=== PATIENT | female | born 1950 | race Caucasian/White ===

== ENCOUNTER 2017-11-24 17:52 | Inpatient (IN) | payer BC, SELFPAY ==
[2017-11-24] VITALS (16 sets, daily range): BP systolic 122–136; BP diastolic 67–91; PULSE 101–117; RESP 8–41; TEMP 36.4–37.2; O2SAT 75–90
--- NOTE | 2017-11-24 18:27 | DI.RAD_ITS ---
SYMPTOMS/DIAGNOSIS: COUGH, SPUTUM, HYPOXIA FRONTAL AND LATERAL CHEST: Comparison examination is 10/12/16. The heart size and pulmonary vasculature are within normal limits and stable. The lungs are free of infiltrates. No pneumothorax is identified. There is blunting of the costophrenic angles seen posteriorly which appear stable and likely reflect scarring. No definite effusions are seen. The bones are intact. Mild degenerative changes are seen in the spine. IMPRESSION: No significant change in appearance of the chest x-ray since . No acute pulmonary process.
--- NOTE | 2017-11-24 18:29 | W.ED.GENAD ---
Discharge Plan Discharge Details Chief Complaint: SOB Clinical Impression: COPD exacerbation Primary Care Provider: Joyce Reeves ED Provider: Jose Antonio Virgen Disposition Patient Disposition: [facility] INPATIENT Condition: Improving Medical Decision Making [facility] Narrative Medical decision making narrative: 67-year-old female smoker presents with cough, congestion, abduction of colored sputum over days time. She arrives to triage pulse of 114 and room air oxygenation of 75%. Patient placed on oxygen and triaged to room. On exam she has diminished breath sounds throughout. Differential diagnosis includes pneumonia, COPD exacerbation, CHF. Patient had IV access established, given DuoNeb inhaled updraft, parenteral steroids, referred for x-ray and laboratory test. Laboratories are notable for hyponatremia of 131. Patient is a white blood cell count of 16, hematocrit 45, platelets 326. Troponin is negative but BNP elevated at 1023. Patient improved with treatment for COPD. Her chest x-ray does not show focal infiltrate. She does not have evidence of pulmonary edema. She has persistent oxygen dependence and mild increased respiratory rate. She will require admission to the hospital for COPD exacerbation. Case was discussed with . ECG Data Attestation: I personally reviewed and interpreted this ECG (s) as follows: Interpretation: Sinus tachycardia, rate is 105, the QRS shows intraventricular conduction delay. There is repolarization abnormality with T-wave inversions in the precordium and inferiorly. Do not have comparisons available. HPI - General Adult General Date/Time Provider Initiated Documentation: 11/24/17 18:10. Limitations to Documentation: no limitations. Information obtained by: patient. History of Present Illness 67 year old F presents to the emergency department with the chief complaint of Shortness of, described as moderate, and is localized to the chest. Patient reports no radiation. Patient started experiencing this day(s) and it has been constant. Rest improves symptom(s), Movement worsens symptoms . Patient notes denies chest pain. HPI Narrative: 67-year-old female smoker presents with 4 days of cough, congestion, production of saez colored sputum. It is worse with ambulation, moderate, improved with rest and with oxygen applied after triage. No fever or known sick contacts Patient denies chest pain. She has no new lower extremity swelling. She has chronic lower extremity swelling which takes diuretic and this has caused her suffer some leg cramps. Related Data Allergies Allergy/AdvReac Type Severity Reaction Status Date / Time No Known Allergies Allergy Unverified 11/24/17 18:18 General Stated Complaint: SOB VIRY: 2 Review of Systems Review of Systems 8 systems reviewed, otherwise - PFSH Social History Smoking/Tobacco Use Status: Current every day Exam Const General: cooperative Orientation: alert and awake HENMT Head: normal to inspection and normocephalic Ears: external ears normal Eyes General: appearance normal, both eyes and all related structures Pupils: PERRL EOM: EOM intact bilaterally Neck Neck: normal visual inspection and full ROM Chest Chest: normal inspection of the chest and normal palpation of entire chest wall Resp Effort & Inspection: audible wheezes, cough and other (Diminished. Questions fine rales at the base) Cardio Rate: regular rate Rhythm: regular rhythm GI Palpation: soft and no hepatosplenomegaly Skin General skin exam: no rashes or lesions noted Neuro General: alert, awake and oriented x3 Extrem General: full ROM and normal capillary refill Psych Mental Status: mental status grossly normal Speech and Movement: speech and movement normal Mood: congruent mood Affect: normal affect Attitude: cooperative Course Vital Signs Temperature 37.2 C 11/24/17 18:11 Pulse 114 H 11/24/17 18:11 Blood Pressure 122/67 11/24/17 18:11 Pulse Oximetry 75 L 11/24/17 18:11 Temperature 37.2 C 11/24/17 18:11 Pulse 114 H 11/24/17 18:11 Blood Pressure 122/67 11/24/17 18:11 Pulse Oximetry 75 L 11/24/17 18:11
--- NOTE | 2017-11-24 18:33 | ED.GENADUL_ITS ---
Discharge Plan Discharge Details Chief Complaint: SOB Clinical Impression: COPD exacerbation Primary Care Provider: Joyce Reeves ED Provider: Jose Antonio Virgen Disposition Patient Disposition: [facility] INPATIENT Condition: Improving Medical Decision Making [facility] Narrative Medical decision making narrative: 67-year-old female smoker presents with cough , congestion, abduction of colored sputum over days time. She arrives to triage pulse of 114 and room air oxygenation of 75%. Patient placed on oxygen and triaged to room. On exam she has diminished breath sounds throughout. Differential diagnosis includes pneumonia, COPD exacerbation, CHF. Patient had IV access established, given DuoNeb inhaled updraft, parenteral steroids, referred for x-ray and laboratory test. Laboratories are notable for hyponatremia of 131. Patient is a white blood cell count of 16, hematocrit 45, platelets 326. Troponin is negative but BNP elevated at 1023. Patient improved with treatment for COPD. Her chest x-ray does not show focal infiltrate. She does not have evidence of pulmonary edema. She has persistent oxygen dependence and mild increased respiratory rate. She will require admission to the hospital for COPD exacerbation. Case was discussed with . ECG Data Attestation: I personally reviewed and interpreted this ECG (s) as follows: Interpretation: Sinus tachycardia, rate is 105, the QRS shows intraventricular conduction delay. There is repolarization abnormality with T-wave inversions in the precordium and inferiorly. Do not have comparisons available. HPI - General Adult General Date/Time Provider Initiated Documentation: 11/24/17 18:10 . Limitations to Documentation: no limitations . Information obtained by: patient . History of Present Illness 67 year old F presents to the emergency department with the chief complaint of Shortness of, described as moderate, and is localized to the chest. Patient reports no radiation. Patient started experiencing this day(s) and it has been constant. Rest improves symptom(s), Movement worsens symptoms . Patient notes denies chest pain. HPI Narrative: 67-year-old female smoker presents with 4 days of cough, congestion, production of saez colored sputum. It is worse with ambulation, moderate, improved with rest and with oxygen applied after triage. No fever or known sick contacts Patient denies chest pain. She has no new lower extremity swelling. She has chronic lower extremity swelling which takes diuretic and this has caused her suffer some leg cramps. Related Data Allergies Allergy/AdvReac Type Severity Reaction Status Date / Time No Known Allergies Allergy Unverified 11/24/17 18:18 General Stated Complaint: SOB VIRY: 2 Review of Systems Review of Systems 8 systems reviewed, otherwise - PFSH Social History Smoking/Tobacco Use Status: Current every day Exam Const General: cooperative Orientation: alert and awake HENMT Head: normal to inspection and normocephalic Ears: external ears normal Eyes General: appearance normal, both eyes and all related structures Pupils: PERRL EOM: EOM intact bilaterally Neck Neck: normal visual inspection and full ROM Chest Chest: normal inspection of the chest and normal palpation of entire chest wall Resp Effort & Inspection: audible wheezes, cough and other (Diminished. Questions fine rales at the base) Cardio Rate: regular rate Rhythm: regular rhythm GI Palpation: soft and no hepatosplenomegaly Skin General skin exam: no rashes or lesions noted Neuro General: alert, awake and oriented x3 Extrem General: full ROM and normal capillary refill Psych Mental Status: mental status grossly normal Speech and Movement: speech and movement normal Mood: congruent mood Affect: normal affect Attitude: cooperative Course Vital Signs Temperature 37.2 C 11/24/17 18:11 Pulse 114 H 11/24/17 18:11 Blood Pressure 122/67 11/24/17 18:11 Pulse Oximetry 75 L 11/24/17 18:11 Temperature 37.2 C 11/24/17 18:11 Pulse 114 H 11/24/17 18:11 Blood Pressure 122/67 11/24/17 18:11 Pulse Oximetry 75 L 11/24/17 18:11
[2017-11-24 18:40] LABS: Abs Immature Grans 0.03 k/cumm (0.0-0.09); Absolute Basophil Count 0.03 k/cumm (0.0-0.2); Absolute Eosinophil Count 0.03 k/cumm (0.0-0.7); Absolute Lymphocyte Count 1.33 k/cumm (1.2-3.4); Basophils % 0.2; Eosinophils % 0.2; HCT 45.6 % (36.0-46.0); HGB 15.2 g/dL (12.0-15.5); Immature Grans % 0.2; Lymphocytes % 7.9; Mean Corp. HGB Concentration 33.3 g/dL (32.0-36.0); Mean Corpuscular Hemoglobin 33.5 pg (27.0-33.0); Mean Corpuscular Volume 100.4 fL (80-95); Mean Platelet Volume 8.3 fL (8.0-11.0); Monocytes % 7.1; Neutrophils % 84.4; Platelet Count 326 x1000/uL (130-400); RBC 4.54 m/cumm (4.00-5.20); White Blood Cell Count 16.86 k/cumm (4.4-10.8)
[2017-11-24] MEDS: methylPREDNISolone SUCC 125 MG VIAL IVP (18:40)
[2017-11-24] MEDS: Albuterol/Ipratropium 3 ML UPD VIAL UPD ×2 (18:51→23:44)
[2017-11-24 18:52] LABS: Absolute Neutrophil Count 14.23 k/cumm (1.2-6.7)
[2017-11-24 19:00] LABS: ALT 16 U/L (12-78); AST 15 U/L (15-37); Albumin 2.9 g/dL (3.4-5.0); Alkaline Phosphatase 105 U/L (46-116); Anion Gap 2.7 mmol/L (3-11); BUN 29 mg/dL (7-18); Bilirubin, Total 0.5 mg/dL (0.2-1.0); CO2 34.3 mmol/L (21.0-32.0); CREATININE 1.13 mg/dL (0.55-1.02); Calcium 9.4 mg/dL (8.5-10.1); Chloride 94 mmol/L (98-107); Estimated GFR 48.33 (mL/min/1.73m2); Glucose 239 mg/dL (70-100); Magnesium 1.6 mg/dL (1.8-2.4); NT-proBNP 1023 pg/mL; Potassium 4.1 mmol/L (3.5-5.1); Sodium 131 mmol/L (136-145); Troponin I < 0.02 ng/mL (0.00-0.06)
--- NOTE | 2017-11-24 19:49 | DI.VRAD_ITS ---
EXAM: XR Chest, 2 Views CLINICAL HISTORY: 67 years old, female; Pain; Chest pain; Additional info: Cough, sputum hypoxia TECHNIQUE: Frontal and lateral views of the chest. COMPARISON: No relevant prior studies available. FINDINGS: Lungs: Blunting of the posterior costophrenic angles, small effusions cannot be excluded. The remainder of the lungs clear. Pleural space: Unremarkable. No pneumothorax. Heart: Borderline cardiomegaly. Mediastinum: Unremarkable. Bones/joints: Unremarkable. IMPRESSION: Blunting of the posterior costophrenic angles, small effusions and/or infiltrates cannot be excluded. The remainder of the lungs clear. Dictated and Authenticated by: Maynor James MD. Ordering:SAHIL JAMES MD
--- NOTE | 2017-11-24 20:03 | W.PM.HP.N ---
CC: SOB HPI: 67 F smoker with h/o COPD, in with 4 days of productive cough and SOB. In ER sat of 75% noted. Given updraft, solumedrol; continued O2 requirmnet, admitted for further treatment. PMH COPD, depression, DM All: Sulfa Med: unknown (family will bring in bottles) PE: 129/79, p 109, rr 17-27, O2 sat 85 % 2l HEENT unremarkable; neck supple; lungs decreased BS, diffues wheeze; heart: distant, RRR; abd: soft, NT; extremities: stasis changes Lab WBC 16K, Na 131, CXR: small effusions, formal reading is otherwise clear, but to my eye possibly mild vascular congestion; BNP 1023, Troponion negative A/P: COPD exacerbation, perhaps with element of (new onset) CHF. Will treat with oral antibiotics, steroids and updrafts. Also trial diuretic and consider ECHO. Family will bring in meds in AM. PFSH Medical History Depression (Chronic) Tobacco abuse (Acute) COPD with acute exacerbation (Acute) Social History Smoking/Tobacco Use Status: Current every day Meds Home Medications Medication Instructions Recorded Confirmed Type albuterol sulfate [ProAir HFA] 2 puff INHALATION Q6H PRN PRN 11/25/17 11/25/17 History aspirin 81 mg PO DAILY 11/25/17 11/25/17 History aspirin [Aspir-81] 1 PO DAILY 11/25/17 History cholecalciferol (vitamin D3) 2 PO DAILY 11/25/17 History cholecalciferol (vitamin D3) 2,000 unit PO DAILY 11/25/17 11/25/17 History [Vitamin D3] cinnamon bark [Cinnamon] 2 PO DAILY 11/25/17 History cyclobenzaprine 1 PO TID PRN PRN 11/25/17 History cyclobenzaprine 1 tab PO TID PRN PRN 11/25/17 11/25/17 History escitalopram oxalate [Lexapro] 1 PO DAILY 11/25/17 History escitalopram oxalate [Lexapro] 20 mg PO DAILY 11/25/17 11/25/17 History glipizide 5 mg PO BID 11/25/17 11/25/17 History glipizide [Glucotrol XL] 1 PO BID 11/25/17 History hydrochlorothiazide 1 PO DAILY 11/25/17 History hydrochlorothiazide 50 mg PO DAILY 11/25/17 11/25/17 History lisinopril 1 PO DAILY 11/25/17 History metformin 1,000 mg PO BID 11/25/17 11/25/17 History metformin 2 BID 11/25/17 History naproxen 1 PO BID PRN PRN 11/25/17 History naproxen 500 mg PO BID PRN 11/25/17 11/25/17 History omega [id number]-fish oil [Fish Oil] 1 PO DAILY 11/25/17 History omega-3 fatty acids 1,000 mg PO DAILY 11/25/17 11/25/17 History rosuvastatin [Crestor] 1 PO DAILY 11/25/17 History rosuvastatin [Crestor] 10 mg PO DAILY 11/25/17 11/25/17 History Allergies Allergy/AdvReac Type Severity Reaction Status Date / Time No Known Allergies Allergy Unverified 11/24/17 18:18 Results Labs : 11/28/17 06:35 11/28/17 06:35 Abnormal lab results 11/24/17 11/24/17 Range/Units 18:35 18:35 WBC 16.86 H (4.4-10.8) k/cumm MCV 100.4 H (80-95) fL MCH 33.5 H (27.0-33.0) pg Absolute Neutrophils 14.23 H (1.2-6.7) k/cumm Absolute Monocytes 1.20 H (0.11-0.7) k/cumm Sodium 131 L (136-145) mmol/L Chloride 94 L (98-107) mmol/L Carbon Dioxide 34.3 H (21.0-32.0) mmol/L Anion Gap 2.7 L (3-11) mmol/L BUN 29 H (7-18) mg/dL Creatinine 1.13 H (0.55-1.02) mg/dL Glucose 239 H (70-100) mg/dL Magnesium 1.6 L (1.8-2.4) mg/dL NT-Pro-B Natriuret Pep 1023 H ( - 299) pg/mL Albumin 2.9 L (3.4-5.0) g/dL Diabetes panel 11/24/17 Range/Units 18:35 Sodium 131 L (136-145) mmol/L Potassium 4.1 (3.5-5.1) mmol/L Chloride 94 L (98-107) mmol/L Carbon Dioxide 34.3 H (21.0-32.0) mmol/L BUN 29 H (7-18) mg/dL Creatinine 1.13 H (0.55-1.02) mg/dL Glucose 239 H (70-100) mg/dL Calcium 9.4 (8.5-10.1) mg/dL AST 15 (15-37) U/L ALT 16 (12-78) U/L Alkaline Phosphatase 105 (46-116) U/L Total Protein 8.0 (6.4-8.2) g/dL Albumin 2.9 L (3.4-5.0) g/dL Calcium panel 11/24/17 Range/Units 18:35 Calcium 9.4 (8.5-10.1) mg/dL Albumin 2.9 L (3.4-5.0) g/dL Pituitary panel 11/24/17 Range/Units 18:35 Sodium 131 L (136-145) mmol/L Potassium 4.1 (3.5-5.1) mmol/L Chloride 94 L (98-107) mmol/L Carbon Dioxide 34.3 H (21.0-32.0) mmol/L BUN 29 H (7-18) mg/dL Creatinine 1.13 H (0.55-1.02) mg/dL Glucose 239 H (70-100) mg/dL Calcium 9.4 (8.5-10.1) mg/dL Adrenal panel 11/24/17 Range/Units 18:35 Sodium 131 L (136-145) mmol/L Potassium 4.1 (3.5-5.1) mmol/L Chloride 94 L (98-107) mmol/L Carbon Dioxide 34.3 H (21.0-32.0) mmol/L BUN 29 H (7-18) mg/dL Creatinine 1.13 H (0.55-1.02) mg/dL Glucose 239 H (70-100) mg/dL Calcium 9.4 (8.5-10.1) mg/dL Total Bilirubin 0.5 (0.2-1.0) mg/dL AST 15 (15-37) U/L ALT 16 (12-78) U/L Alkaline Phosphatase 105 (46-116) U/L Total Protein 8.0 (6.4-8.2) g/dL Albumin 2.9 L (3.4-5.0) g/dL Laboratory Tests 11/24/17 11/24/17 18:35 18:35 WBC 16.86 H RBC 4.54 Hgb 15.2 Hct 45.6 MCV 100.4 H MCH 33.5 H MCHC 33.3 RDW 14.0 Plt Count 326 MPV 8.3 Immature Gran % 0.2 Neutrophils % 84.4 Lymphocytes % 7.9 Monocytes % 7.1 Eosinophils % 0.2 Basophils % 0.2 Absolute Neutrophils 14.23 H Absolute Lymphocytes 1.33 Absolute Monocytes 1.20 H Absolute Eosinophils 0.03 Absolute Basophils 0.03 Sodium 131 L Potassium 4.1 Chloride 94 L Carbon Dioxide 34.3 H Anion Gap 2.7 L BUN 29 H Creatinine 1.13 H Estimated GFR/1.73 m2 48.33 Glucose 239 H Calcium 9.4 Magnesium 1.6 L Total Bilirubin 0.5 AST 15 ALT 16 Alkaline Phosphatase 105 Troponin I < 0.02 NT-Pro-B Natriuret Pep 1023 H Total Protein 8.0 Albumin 2.9 L
[2017-11-24] MEDS: Furosemide 20 MG/2 ML VIAL IVP (22:57)
[2017-11-25] VITALS (12 sets, daily range): BP systolic 112–130; BP diastolic 58–78; PULSE 101–115; RESP 4–28; TEMP 36.4–37.1; O2SAT 87–96
[2017-11-25] MEDS: Normal Saline Flush 10 ML SYR IVP ×3 (02:50→17:47)
[2017-11-25] MEDS: methylPREDNISolone SUCC 40 MG VIAL IVP ×3 (02:51→17:45)
[2017-11-25] MEDS: Albuterol/Ipratropium 3 ML UPD VIAL UPD ×4 (05:50→23:48)
--- NOTE | 2017-11-25 08:26 | PDOC.CMIN ---
- If Service Date Differs Date of service: 11/25/17 Care Management Initial Assess REASON FOR HOSPITALIZATION:: COPD exacerbation, perhaps with element of (new onset) CHF. Will treat with oral antibiotics, steroids and updrafts. Also trial diuretic and consider ECHO. PAST MEDICAL HISTORY/PAST SURGICAL HISTORY:: COPD, depression, DM, current everyday smoker: 3/4 ppd PREVIOUS FUNCTIONAL STATUS/SOCIAL/FAMILY SUPPORTS:: Shira resides alone in [place], [place] with her two dogs; a boxer and a chihuahua. She has a daughter, Effie who resides in [place] and a Grandson, Camilo who resides in [place] as well as a healthy support network of friends per her report. 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 Shira is independent with all ADLs in the community. CURRENT FUNCTIONAL STATUS:: Shira is sitting up on the side of the bed, her daughter at her bedside. She reports feeling exhausted and not sleeping well. She is pleasant and appropriate in interaction. She reports a good stay at [facility] thus far and reports staff has been supportive and responsive. CM provides assessment of current needs; Shira signs up for portal, accepts AD document for review and requests nicotrol inhaler when replacement need is reviewed. CM notified provider; Blanche ROBERTO of nicotene replacement request. ADVANCE DIRECTIVES:: Document provided to patient for review. Has patient been provided with information about the portal?: Yes Did the patient sign up for the portal?: Yes ([email or web address]) CODE STATUS:: Full Code INSURANCE COVERAGE / FINANCIAL ISSUES:: BC/BS CURRENT HOME/COMMUNITY SERVICES/EQUIPMENT:: No current services or equipment. PRIMARY CARE PHYSICIAN:: Joyce Reeves POTENTIAL DISCHARGE NEEDS:: ECHO, Possible coordination of home oxygen; coordinated by RT. Follow up appointment with PCP. PATIENT/FAMILY EDUCATION NEEDS:: Review of discharge instructions, discuss Ask Me Three, provide education materials regarding COPD and CHF; coordinated with RN. ANTICIPATED BARRIERS TO DISCHARGE:: None identified. TRANSPORTATION:: Via private vehicle with family. PLAN:: Shira will be treated with oral antibiotics, steroids and updrafts, possible trial of diuretic and possible ECHO per MD. CM will continue to follow and support discharge planning considerations. Shira, once medically stable will return home. RT and MD will determine need for additional services including possible home O2. Shira will continue to be treated and evaluated for further needs, she will transport via private vehicle with family. Readmission - Within the Past 30 Days Yes or No: N
--- NOTE | 2017-11-25 08:51 | INITIAL_ITS ---
- If Service Date Differs Date of service: 11/25/17 Care Management Initial Assess REASON FOR HOSPITALIZATION:: COPD exacerbation, perhaps with element of (new onset) CHF. Will treat with oral antibiotics, steroids and updrafts. Also trial diuretic and consider ECHO. PAST MEDICAL HISTORY/PAST SURGICAL HISTORY:: COPD, depression, DM, current everyday smoker: 3/4 ppd PREVIOUS FUNCTIONAL STATUS/SOCIAL/FAMILY SUPPORTS:: Shira resides alone in [place], [place] with her two dogs; a boxer and a chihuahua. She has a daughter, Effie who resides in [place] and a Grandson, Camilo who resides in [place] as well as a healthy support network of friends per her report. 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 Shira is independent with all ADLs in the community. CURRENT FUNCTIONAL STATUS:: Shira is sitting up on the side of the bed, her daughter at her bedside. She reports feeling exhausted and not sleeping well. She is pleasant and appropriate in interaction. She reports a good stay at [facility] thus far and reports staff has been supportive and responsive. CM provides assessment of current needs; Shira signs up for portal, accepts AD document for review and requests nicotrol inhaler when replacement need is reviewed. CM notified provider; Blanche ROBERTO of nicotene replacement request. ADVANCE DIRECTIVES:: Document provided to patient for review. Has patient been provided with information about the portal?: Yes Did the patient sign up for the portal?: Yes ([email or web address]) CODE STATUS:: Full Code INSURANCE COVERAGE / FINANCIAL ISSUES:: BC/BS CURRENT HOME/COMMUNITY SERVICES/EQUIPMENT:: No current services or equipment. PRIMARY CARE PHYSICIAN:: Joyce Reeves POTENTIAL DISCHARGE NEEDS:: ECHO, Possible coordination of home oxygen; coordinated by RT. Follow up appointment with PCP. PATIENT/FAMILY EDUCATION NEEDS:: Review of discharge instructions, discuss Ask Me Three, provide education materials regarding COPD and CHF; coordinated with RN. ANTICIPATED BARRIERS TO DISCHARGE:: None identified. TRANSPORTATION:: Via private vehicle with family. PLAN:: Shira will be treated with oral antibiotics, steroids and updrafts, possible trial of diuretic and possible ECHO per MD. CM will continue to follow and support discharge planning considerations. Shira, once medically stable will return home. RT and MD will determine need for additional services including possible home O2. Shira will continue to be treated and evaluated for further needs, she will transport via private vehicle with family. Readmission - Within the Past 30 Days Yes or No: N
[2017-11-25 09:13] LABS: Abs Immature Grans 0.06 k/cumm (0.0-0.09); Absolute Basophil Count 0.01 k/cumm (0.0-0.2); Absolute Lymphocyte Count 0.53 k/cumm (1.2-3.4); Absolute Monocyte Count 0.31 k/cumm (0.11-0.7); Basophils % 0.1; HCT 44.6 % (36.0-46.0); HGB 14.5 g/dL (12.0-15.5); Immature Grans % 0.5; Lymphocytes % 4.4; Mean Corp. HGB Concentration 32.5 g/dL (32.0-36.0); Mean Corpuscular Hemoglobin 33.3 pg (27.0-33.0); Mean Corpuscular Volume 102.5 fL (80-95); Mean Platelet Volume 8.2 fL (8.0-11.0); Monocytes % 2.6; Neutrophils % 92.4; Platelet Count 285 x1000/uL (130-400); RBC 4.35 m/cumm (4.00-5.20); RBC Distribution Width 13.9 % (11.7-14.6); White Blood Cell Count 12.11 k/cumm (4.4-10.8)
[2017-11-25 09:14] LABS: Absolute Neutrophil Count 11.19 k/cumm (1.2-6.7)
[2017-11-25 09:43] LABS: Anion Gap 2.5 mmol/L (3-11); BUN 31 mg/dL (7-18); CO2 36.5 mmol/L (21.0-32.0); CREATININE 1.19 mg/dL (0.55-1.02); Calcium 8.7 mg/dL (8.5-10.1); Chloride 93 mmol/L (98-107); Estimated GFR 45.52 (mL/min/1.73m2); Glucose 300 mg/dL (70-100); Magnesium 1.7 mg/dL (1.8-2.4); Potassium 4.5 mmol/L (3.5-5.1); Sodium 132 mmol/L (136-145)
--- NOTE | 2017-11-25 11:24 | CHAPLAIN ---
Shira was in bed, visiting with family members and friends, when I stopped in. I introduced myself and offered support. Shira wasn't interested further conversation at this point.
[2017-11-25] MEDS: Magnesium Oxide 400 MG TAB PO ×2 (11:29→20:52)
[2017-11-25] MEDS: Insulin Aspart 300 UNITS/3 ML PEN SC ×2 (12:22→18:23)
--- NOTE | 2017-11-25 12:29 | MERGE_ITS ---
*[facility]* * Cardiology* [address] [place] [address] Date of study: 11/25/2017 Transthoracic Echocardiography M-mode, complete 2D, complete spectral Doppler, and color Doppler *STUDY CONCLUSIONS* Summary: 1. Left ventricle: The cavity size was normal. Wall thickness was increased in a pattern of mild LVH. Systolic function was normal. The estimated ejection fraction was 60-65%. Wall motion was normal; there were no regional wall motion abnormalities. 2. Ventricular septum: The contour showed diastolic flattening and systolic flattening. These changes are consistent with RV volume and RV pressure overload. 3. Aortic valve: Moderate focal calcification involving the noncoronary cusp. 4. Left atrium: The atrium was moderately to severely dilated. 5. Right ventricle: The cavity size was mildly dilated. Wall thickness was mildly increased. Systolic function was mildly reduced. 6. Atrial septum: There was increased thickness of the septum, consistent with lipomatous hypertrophy. 7. Pulmonary arteries: Pulmonary systolic pressure was moderately increased. PA peak pressure: 53mm Hg (S). *PATIENT PRESENTATION* Height: 162.6cm ((64in) ) S/D Pressure: 112 / 58 Weight: 136.1kg ((299.4lb) ) BSA: 2.56m^2 Test start time: 12:40 PM. Test stop time: 01:30 PM. PERFORMING Unknown PERFORMING [facility] ASH P[employer] WORKER RT Vanesa AdamsR)(CT), [facility] ORDERING Noni Badillo REFERRING Noni Badillo *PROCEDURE DATA* Procedure information: The patient was identified by two identifiers. This study was interpreted by [facility]. Pertinent images and digital data are archived for permanent storage and are available for subsequent review. No prior study was available for comparison. Study status: Routine. Transthoracic echocardiography. M-mode, complete 2D, complete spectral Doppler, and color Doppler. A Transthoracic Echocardiogram was performed. Scanning was performed from the parasternal, apical, subcostal, and suprasternal notch acoustic windows. Images were obtained using an [id number] cardiac ultrasound machine. Image quality was fair. The study was technically limited due to body habitus. Study completion: The patient tolerated the procedure well. History: PMH: CHF. *CARDIAC ANATOMY* Left ventricle: The cavity size was normal. Wall thickness was increased in a pattern of mild LVH. Systolic function was normal. The estimated ejection fraction was 60-65%. Wall motion was normal; there were no regional wall motion abnormalities. Aortic valve: Trileaflet; mildly thickened, mildly calcified leaflets. Moderate focal calcification involving the noncoronary cusp. Mobility was not restricted. Doppler: Transvalvular velocity was within the normal range. There was no stenosis. There was no significant regurgitation. VTI ratio of LVOT to aortic valve: 0.64. Valve area (VTI): 2.2cm^2. Indexed valve area (VTI): 0.9cm^2/m^2. Peak velocity ratio of LVOT to aortic valve: 0.6. Valve area (Vmax): 2.1cm^2. Indexed valve area (Vmax): 0.8cm^2/m^2. Mean velocity ratio of LVOT to aortic valve: 0.66. Valve area (Vmean): 2.3cm^2. Indexed valve area (Vmean): 0.9cm^2/m^2. Mean gradient (S): 12.1mm Hg. Peak gradient (S): 22.8mm Hg. Aorta: Aortic root: The aortic root was normal in size. Ascending aorta: The ascending aorta was normal in size. Mitral valve: Structurally normal valve. Mobility was not restricted. Doppler: Transvalvular velocity was within the normal range. There was no evidence for stenosis. There was no significant regurgitation. Valve area by pressure half-time: 7.4cm^2. Indexed valve area by pressure half-time: 2.9cm^2/m^2. Peak gradient (D): 4.3mm Hg. Left atrium: The atrium was moderately to severely dilated. Atrial septum: There was increased thickness of the septum, consistent with lipomatous hypertrophy. Right ventricle: The cavity size was mildly dilated. Wall thickness was mildly increased. Systolic function was mildly reduced. Ventricular septum: The contour showed diastolic flattening and systolic flattening. These changes are consistent with RV volume and RV pressure overload. Pulmonic valve: Poorly visualized. Doppler: Transvalvular velocity was within the normal range. There was no evidence for stenosis. There was no significant regurgitation. Tricuspid valve: Structurally normal valve. Doppler: Transvalvular velocity was within the normal range. There was no evidence for stenosis. There was mild regurgitation. Pulmonary artery: Poorly visualized. Pulmonary systolic pressure was moderately increased. Right atrium: The atrium was normal in size. Pericardium: A prominent pericardial fat pad was present. There was no pericardial effusion. Systemic veins: Inferior vena cava: Well visualized. The vessel was patent and normal in size. The respirophasic diameter changes were in the normal range (greater than or equal to 50%), consistent with normal central venous pressure. Baseline ECG: Tachycardia with wide QRS Measurements Left ventricle Value Reference LV ID, ED, PLAX 4.7 cm 3.5 - 6.0 LV ID, ES, PLAX 3.2 cm 2.1 - 4.0 LV PW thickness, ED, PLAX 1.2 cm LV end-diastolic volume, 1-p A2C 64 ml LV end-diastolic volume, 1-p A4C 79 ml LV ejection fraction, 1-p A4C 64 % LV e', lateral 0.075 m/sec LV E/e', lateral 14 LV e', medial 0.079 m/sec LV E/e', medial 13 LV e', average 0.077 m/sec LV E/e', average 13 Ventricular septum Value Reference IVS thickness, ED, PLAX 1.3 cm LVOT Value Reference LVOT ID, A-P 2.1 cm LVOT area 3.4 cm^2 LVOT peak velocity, S 1.44 m/sec LVOT mean velocity, S 1.1 m/sec LVOT VTI, S 25.2 cm LVOT peak gradient, S 8.3 mm Hg LVOT mean gradient, S 5.3 mm Hg Stroke volume (SV), LVOT DP 86 ml Stroke index (SV/bsa), LVOT DP 34 ml/m^2 Aortic valve Value Reference Aortic valve peak velocity, S 2.4 m/sec Aortic valve mean velocity, S 1.66 m/sec Aortic valve VTI, S 39.4 cm Aortic mean gradient, S 12.1 mm Hg Aortic peak gradient, S 22.8 mm Hg VTI ratio, LVOT/AV 0.64 Aortic valve area, VTI 2.2 cm^2 Velocity ratio, peak, LVOT/AV 0.6 Aortic valve area, peak velocity 2.1 cm^2 Velocity ratio, mean, LVOT/AV 0.66 Aortic valve area, mean velocity 2.3 cm^2 Aortic valve area/bsa, mean velocity 0.9 cm^2/m^2 Aorta Value Reference Aortic root ID, ED 2.9 cm Ascending aorta ID, A-P, S 2.6 cm Left atrium Value Reference LA ID, A-P, ES 3.5 cm LA ID/bsa, A-P 1.4 cm/m^2 <=2.2 LA area, ES, A4C (H) 27.9 cm^2 8.8 - 23.4 LA area, ES, A2C 14 cm^2 LA volume/bsa, ES, 1-p A4C 43 ml/m^2 LA volume, ES, 2-p 66 ml LA volume/bsa, ES, 2-p 26 ml/m^2 LA/aortic root ratio 1.22 Mitral valve Value Reference Mitral E-wave peak velocity 1.03 m/sec Mitral A-wave peak velocity 1.28 m/sec Mitral deceleration time (L) 103 ms 150 - 230 Mitral pressure half-time 30 ms Mitral peak gradient, D 4.3 mm Hg Mitral E/A ratio, peak 0.81 Mitral valve area, PHT, DP 7.4 cm^2 Pulmonary arteries Value Reference PA pressure, S, DP (H) 53 mm Hg <=30 Tricuspid valve Value Reference Tricuspid regurg peak velocity 3.3 m/sec Tricuspid peak RV-RA gradient 42.9 mm Hg Right atrium Value Reference RA area, ES, A4C 15.1 cm^2 8.3 - 19.5 Systemic veins Value Reference Estimated CVP 10 mm Hg Right ventricle Value Reference RV pressure, S, DP (H) 53 mm Hg <=30 Legend: (L) and (H) rommel values outside specified reference range. I have personally reviewed the images and have reviewed and edited the reported findings. Electronically signed by Erin Lewis 11/25/2017 16:04
--- NOTE | 2017-11-25 12:30 | PHARADMIT ---
Addendum entered by Petey Bonilla III 11/29/17 12:54: Pharmacy Note Subjective Objective Assessment Plan Plan for discharge tomorrow. Original Note: Addendum entered by Petey Bonilla III 11/28/17 11:26: Pharmacy Note Subjective Still has productive cough, Afebrile requires O2 Objective VS-OK, pain: 0 Lytes,SCrH&H,Plts-OK WBC-13.66, Assessment MD to start Pednisone taper, Levaquin PO on day 5. Plan Plan is for discharge in AM if CM can arrange O2 Original Note: Addendum entered by Petey Bonilla III 11/27/17 13:05: Pharmacy Note Subjective Has clear sputum when coughing (CHF vs Pneumonia on Chest X-ray) get SOB with ambulation. Objective VS-OK Pain:0 Na-135 K+4.4 SCr-1.10 WBC-15.81 H&H,Plts-OK FSBS-294 BG-250 Small BM today Assessment Steroid to Oral Prednisone and taper started, Levaquin PO continues, Lexapro remains o hld (QTc) On Lovenox. Lisinopril & Lasix started. On Glipizide and Aspart SS for diabetes. Patient is a smoker and has been using the Nicotrol inhaler with success. Plan Breathing has improved and may be back to baseline soon. Original Note: Addendum entered by Petey Bonilla III 11/26/17 14:51: Pharmacy Note Subjective ECHO Cardiogram show EF of 60-65%. Breathing has improved, this may be a little CHF( New onset) Objective VS-OK Na-133 K+4.3 Mag-2.1 SCr- 0.99 WBC- 16.76 H&H-OK Assessment Lexapro held while on Levaquin (which is now PO), On Steroids (wbc-up) Plan Discharge when MD thinks she is ready. Original Note: Admission Pharmacy Clinical Review COPD Code Status Full Code Current Weight 136.078 kg Renally Cleared and Narrow Therapeutic Index Meds CRCL ~41ML/MIN QTc Value / Action Taken YESTERDAY VALUE 576, WILL LET MD KNOW LEVOFLOXACIN/ESCITALOPRAM BP Control, Fever 112/58 AFEBRILE Electrolytes reviewed Na 132, mag 1.7 DVT Prophylaxis No , will ask provider Opiate Usage / Scheduled Bowel Regimen Ordered NO/NO Plt/SCr for Heparin / Enoxaparin 285/1.19 INR for Warfarin NA H/H stable, WBC/Bands 14.5/44.6 WBC 12.11 Antibiotic appropriateness LEVOFLOXACIN Cultures and Sensitivities NONE Surgical ABX d/c within 24 hr NA DM control / Insulin Dosing FS 328, INSULIN ASPART, GLIPIZIDE Heart Failure (Check EF%) (DARCI's, B-Block, Diuretics) IV to PO Switch Home Meds Reviewed Home Meds Not Ordered cholecalciferol (vitamin D3) [Vitamin D3] 2,000 unit PO DAILY 11/25/17 cinnamon bark [Cinnamon] 2 PO DAILY 11/25/17 [History] cyclobenzaprine 1 PO TID PRN PRN 11/25/17 [History] lisinopril 1 PO DAILY 11/25/17 [History] metformin 1,000 mg PO BID 11/25/17 [History Confirmed 11/25/17] naproxen 500 mg PO BID PRN 11/25/17 [History Confirmed 11/25/17] omega-3 fatty acids 1,000 mg PO DAILY 11/25/17 Comments
[2017-11-25] MEDS: glipiZIDE C.R. 5 MG TABCR PO ×2 (13:55→20:52)
[2017-11-25] MEDS: Albuterol 2.5 MG/3 ML INH SOLN VIAL UPD (14:22)
--- NOTE | 2017-11-25 14:47 | DM INPTCON_ITS ---
DESCRIPTION/ASSESSMENT: Appreciate diabetes consult for Shira Kelly who is hospitalized with COPD. She is medically managed for diabetes at home with Glipizide and Metformin. No current A1c. BMI 51. During this hospitalization blood sugars are in the 2-400s. Nursing reports she is eating candy between meals. She is receiving prednisolone 40mg. She has just started insulin correction at the moderate level up from sensitive level. She is receiving her usual Glipizide dose. Attempted to visit twice today but she was not available. It is unclear what her diabetes self management is at home and since there is no A1c do not know her blood sugar control. INTERVENTION: Ms Kelly may need insulin for carbohydrate, a higher insulin correction dose, or a dose to cover her Prednisone induced hyperglycemia. NPH at .4x 136 (weight in KG) = 54 units, however suggest initiating at time of steroid administration at 1/2 that and consider increasing based on results: 27 units NPH. or Consider adding mealtime insulin at 1 unit [id number] carbohydrate and increase insulin correction to resistant level PLAN: As above Will f/u with her regarding her self management at home Will follow blood sugars Suggest current A1c
--- NOTE | 2017-11-25 15:41 | W.PM.PROGNOT ---
Date of service: 11/25/17 Time of Service: 15:42 Assessment and Plan (1) COPD with acute exacerbation: Current visit: Yes Status: Acute Symptoms improved. WBC improving. Continue antibiotics, IV steroids, updrafts and supplemental oxygen. Reassess labs in the morning. Continue current treatment. Will likely need ambulatory pulse oximetry and possible home oxygen upon discharge. (2) Tobacco abuse: Current visit: Yes Status: Acute Smoking cessation discussed. Plan to provide nicotine replacement and continue to discuss quitting smoking. Subjective Interval history since last seen: Shira is a 67 year old female, current smoker, who is being treated for COPD exacerbation. She was also noted to have CHF versus PNA on chest x-ray. She underwent an echocardiogram today, the results are currently pending. She is being treated with Levaquin, IV steroids, updrafts and supplemental oxygen. Her white blood cell count has improved. Her oxygen saturation has been in the high 80s with oxygen at 3l, she does not have home oxygen. She reports feeling significantly better today. She does not feel that it is difficult to breathe, no shortness of breath, she denies wheezing. She reports that her cough is improving, she continues to cough up saez, blood streaked sputum. She denies chest pain/pressure, palpitations, no nausea, vomiting, diarrhea or abdominal discomfort. She denies edema. She is experiencing nicotine cravings and asking for replacement. She did have high blood sugars, however, she was eating candy that her family was providing, they have removed the candy at this point. Exam Const General: cooperative, comfortable (sitting at edge of bed, eating lunch, conversing with family.) and no acute distress [facility] Head: normocephalic and atraumatic Mouth: moist mucous membranes Neck Neck: supple Resp Effort & Inspection: normal respiratory effort (respirations even and unlabored, O2 via nasal cannula.) Auscultation: diminished lung sounds (Lung sounds diminished bilaterally. Wheezes noted bilateral upper bell anteriorly. ) Cardio Rate: regular rate and tachycardic Heart Sounds: S1 normal, S2 normal and no murmurs GI Palpation: soft (obese.) and nontender Auscultation: normal bowel sounds Neuro General: alert, awake, oriented x3 and moves all extremities Speech: speech normal Extrem General: no clubbing, cyanosis or edema (Stasis changes to bilateral lower extremities, no significant edema.) and no calf tenderness bilaterally Objective Objective Clinical Data: Abnormal lab results 11/24/17 11/24/17 11/25/17 Range/Units 18:35 18:35 08:45 WBC 16.86 H (4.4-10.8) k/cumm MCV 100.4 H (80-95) fL MCH 33.5 H (27.0-33.0) pg Absolute Neutrophils 14.23 H (1.2-6.7) k/cumm Absolute Lymphocytes (1.2-3.4) k/cumm Absolute Monocytes 1.20 H (0.11-0.7) k/cumm Sodium 131 L 132 L (136-145) mmol/L Chloride 94 L 93 L (98-107) mmol/L Carbon Dioxide 34.3 H 36.5 H (21.0-32.0) mmol/L Anion Gap 2.7 L 2.5 L (3-11) mmol/L BUN 29 H 31 H (7-18) mg/dL Creatinine 1.13 H 1.19 H (0.55-1.02) mg/dL Glucose 239 H 300 H (70-100) mg/dL Magnesium 1.6 L 1.7 L (1.8-2.4) mg/dL NT-Pro-B Natriuret Pep 1023 H ( - 299) pg/mL Albumin 2.9 L (3.4-5.0) g/dL 11/25/17 Range/Units 08:45 WBC 12.11 H (4.4-10.8) k/cumm MCV 102.5 H (80-95) fL MCH 33.3 H (27.0-33.0) pg Absolute Neutrophils 11.19 H (1.2-6.7) k/cumm Absolute Lymphocytes 0.53 L (1.2-3.4) k/cumm Absolute Monocytes (0.11-0.7) k/cumm Sodium (136-145) mmol/L Chloride (98-107) mmol/L Carbon Dioxide (21.0-32.0) mmol/L Anion Gap (3-11) mmol/L BUN (7-18) mg/dL Creatinine (0.55-1.02) mg/dL Glucose (70-100) mg/dL Magnesium (1.8-2.4) mg/dL NT-Pro-B Natriuret Pep ( - 299) pg/mL Albumin (3.4-5.0) g/dL Vital Signs Temp 37.1 C 11/25/17 14:13 Pulse 104 H 11/25/17 14:13 Resp 22 11/25/17 08:00 BP 123/74 11/25/17 14:13 Pulse Ox 87 L 11/25/17 14:13 Intake & Output 11/24/17 11/25/17 11/25/17 23:59 11:59 23:59 Intake Total Output Total 500 / 500 600 / 600 Balance -500 / -500 -590 / -590 Weight 136.078 kg Intake: IV Output: Urine 500 / 500 600 / 600 Other: Urine Color Yellow Yellow Urine Appearance Cloudy Clear Urine Odor Normal Normal Comment 100 IN HAT AND ABOUT SAME AMT ON FLOOR. PT MORTIFIED. PROVIDED BSC. Voiding Methods Toilet Bedside Commode Laboratory Results WBC 12.11 k/cumm (4.4-10.8) H 11/25/17 08:45 RBC 4.35 m/cumm (4.00-5.20) 11/25/17 08:45 Hgb 14.5 g/dL (12.0-15.5) 11/25/17 08:45 Hct 44.6 % (36.0-46.0) 11/25/17 08:45 MCV 102.5 fL (80-95) H 11/25/17 08:45 MCH 33.3 pg (27.0-33.0) H 11/25/17 08:45 MCHC 32.5 g/dL (32.0-36.0) 11/25/17 08:45 RDW 13.9 % (11.7-14.6) 11/25/17 08:45 Plt Count 285 x1000/uL (130-400) 11/25/17 08:45 MPV 8.2 fL (8.0-11.0) 11/25/17 08:45 Immature Gran % 0.5 11/25/17 08:45 Neutrophils % 92.4 11/25/17 08:45 Lymphocytes % 4.4 11/25/17 08:45 Monocytes % 2.6 11/25/17 08:45 Eosinophils % 0.0 11/25/17 08:45 Basophils % 0.1 11/25/17 08:45 Absolute Neutrophils 11.19 k/cumm (1.2-6.7) H 11/25/17 08:45 Absolute Lymphocytes 0.53 k/cumm (1.2-3.4) L 11/25/17 08:45 Absolute Monocytes 0.31 k/cumm (0.11-0.7) 11/25/17 08:45 Absolute Eosinophils 0.00 k/cumm (0.0-0.7) 11/25/17 08:45 Absolute Basophils 0.01 k/cumm (0.0-0.2) 11/25/17 08:45 Sodium 132 mmol/L (136-145) L 11/25/17 08:45 Potassium 4.5 mmol/L (3.5-5.1) 11/25/17 08:45 Chloride 93 mmol/L (98-107) L 11/25/17 08:45 Carbon Dioxide 36.5 mmol/L (21.0-32.0) H 11/25/17 08:45 Anion Gap 2.5 mmol/L (3-11) L 11/25/17 08:45 BUN 31 mg/dL (7-18) H 11/25/17 08:45 Creatinine 1.19 mg/dL (0.55-1.02) H 11/25/17 08:45 Estimated GFR/1.73 m2 45.52 (mL/min/1.73m2) 11/25/17 08:45 Glucose 300 mg/dL (70-100) H 11/25/17 08:45 Calcium 8.7 mg/dL (8.5-10.1) 11/25/17 08:45 Magnesium 1.7 mg/dL (1.8-2.4) L 11/25/17 08:45 Total Bilirubin 0.5 mg/dL (0.2-1.0) 11/24/17 18:35 AST 15 U/L (15-37) 11/24/17 18:35 ALT 16 U/L (12-78) 11/24/17 18:35 Alkaline Phosphatase 105 U/L (46-116) 11/24/17 18:35 Troponin I < 0.02 ng/mL (0.00-0.06) 11/24/17 18:35 NT-Pro-B Natriuret Pep 1023 pg/mL (-299) H 11/24/17 18:35 Total Protein 8.0 g/dL (6.4-8.2) 11/24/17 18:35 Albumin 2.9 g/dL (3.4-5.0) L 11/24/17 18:35
[2017-11-25] MEDS: Enoxaparin 40 MG/0.4 ML SYR SC (17:47)
[2017-11-25] MEDS: Escitalopram 20 MG TAB PO (22:08)
[2017-11-26] VITALS (12 sets, daily range): BP systolic 122–154; BP diastolic 72–89; PULSE 61–114; RESP 4–28; TEMP 36.3–36.8; O2SAT 86–96
[2017-11-26] MEDS: methylPREDNISolone SUCC 40 MG VIAL IVP (01:40)
[2017-11-26] MEDS: Albuterol/Ipratropium 3 ML UPD VIAL UPD ×3 (06:01→18:03)
[2017-11-26 07:25] LABS: HCT 46.7 % (36.0-46.0); Mean Corp. HGB Concentration 32.1 g/dL (32.0-36.0); Mean Corpuscular Hemoglobin 32.9 pg (27.0-33.0); Mean Corpuscular Volume 102.4 fL (80-95); Mean Platelet Volume 8.3 fL (8.0-11.0); Platelet Count 311 x1000/uL (130-400); RBC 4.56 m/cumm (4.00-5.20); RBC Distribution Width 13.8 % (11.7-14.6); White Blood Cell Count 16.76 k/cumm (4.4-10.8)
[2017-11-26 07:32] LABS: Anion Gap 0.8 mmol/L (3-11); BUN 39 mg/dL (7-18); CO2 37.2 mmol/L (21.0-32.0); CREATININE 0.99 mg/dL (0.55-1.02); Calcium 9.6 mg/dL (8.5-10.1); Chloride 95 mmol/L (98-107); Estimated GFR 56.29 (mL/min/1.73m2); Glucose 267 mg/dL (70-100); Magnesium 2.1 mg/dL (1.8-2.4); Potassium 4.3 mmol/L (3.5-5.1); Sodium 133 mmol/L (136-145)
[2017-11-26] MEDS: Normal Saline Flush 10 ML SYR IVP (08:09)
[2017-11-26] MEDS: Aspirin 81 MG CHEW PO (08:09)
[2017-11-26] MEDS: Magnesium Oxide 400 MG TAB PO ×2 (08:09→19:42)
[2017-11-26] MEDS: Insulin Aspart 300 UNITS/3 ML PEN SC ×3 (08:10→17:29)
[2017-11-26] MEDS: Rosuvastatin 10 MG TAB PO (08:10)
[2017-11-26] MEDS: glipiZIDE C.R. 5 MG TABCR PO ×2 (08:10→19:42)
[2017-11-26] MEDS: Hydrochlorothiazide 25 MG TAB 50 MG PO (08:10)
--- NOTE | 2017-11-26 11:51 | DM INPTCON_ITS ---
DESCRIPTION/ASSESSMENT: Visited with Shira and her family present in the room to assess self management interest and need. Shira states she does not monitor her blood sugars at home and she sees her provider every 6 months. She assumes she is doing fine because they don't change her medications. INTERVENTION: She declined the offer for self management support for home. Continue to support increased insulin dosing as outlined in previous note. PLAN: Will follow blood sugars and remain available for self management support as desired.
--- NOTE | 2017-11-26 12:17 | PDOC.CMDIS ---
LACE Index Scoring Tool - Questions: Length of Stay (in days): 3 Acuity (Admit via E.D.?): Yes Comorbidities: Chronic Pulmonary Disease E.D. Visits: 1 - Answers: Total Score: 9 Risk of Readmission: Low Risk Care Management Discharge Reason for Hospitalization: COPD exacerbation, perhaps with element of (new onset) CHF. Will treat with oral antibiotics, steroids and updrafts. Also trial diuretic and consider ECHO. Discharge Plan: Shira has shown improvement and discharge to home when ready per MD. RT and MD will determine need for and coordination of home O2. Shira will follow up with her PCP and plan of care and transport via private vehicle with family. Patient/Family Education Needs: Review discharge instructions, discuss Ask Me Three. Services Needed at Discharge: Oxygen Therapy
--- NOTE | 2017-11-26 13:12 | W.PM.PROGNOT ---
Date of service: 11/26/17 Time of Service: 13:12 Assessment and Plan (1) COPD with acute exacerbation: Current visit: Yes Status: Acute Symptoms improved. White blood cell count is elevated today, likely related to steroids. Continue antibiotics, updrafts and supplemental oxygen. Transition to oral prednisone. Respiratory Therapy will preform ambulatory pulse oximetry. Will likely need home oxygen upon discharge. Reassess labs in the morning. (2) Tobacco abuse: Current visit: Yes Status: Acute Smoking cessation discussed. She is using a nicotrol inhaler which is helping her cravings. Continue nicotine replacement. (3) Depression: Current visit: Yes Status: Chronic She normally takes lexapro for depression, however, due to concerns of potential QTc prolongation with Lexapro combined with Levaquin, her lexapro has been held. Plan to reinitiate Lexapro after 2 more days of antibiotic therapy. Subjective Interval history since last seen: Shira is a 67 year old female, current smoker, who is being treated for COPD exacerbation. She was also noted to have CHF versus PNA on chest x-ray. She underwent an echocardiogram yesterday, which revealed an LVEF of 60-65%, LV Wall thickness was increased in a pattern of mild LVH. Systolic function was normal, there were no regional wall motion abnormalities. Ventricular septum showed diastolic and systolic flattening, consistent with RV volume and RV pressure overload. Aortic valve had moderate focal calcification involving the noncoronary cusp. Left atrium was moderately to severely dilated. Right ventricle cavity size was mildly dilated, wall thickness was mildly increased, systolic function was mildly reduced. Atrial septum had increased thickness, consistent with lipomatous hypertrophy. Pulmonary systolic pressure was moderately increased at 53 mmHg. We discussed the possibility of her having sleep apnea. Her daughter believes that she does have sleep apnea, she has been referred for a sleep study but she has been unable to follow through with the test. She is advised to have the sleep study done to avoid possible complications related to sleep apnea. She is being treated with Levaquin, updrafts and supplemental oxygen. She was previously on IV steroids and is transitioning to oral prednisone today. Her white blood cell count is elevated today, likely related to steroids. Her oxygen saturation has improved. She reports feeling significantly better today. She does not feel that it is difficult to breathe, no shortness of breath, she denies wheezing. She reports that her cough is improving, she continues to produce sputum, however it is clear today. She denies chest pain/pressure, palpitations, no nausea, vomiting, diarrhea or abdominal discomfort. She is tolerating her diet. She denies edema. Levy nicotine cravings have improved with nicotrol inhaler. Her blood sugars have improved since yesterday, however, she continues to have elevated fingersticks, possibly due to steroids. Exam Const General: cooperative, comfortable (sitting at edge of bed, eating lunch, conversing with family.) and no acute distress Orientation: alert and oriented x3 [facility] Head: normocephalic and atraumatic Mouth: moist mucous membranes Neck Neck: full ROM and supple Resp Effort & Inspection: normal respiratory effort (respirations even and unlabored, O2 via nasal cannula.) and cough Auscultation: diminished lung sounds (Lung sounds diminished bilaterally. Wheezes noted bilateral upper bell anteriorly. ) and wheezes (expiratory wheezes noted throughout.) Cardio Rate: regular rate and not tachycardic Heart Sounds: S1 normal, S2 normal and no murmurs GI Palpation: soft (obese.) and nontender Auscultation: normal bowel sounds Skin General skin exam: no rashes or lesions noted Neuro General: alert, awake, oriented x3 and moves all extremities Speech: speech normal Extrem General: full ROM, normal capillary refill, no clubbing, cyanosis or edema (Stasis changes to bilateral lower extremities, no significant edema.) and no calf tenderness bilaterally Psych Affect: normal affect Attitude: cooperative Objective Objective Clinical Data: Abnormal lab results 11/26/17 11/26/17 Range/Units 06:20 06:20 WBC 16.76 H D (4.4-10.8) k/cumm Hct 46.7 H (36.0-46.0) % MCV 102.4 H (80-95) fL Sodium 133 L (136-145) mmol/L Chloride 95 L (98-107) mmol/L Carbon Dioxide 37.2 H (21.0-32.0) mmol/L Anion Gap 0.8 L (3-11) mmol/L BUN 39 H (7-18) mg/dL Glucose 267 H (70-100) mg/dL Vital Signs Temp 36.5 C 11/26/17 07:35 Pulse 91 H 11/26/17 07:53 Resp 19 11/26/17 07:35 BP 129/89 11/26/17 07:35 Pulse Ox 90 L 11/26/17 08:00 Intake & Output 11/25/17 11/26/17 11/26/17 23:59 11:59 23:59 Intake Total 480 / 480 210 / 210 480 / 480 Output Total 500 / 500 Balance 480 / 480 -290 / -290 480 / 480 Intake: IV 10 Oral 480 / 480 200 / 200 480 / 480 Output: Urine 500 / 500 Other: Urine Color Pale Urine Appearance Clear Clear Voiding Methods Toilet Laboratory Results WBC 16.76 k/cumm (4.4-10.8) H D 11/26/17 06:20 RBC 4.56 m/cumm (4.00-5.20) 11/26/17 06:20 Hgb 15.0 g/dL (12.0-15.5) 11/26/17 06:20 Hct 46.7 % (36.0-46.0) H 11/26/17 06:20 MCV 102.4 fL (80-95) H 11/26/17 06:20 MCH 32.9 pg (27.0-33.0) 11/26/17 06:20 MCHC 32.1 g/dL (32.0-36.0) 11/26/17 06:20 RDW 13.8 % (11.7-14.6) 11/26/17 06:20 Plt Count 311 x1000/uL (130-400) 11/26/17 06:20 MPV 8.3 fL (8.0-11.0) 11/26/17 06:20 Immature Gran % 0.5 11/25/17 08:45 Neutrophils % 92.4 11/25/17 08:45 Lymphocytes % 4.4 11/25/17 08:45 Monocytes % 2.6 11/25/17 08:45 Eosinophils % 0.0 11/25/17 08:45 Basophils % 0.1 11/25/17 08:45 Absolute Neutrophils 11.19 k/cumm (1.2-6.7) H 11/25/17 08:45 Absolute Lymphocytes 0.53 k/cumm (1.2-3.4) L 11/25/17 08:45 Absolute Monocytes 0.31 k/cumm (0.11-0.7) 11/25/17 08:45 Absolute Eosinophils 0.00 k/cumm (0.0-0.7) 11/25/17 08:45 Absolute Basophils 0.01 k/cumm (0.0-0.2) 11/25/17 08:45 Sodium 133 mmol/L (136-145) L 11/26/17 06:20 Potassium 4.3 mmol/L (3.5-5.1) 11/26/17 06:20 Chloride 95 mmol/L (98-107) L 11/26/17 06:20 Carbon Dioxide 37.2 mmol/L (21.0-32.0) H 11/26/17 06:20 Anion Gap 0.8 mmol/L (3-11) L 11/26/17 06:20 BUN 39 mg/dL (7-18) H 11/26/17 06:20 Creatinine 0.99 mg/dL (0.55-1.02) 11/26/17 06:20 Estimated GFR/1.73 m2 56.29 (mL/min/1.73m2) 11/26/17 06:20 Glucose 267 mg/dL (70-100) H 11/26/17 06:20 Calcium 9.6 mg/dL (8.5-10.1) 11/26/17 06:20 Magnesium 2.1 mg/dL (1.8-2.4) 11/26/17 06:20 Total Bilirubin 0.5 mg/dL (0.2-1.0) 11/24/17 18:35 AST 15 U/L (15-37) 11/24/17 18:35 ALT 16 U/L (12-78) 11/24/17 18:35 Alkaline Phosphatase 105 U/L (46-116) 11/24/17 18:35 Troponin I < 0.02 ng/mL (0.00-0.06) 11/24/17 18:35 NT-Pro-B Natriuret Pep 1023 pg/mL (-299) H 11/24/17 18:35 Total Protein 8.0 g/dL (6.4-8.2) 11/24/17 18:35 Albumin 2.9 g/dL (3.4-5.0) L 11/24/17 18:35
--- NOTE | 2017-11-26 16:32 | PDOC.CMPRO ---
Care Management Progress Note S/O: Shira was sitting up on the side of the bed when BROOKLYNN met with her. She has improved significantly but not yet ready for discharge per provider and RT. She will continue to be monitored as she progresses toward discharge. Rivera of RT reports Shira meets criteria and qualifies for home O2 which her insurance will cover and Rivera will coordinate. He reports feeling she will only require this service for a period of time. A: 67 year old female admitted to [facility] 11/24/17 for COPD Exacerbation P: Shira will return home when ready per MD. CM reviewed smoking cessation support and community resources. Shira will transport via private vehicle with her family.
--- NOTE | 2017-11-26 16:41 | CMPROGNOTE_ITS ---
Care Management Progress Note S/O: Shira was sitting up on the side of the bed when BROOKLYNN met with her. She has improved significantly but not yet ready for discharge per provider and RT. She will continue to be monitored as she progresses toward discharge. Rivera of RT reports Shira meets criteria and qualifies for home O2 which her insurance will cover and Rivera will coordinate. He reports feeling she will only require this service for a period of time. A: 67 year old female admitted to [facility] 11/24/17 for COPD Exacerbation P: Shira will return home when ready per MD. CM reviewed smoking cessation support and community resources. Shira will transport via private vehicle with her family.
[2017-11-26] MEDS: Enoxaparin 40 MG/0.4 ML SYR SC (16:48)
[2017-11-26] MEDS: predniSONE 20 MG TAB 40 MG PO (19:42)
[2017-11-27] VITALS (7 sets, daily range): BP systolic 109–119; BP diastolic 54–65; PULSE 86–96; RESP 8–20; TEMP 36.1–36.7; O2SAT 86–96
[2017-11-27] MEDS: Albuterol/Ipratropium 3 ML UPD VIAL UPD ×5 (00:22→23:30)
[2017-11-27 07:28] LABS: HCT 45.8 % (36.0-46.0); HGB 15.1 g/dL (12.0-15.5); Mean Corpuscular Hemoglobin 33.5 pg (27.0-33.0); Mean Corpuscular Volume 101.6 fL (80-95); Mean Platelet Volume 8.1 fL (8.0-11.0); Platelet Count 345 x1000/uL (130-400); RBC 4.51 m/cumm (4.00-5.20); RBC Distribution Width 13.8 % (11.7-14.6); White Blood Cell Count 15.81 k/cumm (4.4-10.8)
[2017-11-27] MEDS: Lisinopril 10 MG TAB PO (08:35)
[2017-11-27] MEDS: Normal Saline Flush 10 ML SYR IVP ×3 (08:35→10:33)
[2017-11-27] MEDS: predniSONE 20 MG TAB 40 MG PO ×2 (08:35→19:50)
[2017-11-27] MEDS: glipiZIDE C.R. 5 MG TABCR PO ×2 (08:35→19:49)
[2017-11-27] MEDS: Rosuvastatin 10 MG TAB PO (08:35)
[2017-11-27] MEDS: Hydrochlorothiazide 25 MG TAB 50 MG PO (08:36)
[2017-11-27] MEDS: Aspirin 81 MG CHEW PO (08:36)
[2017-11-27] MEDS: Magnesium Oxide 400 MG TAB PO ×2 (08:36→19:49)
[2017-11-27] MEDS: Insulin Aspart 300 UNITS/3 ML PEN SC ×3 (08:36→17:45)
--- NOTE | 2017-11-27 08:47 | PDOC.CMDIS ---
LACE Index Scoring Tool - Questions: Length of Stay (in days): 4 - 6 Acuity (Admit via E.D.?): Yes Comorbidities: Chronic Pulmonary Disease E.D. Visits: 1 - Answers: Total Score: 10 Risk of Readmission: High Risk Care Management Discharge Reason for Hospitalization: COPD Discharge Plan: Shira has shown improvement and discharge to home when ready per MD. RT and MD will determine need for and coordination of home O2. Shira will follow up with her PCP and plan of care and transport via private vehicle with family. Patient/Family Education Needs: Review discharge instructions, discuss Ask Me Three. Services Needed at Discharge: Oxygen Therapy
[2017-11-27 08:56] LABS: Anion Gap 0.2 mmol/L (3-11); BUN 36 mg/dL (7-18); CO2 39.8 mmol/L (21.0-32.0); Calcium 9.3 mg/dL (8.5-10.1); Chloride 95 mmol/L (98-107); Estimated GFR 49.85 (mL/min/1.73m2); Glucose 250 mg/dL (70-100); Potassium 4.4 mmol/L (3.5-5.1); Sodium 135 mmol/L (136-145)
[2017-11-27] MEDS: Furosemide 20 MG/2 ML VIAL IVP (10:33)
--- NOTE | 2017-11-27 11:58 | CMPROGNOTE_ITS ---
Care Management Progress Note S/O: Shira was sitting up on the side of the bed, O2 nasal cannula on when CM met with her. Shira's daughter and grand-daughter were also in the room. Shira reported the nicotrol inhaler provided needed relief and states she continues to feel improvement. She is wanting a shower this morning and feels she will have more information on how close to her baseline she is after she has exerted herself by showering and breathing in the hot steam. Shira shares no other concerns at this time. A: 67 year old female admitted to [facility] 11/24/17 for COPD Exacerbation P: Shira will return home when ready per MD. CM reviewed smoking cessation support and community resources. Shira will transport via private vehicle with her family.
--- NOTE | 2017-11-27 12:24 | PGE_ITS ---
Date of service: 11/27/17 Time of Service: 12:19 Assessment and Plan (1) COPD with acute exacerbation: Current visit: Yes Status: Acute Symptoms improving. White blood cell count has improved today. Continue antibiotics, updrafts and supplemental oxygen. She has transition to oral prednisone which she will need to taper off. Will likely need home oxygen upon discharge. She was noted to have some right ventricular dysfunction on echocardiogram, plan to give low dose IV lasix, reassess BNP in the morning. CBC and BMP in the am. (2) Tobacco abuse: Current visit: Yes Status: Acute Smoking cessation discussed. She is using a nicotrol inhaler which is helping her cravings. Continue nicotine replacement. (3) Depression: Current visit: Yes Status: Chronic She normally takes lexapro for depression, however, due to concerns of potential QTc prolongation with Lexapro combined with Levaquin, her lexapro has been held. Plan to reinitiate Lexapro after 2 more days of antibiotic therapy. Subjective Interval history since last seen: Shira is a 67 year old female, current smoker , who is being treated for COPD exacerbation. She was also noted to have CHF versus PNA on chest x-ray. She underwent an echocardiogram yesterday, which revealed an LVEF of 60-65%, LV Wall thickness was increased in a pattern of mild LVH. Systolic function was normal, there were no regional wall motion abnormalities. Ventricular septum showed diastolic and systolic flattening, consistent with RV volume and RV pressure overload. Aortic valve had moderate focal calcification involving the noncoronary cusp. Left atrium was moderately to severely dilated. Right ventricle cavity size was mildly dilated, wall thickness was mildly increased, systolic function was mildly reduced. Atrial septum had increased thickness, consistent with lipomatous hypertrophy. Pulmonary systolic pressure was moderately increased at 53 mmHg. She is being treated with Levaquin, updrafts and supplemental oxygen. She was previously on IV steroids and has transitioned to oral prednisone, which she will taper off. Her white blood cell count has improved today. Her oxygen remains in the low 90s on 3 liters via nasal cannula. She reports feeling better today. She does report mild shortness of breath especially on ambulation, she denies wheezing. She reports that she is coughing more today, she continues to produce clear sputum. She denies chest pain/ pressure, palpitations, no nausea, vomiting, diarrhea or abdominal discomfort. She is tolerating her diet. She denies edema. Her nicotine cravings have improved with nicotrol inhaler. Her blood sugars have improved. Exam Const General: cooperative, comfortable (sitting at edge of bed, eating lunch, conversing with family.) and no acute distress Orientation: alert and oriented x3 [facility] Head: normal to inspection, normocephalic and atraumatic Mouth: moist mucous membranes Neck Neck: normal visual inspection, full ROM and supple Resp Effort & Inspection: normal respiratory effort (respirations even and unlabored , O2 via nasal cannula.) and cough (producing clear sputum.) Auscultation: diminished lung sounds (Lung sounds diminished bilaterally. Wheezes noted bilateral upper bell anteriorly. ) and no wheezes Cardio Rate: regular rate and not tachycardic Heart Sounds: S1 normal, S2 normal and no murmurs GI Palpation: soft (obese.) and nontender Auscultation: normal bowel sounds Skin General skin exam: no rashes or lesions noted Neuro General: alert, awake, oriented x3 and moves all extremities Speech: speech normal Extrem General: full ROM, no clubbing, cyanosis or edema (venous statsis changes noted to bilateral lower extremities. Mild edmea to bilateral lower extremities.) and no calf tenderness bilaterally Psych Mental Status: mental status grossly normal Speech and Movement: speech and movement normal Mood: congruent mood Affect: normal affect Attitude: cooperative Objective Objective Clinical Data: Abnormal lab results 11/27/17 11/27/17 Range/Units 07:08 07:10 WBC 15.81 H (4.4-10.8) k/cumm MCV 101.6 H (80-95) fL MCH 33.5 H (27.0-33.0) pg Sodium 135 L (136-145) mmol/L Chloride 95 L (98-107) mmol/L Carbon Dioxide 39.8 H (21.0-32.0) mmol/L Anion Gap 0.2 L (3-11) mmol/L BUN 36 H (7-18) mg/dL Creatinine 1.10 H (0.55-1.02) mg/dL Glucose 250 H (70-100) mg/dL Vital Signs Temp 36.2 C L 11/27/17 07:40 Pulse 86 11/27/17 07:40 Resp 20 11/27/17 07:40 BP 119/65 11/27/17 07:40 Pulse Ox 86 L 11/27/17 07:40 Intake & Output 11/26/17 11/27/17 11/27/17 23:59 11:59 23:59 Intake Total 780 / 780 130 / 130 Balance 780 / 780 130 / 130 Intake: IV 10 Oral 780 / 780 120 / 120 Other: Urine Appearance Clear Comment mixed w stool and paper. can't get a volume Stool Size Small Stool Characteristics Formed Hard Brown Voiding Methods Toilet Toilet Laboratory Results WBC 15.81 k/cumm (4.4-10.8) H 11/27/17 07:08 RBC 4.51 m/cumm (4.00-5.20) 11/27/17 07:08 Hgb 15.1 g/dL (12.0-15.5) 11/27/17 07:08 Hct 45.8 % (36.0-46.0) 11/27/17 07:08 MCV 101.6 fL (80-95) H 11/27/17 07:08 MCH 33.5 pg (27.0-33.0) H 11/27/17 07:08 MCHC 33.0 g/dL (32.0-36.0) 11/27/17 07:08 RDW 13.8 % (11.7-14.6) 11/27/17 07:08 Plt Count 345 x1000/uL (130-400) 11/27/17 07:08 MPV 8.1 fL (8.0-11.0) 11/27/17 07:08 Immature Gran % 0.5 11/25/17 08:45 Neutrophils % 92.4 11/25/17 08:45 Lymphocytes % 4.4 11/25/17 08:45 Monocytes % 2.6 11/25/17 08:45 Eosinophils % 0.0 11/25/17 08:45 Basophils % 0.1 11/25/17 08:45 Absolute Neutrophils 11.19 k/cumm (1.2-6.7) H 11/25/17 08:45 Absolute Lymphocytes 0.53 k/cumm (1.2-3.4) L 11/25/17 08:45 Absolute Monocytes 0.31 k/cumm (0.11-0.7) 09/05/18 08:45 Absolute Eosinophils 0.00 k/cumm (0.0-0.7) 11/25/17 08:45 Absolute Basophils 0.01 k/cumm (0.0-0.2) 11/25/17 08:45 Sodium 135 mmol/L (136-145) L 11/27/17 07:10 Potassium 4.4 mmol/L (3.5-5.1) 11/27/17 07:10 Chloride 95 mmol/L (98-107) L 11/27/17 07:10 Carbon Dioxide 39.8 mmol/L (21.0-32.0) H 11/27/17 07:10 Anion Gap 0.2 mmol/L (3-11) L 11/27/17 07:10 BUN 36 mg/dL (7-18) H 11/27/17 07:10 Creatinine 1.10 mg/dL (0.55-1.02) H 11/27/17 07:10 Estimated GFR/1.73 m2 49.85 (mL/min/1.73m2) 11/27/17 07:10 Glucose 250 mg/dL (70-100) H 11/27/17 07:10 Calcium 9.3 mg/dL (8.5-10.1) 11/27/17 07:10 Magnesium 2.1 mg/dL (1.8-2.4) 11/26/17 06:20 Total Bilirubin 0.5 mg/dL (0.2-1.0) 11/24/17 18:35 AST 15 U/L (15-37) 11/24/17 18:35 ALT 16 U/L (12-78) 11/24/17 18:35 Alkaline Phosphatase 105 U/L (46-116) 11/24/17 18:35 Troponin I < 0.02 ng/mL (0.00-0.06) 11/24/17 18:35 NT-Pro-B Natriuret Pep 1023 pg/mL (-299) H 11/24/17 18:35 Total Protein 8.0 g/dL (6.4-8.2) 11/24/17 18:35 Albumin 2.9 g/dL (3.4-5.0) L 11/24/17 18:35
[2017-11-27] MEDS: Enoxaparin 40 MG/0.4 ML SYR SC (15:29)
[2017-11-28] VITALS (11 sets, daily range): BP systolic 95–121; BP diastolic 67–80; PULSE 81–98; RESP 4–20; TEMP 35.9–36.7; O2SAT 88–96
[2017-11-28] MEDS: Albuterol/Ipratropium 3 ML UPD VIAL UPD ×4 (05:22→23:41)
[2017-11-28 07:15] LABS: HGB 14.7 g/dL (12.0-15.5); Mean Corpuscular Hemoglobin 32.7 pg (27.0-33.0); Mean Corpuscular Volume 102.4 fL (80-95); Mean Platelet Volume 8.1 fL (8.0-11.0); Platelet Count 291 x1000/uL (130-400); RBC 4.49 m/cumm (4.00-5.20); RBC Distribution Width 13.6 % (11.7-14.6); White Blood Cell Count 13.66 k/cumm (4.4-10.8)
[2017-11-28 07:42] LABS: Anion Gap 1.9 mmol/L (3-11); BUN 31 mg/dL (7-18); CO2 40.1 mmol/L (21.0-32.0); CREATININE 0.96 mg/dL (0.55-1.02); Chloride 93 mmol/L (98-107); Estimated GFR 58.33 (mL/min/1.73m2); Glucose 220 mg/dL (70-100); NT-proBNP 176 pg/mL; Potassium 4.2 mmol/L (3.5-5.1); Sodium 135 mmol/L (136-145)
[2017-11-28] MEDS: Insulin Aspart 300 UNITS/3 ML PEN SC ×3 (08:48→17:01)
[2017-11-28] MEDS: Rosuvastatin 10 MG TAB PO (09:02)
[2017-11-28] MEDS: Lisinopril 10 MG TAB PO (09:02)
[2017-11-28] MEDS: Aspirin 81 MG CHEW PO (09:02)
[2017-11-28] MEDS: glipiZIDE C.R. 5 MG TABCR PO ×2 (09:02→20:06)
[2017-11-28] MEDS: Magnesium Oxide 400 MG TAB PO ×2 (09:02→20:06)
[2017-11-28] MEDS: Hydrochlorothiazide 25 MG TAB 50 MG PO (09:02)
[2017-11-28] MEDS: predniSONE 20 MG TAB 40 MG PO ×2 (09:02→20:06)
--- NOTE | 2017-11-28 09:43 | PDOC.CMPRO ---
- If Service Date Differs Date of service: 11/28/17 Time of Service: 09:43 Care Management Progress Note S/O: CM attempted to meet with patient at the bedside she is resting at this time. CM did speak with spouse and daughter at the bedside pt and family are aware of the discharge plan. Anticipate she will be discharged home on Thursday with home oxygen. RT will set up the home oxygen and pt will be discharged with a tank for transportation home. A: 67 year old female admitted to [facility] 11/24/17 for COPD Exacerbation P: Shira will return home when ready per MD. She will have new oxygen, CM reviewed with RT they will meet with Shira to identify DME and set up equipment. CM reviewed smoking cessation support and community resources. Shira will transport via private vehicle with her family.
--- NOTE | 2017-11-28 09:46 | CMPROGNOTE_ITS ---
- If Service Date Differs Date of service: 11/28/17 Time of Service: 09:43 Care Management Progress Note S/O: CM attempted to meet with patient at the bedside she is resting at this time. CM did speak with spouse and daughter at the bedside pt and family are aware of the discharge plan. Anticipate she will be discharged home on Thursday with home oxygen. RT will set up the home oxygen and pt will be discharged with a tank for transportation home. A: 67 year old female admitted to [facility] 11/24/17 for COPD Exacerbation P: Shira will return home when ready per MD. She will have new oxygen, CM reviewed with RT they will meet with Shira to identify DME and set up equipment. CM reviewed smoking cessation support and community resources. Shira will transport via private vehicle with her family.
--- NOTE | 2017-11-28 11:42 | W.PM.PROGNOT ---
Assessment and Plan (1) COPD with acute exacerbation: Current visit: Yes Status: Acute Symptoms improving. White blood cell count has improved again today. Continue antibiotics, updrafts and supplemental oxygen. She has transition to oral prednisone which she will need to taper off. Will likely need home oxygen upon discharge. She was noted to have some right ventricular dysfunction on echocardiogram, and has received 2 doses of low dose IV lasix, with subsequent normalization of BNP. Will increase Levaquin dosing today as renal function appears intact. (2) Tobacco abuse: Current visit: Yes Status: Acute Smoking cessation previously discussed. She is using a nicotrol inhaler which is helping her cravings. Continue nicotine replacement. (3) Depression: Current visit: Yes Status: Chronic SSRI on hold due to concerns for potential QTc prolongation with with Fluoroquinolone therapy. (4) Hypertension: Current visit: Yes Status: Chronic Currently on thiazide diuretic and DARCI-I. Continue to monitor bp and renal function - both currently stable and reasonable. (5) Diabetes mellitus: Current visit: Yes Status: Chronic Continue home regimen of Glipizide. Also on sliding scale coverage and ADA diet. (6) DVT prophylaxis: Current visit: Yes Status: Acute SC Lovenox. Subjective Interval history since last seen: 67 year old female, current smoker with a history of COPD, admitted from [facility] ED on 11/24 with an acute exacerbation of COPD. Patient was initially noted to have CHF versus PNA on chest x-ray. She underwent an ECHO which revealed an LVEF of 60-65%, but with evidence consistent with RV volume and RV pressure overload along with PHTN. She is currently on Levaquin, duonebs and supplemental oxygen - she is not O2 dependent at baseline. She was previously on IV steroids and has been transitioned to oral prednisone. Her white blood cell count is elevated but continues to improve. She reports feeling improved overall. No overnight events reported. She remains afebrile. Exam Const General: cooperative and no acute distress Orientation: alert, awake and oriented x3 Neck Neck: supple Resp Effort & Inspection: normal respiratory effort (respirations even and unlabored, O2 via nasal cannula.), cough (producing clear sputum.) and other (Diminished. Questions fine rales at the base) Auscultation: diminished lung sounds (Lung sounds diminished bilaterally. Wheezes noted bilateral upper bell anteriorly. ) Cardio Rate: regular rate and not tachycardic Heart Sounds: S1 normal, S2 normal and no murmurs GI Palpation: soft (obese.) and nontender Auscultation: normal bowel sounds Neuro General: alert, awake, oriented x3 and moves all extremities Speech: speech normal Extrem General: full ROM and no clubbing, cyanosis or edema (venous statsis changes noted to bilateral lower extremities. Mild edmea to bilateral lower extremities.) Psych Mental Status: mental status grossly normal Speech and Movement: speech and movement normal Affect: normal affect Attitude: cooperative Objective Objective Clinical Data: Abnormal lab results 11/28/17 11/28/17 Range/Units 06:35 06:35 WBC 13.66 H (4.4-10.8) k/cumm MCV 102.4 H (80-95) fL Sodium 135 L (136-145) mmol/L Chloride 93 L (98-107) mmol/L Carbon Dioxide 40.1 H (21.0-32.0) mmol/L Anion Gap 1.9 L (3-11) mmol/L BUN 31 H (7-18) mg/dL Glucose 220 H (70-100) mg/dL Vital Signs Temp 36.5 C 11/28/17 08:10 Pulse 81 11/28/17 08:10 Resp 20 11/28/17 08:10 BP 121/79 11/28/17 08:10 Pulse Ox 96 11/28/17 08:10 Intake & Output 11/27/17 11/27/17 11/28/17 11:59 23:59 11:59 Intake Total 130 / 130 490 / 490 370 / 370 Balance 130 / 130 490 / 490 370 / 370 Intake: IV Oral 120 / 120 490 / 490 370 / 370 Other: Urine Color Yellow Urine Appearance Clear Urine Odor Normal Comment Void x1 in the toilet. Stool Size Small Stool Characteristics Formed Hard Brown Voiding Methods Incontinent Laboratory Results WBC 13.66 k/cumm (4.4-10.8) H 11/28/17 06:35 RBC 4.49 m/cumm (4.00-5.20) 11/28/17 06:35 Hgb 14.7 g/dL (12.0-15.5) 11/28/17 06:35 Hct 46.0 % (36.0-46.0) 11/28/17 06:35 MCV 102.4 fL (80-95) H 11/28/17 06:35 MCH 32.7 pg (27.0-33.0) 11/28/17 06:35 MCHC 32.0 g/dL (32.0-36.0) 11/28/17 06:35 RDW 13.6 % (11.7-14.6) 11/28/17 06:35 Plt Count 291 x1000/uL (130-400) 11/28/17 06:35 MPV 8.1 fL (8.0-11.0) 11/28/17 06:35 Immature Gran % 0.5 11/25/17 08:45 Neutrophils % 92.4 11/25/17 08:45 Lymphocytes % 4.4 11/25/17 08:45 Monocytes % 2.6 11/25/17 08:45 Eosinophils % 0.0 11/25/17 08:45 Basophils % 0.1 11/25/17 08:45 Absolute Neutrophils 11.19 k/cumm (1.2-6.7) H 11/25/17 08:45 Absolute Lymphocytes 0.53 k/cumm (1.2-3.4) L 11/25/17 08:45 Absolute Monocytes 0.31 k/cumm (0.11-0.7) 11/25/17 08:45 Absolute Eosinophils 0.00 k/cumm (0.0-0.7) 11/25/17 08:45 Absolute Basophils 0.01 k/cumm (0.0-0.2) 11/25/17 08:45 Sodium 135 mmol/L (136-145) L 11/28/17 06:35 Potassium 4.2 mmol/L (3.5-5.1) 11/28/17 06:35 Chloride 93 mmol/L (98-107) L 11/28/17 06:35 Carbon Dioxide 40.1 mmol/L (21.0-32.0) H 11/28/17 06:35 Anion Gap 1.9 mmol/L (3-11) L 11/28/17 06:35 BUN 31 mg/dL (7-18) H 11/28/17 06:35 Creatinine 0.96 mg/dL (0.55-1.02) 11/28/17 06:35 Estimated GFR/1.73 m2 58.33 (mL/min/1.73m2) 11/28/17 06:35 Glucose 220 mg/dL (70-100) H 11/28/17 06:35 Calcium 9.0 mg/dL (8.5-10.1) 11/28/17 06:35 Magnesium 2.1 mg/dL (1.8-2.4) 11/26/17 06:20 Total Bilirubin 0.5 mg/dL (0.2-1.0) 11/24/17 18:35 AST 15 U/L (15-37) 11/24/17 18:35 ALT 16 U/L (12-78) 11/24/17 18:35 Alkaline Phosphatase 105 U/L (46-116) 11/24/17 18:35 Troponin I < 0.02 ng/mL (0.00-0.06) 11/24/17 18:35 NT-Pro-B Natriuret Pep 176 pg/mL (-299) 11/28/17 06:35 Total Protein 8.0 g/dL (6.4-8.2) 11/24/17 18:35 Albumin 2.9 g/dL (3.4-5.0) L 11/24/17 18:35
--- NOTE | 2017-11-28 11:47 | PGE_ITS ---
Assessment and Plan (1) COPD with acute exacerbation: Current visit: Yes Status: Acute Symptoms improving. White blood cell count has improved again today. Continue antibiotics, updrafts and supplemental oxygen. She has transition to oral prednisone which she will need to taper off. Will likely need home oxygen upon discharge. She was noted to have some right ventricular dysfunction on echocardiogram, and has received 2 doses of low dose IV lasix, with subsequent normalization of BNP. Will increase Levaquin dosing today as renal function appears intact. (2) Tobacco abuse: Current visit: Yes Status: Acute Smoking cessation previously discussed. She is using a nicotrol inhaler which is helping her cravings. Continue nicotine replacement. (3) Depression: Current visit: Yes Status: Chronic SSRI on hold due to concerns for potential QTc prolongation with with Fluoroquinolone therapy. (4) Hypertension: Current visit: Yes Status: Chronic Currently on thiazide diuretic and DARCI-I. Continue to monitor bp and renal function - both currently stable and reasonable. (5) Diabetes mellitus: Current visit: Yes Status: Chronic Continue home regimen of Glipizide. Also on sliding scale coverage and ADA diet. (6) DVT prophylaxis: Current visit: Yes Status: Acute SC Lovenox. Subjective Interval history since last seen: 67 year old female, current smoker with a history of COPD, admitted from [facility] ED on 11/24 with an acute exacerbation of COPD. Patient was initially noted to have CHF versus PNA on chest x-ray. She underwent an ECHO which revealed an LVEF of 60-65%, but with evidence consistent with RV volume and RV pressure overload along with PHTN. She is currently on Levaquin, duonebs and supplemental oxygen - she is not O2 dependent at baseline. She was previously on IV steroids and has been transitioned to oral prednisone. Her white blood cell count is elevated but continues to improve. She reports feeling improved overall. No overnight events reported. She remains afebrile. Exam Const General: cooperative and no acute distress Orientation: alert, awake and oriented x3 Neck Neck: supple Resp Effort & Inspection: normal respiratory effort (respirations even and unlabored , O2 via nasal cannula.), cough (producing clear sputum.) and other ( Diminished. Questions fine rales at the base) Auscultation: diminished lung sounds (Lung sounds diminished bilaterally. Wheezes noted bilateral upper bell anteriorly. ) Cardio Rate: regular rate and not tachycardic Heart Sounds: S1 normal, S2 normal and no murmurs GI Palpation: soft (obese.) and nontender Auscultation: normal bowel sounds Neuro General: alert, awake, oriented x3 and moves all extremities Speech: speech normal Extrem General: full ROM and no clubbing, cyanosis or edema (venous statsis changes noted to bilateral lower extremities. Mild edmea to bilateral lower extremities. ) Psych Mental Status: mental status grossly normal Speech and Movement: speech and movement normal Affect: normal affect Attitude: cooperative Objective Objective Clinical Data: Abnormal lab results 11/28/17 11/28/17 Range/Units 06:35 06:35 WBC 13.66 H (4.4-10.8) k/cumm MCV 102.4 H (80-95) fL Sodium 135 L (136-145) mmol/L Chloride 93 L (98-107) mmol/L Carbon Dioxide 40.1 H (21.0-32.0) mmol/L Anion Gap 1.9 L (3-11) mmol/L BUN 31 H (7-18) mg/dL Glucose 220 H (70-100) mg/dL Vital Signs Temp 36.5 C 11/28/17 08:10 Pulse 81 11/28/17 08:10 Resp 20 11/28/17 08:10 BP 121/79 11/28/17 08:10 Pulse Ox 96 11/28/17 08:10 Intake & Output 11/27/17 11/27/17 11/28/17 11:59 23:59 11:59 Intake Total 130 / 130 490 / 490 370 / 370 Balance 130 / 130 490 / 490 370 / 370 Intake: IV Oral 120 / 120 490 / 490 370 / 370 Other: Urine Color Yellow Urine Appearance Clear Urine Odor Normal Comment Void x1 in the toilet. Stool Size Small Stool Characteristics Formed Hard Brown Voiding Methods Incontinent Laboratory Results WBC 13.66 k/cumm (4.4-10.8) H 11/28/17 06:35 RBC 4.49 m/cumm (4.00-5.20) 11/28/17 06:35 Hgb 14.7 g/dL (12.0-15.5) 11/28/17 06:35 Hct 46.0 % (36.0-46.0) 11/28/17 06:35 MCV 102.4 fL (80-95) H 11/28/17 06:35 MCH 32.7 pg (27.0-33.0) 11/28/17 06:35 MCHC 32.0 g/dL (32.0-36.0) 11/28/17 06:35 RDW 13.6 % (11.7-14.6) 11/28/17 06:35 Plt Count 291 x1000/uL (130-400) 11/28/17 06:35 MPV 8.1 fL (8.0-11.0) 11/28/17 06:35 Immature Gran % 0.5 11/25/17 08:45 Neutrophils % 92.4 11/25/17 08:45 Lymphocytes % 4.4 11/25/17 08:45 Monocytes % 2.6 11/25/17 08:45 Eosinophils % 0.0 11/25/17 08:45 Basophils % 0.1 11/25/17 08:45 Absolute Neutrophils 11.19 k/cumm (1.2-6.7) H 11/25/17 08:45 Absolute Lymphocytes 0.53 k/cumm (1.2-3.4) L 11/25/17 08:45 Absolute Monocytes 0.31 k/cumm (0.11-0.7) 11/25/17 08:45 Absolute Eosinophils 0.00 k/cumm (0.0-0.7) 11/25/17 08:45 Absolute Basophils 0.01 k/cumm (0.0-0.2) 11/25/17 08:45 Sodium 135 mmol/L (136-145) L 11/28/17 06:35 Potassium 4.2 mmol/L (3.5-5.1) 11/28/17 06:35 Chloride 93 mmol/L (98-107) L 11/28/17 06:35 Carbon Dioxide 40.1 mmol/L (21.0-32.0) H 11/28/17 06:35 Anion Gap 1.9 mmol/L (3-11) L 11/28/17 06:35 BUN 31 mg/dL (7-18) H 11/28/17 06:35 Creatinine 0.96 mg/dL (0.55-1.02) 11/28/17 06:35 Estimated GFR/1.73 m2 58.33 (mL/min/1.73m2) 11/28/17 06:35 Glucose 220 mg/dL (70-100) H 11/28/17 06:35 Calcium 9.0 mg/dL (8.5-10.1) 11/28/17 06:35 Magnesium 2.1 mg/dL (1.8-2.4) 11/26/17 06:20 Total Bilirubin 0.5 mg/dL (0.2-1.0) 11/24/17 18:35 AST 15 U/L (15-37) 11/24/17 18:35 ALT 16 U/L (12-78) 11/24/17 18:35 Alkaline Phosphatase 105 U/L (46-116) 11/24/17 18:35 Troponin I < 0.02 ng/mL (0.00-0.06) 11/24/17 18:35 NT-Pro-B Natriuret Pep 176 pg/mL (-299) 11/28/17 06:35 Total Protein 8.0 g/dL (6.4-8.2) 11/24/17 18:35 Albumin 2.9 g/dL (3.4-5.0) L 11/24/17 18:35
[2017-11-28] MEDS: Enoxaparin 40 MG/0.4 ML SYR SC (16:32)
[2017-11-28 17:21] LABS: Glucose 392 mg/dL (70-100)
[2017-11-29] VITALS (7 sets, daily range): BP systolic 109–121; BP diastolic 59–75; PULSE 84–90; RESP 2–19; TEMP 35.4–36.9; O2SAT 85–97
[2017-11-29] MEDS: Albuterol/Ipratropium 3 ML UPD VIAL UPD ×2 (06:10→17:58)
[2017-11-29 07:05] LABS: HCT 43.2 % (36.0-46.0); HGB 14.7 g/dL (12.0-15.5); Mean Corpuscular Hemoglobin 33.9 pg (27.0-33.0); Mean Corpuscular Volume 99.5 fL (80-95); Mean Platelet Volume 7.9 fL (8.0-11.0); Platelet Count 309 x1000/uL (130-400); RBC 4.34 m/cumm (4.00-5.20); RBC Distribution Width 13.7 % (11.7-14.6); White Blood Cell Count 15.66 k/cumm (4.4-10.8)
[2017-11-29 07:21] LABS: Anion Gap 0.2 mmol/L (3-11); BUN 32 mg/dL (7-18); CO2 40.8 mmol/L (21.0-32.0); CREATININE 1.05 mg/dL (0.55-1.02); Calcium 8.9 mg/dL (8.5-10.1); Chloride 92 mmol/L (98-107); Glucose 256 mg/dL (70-100); Potassium 4.7 mmol/L (3.5-5.1); Sodium 133 mmol/L (136-145)
[2017-11-29] MEDS: Magnesium Oxide 400 MG TAB PO ×2 (08:27→20:06)
[2017-11-29] MEDS: Rosuvastatin 10 MG TAB PO (08:28)
[2017-11-29] MEDS: predniSONE 20 MG TAB 40 MG PO ×2 (08:28→20:05)
[2017-11-29] MEDS: Aspirin 81 MG CHEW PO (08:28)
[2017-11-29] MEDS: glipiZIDE C.R. 5 MG TABCR PO ×2 (08:28→20:05)
[2017-11-29] MEDS: Hydrochlorothiazide 25 MG TAB 50 MG PO (08:28)
[2017-11-29] MEDS: Lisinopril 10 MG TAB PO (08:28)
[2017-11-29] MEDS: Insulin Aspart 300 UNITS/3 ML PEN SC ×3 (08:28→17:29)
[2017-11-29 11:57] LABS: HCO3 43 mmol/L (22-28); pH 7.44 (7.35-7.45); pO2 64 mmHg (83-108); sO2 92 % (94-98); tCO2 38 mmol/L (22-29)
[2017-11-29 11:59] LABS: FIO2L 3 L; Site Right Radial; pCO2 63 mmHg (34-47)
--- NOTE | 2017-11-29 14:39 | PDOC.CMPRO ---
- If Service Date Differs Date of service: 11/29/17 Time of Service: 14:39 Care Management Progress Note S/O: Shira is sitting up in the room she is visiting with family. She did have an ABG, today related to her rising CO2, Shira's blood gas showed an elevated CO2. She will be discharged home on Thursday with home oxygen through [facility]. RT has set up the home oxygen and equipment. Shira will be discharged with a tank for transportation home. A: 67 year old female admitted to [facility] 11/24/17 for COPD Exacerbation P: Shira will return home when ready per MD. [facility] Pt [facility]. CM reviewed and confirmed with RT. CM reviewed smoking cessation support and community resources. Shira will transport via private vehicle with her family.
--- NOTE | 2017-11-29 14:43 | CMPROGNOTE_ITS ---
- If Service Date Differs Date of service: 11/29/17 Time of Service: 14:39 Care Management Progress Note S/O: Shira is sitting up in the room she is visiting with family. She did have an ABG, today related to her rising CO2, Shira's blood gas showed an elevated CO2. She will be discharged home on Thursday with home oxygen through [facility]. RT has set up the home oxygen and equipment. Shira will be discharged with a tank for transportation home. A: 67 year old female admitted to [facility] 11/24/17 for COPD Exacerbation P: Shira will return home when ready per MD. [facility]. CM reviewed and confirmed with RT. CM reviewed smoking cessation support and community resources. Shira will transport via private vehicle with her family.
--- NOTE | 2017-11-29 15:06 | PGE_ITS ---
Date of service: 11/29/17 Time of Service: 15:05 Assessment and Plan (1) COPD with acute exacerbation: Current visit: Yes Status: Acute Symptoms improving. White blood cell count remains elevated, however this is likely due to prednisone taper. Continue antibiotics, updrafts and supplemental oxygen. Will send home on long prednisone taper. Walk test performed today with respiratory therapy and she does qualify for home O2, currently requiring 4 L with ambulation. (2) Tobacco abuse: Current visit: Yes Status: Acute Currently receiving nicotine replacement, however admits that she has no intention of complete tobacco cessation and plans to smoke upon discharge. We had a violeta discussion regarding her lung disease, new oxygen requirement and tobacco abuse. Despite her understanding that her nicotine addiction will likely shorten her life she still has no plans on quitting. (3) Depression: Current visit: Yes Status: Chronic SSRI currently being held due to concerns regarding QT prolongation while on a fluoroquinolone. This should be resumed as soon as possible as she appeared quite anxious, depressed and was tearful throughout our meeting today. (4) Hypertension: Current visit: Yes Status: Chronic Currently on thiazide diuretic and DARCI-I. Continue to monitor bp and renal function - both currently stable and reasonable. (5) Diabetes mellitus: Current visit: Yes Status: Chronic Continue home regimen of Glipizide. Also on sliding scale coverage and ADA diet. (6) DVT prophylaxis: Current visit: Yes Status: Acute SC Lovenox. Subjective Patient reports: no new complaints Interval history since last seen: Shira is a 67-year-old woman who is currently being treated for acute exacerbation of COPD. On imaging was noted to have CHF versus possible pneumonia. Echocardiogram showed LVEF 60-65% with findings consistent with RV volume and pressure overload along with pulmonary hypertension. Continues on Levaquin, prednisone, duo nebs and supplemental oxygen which is new for her. Is requiring 2-4 L via nasal cannula depending on activity. Her blood sugars remain elevated likely secondary to prednisone use. White blood cell count is elevated but stable. She has remained afebrile. Does admit to increased hunger and wanting to snack frequently. Also reports anxiety associated with tobacco cessation. Exam Narrative Exam Narrative: General: 67yo female. Morbidly obese. Well developed and well nourished. No acute distress. A/Ox3. Pleasant and cooperative , anxious and tearful at times. HEENT: Normocephalic, Atraumatic. Conjunctiva clear, sclera non-icteric. PERRL. EOMI. Moist mucous membranes, oropharynx clear. Neck supple, no JVD, thyromegaly or lymphadenopathy. Cardiovascular: Regular rate and rhythm, S1S2, no S3 or S4. No murmur, rub, gallop. Respiratory: Chest expansion symmetrical, respirations unlabored. Lungs clear to auscultation with scattered expiratory wheezing and overall diminished breath sounds. GI: Abdomen round, soft, non-tender to palpation. Normoactive bowel sounds in all 4 quadrants. No hepatosplenomegaly or prominent masses, although difficult to assess given body habitus. : deferred Extremities: Lower extremities without deformity or edema Neurological: non-focal. CN 2-12 grossly intact. Psychiatric: pleasant and cooperative. Speech clear and articulate. Anxious and tearful Objective Objective Clinical Data: Abnormal lab results 11/28/17 11/29/17 11/29/17 Range/Units 16:47 06:35 06:35 WBC 15.66 H (4.4-10.8) k/cumm MCV 99.5 H (80-95) fL MCH 33.9 H (27.0-33.0) pg MPV 7.9 L (8.0-11.0) fL pCO2 (34-47) mmHg pO2 (83-108) mmHg O2 Saturation (94-98) % ABG HCO3 (22-28) mmol/L ABG Total CO2 (22-29) mmol/L Sodium 133 L (136-145) mmol/L Chloride 92 L (98-107) mmol/L Carbon Dioxide 40.8 H (21.0-32.0) mmol/L Anion Gap 0.2 L (3-11) mmol/L BUN 32 H (7-18) mg/dL Creatinine 1.05 H (0.55-1.02) mg/dL Glucose 392 H D 256 H D (70-100) mg/dL 11/29/17 Range/Units 11:45 WBC (4.4-10.8) k/cumm MCV (80-95) fL MCH (27.0-33.0) pg MPV (8.0-11.0) fL pCO2 63 H* (34-47) mmHg pO2 64 L (83-108) mmHg O2 Saturation 92 L (94-98) % ABG HCO3 43 H (22-28) mmol/L ABG Total CO2 38 H (22-29) mmol/L Sodium (136-145) mmol/L Chloride (98-107) mmol/L Carbon Dioxide (21.0-32.0) mmol/L Anion Gap (3-11) mmol/L BUN (7-18) mg/dL Creatinine (0.55-1.02) mg/dL Glucose (70-100) mg/dL Vital Signs Temp 36.2 C L 11/29/17 07:20 Pulse 86 11/29/17 07:20 Resp 19 11/29/17 07:20 BP 121/59 L 11/29/17 07:20 Pulse Ox 94 L 11/29/17 07:20 Intake & Output 11/28/17 11/29/17 11/29/17 23:59 11:59 23:59 Intake Total 1320 / 1320 640 / 640 480 / 480 Balance 1320 / 1320 640 / 640 480 / 480 Weight 120.3 kg Intake: Oral 1320 / 1320 640 / 640 480 / 480 Other: Comment voiding at toni indep void x 2 during noc Stool Size Large Stool Characteristics Soft Formed Brown Voiding Methods Toilet Toilet Toilet Incontinent Laboratory Results WBC 15.66 k/cumm (4.4-10.8) H 11/29/17 06:35 RBC 4.34 m/cumm (4.00-5.20) 11/29/17 06:35 Hgb 14.7 g/dL (12.0-15.5) 11/29/17 06:35 Hct 43.2 % (36.0-46.0) 11/29/17 06:35 MCV 99.5 fL (80-95) H 11/29/17 06:35 MCH 33.9 pg (27.0-33.0) H 11/29/17 06:35 MCHC 34.0 g/dL (32.0-36.0) 11/29/17 06:35 RDW 13.7 % (11.7-14.6) 11/29/17 06:35 Plt Count 309 x1000/uL (130-400) 11/29/17 06:35 MPV 7.9 fL (8.0-11.0) L 11/29/17 06:35 Immature Gran % 0.5 11/25/17 08:45 Neutrophils % 92.4 11/25/17 08:45 Lymphocytes % 4.4 11/25/17 08:45 Monocytes % 2.6 11/25/17 08:45 Eosinophils % 0.0 11/25/17 08:45 Basophils % 0.1 11/25/17 08:45 Absolute Neutrophils 11.19 k/cumm (1.2-6.7) H 11/25/17 08:45 Absolute Lymphocytes 0.53 k/cumm (1.2-3.4) L 11/25/17 08:45 Absolute Monocytes 0.31 k/cumm (0.11-0.7) 11/25/17 08:45 Absolute Eosinophils 0.00 k/cumm (0.0-0.7) 11/25/17 08:45 Absolute Basophils 0.01 k/cumm (0.0-0.2) 11/25/17 08:45 Sample Site Right radial 11/29/17 11:45 pCO2 63 mmHg (34-47) H* 11/29/17 11:45 pO2 64 mmHg (83-108) L 11/29/17 11:45 O2 Saturation 92 % (94-98) L 11/29/17 11:45 ABG pH 7.44 (7.35-7.45) 11/29/17 11:45 ABG HCO3 43 mmol/L (22-28) H 11/29/17 11:45 ABG Total CO2 38 mmol/L (22-29) H 11/29/17 11:45 ABG Base Excess mmol/L (-3-3) 11/29/17 11:45 Oxygen Liter Flow 3 L 11/29/17 11:45 Sodium 133 mmol/L (136-145) L 11/29/17 06:35 Potassium 4.7 mmol/L (3.5-5.1) 11/29/17 06:35 Chloride 92 mmol/L (98-107) L 11/29/17 06:35 Carbon Dioxide 40.8 mmol/L (21.0-32.0) H 11/29/17 06:35 Anion Gap 0.2 mmol/L (3-11) L 11/29/17 06:35 BUN 32 mg/dL (7-18) H 11/29/17 06:35 Creatinine 1.05 mg/dL (0.55-1.02) H 11/29/17 06:35 Estimated GFR/1.73 m2 52.60 (mL/min/1.73m2) 11/29/17 06:35 Glucose 256 mg/dL (70-100) H D 11/29/17 06:35 Calcium 8.9 mg/dL (8.5-10.1) 11/29/17 06:35 Magnesium 2.1 mg/dL (1.8-2.4) 11/26/17 06:20 Total Bilirubin 0.5 mg/dL (0.2-1.0) 11/24/17 18:35 AST 15 U/L (15-37) 11/24/17 18:35 ALT 16 U/L (12-78) 11/24/17 18:35 Alkaline Phosphatase 105 U/L (46-116) 11/24/17 18:35 Troponin I < 0.02 ng/mL (0.00-0.06) 11/24/17 18:35 NT-Pro-B Natriuret Pep 176 pg/mL (-299) 11/28/17 06:35 Total Protein 8.0 g/dL (6.4-8.2) 11/24/17 18:35 Albumin 2.9 g/dL (3.4-5.0) L 11/24/17 18:35
[2017-11-29] MEDS: Enoxaparin 40 MG/0.4 ML SYR SC (17:30)
[2017-11-30 00:36] VITALS: PULSE 83; RESP 16; RESP 8; O2SAT 90
[2017-11-30] MEDS: Albuterol/Ipratropium 3 ML UPD VIAL UPD ×3 (00:36→11:34)
[2017-11-30 00:51] VITALS: PULSE 84; RESP 20; RESP 8; O2SAT 92
[2017-11-30 06:22] VITALS: PULSE 86; RESP 20; RESP 8; O2SAT 89
[2017-11-30 06:52] VITALS: PULSE 81; RESP 20; RESP 8; O2SAT 89
[2017-11-30 07:33] LABS: Anion Gap 1.4 mmol/L (3-11); BUN 35 mg/dL (7-18); CO2 38.6 mmol/L (21.0-32.0); CREATININE 1.14 mg/dL (0.55-1.02); Calcium 8.8 mg/dL (8.5-10.1); Chloride 94 mmol/L (98-107); Estimated GFR 47.84 (mL/min/1.73m2); Glucose 309 mg/dL (70-100); Potassium 4.7 mmol/L (3.5-5.1); Sodium 134 mmol/L (136-145)
[2017-11-30 07:35] LABS: HCT 46.1 % (36.0-46.0); Mean Corp. HGB Concentration 32.5 g/dL (32.0-36.0); Mean Corpuscular Volume 101.5 fL (80-95); Mean Platelet Volume 8.1 fL (8.0-11.0); Platelet Count 258 x1000/uL (130-400); RBC 4.54 m/cumm (4.00-5.20); RBC Distribution Width 13.4 % (11.7-14.6); White Blood Cell Count 14.38 k/cumm (4.4-10.8)
[2017-11-30 08:20] VITALS: BP 131/78; PULSE 89; RESP 18; TEMP 35.9; O2SAT 89
[2017-11-30] MEDS: Insulin Aspart 300 UNITS/3 ML PEN SC (08:20)
[2017-11-30] MEDS: Magnesium Oxide 400 MG TAB PO (08:26)
[2017-11-30] MEDS: Rosuvastatin 10 MG TAB PO (08:27)
[2017-11-30] MEDS: Lisinopril 10 MG TAB PO (08:27)
[2017-11-30] MEDS: Hydrochlorothiazide 25 MG TAB 50 MG PO (08:27)
[2017-11-30] MEDS: predniSONE 20 MG TAB PO (08:27)
[2017-11-30] MEDS: Aspirin 81 MG CHEW PO (08:27)
[2017-11-30] MEDS: glipiZIDE C.R. 5 MG TABCR PO (08:27)
[2017-11-30 09:10] VITALS: O2SAT 86
--- NOTE | 2017-11-30 10:07 | W.PM.DS.N ---
DS: Diagnosis Discharge Diagnosis (1) COPD with acute exacerbation: Status: Acute (2) Tobacco abuse: Status: Acute (3) Depression: Status: Chronic (4) Hypertension: Status: Chronic (5) Diabetes mellitus: Status: Chronic (6) DVT prophylaxis: Status: Acute Discharge Plan Disposition Patient Disposition: HOME Condition: Improving Discharge Details Reason For Visit: COPD Admit Date/Time: 11/24/17 20:16 Admit Provider: Guy Harmon Attending Provider: Guy Harmon Primary Care Provider: Joyce Reeves [facility] Course Hospital Course: Shira is a 67-year-old woman with past medical history significant for depression/anxiety, tobacco abuse, COPD who presented to the emergency department at on 11/25/2017 with complaints of increasing shortness of breath and a productive cough that has been ongoing for 4 days prior to admission. In the emergency department she was found to be hypoxemic with an SPO2 of 75%. She was given an updraft as well as Solu-Medrol, however continued to have an O2 requirement therefore was admitted to the hospitalist service for further management. Chest x-ray on admission was suggestive of CHF versus possible community-acquired pneumonia. She underwent an echocardiogram during her hospitalization which showed an LVEF of 60-65% with mild LVH but normal systolic function. There were no regional wall motion abnormalities. There was evidence of RV volume and RV pressure overload with findings suggestive of pulmonary hypertension. Left atrium was moderately to severely dilated. The right ventricle was mildly dilated and wall thickness was mildly increased. She was started on Levaquin and prednisone to treat her COPD exacerbation, however continued to require 2 L of oxygen via nasal cannula at rest and upwards of 6 L via nasal cannula cannula with ambulation. Despite this she began to show steady improvement from a respiratory standpoint. Yesterday she walked with respiratory therapy and only required 4 L via nasal cannula therefore qualifying for home O2. While she was on Levaquin her Lexapro was held to prevent QT prolongation. White blood cell count remains slightly elevated thought to be secondary to corticosteroid administration. Has good family support at home and does not wish to have home health Home Meds and New Rx's Prescriptions: New ipratropium-albuterol 0.5 mg-3 mg(2.5 mg base)/3 mL Solution For Nebulization 3 ml UPD Q6H PRN7 Days Qty: 0 RF: 0 prednisone 20 mg Tablet 20 mg PO BID 10 Days Qty: 0 RF: 0 nebulizers misc .ROUTE .MEDSUPPLY Qty: 1 RF: 0 Continue aspirin 81 mg Tablet,Chewable 81 mg PO DAILY RF: 0 naproxen 500 mg Tablet 500 mg PO BID PRNRF: 0 metformin 500 mg Tablet Extended Release 24 Hr 2 BID RF: 0 hydrochlorothiazide 50 mg Tablet 1 PO DAILY RF: 0 cyclobenzaprine 10 mg Tablet 1 tab PO TID PRN PRNRF: 0 omega-3 fatty acids 1,000 mg Capsule 1,000 mg PO DAILY RF: 0 hydrochlorothiazide 50 mg Tablet 50 mg PO DAILY RF: 0 glipizide 5 mg Tablet Extended Release 24hr 5 mg PO BID RF: 0 metformin 500 mg Tablet Extended Release 24 Hr 1,000 mg PO BID RF: 0 escitalopram oxalate [Lexapro] 20 mg Tablet 20 mg PO DAILY RF: 0 rosuvastatin [Crestor] 10 mg Tablet 10 mg PO DAILY RF: 0 cholecalciferol (vitamin D3) [Vitamin D3] 2,000 unit Capsule 2,000 unit PO DAILY RF: 0 cholecalciferol (vitamin D3) 1,000 unit Tablet 2 PO DAILY RF: 0 omega 8-uny-ohw-fish oil [Fish Oil] 1,000 mg (120 mg-180 mg) Capsule 1 PO DAILY RF: 0 lisinopril 10 mg Tablet 1 PO DAILY RF: 0 rosuvastatin [Crestor] 10 mg Tablet 1 PO DAILY RF: 0 cinnamon bark [Cinnamon] 500 mg Capsule 2 PO DAILY RF: 0 albuterol sulfate [ProAir HFA] 90 mcg/actuation Hfa Aerosol Inhaler 2 puff Inhalation Q6H PRN PRNRF: 0 glipizide [Glucotrol XL] 5 mg Tablet Extended Release 24hr 1 PO BID RF: 0 escitalopram oxalate [Lexapro] 20 mg Tablet 1 PO DAILY RF: 0 cyclobenzaprine 10 mg Tablet 1 PO TID PRN PRNRF: 0 naproxen 500 mg Tablet 1 PO BID PRN PRNRF: 0 aspirin [Aspir-81] 81 mg Tablet,Delayed Release (Dr/Ec) 1 PO DAILY RF: 0 Discharge Instructions Instructions: COPD (Chronic Obstructive Pulmonary Disease) (DC) Additional Instructions: Follow up with your PCP in 5-7 days Stand Alone Forms: Nursing Discharge Form Referrals: Joyce Reeves PA [Primary Care Provider] - 12/14/17 1:45 pm Activity:: Activity as Tolerated Equipment/Supplies:: at rest and 4L with ambulation Diet:: Diabetic diet Discharge Orders Discharge Orders: Discharge Order (Routine); Ordered 11/30/17 Ordered By: Sobia Farah Discharge Data Discharge Date/Time-TO BE ENTERED AT DEPARTURE: 11/30/17 12:05 Exam Narrative Exam Narrative: General: 67yo female. Well developed and well nourished. No acute distress. A/Ox3. Pleasant and cooperative. HEENT: Normocephalic, Atraumatic. Conjunctiva clear, sclera non-icteric. PERRL. EOMI. Moist mucous membranes, oropharynx clear. Neck supple, no JVD, thyromegaly or lymphadenopathy. Cardiovascular: Regular rate and rhythm, S1S2, no S3 or S4. No murmur, rub, gallop. Respiratory: Chest expansion symmetrical, respirations unlabored. Lungs with scattered expiratory wheezes. GI: Abdomen round, soft, non-tender to palpation. Normoactive bowel sounds in all 4 quadrants. No hepatosplenomegaly or prominent masses although difficult to assess given body habitus. : deferred Extremities: Lower extremities without deformity or edema Neurological: non-focal. CN 2-12 grossly intact. Psychiatric: pleasant and cooperative. Speech clear and articulate. Mood and affect normal although somewhat depressed/anxious. DS: Data Vitals/I&O Vitals and I&O: Vital Signs Temp 35.9 C L 11/30/17 08:20 Pulse 89 11/30/17 08:20 Resp 18 11/30/17 08:20 BP 131/78 11/30/17 08:20 Pulse Ox 86 L 11/30/17 09:10 Intake & Output 11/29/17 11/29/17 11/30/17 11:59 23:59 11:59 Intake Total 640 / 640 1210 / 1210 200 / 200 Balance 640 / 640 1210 / 1210 200 / 200 Weight 120.3 kg 119.8 kg Intake: Oral 640 / 640 1210 / 1210 200 / 200 Other: Comment void x 2 during noc Patient is OOB to toilet independently and denies any issues with this. She is removing hat from toilet - urine is not visualized at this time. void x 2 during noc Stool Size Small Stool Characteristics Soft Voiding Methods Toilet Toilet Toilet Labs on day of discharge: Labs from last 24 hours 11/30/17 11/30/17 11/29/17 07:10 07:10 11:45 WBC 14.38 H RBC 4.54 Hgb 15.0 Hct 46.1 H MCV 101.5 H MCH 33.0 MCHC 32.5 RDW 13.4 Plt Count 258 MPV 8.1 Sample Site Right radial pCO2 63 H* pO2 64 L O2 Saturation 92 L ABG pH 7.44 ABG HCO3 43 H ABG Total CO2 38 H ABG Base Excess Oxygen Liter Flow 3 Sodium 134 L Potassium 4.7 Chloride 94 L Carbon Dioxide 38.6 H Anion Gap 1.4 L BUN 35 H Creatinine 1.14 H Estimated GFR/1.73 m2 47.84 Glucose 309 H Calcium 8.8 Date of service: 11/30/17 Time of Service: 10:12
--- NOTE | 2017-11-30 10:14 | PDOC.CMDIS ---
LACE Index Scoring Tool - Questions: Length of Stay (in days): 4 - 6 Acuity (Admit via E.D.?): Yes Comorbidities: Chronic Pulmonary Disease E.D. Visits: 1 - Answers: Total Score: 10 Risk of Readmission: High Risk Care Management Discharge Reason for Hospitalization: COPD Discharge Plan: Shira will discharge to home when ready per MD. RT and MD will determine need for and coordination of home O2, and nebulizer machine. Shira will follow up with her PCP and plan of care and transport via private vehicle with family. Patient/Family Education Needs: Review discharge instructions, discuss Ask Me Three. Shira reports she does not feel she needs VNA services at this time and is confident in managing her own needs at home. She reports she will follow up with her community providers regarding questions with new O2. Services Needed at Discharge: Oxygen Therapy (O2 and Nebulizer)
== END 2017-11-30 12:05 | disposition home or self-care (01) | DRG 190 ==
LOC: ER 20:49 → MS 11-25 11:14
PROVIDERS: Nurse Practitioner; Admitting Provider General Practice; Emergency Provider Emergency Medicine; PCP Physician Assistant Medical; Visit Provider Internal Medicine
DX: J44.1 Chronic obstructive pulmonary disease with (acute) exacerbation (principal); F17.210 Nicotine dependence, cigarettes, uncomplicated; F32.9 Major depressive disorder, single episode, unspecified; I10 Essential (primary) hypertension; E11.9 Type 2 diabetes mellitus without complications; J18.9 Pneumonia, unspecified organism; I51.7 Cardiomegaly; Z79.84 Long term (current) use of oral hypoglycemic drugs; R09.02 Hypoxemia; J44.0 Chronic obstructive pulmonary disease with (acute) lower respiratory infection; I50.9 Heart failure, unspecified
CPT/HCPCS: 36415; 80048; 80053; 82805; 82947; 85027; 93005; 94618; 94640; 96374; 99222; 99232; 99233; 99239; 99285; J1650; 36600; 71046; 83735; 83880; 84484; 85025; 93010; 93306; J1941; J2930; J7512; J7613; J7620

== ENCOUNTER 2018-10-22 11:35 | Outpatient (CLI) | payer BC, SELFPAY ==
--- NOTE | 2018-10-22 13:40 | MERGE_ITS ---
*[facility]* *[facility]* [address] [place] [address] Date of study: 10/22/2018 Transthoracic Echocardiography M-mode, complete 2D, complete spectral Doppler, and color Doppler *STUDY CONCLUSIONS* Summary: 1. Left ventricle: The cavity size was normal. Wall thickness was increased increased in a pattern of mild to moderate LVH. Systolic function was normal. The estimated ejection fraction was 60-65%. Wall motion was normal; there were no regional wall motion abnormalities. Findings consistent with diastolic dysfunction. Doppler parameters are consistent with high ventricular filling pressure. 2. Aortic valve: Valve mobility was restricted. There was moderate stenosis. Peak velocity (S): 3m/sec. Mean gradient (S): 20.4mm Hg. Valve area (VTI): 1.2cm^2. 3. Left atrium: The atrium was mildly dilated. 4. Right ventricle: The cavity size was dilated. Wall thickness was normal. Systolic function was normal. *PATIENT PRESENTATION* Height: 162.6cm (64in ) S/D Pressure: 100 / 58 Weight: 136.1kg (299.4lb ) BSA: 2.56m^2 Test start time: 01:55 PM. Test stop time: 01:50 PM. PERFORMING Unknown PERFORMING [facility] CONSULTING Ayaz Burris ORDERING Ayaz Burris REFERRING Ayaz Burris [facility] TECH Bethanie Cid, (R)(CT), [facility] *PROCEDURE DATA* Procedure information: This study was interpreted by [facility]. Pertinent images and digital data are archived for permanent storage and are available for subsequent review. Comparison was made to the study of 11/25/2017. Study status: Routine. Transthoracic echocardiography. M-mode, complete 2D, complete spectral Doppler, and color Doppler. A Transthoracic Echocardiogram was performed. Scanning was performed from the parasternal, apical, subcostal, and suprasternal notch acoustic windows. Images were obtained using an [id number] cardiac ultrasound machine. Image quality was fair. Study completion: The patient tolerated the procedure well. There were no complications. History: PMH: Cardiac murmur r01.1. Hc of COPD. B/L edema. Murmur, obesity. *CARDIAC ANATOMY* Left ventricle: The cavity size was normal. Wall thickness was increased increased in a pattern of mild to moderate LVH. Systolic function was normal. The estimated ejection fraction was 60-65%. Wall motion was normal; there were no regional wall motion abnormalities. Findings consistent with diastolic dysfunction. Doppler parameters are consistent with high ventricular filling pressure. Aortic valve: Trileaflet; normal thickness, mildly calcified leaflets. Valve mobility was restricted. Doppler: There was moderate stenosis. There was no significant regurgitation. VTI ratio of LVOT to aortic valve: 0.38. Valve area (VTI): 1.2cm^2. Indexed valve area (VTI): 0.5cm^2/m^2. Peak velocity ratio of LVOT to aortic valve: 0.39. Valve area (Vmax): 1.3cm^2. Indexed valve area (Vmax): 0.5cm^2/m^2. Mean velocity ratio of LVOT to aortic valve: 0.39. Valve area (Vmean): 1.3cm^2. Indexed valve area (Vmean): 0.5cm^2/m^2. Mean gradient (S): 20.4mm Hg. Peak gradient (S): 35.8mm Hg. Aorta: Aortic root: The aortic root was normal in size. Ascending aorta: The ascending aorta was normal in size. Mitral valve: Structurally normal valve. Mobility was not restricted. Doppler: Transvalvular velocity was within the normal range. There was no evidence for stenosis. There was no significant regurgitation. Valve area by pressure half-time: 4.8cm^2. Indexed valve area by pressure half-time: 1.9cm^2/m^2. Peak gradient (D): 3.7mm Hg. Left atrium: The atrium was mildly dilated. Right ventricle: The cavity size was dilated. Wall thickness was normal. Systolic function was normal. Pulmonic valve: Doppler: Transvalvular velocity was within the normal range. There was no evidence for stenosis. There was no significant regurgitation. Tricuspid valve: Structurally normal valve. Doppler: Transvalvular velocity was within the normal range. There was no evidence for stenosis. There was trivial regurgitation. Pulmonary artery: Pulmonary systolic pressure was within the normal range. Right atrium: The atrium was normal in size. Pericardium: There was no pericardial effusion. Systemic veins: Inferior vena cava: Well visualized. The vessel was patent and normal in size. The respirophasic diameter changes were in the normal range (greater than or equal to 50%). Baseline ECG: Normal sinus rhythm. Measurements Left ventricle Value 11/25/2017 Reference LV ID, ED, PLAX 5.2 cm 4.7 3.5 - 6.0 LV ID, ES, PLAX 2.5 cm 3.2 2.1 - 4.0 LV PW thickness, ED, PLAX 1.1 cm 1.2 LV end-diastolic volume, 55 ml 64 1-p A2C LV ejection fraction, 1-p 76 % A2C LV end-diastolic volume, 59 ml 79 1-p A4C LV ejection fraction, 1-p 71 % 64 A4C LV e', lateral 0.065 m/sec 0.075 LV E/e', lateral 15 14 LV e', medial 0.067 m/sec 0.079 LV E/e', medial 15 13 LV e', average 0.066 m/sec 0.077 LV E/e', average 15 13 Ventricular septum Value 11/25/2017 Reference IVS thickness, ED, PLAX 1.5 cm 1.3 LVOT Value 11/25/2017 Reference LVOT ID, A-P 2.0 cm 2.1 LVOT area 3.3 cm^2 3.4 LVOT peak velocity, S 1.16 m/sec 1.44 LVOT mean velocity, S 0.83 m/sec 1.1 LVOT VTI, S 21.4 cm 25.2 LVOT peak gradient, S 5.4 mm Hg 8.3 LVOT mean gradient, S 3.1 mm Hg 5.3 Stroke volume (SV), LVOT 70 ml 86 DP Stroke index (SV/bsa), 27 ml/m^2 34 LVOT DP Aortic valve Value 11/25/2017 Reference Aortic valve peak 3 m/sec 2.4 velocity, S Aortic valve mean 2.1 m/sec 1.7 velocity, S Aortic valve VTI, S 57.0 cm 39.4 Aortic mean gradient, S 20.4 mm Hg 12.1 Aortic peak gradient, S 35.8 mm Hg 22.8 VTI ratio, LVOT/AV 0.38 0.64 Aortic valve area, VTI 1.2 cm^2 2.2 Velocity ratio, peak, 0.39 0.6 LVOT/AV Aortic valve area, peak 1.3 cm^2 2.1 velocity Velocity ratio, mean, 0.39 0.66 LVOT/AV Aortic valve area, mean 1.3 cm^2 2.3 velocity Aortic valve area/bsa, 0.5 cm^2/m^2 0.9 mean velocity Aorta Value 11/25/2017 Reference Aortic root ID, ED 2.7 cm 2.9 Ascending aorta ID, A-P, S 3.0 cm 2.6 Left atrium Value 11/25/2017 Reference LA ID, A-P, ES 4.1 cm 3.5 LA ID/bsa, A-P 1.6 cm/m^2 1.4 <=2.2 LA volume/bsa, ES, 1-p A4C 37 ml/m^2 43 LA/aortic root ratio 1.5 1.22 Mitral valve Value 11/25/2017 Reference Mitral E-wave peak 0.97 m/sec 1.03 velocity Mitral A-wave peak 0.96 m/sec 1.28 velocity Mitral deceleration time 160 ms 103 150 - 230 Mitral pressure half-time 46 ms 30 Mitral peak gradient, D 3.7 mm Hg 4.3 Mitral E/A ratio, peak 1.01 0.81 Mitral valve area, PHT, DP 4.8 cm^2 7.4 Tricuspid valve Value 11/25/2017 Reference Tricuspid regurg peak 3.2 m/sec 3.3 velocity Tricuspid peak RV-RA 40.8 mm Hg 42.9 gradient Right atrium Value 11/25/2017 Reference RA area, ES, A4C 15 cm^2 15.1 8.3 - 19.5 Legend: (L) and (H) rommel values outside specified reference range. I have personally reviewed the images and have reviewed and edited the reported findings. Electronically signed by Aaron Tucker 10/22/2018 16:48
== END 2018-10-22 11:55 ==
PROVIDERS: PCP Physician Assistant Medical; Visit Provider Specialist/Technologist Athletic Trainer
DX: R01.1 Cardiac murmur, unspecified (principal); R60.0 Localized edema; I50.1 Left ventricular failure, unspecified; I35.0 Nonrheumatic aortic (valve) stenosis; I51.7 Cardiomegaly; J44.9 Chronic obstructive pulmonary disease, unspecified
CPT/HCPCS: 93306

== ENCOUNTER 2019-07-25 11:49 | Outpatient (REF) | payer MEDICARE, SELFPAY ==
[2019-07-25 19:42] LABS: Iron 84 ug/dL (50-170)
[2019-07-25 20:05] LABS: Vitamin D 25 Total 46.9 ng/ml (30-100)
[2019-07-25 20:06] LABS: ALT 29 U/L (14-59); AST 18 U/L (15-37); Albumin 3.5 g/dL (3.4-5.0); Alkaline Phosphatase 84 U/L (46-116); Anion Gap 9.6 mmol/L (3-11); BUN 25 mg/dL (7-18); Bilirubin, Total 0.5 mg/dL (0.2-1.0); CO2 31.4 mmol/L (21.0-32.0); CREATININE 1.57 mg/dL (0.55-1.02); Calcium 8.8 mg/dL (8.5-10.1); Calculated LDL 84 mg/dL (<100); Chloride 97 mmol/L (98-107); Cholesterol 157 mg/dL (<200); Estimated GFR 32.86 (mL/min/1.73m2); Ferritin 147 ng/mL (8-252); Glucose 216 mg/dL (74-106); HDL Cholesterol 53 mg/dL (40-60); Potassium 3.9 mmol/L (3.5-5.1); Sodium 138 mmol/L (136-145); TSH (W/Ref FT4) 2.06 uIU/mL (0.36-3.74); Total Protein 6.7 g/dL (6.4-8.2); Triglyceride 104 mg/dL (<150)
[2019-07-25 22:28] LABS: Creatine Kinase 63 U/L (26-192)
== END 2019-07-25 12:09 ==
LOC: NCHCN 11:49
PROVIDERS: PCP Physician Assistant Medical; Visit Provider Nurse Practitioner Family
DX: I10 Essential (primary) hypertension (principal); E11.9 Type 2 diabetes mellitus without complications; E66.01 Morbid (severe) obesity due to excess calories; J44.9 Chronic obstructive pulmonary disease, unspecified; G47.33 Obstructive sleep apnea (adult) (pediatric)
CPT/HCPCS: 80053; 80061; 82306; 82550; 82728; 83540; 84443

== ENCOUNTER 2019-08-03 02:00 | Outpatient (CLI) | payer MEDICARE, SELFPAY ==
--- NOTE | 2019-08-03 | DI.MAMMO_ITS ---
EXAM: MAMMO SCREENING CLINICAL HISTORY: SCREENING, Z12.39 TECHNIQUE: Mammograms were interpreted according to the usual protocol including computer analysis w [employer] CAD system, tomosynthesis and C-view imaging. COMPARISON: FINDINGS: The breasts are of moderate density with fairly symmetrical distribution of fibroglandular tissue. N o dominant mass or clumped microcalcification is identified either breast. Current examination is co mpared with previous examinations including June 2017 and there has been no gross interval change in appearance comparison with previous studies. IMPRESSION: No specific evidence of malignancy at this time. Routine screening examinations are suggested at yea rly intervals in this age group according to the ACS ACR guidelines. BI-RADS Cat 1 - Negative: Breast Density - Category B - Scattered areas of fibroglandular density:
== END 2019-08-03 02:20 ==
PROVIDERS: PCP Nurse Practitioner Family; Visit Provider Nurse Practitioner Family
DX: Z12.31 Encounter for screening mammogram for malignant neoplasm of breast (principal)
CPT/HCPCS: 77063; 77067

== ENCOUNTER 2019-09-26 14:12 | Outpatient (REF) | payer MEDICARE, SELFPAY ==
[2019-09-26 20:16] LABS: Anion Gap 13.3 mmol/L (3-11); BUN 34 mg/dL (7-18); CO2 24.7 mmol/L (21.0-32.0); CREATININE 1.71 mg/dL (0.55-1.02); Calcium 9.3 mg/dL (8.5-10.1); Chloride 101 mmol/L (98-107); Estimated GFR 29.78 (mL/min/1.73m2); Glucose 115 mg/dL (74-106); Magnesium 1.5 mg/dL (1.8-2.4); Potassium 4.8 mmol/L (3.5-5.1); Sodium 139 mmol/L (136-145)
== END 2019-09-26 14:32 ==
LOC: NCHCN 14:12
PROVIDERS: PCP Nurse Practitioner Family; Visit Provider Nurse Practitioner Family
DX: I10 Essential (primary) hypertension (principal); E11.9 Type 2 diabetes mellitus without complications; R25.2 Cramp and spasm; J44.9 Chronic obstructive pulmonary disease, unspecified
CPT/HCPCS: 80048; 83735

== ENCOUNTER 2019-10-03 13:55 | Outpatient (REF) | payer MEDICARE, SELFPAY ==
[2019-10-03 23:49] LABS: Anion Gap 7.7 mmol/L (3-11); BUN 26 mg/dL (7-18); CO2 31.3 mmol/L (21.0-32.0); CREATININE 1.54 mg/dL (0.55-1.02); Calcium 8.9 mg/dL (8.5-10.1); Chloride 102 mmol/L (98-107); Glucose 169 mg/dL (74-106); Potassium 4.2 mmol/L (3.5-5.1); Sodium 141 mmol/L (136-145)
== END 2019-10-03 14:15 ==
LOC: NCHCN 13:55
PROVIDERS: PCP Nurse Practitioner Family; Visit Provider Nurse Practitioner Family
DX: N28.9 Disorder of kidney and ureter, unspecified (principal)
CPT/HCPCS: 80048

== ENCOUNTER 2019-11-04 10:13 | Outpatient (REF) | payer MEDICARE, SELFPAY ==
[2019-11-04 19:16] LABS: Anion Gap 7.2 mmol/L (3-11); BUN 20 mg/dL (7-18); CO2 30.8 mmol/L (21.0-32.0); CREATININE 1.32 mg/dL (0.55-1.02); Chloride 101 mmol/L (98-107); Estimated GFR 40.14 (mL/min/1.73m2); Glucose 216 mg/dL (74-106); Potassium 4.5 mmol/L (3.5-5.1); Sodium 139 mmol/L (136-145)
== END 2019-11-04 10:33 ==
LOC: NCHCN 10:13
PROVIDERS: PCP Nurse Practitioner Family; Visit Provider Nurse Practitioner Family
DX: N28.9 Disorder of kidney and ureter, unspecified (principal)
CPT/HCPCS: 80048

== ENCOUNTER 2020-02-13 18:30 | Outpatient (REF) | payer MEDICARE, SELFPAY ==
[2020-02-13 19:42] LABS: Anion Gap 3.8 mmol/L (3-11); BUN 21 mg/dL (7-18); CO2 33.2 mmol/L (21.0-32.0); CREATININE 1.54 mg/dL (0.55-1.02); Calcium 8.8 mg/dL (8.5-10.1); Chloride 102 mmol/L (98-107); Glucose 156 mg/dL (74-106); Potassium 4.9 mmol/L (3.5-5.1); Sodium 139 mmol/L (136-145)
== END 2020-02-13 18:50 ==
LOC: NCHCN 18:30
PROVIDERS: PCP Nurse Practitioner Family; Visit Provider Nurse Practitioner Family
DX: I10 Essential (primary) hypertension (principal)
CPT/HCPCS: 80048

== ENCOUNTER 2020-02-28 01:38 | Outpatient (CLI) | payer MEDICARE, SELFPAY ==
--- NOTE | 2020-02-28 14:30 | DI.CTLCSR_ITS ---
EXAM: CT CHEST LUNG CANCER SCREEN CLINICAL HISTORY: SCREENING FOR LUNG CA, FORMER SMOKER, Z87.891 TECHNIQUE: CT examination of the chest was performed utilizing low-dose lung cancer screening protoc ol. COMPARISON: No exams were available for comparison FINDINGS: Images obtained through the upper abdomen show unremarkable appearance of visualized portions of the liver and spleen. There is no mediastinal or hilar adenopathy. Mediastinal vascular structures appear intact by noncon trast criteria. Note is made of coronary artery calcification. Tracheobronchial tree appears intact. No pleural effusion or pleural-based mass. The lungs are predominantly clear with mild changes of scarring with no significant intrapulmonary no dule identified. IMPRESSION: Negative LD CT of the chest. Lung RADS Cat 1 - Negative: No nodules and definitely benign nodules Continue annual screening with LD CT in 12 months. RADIATION DOSE DELIVERED: LINK-TO-SR Total DLP Total DLP
== END 2020-02-28 01:58 ==
PROVIDERS: PCP Nurse Practitioner Family; Visit Provider Nurse Practitioner Family
DX: Z87.891 Personal history of nicotine dependence (principal)
CPT/HCPCS: G0297

== ENCOUNTER 2020-05-14 15:37 | Outpatient (REF) | payer OTHER, SELFPAY ==
[2020-05-14 15:32] LABS: Anion Gap 7.9 mmol/L (3-11); BUN 26 mg/dL (7-18); CO2 31.1 mmol/L (21.0-32.0); CREATININE 1.6 mg/dL (0.55-1.02); Calcium 8.7 mg/dL (8.5-10.1); Chloride 103 mmol/L (98-107); Estimated GFR 32.05 (mL/min/1.73m2); Glucose 155 mg/dL (74-106); Potassium 4.8 mmol/L (3.5-5.1); Sodium 142 mmol/L (136-145)
[2020-05-14 16:05] LABS: Hemoglobin A1C 7.2 % (<5.7)
== END 2020-05-14 15:38 | disposition home or self-care (01) ==
LOC: NCHCN 15:37
PROVIDERS: PCP Nurse Practitioner Family; Visit Provider Nurse Practitioner Family
DX: E11.9 Type 2 diabetes mellitus without complications (principal); I10 Essential (primary) hypertension; N18.9 Chronic kidney disease, unspecified
CPT/HCPCS: 80048; 83036

== ENCOUNTER 2020-06-18 15:20 | Outpatient (REF) | payer OTHER, SELFPAY ==
[2020-06-18 13:48] LABS: ALT 19 U/L (14-59); AST 17 U/L (15-37); HDL Cholesterol 65 mg/dL (40-60); LDL CHOLESTEROL 114 mg/dL (<100)
[2020-06-18 14:00] LABS: Creatine Kinase 92 U/L (26-192)
== END 2020-06-18 15:21 | disposition home or self-care (01) ==
LOC: NCHCN 15:20
PROVIDERS: PCP Nurse Practitioner Family; Visit Provider Nurse Practitioner Family
DX: E78.5 Hyperlipidemia, unspecified (principal)
CPT/HCPCS: 82550; 83721; 83718; 84450; 84460

== ENCOUNTER 2020-07-17 01:24 | Outpatient (CLI) | payer OTHER, SELFPAY ==
--- NOTE | 2020-07-17 10:22 | DI.US_ITS ---
APPROVED REPORT EXAM: Comprehensive 2D, Doppler, and color-flow Echocardiogram Patient Location: Out-Patient Loin Puller: Elvira Perez RDCS (AE) Indications: Aortic Stenosis, Exertional SOB Other Information Study Quality: Technically Difficult. Technically limited study due to body habitus, inability to pos ition patient. Conclusion Left Ventricle : The left ventricle is normal size. Left ventricular systolic function is borderline. l. Mild concentric left ventricular hypertrophy. There is normal LV segmental wall motion. LVEF is 55 %. Right Ventricle : Right ventricle is grossly normal in size. Right ventricular systolic function is g rossly normal. Atria : The left atrium size is normal. The right atrium size is normal. Aortic Valve : Aortic valve is calcified. Number of aortic valve leaflets could not be assessed. No a ortic regurgitation is present. No hemodynamically significant valvular aortic stenosis though interr ogation of valve is in complete due to technical limitations.. Great Vessels : The aortic root is normal in size. The ascending aorta is mildly dilated. Aortic arch is not well visualized. IVC is normal in size and collapses >50% with inspiration. Compared to study from 10/22/2018, there did not appear to be any significant changes. The aortic valv e mean gradient was previously measured at 20 mmHg though on today's technically limited study, the h ighest measured is is 10 mmHg. Wall motion Left Ventricle The left ventricle is normal size. Left ventricular systolic function is borderline.l. Mild concentri c left ventricular hypertrophy. There is normal LV segmental wall motion. There is no ventricular sep pepe defect visualized. LVEF is 55%. Right Ventricle Right ventricle is grossly normal in size. Right ventricular systolic function is grossly normal. Atria The left atrium size is normal. The right atrium size is normal. The interatrial septum is intact wit h no evidence for an atrial septal defect. Aortic Valve Aortic valve is calcified. Number of aortic valve leaflets could not be assessed. No hemodynamically significant valvular aortic stenosis though interrogation of valve is in complete due to technical li mitations.. No aortic regurgitation is present. Mitral Valve Mild mitral annular calcification. No evidence of mitral valve stenosis. Trace to mild mitral regurgi tation. Tricuspid Valve The tricuspid valve is normal in structure. There is no tricuspid valve stenosis. Trace tricuspid reg urgitation. Unable to assess PA pressure. Pulmonic Valve Pulmonic valve is not well visualized. There is no pulmonic valvular stenosis. There is no pulmonic v alvular regurgitation. Great Vessels The aortic root is normal in size. The ascending aorta is mildly dilated. Aortic arch is not well vis ualized. IVC is normal in size and collapses >50% with inspiration. Pericardium There is no pericardial effusion. 2D Dimensions IVSD d PLAX 1.06 cm F: 0.6-1.0 LV Vol A2C d MOD 157.6 mL LVPW d PLAX 1.06 cm F: 0.6 - 1.0 LV Vol A4C d MOD 140.9 mL LVID d PLAX 4.93 cm F: 3.8 - 5.2 LA vol/ BSA A4C s A-L 11.4 mL/m2 LVDs 3.50 cm F: 2.2 - 3.5 LA Area A4C s MOD 12.61 cm2 Ao Root d 2.78 cm F: 2.7 - 3.3 LV EF A4C MOD 56.5 % RA Area A4C 15.60 cm2 LV EF A2C MOD 54.6 % RA Vol/ BSA A4C s A-L 15.4 mL/m2 LV EF Biplane MOD 54.2 % Ao Asc Diam d 3.31 cm F: 2.3 - 3.1 SV 80.60 mL LV EF Teichholz 53.9 % SV Index 34.69 mL/m2 LVEF (Christiansen's) 54.23 % F: 54 - 74 LV Volume 106.30 mL F: 46 - 106 LV Volume Index 45.81 mL/m2 F: 29 - 61 LV Vol Biplane MOD 148.6 mL FS 27.95 % LV Diastology E/A Ratio 1.1 MV E Vmax 1.04 (0.4-1.3 m/s) MV A Vmax 0.95 (0.4-1.3 m/s) MV E/A Ratio 1.04 Aortic Valve LVOT Area 2.96 cm2 AoV Area Vmax 1.77 cm2 LVOT Vmax 1.11 m/s AoV Area/ BSA (Vmax) 0.76 cm2/m2 LVOT Mean Beka. 0.65 m/s STEVIE Mean Beka. 1.24 cm2 LVOT Peak Grad 5.0 mmHg STEVIE Mean Beka. Index 0.53 cm2/m2 LVOT Mean Grad 2.1 mmHg LVOT VTI 0.160 m LVOT Diam s 1.90 cm AoV Vmax 1.86 m/s Velocity Ratio 0.59 AoV Mean Beka. 1.56 m/s AoV Peak Grad 13.8 mmHg LVOT SV 47.30 mL AoV Mean Grad 9.9 mmHg AoV VTI 0.419 m AoV Area VTI 1.13 cm2 AoV Area/ BSA (VTI) 0.49 cm/m2 Mitral Valve MV DT 222 (160-240 msec) MV PHT 64 msec MV Area PHT 3.42 cm2 MV VTI 0.349 m MV Area VTI 1.36 (4.0-6.0 cm2) Pulmonary Valve PV Vmax 1.27 (0.5-1.5 m/s) RVOT Peak Gr. 2.41 mmHg PV Peak Grad 6.5 mmHg RVOT Mean Gr. 1.50 mmHg PV Mean Grad 3.3 mmHg RVOT VTI 0.169 m PV VTI 0.265 m RVOT Vmax 0.78 m/s
== END 2020-07-17 01:44 ==
PROVIDERS: PCP Nurse Practitioner Family; Visit Provider Nurse Practitioner Family
DX: I35.8 Other nonrheumatic aortic valve disorders (principal); I77.810 Thoracic aortic ectasia; R06.09 Other forms of dyspnea; R93.9 Diagnostic imaging inconclusive due to excess body fat of patient; J44.9 Chronic obstructive pulmonary disease, unspecified
CPT/HCPCS: 93306

== ENCOUNTER 2020-07-30 15:28 | Outpatient (REF) | payer OTHER, SELFPAY ==
[2020-07-30 16:15] LABS: HCT 35.5 % (36.0-46.0); HGB 11.6 g/dL (11.2-15.7); MCHC 32.7 % (32.0-36.0); MCV 107.3 fL (80-95); MPV 8.9 fL (8.0-11.0); Platelet Count 243 10^3/uL (130-400); RBC 3.31 10^6/uL (3.93-5.22); RDW 13.2 % (11.7-14.6); RDW-SD 52.4 fL; WBC 9.74 10^3/uL (4.4-10.8)
[2020-07-30 16:41] LABS: Anion Gap 6.6 mmol/L (3-11); BUN 22 mg/dL (7-18); CO2 32.4 mmol/L (21.0-32.0); CREATININE 1.4 mg/dL (0.55-1.02); Chloride 102 mmol/L (98-107); Estimated GFR 37.39 (mL/min/1.73m2); Glucose 210 mg/dL (74-106); NT-proBNP 392 pg/mL (<300); Potassium 5.1 mmol/L (3.5-5.1); Sodium 141 mmol/L (136-145)
[2020-07-30 16:59] LABS: Hemoglobin A1C 6.8 % (<5.7)
[2020-08-01 12:21] LABS: Alpha 1 Antitrypsin,Serum 133 mg/dL (90-200)
== END 2020-07-30 15:29 | disposition home or self-care (01) ==
LOC: NCHCN 15:28
PROVIDERS: PCP Nurse Practitioner Family; Visit Provider Nurse Practitioner Family
DX: R06.09 Other forms of dyspnea (principal); J44.9 Chronic obstructive pulmonary disease, unspecified; E11.9 Type 2 diabetes mellitus without complications; N28.9 Disorder of kidney and ureter, unspecified
CPT/HCPCS: 80048; 85027; 82103; 83036; 83880; 84443

== ENCOUNTER → 2020-08-09 01:30 | Outpatient (CLI) | payer OTHER, SELFPAY ==
--- NOTE | 2020-08-09 11:00 | DI.NM_ITS ---
APPROVED REPORT Ordering Provider:CLAUDE AGUIRRE, Contact Number: [phone] BMI: 51.48 Baseline Rhythm: Sinus Rhythm Comment: short MD, BBB, PVCs Indications: HYPERLIPIDEMIA, DIABETES, SOB Medical History Medical History: HTN, COPD, Depression, Anxiety, Former smoker, DM, Sleep apnea Cardiac Medications: Aspirin, Rosuvastatin, Jenuvia, Lisinopril, Glipizide, Albuterol sulfate inhaler , Trilogy inhaler, Flovent inhaler, 2L O2 at night. Allergies: No known drug allergies Cardiac Risk Factors: HTN, Hyperlipidemia, Diabetes (non-insulin), Smoking (former), Asthma, COPD, Ob esity Previous Cardiac Procedures: None. Pretest Chest Pain Characteristics: None. Exercise History: Sedentary Physical Disabilities: None. Lung Sounds: Clear to auscultation (diminished) Heart Sounds: Regular Stress Test Details Test: Pharmacologic stress testing performed using 0.4 mg of regadenoson per 5 mL given IV over 10 s econds. Reason for pharmacologic stress test: physical limitation. Nuclear Acquisition: Rest Tc-99m/Stress Tc-99m 1 day Rest Isotope: Tc-99m Sestamibi. Dose: 15 Date: 08/09/2020 Injection Time: 1105 Stress Isotope: Tc-99m Sestamibi. Dose: 46 Date: 08/09/2020 Injection Time: 1320 HR Resting HR Supine: 79 bpm Max Heart Rate (APMHR): 152 bpm Target HR (85% APMHR): 129 bpm Max HR Achieved: 93 bpm % of APMHR: 61 Recovery HR: 82 bpm BP Resting BP Supine: 140/90 mmHg Max BP: 140/90 mmHg Recovery BP: 142/88 mmHg ECG Resting ECG: Sinus Rhythm, shortened MD, BBB Ectopy: PVCs Stress ECG: Sinus Rhythm, shortened MD, BBB ST Change: No significant ST segment changes noted Arrhythmia: PVCs, PACs Recovery ECG: Sinus Rhythm, shortened MD, BBB Recovery ST Change: No significant ST segment changes noted Recovery Arrhythmia: PVCs, PACs Clinical Stress Symptoms: Dyspnea, Headache Rate Pressure Product: [id number] Stress ECG Conclusion 1. This is a pharmacological stress test. 2. The patient had no symptoms suggestive of ischemia. 3. EKG portion of this exam is nondiagnostic. Stress Test Summary STAGE HR BP Symptoms NOTES Supine 79 140/90 1 min post Lexiscan injection 88 140/82 SOB, HENNING 3 min post Lexiscan injection 90 136/84 SOB resolved 6 min post Lexiscan injection 82 142/88 MPI Conclusion The ejection fraction was 58% with stress. There were no wall motion abnormalities. No evidence of ischemia on the imaging portion of the exam. This represents a normal SPECT stress test.
[2020-08-09] MEDS: Regadenoson 0.4 MG/5 ML SYR IVP (13:05)
== END ==
PROVIDERS: PCP Nurse Practitioner Family; Visit Provider Nurse Practitioner Family
DX: E78.5 Hyperlipidemia, unspecified (principal); E11.9 Type 2 diabetes mellitus without complications; R06.09 Other forms of dyspnea; I10 Essential (primary) hypertension; Z87.891 Personal history of nicotine dependence; J44.9 Chronic obstructive pulmonary disease, unspecified; E66.9 Obesity, unspecified; Z68.43 Body mass index [BMI] 50.0-59.9, adult; R94.31 Abnormal electrocardiogram [ECG] [EKG]
CPT/HCPCS: 78452; 93016; 93018; 93017; J2785

== ENCOUNTER 2020-08-28 13:41 | Outpatient (REF) | payer OTHER, SELFPAY ==
[2020-08-28 15:40] LABS: Anion Gap 8.3 mmol/L (3-11); BUN 28 mg/dL (7-18); CO2 31.7 mmol/L (21.0-32.0); CREATININE 1.6 mg/dL (0.55-1.02); Chloride 101 mmol/L (98-107); Estimated GFR 32.05 (mL/min/1.73m2); Glucose 212 mg/dL (74-106); Potassium 4.6 mmol/L (3.5-5.1); Sodium 141 mmol/L (136-145)
== END 2020-08-28 13:42 | disposition home or self-care (01) ==
LOC: LBN 13:41
PROVIDERS: PCP Nurse Practitioner Family; Visit Provider Nurse Practitioner Family
DX: I10 Essential (primary) hypertension (principal); E78.5 Hyperlipidemia, unspecified; E11.9 Type 2 diabetes mellitus without complications
CPT/HCPCS: 80048

== ENCOUNTER 2020-09-30 16:01 | Emergency (ER) | payer OTHER, SELFPAY ==
[2020-09-30 16:08] VITALS: BP 158/86; PULSE 96; RESP 16; TEMP 36.2; O2SAT 95
--- NOTE | 2020-09-30 16:46 | ED.GENADUL_ITS ---
Discharge Plan Disposition Patient Disposition: HOME Condition: Stable Discharge Details Clinical Impression: Dental abscess Primary Care Provider: Liliam Noble ED Provider: Etienne Turner Home Meds and New Rx's Prescriptions: New penicillin V potassium 500 mg tablet 500 mg PO QID Qty: 40 RF: 0 Continued aspirin 81 mg Tablet,Chewable 81 mg PO DAILY RF: 0 naproxen 500 mg Tablet 500 mg PO BID PRNRF: 0 omega-3 fatty acids 1,000 mg Capsule 1,000 mg PO DAILY RF: 0 hydrochlorothiazide 50 mg Tablet 12.5 mg PO DAILY RF: 0 metformin 500 mg Tablet Extended Release 24 Hr 1,000 mg PO BID RF: 0 escitalopram oxalate [Lexapro] 20 mg Tablet 20 mg PO DAILY RF: 0 cholecalciferol (vitamin D3) [Vitamin D3] 2,000 unit Capsule 2,000 unit PO DAILY RF: 0 lisinopril 10 mg Tablet 10 mg PO DAILY RF: 0 rosuvastatin [Crestor] 10 mg Tablet 10 mg PO DAILY RF: 0 cinnamon bark [Cinnamon] 500 mg Capsule 1,000 mg PO DAILY RF: 0 albuterol sulfate [ProAir HFA] 90 mcg/actuation Hfa Aerosol Inhaler 2 puff Inhalation Q6H PRN PRNRF: 0 glipizide [Glucotrol XL] 5 mg Tablet Extended Release 24hr 5 mg PO BID RF: 0 cyclobenzaprine 10 mg Tablet 10 mg PO TID PRN PRNRF: 0 naproxen 500 mg Tablet 500 mg PO BID PRN PRNRF: 0 aspirin [Aspir-81] 81 mg Tablet,Delayed Release (Dr/Ec) 81 mg PO DAILY RF: 0 (DME) nebulizers [facility] [place] Dose Instructions .ROUTE .MEDSUPPLY Qty: 1 RF: 0 Trelegy Ellipta 100-62.5-25 mcg blister with device INHALATION RF: 0 Discharge Instructions Instructions: Penicillin V (By mouth), Dental Abscess (ED) Additional Instructions: Please take full course of antibiotic as prescribed. You were provided a dose for tonight and another dose for early tomorrow morning. Please go to the pharmacy tomorrow to fill the rest of your prescription and continue as prescribed. Please follow-up with dentist. Call for an appointment. Please contact your primary care physician to arrange follow-up. Please discuss COVID-19 vaccination with your primary care physician. Return to the ER for any worsening or new concerning symptoms. Referrals: Liliam Noble [Primary Care Provider] - Discharge Data Discharge Date/Time-TO BE ENTERED AT DEPARTURE: 09/30/20 18:05 Medical Decision Making 70-year-old female here with dental abscess tooth #6. Area was anesthetized with topical bupivacaine and periapical dental block with lidocaine. Abscess was incised and drained. Patient started on penicillin. Patient will need follow-up and she needs help establishing dental care. Patient was encouraged to return for any worsening or new concerning symptoms. HPI General Date/Time Provider Initiated Documentation: 09/30/20 16:17 . Related Data Home Medications Medication Instructions Recorded Confirmed albuterol sulfate [ProAir HFA] 2 puff INHALATION Q6H PRN PRN 11/25/17 09/30/20 aspirin 81 mg PO DAILY 11/25/17 09/30/20 aspirin [Aspir-81] 81 mg PO DAILY 11/25/17 09/30/20 cholecalciferol (vitamin D3) 2,000 unit PO DAILY 11/25/17 09/30/20 [Vitamin D3] cinnamon bark [Cinnamon] 1,000 mg PO DAILY 11/25/17 09/30/20 cyclobenzaprine 10 mg PO TID PRN PRN 11/25/17 09/30/20 escitalopram oxalate [Lexapro] 20 mg PO DAILY 11/25/17 09/30/20 glipizide [Glucotrol XL] 5 mg PO BID 11/25/17 09/30/20 hydrochlorothiazide 12.5 mg PO DAILY 11/25/17 09/30/20 lisinopril 10 mg PO DAILY 11/25/17 09/30/20 metformin 1,000 mg PO BID 11/25/17 09/30/20 naproxen 500 mg PO BID PRN 11/25/17 09/30/20 naproxen 500 mg PO BID PRN PRN 11/25/17 09/30/20 omega-3 fatty acids 1,000 mg PO DAILY 11/25/17 09/30/20 rosuvastatin [Crestor] 10 mg PO DAILY 11/25/17 09/30/20 nebulizers #1 each NS 11/30/17 Trelegy Ellipta INHALATION 09/30/20 penicillin V potassium 500 mg PO QID #40 tab 09/30/20 Previous Rx's Medication Instructions Recorded nebulizers #1 each NS 11/30/17 penicillin V potassium 500 mg PO QID #40 tab 09/30/20 Allergies Allergy/AdvReac Type Severity Reaction Status Date / Time Sulfa (Sulfonamide Allergy Unverified 09/30/20 16:13 Antibiotics) General Stated Complaint: DentalOral VIRY: 4 [facility] Medical History (Updated 09/30/20 @ 16:48 by Etienne Turner MD) COPD with acute exacerbation Depression Tobacco abuse Social History Smoking/Tobacco Use Status: Former Tobacco Use Smoking risk assessment performed?: Yes Drug use: Never Do you feel safe in your relationship?: Yes Exam Const General: cooperative and no acute distress HENMT Head: normocephalic Face and sinus: face asymmetric, no crepitus, no erythema and other (Swelling right maxilla) Mouth: moist mucous membranes Teeth and gingiva: poor dentition and other (Fluctuant abscess adjacent to tooth #6) Throat: posterior oropharynx normal Eyes Conjunctivae: normal conjunctivae Sclera: normal sclerae EOM: EOM intact bilaterally Neck Neck: trachea midline and supple Resp Auscultation: clear to auscultation bilaterally, no rales, no rhonchi and no wheezes Cardio Jugular venous pressure: no JVD Rate: regular rate and not tachycardic Rhythm: regular rhythm Neuro General: patient alert, patient awake, patient oriented x3 and tone normal Course Vital Signs Vital signs: Vital Signs Temperature 36.2 C L 09/30/20 16:08 Pulse 96 H 09/30/20 16:08 Respiratory Rate 16 09/30/20 16:08 Blood Pressure 158/86 H 09/30/20 16:08 Pulse Oximetry 95 09/30/20 16:08 Temperature 36.2 C L 09/30/20 16:08 Temperature Source Skin 09/30/20 16:08 Pulse 96 H 09/30/20 16:08 Respiratory Rate 16 09/30/20 16:08 Respiratory Effort Non-Labored 09/30/20 16:08 Blood Pressure 158/86 H 09/30/20 16:08 Blood Pressure Position Sitting 09/30/20 16:08 Pulse Oximetry 95 09/30/20 16:08 Oxygen Delivery Method Room Air 09/30/20 16:08 Oxygen Flow Rate 0 09/30/20 16:08 Pain Level 9 09/30/20 16:08 Procedures Abscess I/D Site: Other (dental) Side (if applicable): Right Local Anesthetic: Lidocaine 1% Amount of anesthesia used (mL): 1 Technique: Incised with #11 Blade Amount of fluid expressed (mL): 3 Packing used?: None
--- NOTE | 2020-09-30 16:49 | NUR.NOTE ---
Nursing Note: Referral given to Care Management to obtain a dentist for follow up of dental abscess within 10days. Khadijah Cruz
[2020-09-30] MEDS: Penicillin V POTASSIUM 500 MG TAB PO (16:59)
[2020-09-30] MEDS: Penicillin V POTASSIUM 500 MG TAB 1000 MG PO (17:00)
[2020-09-30] MEDS: Lidocaine 1% Multi-Dose 50 ML VIAL IJ (17:15)
[2020-09-30] MEDS: Benzocaine 20% Gel 30 GM JAR MM (17:15)
[2020-09-30 17:42] VITALS: BP 158/86; PULSE 96; RESP 16; TEMP 36.2; O2SAT 95
== END 2020-09-30 18:05 | disposition home or self-care (01) ==
PROVIDERS: Emergency Provider Student in an Organized Health Care Education/Training Program; PCP Nurse Practitioner Family
DX: R22.0 Localized swelling, mass and lump, head (principal); K04.7 Periapical abscess without sinus
CPT/HCPCS: 36416; 41800; 82962

== ENCOUNTER 2020-12-27 11:29 | Outpatient (REF) | payer OTHER, MEDICAID, SELFPAY ==
[2020-12-27 15:03] LABS: ALT 20 U/L (14-59); AST 16 U/L (15-37); HDL Cholesterol 58 mg/dL (40-60); LDL CHOLESTEROL 93 mg/dL (<100)
[2020-12-27 15:14] LABS: Creatine Kinase 119 U/L (26-192)
== END 2020-12-27 11:30 | disposition home or self-care (01) ==
LOC: NCHCN 11:29
PROVIDERS: PCP Nurse Practitioner Family; Visit Provider Nurse Practitioner Family
DX: E78.5 Hyperlipidemia, unspecified (principal)
CPT/HCPCS: 82550; 83721; 83718; 84450; 84460

== ENCOUNTER 2020-12-27 19:18 | Inpatient (IN) | payer OTHER, SELFPAY ==
[2020-12-27] VITALS (17 sets, daily range): BP systolic 70–89; BP diastolic 33–54; PULSE 85–95; RESP 15–26; TEMP 36.4; O2SAT 91–98
--- NOTE | 2020-12-27 19:45 | DI.RAD_ITS ---
Exam(s) XR PELVIS AP XR FEMUR LT EXAM: XR PELVIS AP CLINICAL HISTORY: Fall TECHNIQUE: COMPARISON: CR LUMBAR SPINE COMPLETE from 01/23/[address] ABDOMEN PELVIS WO from 12/27/[address] ABDOMEN PELVIS WO from 12/27/2020 CR,XR XR FEMUR LT from 12/27/2020 CR,XR XR FEMUR LT from 12/27/2020 FINDINGS: Two views of the hips and three views of the left femur are interpreted in conjunction. There is no evidence of acute fracture or dislocation. IMPRESSION: RADIATION DOSE DELIVERED: Total DLP
--- NOTE | 2020-12-27 19:45 | DI.RAD_ITS ---
Exam(s) XR KNEE LT 3V AP,LAT,ARJUN EXAM: XR KNEE LT 3V AP,LAT,ARJUN CLINICAL HISTORY: Fall TECHNIQUE: COMPARISON: No exams were available for comparison FINDINGS: Three views were obtained. There is no evidence of fracture or dislocation. There are mild degenera tive changes involving the joints of the knee. IMPRESSION: RADIATION DOSE DELIVERED: Total DLP
--- NOTE | 2020-12-27 19:45 | RT.EKG_ITS ---
APPROVED REPORT Exam: Resting ECG Reason for Exam: Fall, Hypotension Patient Location: E HR:91 bpm ECG Measurements Heart Rate 91 AXIS NH 140 P 54 QRSd 150 QRS 80 QT 408 T 33 QTc 502 Conclusion Sinus rhythm...normal P axis, V-rate 60- 99 Probable left atrial enlargement...P >50mS, <-0.10mV V1 Right bundle branch block...QRSd>120, terminal axis(90,270) I have reviewed and interpreted ECG and agree with software generated interpretation. There are no significant changes compared to prior EKG performed on 11/24/2017 at 18:59.
--- NOTE | 2020-12-27 19:56 | ED.GENADUL_ITS ---
Discharge Plan Discharge Details Chief Complaint: Orthopedic Primary Care Provider: Liliam Nobel ED Provider: Anna Feliciano Home Meds and New Rx's Prescriptions: No Action ipratropium-albuterol 0.5 mg-3 mg(2.5 mg base)/3 mL solution for nebulization 3 ml inhalation Q6H PRNRF: 0 (DME) Oxygen Tank See Rx Instructions .ROUTE .MEDSUPPLY Qty: 1 RF: 0 omega-3 fatty acids 1,000 mg Capsule 1,000 mg PO DAILY RF: 0 hydrochlorothiazide 50 mg Tablet 12.5 mg PO DAILY RF: 0 escitalopram oxalate [Lexapro] 20 mg Tablet 20 mg PO DAILY RF: 0 cholecalciferol (vitamin D3) [Vitamin D3] 2,000 unit Capsule 2,000 unit PO DAILY RF: 0 lisinopril 10 mg Tablet 10 mg PO DAILY RF: 0 rosuvastatin [Crestor] 10 mg Tablet 10 mg PO DAILY RF: 0 cinnamon bark [Cinnamon] 500 mg Capsule 1,000 mg PO DAILY RF: 0 albuterol sulfate [ProAir HFA] 90 mcg/actuation Hfa Aerosol Inhaler 2 puff Inhalation Q6H PRN PRNRF: 0 glipizide [Glucotrol XL] 5 mg Tablet Extended Release 24hr 5 mg PO BID RF: 0 cyclobenzaprine 10 mg Tablet 10 mg PO TID PRN PRNRF: 0 aspirin [Aspir-81] 81 mg Tablet,Delayed Release (Dr/Ec) 81 mg PO DAILY RF: 0 (DME) nebulizers misc See Dose Instructions .ROUTE .MEDSUPPLY Qty: 1 RF: 0 Trelegy Ellipta 100-62.5-25 mcg blister with device INHALATION RF: 0 Medical Decision Making 60-year-old female presents to the ER via EMS status post fall through a wooden porch at 1600 today. She has been entrapped for approximately 3 hours. She was with some word entrapped within the porch her left leg and knee area pinched between the board. Her right leg was extended out. EMS had to cut the boards to extricate patient. She does have some swelling and ecchymosis noted to the left knee anterior bergeron and thigh area. Small contusion noted to the right knee. She does have a past medical history of COPD depression, diabetes, hypertension and tobacco abuse. She does normally wear 2 L of oxygen nasal cannula. She denies any chest pain or shortness of breath upon arrival. She is hypotensive upon arrival blood pressure 83/52 pulse ninety-five, respirate fifteen, O2 sat 92 to 95% on room air. She is complaining of nausea. Normal saline 1 L wide open ordered for a liter bolus, 50 mcg of fentanyl order, patient placed on 2 L nasal cannula which is her normal oxygen requirement at home. Critical lab results obtained blood cell count 31.37, CKs 370, sodium 134, potassium 5.1, chloride ninety-seven, anion gap 11.2 BUN 39 creatinine 2.9 GFR 16.14, glucose 436, initial troponin within normal limits, albumin 3.2. 2126: Patient returned from x-ray blood pressure is improved at 94/56 heart rate is 84, 98% on [address] abdomen pelvis with IV contrast ordered, 25 mcg fentanyl and urinalysis. 2133: Blood pressure is up to 110/45. IV is infusing without difficulty. CT Abd/Pelvis w/o: IMPRESSION: 1. Fatty liver change and benign hepatic calcifications likely representing old granulomatous type disease. 2. Features of chronic pancreatitis with atrophy and multiple pancreatic calcifications. No acute inflammation or mass. 3. Gallstones. No acute biliary tract findings. 4. Colonic diverticulosis. No acute diverticulitis. 5. Degenerative lumbar spine disease. 6. Benign left adrenal nodule consistent with a lipid rich adenoma. 7. 2 right renal lesions as described above likely representing cysts, but indeterminate by noncontrast CT. Recommend follow-up nonemergent ultrasound. Spoke with Triny Delaney NP who is on for hospitalist coverage regarding patient case and details. She agrees to accept patient for admission to [facility] for rhabdomyolysis crushing injury. She does recommend lactate which was added onto labs. Repeat CBC BMP and CK ordered at this time. White blood cell are improving from 31,000-26,000. At this time BMP is pending, and CK is pending. Informed patient and family on plan of care who verbalized understanding and are in agreement with plan. Patient having diarrhea. Remains awake and alert. HPI General Mode of arrival: EMS . Date/Time Provider Initiated Documentation: 12/27/20 19:34 . Limitations to Documentation: no limitations . Information obtained by: patient, EMS, RN notes reviewed and old records reviewed . HPI Narrative: 60-year-old female presents to the ER via EMS status post fall through a wooden porch at 1600 today. She has been entrapped for approximately 3 hours. She was with some word entrapped within the porch her left leg and knee area pinched between the board. Her right leg was extended out. EMS had to cut the boards to extricate patient. She does have some swelling and ecchymosis noted to the left knee anterior bergeron and thigh area. Small contusion noted to the right knee. She does have a past medical history of COPD depression, diabetes, hypertension and tobacco abuse. She does normally wear 2 L of oxygen nasal cannula. She denies any chest pain or shortness of breath upon arrival. She is hypotensive upon arrival blood pressure 83/52 pulse ninety-five, respirate fifteen, O2 sat 92 to 95% on room air. She is complaining of nausea. Related Data Home Medications Medication Instructions Recorded Confirmed albuterol sulfate [ProAir HFA] 2 puff INHALATION Q6H PRN PRN 11/25/17 11/14/20 aspirin [Aspir-81] 81 mg PO DAILY 11/25/17 12/27/20 cholecalciferol (vitamin D3) 2,000 unit PO DAILY 11/25/17 12/27/20 [Vitamin D3] cinnamon bark [Cinnamon] 1,000 mg PO DAILY 11/25/17 12/27/20 cyclobenzaprine 10 mg PO TID PRN PRN 11/25/17 12/27/20 escitalopram oxalate [Lexapro] 20 mg PO DAILY 11/25/17 12/27/20 glipizide [Glucotrol XL] 5 mg PO BID 11/25/17 12/27/20 hydrochlorothiazide 12.5 mg PO DAILY 11/25/17 12/27/20 lisinopril 10 mg PO DAILY 11/25/17 12/27/20 omega-3 fatty acids 1,000 mg PO DAILY 11/25/17 12/27/20 rosuvastatin [Crestor] 10 mg PO DAILY 11/25/17 12/27/20 nebulizers #1 each NS 11/30/17 11/14/20 Trelegy Ellipta INHALATION 09/30/20 11/14/20 Oxygen #1 ea 10/25/20 11/14/20 ipratropium 0.5 mg-albuterol 3 mg 3 ml INHALATION Q6H PRN 10/25/20 12/27/20 (2.5 mg base)/3 mL nebulization soln Previous Rx's Medication Instructions Recorded nebulizers #1 each NS 11/30/17 Allergies Allergy/AdvReac Type Severity Reaction Status Date / Time codeine Allergy Mild Verified 12/27/20 19:35 fluticasone Allergy Mild Verified 12/27/20 19:35 [From Advair Diskus] salmeterol Allergy Mild Verified 12/27/20 19:35 [From Advair Diskus] Sulfa (Sulfonamide Allergy Unverified 12/27/20 19:35 Antibiotics) General Stated Complaint: Orthopedic VIRY: 3 Review of Systems All systems reviewed & are unremarkable except as noted in HPI and below Musculoskeletal Musculoskeletal: Reports as per HPI and Reports radiating pain into limb (Left leg) [facility] Medical History COPD with acute exacerbation Depression Tobacco abuse Social History Smoking/Tobacco Use Status: Former Tobacco Use Smoking risk assessment performed?: Yes Alcohol Intake: current Alcohol Intake frequency: holidays/special occasions only Drug use: Never Do you feel safe at home: Yes (declines assistance) Do you feel safe in your relationship?: Yes Exam Narrative Exam Narrative: Constitutional: Alert and oriented x3. Appears stated age. Obese body habitus. Head: Normocephalic, no trauma. Eyes: Pupils PERRLA, Red reflex noted, EOM's intact. Eyelids symmetrical without lesions, discharge, or swelling. ENT: Bilateral TM's WNL, External ear normal to inspection, no mastoid TTP, swelling, or erythema, Nasal turbinates WNL, no nasal discharge. Normal dentition, Posterior pharynx WNL, no exudate. Chest: RRR, Normal S1, S2, distal pulses intact. Hypotensive upon arrival 83/52 heart rate ninety-five. Resp: Lungs diminished to auscultation bilaterally. Abdomen: Soft, tender to palpation suprapubically bilaterally. Musculoskeletal: Unable to assess gait. Able to bend right knee with some pain. Does have distal CMS intact feet bilaterally. Does have some ecchymosis, contusions and abrasions noted to the left knee and thigh. Dorsal pedal pulses intact bilaterally. Swelling noted to the left lower extremity. Skin: Capillary refill less than 2 sec. Neurologic: Cranial nerves II-XII intact. Alert and oriented x 3. DTR's intact. Hematologic/Lymphatic: No ecchymosis, no lymphadenopathy. Course Vital Signs Vital signs: Vital Signs Temperature 36.4 C L 12/27/20 19:19 Pulse 95 H 12/27/20 19:19 Respiratory Rate 15 12/27/20 19:19 Blood Pressure 83/52 L 12/27/20 19:19 Pulse Oximetry 95 12/27/20 19:19 Temperature 36.4 C L 12/27/20 19:19 Temperature Source Skin 12/27/20 19:19 Pulse 95 H 12/27/20 19:19 Respiratory Rate 15 12/27/20 19:19 Respiratory Effort 12/27/20 19:30 Blood Pressure 83/52 L 12/27/20 19:19 Blood Pressure Position Supine 12/27/20 19:19 Pulse Oximetry 95 12/27/20 19:19 Oxygen Delivery Method Room Air 12/27/20 19:19 Oxygen Flow Rate 0 12/27/20 19:19 Pain Level 10 12/27/20 19:19 PAWSS Have you Been Recently Intoxicated or Drunk Within the Last 30 days?: No Have you Ever Experienced Previous Episodes of Alcohol Withdrawal?: No Have you ever Experienced Withdrawal Seizures?: No Have you ever Experienced Delirium Tremens(DT)s?: No Have you ever undergone Alcohol Rehabilitation Treatment (i.e, inpt ot outpatient treatment programs)?: No Have you ever Experienced Blackouts?: No Have you ever Combined Alcohol with other Downers within the last 90 days?: No Have you ever Combined Alcohol with any other Substance of Abuse during the last 90 days?: No Positive Blood Alcohol level on Presentation? [PCS.BAL]: No Evidence of Increased Autonomic Activity (i.e. HR>120, tremor, sweating, agitation, nausea)?: No Result: 0
[2020-12-27] MEDS: Normal Saline 1,000 ML 1000 ML IV ×2 (20:19→23:30)
[2020-12-27] MEDS: fentaNYL 100 MCG/2 ML VIAL 50 MCG IVP (20:21)
[2020-12-27 20:28] LABS: Abs Immature Grans 0.34 10^3/uL (0.0-0.06); Absolute Lymphocyte Count 1.22 10^3/uL (1.2-3.4); Absolute Monocyte Count 1.41 10^3/uL (0.1-0.8); Basophils % 0.3; Eosinophils % 0.1; HCT 35.6 % (36.0-46.0); HGB 11.7 g/dL (11.2-15.7); Immature Grans % 1.1; Lymphocytes % 3.9; MCH 34.3 pg (27.0-33.0); MCHC 32.9 % (32.0-36.0); MCV 104.4 fL (80-95); MPV 8.8 fL (8.0-11.0); Monocytes % 4.5; Neutrophils % 90.1; Nucleated RBC 0 %; Platelet Count 389 10^3/uL (130-400); RBC 3.41 10^6/uL (3.93-5.22); RDW 12.7 % (11.7-14.6); RDW-SD 48.7 fL
[2020-12-27 20:29] LABS: Absolute Basophil Count 0.09 10^3/uL (0.0-0.2); Absolute Eosinophil Count 0.03 10^3/uL (0.0-0.7); Absolute Neutrophil Count 28.26 10^3/uL (1.2-6.7)
[2020-12-27 20:37] LABS: ALT 19 U/L (14-59); AST 24 U/L (15-37); Albumin 3.2 g/dL (3.4-5.0); Alkaline Phosphatase 104 U/L (46-116); Anion Gap 11.2 mmol/L (3-11); BUN 39 mg/dL (7-18); Bilirubin, Total 0.5 mg/dL (0.2-1.0); CO2 25.8 mmol/L (21.0-32.0); CREATININE 2.9 mg/dL (0.55-1.02); Calcium 9.4 mg/dL (8.5-10.1); Chloride 97 mmol/L (98-107); Creatine Kinase 370 U/L (26-192); Estimated GFR 16.14 (mL/min/1.73m2); Glucose 436 mg/dL (74-106); Magnesium 2.1 mg/dL (1.8-2.4); Potassium 5.1 mmol/L (3.5-5.1); Sodium 134 mmol/L (136-145); Total Protein 7.7 g/dL (6.4-8.2); Troponin I < 0.05 ng/mL (<0.06)
[2020-12-27 20:42] LABS: WBC 31.37 10^3/uL (4.4-10.8)
[2020-12-27 21:00] LABS: Diff Comment Diff Reviewed
--- NOTE | 2020-12-27 21:00 | DI.RAD_ITS ---
Exam(s) XR KNEE RT 3V AP,LAT,ARJUN EXAM: XR KNEE RT 3V AP,LAT,ARJUN CLINICAL HISTORY: Fall, Pain TECHNIQUE: COMPARISON: CR,XR XR KNEE LT 3V AP,LAT,ARJUN from 12/27/2020 FINDINGS: Three views were obtained. There is no evidence of acute fracture or dislocation. There are degener ative changes of all 3 joints of the knee, most marked involving the medial tibiofemoral joint. IMPRESSION: RADIATION DOSE DELIVERED: Total DLP
[2020-12-27 21:01] LABS: Macrocytosis 3+
--- NOTE | 2020-12-27 21:25 | DI.CT_ITS ---
Exam(s) CT ABDOMEN PELVIS WO EXAM: CT ABDOMEN PELVIS WO INDICATION: Trauma, Abd pain, Involve left thigh. COMPARISON: No exams were available for comparison TECHNIQUE: FINDINGS: CT examination of the abdomen and pelvis was performed without contrast administration. Images obtai janes through the lung bases are unremarkable. The liver is shows decreased attenuation consistent with hepatic steatosis. Presumed benign 5 hepati c calcifications noted. Note is made of cholelithiasis. No biliary dilatation.. Pancreas shows characteristic appearance suggesting atrophy with probable chronic pancreatitis sugges wanda by pancreatic calcifications period. Spleen is unremarkable in appearance. There is an apparent 13 millimeter low-attenuation nodule of left adrenal, presumed. No other signif icant findings. There is no evidence of hydronephrosis or nephrolithiasis. There are a couple fluid attenuation mass of right kidney consistent cysts. Urinary bladder unremarkable. Abdominal aorta is of normal diameter and no major vascular abnormality is seen. No abdominal wall hernia. No abdominal or pelvic adenopathy. [employer] structures appear intact. Appendix is normal. No evidence of diverticulitis or bowel obstruction. IMPRESSION: No evidence of acute intra-abdominal process. Cholelithiasis noted. Possible chronic pancreatitis. RADIATION DOSE DELIVERED: 1,634.54mGy.cm Total DLP 1,634.54mGy.cm Total DLP CTDIvol RADIATION OPTIMIZATION: All CT scans at this facility use at least one of these dose optimization te chniques: automated exposure control; mA and/or kV adjustment per patient size (includes targeted exa ms where dose is matched to clinical indication); or iterative reconstruction.
[2020-12-27] MEDS: fentaNYL 100 MCG/2 ML VIAL 25 MCG IVP (21:56)
--- NOTE | 2020-12-27 21:57 | DI.VRAD_ITS ---
PROCEDURE INFORMATION: Exam: XR Right Knee Exam date and time: 12/27/2020 9:02 PM Age: 70 years old Clinical indication: Injury or trauma; Fall; Blunt trauma; Knee; Right TECHNIQUE: Imaging protocol: XR Right knee. Views: 3 views. COMPARISON: No relevant prior studies available. FINDINGS: Bones/joints: Moderate to severe arthritic degeneration. No acute fracture. No dislocation. No joint effusion. Soft tissues: No soft tissue foreign body or soft tissue emphysema. IMPRESSION: 1. Arthritic degeneration. 2. No acute fracture or dislocation. 3. No soft tissue foreign body. Dictated and Authenticated by: Carlos Hoskins MD. Ordering:LISBETH Castillo MD
--- NOTE | 2020-12-27 22:04 | DI.VRAD_ITS ---
PROCEDURE INFORMATION: Exam: XR Left Knee Exam date and time: 12/27/2020 7:56 PM Age: 70 years old Clinical indication: Injury or trauma; Fall; Blunt trauma; Knee; Left TECHNIQUE: Imaging protocol: XR Left knee. Views: 3 views. COMPARISON: CR LEFT KNEE 3 VIEW COMPLETE 01/23/2016 9:12 AM FINDINGS: Bones/joints: Moderate medial joint and patellofemoral joint space degenerative disease. No fracture. No dislocation. Soft tissues: Nonspecific soft tissue swelling surrounding the knee. No foreign body. IMPRESSION: 1. Degenerative arthritis of the left knee. 2. No acute fracture or dislocation. 3. Nonspecific soft tissue swelling. Dictated and Authenticated by: Carlos Hoskins MD. Ordering:LISBETH Castillo MD
--- NOTE | 2020-12-27 22:05 | DI.VRAD_ITS ---
PROCEDURE INFORMATION: Exam: XR Left Femur Exam date and time: 12/27/2020 7:56 PM Age: 70 years old Clinical indication: Injury or trauma; Fall; Blunt trauma; Thigh or upper leg; Left TECHNIQUE: Imaging protocol: XR Left femur. Views: 2 views. COMPARISON: CR XR KNEE LT 3V AP,LAT,ARJUN 12/27/2020 8:59 PM FINDINGS: Bones/joints: Unremarkable. No acute fracture. Soft tissues: Unremarkable. IMPRESSION: 1. No acute findings. 2. No fracture. No dislocation. 3. No soft tissue foreign body. Dictated and Authenticated by: Carlos Hoskins MD. Ordering:LISBETH Castillo MD
--- NOTE | 2020-12-27 22:07 | DI.VRAD_ITS ---
PROCEDURE INFORMATION: Exam: XR Pelvis Exam date and time: 12/27/2020 7:56 PM Age: 70 years old Clinical indication: Injury or trauma; Fall; Blunt trauma (contusions or hematomas); Bilateral; Pelvic region TECHNIQUE: Imaging protocol: XR pelvis. Views: 1 or 2 view. COMPARISON: CR XR FEMUR LT 12/27/2020 9:02 PM FINDINGS: Bones/joints: Degenerative lumbosacral spine. No acute fracture. No pelvic diastasis Soft tissues: Unremarkable. IMPRESSION: 1. No acute findings. 2. No fracture or diastasis. 3. Degenerative lumbosacral spine disease. Dictated and Authenticated by: Carlos Hoskins MD. Ordering:LISBETH Castillo MD
--- NOTE | 2020-12-27 22:58 | DI.VRAD_ITS ---
PROCEDURE INFORMATION: Exam: CT Abdomen And Pelvis Without Contrast Exam date and time: 12/27/2020 10:16 PM Age: 70 years old Clinical indication: Abdominal pain TECHNIQUE: Imaging protocol: Computed tomography of the abdomen and pelvis without contrast. COMPARISON: CR XR PELVIS AP 12/27/2020 9:08 PM FINDINGS: Lungs: Lung bases are clear. Pleural spaces: No pleural effusion. Heart: Normal heart size. No pericardial effusion. Liver: Mild diffuse fatty liver change. No hepatic enlargement. Benign calcifications in the right hepatic lobe suggesting an old granulomatous type process. Gallbladder and bile ducts: Small gallstones. No biliary ductal dilatation. No gallbladder wall thickening. Pancreas: Severe pancreatic atrophy. Multiple punctate pancreatic calcifications suggesting chronic pancreatitis. No acute inflammation. Spleen: The spleen is normal in size, contour and attenuation. Adrenal glands: Benign-appearing left adrenal nodule measuring 2.0 x 1.2 cm. Series 2, image 28. There are some negative internal Hounsfield units consistent with a lipid rich adenoma. Kidneys and ureters: Right lower pole parenchymal lesion measuring 2.2 cm. See coronal series 3, image 67. This is indeterminate in appearance by noncontrast CT, but likely a cyst. A right upper pole partially exophytic renal focus measuring 12 mm is seen on coronal image 75. A follow-up nonemergent outpatient renal ultrasound is suggested. Stomach and bowel: Gastric morphology is unremarkable. No edema. No gastric outlet obstruction. Small hiatal hernia. No acute features.Small bowel loops are normal in course and caliber. There is no mucosal edema or bowel wall thickening. No obstructive features. Large bowel with scattered diverticulosis. No acute diverticulitis. No large bowel obstruction. No edema. No masslike features. Formed feces. Appendix: A non inflamed appendix is seen. Series 2, images 58 through 51 retrocecal in location. Intraperitoneal space: Unremarkable. No free air. No significant fluid collection. Vasculature: Atherosclerotic abdominal aorta. No aneurysm. Lymph nodes: Unremarkable. No enlarged lymph nodes. Urinary bladder: Unremarkable as visualized. Reproductive: The uterus and adnexa are unremarkable in appearance. There are no dominant adnexal cysts or masslike features. There are no inflammatory features. No uterine mass evident. Bones/joints: Degenerative lumbar spine disease. Multilevel severe disc degeneration and facet degeneration. Multilevel lumbar spinal stenosis. Soft tissues: Abdominal wall soft tissues are unremarkable. IMPRESSION: 1. Fatty liver change and benign hepatic calcifications likely representing old granulomatous type disease. 2. Features of chronic pancreatitis with atrophy and multiple pancreatic calcifications. No acute inflammation or mass. 3. Gallstones. No acute biliary tract findings. 4. Colonic diverticulosis. No acute diverticulitis. 5. Degenerative lumbar spine disease. 6. Benign left adrenal nodule consistent with a lipid rich adenoma. 7. 2 right renal lesions as described above likely representing cysts, but indeterminate by noncontrast CT. Recommend follow-up nonemergent ultrasound. Dictated and Authenticated by: Carlos Hoskins MD. Ordering:LISBETH Castillo MD
[2020-12-27 23:24] LABS: HCT 33.7 % (36.0-46.0); HGB 11.1 g/dL (11.2-15.7); MCHC 32.9 % (32.0-36.0); MCV 103.4 fL (80-95); MPV 8.8 fL (8.0-11.0); Platelet Count 302 10^3/uL (130-400); RBC 3.26 10^6/uL (3.93-5.22); RDW 12.9 % (11.7-14.6); RDW-SD 47.9 fL
[2020-12-27 23:28] LABS: WBC 26.03 10^3/uL (4.4-10.8)
[2020-12-27 23:41] LABS: Bilirubin Negative (Negative); Blood Moderate (Negative); Clarity Clear (Clear); Glucose 100 mg/dL (Negative); Ketones Negative (Negative); Leukocyte Esterase Negative (Negative); Nitrite Negative (Negative); Specific Gravity >= 1.030 (1.005-1.025); Urobilinogen 0.2 EU/dL (Up TO 0.2)
[2020-12-27 23:46] LABS: Troponin I 0.05 ng/mL (<0.06)
[2020-12-27 23:49] LABS: Bacteria Negative HPF (Negative); C & S Indicated? No; Crystals Moderate Amorphous HPF (Negative); Epithelial Cells Moderate HPF (Negative); Mucus Negative (Negative); Other Cells Mod Transitional (Negative); WBC 0-2 HPF (0-5)
[2020-12-27 23:50] LABS: Anion Gap 5.6 mmol/L (3-11); BUN 42 mg/dL (7-18); CO2 29.4 mmol/L (21.0-32.0); CREATININE 2.8 mg/dL (0.55-1.02); Chloride 100 mmol/L (98-107); Glucose 360 mg/dL (74-106); Potassium 4.5 mmol/L (3.5-5.1); Sodium 135 mmol/L (136-145)
--- NOTE | 2020-12-27 23:50 | HPE_ITS ---
Date of service: 12/28/20 Time of Service: 00:30 Assessment and Plan Assessment and plan (1) Traumatic injury of left lower extremity: Start date: 12/28/20 Start time: 01:00 Status: Acute Assessment and plan: Fell through porch and was stuck there for three hours calling until neighbor heard her. She was found to have elevated WBC in ED with slightly elevated lactate On arrival hypotensive required 2 L of IVF, bps were then soft (2) COPD (chronic obstructive pulmonary disease): Start date: 12/28/20 Start time: 01:00 Status: Chronic Assessment and plan: At baseline will continue home medication Qualifiers: COPD type: emphysema Emphysema type: centrilobular Qualified Code(s): J43.2 - Centrilobular emphysema (3) Hypertension: Start date: 12/28/20 Start time: 01:00 Status: Chronic Assessment and plan: meds with parameters (4) Tobacco abuse: Start date: 12/28/20 Start time: 01:00 Status: Chronic (5) Diabetes mellitus: Start date: 12/28/20 Start time: 01:00 Status: Chronic Assessment and plan: hold orals SSI as she insulin naive (6) DVT prophylaxis: Start date: 12/28/20 Start time: 01:00 Status: Acute Assessment and plan: Enoxaparin discussed with Dr. Montes History of Present Illness History of Present Illness Chief Complaint: Traumatic Fall, bruising Narra tive: 70 y.o female that presented to the ED after falling through her front porch and entrapped for apporx. 3 hours. She had to be cut out of her porch. She does have some swelling and ecchymosis noted to the left knee anterior bergeron and thigh area. Small contusion noted to the right knee. She has PMH of COPD with oxygen dependence, initially hypotensive in ED she received 2 L of IVF and this improved to 100/60, CK slightly elevated however WBC of 31 and again on repeat 26 in the ED. Bun and Creatinine elevated above baseline as well. Will repeat Ck in am, hold any statins or nephrotoxic medication, imaging was not revealing for fx or dislocations, however continue to monitor, lactate pending. Will admit to obs with IVF and monitoring. PT evaluation as well. Will consult ortho for am. Review of Systems All systems reviewed & are unremarkable except as noted in HPI and below PFSH Medical History COPD with acute exacerbation Depression Tobacco abuse Social History Smoking/Tobacco Use Status: Former Tobacco Use Smoking risk assessment performed?: Yes Alcohol Intake: current Alcohol Intake frequency: holidays/special occasions only Drug use: Never Do you feel safe at home: Yes (declines assistance) Do you feel safe in your relationship?: Yes Meds Allergies and Home Medications Allergies Allergy/AdvReac Type Severity Reaction Status Date / Time codeine Allergy Mild Verified 12/27/20 19:35 fluticasone Allergy Mild Verified 12/27/20 19:35 [From Advair Diskus] salmeterol Allergy Mild Verified 12/27/20 19:35 [From Advair Diskus] Sulfa (Sulfonamide Allergy Unverified 12/27/20 19:35 Antibiotics) Home Medications Medication Instructions Recorded Confirmed Type albuterol sulfate [ProAir HFA] 2 puff INHALATION Q6H PRN PRN 11/25/17 11/14/20 History aspirin [Aspir-81] 81 mg PO DAILY 11/25/17 12/27/20 History cholecalciferol (vitamin D3) 2,000 unit PO DAILY 11/25/17 12/27/20 History [Vitamin D3] cinnamon bark [Cinnamon] 1,000 mg PO DAILY 11/25/17 12/27/20 History cyclobenzaprine 10 mg PO TID PRN PRN 11/25/17 12/27/20 History escitalopram oxalate [Lexapro] 20 mg PO DAILY 11/25/17 12/27/20 History glipizide [Glucotrol XL] 5 mg PO BID 11/25/17 12/27/20 History hydrochlorothiazide 12.5 mg PO DAILY 11/25/17 12/27/20 History lisinopril 10 mg PO DAILY 11/25/17 12/27/20 History omega-3 fatty acids 1,000 mg PO DAILY 11/25/17 12/27/20 History rosuvastatin [Crestor] 10 mg PO DAILY 11/25/17 12/27/20 History nebulizers #1 each NS 11/30/17 11/14/20 Rx Trelegy Ellipta INHALATION 09/30/20 11/14/20 History Oxygen #1 ea 10/25/20 11/14/20 History ipratropium 0.5 mg-albuterol 3 mg 3 ml INHALATION Q6H PRN 10/25/20 12/27/20 History (2.5 mg base)/3 mL nebulization soln Exam Const Nutritional Appearance: obese Orientation: alert, awake and oriented x3 Neck Lymphatic: no lymphadenopathy noted Resp Effort & Inspection: able to speak in complete sentences Auscultation: diminished lung sounds Cardio Jugular venous pressure: no JVD Rate: regular rate Rhythm: regular rhythm Heart Sounds: S1 normal and S2 normal GI Inspection: obesity Palpation: soft and no hepatosplenomegaly Auscultation: normal bowel sounds Skin General skin exam: other Other: large amount bruising in multiple areas, erythema, edema Neuro General: patient alert, patient awake and patient oriented x3 Cognition: normal cognition Speech: speech normal Extrem General: clubbing, cyanosis or edema noted and edema Laterality: left Results Labs Result diagrams: 12/28/20 06:10 12/27/20 22:40 Labs: Laboratory Results - last 24 hr 12/27/20 12/27/20 12/27/20 19:55 19:55 22:40 WBC 31.37 H* 26.03 H* RBC 3.41 L 3.26 L Hgb 11.7 11.1 L Hct 35.6 L 33.7 L MCV 104.4 H 103.4 H MCH 34.3 H 34.0 H MCHC 32.9 32.9 RDW 12.7 12.9 Plt Count 389 302 MPV 8.8 8.8 Immature Gran % 1.1 Neutrophils % 90.1 Lymphocytes % 3.9 Monocytes % 4.5 Eosinophils % 0.1 Basophils % 0.3 Nucleated RBC % 0 Absolute Neutrophils 28.26 H Absolute Lymphocytes 1.22 Absolute Monocytes 1.41 H Absolute Eosinophils 0.03 Absolute Basophils 0.09 RBC Morphology See Below Macrocytosis 3+ Sodium 134 L Potassium 5.1 Chloride 97 L Carbon Dioxide 25.8 Anion Gap 11.2 H BUN 39 H Creatinine 2.9 H Estimated GFR/1.73 m2 16.14 Glucose 436 H Calcium 9.4 Magnesium 2.1 Total Bilirubin 0.5 AST 24 ALT 19 Alkaline Phosphatase 104 Creatine Kinase 370 H Troponin I < 0.05 Total Protein 7.7 Albumin 3.2 L Urine Color Urine Clarity Urine pH Ur Specific [place] Urine Protein Urine Ketones Urine Blood Urine Nitrite Urine Bilirubin Urine Urobilinogen Ur Leukocyte Esterase Urine RBC Urine WBC Ur Epithelial Cells Urine Crystals Urine Bacteria Urine Casts Urine Mucus Urine Other Ur Culture Indicated? Urine Glucose 12/27/20 23:25 WBC RBC Hgb Hct MCV MCH MCHC RDW Plt Count MPV Immature Gran % Neutrophils % Lymphocytes % Monocytes % Eosinophils % Basophils % Nucleated RBC % Absolute Neutrophils Absolute Lymphocytes Absolute Monocytes Absolute Eosinophils Absolute Basophils RBC Morphology Macrocytosis Sodium Potassium Chloride Carbon Dioxide Anion Gap BUN Creatinine Estimated GFR/1.73 m2 Glucose Calcium Magnesium Total Bilirubin AST ALT Alkaline Phosphatase Creatine Kinase Troponin I Total Protein Albumin Urine Color Yellow Urine Clarity Clear Urine pH 6.0 Ur Specific [place] >= 1.030 H Urine Protein 100 H Urine Ketones Negative Urine Blood Moderate H Urine Nitrite Negative Urine Bilirubin Negative Urine Urobilinogen 0.2 Ur Leukocyte Esterase Negative Urine RBC 5-10 H Urine WBC 0-2 Ur Epithelial Cells Moderate Urine Crystals Moderate Amorphous Urine Bacteria Negative Urine Casts 10-20 Fine Granular Urine Mucus Negative Urine Other Mod Transitional Ur Culture Indicated? No Urine Glucose 100 Last Vital Signs Temp 36.4 C L 12/27/20 19:19 Pulse 86 12/27/20 20:31 Resp 16 12/27/20 20:40 BP 82/54 L 12/27/20 20:31 Pulse Ox 98 12/27/20 20:40 PAWSS Have you Been Recently Intoxicated or Drunk Within the Last 30 days?: No Have you Ever Experienced Previous Episodes of Alcohol Withdrawal?: No Have you ever Experienced Withdrawal Seizures?: No Have you ever Experienced Delirium Tremens(DT)s?: No Have you ever undergone Alcohol Rehabilitation Treatment (i.e, inpt ot outpatient treatment programs)?: No Have you ever Experienced Blackouts?: No Have you ever Combined Alcohol with other Downers within the last 90 days?: No Have you ever Combined Alcohol with any other Substance of Abuse during the last 90 days?: No Positive Blood Alcohol level on Presentation? [PCS.BAL]: No Evidence of Increased Autonomic Activity (i.e. HR>120, tremor, sweating, agitation, nausea)?: No Result: 0
[2020-12-27 23:54] LABS: Creatine Kinase 1914 U/L (26-192)
[2020-12-28] VITALS (7 sets, daily range): BP systolic 100–146; BP diastolic 54–75; PULSE 84–92; RESP 19–24; TEMP 36.6–37.2; O2SAT 94–99
--- NOTE | 2020-12-28 | DI.RAD_ITS ---
Exam(s) XR ANKLE RT COMPLETE XR TIB/FIB RT EXAM: XR ANKLE RT COMPLETE CLINICAL HISTORY: right ankle pain after fall TECHNIQUE: COMPARISON: CR XR TIB/FIB RT from 12/28/2020 CR XR TIB/FIB RT from 12/28/2020 FINDINGS: Three views of the ankle and four views of the leg were obtained. There is no evidence of acute frac ture. There is slight varus tilt of the talus. There is apparent slight anterior subluxation of the talus with respect to the tibia noted on the lateral view. Mild subchondral sclerosis noted at the tibiota lar joint and at the subtalar joints. IMPRESSION: Degenerative changes, question instability at tibiotalar joint, no evidence of acute fracture. RADIATION DOSE DELIVERED: Total DLP
--- NOTE | 2020-12-28 | DI.US_ITS ---
Exam(s) US LOWER EXTREMITY VENOUS LT EXAM: US LOWER EXTREMITY VENOUS LT CLINICAL HISTORY: traumatic fall. TECHNIQUE: Ultrasound performed using standard protocol. COMPARISON: US US ECHOCARDIOGRAM from 07/17/2020 FINDINGS: Duplex venous ultrasound was performed according to the usual protocol. The deep veins are freely com pressible throughout and there is normal flow augmentation with manual calf compression. 2D and Doppl er evaluation are unremarkable. Note is made of a Lema's cyst measuring about 4 x 3.6 x 1.8 cm in diameter. IMPRESSION: No evidence of deep venous thrombosis of the left lower extremity. DATA REPOSITORY:
[2020-12-28 00:51] LABS: Lactate 2.7 mmol/L (0.6-1.4)
[2020-12-28 00:59] LABS: Source Nasal/Nares
[2020-12-28] MEDS: Acetaminophen 325 MG TAB PO ×3 (01:14→20:02)
[2020-12-28] MEDS: Cyclobenzaprine 10 MG TAB PO ×3 (01:14→14:49)
[2020-12-28 01:31] LABS: COVID-19 PCR Negative (Negative)
[2020-12-28] MEDS: Lactated Ringers 1,000 ML 125 ML IV ×2 (02:39→12:36)
[2020-12-28] MEDS: traMADol 50 MG TAB PO ×4 (04:05→20:01)
[2020-12-28 07:38] LABS: Abs Immature Grans 0.08 10^3/uL (0.0-0.06); Absolute Basophil Count 0.02 10^3/uL (0.0-0.2); Absolute Monocyte Count 1.34 10^3/uL (0.1-0.8); Basophils % 0.1; HCT 31.5 % (36.0-46.0); HGB 10.4 g/dL (11.2-15.7); Immature Grans % 0.5; MCH 33.8 pg (27.0-33.0); MCV 102.3 fL (80-95); Monocytes % 8.1; Neutrophils % 85.3; Nucleated RBC 0 %; Platelet Count 285 10^3/uL (130-400); RBC 3.08 10^6/uL (3.93-5.22); RDW 12.9 % (11.7-14.6); RDW-SD 48.3 fL
[2020-12-28 07:45] LABS: Absolute Neutrophil Count 14.16 10^3/uL (1.2-6.7)
[2020-12-28] MEDS: MORPHine 2 MG/ML SYR IVP ×2 (07:56→17:07)
[2020-12-28] MEDS: Aspirin E.C. 81 MG TABEC PO (07:57)
[2020-12-28] MEDS: Cholecalciferol (Vitamin D3) 1,000 UNIT TAB 2000 UNITS PO (07:57)
[2020-12-28] MEDS: Escitalopram 20 MG TAB PO (07:57)
[2020-12-28] MEDS: Insulin Aspart 300 UNITS/3 ML PEN SC ×4 (08:06→21:45)
[2020-12-28 08:18] LABS: Anion Gap 7.5 mmol/L (3-11); BUN 44 mg/dL (7-18); CO2 29.5 mmol/L (21.0-32.0); CREATININE 2.8 mg/dL (0.55-1.02); Calcium 8.5 mg/dL (8.5-10.1); Chloride 98 mmol/L (98-107); Glucose 298 mg/dL (74-106); Potassium 4.3 mmol/L (3.5-5.1); Sodium 135 mmol/L (136-145)
[2020-12-28 08:47] LABS: Creatine Kinase 9887 U/L (26-192)
--- NOTE | 2020-12-28 09:09 | PDOC.CMIN ---
- If Service Date Differs Date of service: 12/28/20 Time of Service: 09:09 Care Management Initial Assess REASON FOR HOSPITALIZATION:: Traumatic fall, Leukocytosis PAST MEDICAL HISTORY/PAST SURGICAL HISTORY:: COPD with acute exacerbation. Depression. Tobacco use disorder PREVIOUS FUNCTIONAL STATUS/SOCIAL/FAMILY SUPPORTS:: Shira resides alone in [place], [place] with her two dogs; a boxer and a chihuahua. She has a daughter, Effie who resides in [place] and a Grandson, Camilo who resides in [place] as well as a healthy support network of friends per her report. 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 Shira is independent with all ADLs in the community. CURRENT FUNCTIONAL STATUS:: Shira appeared uncomfortable, being adjusted and moaning-RNs present and active x2 when CM attempted to meet Shira in the morning. In the afternoon, Shira was downstairs when CM went to see her. Chaplain Stephanie stated the daughter was seeking lifeline resources, CM UA provided resources to Effie. ADVANCE DIRECTIVES:: None on file at [facility]. Has patient been provided with info about the portal/API?: No Did the patient sign up for the portal?: No CODE STATUS:: Full Code INSURANCE COVERAGE / FINANCIAL ISSUES:: [facility] CURRENT HOME/COMMUNITY SERVICES/EQUIPMENT:: None, currently. PRIMARY CARE PHYSICIAN:: Liliam Noble POTENTIAL DISCHARGE NEEDS:: Follow up appointments, evaluated for additional needs. PATIENT/FAMILY EDUCATION NEEDS:: Review discharge instructions, discuss Ask Me Three. ANTICIPATED BARRIERS TO DISCHARGE:: None identified. TRANSPORTATION:: Via private vehicle with family. PLAN:: Shira will return home when ready per MD. She will follow up with his PCP and plan of care as prescribed. She will transport via private vehicle with family. CM will continue to follow and support discharge planning considerations.
[2020-12-28] MEDS: Enoxaparin 30 MG/0.3 ML SYR SC (09:30)
[2020-12-28] MEDS: Lactated Ringers 1,000 ML 1000 ML IV (09:30)
--- NOTE | 2020-12-28 11:51 | PT.INIE ---
Date of service: 12/28/20 Time of Service: 11:51 PT Notes Visit Reasons: TRAUMATIC FALL, LEUKOCYTOSIS Physical Therapy Inpatient Initial Evaluation Date: 12/28/2020 Referring Doctor: Triny Mina NP PT Orders: PT CONSULT: Eval/Treat. Precautions: Fall. Standard. Activity as tolerated. Patient Profile/Admitting Diagnosis: Shira is a 70-year-old female who presented to the ED on 12/27/2020 due to a fall. Patient is diagnosed medical injury of left LE and is currentlyy placed on DVT prophylaxis PMHX: Medical History COPD with acute exacerbation Depression Tobacco abuse Social History/Home Situation: Lives alone. Did not use any assistive device for all mobility ADLs prior to this admission. Equipment Owned/DME: None Subjective: Complains of severe pain in B lower extremities with movement. Reports B leg muscles going into spasms with movement. Declines any out of bed activities stating that she will go into crazy spasms and pain if she does. Per Nurse Sandhya, patient has had all prescribed pain medications and may have anxiety driven pain at this time preventing her from attempting to move. Objective: General Observation: In mild distress. Highly anxious about moving B lower extremities. Mental Status: Alert and oriented as to person, place, time, and purpose. Able to pay attention, focus, and respond appropriately. Pain: 10/10 in B legs and feet ROM: Right Upper Extremity: Shoulder Flexion WFL. Shoulder abduction WFL. Elbow flexion WFL. Wrist flexion WFL. Functional opening and closing of hand WFL. Left Upper Extremity: Shoulder Flexion WFL. Shoulder abduction WFL. Elbow flexion WFL. Wrist flexion WFL. Functional opening and closing of hand WFL. Right Lower Extremity: Able to slide heel to about 30 degrees of hip and knee flexion bit hamstring goes into painful spasms. Unable to dorsiflex at the ankle and unable to extend toes due to pain. Left Lower Extremity: Hip flexion WFL. Hip abduction WFL. Knee flexion WFL. Ankle dorsiflexion WFL. Ankle plantarflexion WFL. Strength: Right Upper Extremity: Shoulder flexors 4-/5. Shoulder abductors 4-/5. Elbow flexors 4-/5. Elbow extensors 4-/5. Desulphurizer Operator strong. Left Upper Extremity: Shoulder flexors 4-/5. Shoulder abductors 4-/5. Elbow flexors 4-/5. Elbow extensors 4-/5. Desulphurizer Operator strong. Right Lower Extremity: Hip flexors grossly 3-/5. Hip abductors grossly 3-/5. Knee flexors grossly 3-/5. Knee extensors grossly 3-/5. Ankle dorsiflexors 1/5. Ankle plantarflexors 1/5. Left Lower Extremity: Hip flexors grossly 3-/5. Hip abductors grossly 3-/5. Knee flexors grossly 3-/5. Knee extensors grossly 3-/5. Ankle dorsiflexors grossly 3/5. Ankle plantarflexors grossly 3 /5. Bed Mobility/Transfers: Unable to assess bed mobility due to safety issues, high patient anxiety, and 10/10 pain level. Will reassess once pain level is very much controlled. Gait: Unable to assess bed mobility due to safety issues, high patient anxiety, and 10/10 pain level. Will reassess once pain level is very much controlled. Balance: Unable to assess bed mobility due to safety issues, high patient anxiety, and 10/10 pain level. Will reassess once pain level is very much controlled. Special Tests: Mobility Limitations Standardized Measure [facility] AM-PAC 6 clicks Basic Mobility Inpatient Short Form: Raw Score: 6 CMS Score: 100% deficit Informed Consent/Education: Patient was instructed in purpose of PT consult and plan of care. Agreeable to proceed with established PT POC to achieve personal goals. Assessment: High anxiety and severe pain accompanied by muscle guarding limited today's mobility assessment. Nurse Sandhya aware of pain complaint. Patient is unable to dorsiflex at the ankle and extend toes on the R side. Will reach out to hospitalist regarding possible need for x-ray and or orthopedic consult to R ankle/leg before attempting tranfer/gait retraining to rule out fracture/dislocation. May be able to stand pivot transfer using L LE with assist of 2 if pain level is controlled. 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 Patient presents with clinical signs and symptoms consistent with current/admitting diagnoses that have resulted to mobility limitations, gait instability, generalized weakness, and overall ADL decline as demonstrated by the following impairment level findings: 1. Decreased strength to B LE major muscle groups 2. High anxiety over moving B LE due to pain level 3. Pain in B LE at 10/10 Impairments are contributing to the following functional limitations: 1. Inability to participate in mobility assessment due to pain 2. Inability to get out of bed due to pain Patient is assessed as a 18527 high complexity based on the following: History: 70-year-old female with past medical history as indicated above Examination: Demonstrable impairment in strength, balance, and mobility level with underlying impairments and functional limitations as exhibited above as well as deficit score of 100% utilizing the [facility] Mobility Inpatient Short Form Presentation: Evolving Decision Makin high complexity Goals: Goals X1 week 1. Supine-Sit CGA 2. Sit-Supine CGA 3. Sit-Stand CGA 4. Stand-Sit CGA 5. Bed-Chair CGA 6. Chair-Bed CGA 7. Independent gait on level surface with use of FWW for at least 30 feet without report of pain nor dyspnea 8. Independent stair negotiation while holding onto B rails for at least 5 steps without report of pain nor dyspnea 9. Fair static and dynamic standing balance/tolerance Plan of Care/Treatment Plan: 1-2x/day, 7 days/week x 1 week. Plan of care has been reviewed with the RETORT FURNACE OPERATOR providing the service under Physical Therapy direction. Initiate Physical Therapy intervention for pain management as needed, strengthening, bed mobility, transfers, gait, stairs, balance training, and use of assistive device. DISCHARGE RECOMMENDATIONS: Patient will benefit from jail facility placement for continued skilled physical therapy services in order to progress mobility level, strength, and balance in preparation for a safe discharge to home. TREATMENT CODE/TIME: 59367 x 24 minutes beginning at 11:51 AM. Thank you for the opportunity to participate in the care of this patient. Neelam Gan PT, DPT, CLT [facility] [place], [place]
[2020-12-28] MEDS: Ondansetron 4 MG/2 ML VIAL IVP (12:30)
--- NOTE | 2020-12-28 12:33 | W.INDIABCONS ---
Date of service: 12/28/20 Time of Service: 12:33 Diabetes Inpatient Consult DESCRIPTION/ASSESSMENT: Visited Ms. Kelly to discuss how she manages her diabetes at home. She was weepy as she verbalized that she was very physically uncomfortable. She states she has no appetite right now and is just working on being able to eat. Her recent A1C is 6.8 c/w glycemic management at target. Her blood sugars here have been above target. She is on correction insulin only at this time. Ms. Kelly's BMI is 49.6 kg/m2 c/w class 3 severe obesity. INTERVENTION: Encouraged Ms. Kelly to let me or nursing staff know if and when she is ready to review her DSMES. I also encouraged her to come see the as an outpatient for DSMES and weight management. She verbalized that she is willing to let us know. Will provide Glucerna supplements with meals for now while she is having difficulty eating. As blood sugars are not at target, she may benefit from mealtime insulin as well as sliding scale. PLAN: Will monitor tolerance to Glucerna supplements. Will follow up with Ms. Kelly regarding her diabetes education needs. Time Spent in Nutritional Counseling and Treatment: 10 minutes
--- NOTE | 2020-12-28 14:51 | CHAPLAIN ---
Shira was out of the room when I stopped in, getting xrays, according to her daughter. Her daughter recounted Shira's accident, falling through a porch floor and being stuck there for a few hours until a neighbor heard her calling. EMS had to cut away some of the honorio to get Shira unstuck. Her daughter said Shira's biggest complaint now is muscle cramps in her legs. She has them at home, but not to this extend, her daughter said. She is thinking bringing her mom's OTC cream that Shira usually finds very helpful at night. Shira's daughter asked for information about [facility], so I left Care Management know about that request.
[2020-12-28 14:57] LABS: Lactate 1.2 mmol/L (0.6-1.4)
[2020-12-28] MEDS: Lactated Ringers 1,000 ML 2000 ML IV (15:14)
[2020-12-28 16:00] LABS: Creatine Kinase > 10000 U/L (26-192)
[2020-12-28] MEDS: Lactated Ringers 1,000 ML 200 ML IV (21:44)
[2020-12-28] MEDS: Insulin Glargine 300 UNITS/3 ML PEN SC (21:46)
--- NOTE | 2020-12-28 22:12 | W.ORTHOCONSU ---
Date of service: 12/28/20 Time of Service: 13:12 History of Present Illness History of Present Illness Chief Complaint: Bilateral Leg Pain Narrative: Shira is a 70-year-old who unfortunately fell through her porch yesterday. Her left leg fell to the porch landing on the ground some feet below it with the right leg extended behind her. She felt that her right ankle was maximally plantarflexed and the left leg was trapped around the level of the knee and thigh. She is unable to get out on her own and eventually was extricated by EMS. She is seen in the emergency department with notable leukocytosis, elevated creatinine kinase, acute kidney injury, and pain. She was admitted to the hospital service for management. She reports continued pain about the legs, worse around the left distal thigh and left knee and the right foot and ankle. She denies any significant preinjury issues with either. She denies any twisting or turning while her leg was planted in the porch. She denies any head trauma. She currently reports diffuse numbness about the left foot and leg and severe pain with any attempted motion of the right ankle. Consults Consult date: 12/28/20 Requesting physician: Triny Mina Consult Reason Bilateral Leg Pain Assessment and Plan Assessment and plan (1) Rhabdomyolysis: Status: Acute Assessment and plan: Shira is a 70-year-old who unfortunate was not trapped in her front porch for almost 3 hours. I think the largest issue here is rhabdomyolysis. She has an increasing creatinine kinase, areas of ecchymosis about the left leg with some swelling and a traumatic history which would predispose her to this injury. Especially involving the thigh, there is a significant amount of muscle which can be involved and thus cause quite high levels of creatinine kinase. While she has ecchymosis and swelling I do not see anything orthopedic of concern. She is able to straight leg raise which confirmed the extensor mechanism is intact without any significant muscle or tendon involvement which would need surgical intervention. Her compartments are soft and there is no sign of compartment syndrome although she can has significant pain from the reperfusion type event. However, I see no indication at this point for any other intervention from orthopedics. Qualifiers: Rhabdomyolysis type: traumatic Encounter type: initial encounter Qualified Code(s): T79.6XXA - Traumatic ischemia of muscle, initial encounter (2) Right ankle injury: Status: Acute Assessment and plan: Shira continues have significant right ankle pain. This ankle was held in a plantarflexed position against the porch for for some time. My suspicion is that she simply has a strain about the right ankle due to the positioning. The x-rays do not show fracture. Her exam is consistent with pain but once again no sign of true injury that I can detect. A fracture walker boot could be considered to assist with her ability to mobilize this also may throw off her balance not be worth that either. She should use a walker for any attempted ambulation at this point. Unfortunately, her habitus and deconditioned state is going to limit progression with weightbearing. Qualifiers: Encounter type: initial encounter Qualified Code(s): S99.911A - Unspecified injury of right ankle, initial encounter (3) Traumatic injury of left lower extremity: Status: Acute Assessment and plan: As for the left leg, she obviously was entrapped through the floor against her left thigh and knee. Given the exam and what I see with the labs, this likely cause some local muscle damage within the thigh itself. However, there is no notable tendon, ligament, or bony injury that I can detect. At this point conservative measures are still the best choice with the use of ice and medications to control pain obviously anti-inflammatories would be ideal but not well kidney function has acutely worsened. Unfortunately, at this point for both the left and the right leg a slow, cautious approach is the best. I do not think any knee immobilizer brace to be beneficial, especially with her habitus. And ambulation should be with the use of a walker. I see no reason not to attempt ambulation weightbearing although it may take some time for this to improve given the obvious rhabdomyolysis was happened which will cause muscle pain with use. Qualifiers: Encounter type: initial encounter Qualified Code(s): S89.92XA - Unspecified injury of left lower leg, initial encounter Review of Systems All systems reviewed & are unremarkable except as noted in HPI and below PFSH Medical History COPD with acute exacerbation Depression Tobacco abuse Social History Smoking/Tobacco Use Status: Former Tobacco Use Smoking risk assessment performed?: Yes Alcohol Intake: current Alcohol Intake frequency: holidays/special occasions only Drug use: Never Do you feel safe at home: Yes (declines assistance) Do you feel safe in your relationship?: Yes Exam Const General: cooperative and no acute distress Nutritional Appearance: obese morbidly obese Orientation: alert, awake and oriented x3 Extrem Other: Evaluation of the left leg shows areas of ecchymosis about the thigh, distal thigh, and knee. There is some generalized edema about the left leg but all compartments are quite compressible. The leg is soft. No clear effusion. Generalized discomfort with palpation about the left leg but no point discomfort at the joint line. The knee is stable to varus and valgus stress. Anterior posterior drawer is extremely challenging given the patient habitus and positioning within the bed. There is ecchymosis seen throughout the left leg but no area of fluctuance or ulceration. In general, all palpation and motions cause some local discomfort but without any one area more than others. No defect palpated down the thigh or the leg. She is able demonstrate active dorsiflexion plantarflexion of the left ankle as well as extension and flexion of the great toe. She endorses some somewhat decreased sensation throughout the leg but in no specific dermatomal pattern. Grossly intact to light touch over the deep and superficial peroneal nerve and tibial nerve. Palpable DP pulse. Evaluation of the right leg does not demonstrate significant ecchymosis. There is some excoriation and petechiae seen about the distal aspect of the right foot with some abrasions which appear more chronic in nature. Mild edema about the right leg. The right foot is held in a plantarflexed position. She does have pain with any attempts at active range of motion although she is able to demonstrate faint ankle dorsiflexion and great toe extension. Passively, she has pain with any passive motion of the right ankle. Palpation throughout the forefoot midfoot hindfoot is somewhat less painful but palpation around the ankle, especially anteriorly, causes pain. Mild pain along the right leg. No significant pain about the right knee. No knee effusion. No pain along the joint lines. The right knee is stable to varus and valgus stress. Once again, some somewhat decreased sensation globally about the right foot but no specific dermatomal pattern and gross intact sensation over the deep and superficial peroneal nerves and tibial nerve. Palpable DP pulse. Results Last Vital Signs Temp 36.6 C 12/28/20 15:34 Pulse 85 12/28/20 15:34 Resp 20 12/28/20 15:34 BP 105/71 12/28/20 15:34 Pulse Ox 96 12/28/20 15:34 Labs Result diagrams: 12/28/20 06:10 12/28/20 06:10 Labs: Laboratory Results - last 24 hr 12/27/20 12/27/20 12/27/20 00:30 22:40 22:40 WBC RBC Hgb Hct MCV MCH MCHC RDW Plt Count MPV Immature Gran % Neutrophils % Lymphocytes % Monocytes % Eosinophils % Basophils % Nucleated RBC % Absolute Neutrophils Absolute Lymphocytes Absolute Monocytes Absolute Eosinophils Absolute Basophils VBG Lactate Sodium 135 L Potassium 4.5 Chloride 100 Carbon Dioxide 29.4 Anion Gap 5.6 BUN 42 H Creatinine 2.8 H Estimated GFR/1.73 m2 16.80 Glucose 360 H Calcium 9.0 Creatine Kinase 1914 H Troponin I 0.05 Urine Color Urine Clarity Urine pH Ur Specific Stanley Urine Protein Urine Ketones Urine Blood Urine Nitrite Urine Bilirubin Urine Urobilinogen Ur Leukocyte Esterase Urine RBC Urine WBC Ur Epithelial Cells Urine Crystals Urine Bacteria Urine Casts Urine Mucus Urine Other Ur Culture Indicated? Urine Glucose COVID-19 Source Nasal/Nares SARS-CoV-2 (PCR) Negative 12/27/20 12/27/20 12/28/20 22:40 23:25 00:30 WBC 26.03 H* RBC 3.26 L Hgb 11.1 L Hct 33.7 L MCV 103.4 H MCH 34.0 H MCHC 32.9 RDW 12.9 Plt Count 302 MPV 8.8 Immature Gran % Neutrophils % Lymphocytes % Monocytes % Eosinophils % Basophils % Nucleated RBC % Absolute Neutrophils Absolute Lymphocytes Absolute Monocytes Absolute Eosinophils Absolute Basophils VBG Lactate 2.7 H* Sodium Potassium Chloride Carbon Dioxide Anion Gap BUN Creatinine Estimated GFR/1.73 m2 Glucose Calcium Creatine Kinase Troponin I Urine Color Yellow Urine Clarity Clear Urine pH 6.0 Ur Specific Stanley >= 1.030 H Urine Protein 100 H Urine Ketones Negative Urine Blood Moderate H Urine Nitrite Negative Urine Bilirubin Negative Urine Urobilinogen 0.2 Ur Leukocyte Esterase Negative Urine RBC 5-10 H Urine WBC 0-2 Ur Epithelial Cells Moderate Urine Crystals Moderate Amorphous Urine Bacteria Negative Urine Casts 10-20 Fine Granular Urine Mucus Negative Urine Other Mod Transitional Ur Culture Indicated? No Urine Glucose 100 COVID-19 Source SARS-CoV-2 (PCR) 12/28/20 12/28/20 12/28/20 06:10 06:10 14:46 WBC 16.60 H D RBC 3.08 L Hgb 10.4 L Hct 31.5 L MCV 102.3 H MCH 33.8 H MCHC 33.0 RDW 12.9 Plt Count 285 MPV 9.0 Immature Gran % 0.5 Neutrophils % 85.3 Lymphocytes % 6.0 Monocytes % 8.1 Eosinophils % 0.0 Basophils % 0.1 Nucleated RBC % 0 Absolute Neutrophils 14.16 H Absolute Lymphocytes 1.00 L Absolute Monocytes 1.34 H Absolute Eosinophils 0.00 Absolute Basophils 0.02 VBG Lactate Sodium 135 L Potassium 4.3 Chloride 98 Carbon Dioxide 29.5 Anion Gap 7.5 BUN 44 H Creatinine 2.8 H Estimated GFR/1.73 m2 16.80 Glucose 298 H Calcium 8.5 Creatine Kinase 9887 H > 95256 H Troponin I Urine Color Urine Clarity Urine pH Ur Specific Stanley Urine Protein Urine Ketones Urine Blood Urine Nitrite Urine Bilirubin Urine Urobilinogen Ur Leukocyte Esterase Urine RBC Urine WBC Ur Epithelial Cells Urine Crystals Urine Bacteria Urine Casts Urine Mucus Urine Other Ur Culture Indicated? Urine Glucose COVID-19 Source SARS-CoV-2 (PCR) 12/28/20 14:46 WBC RBC Hgb Hct MCV MCH MCHC RDW Plt Count MPV Immature Gran % Neutrophils % Lymphocytes % Monocytes % Eosinophils % Basophils % Nucleated RBC % Absolute Neutrophils Absolute Lymphocytes Absolute Monocytes Absolute Eosinophils Absolute Basophils VBG Lactate 1.2 Sodium Potassium Chloride Carbon Dioxide Anion Gap BUN Creatinine Estimated GFR/1.73 m2 Glucose Calcium Creatine Kinase Troponin I Urine Color Urine Clarity Urine pH Ur Specific Stanley Urine Protein Urine Ketones Urine Blood Urine Nitrite Urine Bilirubin Urine Urobilinogen Ur Leukocyte Esterase Urine RBC Urine WBC Ur Epithelial Cells Urine Crystals Urine Bacteria Urine Casts Urine Mucus Urine Other Ur Culture Indicated? Urine Glucose COVID-19 Source SARS-CoV-2 (PCR) Imaging Imaging Studies: X-ray of the left femur was reviewed. This shows no sign of fracture. No suspicious lesions. X-ray of the left knee was reviewed. This shows some mild degenerative changes but no fracture. No dislocation. X-ray of the right knee was reviewed. And once again this demonstrates degenerative changes most of the medial compartment but no suspicious lesion and no fracture. No dislocation. X-ray of the right tib-fib once again it shows no sign of fracture. No suspicious lesions. X-ray of the right ankle shows foot in a severely plantarflexed position. There is the appearance of some anterior subluxation of the talus but I think this is positional given the position of the foot and a slight skew with the x-ray and overlap of the talus. Talus is well centered on the AP view. No fracture. No suspicious lesions.
[2020-12-29] MEDS: MORPHine 2 MG/ML SYR IVP (00:42)
[2020-12-29] MEDS: traMADol 50 MG TAB PO ×2 (00:45→07:54)
[2020-12-29] MEDS: Normal Saline Flush 10 ML SYR IVP (00:45)
[2020-12-29 00:56] VITALS: O2SAT 87; O2SAT 89
[2020-12-29 01:06] VITALS: O2SAT 93
[2020-12-29] MEDS: Lactated Ringers 1,000 ML 200 ML IV ×3 (03:23→23:46)
[2020-12-29 07:37] LABS: Lactate 1.1 mmol/L (0.6-1.4)
[2020-12-29 07:41] LABS: Abs Immature Grans 0.05 10^3/uL (0.0-0.06); Absolute Basophil Count 0.03 10^3/uL (0.0-0.2); Absolute Monocyte Count 1.23 10^3/uL (0.1-0.8); Basophils % 0.2; Eosinophils % 1.2; HCT 26.8 % (36.0-46.0); HGB 9.1 g/dL (11.2-15.7); Immature Grans % 0.4; Lymphocytes % 11.6; MCH 33.8 pg (27.0-33.0); MCV 99.6 fL (80-95); MPV 8.9 fL (8.0-11.0); Monocytes % 8.9; Neutrophils % 77.7; Nucleated RBC 0 %; RBC 2.69 10^6/uL (3.93-5.22); RDW 13.1 % (11.7-14.6); RDW-SD 47.1 fL; WBC 13.81 10^3/uL (4.4-10.8)
[2020-12-29 07:44] LABS: Absolute Eosinophil Count 0.17 10^3/uL (0.0-0.7); Absolute Neutrophil Count 10.73 10^3/uL (1.2-6.7)
[2020-12-29 07:48] LABS: Anion Gap 7.8 mmol/L (3-11); BUN 49 mg/dL (7-18); CO2 27.2 mmol/L (21.0-32.0); CREATININE 2.8 mg/dL (0.55-1.02); Calcium 8.3 mg/dL (8.5-10.1); Chloride 101 mmol/L (98-107); Glucose 150 mg/dL (74-106); Potassium 4.8 mmol/L (3.5-5.1); Sodium 136 mmol/L (136-145)
[2020-12-29] MEDS: Cholecalciferol (Vitamin D3) 1,000 UNIT TAB 2000 UNITS PO (07:54)
[2020-12-29] MEDS: Aspirin E.C. 81 MG TABEC PO (07:54)
[2020-12-29] MEDS: Insulin Aspart 300 UNITS/3 ML PEN SC ×4 (07:55→21:32)
[2020-12-29] MEDS: Escitalopram 20 MG TAB PO (07:55)
[2020-12-29 07:59] VITALS: BP 91/68; PULSE 86; RESP 14; TEMP 36.8; O2SAT 98
[2020-12-29 07:59] LABS: Platelet Count 255 10^3/uL (130-400)
[2020-12-29] MEDS: Cyclobenzaprine 10 MG TAB PO ×3 (08:54→23:55)
--- NOTE | 2020-12-29 09:23 | PT.INTREAT ---
PT Notes Visit Reasons: TRAUMATIC FALL, LEUKOCYTOSIS 12/29/2020 SUBJECTIVE: Pt notes being nervous to move because she is afraid of increasing her pain. R ankle seems to be most aggravated at this point. L knee and thigh is uncomfortable as well. OBJECTIVE: TRANSFERS Supine to sit: Mod A x 1 Sit to supine: Mod A x 2 Sit to stand: Mod A x 2 stand to sit: Mod A x 2 Scooting up in bed: Max x 2 GAIT: unable- pt does stand for 30 seconds with majority of her weight on the L LE THEREX: AROM bilateral LE's as noted on flow sheet. ASSESSMENT: Pt very anxious to move although with encouragement she does so quite well considering her mechanism of injury. She will need to progress through weight bearing and gait slowly and to her tolerance. PLAN: Continue AROM/strengthening of the LE's, progress weight bearing R LE to tolerance and eventually functional gait with FWW Direct time: 45 minutes Total time: 45 minutes([id number]) Nalini Major PTA Clinic location: [facility] [place], [place]
[2020-12-29 09:38] LABS: Creatine Kinase 8510 U/L (26-192)
--- NOTE | 2020-12-29 10:20 | W.PM.PROGNOT ---
Date of Service Date of service: 12/29/20 Time of Service: 09:00 Assessment and Plan Assessment and plan (1) Rhabdomyolysis: Start date: 12/29/20 Start time: 09:00 Status: Acute Assessment and plan: Rhabdo with CPK greater than 10K, up from admission when it was 300's. Today trending down now in 8K renal function still elevated will give a dose of lasix and repeat lab work at 1300 to trend renal function with cpk. D/c IVF at cpk of under 1000 Qualifiers: Rhabdomyolysis type: traumatic Encounter type: initial encounter Qualified Code(s): T79.6XXA - Traumatic ischemia of muscle, initial encounter (2) Acute kidney injury: Start date: 12/29/20 Start time: 09:00 Status: Acute Assessment and plan: as above (3) Traumatic injury of left lower extremity: Start date: 12/29/20 Start time: 09:00 Status: Acute Assessment and plan: continues to have pain. Tramadol and morphine prn, for pain. will apply brace to Right ankle Qualifiers: Encounter type: initial encounter Qualified Code(s): S89.92XA - Unspecified injury of left lower leg, initial encounter (4) Right ankle injury: Start date: 12/29/20 Start time: 09:00 Status: Acute Assessment and plan: from traumatic fall, with instability of joint will apply brace and work with PT. Will likely need SNIF placement. Qualifiers: Encounter type: initial encounter Qualified Code(s): S99.911A - Unspecified injury of right ankle, initial encounter (5) COPD (chronic obstructive pulmonary disease): Start date: 12/29/20 Start time: 09:00 Status: Chronic Assessment and plan: At baseline will continue home medication Qualifiers: COPD type: emphysema Emphysema type: centrilobular Qualified Code(s): J43.2 - Centrilobular emphysema (6) Hypertension: Start date: 12/29/20 Start time: 09:00 Status: Chronic Assessment and plan: meds with parameters (7) Tobacco abuse: Start date: 12/29/20 Start time: 09:00 Status: Chronic Assessment and plan: nicotine replacement as needed (8) Diabetes mellitus: Start date: 12/29/20 Start time: 09:00 Status: Chronic Assessment and plan: hold orals SSI as she insulin naive (9) DVT prophylaxis: Start date: 12/29/20 Start time: 09:00 Status: Acute Assessment and plan: Enoxaparin discussed with Dr. Montes Subjective Subjective Patient reports: still having pain Interval history since last seen: Patient continues to have pain in her leg improving. CPK is improving, BUN and Creatinine are the same. Will give a dose of lasix to try to improve. Right of right tib/fib revealing instability of xray revealing instability at tibiotalar joint due to sublaxation. no evidence of fx. Will place in stabilizing ankle wrap. Continue IVF at this time. Repeat labs this afternoon will dc IV hydration when CPK under 1000. Exam Const Nutritional Appearance: obese Orientation: alert, awake and oriented x3 Eyes General: appearance normal, both eyes and all related structures Pupils: PERRL EOM: EOM intact bilaterally Neck Lymphatic: no lymphadenopathy noted Resp Effort & Inspection: able to speak in complete sentences Auscultation: diminished lung sounds Cardio Jugular venous pressure: no JVD Rate: regular rate Rhythm: regular rhythm Heart Sounds: S1 normal and S2 normal GI Inspection: obesity Palpation: soft and no hepatosplenomegaly Auscultation: normal bowel sounds Skin General skin exam: other Neuro General: patient alert, patient awake and patient oriented x3 Cognition: normal cognition Speech: speech normal Extrem General: clubbing, cyanosis or edema noted and edema Laterality: left Right lower extremity: ankle (pain with flexion) Details: edema and foot Left lower extremity: normal to inspection and edema Objective Last Vital Signs Temp 36.8 C 12/29/20 07:59 Pulse 86 12/29/20 07:59 Resp 14 12/29/20 07:59 BP 91/68 L 12/29/20 07:59 Pulse Ox 98 12/29/20 07:59 Laboratory Results - last 24 hr 12/28/20 12/28/20 12/29/20 14:46 14:46 07:28 WBC RBC Hgb Hct MCV MCH MCHC RDW Plt Count MPV Immature Gran % Neutrophils % Lymphocytes % Monocytes % Eosinophils % Basophils % Nucleated RBC % Absolute Neutrophils Absolute Lymphocytes Absolute Monocytes Absolute Eosinophils Absolute Basophils VBG Lactate 1.2 1.1 Sodium Potassium Chloride Carbon Dioxide Anion Gap BUN Creatinine Estimated GFR/1.73 m2 Glucose Calcium Magnesium Creatine Kinase > 58607 H 12/29/20 12/29/20 12/29/20 07:28 07:28 08:48 WBC 13.81 H RBC 2.69 L Hgb 9.1 L Hct 26.8 L MCV 99.6 H MCH 33.8 H MCHC 34.0 RDW 13.1 Plt Count 255 MPV 8.9 Immature Gran % 0.4 Neutrophils % 77.7 Lymphocytes % 11.6 Monocytes % 8.9 Eosinophils % 1.2 Basophils % 0.2 Nucleated RBC % 0 Absolute Neutrophils 10.73 H Absolute Lymphocytes 1.60 Absolute Monocytes 1.23 H Absolute Eosinophils 0.17 Absolute Basophils 0.03 VBG Lactate Sodium 136 Potassium 4.8 Chloride 101 Carbon Dioxide 27.2 Anion Gap 7.8 BUN 49 H Creatinine 2.8 H Estimated GFR/1.73 m2 16.80 Glucose 150 H D Calcium 8.3 L Magnesium 2.0 Creatine Kinase 8510 H PAWSS Have you Been Recently Intoxicated or Drunk Within the Last 30 days?: No Have you Ever Experienced Previous Episodes of Alcohol Withdrawal?: No Have you ever Experienced Withdrawal Seizures?: No Have you ever Experienced Delirium Tremens(DT)s?: No Have you ever undergone Alcohol Rehabilitation Treatment (i.e, inpt ot outpatient treatment programs)?: No Have you ever Experienced Blackouts?: No Have you ever Combined Alcohol with other Downers within the last 90 days?: No Have you ever Combined Alcohol with any other Substance of Abuse during the last 90 days?: No Positive Blood Alcohol level on Presentation? [PCS.BAL]: No Evidence of Increased Autonomic Activity (i.e. HR>120, tremor, sweating, agitation, nausea)?: No Result: 0
[2020-12-29] MEDS: Enoxaparin 30 MG/0.3 ML SYR SC (10:28)
[2020-12-29] MEDS: Furosemide 40 MG/4 ML VIAL IVP (10:29)
--- NOTE | 2020-12-29 11:06 | W.PM.PROGNOT ---
Date of Service Date of service: 12/28/20 Time of Service: 09:00 Assessment and Plan Assessment and plan (1) Rhabdomyolysis: Start date: 12/28/20 Start time: 09:00 Status: Acute Assessment and plan: Rhabdo with CPK climbing, up from admission was in 300's. Continue to trend Increase IVF to 200 and will give 2 L bolus hold statin Qualifiers: Rhabdomyolysis type: traumatic Encounter type: initial encounter Qualified Code(s): T79.6XXA - Traumatic ischemia of muscle, initial encounter (2) Acute kidney injury: Start date: 12/28/20 Start time: 09:00 Status: Acute Assessment and plan: avoid nephrotoxic medications and monitor labs (3) Traumatic injury of left lower extremity: Start date: 12/28/20 Start time: 09:00 Status: Acute Assessment and plan: continues to have pain. Tramadol and morphine prn, for pain. consult ortho PT consutl Qualifiers: Encounter type: initial encounter Qualified Code(s): S89.92XA - Unspecified injury of left lower leg, initial encounter (4) Right ankle injury: Start date: 12/28/20 Start time: 09:00 Status: Acute Assessment and plan: c/o pain, slight dorsiflexion will have ortho eval Qualifiers: Encounter type: initial encounter Qualified Code(s): S99.911A - Unspecified injury of right ankle, initial encounter (5) COPD (chronic obstructive pulmonary disease): Start date: 12/28/20 Start time: 09:00 Status: Chronic Assessment and plan: At baseline will continue home medication Qualifiers: COPD type: emphysema Emphysema type: centrilobular Qualified Code(s): J43.2 - Centrilobular emphysema (6) Hypertension: Start date: 12/28/20 Start time: 09:00 Status: Chronic Assessment and plan: meds with parameters (7) Tobacco abuse: Start date: 12/28/20 Start time: 09:00 Status: Chronic Assessment and plan: nicotine replacement as needed (8) Diabetes mellitus: Start date: 12/28/20 Start time: 09:00 Status: Chronic Assessment and plan: hold orals SSI as she insulin naive (9) DVT prophylaxis: Start date: 12/28/20 Start time: 09:00 Status: Acute Assessment and plan: Enoxaparin discussed with Dr. Brewer Subjective Subjective Patient reports: still having pain Interval history since last seen: Middle aged female lying in bed in severe pain, on her side. having problems with dorsi flexion, CPK is rising she is in rhabdo, up from admission will trend throughout the day. up to over 900 and climbing. increase IVF to 200 and will give 2 L bolus. Per uptodate Loop diuretics are not recommended unless patients are volume overloaded and she is not. Consult ortho for leg, PT consult and continue to monitor labs Exam Const Nutritional Appearance: obese Orientation: alert, awake and oriented x3 Eyes General: appearance normal, both eyes and all related structures Pupils: PERRL EOM: EOM intact bilaterally Neck Lymphatic: no lymphadenopathy noted Resp Effort & Inspection: able to speak in complete sentences Auscultation: diminished lung sounds Cardio Jugular venous pressure: no JVD Rate: regular rate Rhythm: regular rhythm Heart Sounds: S1 normal and S2 normal GI Inspection: obesity Palpation: soft and no hepatosplenomegaly Auscultation: normal bowel sounds Skin General skin exam: other Neuro General: patient alert, patient awake and patient oriented x3 Cognition: normal cognition Speech: speech normal Extrem General: clubbing, cyanosis or edema noted and edema Laterality: left Right lower extremity: ankle (pain with flexion) Details: edema and foot Left lower extremity: normal to inspection and edema Objective Last Vital Signs Temp 36.8 C 12/29/20 07:59 Pulse 86 12/29/20 07:59 Resp 14 12/29/20 07:59 BP 91/68 L 12/29/20 07:59 Pulse Ox 98 12/29/20 07:59 Laboratory Results - last 24 hr 12/28/20 12/28/20 12/29/20 14:46 14:46 07:28 WBC RBC Hgb Hct MCV MCH MCHC RDW Plt Count MPV Immature Gran % Neutrophils % Lymphocytes % Monocytes % Eosinophils % Basophils % Nucleated RBC % Absolute Neutrophils Absolute Lymphocytes Absolute Monocytes Absolute Eosinophils Absolute Basophils VBG Lactate 1.2 1.1 Sodium Potassium Chloride Carbon Dioxide Anion Gap BUN Creatinine Estimated GFR/1.73 m2 Glucose Calcium Magnesium Creatine Kinase > 69805 H 12/29/20 12/29/20 12/29/20 07:28 07:28 08:48 WBC 13.81 H RBC 2.69 L Hgb 9.1 L Hct 26.8 L MCV 99.6 H MCH 33.8 H MCHC 34.0 RDW 13.1 Plt Count 255 MPV 8.9 Immature Gran % 0.4 Neutrophils % 77.7 Lymphocytes % 11.6 Monocytes % 8.9 Eosinophils % 1.2 Basophils % 0.2 Nucleated RBC % 0 Absolute Neutrophils 10.73 H Absolute Lymphocytes 1.60 Absolute Monocytes 1.23 H Absolute Eosinophils 0.17 Absolute Basophils 0.03 VBG Lactate Sodium 136 Potassium 4.8 Chloride 101 Carbon Dioxide 27.2 Anion Gap 7.8 BUN 49 H Creatinine 2.8 H Estimated GFR/1.73 m2 16.80 Glucose 150 H D Calcium 8.3 L Magnesium 2.0 Creatine Kinase 8510 H PAWSS Have you Been Recently Intoxicated or Drunk Within the Last 30 days?: No Have you Ever Experienced Previous Episodes of Alcohol Withdrawal?: No Have you ever Experienced Withdrawal Seizures?: No Have you ever Experienced Delirium Tremens(DT)s?: No Have you ever undergone Alcohol Rehabilitation Treatment (i.e, inpt ot outpatient treatment programs)?: No Have you ever Experienced Blackouts?: No Have you ever Combined Alcohol with other Downers within the last 90 days?: No Have you ever Combined Alcohol with any other Substance of Abuse during the last 90 days?: No Positive Blood Alcohol level on Presentation? [PCS.BAL]: No Evidence of Increased Autonomic Activity (i.e. HR>120, tremor, sweating, agitation, nausea)?: No Result: 0
[2020-12-29 13:46] LABS: BUN 48 mg/dL (7-18); CREATININE 2.8 mg/dL (0.55-1.02); Creatine Kinase 6993 U/L (26-192)
[2020-12-29 15:30] VITALS: BP 94/58; PULSE 91; RESP 18; TEMP 36.6; O2SAT 96
[2020-12-29] MEDS: Acetaminophen 325 MG TAB PO ×2 (16:42→23:55)
[2020-12-29] MEDS: Insulin Glargine 300 UNITS/3 ML PEN SC (21:34)
[2020-12-29 21:48] VITALS: BP 118/74; PULSE 88; RESP 16; TEMP 37.5; O2SAT 96
--- NOTE | 2020-12-30 | DI.US_ITS ---
Exam(s) US SOFT TISSUE EXTREMITY EXAM: US SOFT TISSUE EXTREMITY CLINICAL HISTORY: r/o hematoma. TECHNIQUE: Ultrasound was performed using standard protocol. COMPARISON: US US SOFT TISSUE EXTREMITY from 12/30/2020 FINDINGS: Sonographic assessment utilizing grayscale and color Doppler imaging was performed and targeted to th e area of clinical concern. This is in the left distal medial thigh There is subcutaneous edema evident but no discrete fluid collection or solid mass evident. IMPRESSION: Subcutaneous edema. No discrete mass nor fluid collection in the area scanned. DATA REPOSITORY:
--- NOTE | 2020-12-30 | DI.US_ITS ---
Exam(s) US SOFT TISSUE EXTREMITY EXAM: US SOFT TISSUE EXTREMITY CLINICAL HISTORY: r/o hematoma right leg. TECHNIQUE: Ultrasound was performed using standard protocol. COMPARISON: US US LOWER EXTREMITY VENOUS LT from 12/28/2020 FINDINGS: Sonographic assessment utilizing grayscale and color Doppler imaging was performed and targeted to th e area of clinical concern. Scanning was performed in an area of bruising anterior right knee area. Submitted images reveal subcutaneous emphysema but without a discrete mass. IMPRESSION: DATA REPOSITORY:
[2020-12-30] MEDS: traMADol 50 MG TAB PO ×2 (01:09→07:10)
[2020-12-30 03:00] VITALS: BP 101/54; PULSE 93; RESP 16; TEMP 37.1; O2SAT 90
[2020-12-30] MEDS: MORPHine 2 MG/ML SYR IVP ×2 (03:08→23:58)
[2020-12-30] MEDS: Lactated Ringers 1,000 ML 200 ML IV ×2 (04:21→10:07)
[2020-12-30] MEDS: Normal Saline Flush 10 ML SYR IVP ×5 (06:12→23:59)
[2020-12-30] MEDS: Acetaminophen 325 MG TAB PO ×3 (07:09→18:04)
[2020-12-30 07:15] LABS: Abs Immature Grans 0.05 10^3/uL (0.0-0.06); Absolute Basophil Count 0.02 10^3/uL (0.0-0.2); Absolute Eosinophil Count 0.18 10^3/uL (0.0-0.7); Absolute Lymphocyte Count 1.53 10^3/uL (1.2-3.4); Absolute Monocyte Count 0.95 10^3/uL (0.1-0.8); Absolute Neutrophil Count 7.99 10^3/uL (1.2-6.7); Basophils % 0.2; Eosinophils % 1.7; HCT 23.7 % (36.0-46.0); HGB 7.8 g/dL (11.2-15.7); Immature Grans % 0.5; Lymphocytes % 14.3; MCH 33.9 pg (27.0-33.0); MCHC 32.9 % (32.0-36.0); MPV 8.8 fL (8.0-11.0); Monocytes % 8.9; Neutrophils % 74.4; Nucleated RBC 0 %; Platelet Count 220 10^3/uL (130-400); RDW 13.2 % (11.7-14.6); RDW-SD 49.1 fL; WBC 10.72 10^3/uL (4.4-10.8)
[2020-12-30 07:20] VITALS: BP 101/68; PULSE 87; RESP 18; TEMP 36.9; O2SAT 96
[2020-12-30 07:46] LABS: Anion Gap 4.4 mmol/L (3-11); BUN 50 mg/dL (7-18); CO2 29.6 mmol/L (21.0-32.0); CREATININE 2.5 mg/dL (0.55-1.02); Calcium 8.2 mg/dL (8.5-10.1); Chloride 99 mmol/L (98-107); Estimated GFR 19.15 (mL/min/1.73m2); Glucose 131 mg/dL (74-106); Potassium 4.3 mmol/L (3.5-5.1); Sodium 133 mmol/L (136-145)
[2020-12-30 07:50] LABS: Creatine Kinase 4873 U/L (26-192)
[2020-12-30 07:53] LABS: Diff Comment Diff Reviewed
[2020-12-30 07:54] LABS: Hypochromasia 2+
[2020-12-30] MEDS: Escitalopram 20 MG TAB PO (07:57)
[2020-12-30] MEDS: Cholecalciferol (Vitamin D3) 1,000 UNIT TAB 2000 UNITS PO (07:57)
[2020-12-30] MEDS: Aspirin E.C. 81 MG TABEC PO (07:57)
--- NOTE | 2020-12-30 08:26 | W.PM.PROGNOT ---
Date of Service Date of service: 12/30/20 Time of Service: 08:26 Assessment and Plan Assessment and plan (1) Rhabdomyolysis: Start date: 12/30/20 Start time: 08:29 Status: Acute Assessment and plan: Rhabdo with CPK climbing, down to 4 k continue IVF, will d/c when under 1k hold statin Will give dose lasix, Creatinine only down to 2.4 Qualifiers: Rhabdomyolysis type: traumatic Encounter type: initial encounter Qualified Code(s): T79.6XXA - Traumatic ischemia of muscle, initial encounter (2) Acute kidney injury: Start date: 12/30/20 Start time: 08:30 Status: Acute Assessment and plan: avoid nephrotoxic medications and monitor labs as above (3) Traumatic injury of left lower extremity: Start date: 12/30/20 Start time: 08:30 Status: Acute Assessment and plan: continues to have pain. Tramadol and morphine prn, for pain. Working with PT No obvious tears or fx. Ortho agress to aso on right ankle PT and rehab Qualifiers: Encounter type: initial encounter Qualified Code(s): S89.92XA - Unspecified injury of left lower leg, initial encounter (4) Right ankle injury: Start date: 12/30/20 Start time: 08:31 Status: Acute Assessment and plan: c/o pain, slight dorsiflexion as above Qualifiers: Encounter type: initial encounter Qualified Code(s): S99.911A - Unspecified injury of right ankle, initial encounter (5) COPD (chronic obstructive pulmonary disease): Start date: 12/30/20 Start time: 08:31 Status: Chronic Assessment and plan: At baseline will continue home medication Qualifiers: COPD type: emphysema Emphysema type: centrilobular Qualified Code(s): J43.2 - Centrilobular emphysema (6) Hypertension: Start date: 12/30/20 Start time: 08:31 Status: Chronic Assessment and plan: meds with parameters Qualifiers: Hypertension type: unspecified Qualified Code(s): I10 - Essential (primary) hypertension (7) Tobacco abuse: Start date: 12/30/20 Start time: 08:31 Status: Chronic Assessment and plan: nicotine replacement as needed (8) Diabetes mellitus: Status: Chronic Assessment and plan: hold orals SSI as she insulin naive Qualifiers: Diabetes mellitus type: type 2 Diabetes mellitus detention insulin use: without long term acute care registered nurse use Diabetes mellitus complication status: without complication Qualified Code(s): E11.9 - Type 2 diabetes mellitus without complications (9) DVT prophylaxis: Start date: 12/30/20 Start time: 08:32 Status: Acute Assessment and plan: Enoxaparin discussed with Dr. Coleman Subjective Subjective Patient reports: no new complaints Interval history since last seen: laying in bed. No new complaints. Agreeable to rehab. States worked with PT yesterday. Creatinine slightly down. Will give another dose of lasix continue to monitor labs. CPK at 4k trending down. Denies SOB, N/V/D Exam Const Nutritional Appearance: obese Orientation: alert, awake and oriented x3 Eyes General: appearance normal, both eyes and all related structures Pupils: PERRL EOM: EOM intact bilaterally Neck Lymphatic: no lymphadenopathy noted Resp Effort & Inspection: able to speak in complete sentences Auscultation: diminished lung sounds Cardio Jugular venous pressure: no JVD Rate: regular rate Rhythm: regular rhythm Heart Sounds: S1 normal and S2 normal GI Inspection: obesity Palpation: soft and no hepatosplenomegaly Auscultation: normal bowel sounds Skin General skin exam: other Neuro General: patient alert, patient awake and patient oriented x3 Cognition: normal cognition Speech: speech normal Extrem General: clubbing, cyanosis or edema noted and edema Laterality: left Right lower extremity: ankle (pain with flexion) Details: edema and foot Left lower extremity: normal to inspection and edema Objective Last Vital Signs Temp 36.9 C 12/30/20 07:20 Pulse 87 12/30/20 07:20 Resp 18 12/30/20 07:20 BP 101/68 12/30/20 07:20 Pulse Ox 96 12/30/20 07:20 Laboratory Results - last 24 hr 12/29/20 12/29/20 12/30/20 08:48 13:15 06:15 WBC RBC Hgb Hct MCV MCH MCHC RDW Plt Count MPV Immature Gran % Neutrophils % Lymphocytes % Monocytes % Eosinophils % Basophils % Nucleated RBC % Absolute Neutrophils Absolute Lymphocytes Absolute Monocytes Absolute Eosinophils Absolute Basophils RBC Morphology Hypochromasia Sodium 133 L Potassium 4.3 Chloride 99 Carbon Dioxide 29.6 Anion Gap 4.4 BUN 48 H 50 H Creatinine 2.8 H 2.5 H Estimated GFR/1.73 m2 16.80 19.15 Glucose 131 H Calcium 8.2 L Creatine Kinase 8510 H 6993 H 4873 H 12/30/20 06:15 WBC 10.72 RBC 2.30 L Hgb 7.8 L Hct 23.7 L MCV 103.0 H D MCH 33.9 H MCHC 32.9 RDW 13.2 Plt Count 220 MPV 8.8 Immature Gran % 0.5 Neutrophils % 74.4 Lymphocytes % 14.3 Monocytes % 8.9 Eosinophils % 1.7 Basophils % 0.2 Nucleated RBC % 0 Absolute Neutrophils 7.99 H Absolute Lymphocytes 1.53 Absolute Monocytes 0.95 H Absolute Eosinophils 0.18 Absolute Basophils 0.02 RBC Morphology See Below Hypochromasia 2+ Sodium Potassium Chloride Carbon Dioxide Anion Gap BUN Creatinine Estimated GFR/1.73 m2 Glucose Calcium Creatine Kinase PAWSS Have you Been Recently Intoxicated or Drunk Within the Last 30 days?: No Have you Ever Experienced Previous Episodes of Alcohol Withdrawal?: No Have you ever Experienced Withdrawal Seizures?: No Have you ever Experienced Delirium Tremens(DT)s?: No Have you ever undergone Alcohol Rehabilitation Treatment (i.e, inpt ot outpatient treatment programs)?: No Have you ever Experienced Blackouts?: No Have you ever Combined Alcohol with other Downers within the last 90 days?: No Have you ever Combined Alcohol with any other Substance of Abuse during the last 90 days?: No Positive Blood Alcohol level on Presentation? [PCS.BAL]: No Evidence of Increased Autonomic Activity (i.e. HR>120, tremor, sweating, agitation, nausea)?: No Result: 0
[2020-12-30] MEDS: Furosemide 100 MG/10 ML VIAL 80 MG IVP (08:46)
--- NOTE | 2020-12-30 10:48 | PT.INTREAT ---
PT Notes Visit Reasons: TRAUMATIC FALL, LEUKOCYTOSIS 12/30/2020 SUBJECTIVE: Appears to be a little loopy today throughout. She alert and oriented though. She continues to note discomfort especially through the R ankle and foot region. OBJECTIVE: TRANSFERS Supine to sit: Mod A Sit to supine Mod A Sit to stand: Mod A x 2 Stand to sit: Mod A GAIT Device: FWW Weight bearing: AT bilaterally Assist: CGA Distance: 3 side steps to the R, 2 steps forward and backwards Deviation: Cues required to unweight R LE using the walker THEREX: Supine bilateral LE ROM activities and muscle setting to her tolerance. See flow sheet. ASSESSMENT: Is mobilizing with improvement today. She is able to weight bear on the R LE although this is painful for her. She seems to be more fearful of causing pain but is physically able to bear weight and perform short distance gait. PLAN: Continue to progress functional mobility. Will most likely progress slowly due to high anxiety. Treatment time: 30 minutes [id number], [id number] Nalini Major PTA Clinic location: [facility] [place], [place]
[2020-12-30] MEDS: Insulin Aspart 300 UNITS/3 ML PEN SC ×3 (12:02→22:19)
--- NOTE | 2020-12-30 14:59 | DI.VRAD_ITS ---
PROCEDURE INFORMATION: Exam: US Left Joint, Complete Exam date and time: 12/30/2020 1:24 PM Age: 70 years old Clinical indication: Other: R/O hematoma; Patient HX: PT S/P recent fall on 12/28/20 TECHNIQUE: Imaging protocol: Left US Joint including joint space, tendons, ligaments, and david-articular soft tissue. Complete exam. Exam was focused on the joint of clinical interest. COMPARISON: US SOFT TISSUE EXTREMITY 12/30/2020 1:36 PM FINDINGS: Soft tissues: Ultrasound imaging of the left lower extremity in areas of bruising was performed. The examination shows subcutaneous edema. No discrete mass or localized fluid collections are seen. IMPRESSION: Subcutaneous edema is seen in the imaged areas. No masses are seen. Dictated and Authenticated by: Dylan Broderick MD. Ordering:GRETCHEN Agosto MD
--- NOTE | 2020-12-30 15:00 | DI.VRAD_ITS ---
PROCEDURE INFORMATION: Exam: US Right Joint, Complete Exam date and time: 12/30/2020 1:25 PM Age: 70 years old Clinical indication: Other: R/O hematoma; Patient HX: PT S/P recent fall TECHNIQUE: Imaging protocol: Right US Joint including joint space, tendons, ligaments, and david-articular soft tissue. Complete exam. Exam was focused on the joint of clinical interest. COMPARISON: CT ABDOMEN PELVIS WO 12/27/2020 10:27 PM FINDINGS: Soft tissues: Ultrasound imaging of the right lower extremity in areas of bruising was performed. The examination shows subcutaneous edema. No discrete mass or localized fluid collections are seen. Bones/joints: Unremarkable. No joint effusion. IMPRESSION: Subcutaneous edema is seen in the imaged areas. No masses are seen Dictated and Authenticated by: Dylan Broderick MD. Ordering:GRETCHEN Agosto MD
[2020-12-30 15:12] VITALS: BP 98/70; PULSE 82; RESP 18; TEMP 37.3; O2SAT 95
[2020-12-30] MEDS: Pantoprazole 40 MG VIAL IVP (18:05)
[2020-12-30 19:15] LABS: HCT 24.3 % (36.0-46.0); HGB 7.9 g/dL (11.2-15.7)
[2020-12-30] MEDS: Insulin Glargine 300 UNITS/3 ML PEN SC (22:20)
[2020-12-30 23:09] VITALS: BP 105/68; PULSE 88; RESP 18; TEMP 36.9; O2SAT 96
[2020-12-31] MEDS: Cyclobenzaprine 10 MG TAB PO ×3 (03:25→20:20)
[2020-12-31 06:18] VITALS: BP 113/69; PULSE 97; RESP 18; TEMP 36.9; O2SAT 94
[2020-12-31 07:22] VITALS: BP 100/65; PULSE 88; RESP 18; TEMP 36.8; O2SAT 97
[2020-12-31 07:33] LABS: Anion Gap 3.8 mmol/L (3-11); BUN 48 mg/dL (7-18); CO2 31.2 mmol/L (21.0-32.0); CREATININE 2.3 mg/dL (0.55-1.02); Calcium 8.4 mg/dL (8.5-10.1); Chloride 98 mmol/L (98-107); Estimated GFR 21.09 (mL/min/1.73m2); Glucose 175 mg/dL (74-106); Potassium 4.3 mmol/L (3.5-5.1); Sodium 133 mmol/L (136-145)
[2020-12-31 07:35] LABS: Creatine Kinase 3217 U/L (26-192)
[2020-12-31] MEDS: Pantoprazole 40 MG TABCR PO ×2 (07:57→20:20)
[2020-12-31] MEDS: Escitalopram 20 MG TAB PO (07:57)
[2020-12-31] MEDS: Insulin Aspart 300 UNITS/3 ML PEN SC ×4 (07:57→21:25)
[2020-12-31] MEDS: Cholecalciferol (Vitamin D3) 1,000 UNIT TAB 2000 UNITS PO (07:57)
--- NOTE | 2020-12-31 09:49 | W.PM.PROGNOT ---
Date of Service Date of service: 12/31/20 Time of Service: 09:49 Assessment and Plan Assessment and plan (1) Anemia: Status: Chronic Assessment and plan: H&H stable check stool for OB iron panel added suspect multifactorial with dilution, CKD, maybe iron deficiency (2) Rhabdomyolysis: Status: Acute Assessment and plan: Rhabdo with CPK improving down to 3 k after IVF stopped, yesterday continue to hold statin Creatinine continues trending downward Qualifiers: Encounter type: initial encounter Rhabdomyolysis type: traumatic Qualified Code(s): T79.6XXA - Traumatic ischemia of muscle, initial encounter (3) Acute kidney injury: Status: Acute Assessment and plan: avoid nephrotoxic medications and monitor labs improved to 2.3, baseline 1.6 (4) Traumatic injury of left lower extremity: Status: Acute Assessment and plan: continues to have pain. Tramadol and morphine prn, for pain. Working with PT No obvious tears or fx. Ortho agress to aso on right ankle PT and rehab will likely need SNF Qualifiers: Encounter type: initial encounter Qualified Code(s): S89.92XA - Unspecified injury of left lower leg, initial encounter (5) Right ankle injury: Status: Acute Assessment and plan: c/o pain, slight dorsiflexion as above Qualifiers: Encounter type: initial encounter Qualified Code(s): S99.911A - Unspecified injury of right ankle, initial encounter (6) COPD (chronic obstructive pulmonary disease): Status: Chronic Assessment and plan: At baseline will continue home medication Qualifiers: COPD type: emphysema Emphysema type: centrilobular Qualified Code(s): J43.2 - Centrilobular emphysema (7) Hypertension: Status: Chronic Assessment and plan: meds with parameters Qualifiers: Hypertension type: unspecified Qualified Code(s): I10 - Essential (primary) hypertension (8) Tobacco abuse: Status: Chronic Assessment and plan: nicotine replacement as needed (9) Diabetes mellitus: Status: Chronic Assessment and plan: hold orals SSI as she insulin naive Qualifiers: Diabetes mellitus complication status: without complication Diabetes mellitus chcf insulin use: without relay shop tester use Diabetes mellitus type: type 2 Qualified Code(s): E11.9 - Type 2 diabetes mellitus without complications (10) DVT prophylaxis: Status: Acute Assessment and plan: Enoxaparin (11) Discharge planning issues: Status: Inactive Assessment and plan: anticipate [facility] discharge PT following case management following. discussed with Dr. Coleman Subjective Subjective Patient reports: still having pain, tolerating liquids well and tolerating a regular diet Interval history since last seen: working with physical therapy and making slow progress. still difficulty bearing weight. no fever, no dizziness, no obvious bleeding. has not had a bowel movement but states she is passing flatus and does not have nausea or abdominal pain. Exam Const Nutritional Appearance: obese Orientation: alert, awake and oriented x3 Eyes General: appearance normal, both eyes and all related structures Pupils: PERRL EOM: EOM intact bilaterally Resp Effort & Inspection: able to speak in complete sentences Auscultation: diminished lung sounds Cardio Rate: regular rate Rhythm: regular rhythm GI Inspection: obesity Palpation: soft Auscultation: normal bowel sounds Skin General skin exam: other Neuro General: patient alert, patient awake and patient oriented x3 Cognition: normal cognition Speech: speech normal Extrem General: edema (bruising to bilateral lower ext left > right) Laterality: left Right lower extremity: ankle (pain with flexion) Details: edema and foot Left lower extremity: normal to inspection and edema Objective Last Vital Signs Temp 36.8 C 12/31/20 07:22 Pulse 88 12/31/20 07:22 Resp 18 12/31/20 07:22 BP 100/65 12/31/20 07:22 Pulse Ox 97 12/31/20 07:22 Laboratory Results - last 24 hr 12/30/20 12/30/20 12/31/20 18:40 18:40 06:45 Hgb 7.9 L Hct 24.3 L Sodium 133 L Potassium 4.3 Chloride 98 Carbon Dioxide 31.2 Anion Gap 3.8 BUN 48 H Creatinine 2.3 H Estimated GFR/1.73 m2 21.09 Glucose 175 H Calcium 8.4 L Creatine Kinase 3217 H Patient ABO/Rh O Positive Antibody Screen NEGATIVE PAWSS Have you Been Recently Intoxicated or Drunk Within the Last 30 days?: No Have you Ever Experienced Previous Episodes of Alcohol Withdrawal?: No Have you ever Experienced Withdrawal Seizures?: No Have you ever Experienced Delirium Tremens(DT)s?: No Have you ever undergone Alcohol Rehabilitation Treatment (i.e, inpt ot outpatient treatment programs)?: No Have you ever Experienced Blackouts?: No Have you ever Combined Alcohol with other Downers within the last 90 days?: No Have you ever Combined Alcohol with any other Substance of Abuse during the last 90 days?: No Positive Blood Alcohol level on Presentation? [PCS.BAL]: No Evidence of Increased Autonomic Activity (i.e. HR>120, tremor, sweating, agitation, nausea)?: No Result: 0
[2020-12-31 10:06] LABS: Abs Immature Grans 0.08 10^3/uL (0.0-0.06); Absolute Basophil Count 0.02 10^3/uL (0.0-0.2); Absolute Lymphocyte Count 1.24 10^3/uL (1.2-3.4); Absolute Monocyte Count 0.85 10^3/uL (0.1-0.8); Absolute Neutrophil Count 10.05 10^3/uL (1.2-6.7); Basophils % 0.2; Eosinophils % 1.6; HCT 24.2 % (36.0-46.0); HGB 7.9 g/dL (11.2-15.7); Immature Grans % 0.6; MCH 34.2 pg (27.0-33.0); MCHC 32.6 % (32.0-36.0); MCV 104.8 fL (80-95); MPV 8.9 fL (8.0-11.0); Monocytes % 6.8; Neutrophils % 80.8; Nucleated RBC 0 %; Platelet Count 239 10^3/uL (130-400); RBC 2.31 10^6/uL (3.93-5.22); RDW-SD 49.2 fL; WBC 12.44 10^3/uL (4.4-10.8)
[2020-12-31 10:39] LABS: Iron 35 ug/dL (50-170); Total Iron Binding Capacity 202 ug/dL (250-450); Transferrin Sat 17 % (15-50)
[2020-12-31] MEDS: MORPHine 2 MG/ML SYR IM/SC (12:25)
--- NOTE | 2020-12-31 15:09 | PT.INTREAT ---
Date of service: 12/31/20 Time of Service: 11:36 PT Notes Visit Reasons: TRAUMATIC FALL, LEUKOCYTOSIS Inpatient Physical Therapy Treatment Note [facility] Date: 12/31/2020 PRECAUTIONS: Fall, activity as tolerated SUBJECTIVE: Shira states I just want to go home and be with my family. She states that she is not feeling better today. OBJECTIVE: PAIN: Patient c/o significant pain at Ortega catheter site in both a.m. and p.m.; R ankle/foot pain in a.m.; L medial thigh pain in p.m. BED MOBILITY/TRANSFERS Supine-sit: Min A with HOB at 50 degrees Sit-supine: Min A of R LE with HOB flat Sit-stand: SBA Stand-sit: SBA Bed-Chair: SBA Chair-bed: SBA GAIT Assistive Device: FWW Weight bearing: Full Assist: SBA Distance: 6' + 20' in a.m.; 20' in p.m. Deviation: SOB, pain, cueing for off-loading R LE, cueing for FWW mechanics THEREX: Patient was instructed in a seated UE and LE strengthening program, as per flow sheet. Patient requires rests between each exercise due to fatigue and SOB. She demonstrates global weakness. ASSESSMENT: Patient tolerated session with complaint of pain in various areas with all movement. She was able to tolerate a progression in gait distance with FWW support and SBA. She demonstrates global weakness, requiring assist bed mobility at this time. PLAN: Continue with global strengthening and general conditioning for improved activity tolerance and mobility. TREATMENT CODE/TIME: Session 1: 28 minutes; [id number] x2 (11:36) Session 2: 23 minutes; [id number], [id number] (14:28)
[2020-12-31 16:30] VITALS: BP 96/90; PULSE 81; RESP 18; TEMP 37.2; O2SAT 94
[2020-12-31] MEDS: traMADol 50 MG TAB PO ×2 (16:43→21:25)
[2020-12-31] MEDS: Polyethylene Glycol 3350 17 GM PACKET PO (16:43)
[2020-12-31] MEDS: Acetaminophen 325 MG TAB 650 MG PO ×2 (16:44→20:20)
[2020-12-31 18:10] LABS: Hemoglobin A1C 7.8 % (<5.7)
--- NOTE | 2020-12-31 19:18 | PDOC.CMPRO ---
- If Service Date Differs Date of service: 12/31/20 Time of Service: 19:18 Care Management Progress Note S/O: Shira was sitting up in her chair when CM met with her. CM discussed the recommendation for her to go to rehab from this hospital admission, as she is having trouble ambulating and making slow progress with PT. CM later met with Shira and her daughter, Effie, and her grand daughter, and rehab was discussed again. Shira reported that she is nervous about going to rehab, and her daughter has reservations as well, as they are concerned that she will never be able to leave. CM stated that the intention is for her to have short term rehab, for her to regain strength and independence with mobility. They stated that she is very independent at baseline, and they hope she can return to that level of functioning. CM sent referrals to the [facility], [facility], [facility], and [place], at their request. CM will follow up on these referrals later in the week. Per provider, she may be ready /Thu of this week, if her labs continue to improve. Effie would like to transport Shira, if possible, but will need to know the day/time ahead of time to make arrangements. Shira's first choice would be to return home, if she makes enough improvement with PT over the next few days. CM will continue to follow. A: Shira is a 70 year old female admitted to [facility] on 12/28/20 for traumatic fall, leukocytosis. P: Shira will go to short term rehab vs home with support when medically cleared. Her discharge plan will depend on how much she improves functionally over the course of this admission. She will be transported via private vehicle by family. She will follow up with her PCP and discharge plan of care. CM will continue to follow.
[2020-12-31] MEDS: Docusate Sodium 100 MG CAP PO (20:20)
[2020-12-31] MEDS: Insulin Glargine 300 UNITS/3 ML PEN SC (21:26)
[2020-12-31 23:35] VITALS: BP 96/65; PULSE 93; RESP 20; TEMP 36.6; O2SAT 96
[2021-01-01] MEDS: Docusate Sodium 100 MG CAP PO ×2 (05:10→20:15)
[2021-01-01] MEDS: Milk of Magnesia 30 ML CUP PO ×2 (05:10→09:04)
[2021-01-01] MEDS: Pantoprazole 40 MG TABCR PO ×2 (06:33→20:11)
[2021-01-01] MEDS: Cyclobenzaprine 10 MG TAB PO ×2 (06:33→20:15)
[2021-01-01 07:14] VITALS: BP 115/74; PULSE 76; RESP 19; TEMP 36.7; O2SAT 97
[2021-01-01 07:35] LABS: Abs Immature Grans 0.15 10^3/uL (0.0-0.06); Absolute Eosinophil Count 0.21 10^3/uL (0.0-0.7); Basophils % 0.2; Eosinophils % 1.7; HCT 25.3 % (36.0-46.0); HGB 8.4 g/dL (11.2-15.7); Immature Grans % 1.2; Lymphocytes % 10.4; MCH 33.6 pg (27.0-33.0); MCHC 33.2 % (32.0-36.0); MCV 101.2 fL (80-95); MPV 8.7 fL (8.0-11.0); Monocytes % 7.7; Neutrophils % 78.8; Nucleated RBC 0 %; Platelet Count 273 10^3/uL (130-400); RDW 12.7 % (11.7-14.6); RDW-SD 47.1 fL; WBC 12.27 10^3/uL (4.4-10.8)
[2021-01-01 07:39] LABS: Absolute Basophil Count 0.02 10^3/uL (0.0-0.2); Absolute Lymphocyte Count 1.28 10^3/uL (1.2-3.4); Absolute Monocyte Count 0.94 10^3/uL (0.1-0.8); Absolute Neutrophil Count 9.67 10^3/uL (1.2-6.7)
[2021-01-01 07:58] LABS: Anion Gap 4.4 mmol/L (3-11); BUN 40 mg/dL (7-18); CO2 31.6 mmol/L (21.0-32.0); CREATININE 1.9 mg/dL (0.55-1.02); Chloride 98 mmol/L (98-107); Estimated GFR 26.29 (mL/min/1.73m2); Glucose 211 mg/dL (74-106); Potassium 4.2 mmol/L (3.5-5.1); Sodium 134 mmol/L (136-145)
[2021-01-01 08:03] LABS: Creatine Kinase 1982 U/L (26-192)
[2021-01-01] MEDS: Escitalopram 20 MG TAB PO (09:04)
[2021-01-01] MEDS: Polyethylene Glycol 3350 17 GM PACKET PO (09:04)
[2021-01-01] MEDS: Acetaminophen 325 MG TAB 650 MG PO ×4 (09:04→20:11)
[2021-01-01] MEDS: Cholecalciferol (Vitamin D3) 1,000 UNIT TAB 2000 UNITS PO (09:04)
[2021-01-01] MEDS: Insulin Aspart 300 UNITS/3 ML PEN SC ×4 (09:05→22:24)
--- NOTE | 2021-01-01 09:06 | CMPROGNOTE_ITS ---
- If Service Date Differs Date of service: 01/01/21 Time of Service: 09:06 Care Management Progress Note S/O: Shira slept through most of the morning, was sitting up in her chair, freshly showered in the afternoon. No updates from SNF referrals at this time. CM will continue to follow. A: Shira is a 70 year old female admitted to [facility] on 12/28/20 for traumatic fall, leukocytosis. P: Shira will go to short term rehab vs home with support when medically cleared. Her discharge plan will depend on how much she improves functionally over the course of this admission. She will be transported via private vehicle by family. She will follow up with her PCP and discharge plan of care. CM will continue to follow. Kitty [facility]ett [facility]
[2021-01-01 09:45] LABS: Ferritin 88 ng/mL (8-252)
--- NOTE | 2021-01-01 10:01 | W.DIABETESNO ---
Date of service: 01/01/21 Time of Service: 10:01 Diabetes Note NOTE: Blood sugars still above target. Getting a correction insulin and now 5 units of Glargine. Would recommend start increasing her Glargine by 20% until blood sugars at target, given her weight of 148.8 kg. PO intake is variable. Time Spent in Nutritional Counseling and Treatment: 0
--- NOTE | 2021-01-01 12:26 | W.PM.PROGNOT ---
Date of Service Date of service: 01/01/21 Time of Service: 12:26 Assessment and Plan Assessment and plan (1) Anemia: Status: Chronic Assessment and plan: H&H stable check stool for OB iron panel added suspect multifactorial with dilution, CKD, maybe iron deficiency (2) Rhabdomyolysis: Status: Acute Assessment and plan: Rhabdo with CPK continues to improve after IVF stopped continue to hold statin Creatinine continues trending downward Qualifiers: Rhabdomyolysis type: traumatic Encounter type: initial encounter Qualified Code(s): T79.6XXA - Traumatic ischemia of muscle, initial encounter (3) Acute kidney injury: Status: Acute Assessment and plan: avoid nephrotoxic medications and monitor labs improved to 1.9, baseline 1.6 (4) Traumatic injury of left lower extremity: Status: Acute Assessment and plan: continues to have pain. scheduled tylenol yesterday for better control Tramadol and morphine prn, for pain. Working with PT No obvious tears or fx. continue PT will likely need SNF Qualifiers: Encounter type: initial encounter Qualified Code(s): S89.92XA - Unspecified injury of left lower leg, initial encounter (5) Right ankle injury: Status: Acute Assessment and plan: c/o pain, slight dorsiflexion as above Qualifiers: Encounter type: initial encounter Qualified Code(s): S99.911A - Unspecified injury of right ankle, initial encounter (6) COPD (chronic obstructive pulmonary disease): Status: Chronic Assessment and plan: At baseline will continue home medication Qualifiers: COPD type: emphysema Emphysema type: centrilobular Qualified Code(s): J43.2 - Centrilobular emphysema (7) Hypertension: Status: Chronic Assessment and plan: meds with parameters Qualifiers: Hypertension type: unspecified Qualified Code(s): I10 - Essential (primary) hypertension (8) Tobacco abuse: Status: Chronic Assessment and plan: nicotine replacement as needed (9) Diabetes mellitus: Status: Chronic Assessment and plan: hold orals SSI as she insulin naive Qualifiers: Diabetes mellitus type: type 2 Diabetes mellitus residential insulin use: without residential use Diabetes mellitus complication status: without complication Qualified Code(s): E11.9 - Type 2 diabetes mellitus without complications (10) DVT prophylaxis: Status: Acute Assessment and plan: Enoxaparin (11) Discharge planning issues: Status: Inactive Assessment and plan: anticipate half-way facility discharge PT following case management following. discussed with Dr. Brewer Subjective Subjective Patient reports: no new complaints, feels better, tolerating liquids well, tolerating a regular diet and afebrile; denies shortness of breath Interval history since last seen: making slow progress, needing motivation Exam Const Nutritional Appearance: obese Orientation: alert, awake and oriented x3 Eyes General: appearance normal, both eyes and all related structures Pupils: PERRL EOM: EOM intact bilaterally Resp Effort & Inspection: able to speak in complete sentences Auscultation: diminished lung sounds Cardio Rate: regular rate Rhythm: regular rhythm GI Inspection: obesity Palpation: soft Auscultation: normal bowel sounds Skin General skin exam: other Neuro General: patient alert, patient awake and patient oriented x3 Cognition: normal cognition Speech: speech normal Extrem General: edema (bruising to bilateral lower ext left > right) Laterality: left Right lower extremity: ankle (pain with flexion) Details: edema and foot Left lower extremity: normal to inspection and edema Objective Last Vital Signs Temp 36.7 C 01/01/21 07:14 Pulse 76 01/01/21 07:14 Resp 19 01/01/21 07:14 BP 115/74 01/01/21 07:14 Pulse Ox 97 01/01/21 07:14 Laboratory Results - last 24 hr 12/31/20 01/01/21 01/01/21 06:45 06:39 06:39 WBC 12.27 H RBC 2.50 L Hgb 8.4 L Hct 25.3 L MCV 101.2 H D MCH 33.6 H MCHC 33.2 RDW 12.7 Plt Count 273 MPV 8.7 Immature Gran % 1.2 Neutrophils % 78.8 Lymphocytes % 10.4 Monocytes % 7.7 Eosinophils % 1.7 Basophils % 0.2 Nucleated RBC % 0 Absolute Neutrophils 9.67 H Absolute Lymphocytes 1.28 Absolute Monocytes 0.94 H Absolute Eosinophils 0.21 Absolute Basophils 0.02 Sodium 134 L Potassium 4.2 Chloride 98 Carbon Dioxide 31.6 Anion Gap 4.4 BUN 40 H Creatinine 1.9 H Estimated GFR/1.73 m2 26.29 Glucose 211 H Hemoglobin A1c 7.8 H Calcium 9.0 Ferritin Creatine Kinase 1982 H 01/01/21 06:39 WBC RBC Hgb Hct MCV MCH MCHC RDW Plt Count MPV Immature Gran % Neutrophils % Lymphocytes % Monocytes % Eosinophils % Basophils % Nucleated RBC % Absolute Neutrophils Absolute Lymphocytes Absolute Monocytes Absolute Eosinophils Absolute Basophils Sodium Potassium Chloride Carbon Dioxide Anion Gap BUN Creatinine Estimated GFR/1.73 m2 Glucose Hemoglobin A1c Calcium Ferritin 88 Creatine Kinase PAWSS Have you Been Recently Intoxicated or Drunk Within the Last 30 days?: No Have you Ever Experienced Previous Episodes of Alcohol Withdrawal?: No Have you ever Experienced Withdrawal Seizures?: No Have you ever Experienced Delirium Tremens(DT)s?: No Have you ever undergone Alcohol Rehabilitation Treatment (i.e, inpt ot outpatient treatment programs)?: No Have you ever Experienced Blackouts?: No Have you ever Combined Alcohol with other Downers within the last 90 days?: No Have you ever Combined Alcohol with any other Substance of Abuse during the last 90 days?: No Positive Blood Alcohol level on Presentation? [PCS.BAL]: No Evidence of Increased Autonomic Activity (i.e. HR>120, tremor, sweating, agitation, nausea)?: No Result: 0
--- NOTE | 2021-01-01 14:46 | CHAPLAIN ---
Shira was sitting up in the chair having a late lunch when I visited her this afternoon. She said she had slept through lunch and they were brought her another on. Shira fell through floor boards on her porch four days ago (12/28) and was unable to get herself up through the floor boards until a neighbor arrived and 911 was called. On 12/28 I met with Shira daughter was Shira was out of the room for xrays. Her daughter lives in [place], [place], about 4o minutes away. She is currently taking care of Shira's dog, a boxer. Shira says she missed her dog terribly. This afternoon Shira seems unhappy and scared. She tells me that she walked about of her room (room 27) and down the cordero toward the infusion area, the farthest she's gone yet. She was pleased about that. Her daughter and granddaughter are keeping in touch by phone and visiting some.
--- NOTE | 2021-01-01 15:07 | PT.INTREAT ---
Date of service: 01/01/21 Time of Service: 09:57 PT Notes Visit Reasons: TRAUMATIC FALL, LEUKOCYTOSIS Inpatient Physical Therapy Treatment Note [facility] Date: 01/01/2021 PRECAUTIONS: Fall, activity as tolerated SUBJECTIVE: Shira reports feeling very tired today. She is hesitant but agreeable to participating in PT. OBJECTIVE: PAIN: Patient c/o B knee pain with ther ex in a.m. and of B lower leg numbness and discomfort in p.m. BED MOBILITY/TRANSFERS Supine-sit: I with HOB flat Sit-supine: I with HOB flat Sit-stand: SBA in a.m.; S in p.m. Stand-sit: SBA in a.m.; S in p.m. Bed-Chair: SBA in a.m.; S in p.m. Chair-bed: SBA in a.m.; S in p.m. GAIT Assistive Device: FWW Weight bearing: Full Assist: SBA in a.m.; S in p.m. Distance: 30' + 40' in a.m.; 50' + 60' in p.m. Deviation: SOB, pain, wheelchair follow, increased fatigue THEREX: Patient was instructed in a seated LE strengthening program, as per flow sheet. Patient requires rests between each exercise due to fatigue and SOB. She demonstrates global weakness. TOILETING: Patient toileted with supervision for transfers ASSESSMENT: Patient tolerated session with complaint of B knee pain with ther ex and of B lower leg pain with gait training. She was able to tolerate a progression in gait distance with FWW support and supervision. She demonstrates global weakness, although does not require assist with bed mobility at this time. PLAN: Continue with global strengthening and general conditioning for improved activity tolerance and mobility. TREATMENT CODE/TIME: Session 1: 32 minutes; [id number], [id number] (09:57) Session 2: 20 minutes; [id number] (13:14)
[2021-01-01 15:41] VITALS: BP 123/73; PULSE 82; RESP 19; TEMP 36.4; O2SAT 98
[2021-01-01 20:19] VITALS: BP 127/67; PULSE 78; RESP 16; TEMP 36.3; O2SAT 98
[2021-01-01] MEDS: Insulin Glargine 300 UNITS/3 ML PEN SC (22:24)
[2021-01-02] MEDS: Pantoprazole 40 MG TABCR PO ×2 (06:33→19:40)
[2021-01-02 07:23] VITALS: BP 107/69; PULSE 80; RESP 19; TEMP 36.9; O2SAT 97
[2021-01-02] MEDS: Insulin Aspart 300 UNITS/3 ML PEN SC ×4 (07:53→21:02)
[2021-01-02] MEDS: Cholecalciferol (Vitamin D3) 1,000 UNIT TAB 2000 UNITS PO (07:53)
[2021-01-02] MEDS: Escitalopram 20 MG TAB PO (07:53)
[2021-01-02] MEDS: Acetaminophen 325 MG TAB 650 MG PO ×4 (07:53→19:39)
[2021-01-02] MEDS: Polyethylene Glycol 3350 17 GM PACKET PO (07:53)
[2021-01-02 10:12] LABS: Anion Gap 3.8 mmol/L (3-11); BUN 36 mg/dL (7-18); CO2 32.2 mmol/L (21.0-32.0); CREATININE 1.7 mg/dL (0.55-1.02); Calcium 8.6 mg/dL (8.5-10.1); Chloride 101 mmol/L (98-107); Estimated GFR 29.89 (mL/min/1.73m2); Folate 5.8 ng/mL (8.6-20.0); Glucose 239 mg/dL (74-106); Potassium 4.8 mmol/L (3.5-5.1); Sodium 137 mmol/L (136-145); Vitamin B12 195 pg/mL (193-986)
[2021-01-02] MEDS: Multivitamin w/Minerals TAB 1 TAB PO (10:43)
[2021-01-02] MEDS: Folic Acid 1 MG TAB PO (10:44)
--- NOTE | 2021-01-02 10:48 | W.PM.PROGNOT ---
Date of Service Date of service: 01/02/21 Time of Service: 10:48 Assessment and Plan Assessment and plan (1) Anemia: Status: Chronic Assessment and plan: H&H stable stool for OB has been negative iron panel added suspect multifactorial with dilution, CKD, maybe iron deficiency (2) Rhabdomyolysis: Status: Acute Assessment and plan: Rhabdo with CPK continues to improve after IVF stopped continue to hold statin Creatinine continues trending downward Qualifiers: Encounter type: initial encounter Rhabdomyolysis type: traumatic Qualified Code(s): T79.6XXA - Traumatic ischemia of muscle, initial encounter (3) Acute kidney injury: Status: Acute Assessment and plan: avoid nephrotoxic medications and monitor labs improved to 1.7, baseline 1.6 (4) Traumatic injury of left lower extremity: Status: Acute Assessment and plan: pain better today, scheduled tylenol with better control Tramadol and morphine prn, for pain. Working with PT No obvious tears or fx. continue PT anticipate discharge to home with home health services. Qualifiers: Encounter type: initial encounter Qualified Code(s): S89.92XA - Unspecified injury of left lower leg, initial encounter (5) Right ankle injury: Status: Acute Assessment and plan: improving Qualifiers: Encounter type: initial encounter Qualified Code(s): S99.911A - Unspecified injury of right ankle, initial encounter (6) COPD (chronic obstructive pulmonary disease): Status: Chronic Assessment and plan: At baseline will continue home medication oxygen dependent. Qualifiers: COPD type: emphysema Emphysema type: centrilobular Qualified Code(s): J43.2 - Centrilobular emphysema (7) Hypertension: Status: Chronic Assessment and plan: meds with parameters Qualifiers: Hypertension type: unspecified Qualified Code(s): I10 - Essential (primary) hypertension (8) Tobacco abuse: Status: Chronic Assessment and plan: nicotine replacement as needed (9) Diabetes mellitus: Status: Chronic Assessment and plan: blood sugars have been elevated, placed on lantus while hospitalized, will increase dose to 12 units and continue to monitor. will resume home medication at discharge will increase to moderate sliding scale. 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 discussed with Dr. Brewer Subjective Subjective Patient reports: feels better, pain is less, tolerating liquids well, tolerating a regular diet, voiding w/o difficulty and afebrile; denies shortness of breath Interval history since last seen: patient working with PT and progressing well. Exam Const Nutritional Appearance: obese Orientation: alert, awake and oriented x3 Eyes General: appearance normal, both eyes and all related structures Pupils: PERRL EOM: EOM intact bilaterally Resp Effort & Inspection: able to speak in complete sentences Auscultation: diminished lung sounds Cardio Rate: regular rate Rhythm: regular rhythm GI Inspection: obesity Palpation: soft Auscultation: normal bowel sounds Skin General skin exam: other Neuro General: patient alert, patient awake and patient oriented x3 Cognition: normal cognition Speech: speech normal Extrem General: edema (bruising to bilateral lower ext left > right) Laterality: left Right lower extremity: ankle (pain with flexion) Details: edema and foot Left lower extremity: normal to inspection and edema Objective Last Vital Signs Temp 36.9 C 01/02/21 07:23 Pulse 80 01/02/21 07:23 Resp 19 01/02/21 07:23 BP 107/69 01/02/21 07:23 Pulse Ox 97 01/02/21 07:23 Laboratory Results - last 24 hr 01/02/21 06:10 Sodium 137 Potassium 4.8 Chloride 101 Carbon Dioxide 32.2 H Anion Gap 3.8 BUN 36 H Creatinine 1.7 H Estimated GFR/1.73 m2 29.89 Glucose 239 H Calcium 8.6 Magnesium 2.0 Vitamin B12 195 Folate 5.8 L PAWSS Have you Been Recently Intoxicated or Drunk Within the Last 30 days?: No Have you Ever Experienced Previous Episodes of Alcohol Withdrawal?: No Have you ever Experienced Withdrawal Seizures?: No Have you ever Experienced Delirium Tremens(DT)s?: No Have you ever undergone Alcohol Rehabilitation Treatment (i.e, inpt ot outpatient treatment programs)?: No Have you ever Experienced Blackouts?: No Have you ever Combined Alcohol with other Downers within the last 90 days?: No Have you ever Combined Alcohol with any other Substance of Abuse during the last 90 days?: No Positive Blood Alcohol level on Presentation? [PCS.BAL]: No Evidence of Increased Autonomic Activity (i.e. HR>120, tremor, sweating, agitation, nausea)?: No Result: 0
[2021-01-02 11:04] LABS: Creatine Kinase 1044 U/L (26-192)
--- NOTE | 2021-01-02 11:19 | PT.INTREAT ---
Date of service: 01/02/21 Time of Service: 09:40 PT Notes Visit Reasons: Traumatic Fall,Leukocytosis Inpatient Physical Therapy Treatment Note [facility] Date: 01/02/2021 PRECAUTIONS: Fall, activity as tolerated SUBJECTIVE: Shira reports feeling very tired today. She states that she was napping and does not want to participate in PT right now. She states you can be very annoying when encouraged by this therapist to do her best so that she can attain her goal to return to home when medically cleared. OBJECTIVE: Following discussion with nursing, post-p.m. session, patient has been cleared for independent transfers and short-distance ambulation with FWW. PAIN: Patient c/o left medial thigh pain BED MOBILITY/TRANSFERS Sit-stand: S in a.m.; I in p.m. Stand-sit: S in a.m.; I in p.m. Bed-Chair: S in a.m.; I in p.m. Chair-bed: S in a.m.; I in p.m. GAIT Assistive Device: FWW Weight bearing: Full Assist: S Distance: 140' in a.m.; 50' x2 in p.m. Deviation: SOB, pain (in a.m.), wheelchair follow, increased fatigue, seated rest (in p.m.) THEREX: Patient was instructed in a seated and long-sitting LE strengthening and stabilization program, as per flow sheet. Patient requires rests between each exercise due to fatigue, pain and SOB. She demonstrates global weakness. ASSESSMENT: Patient tolerated session with complaint of L medial thigh pain with ther ex and gait training. She was able to tolerate a progression in gait distance with FWW support and supervision. She demonstrates significant deconditioning, although does not require assist with transfers at this time. PLAN: Continue with global strengthening and general conditioning for improved activity tolerance and mobility. TREATMENT CODE/TIME: Session 1: 18 minutes; [id number] (09:40) Session 2: 14 minutes; [id number] (11:39)
[2021-01-02 15:30] VITALS: BP 101/69; PULSE 82; RESP 18; TEMP 36.4; O2SAT 97
--- NOTE | 2021-01-02 18:59 | PDOC.CMPRO ---
- If Service Date Differs Date of service: 01/02/21 Time of Service: 18:59 Care Management Progress Note S/O: Shira was sleeping when CM attempted to meet with her today. Per PT, she is improving, walking 140' this morning, and not requiring assistance with transfers. Per provider, she may be able to return home in the next day or two if she continues to improve both medically and physically. Shira has expressed the desire to return home, but will go to SNF if necessary. Her family would also prefer her to be home, if possible, as they feel she will progress better at home. SNF referrals are pending, as a back up plan. CM will continue to follow. A: Shira is a 70 year old female admitted to [facility] on 12/28/20 for traumatic fall, leukocytosis. P: Shira will go to short term rehab vs home with support when medically cleared. Her discharge plan will depend on how much she improves functionally over the course of this admission. She will be transported via private vehicle by family. She will follow up with her PCP and discharge plan of care. CM will continue to follow. Kitty Lovett [facility]
[2021-01-02] MEDS: Cyclobenzaprine 10 MG TAB PO (19:39)
[2021-01-02] MEDS: Docusate Sodium 100 MG CAP PO (19:40)
[2021-01-02] MEDS: Ferrous Sulfate 325 MG TAB PO (19:40)
[2021-01-02 19:55] VITALS: BP 132/81; PULSE 82; RESP 19; TEMP 36.8; O2SAT 98
[2021-01-02] MEDS: Insulin Glargine 300 UNITS/3 ML PEN 12 UNITS SC (21:01)
[2021-01-03 03:03] VITALS: BP 141/79; PULSE 73; RESP 19; TEMP 36.2; O2SAT 97
[2021-01-03] MEDS: Pantoprazole 40 MG TABCR PO (06:51)
--- NOTE | 2021-01-03 06:59 | DIABASSESS_ITS ---
Date of service: 01/03/21 Time of Service: 06:59 Diabetes Note NOTE: PO intake is improving. Of note, weight has been increasing steadily and is now up 10.5% since admission. Unsure of the etiology of this weight gain- just pointing it out. Blood sugars still not at target. Glargine has been increased to 12 units per day. Given her weight of 148 kg, she will likely need to work her way up to at least 40 units of Glargine. Correction insulin is on a sensitive scale. Would recommend the following: Increase Glargine to 20 units per day and likely work up to 40 units per day. Change correction scale insulin to an insulin resistant scale. Will continue to follow progress. Time Spent in Nutritional Counseling and Treatment: 0
[2021-01-03 07:50] VITALS: BP 112/79; PULSE 87; RESP 20; TEMP 35.9; O2SAT 96
[2021-01-03] MEDS: Polyethylene Glycol 3350 17 GM PACKET PO (08:10)
[2021-01-03] MEDS: Acetaminophen 325 MG TAB 650 MG PO ×3 (08:10→16:45)
[2021-01-03] MEDS: Ferrous Sulfate 325 MG TAB PO (08:10)
[2021-01-03] MEDS: Multivitamin w/Minerals TAB 1 TAB PO (08:10)
[2021-01-03] MEDS: Escitalopram 20 MG TAB PO (08:10)
[2021-01-03] MEDS: Cholecalciferol (Vitamin D3) 1,000 UNIT TAB 2000 UNITS PO (08:10)
[2021-01-03] MEDS: Folic Acid 1 MG TAB PO (08:10)
[2021-01-03] MEDS: Insulin Aspart 300 UNITS/3 ML PEN SC ×2 (08:11→11:48)
--- NOTE | 2021-01-03 08:56 | RESPIRATORY ---
Pt's baseline O2 needs are 2L via nasal cannula when asleep. Pt does not use O2 during the day or with ambulation. CODY:
[2021-01-03 09:56] LABS: BUN 28 mg/dL (7-18); CREATININE 1.5 mg/dL (0.55-1.02); Calcium 8.5 mg/dL (8.5-10.1); Chloride 102 mmol/L (98-107); Creatine Kinase 518 U/L (26-192); Estimated GFR 34.53 (mL/min/1.73m2); Glucose 270 mg/dL (74-106); Potassium 4.7 mmol/L (3.5-5.1); Sodium 139 mmol/L (136-145)
--- NOTE | 2021-01-03 10:24 | DSE_ITS ---
Date of service: 01/03/21 Time of Service: 10:24 DS: Diagnosis Discharge Diagnosis (1) Rhabdomyolysis: Start date: 01/03/21 Start time: 10:30 Status: Acute Asessment and Plan: Improving, near baseline. Patient is in the 500's after being greater than 10,000, on admission, she was given 200 ml IVF for days on admission she started to respond immediately and CPK was trending down. Kidneys were not so she was given several doses of lasix in which her kidneys were responsive. She was found and had to extricated from her porch after being stuck for hours. Todays cpk value is 518 She is being discharged home with HH PT/OT F/U with PCP in 1 week (2) Acute kidney injury: Start date: 01/03/21 Start time: 10:29 Status: Resolved Asessment and Plan: This was d/t rhabdo from falling through porch and being stuck in the same position for hours as above (3) Traumatic injury of left lower extremity: Start date: 01/03/21 Start time: 10:29 Status: Acute Asessment and Plan: Improving, no dislocation or fx. from above. (4) Right ankle injury: Start date: 01/03/21 Start time: 10:27 Status: Acute Asessment and Plan: Was due from fall through porch, no dislocation or fx. required a lot of motivation for working with PT. She was able to ambulated double the distance of her home. (5) COPD (chronic obstructive pulmonary disease): Start date: 01/03/21 Start time: 10:26 Status: Chronic Asessment and Plan: Oxygen dependent, stable, not exacerated. (6) Hypertension: Start date: 01/03/21 Start time: 10:26 Status: Chronic Asessment and Plan: Continue home regimen Was variable elevated in setting of pain (7) Tobacco abuse: Start date: 01/03/21 Start time: 10:25 Status: Chronic Asessment and Plan: In patients best interest to stop as she is oxygen dependent She was on nicotine replacement while in the hospital (8) Diabetes mellitus: Start date: 01/03/21 Start time: 10:25 Status: Inactive Asessment and Plan: continue home medications discussed with Dr. Boggs Discharge Plan Disposition Patient Disposition: HOME W/HOME HEALTH SERVICE Condition: Stable Discharge Details Reason For Visit: Traumatic Fall,Leukocytosis Admit Date/Time: 12/28/20 09:15 Admit Provider: Nash Montes Attending Provider: Nash Montes Primary Care Provider: Liliam Noble [facility] Course Hospital Course: 70 y.o female that presented to the ED after falling through her front porch and entrapped for apporx. 3 hours. She had to be cut out of her porch. PMH of COPD with oxygen dependence, initially hypotensive in ED she received 2 L of IVF, ED in labs initially CK slight however WBC of 31 and again on repeat 26, Bun and Creatinine elevated above baseline as well. She was admitted to m/s with IVF her cpk trended down, she was found to have no dislocations or fx. She was slow to motivate and work with PT. RHONDA improved to baseline. Anemia studies done revealed low iron, folate, she was placed on supplementation and should continue at home. She was able to double the length of her home with PT yesterday therefore she was deemed safe for discharge with PT/OT. She should hold crestor at this time until f/u with PCP. Home Meds and New Rx's Prescriptions: New ferrous sulfate 325 mg (65 mg iron) Tablet 325 mg PO BID Qty: 60 RF: 0 tramadol 50 mg Tablet 50 mg PO Q4H PRN PRNQty: 20 RF: 0 folic acid 1 mg Tablet 1 mg PO DAILY Qty: 30 RF: 0 pantoprazole [Protonix] 40 mg tablet,delayed release (DR/EC) 40 mg PO DAILY Qty: 30 RF: 0 Continued ipratropium-albuterol 0.5 mg-3 mg(2.5 mg base)/3 mL solution for nebulization 3 ml inhalation Q6H PRNRF: 0 omega-3 fatty acids 1,000 mg Capsule 1,000 mg PO DAILY RF: 0 hydrochlorothiazide 50 mg Tablet 12.5 mg PO DAILY RF: 0 escitalopram oxalate [Lexapro] 20 mg Tablet 20 mg PO DAILY RF: 0 cholecalciferol (vitamin D3) [Vitamin D3] 2,000 unit Capsule 2,000 unit PO DAILY RF: 0 lisinopril 10 mg Tablet 10 mg PO DAILY RF: 0 rosuvastatin [Crestor] 10 mg Tablet 10 mg PO DAILY RF: 0 cinnamon bark [Cinnamon] 500 mg Capsule 1,000 mg PO DAILY RF: 0 albuterol sulfate [ProAir HFA] 90 mcg/actuation Hfa Aerosol Inhaler 2 puff Inhalation Q6H PRN PRNRF: 0 glipizide [Glucotrol XL] 5 mg Tablet Extended Release 24hr 5 mg PO BID RF: 0 cyclobenzaprine 10 mg Tablet 10 mg PO TID PRN PRNRF: 0 aspirin [Aspir-81] 81 mg Tablet,Delayed Release (Dr/Ec) 81 mg PO DAILY RF: 0 Trelegy Ellipta 100-62.5-25 mcg blister with device INHALATION RF: 0 No Action (DME) Oxygen Tank See Rx Instructions .ROUTE .MEDSUPPLY Qty: 1 RF: 0 (DME) nebulizers misc See Dose Instructions .ROUTE .MEDSUPPLY Qty: 1 RF: 0 Discharge Instructions Instructions: Acute Kidney Injury (DC), Rhabdomyolysis (DC), Contusion in Adults (DC), Anemia (DC) Additional Instructions: Take folate and iron every day, iron twice a day Hold your crestor until you follow up with your PCP Follow up with your PCP in 1week Drink plenty of fluids Stop smoking Activity:: Activity as Tolerated Equipment/Supplies:: No Equipment Needed Diet:: Heart healthy/low carb Discharge Orders Discharge Orders: Discharge Order (Routine); Ordered 01/03/21 Ordered By: Triny Mina DS: Summary Time Spent with Patient providing and/or coordinating discharge services: Greater than 30 minutes Status at Discharge Functional status at discharge: uses cane/walker Overall status at discharge: patient is progressing back to baseline Mental Status: mental status grossly normal Speech and Movement: speech and movement normal Mood: congruent mood Affect: normal affect Exam Const Nutritional Appearance: obese Orientation: alert, awake and oriented x3 Eyes General: appearance normal, both eyes and all related structures Pupils: PERRL EOM: EOM intact bilaterally Neck Lymphatic: no lymphadenopathy noted Resp Effort & Inspection: able to speak in complete sentences Auscultation: diminished lung sounds Cardio Jugular venous pressure: no JVD Rate: regular rate Rhythm: regular rhythm Heart Sounds: S1 normal and S2 normal GI Inspection: obesity Palpation: soft and no hepatosplenomegaly Auscultation: normal bowel sounds Skin General skin exam: other Neuro General: patient alert, patient awake and patient oriented x3 Cognition: normal cognition Speech: speech normal Extrem General: clubbing, cyanosis or edema noted and edema Laterality: left Right lower extremity: ankle (pain with flexion) Details: edema and foot Left lower extremity: normal to inspection and edema Psych Mental Status: mental status grossly normal Speech and Movement: speech and movement normal Mood: congruent mood Affect: normal affect DS: Data Vitals/I&O Vitals and I&O: Vital Signs Temperature 35.9 C L 01/03/21 07:50 Temperature Source Tympanic 01/03/21 07:50 Pulse 87 01/03/21 07:50 Pulse Rhythm Regular 01/03/21 09:16 Pulse 85 12/27/20 20:40 Respiratory Rate 20 01/03/21 07:50 Respiratory Effort Non-Labored 01/03/21 09:16 Respiratory Depth Normal 01/03/21 09:16 Respiratory Pattern Normal 01/03/21 09:16 Blood Pressure 112/79 01/03/21 07:50 Blood Pressure Mean 61 12/27/20 20:31 Blood Pressure Position Supine 12/27/20 19:19 Pulse Oximetry 96 01/03/21 07:50 Oxygen Delivery Method Nasal Cannula 01/03/21 07:50 Oxygen Flow Rate 2 01/03/21 07:50 Pain Level 0 01/03/21 07:50 Comment 12/30/20 03:00 Intake & Output 01/02/21 01/02/21 01/03/21 11:59 23:59 11:59 Intake Total 320 / 680 360 / 680 Output Total 825 / 1225 400 / 1225 300 / 300 Balance -505 / -545 -40 / -545 -300 / -300 Weight 148.3 kg Intake: Oral 320 / 680 360 / 680 Output: Urine 825 / 1225 400 / 1225 300 / 300 Other: Urine Color Yellow Light Ramila Yellow Urine Appearance Clear Clear Clear Urine Odor Normal Normal Stool Occult Blood Negative Stool Size Small Stool Characteristics Soft Voiding Methods Bedside Commode Bedside Commode Data Completed and Pending Completed studies during hospitalization [Text1]: : 2Age: 70 Exam(s) PROCEDURE INFORMATION: Exam: XR Right Knee Exam date and time: 12/27/2020 9:02 PM Age: 70 years old Clinical indication: Injury or trauma; Fall; Blunt trauma; Knee; Right TECHNIQUE: Imaging protocol: XR Right knee. Views: 3 views. COMPARISON: No relevant prior studies available. FINDINGS: Bones/joints: Moderate to severe arthritic degeneration. No acute fracture. No dislocation. No joint effusion. Soft tissues: No soft tissue foreign body or soft tissue emphysema. IMPRESSION: 1. Arthritic degeneration. 2. No acute fracture or dislocation. 3. No soft tissue foreign body. : 1950ge: 70 Exam(s) PROCEDURE INFORMATION: Exam: XR Left Knee Exam date and time: 12/27/2020 7:56 PM Age: 70 years old Clinical indication: Injury or trauma; Fall; Blunt trauma; Knee; Left TECHNIQUE: Imaging protocol: XR Left knee. Views: 3 views. COMPARISON: CR LEFT KNEE 3 VIEW COMPLETE 01/23/2016 9:12 AM FINDINGS: Bones/joints: Moderate medial joint and patellofemoral joint space degenerative disease. No fracture. No dislocation. Soft tissues: Nonspecific soft tissue swelling surrounding the knee. No foreign body. IMPRESSION: 1. Degenerative arthritis of the left knee. 2. No acute fracture or dislocation. 3. Nonspecific soft tissue swelling. : 1950ge: 70 Exam(s) PROCEDURE INFORMATION: Exam: XR Left Femur Exam date and time: 12/27/2020 7:56 PM Age: 70 years old Clinical indication: Injury or trauma; Fall; Blunt trauma; Thigh or upper leg; Left TECHNIQUE: Imaging protocol: XR Left femur. Views: 2 views. COMPARISON: CR XR KNEE LT 3V AP,LAT,ARJUN 12/27/2020 8:59 PM FINDINGS: Bones/joints: Unremarkable. No acute fracture. Soft tissues: Unremarkable. IMPRESSION: 1. No acute findings. 2. No fracture. No dislocation. 3. No soft tissue foreign body. : 1950ge: 70 Exam(s) PROCEDURE INFORMATION: Exam: XR Pelvis Exam date and time: 12/27/2020 7:56 PM Age: 70 years old Clinical indication: Injury or trauma; Fall; Blunt trauma (contusions or hematomas); Bilateral; Pelvic region TECHNIQUE: Imaging protocol: XR pelvis. Views: 1 or 2 view. COMPARISON: CR XR FEMUR LT 12/27/2020 9:02 PM FINDINGS: Bones/joints: Degenerative lumbosacral spine. No acute fracture. No pelvic diastasis Soft tissues: Unremarkable. IMPRESSION: 1. No acute findings. 2. No fracture or diastasis. 3. Degenerative lumbosacral spine disease. : 2Age: 70 Exam(s) PROCEDURE INFORMATION: Exam: CT Abdomen And Pelvis Without Contrast Exam date and time: 12/27/2020 10:16 PM Age: 70 years old Clinical indication: Abdominal pain TECHNIQUE: Imaging protocol: Computed tomography of the abdomen and pelvis without contrast. COMPARISON: CR XR PELVIS AP 12/27/2020 9:08 PM FINDINGS: Lungs: Lung bases are clear. Pleural spaces: No pleural effusion. Heart: Normal heart size. No pericardial effusion. Liver: Mild diffuse fatty liver change. No hepatic enlargement. Benign calcifications in the right hepatic lobe suggesting an old granulomatous type process. Gallbladder and bile ducts: Small gallstones. No biliary ductal dilatation. No gallbladder wall thickening. Pancreas: Severe pancreatic atrophy. Multiple punctate pancreatic calcifications suggesting chronic pancreatitis. No acute inflammation. Spleen: The spleen is normal in size, contour and attenuation. Adrenal glands: Benign-appearing left adrenal nodule measuring 2.0 x 1.2 cm. Series 2, image 28. There are some negative internal Hounsfield units consistent with a lipid rich adenoma. Kidneys and ureters: Right lower pole parenchymal lesion measuring 2.2 cm. See coronal series 3, image 67. This is indeterminate in appearance by noncontrast CT, but likely a cyst. A right upper pole partially exophytic renal focus measuring 12 mm is seen on coronal image 75. A follow-up nonemergent outpatient renal ultrasound is suggested. Stomach and bowel: Gastric morphology is unremarkable. No edema. No gastric outlet obstruction. Small hiatal hernia. No acute features.Small bowel loops are normal in course and caliber. There is no mucosal edema or bowel wall thickening. No obstructive features. Large bowel with scattered diverticulosis. No acute diverticulitis. No large bowel obstruction. No edema. No masslike features. Formed feces. Appendix: A non inflamed appendix is seen. Series 2, images 58 through 51 retrocecal in location. Intraperitoneal space: Unremarkable. No free air. No significant fluid collection. Vasculature: Atherosclerotic abdominal aorta. No aneurysm. Lymph nodes: Unremarkable. No enlarged lymph nodes. Urinary bladder: Unremarkable as visualized. Reproductive: The uterus and adnexa are unremarkable in appearance. There are no dominant adnexal cysts or masslike features. There are no inflammatory features. No uterine mass evident. Bones/joints: Degenerative lumbar spine disease. Multilevel severe disc degeneration and facet degeneration. Multilevel lumbar spinal stenosis. Soft tissues: Abdominal wall soft tissues are unremarkable. IMPRESSION: 1. Fatty liver change and benign hepatic calcifications likely representing old granulomatous type disease. 2. Features of chronic pancreatitis with atrophy and multiple pancreatic calcifications. No acute inflammation or mass. 3. Gallstones. No acute biliary tract findings. 4. Colonic diverticulosis. No acute diverticulitis. 5. Degenerative lumbar spine disease. 6. Benign left adrenal nodule consistent with a lipid rich adenoma. 7. 2 right renal lesions as described above likely representing cysts, but indeterminate by noncontrast CT. Recommend follow-up nonemergent ultrasound. Exam(s) XR ANKLE RT COMPLETE XR TIB/FIB RT EXAM: XR ANKLE RT COMPLETE CLINICAL HISTORY: right ankle pain after fall TECHNIQUE: COMPARISON: CR XR TIB/FIB RT from 12/28/2020 CR XR TIB/FIB RT from 12/28/2020 FINDINGS: Three views of the ankle and four views of the leg were obtained. There is no evidence of acute fracture. There is slight varus tilt of the talus. There is apparent slight anterior subluxation of the talus with respect to the tibia noted on the lateral view. Mild subchondral sclerosis noted at the tibiotalar joint and at the subtalar joints. IMPRESSION: Degenerative changes, question instability at tibiotalar joint, no evidence of acute fracture. Exam(s) US LOWER EXTREMITY VENOUS LT EXAM: US LOWER EXTREMITY VENOUS LT CLINICAL HISTORY: traumatic fall. TECHNIQUE: Ultrasound performed using standard protocol. COMPARISON: US US ECHOCARDIOGRAM from 07/17/2020 FINDINGS: Duplex venous ultrasound was performed according to the usual protocol. The deep veins are freely compressible throughout and there is normal flow augmentation with manual calf compression. 2D and Doppler evaluation are unremarkable. Note is made of a Lema's cyst measuring about 4 x 3.6 x 1.8 cm in diameter. IMPRESSION: No evidence of deep venous thrombosis of the left lower extremity. Exam(s) US SOFT TISSUE EXTREMITY EXAM: US SOFT TISSUE EXTREMITY CLINICAL HISTORY: r/o hematoma right leg. TECHNIQUE: Ultrasound was performed using standard protocol. COMPARISON: US US LOWER EXTREMITY VENOUS LT from 12/28/2020 FINDINGS: Sonographic assessment utilizing grayscale and color Doppler imaging was performed and targeted to the area of clinical concern. Scanning was performed in an area of bruising anterior right knee area. Submitted images reveal subcutaneous emphysema but without a discrete mass Exam(s) US SOFT TISSUE EXTREMITY EXAM: US SOFT TISSUE EXTREMITY CLINICAL HISTORY: r/o hematoma. TECHNIQUE: Ultrasound was performed using standard protocol. COMPARISON: US US SOFT TISSUE EXTREMITY from 12/30/2020 FINDINGS: Sonographic assessment utilizing grayscale and color Doppler imaging was performed and targeted to the area of clinical concern. This is in the left distal medial thigh There is subcutaneous edema evident but no discrete fluid collection or solid mass evident. IMPRESSION: Subcutaneous edema. No discrete mass nor fluid collection in the area scanned. Labs on day of discharge: Labs from last 24 hours 01/03/21 01/02/21 09:24 06:10 Sodium 139 Potassium 4.7 Chloride 102 Carbon Dioxide 35.0 H Anion Gap 2.0 L BUN 28 H Creatinine 1.5 H Estimated GFR/1.73 m2 34.53 Glucose 270 H Calcium 8.5 Creatine Kinase 518 H 1044 H PFSH Medical History COPD with acute exacerbation Dental abscess Depression Diabetes mellitus Discharge planning issues Hypertension Personal history of nicotine dependence Tobacco abuse Traumatic injury of left lower extremity Social History Smoking/Tobacco Use Status: Former Tobacco Use Smoking risk assessment performed?: Yes Alcohol Intake: current Alcohol Intake frequency: holidays/special occasions only Drug use: Never Do you feel safe at home: Yes (declines assistance) Do you feel safe in your relationship?: Yes
--- NOTE | 2021-01-03 10:27 | CMDISCH_ITS ---
- If Service Date Differs Date of service: 01/03/21 Time of Service: 12:34 LACE Index Scoring Tool - Questions: Length of Stay (in days): 4 - 6 Acuity (Admit via E.D.?): Yes Comorbidities: Chronic Pulmonary Disease E.D. Visits: 2 - Answers: Total Score: 11 Risk of Readmission: High Risk Care Management Discharge Reason for Hospitalization: Traumatic fall, Leukocytosis Discharge Plan: Shira will discharge home when ready per MD. She will have new orders for [facility] RN/PT/OT/HOME HEALTH OCCUPATIONAL THERAPIST upon discharge. Her daughter Effie reports she will coordinate family support and transport as she was not anticipating Shira would discharge home today. CM extensively reviewed clinical status (PT and DIETETICS TEACHER cleared Shira for DC). Patient/Family Education Needs: Review discharge instructions, discuss Ask Me Three. Services Needed at Discharge: Home Health Care Services (Vaibhav RN/PT/OT/HOME HEALTH OCCUPATIONAL THERAPIST)
--- NOTE | 2021-01-03 11:04 | PDOC.HHF2F ---
Home Health Certification Home Health Certification: 1. Encounter Date and Reason I certify that Shira Kelly was seen by Triny Mina on 01/03/21 and that I had a afza-my-hnbh encounter with this patient that meets the physician face to face encounter requirements. 2. Clinical Findings Supporting Skilled Need and Homebound Status I certify that home health services are medically necessary, include either intermittent nursing home and/or physical/speech therapy, and that this patient is homebound in that absences from the home require considerable and taxing effort and are infrequent or of short duration, or are attributable to the need to receive medical care. [X] (a) Attached documentation from encounter provides clinical findings supporting skilled need and homebound status (including what assistance patient requires to leave the home). The encounter with the patient was in whole, or in part, for the following medical condition, which is the primary reason for home health care: Traumatic Fall,Leukocytosis Physical Therapy: patient would benefit from PT/OT for further management for gait, stability,strength, and increased mobilty Homebound: unable to leave home without assisstnace 3. Certification and Authentication I certify that I composed the above information based on my clinical judgement relating to this patient's medical condition and, if applicable, clinical findings communicated to me by the NPP or inpatient physician who performed the Home Health Referral. All further orders will be obtained through _Liliam suresh (Community Based Physician - PCP)
--- NOTE | 2021-01-03 13:46 | CHAPLAIN ---
Shira will be discharged later today. I stopped by to give her a comfort shawl before she's discharged. She was on the phone with her daughter working out a support plan for going home. Shira seems relieved to be going home, but also tentative about being home on her own. Her daughte, Effie, was explaining on the phone Shira, how she can't stay in the hospital if there are not medical reasons for her to be here, and that's why she's being discharged today.
--- NOTE | 2021-01-03 18:00 | PT.INDS ---
Date of service: 01/03/21 PT Notes Visit Reasons: Traumatic Fall,Leukocytosis Physical Therapy Inpatient Discharge Summary Date: 01/03/2021 Dates of service: 12/28/2020 through 01/02/2021 This is a clinical summary of care provided for the duration of dates listed above. No charge was made in the completion of this documentation. Referring Doctor: Triny Mina NP PT Orders: PT CONSULT: Eval/Treat. Precautions: Fall. Standard. Activity as tolerated. Patient Profile/Admitting Diagnosis: Shira is a 70-year-old female who presented to the ED on 12/27/2020 due to a fall. Patient is diagnosed medical injury of left LE and is currentlyy placed on DVT prophylaxis PMHX: Medical History COPD with acute exacerbation Depression Tobacco abuse Social History/Home Situation: Lives alone. Did not use any assistive device for all mobility ADLs prior to this admission. Equipment Owned/DME: None Subjective: NT. See most recent CLAIMS SERVICE REPRESENTATIVE notes. Objective: General Observation: NT. See most recent CLAIMS SERVICE REPRESENTATIVE notes. Mental Status: NT. See most recent CLAIMS SERVICE REPRESENTATIVE notes. Pain: NT. See most recent CLAIMS SERVICE REPRESENTATIVE notes. ROM: Right Upper Extremity: Shoulder Flexion WFL. Shoulder abduction WFL. Elbow flexion WFL. Wrist flexion WFL. Functional opening and closing of hand WFL. Left Upper Extremity: Shoulder Flexion WFL. Shoulder abduction WFL. Elbow flexion WFL. Wrist flexion WFL. Functional opening and closing of hand WFL. Right Lower Extremity: Able to slide heel to about 30 degrees of hip and knee flexion bit hamstring goes into painful spasms. Unable to dorsiflex at the ankle and unable to extend toes due to pain. Left Lower Extremity: Hip flexion WFL. Hip abduction WFL. Knee flexion WFL. Ankle dorsiflexion WFL. Ankle plantarflexion WFL. Strength: Right Upper Extremity: Shoulder flexors 4-/5. Shoulder abductors 4-/5. Elbow flexors 4-/5. Elbow extensors 4-/5. Lining Finisher strong. Left Upper Extremity: Shoulder flexors 4-/5. Shoulder abductors 4-/5. Elbow flexors 4-/5. Elbow extensors 4-/5. Lining Finisher strong. Right Lower Extremity: Hip flexors grossly 3-/5. Hip abductors grossly 3-/5. Knee flexors grossly 3-/5. Knee extensors grossly 3-/5. Ankle dorsiflexors 1/5. Ankle plantarflexors 1/5. Left Lower Extremity: Hip flexors grossly 3-/5. Hip abductors grossly 3-/5. Knee flexors grossly 3-/5. Knee extensors grossly 3-/5. Ankle dorsiflexors grossly 3/5. Ankle plantarflexors grossly 3 /5. Bed Mobility/Transfers: Supine to sit independent Sit to supine independent Sit to stand independent Stand to sit independent Bed to chair independent Chair to bed independent Gait: Tolerates up to 140 feet of level surface ambulation with fentanyl requiring full weightbearing with supervision. Mild SOP. Increased fatigue. required 1 seated rest. Balance: Static Sitting: Normal Dynamic Sitting: Normal Static Standing: Fair Dynamic Standing: Fair Assessment: Patient has demonstrated significant functional mobility outcome during this episode seen by goal status below. patient lives alone and will require continued rehabilitation to achieve highest mobility level. Patient will benefit from home health PT services in order to progress mobility level using least restrictive assistive ambulatory device, assess home safety, identify additional equipment needs, and establish a functional maintenance program that will increase ability of patient to remain at home. Goals: Goals X1 week 1. Supine-Sit CGA MET 2. Sit-Supine CGA MET 3. Sit-Stand CGA MET 4. Stand-Sit CGA MET 5. Bed-Chair CGA MET 6. Chair-Bed CGA MET 7. Independent gait on level surface with use of FWW for at least 30 feet without report of pain nor dyspnea NOT MET 8. Independent stair negotiation while holding onto B rails for at least 5 steps without report of pain nor dyspnea NOT MET 9. Fair static and dynamic standing balance/tolerance NOT MET DISCHARGE RECOMMENDATIONS: Patient will benefit from home health PT services in order to progress mobility level using least restrictive assistive ambulatory device, assess home safety, identify additional equipment needs, and establish a functional maintenance program that will increase ability of patient to remain at home. TREATMENT CODE/TIME: RI Thank you for the opportunity to participate in the care of this patient. Neelam Gan PT, DPT, CLT [facility] [place], [place]
== END 2021-01-03 17:05 | disposition home health service (06) | DRG 565 ==
LOC: ER 12-28 00:12 → MS 12-28 01:22
PROVIDERS: Internal Medicine; Nurse Practitioner Acute Care; Nurse Practitioner Family; Admitting Provider Family Medicine; Emergency Provider Registered Nurse Emergency; PCP Nurse Practitioner Family; Visit Provider Family Medicine
DX: T79.6XXA Traumatic ischemia of muscle, initial encounter (principal); Z68.43 Body mass index [BMI] 50.0-59.9, adult; N17.9 Acute kidney failure, unspecified; S93.01XA Subluxation of right ankle joint, initial encounter; S96.911A Strain of unspecified muscle and tendon at ankle and foot level, right foot, initial encounter; J43.2 Centrilobular emphysema; I10 Essential (primary) hypertension; F17.210 Nicotine dependence, cigarettes, uncomplicated; E11.9 Type 2 diabetes mellitus without complications; F32.A Depression, unspecified; S80.02XA Contusion of left knee, initial encounter; S70.12XA Contusion of left thigh, initial encounter; S80.12XA Contusion of left lower leg, initial encounter; S80.01XA Contusion of right knee, initial encounter; W13.3XXA Fall through floor, initial encounter; E66.9 Obesity, unspecified; D64.9 Anemia, unspecified; Z79.84 Long term (current) use of oral hypoglycemic drugs; Z20.822 Contact with and (suspected) exposure to COVID-19
CPT/HCPCS: 36415; 51701; 73552; 73562; 76881; 80048; 80053; 82550; 84520; 85027; 86850; 86900; 86901; 87635; 93005; 96361; 96374; 96376; 97110; 97163; 97530; 99222; 99285; 72170; 73590; 73610; 74176; 81003; 81015; 82565; 82607; 82728; 82746; 83036; 83540; 83550; 83605; 83735; 84484; 85014; 85018; 85025; 93010; 93971; 99232; 99233; 99239; G0378; J1650; J1940; J2270; J2405; J3010

== ENCOUNTER 2021-01-21 21:27 | Outpatient (REF) | payer MEDICARE, SELFPAY ==
[2021-01-21 20:49] LABS: Anion Gap 7.5 mmol/L (3-11); BUN 17 mg/dL (7-18); CO2 32.5 mmol/L (21.0-32.0); CREATININE 1.5 mg/dL (0.55-1.02); Calcium 9.1 mg/dL (8.5-10.1); Chloride 98 mmol/L (98-107); Creatine Kinase 78 U/L (26-192); Estimated GFR 34.53 (mL/min/1.73m2); Glucose 245 mg/dL (74-106); Potassium 4.3 mmol/L (3.5-5.1); Sodium 138 mmol/L (136-145)
== END 2021-01-21 21:28 | disposition home or self-care (01) ==
LOC: NCHCN 21:27
PROVIDERS: PCP Nurse Practitioner Family; Visit Provider Nurse Practitioner Family
DX: N28.9 Disorder of kidney and ureter, unspecified (principal); J44.9 Chronic obstructive pulmonary disease, unspecified
CPT/HCPCS: 80048; 82550

== ENCOUNTER 2021-05-27 02:58 | Outpatient (CLI) | payer MEDICARE, SELFPAY ==
--- NOTE | 2021-05-27 13:20 | DI.CTLCSR_ITS ---
Exam(s) CT CHEST LUNG CANCER SCREEN EXAM: CT CHEST LUNG CANCER SCREEN CLINICAL HISTORY: Screening for lung cancer,FORMER SMOKER, Z87.891 TECHNIQUE: Imaging Protocol: Axial computed tomography images with coronal and sagittal reformatted images were created and reviewed COMPARISON: CT CT CHEST LUNG CANCER SCREEN from 02/28/2020 FINDINGS: Tracheobronchial tree: Patent where visualized. Mediastinum and Breana: No dominant adenopathy or fluid collection. Pulmonary parenchyma: No consolidation or dominant measurable mass. Stable areas of scarring greates t in the lingula. Lung Nodules: None. Pleura: No effusion or pneumothorax. Heart: The heart is not dilated. coronary artery calcifications are seen. Aorta: Thoracic aorta non-dilated. Mild atherosclerotic changes. Upper abdomen: Unremarkable. Bones: Degenerative changes and mild scoliosis.. Soft Tissues: Unremarkable. IMPRESSION: Normal low dose CT lung screening Lung RADS Cat 1 - Negative: No nodules and definitely benign nodules Lung-RADS 1.0 CATEGORIES: Category 0 - Prior chest CT exam(s) being located for comparison. Category 1 - Annual screening in 12 months. No nodules or definitely benign nodules. Category 2 - Annual screening in 12 months. Benign appearance. Nodules with low likelihood of becomin g active cancer. Category 3 - 6-month follow-up. Probably benign. Short-term follow-up suggested. Nodules with low lik elihood of becoming active cancer. Category 4A - 3-month follow-up and CT/PET if >8 mm in size. Suspicious finding. Findings which requi re additional testing. Category 4B - Findings which require additional testing and tissue sampling. Category 4X - Category 3 or 4 nodules with additional features or imaging findings that increases the suspicion of malignancy. Modifier S- Potentially clinically significant findings (non lung cancer) RADIATION DOSE DELIVERED: 100.93mGy.cm Total DLP 2.21mGy CTDIvol DATA REPOSITORY: All CT scans at this facility are submitted to the National Radiology Data Registry (NRDR) Dose Index Registry (DIR) with the [employer] (ACR). RADIATION OPTIMIZATION: All CT scans at this facility use at least one of these dose optimization te chniques: automated exposure control; mA and/or kV adjustment per patient size (includes targeted exa ms where dose is matched to clinical indication); or iterative reconstruction.
== END 2021-05-27 03:18 ==
PROVIDERS: PCP Nurse Practitioner Family; Visit Provider Student in an Organized Health Care Education/Training Program
DX: Z87.891 Personal history of nicotine dependence (principal); Z12.2 Encounter for screening for malignant neoplasm of respiratory organs
CPT/HCPCS: 71271

== ENCOUNTER 2021-05-27 12:11 | Outpatient (REF) | payer MEDICARE, SELFPAY ==
[2021-05-27 20:55] LABS: Iron 92 ug/dL (50-170); Total Iron Binding Capacity 304 ug/dL (250-450); Transferrin Sat 30 % (15-50)
[2021-05-27 21:00] LABS: Hemoglobin A1C 8.5 % (<5.7)
[2021-05-27 21:10] LABS: ALT 18 U/L (14-59); AST 14 U/L (15-37); Albumin 3.1 g/dL (3.4-5.0); Alkaline Phosphatase 90 U/L (46-116); Anion Gap 9.1 mmol/L (3-11); BUN 25 mg/dL (7-18); Bilirubin, Total 0.5 mg/dL (0.2-1.0); CO2 28.9 mmol/L (21.0-32.0); CREATININE 1.6 mg/dL (0.55-1.02); Calcium 8.5 mg/dL (8.5-10.1); Chloride 99 mmol/L (98-107); Estimated GFR 31.96 (mL/min/1.73m2); Ferritin 61 ng/mL (8-252); Glucose 209 mg/dL (74-106); Potassium 4.5 mmol/L (3.5-5.1); Sodium 137 mmol/L (136-145); TSH (W/Ref FT4) 1.48 uIU/mL (0.36-3.74)
== END 2021-05-27 12:12 | disposition home or self-care (01) ==
LOC: NCHCN 12:11
PROVIDERS: PCP Nurse Practitioner Family; Visit Provider Nurse Practitioner Family
DX: I10 Essential (primary) hypertension (principal); N18.9 Chronic kidney disease, unspecified; J44.9 Chronic obstructive pulmonary disease, unspecified; Z99.81 Dependence on supplemental oxygen; G47.33 Obstructive sleep apnea (adult) (pediatric); E11.9 Type 2 diabetes mellitus without complications
CPT/HCPCS: 80053; 82728; 83036; 83540; 83550; 84443

== ENCOUNTER → 2021-08-12 01:58 | Outpatient (CLI) | payer MEDICARE, SELFPAY ==
--- NOTE | 2021-08-12 | DI.MAMMO_ITS ---
Exam(s) MAMMO SCREENING EXAM: MAMMO SCREENING CLINICAL HISTORY: SCREENING, Z12.31 TECHNIQUE: Mammograms were interpreted according to the usual protocol including computer analysis w Fetch MD CAD system, tomosynthesis and C-view imaging. COMPARISON: 2013 through 2017 FINDINGS: The breasts are composed of mainly fatty density , Breast Density category A. No suspicious masses or suspicious microcalcifications are seen. No skin thickening or abnormal axillary lymph nodes are seen. There has been no significant change from prior exams. IMPRESSION: BI-RADS Category 1, Negative mammogram Yearly screening mammography is recommended. Breast Density - Category A, fatty density. A negative radiographic report should not delay biopsy if a dominant or clinically suspicious mass is present. Up to ten percent of cancers are not identified on mammography. A negative report may reinforce clinical impression. Adenosis and dense breasts may obscure an underlying neoplasm. False positive reports average 6 to 10%. Patient will receive a letter notifying them of these results.
== END ==
PROVIDERS: PCP Nurse Practitioner Family; Visit Provider Nurse Practitioner Family
DX: Z12.31 Encounter for screening mammogram for malignant neoplasm of breast (principal)
CPT/HCPCS: 77063; 77067

== ENCOUNTER 2021-08-26 16:29 | Outpatient (REF) | payer MEDICARE, SELFPAY ==
[2021-08-26 19:14] LABS: Anion Gap 9.5 mmol/L (3-11); BUN 26 mg/dL (7-18); CO2 30.5 mmol/L (21.0-32.0); CREATININE 1.6 mg/dL (0.55-1.02); Calcium 8.4 mg/dL (8.5-10.1); Chloride 98 mmol/L (98-107); Estimated GFR 31.96 (mL/min/1.73m2); Glucose 296 mg/dL (74-106); Magnesium 1.7 mg/dL (1.8-2.4); Potassium 4.5 mmol/L (3.5-5.1); Sodium 138 mmol/L (136-145)
== END 2021-08-26 16:30 | disposition home or self-care (01) ==
LOC: NCHCN 16:29
PROVIDERS: PCP Nurse Practitioner Family; Visit Provider Nurse Practitioner Family
DX: E27.8 Other specified disorders of adrenal gland (principal); N18.9 Chronic kidney disease, unspecified; F32.9 Major depressive disorder, single episode, unspecified; G47.62 Sleep related leg cramps
CPT/HCPCS: 80048; 83735

== ENCOUNTER 2021-10-15 15:15 | Outpatient (REF) | payer MEDICARE, SELFPAY ==
[2021-10-15 16:14] LABS: HCT 39.7 % (36.0-46.0); HGB 13.4 g/dL (11.2-15.7); MCH 32.3 pg (27.0-33.0); MCHC 33.8 % (32.0-36.0); MCV 96 fL (80-95); Platelet Count 300 10^3/uL (130-400); RBC 4.15 10^6/uL (3.93-5.22); RDW-SD 46.3 fL
== END 2021-10-15 15:16 | disposition home or self-care (01) ==
LOC: NCHCN 15:15
PROVIDERS: PCP Nurse Practitioner Family; Visit Provider Nurse Practitioner Family
DX: Z01.818 Encounter for other preprocedural examination (principal)
CPT/HCPCS: 85027

== ENCOUNTER 2021-11-01 08:21 | Day surgery (SDC) | payer MEDICARE, SELFPAY ==
[2021-11-01 08:53] VITALS: BP 150/83; PULSE 86; RESP 20; TEMP 35.9; O2SAT 95
[2021-11-01] MEDS: Tropicam./Phenyleph. (1/2.5%) 5 ML BTL OS ×3 (09:01→09:12)
--- NOTE | 2021-11-01 09:07 | W.ANESPRE ---
General Info Date of Service Date Performed: 11/01/21 Height: 5 ft 4 in Weight: 133.3 kg Body Mass Index (BMI): 50.4 Surgical Procedure: Operation Date: 11/01/21 10:40 Proposed Procedure Side Surgeon p Cataract Extraction with IOL Implant Left Yayo Saeed MD Meds Allergies and Home Medications Allergies Allergy/AdvReac Type Severity Reaction Status Date / Time codeine Allergy Mild Verified 11/01/21 08:46 fluticasone Allergy Mild Verified 11/01/21 08:46 [From Advair Diskus] salmeterol Allergy Mild Verified 11/01/21 08:46 [From Advair Diskus] Sulfa (Sulfonamide Allergy Mild Unknown Verified 11/01/21 08:46 Antibiotics) Home Medication Medication Instructions Recorded albuterol sulfate 90 mcg/actuation 2 puff inhalation Q6H PRN PRN 11/25/17 aerosol inhaler (ProAir HFA) aspirin 81 mg tablet,delayed 81 mg PO DAILY 11/25/17 release (Aspir-) cholecalciferol (vitamin D3) 50 2,000 unit PO DAILY 11/25/17 mcg (2,000 unit) capsule (Vitamin D3) cinnamon bark 500 mg capsule 1,000 mg PO DAILY 11/25/17 (Cinnamon) cyclobenzaprine 10 mg tablet 10 mg PO TID PRN PRN 11/25/17 escitalopram oxalate 20 mg tablet 20 mg PO DAILY 11/25/17 (Lexapro) glipizide 5 mg tablet, extended 5 mg PO BID 11/25/17 release 24 hr (Glucotrol XL) hydrochlorothiazide 50 mg tablet 12.5 mg PO DAILY 11/25/17 lisinopril 10 mg tablet 10 mg PO DAILY 11/25/17 omega-3 fatty acids 1,000 mg 1,000 mg PO DAILY 11/25/17 capsule rosuvastatin 10 mg tablet (Crestor) 10 mg PO DAILY 11/25/17 nebulizers #1 ea 11/30/17 fluticasone fur. 100 mcg-umeclid 1 inh inhalation DAILY 09/30/20 62.5 mcg-vilant 25 mcg inhalat.powder (Trelegy Ellipta) Oxygen #1 ea 10/25/20 gabapentin 100 mg capsule 1 cap PO HS leg cramps 10/29/21 sitagliptin 50 mg tablet (Januvia) 1 tab PO DAILY 10/29/21 amoxicillin 500 mg tablet 1 tab PO BID 10/31/21 Current Visit Medications: Current Medications Generic Name Dose Route Start Last Admin Trade Name Freq PRN Reason Stop Dose Admin Acetaminophen 1,000 mg 11/01/21 06:00 Acetaminophen 500 Mg Tab PO Q4H PRN PRN Miscellaneous Medication 0 ml 11/01/21 06:00 Prednisolone 1%, Moxifloxacin 0.5%, Nepafenac 0.1% 5ml Btl OS DIRECTED ALEJANDRINA Miscellaneous Medication 0 ml 11/01/21 06:00 11/01/21 09:01 Tropicam./Phenyleph. (1/2.5%) 5 Ml Btl OS 1 drp DIRECTED ALEJANDRINA Administration Tetracaine HCl 0 ml 11/01/21 06:00 Tetracaine 0.5% 4 Ml Btl OS DIRECTED ALEJANDRINA PFSH Active Problems Active Problems: Problem Status Onset Code COPD with acute exacerbation J44.1 Tobacco abuse Z72.0 Depression F32.9 Hypertension I10 DVT prophylaxis Dental abscess K04.7 COPD (chronic obstructive pulmonary disease) J44.9 Respiratory failure with hypoxia J96.91 Personal history of nicotine dependence Z87.891 Traumatic injury of left lower extremity S89.92XA Rhabdomyolysis M62.82 Right ankle injury S99.911A Acute kidney injury N17.9 Anemia D64.9 Medical History Medical History CKD (chronic kidney disease) stage 3, GFR 30-59 ml/min Pt. denies Diabetes mellitus Diabetes mellitus 10/21/21 [facility] visit not well controlled, A1C 8.2 Discharge planning issues On supplemental oxygen therapy on O2 of night. Is able to lay flat Surgical History Surgical History (Updated 11/01/21 @ 08:45 by Dominick Zapata) Hx of hernia repair Tobacco Smoking/Tobacco Use Status: Former Tobacco Use Alcohol Alcohol Intake: current Alcohol intake frequency: holidays/special occasions only Substance Use Substance use: Never Substance use type: does not use Vital Signs and Lab Results Vital Signs Most Recent Vital Signs in EMR: Most Recent Vital Signs Temp Pulse Resp BP Pulse Ox 35.9 C L 86 20 150/83 H 95 11/01/21 08:53 11/01/21 08:53 11/01/21 08:53 11/01/21 08:53 11/01/21 08:53 Lab Results Blood Type / Crossmatch: No Data to Display Complete Blood Count: White Blood Count 14.50 10^3/uL (4.4-10.8) H 10/15/21 11:45 Red Blood Count 4.15 10^6/uL (3.93-5.22) 10/15/21 11:45 Hemoglobin 13.4 g/dL (11.2-15.7) 10/15/21 11:45 Hematocrit 39.7 % (36.0-46.0) 10/15/21 11:45 Platelet Count 300 10^3/uL (130-400) 10/15/21 11:45 Complete Metabolic Panel: No Data to Display Liver Function Panel: No Data to Display Coagulation Panel: No Data to Display Cardiac Panel: No Data to Display Arterial Blood Gas: No Data to Display Venous Blood Gas: No Data to Display Pancreas Panel: No Data to Display Thyroid Panel: No Data to Display Infectious Disease: No Data to Display Blood Cultures: No Data to Display Toxicology Panel: No Data to Display Imaging and Studies Imaging and Studies Study information below may be from another EMR and interpreted by another provider. Please see original notes in EMR for more complete details. EKG Summary: Conclusion Sinus rhythm...normal P axis, V-rate 60- 99 Probable left atrial enlargement...P >50mS, <-0.10mV V1 Right bundle branch block...QRSd>120, terminal axis(90,270) I have reviewed and interpreted ECG and agree with software generated interpretation. There are no significant changes compared to prior EKG performed on 11/24/2017 at 18:59. 12/27/20 Stress Test Summary: MPI Conclusion The ejection fraction was 58% with stress. There were no wall motion abnormalities. No evidence of ischemia on the imaging portion of the exam. This represents a normal SPECT stress test. 08/09/20 Echocardiogram Summary: Conclusion Left Ventricle : The left ventricle is normal size. Left ventricular systolic function is borderline.l. Mild concentric left ventricular hypertrophy. There is normal LV segmental wall motion. LVEF is 55%. Right Ventricle : Right ventricle is grossly normal in size. Right ventricular systolic function is grossly normal. Atria : The left atrium size is normal. The right atrium size is normal. Aortic Valve : Aortic valve is calcified. Number of aortic valve leaflets could not be assessed. No aortic regurgitation is present. No hemodynamically significant valvular aortic stenosis though interrogation of valve is in complete due to technical limitations.. Great Vessels : The aortic root is normal in size. The ascending aorta is mildly dilated. Aortic arch is not well visualized. IVC is normal in size and collapses >50% with inspiration. Compared to study from 10/22/2018, there did not appear to be any significant changes. The aortic valve mean gradient was previously measured at 20 mmHg though on today's technically limited study, the highest measured is is 10 mmHg. 07/17/20 Pulmonary Function Summary: INTERPRETATION SPIROMETRY: Spirometry shows severe obstructive airways disease with significant bronchodilator response. LUNG VOLUMES: Lung volumes show no evidence of restriction. DIFFUSION CAPACITY: Moderately reduced. AIRWAY RESISTANCE: Elevated. IMPRESSION: Severe obstructive airways disease with significant bronchodilator response. Clinical correlation recommended. 10/20/13 Anesthesia Assessment and Plan Anesthesia History Personal History: No History of Anesthesia Complications Family History: No Family History of Anesthesia Complications Exercise Tolerance Exercise Tolerance: Metabolic Equivalents<4 Pertinent Negatives Pertinent Negatives: No Major Cardiovascular Symptoms or Complaints Cardiac & Pulmonary Exam Cardiac Exam: Normal S1/S2 Heart Sounds Pulmonary Exam: Clear Bilateral Breath Sounds Implantable Cardiac Device Does patient have a Pacemaker or an ICD?: No Airway Exam Known Difficult Airway: No Mallampati Class: 3 Mouth Opening: Narrow (< 3cm) (Current cheek infection also TMJ, minimal jaw opening) Thyromental Distance: Less than 3 cm Neck Range of Motion: Limited ROM Neck Circumference: Thick Teeth Condition: Generalized Poor Dentition (Broken teeth, none loose per patient) and Removable Dentures/Plates Upper (Upper partial) ASA Classification ASA Score: ASA 3 Emergency Case?: No NPO Status NPO Status: NPO Clears >2 hours, Solids >8 hours Anesthesia Plan Resuscitation Status: Full Code Anesthesia Technique: MAC Anesthesia Airway Planned: Natural Airway Monitors Used: Standard Monitors
[2021-11-01 09:41] VITALS: BMI 50.4
[2021-11-01] MEDS: Tetracaine 0.5% 4 ML BTL OS (09:50)
[2021-11-01] MEDS: Balanced Salt Soln.-PLUS 500 ML BAG (09:51)
[2021-11-01] MEDS: Lidocaine 2% Jelly 6 ML SYR (09:53)
[2021-11-01] MEDS: Povidone-Iodine Ophth 30 ML BTL (09:54)
[2021-11-01 10:10] VITALS: BP 126/74; PULSE 75; RESP 18; TEMP 36.3; O2SAT 98
--- NOTE | 2021-11-01 10:10 | W.PM.DSUDISC ---
Discharge Plan Disposition Patient Disposition: HOME Condition: Good Discharge Details Attending Provider: Yayo Saeed Primary Care Provider: Liliam Noble Home Meds and New Rx's Prescriptions: No Action (DME) Oxygen Tank See Rx Instructions .ROUTE .MEDSUPPLY Qty: 1 Rx Instructions: As directed,2L with physical activity. gabapentin 100 mg capsule 1 cap PO HS Januvia 50 mg tablet 1 tab PO DAILY amoxicillin 500 mg tablet 1 tab PO BID Label Comments: TAKE ONE TABLET BY MOUTH THREE TIMES A DAY FOR 5 DAYS omega-3 fatty acids 1,000 mg Capsule 1,000 mg PO DAILY hydrochlorothiazide 50 mg Tablet 12.5 mg PO DAILY escitalopram oxalate [Lexapro] 20 mg Tablet 20 mg PO DAILY cholecalciferol (vitamin D3) [Vitamin D3] 2,000 unit Capsule 2,000 unit PO DAILY lisinopril 10 mg Tablet 10 mg PO DAILY rosuvastatin [Crestor] 10 mg Tablet 10 mg PO DAILY cinnamon bark [Cinnamon] 500 mg Capsule 1,000 mg PO DAILY Rx Instructions: No dose given. albuterol sulfate [ProAir HFA] 90 mcg/actuation Hfa Aerosol Inhaler 2 puff Inhalation Q6H PRN PRN glipizide [Glucotrol XL] 5 mg Tablet Extended Release 24hr 5 mg PO BID cyclobenzaprine 10 mg Tablet 10 mg PO TID PRN PRN aspirin [Aspir-81] 81 mg Tablet,Delayed Release (Dr/Ec) 81 mg PO DAILY (DME) nebulizers misc See Dose Instructions .ROUTE .MEDSUPPLY Qty: 1 0RF Dose Instruction: As directed Rx Instructions: As directed Trelegy Ellipta 100-62.5-25 mcg blister with device 1 inh INHALATION DAILY Discharge Instructions Stand Alone Forms: Post-op Topical Cataract, Press Ganey (DSU) Discharge Orders Discharge Orders: Discharge Order (Routine); Ordered 11/01/21 Ordered By: Yayo Saeed DS: Diagnosis Discharge Diagnosis (1) Posterior subcapsular age-related cataract of left eye: Status: Resolved (2) Nuclear sclerotic cataract of left eye: Status: Resolved
--- NOTE | 2021-11-01 10:14 | W.PM.OP ---
Date of service: 11/01/21 Time of Service: 10:14 Operative Note Operative Note DATE OF PROCEDURE: 11/01/21 PRE-OP DIAGNOSIS: Nuclear/posterior subcapsular cataract, left eye POST-OP DIAGNOSIS: same PROCEDURE: Cataract extraction using phacoemulsification with intraocular lens implant, left eye SURGEON: Yayo Saeed ANESTHESIA TYPE: Local By Surgeon and MAC Refer to Anesthesia Record PATHOLOGY: none sent COMPLICATIONS: None Patient was transported to: same day Patient's condition: stable Implants: Niels [employer]iels / [employer] Tecnis [id number] Indications: Progressive decreased vision due to cataract, left eye Procedure Description: CATARACT SURGERY OPERATIVE REPORT PREOPERATIVE DIAGNOSIS: 1. Nuclear/posterior subcapsular cataract, left eye POSTOPERATIVE DIAGNOSIS: Same OPERATION: 1. Cataract extraction using phacoemulsification with posterior chamber intraocular lens implant, left eye. IOL: IOL Banner Painter/Model: Niels [employer] Niels / AKASH Tecnis [id number] IOL Power: + 22.5 diopters IOL Serial Number: [id number] Optic Diameter: 6.0 mm Haptic/Overall Diameter: 13.0 mm PHACO INFO: Will Im[employer]urion Vision System with OZil and Active Fluidics Cumulative Dispersed Energy (CDE): 8.70 seconds SURGEON: Yayo Saeed MD, NNEKA ANESTHESIA: Monitored A [facility] (MAC), with local sub-tenon's anesthetic infiltration COMPLICATIONS: None SPECIMENS: None INDICATIONS FOR PROCEDURE: The patient is a 71-year-old lady with history of diminished visual acuity in her left eye secondary to the development of nuclear and posterior capsular cataract. The option of cataract surgery was offered to the patient and she felt she was symptomatic enough that she wished to proceed. She has a history of myopia and reads without glasses. She desires to remain myopic postoperatively. Postoperative refractive target is set for -2.50 diopters PROCEDURE: The correct surgical eye was identified and marked as the left eye and the pupil was dilated in the preoperative area using mydriatics and cycloplegics. The dilated pupil size was 7.0 mm. . The patient elected to proceed without oral sedation. The patient was brought to the operating room where cardiopulmonary monitoring was instituted and surgical time-out was performed, confirming the correct operative eye and IOL power. Topical anesthesia was administered and ophthalmic povidone-iodine 5% was instilled into the conjunctival fornices. Lidocaine gel was applied to the cornea and the david-ocular area was prepped with Betadine 10% solution and draped in the usual sterile fashion for intraocular surgery, including an aperture drape. A Tegaderm transparent film dressing was cut in half and used to cover the lashes and lid margins. Care was taken to sequester the lashes and lid margins under the Tegaderm dressing. A lid speculum was placed between the lids of the operative eye and the Will LuxOR Revalia operating microscope was maneuvered into position. Siva scissors were then used to make a conjunctival buttonhole approximately 6mm posterior to the limbus in the inferonasal quadrant. Blunt dissection was carried out to expose bare sclera, and a blunt-tipped sub-tenon?s anesthesia cannula was introduced and passed posteriorly along the globe where non-preserved plain lidocaine was injected into posterior sub-Tenon?s space. A sideport knife was used to make a paracentesis port superiorly/superiortemporally. Intraocular phenylephrine/lidocaine was injected int the anterior chamber.. The anterior chamber was filled with viscoelastic. A keratome knife was used to construct a 2-plane near-clear corneal tunnel extending 2.0mm into clear cornea temporally. A flap was raised on the anterior capsule and capsulorhexis forceps were used to complete a continuous curvilinear capsulorhexis of 5.0 mm. Capsulorhexis was challenging due to constant eye movement. The eye had to be fixated with a second instrument to perform the rhexis. Balanced salt solution was then used to perform cortical cleaving hydrodissection and nuclear hydrodelineation until the lens could be freely rotated within the capsular bag. The lens nucleus was then disassembled and removed within the capsular bag and iris plane using phacoemulsification. Residual cortical material was removed using the 45-degree angled silicone I/A tip with 0.3mm port. The posterior capsule was carefully polished to remove as much residual lens epithelial cells as safely possible. The capsular bag was then inflated and the anterior chamber deepened with viscoelastic. The lens implant described above was inserted into the capsular bag using the AKASH Birchleaf Injector. A Kuglen hook was used to dial the IOL into position. Residual viscoelastic was then removed first from posterior to the IOL, then from the anterior chamber using the I/A handpiece. The lens implant was noted to center nicely within the capsular bag. The incisions were stromally hydrated, and the anterior chamber was reformed using BSS. Then 0.5cc of moxifloxacin 1.0mg/ml were injected into the capsular bag and anterior chamber. The incisions were checked with a Weck spear and found to be secure. Several drops of ophthalmic povidone-iodine 5% were then applied to the eye followed by two drops of Imprimis combination prednisolone/moxifloxacin/nepafenac solution. The drapes were removed and a clear plastic protective eye shield was placed over the eye. The patient was then returned to Same Day Surgery in stable condition.
--- NOTE | 2021-11-01 10:36 | W.ANESPOSTOP ---
Postoperative Evaluation Date, Time and Location Date Performed: 11/01/21 Time Performed: 10:12 Patient Location: Day Surgery Unit Vital Signs Most Recent Imported Vital Signs: Most Recent Vital Signs Temp Pulse Resp BP Pulse Ox 36.3 C L 75 18 126/74 98 11/01/21 10:10 11/01/21 10:10 11/01/21 10:10 11/01/21 10:10 11/01/21 10:10 Pain Score Most Recent Pain Score: Most Recent Pain Score Pain Level 0 11/01/21 10:10 Assessment Mental Status: Awake (Alert & Oriented to Patient Baseline) Airway and Respiratory Function: Patent airway with normal (patient baseline) respiratory exam Cardiovascular Function: Hemodynamically Stable Hydration Status: Adequately Hydrated Nausea & Vomiting: No Nausea or Vomiting Pain: Pt. Denies Any Pain Peripheral Nerve Block: Patient did not receive a nerve block
== END 2021-11-01 10:38 | disposition home or self-care (01) ==
LOC: SUR 08:24
PROVIDERS: PCP Nurse Practitioner Family; Visit Provider Ophthalmology
PROC: (CPT 66984; principal; 2021-11-01 10:30)
DX: H25.042 Posterior subcapsular polar age-related cataract, left eye (principal); N18.30 Chronic kidney disease, stage 3 unspecified; J44.9 Chronic obstructive pulmonary disease, unspecified; E11.22 Type 2 diabetes mellitus with diabetic chronic kidney disease
CPT/HCPCS: 66984; V2632

== ENCOUNTER 2021-12-16 14:01 | Inpatient (IN) | payer MEDICARE, SELFPAY ==
[2021-12-16] VITALS (24 sets, daily range): BP systolic 97–138; BP diastolic 61–89; PULSE 80–105; RESP 17–33; TEMP 36.1–36.5; O2SAT 90–99
--- NOTE | 2021-12-16 15:15 | DI.RAD_ITS ---
Exam(s) XR PORTABLE CHEST AP EXAM: XR PORTABLE CHEST AP CLINICAL HISTORY: cough, crackles in bases TECHNIQUE: 2D digital imaging was performed of the chest. One image was obtained. An AP view was ob tained. COMPARISON: CR XR CHEST 2V PA LATERAL from 11/24/2017 FINDINGS: MEDIASTINUM: Normal. HEART: The heart appears to be enlarged which may be due to the AP technique. PULMONARY VASCULATURE: Normal. LUNGS: Atelectasis or scarring is seen in the left lung base. No focal consolidating infiltrates are seen. PLEURAL SPACE: No gross effusions are seen. No pneumothorax is identified. BONE:Within normal limits for the patient's age. OTHER FINDINGS:Normal. IMPRESSION: No acute pulmonary process. DATA REPOSITORY: RADIATION DOSE DELIVERED:
--- NOTE | 2021-12-16 15:15 | RT.EKG_ITS ---
APPROVED REPORT Exam: Resting ECG Reason for Exam: cough, sob Patient Location: E HR:97 bpm ECG Measurements Heart Rate 97 AXIS SC 105 P 97 QRSd 178 QRS 78 QT 413 T 13 QTc 523 Conclusion Sinus rhythm...normal P axis, V-rate 60- 99 Atrial premature complexes...SV complexes w/ short R-R intvls Right bundle branch block...QRSd>120, terminal axis(90,270) Physician: no stemi, unchanged, rbbb
--- NOTE | 2021-12-16 15:34 | ED.GENADUL_ITS ---
Discharge Plan Disposition Patient Disposition: [facility] INPATIENT Condition: Stable Discharge Details Chief Complaint: GenMedical Clinical Impression: Pneumonia, COVID-19, Acute respiratory distress Primary Care Provider: Liliam Noble ED Provider: Mazin Wagner Home Meds and New Rx's Prescriptions: No Action Nicotrol 10 mg cartridge 1 inh inhalation 4-6XD PRN (DME) Oxygen Tank See Rx Instructions .ROUTE .MEDSUPPLY Qty: 1 Rx Instructions: As directed,2L with physical activity. gabapentin 100 mg capsule 1 cap PO HS omega-3 fatty acids 1,000 mg Capsule 1,000 mg PO DAILY hydrochlorothiazide 50 mg Tablet 12.5 mg PO DAILY Rx Instructions: Pt takes half of a 25 mg tab daily. escitalopram oxalate [Lexapro] 20 mg Tablet 20 mg PO DAILY cholecalciferol (vitamin D3) [Vitamin D3] 2,000 unit Capsule 2,000 unit PO DAILY lisinopril 10 mg Tablet 10 mg PO DAILY rosuvastatin [Crestor] 10 mg Tablet 10 mg PO DAILY cinnamon bark [Cinnamon] 500 mg Capsule 1,000 mg PO DAILY Rx Instructions: No dose given. albuterol sulfate [ProAir HFA] 90 mcg/actuation Hfa Aerosol Inhaler 2 puff Inhalation Q6H PRN PRN glipizide [Glucotrol XL] 5 mg Tablet Extended Release 24hr 5 mg PO BID cyclobenzaprine 10 mg Tablet 10 mg PO TID PRN PRN aspirin [Aspir-81] 81 mg Tablet,Delayed Release (Dr/Ec) 81 mg PO DAILY (DME) nebulizers misc See Dose Instructions .ROUTE .MEDSUPPLY Qty: 1 0RF Dose Instruction: As directed Rx Instructions: As directed Trelegy Ellipta 100-62.5-25 mcg blister with device 1 inh INHALATION DAILY Medical Decision Making This is a 71-year-old female with a past medical history of COPD, previous tobacco abuse, hypertension, high cholesterol, diabetes, chronic kidney disease, and a stable echo with an EF of 55% performed in June 2020, presents today for evaluation of cough, weakness. Patient states that 2 weeks ago she developed a mild head cold with runny nose and congestion, gradually over the week it transitioned to a cough and lower respiratory illness. The past week she has had persisting cough, she denies any chest pain though. She does feel short of breath. She is on a baseline of 2 L of oxygen at all times at home. She states that over the last week she has continued to feel notably weak. Additionally she saw her primary care provider was started on a new diabetes medication, and subsequently developed diarrhea with this. Is also cause some mild stomach upset. She denies being on any recent antibiotics. She denies any foreign travel. She denies any blood in her stool. No other complaints at this time. She denies any abdominal pain. She denies any chest pain. She denies any chest tightness, long trips, previous blood clots or pulmonary embolisms. Exam demonstrates a slightly hypoxic female in the high 80s to low 90s. She has crackles in the bases of her lungs bilaterally. No pitting edema though. Dry mucous membranes. No abdominal tenderness whatsoever. Diarrhea may have caused some mild dehydration. I am concerned for potential pneumonia. No wheezes at this time, but her reactive airway disease/lung disease could be a additional component. We will evaluate for cardiac etiology although this is less likely. We will give a breathing treatment, monitor closely and reassess. Symptoms seem inconsistent at this time clinically with pulmonary embolism or dissection. C. difficile is also less likely would no recent antibiotics or other risk factors. 6:44 PM Laboratory work-up is returned, there is no white count or bandemia, she does have some lymphopenia. COVID test is returned positive. VBG stable. Electrolytes demonstrate slightly low sodium at 130, creatinine is slightly higher than normal at 1.9 with a GFR of 28, proBNP is much higher than normal at 1200, troponin normal, EKG stable. Flu is negative. Chest x-ray is read is unchanged, however I feel that there is still evidence of potential infiltrate as well as some blunted costophrenic angles. Bedside echo shows an ejection fraction around 40%. Fat pad versus mild pericardial effusion. Patient's oxygen seems to be stable now after breathing treatments. With 2 to 3 L she is at around 97 to 98%. However she still has a moderate work of breathing, mild tachypnea, and does not look to me to be a prime candidate for discharge home. I do feel that she is suffering from bacterial pneumonia as well with her productive yellow sputum which came on later. 10 of dexamethasone was given, we will also give 2 g of ceftriaxone and 100 mg of doxycycline. Patient is now stating that her symptoms may have actually begun only 7 to 8 days ago. Even with this being said she is still out of the window for monoclonal antibodies or Paxlovid. With the patient's multiple comorbidities, symptoms and clinical picture I do feel admission is indicated at this time.I discussed the case with hospitalist Dr. Hensley, he agrees with the assessment and plan. I have extensively reviewed the treatment plan with the patient. I have addressed all patient concerns at this time. I have also discussed the plan with the admitting physician and they agree with the current assessment and plan and have agreed to assume responsibility for the patient. All parties demonstrate verbal understanding and agreement with our assessment and plan at this time. The documentation in this chart was dictated using [employer] dictation software. Please excuse any dictation errors. FINDINGS: Lungs: Unremarkable. No consolidation. Pleural spaces: Opacification of the left costophrenic angle is unchanged, most likely secondary to prominent epicardial fat pad. Heart/Mediastinum: Cardiomediastinal swelling is mildly prominent likely secondary to technique. Bones/joints: Unremarkable. IMPRESSION: No evidence of acute cardiopulmonary process. Thank you for allowing us to participate in the care of your patient. Dictated and Authenticated by: Saw Vargas MD 12/16/2021 5:34 PM Eastern Time ([place] & [place]) HPI General Date/Time Provider Initiated Documentation: 12/16/21 14:13 . HPI Narrative: This is a 71-year-old female with a past medical history of COPD, previous tobacco abuse, hypertension, high cholesterol, diabetes, chronic kidney disease, and a stable echo with an EF of 55% performed in June 2020, presents today for evaluation of cough, weakness. Patient states that 2 weeks ago she developed a mild head cold with runny nose and congestion, gradually over the week it transitioned to a cough and lower respiratory illness. The past week she has had persisting cough, she denies any chest pain though. She does feel short of breath. She is on a baseline of 2 L of oxygen at all times at home. She states that over the last week she has continued to feel notably weak. Additionally she saw her primary care provider was started on a new diabetes medication, and subsequently developed diarrhea with this. Is also cause some mild stomach upset. She denies being on any recent antibiotics. She denies any foreign travel. She denies any blood in her stool. No other complaints at this time. She denies any abdominal pain. She denies any chest pain. She denies any chest tightness, long trips, previous blood clots or pulmonary embolisms. Related Data Home Medications Medication Instructions Recorded Confirmed albuterol sulfate 90 mcg/actuation 2 puff inhalation Q6H PRN PRN 11/25/17 12/16/21 aerosol inhaler (ProAir HFA) aspirin 81 mg tablet,delayed 81 mg PO DAILY 11/25/17 12/16/21 release (Aspir-) cholecalciferol (vitamin D3) 50 2,000 unit PO DAILY 11/25/17 12/16/21 mcg (2,000 unit) capsule (Vitamin D3) cinnamon bark 500 mg capsule 1,000 mg PO DAILY 11/25/17 12/16/21 (Cinnamon) cyclobenzaprine 10 mg tablet 10 mg PO TID PRN PRN 11/25/17 12/16/21 escitalopram oxalate 20 mg tablet 20 mg PO DAILY 11/25/17 12/16/21 (Lexapro) glipizide 5 mg tablet, extended 5 mg PO BID 11/25/17 12/16/21 release 24 hr (Glucotrol XL) hydrochlorothiazide 50 mg tablet 12.5 mg PO DAILY 11/25/17 12/16/21 lisinopril 10 mg tablet 10 mg PO DAILY 11/25/17 12/16/21 omega-3 fatty acids 1,000 mg 1,000 mg PO DAILY 11/25/17 12/16/21 capsule rosuvastatin 10 mg tablet (Crestor) 10 mg PO DAILY 11/25/17 12/16/21 nebulizers #1 ea 11/30/17 11/11/21 fluticasone fur. 100 mcg-umeclid 1 inh inhalation DAILY 09/30/20 12/16/21 62.5 mcg-vilant 25 mcg inhalat.powder (Trelegy Ellipta) Oxygen #1 ea 10/25/20 11/11/21 gabapentin 100 mg capsule 1 cap PO HS leg cramps 10/29/21 12/16/21 nicotine 10 mg inhalation 1 inh inhalation 4-6XD PRN 11/11/21 12/16/21 cartridge (Nicotrol) Previous Rx's Medication Instructions Recorded nebulizers #1 ea 11/30/17 Allergies Allergy/AdvReac Type Severity Reaction Status Date / Time codeine Allergy Mild Verified 11/11/21 13:39 fluticasone Allergy Mild Verified 11/11/21 13:39 [From Advair Diskus] salmeterol Allergy Mild Verified 11/11/21 13:39 [From Advair Diskus] Sulfa (Sulfonamide Allergy Mild Unknown Verified 11/11/21 13:39 Antibiotics) General Stated Complaint: GenMedical VIRY: 3 Review of Systems All systems reviewed & are unremarkable except as noted in HPI and below PFSH All Active Problems (Updated 12/16/21 @ 18:48 by Mazin Wagner DO) Pneumonia (Acute) COVID-19 (Acute) Acute respiratory distress (Acute) COPD with acute exacerbation (Acute) Tobacco abuse (Chronic) Depression (Chronic) Hypertension (Chronic) DVT prophylaxis (Acute) Dental abscess (Acute) COPD (chronic obstructive pulmonary disease) (Chronic) Respiratory failure with hypoxia (Acute) Personal history of nicotine dependence (Acute) Traumatic injury of left lower extremity (Acute) Rhabdomyolysis (Acute) Right ankle injury (Acute) Anemia (Chronic) Medical History CKD (chronic kidney disease) stage 3, GFR 30-59 ml/min Pt. denies Diabetes mellitus Diabetes mellitus 10/21/21 [facility] visit not well controlled, A1C 8.2 Discharge planning issues On supplemental oxygen therapy on O2 of night. Is able to lay flat Surgical History Hx of hernia repair Social History Smoking/Tobacco Use Status: Former Tobacco Use Quit Date: 03/23/18 Smoking risk assessment performed?: Yes Alcohol Intake: current Alcohol Intake frequency: holidays/special occasions only Drug use: Never Substance use type: does not use Do you feel safe at home: Yes Do you feel safe in your relationship?: Yes Exam Narrative Exam Narrative: 1.Const: Well-nourished, Well-developed, appearing stated age 2.Eyes: PERRL, no conjunctival injection, and symmetrical lids. 3.ENT: Atraumatic external nose and ears. Dry MM. Neck: Symmetric, trachea midline, No thyromegaly. 4.CVS: +S1/S2, No murmurs or gallops. Peripheral pulses 2+ and equal in all extremities. Brisk capillary refill in all extremities. 5.RESP: Unlabored respiratory effort. Crackles in the bases bilaterally. 6.GI: Soft, Nontender/Nondistended, No hepatosplenomegaly. No guarding or rebound. 7.MSK: Normocephalic/Atraumatic, Extremities w/o deformity or ttp No cyanosis or clubbing, Normal movement of all extremities, no pitting edema. 8.Skin: Warm, Dry. No rashes or lesions. 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 Sensation grossly intact, no focal neurologic deficits. 10.Psych: (AAO) x3. Appropriate mood and affect Course Vital Signs Vital signs: Vital Signs Temperature 36.5 C 12/16/21 14:06 Pulse 92 H 12/16/21 14:06 Respiratory Rate 20 12/16/21 14:06 Blood Pressure 138/88 12/16/21 14:06 Pulse Oximetry 90 L 12/16/21 14:06 Temperature 36.5 C 12/16/21 14:06 Temperature Source Tympanic 12/16/21 14:06 Pulse 92 H 12/16/21 14:06 Respiratory Rate 20 12/16/21 14:06 Respiratory Effort Short of Breath 12/16/21 14:10 Blood Pressure 138/88 12/16/21 14:06 Blood Pressure Position Supine 12/16/21 14:06 Pulse Oximetry 90 L 12/16/21 14:06 Oxygen Delivery Method Room Air 12/16/21 14:06 Oxygen Flow Rate 0 12/16/21 14:06 Pain Level 0 12/16/21 14:06 POCUS Exam (ED) Limited Cardiac Exam DATE OF EXAM: 12/16/21 TIME OF EXAM: 16:32 PROVIDER THAT PERFORMED THE STUDY: Mazin Wagner IS THIS A REPEAT EXAM DURING THIS ENCOUNTER: no REASON FOR EXAM: Hypoxia VISUALIZED STRUCTURES: Left atrium, Left ventricle and Right ventricle VIEW OBTAINED: Parasternal long-axis PERTINENT FINDINGS/IMPRESSION: Pericardial effusion (Not trace pericardial effusion, no evidence of tamponade) INCIDENTAL FINDINGS: Trace pericardial effusion, no evidence of tamponade. Ejection fraction around 45% Exam complete PAWSS Have you Been Recently Intoxicated or Drunk Within the Last 30 days?: No Have you Ever Experienced Previous Episodes of Alcohol Withdrawal?: No Have you ever Experienced Withdrawal Seizures?: No Have you ever Experienced Delirium Tremens(DT)s?: No Have you ever undergone Alcohol Rehabilitation Treatment (i.e, inpt ot outpatient treatment programs)?: No Have you ever Experienced Blackouts?: No Have you ever Combined Alcohol with other Downers within the last 90 days?: No Have you ever Combined Alcohol with any other Substance of Abuse during the last 90 days?: No Positive Blood Alcohol level on Presentation? [PCS.BAL]: No Evidence of Increased Autonomic Activity (i.e. HR>120, tremor, sweating, agitation, nausea)?: No Result: 0
[2021-12-16] MEDS: Albuterol/Ipratropium 3 ML UPD VIAL UPD ×2 (15:57→22:33)
[2021-12-16 16:02] LABS: Abs Immature Grans 0.04 10^3/uL (0.0-0.06); Absolute Basophil Count 0.01 10^3/uL (0.0-0.2); Absolute Eosinophil Count 0.01 10^3/uL (0.0-0.7); Absolute Lymphocyte Count 0.44 10^3/uL (1.2-3.4); Absolute Monocyte Count 0.66 10^3/uL (0.1-0.8); Absolute Neutrophil Count 4.54 10^3/uL (1.2-6.7); BE (Venous) 5 mmol/L (-2-3); Basophils % 0.2; Eosinophils % 0.2; HCO3 (Venous) 30 mmol/L (23-28); HCT 36.6 % (36.0-46.0); HGB 12.2 g/dL (11.2-15.7); Immature Grans % 0.7; Lymphocytes % 7.7; MCH 31.1 pg (27.0-33.0); MCHC 33.3 % (32.0-36.0); MCV 93 fL (80-95); MPV 8.6 fL (8.0-11.0); Monocytes % 11.6; Neutrophils % 79.6; O2 Sat (Venous) 70 %; Platelet Count 193 10^3/uL (130-400); RBC 3.92 10^6/uL (3.93-5.22); RDW 13.5 % (11.7-14.6); RDW-SD 46.2 fL; TCO2 (Venous) 27 mmol/L (24-29); pCO2 (Venous) 50 mmHg (41-51); pH (Venous) 7.39 (7.31-7.41); pO2 (Venous) 37 mmHg
[2021-12-16 16:17] LABS: ALT 30 U/L (14-59); AST 42 U/L (15-37); Albumin 2.7 g/dL (3.4-5.0); Alkaline Phosphatase 82 U/L (46-116); Anion Gap 6.9 mmol/L (3-11); BUN 33 mg/dL (7-18); Bilirubin, Total 0.5 mg/dL (0.2-1.0); CO2 29.1 mmol/L (21.0-32.0); CREATININE 1.9 mg/dL (0.55-1.02); Chloride 94 mmol/L (98-107); Estimated GFR 28.23 (mL/min/1.73m2); Glucose 324 mg/dL (74-106); Potassium 4.7 mmol/L (3.5-5.1); Sodium 130 mmol/L (136-145); Total Protein 7.6 g/dL (6.4-8.2)
[2021-12-16 16:27] LABS: NT-proBNP 1245 pg/mL (<300); Troponin I < 50 ng/L (<or=60)
[2021-12-16 16:44] LABS: Influenza A PCR Negative (Negative); Influenza B PCR Negative (Negative); RSV PCR Negative (Negative)
[2021-12-16 16:50] LABS: Source Nasopharynx
[2021-12-16 16:51] LABS: COVID-19 PCR Positive (Negative)
--- NOTE | 2021-12-16 17:35 | DI.VRAD_ITS ---
PROCEDURE INFORMATION: Exam: XR Chest Exam date and time: 12/16/2021 4:57 PM Age: 71 years old Clinical indication: Patient HX: Cough, crackles in base; Covid TECHNIQUE: Imaging protocol: Radiologic exam of the chest. Views: 1 view. COMPARISON: CT CHEST LUNG CANCER SCREEN 05/27/2021 1:12 PM FINDINGS: Lungs: Unremarkable. No consolidation. Pleural spaces: Opacification of the left costophrenic angle is unchanged, most likely secondary to prominent epicardial fat pad. Heart/Mediastinum: Cardiomediastinal swelling is mildly prominent likely secondary to technique. Bones/joints: Unremarkable. IMPRESSION: No evidence of acute cardiopulmonary process. Dictated and Authenticated by: Saw Vargas MD. Ordering:RICH Retana MD
[2021-12-16 18:47] LABS: Bilirubin Small (Negative); Blood Moderate (Negative); Clarity Clear (Clear); Glucose 500 mg/dL (Negative); Ketones 15 mg/dL (Negative); Leukocyte Esterase Negative (Negative); Nitrite Negative (Negative); Specific Gravity >= 1.030 (1.005-1.025); Urobilinogen 0.2 EU/dL (Up TO 0.2)
[2021-12-16 18:53] LABS: Bacteria Moderate HPF (Negative); Crystals Moderate Amorphous HPF (Negative); Epithelial Cells Few HPF (Negative); Mucus Negative (Negative); Other Cells Negative (Negative)
[2021-12-16 18:54] LABS: C & S Indicated? Yes
--- NOTE | 2021-12-16 18:55 | HPE_ITS ---
Date of service: 12/16/21 Time of Service: 18:55 Assessment and Plan Assessment and plan (1) Pneumonia: Start date: 12/16/21 Status: Acute Assessment and plan: Patient does have clinical evidence of pneumonia or least exacerbation of bronchitis and will be treated as a community-acquired pneumonia with Rocephin and doxycycline. She also will be treated aggressively for COVID-19 infection being within the 7-day window as best can be ascertained by history. She is a vague historian. COPD exacerbation increased oxygen needs will also be addressed. Patient is a full code. (2) COVID-19: Start date: 12/16/21 Status: Acute Assessment and plan: Acute viral infection with COVID-19 and patient will be started on dexamethasone along with remdesivir. O2 sat mentation titrate as needed. Isolation. (3) COPD with acute exacerbation: Start date: 12/16/21 Status: Acute Assessment and plan: Aggressive nebulizer treatments along with dexamethasone and O2 supplementation adjustment as needed. Weight loss long-term would be helpful for her respiratory status. (4) Respiratory failure with hypoxia: Status: Acute Assessment and plan: O2 supplementation and adjusting to patient's chronic home use which is around 2 L/min per nasal cannula. She is obese and probably has obstructive sleep apnea issues. Long-term weight loss would be helpful. Qualifiers: Chronicity: chronic Qualified Code(s): J96.11 - Chronic respiratory failure with hypoxia (5) Diabetes mellitus: Assessment and plan: Patient will have glucometers AC at bedtime with short acting insulin coverage while hospitalized. This may be exacerbated by the dexamethasone treating COVID-19 infection. Qualifiers: Diabetes mellitus type: type 2 Diabetes mellitus technician terminal and repeater insulin use: without technician terminal and repeater use Diabetes mellitus complication status: without complication Qualified Code(s): E11.9 - Type 2 diabetes mellitus without complications (6) Hypertension: Status: Chronic Assessment and plan: Blood pressure is not elevated and patient will have decreased dose of lisinopril and hold hydrochlorothiazide with gentle rehydration while hospitalized. Qualifiers: Hypertension type: unspecified Qualified Code(s): I10 - Essential (primary) hypertension History of Present Illness History of Present Illness Chief Complaint: Dyspnea with cough and increaased oxygen needs Narrative: This is a 71-year-old female patient who has a history of COPD and oxygen dependence with a 4 to 5-day history of increasing cough and cold symptoms with sputum production without change in volume or color. She had no fever and no chest pain or palpitations with this upper respiratory infection. She had had diarrhea for the week prior. This had resolved. She does have a history of CKD and diabetes along with hyperlipidemia and is stable echocardiogram evaluation with left ventricular ex fraction 55% in June 2020. The patient's operatory symptoms began to have more lower respiratory symptoms over the last several days prior to presentation. She did test positive for COVID-19 in the ED and is within the window for treatment. She was admitted for more aggressive treatment of COVID-19 as well as treatment for possible pneumonia and also COPD exacerbation with increasing oxygen needs at home. She was comfortable at the time I examined her and was responding to therapy. Evaluation in the ED did rule out acute pulmonary embolus. Once patient got to [facility] she did have a tachycardic rhythm which appeared to be irregular and possible atrial fibrillation. This did respond to beta-bernardo. Patient is a full code. Review of Systems Narrative: 13 point review of systems otherwise unrevealing or stable. Patient denies any blood in her stool when she had diarrhea. She denies any bloating or abdominal discomfort with pain. She also as stated denies any fever. She does not know of exposure to COVID-19. [facility] All Active Problems (Updated 12/17/21 @ 13:37 by Guy Hensley) Pneumonia (Acute) COVID-19 (Acute) Acute respiratory distress (Acute) COPD with acute exacerbation (Acute) Tobacco abuse (Chronic) Depression (Chronic) Hypertension (Chronic) DVT prophylaxis (Acute) Dental abscess (Acute) COPD (chronic obstructive pulmonary disease) (Chronic) Respiratory failure with hypoxia (Acute) Personal history of nicotine dependence (Acute) Traumatic injury of left lower extremity (Acute) Rhabdomyolysis (Acute) Right ankle injury (Acute) Anemia (Chronic) Medical History CKD (chronic kidney disease) stage 3, GFR 30-59 ml/min Pt. denies Diabetes mellitus Diabetes mellitus 10/21/21 [facility] visit not well controlled, A1C 8.2 Discharge planning issues On supplemental oxygen therapy on O2 of night. Is able to lay flat Surgical History Hx of hernia repair Social History Smoking/Tobacco Use Status: Former Tobacco Use Quit Date: 03/23/18 Smoking risk assessment performed?: Yes Alcohol Intake: current Alcohol Intake frequency: holidays/special occasions only Drug use: Never Substance use type: does not use Do you feel safe at home: Yes Do you feel safe in your relationship?: Yes Meds Allergies and Home Medications Allergies Allergy/AdvReac Type Severity Reaction Status Date / Time codeine Allergy Mild Verified 12/16/21 20:08 fluticasone Allergy Mild Verified 11/11/21 13:39 [From Advair Diskus] salmeterol Allergy Mild Verified 11/11/21 13:39 [From Advair Diskus] Sulfa (Sulfonamide Allergy Mild Unknown Verified 12/16/21 20:08 Antibiotics) Home Medications Medication Instructions Recorded Confirmed Type albuterol sulfate 90 mcg/actuation 2 puff inhalation Q6H PRN PRN 11/25/17 12/16/21 History aerosol inhaler (ProAir HFA) aspirin 81 mg tablet,delayed 81 mg PO DAILY 11/25/17 12/16/21 History release (Aspir-) cholecalciferol (vitamin D3) 50 2,000 unit PO DAILY 11/25/17 12/16/21 History mcg (2,000 unit) capsule (Vitamin D3) cinnamon bark 500 mg capsule 1,000 mg PO DAILY 11/25/17 12/16/21 History (Cinnamon) cyclobenzaprine 10 mg tablet 10 mg PO TID PRN PRN 11/25/17 12/16/21 History escitalopram oxalate 20 mg tablet 20 mg PO DAILY 11/25/17 12/16/21 History (Lexapro) glipizide 5 mg tablet, extended 5 mg PO BID 11/25/17 12/16/21 History release 24 hr (Glucotrol XL) hydrochlorothiazide 50 mg tablet 12.5 mg PO DAILY 11/25/17 12/16/21 History lisinopril 10 mg tablet 10 mg PO DAILY 11/25/17 12/16/21 History omega-3 fatty acids 1,000 mg 1,000 mg PO DAILY 11/25/17 12/16/21 History capsule rosuvastatin 10 mg tablet (Crestor) 10 mg PO DAILY 11/25/17 12/16/21 History nebulizers #1 ea 11/30/17 11/11/21 Rx fluticasone fur. 100 mcg-umeclid 1 inh inhalation DAILY 09/30/20 12/16/21 History 62.5 mcg-vilant 25 mcg inhalat.powder (Trelegy Ellipta) Oxygen #1 ea 10/25/20 11/11/21 History gabapentin 100 mg capsule 1 cap PO HS leg cramps 10/29/21 12/16/21 History nicotine 10 mg inhalation 1 inh inhalation 4-6XD PRN 11/11/21 12/16/21 History cartridge (Nicotrol) Exam Narrative Exam Narrative: General: Patient appears older than stated age, alert and oriented x3 and m orbidly obese. She appears to be laying comfortably in bed with a head at a 45 degree angle. HEENT: Normocephalic, coarsened facial features, oropharynx with poor dentition and dry mucosa. Eyes with pupils equal and reactive light symmetric, extraocular intact and sclera anicteric. Neck: Supple without JVD. Back: Kyphotic with no CVA tenderness. Lungs: Bronchovesicular breath sounds diffusely with sparse crackles but no focalizing. No expiratory wheeze. Occasional rhonchi. Fair aeration overall. Heart: Regular rate and rhythm with occasional extrasystole. Patient early had tachycardic rhythm which was irregular. Holosystolic murmur which is 3/6 and auscultated over apex and left lower sternal border. Breast: Exam deferred. Abdomen: Obese contour, soft and nontender to palpation with no palpable hepatosplenomegaly. Genitalia/rectal: Exam deferred. Extremities: Without clubbing, cyanosis or pitting edema with gross nonpitting edema and skin changes over his legs and feet. Skin: Normal color, rough texture, warm and dry. Neuro: Cranial nerves II through XII gross intact, no focalizing motor deficits. No tremor. Psych: Flattened affect with depressed mood. No normal thought processes. Remote and recent memory grossly intact. Patient has slow mentation and monotonous tone to voice. Results Imaging Imaging Studies: Exam: XR Chest Exam date and time: 12/16/2021 4:57 PM Age: 71 years old Clinical indication: Patient HX: Cough, crackles in base; Covid TECHNIQUE: Imaging protocol: Radiologic exam of the chest. Views: 1 view. COMPARISON: CT CHEST LUNG CANCER SCREEN 05/27/2021 1:12 PM FINDINGS: Lungs: Unremarkable. No consolidation. Pleural spaces: Opacification of the left costophrenic angle is unchanged, most likely secondary to prominent epicardial fat pad. Heart/Mediastinum:? Cardiomediastinal swelling is mildly prominent likely secondary to technique. Bones/joints: Unremarkable. IMPRESSION: No evidence of acute cardiopulmonary process. Labs Result diagrams: 12/17/21 05:55 12/17/21 05:55 Labs: Laboratory Results - last 24 hr 12/16/21 12/16/21 12/16/21 15:55 15:55 15:55 WBC 5.70 RBC 3.92 L Hgb 12.2 Hct 36.6 MCV 93 MCH 31.1 MCHC 33.3 RDW 13.5 Plt Count 193 MPV 8.6 Immature Gran % 0.7 Neutrophils % 79.6 Lymphocytes % 7.7 Monocytes % 11.6 Eosinophils % 0.2 Basophils % 0.2 Nucleated RBC % 0.0 Absolute Neutrophils 4.54 Absolute Lymphocytes 0.44 L Absolute Monocytes 0.66 Absolute Eosinophils 0.01 Absolute Basophils 0.01 VBG pH VBG pCO2 VBG pO2 VBG HCO3 VBG Total CO2 VBG O2 Saturation VBG Base Excess Sodium 130 L Potassium 4.7 Chloride 94 L Carbon Dioxide 29.1 Anion Gap 6.9 BUN 33 H Creatinine 1.9 H Est GFR (CKD-EPI 2020) 28.23 Glucose 324 H Calcium 9.0 Total Bilirubin 0.5 AST 42 H ALT 30 Alkaline Phosphatase 82 Troponin I < 50 NT-Pro-B Natriuret Pep 1245 H Total Protein 7.6 Albumin 2.7 L Urine Color Urine Clarity Urine pH Ur Specific [place] Urine Protein Urine Ketones Urine Blood Urine Nitrite Urine Bilirubin Urine Urobilinogen Ur Leukocyte Esterase Urine RBC Urine WBC Ur Epithelial Cells Urine Crystals Urine Bacteria Urine Casts Urine Mucus Urine Other Ur Culture Indicated? Urine Glucose COVID-19 Source SARS-CoV-2 (PCR) Influenza Type A (PCR) Influenza Type B (PCR) RSV (PCR) 12/16/21 12/16/21 12/16/21 15:55 16:00 18:00 WBC RBC Hgb Hct MCV MCH MCHC RDW Plt Count MPV Immature Gran % Neutrophils % Lymphocytes % Monocytes % Eosinophils % Basophils % Nucleated RBC % Absolute Neutrophils Absolute Lymphocytes Absolute Monocytes Absolute Eosinophils Absolute Basophils VBG pH 7.39 VBG pCO2 50 VBG pO2 37 VBG HCO3 30 H VBG Total CO2 27 VBG O2 Saturation 70 VBG Base Excess 5 H Sodium Potassium Chloride Carbon Dioxide Anion Gap BUN Creatinine Est GFR (CKD-EPI 2020) Glucose Calcium Total Bilirubin AST ALT Alkaline Phosphatase Troponin I NT-Pro-B Natriuret Pep Total Protein Albumin Urine Color Ramila Urine Clarity Clear Urine pH 6.0 Ur Specific [place] >= 1.030 H Urine Protein >=300 H Urine Ketones 15 H Urine Blood Moderate H Urine Nitrite Negative Urine Bilirubin Small H Urine Urobilinogen 0.2 Ur Leukocyte Esterase Negative Urine RBC 10-20 H Urine WBC 10-20 H Ur Epithelial Cells Few Urine Crystals Moderate Amorphous Urine Bacteria Moderate Urine Casts 20-50 Fine Granular Urine Mucus Negative Urine Other Negative Ur Culture Indicated? Yes Urine Glucose 500 H COVID-19 Source Nasopharynx SARS-CoV-2 (PCR) Positive A Influenza Type A (PCR) Negative Influenza Type B (PCR) Negative RSV (PCR) Negative Last Vital Signs Temp 36.5 C 12/16/21 14:06 Pulse 105 H 12/16/21 17:29 Resp 30 H 12/16/21 18:40 BP 99/62 L 12/16/21 17:29 Pulse Ox 98 12/16/21 18:40 PAWSS Have you Been Recently Intoxicated or Drunk Within the Last 30 days?: No Have you Ever Experienced Previous Episodes of Alcohol Withdrawal?: No Have you ever Experienced Withdrawal Seizures?: No Have you ever Experienced Delirium Tremens(DT)s?: No Have you ever undergone Alcohol Rehabilitation Treatment (i.e, inpt ot outpatient treatment programs)?: No Have you ever Experienced Blackouts?: No Have you ever Combined Alcohol with other Downers within the last 90 days?: No Have you ever Combined Alcohol with any other Substance of Abuse during the last 90 days?: No Positive Blood Alcohol level on Presentation? [PCS.BAL]: No Evidence of Increased Autonomic Activity (i.e. HR>120, tremor, sweating, agitation, nausea)?: No Result: 0
[2021-12-16] MEDS: cefTRIAXone 2 GM/50 ML BAG IVPB (18:59)
[2021-12-16] MEDS: Dexamethasone 10 MG/ML VIAL IVP (18:59)
[2021-12-16 22:30] LABS: Troponin I < 50 ng/L (<or=60)
[2021-12-16] MEDS: Normal Saline 1,000 ML 80 ML IV (22:30)
[2021-12-16] MEDS: Normal Saline Flush 10 ML SYR IVP (22:32)
[2021-12-16] MEDS: Enoxaparin 40 MG/0.4 ML SYR SC (22:33)
[2021-12-16] MEDS: Gabapentin 100 MG CAP PO (22:33)
[2021-12-16] MEDS: REMDESIVIR 200 MG in Normal Saline 250 ML 250 MG IVPB (22:57)
[2021-12-17] VITALS (22 sets, daily range): BP systolic 120–157; BP diastolic 75–91; PULSE 67–109; RESP 4–31; TEMP 36–36.9; O2SAT 90–98
[2021-12-17] MEDS: DOXYCYCLINE 100 MG in Normal Saline 100 ML IVPB ×2 (00:06→10:31)
--- NOTE | 2021-12-17 01:15 | RT.EKG_ITS ---
APPROVED REPORT Exam: Resting ECG Reason for Exam: A-fib on telemetry; heart rate changes Patient Location: I HR:93 bpm ECG Measurements Heart Rate 93 AXIS MD 157 P 30 QRSd 152 QRS 118 QT 408 T 23 QTc 508 Conclusion Sinus rhythm...normal P axis, V-rate 50- 99 Probable left atrial enlargement...P >50mS, <-0.10mV V1 Right bundle branch block...QRSd>120, terminal axis(90,270)
[2021-12-17] MEDS: Albuterol/Ipratropium 3 ML UPD VIAL UPD ×4 (01:46→20:35)
[2021-12-17] MEDS: Metoprolol 12.5 MG TAB PO ×3 (02:18→18:14)
[2021-12-17 06:16] LABS: Abs Immature Grans 0.03 10^3/uL (0.0-0.06); Absolute Lymphocyte Count 0.25 10^3/uL (1.2-3.4); Absolute Monocyte Count 0.14 10^3/uL (0.1-0.8); HCT 39.2 % (36.0-46.0); Immature Grans % 0.8; Lymphocytes % 6.9; MCH 31.3 pg (27.0-33.0); MCHC 33.2 % (32.0-36.0); MCV 94 fL (80-95); MPV 8.7 fL (8.0-11.0); Monocytes % 3.9; Neutrophils % 88.4; Platelet Count 164 10^3/uL (130-400); RBC 4.16 10^6/uL (3.93-5.22); RDW 13.5 % (11.7-14.6); RDW-SD 45.8 fL; WBC 3.62 10^3/uL (4.4-10.8)
[2021-12-17 06:32] LABS: ALT 23 U/L (14-59); AST 35 U/L (15-37); Albumin 2.6 g/dL (3.4-5.0); Alkaline Phosphatase 77 U/L (46-116); Anion Gap 9.4 mmol/L (3-11); BUN 35 mg/dL (7-18); Bilirubin, Total 0.3 mg/dL (0.2-1.0); CO2 27.6 mmol/L (21.0-32.0); CREATININE 1.9 mg/dL (0.55-1.02); Calcium 8.9 mg/dL (8.5-10.1); Chloride 96 mmol/L (98-107); Estimated GFR 28.23 (mL/min/1.73m2); Glucose 377 mg/dL (74-106); Magnesium 1.8 mg/dL (1.8-2.4); Sodium 133 mmol/L (136-145); Total Protein 7.5 g/dL (6.4-8.2)
--- NOTE | 2021-12-17 08:00 | DI.US_ITS ---
APPROVED REPORT EXAM: Comprehensive 2D, Doppler, and color-flow Echocardiogram Patient Location: In-Patient Room/Bed: 215 Upsetting Machine Operator: Elvira Perez RDCS (AE) Indications: PAF, Obesity, COPD, HTN, COVID Other Information Study Quality: Fair. Technically limited study due to body habitus, inability to position patient exa m done supine bedside. Conclusion Normal left ventricular wall thickness and chamber size. Estimated ejection fraction is 55%. Wall m otion is normal Normal right ventricular size and systolic function Both atria are normal in size The aortic valve is sclerotic without stenosis or regurgitation. There is no additional structural or hemodynamically significant valvular disease Wall motion Left Ventricle The left ventricle is normal size. The overall left ventricular systolic function appears normal. Bor derline concentric left ventricular hypertrophy. There is no ventricular septal defect visualized. LV EF is 55%. Right Ventricle The right ventricle is normal size. The right ventricular systolic function is normal. Atria The left atrium size is normal. The right atrium size is normal. The interatrial septum is intact wit h no evidence for an atrial septal defect. Aortic Valve The Aortic valve is sclerotic. Number of aortic valve leaflets could not be assessed. No hemodynamic ally significant valvular aortic stenosis. No aortic regurgitation is present. Mitral Valve The mitral valve is normal in structure. No evidence of mitral valve stenosis. Trace mitral regurgita tion. Tricuspid Valve The tricuspid valve is normal in structure. There is no tricuspid valve stenosis. Trace tricuspid reg urgitation. Unable to assess PA pressure. Pulmonic Valve Pulmonic valve is not well visualized. There is no pulmonic valvular stenosis. There is no pulmonic v alvular regurgitation. Great Vessels The aortic root is normal in size. The ascending aorta is normal in size. Aortic arch is not well vis ualized. IVC is normal in size and collapses >50% with inspiration. Pericardium There is no pericardial effusion. 2D Dimensions IVSD d PLAX 1.06 cm F: 0.6-1.0 LV Vol A2C d MOD 66.7 mL LVPW d PLAX 1.05 cm F: 0.6 - 1.0 LV Vol A4C d MOD 91.5 mL LVID d PLAX 5.11 cm F: 3.8 - 5.2 LA vol/ BSA A2C s A-L 22.1 mL/m2 LVDs 3.65 cm F: 2.2 - 3.5 LA vol/ BSA A4C s A-L 17.4 mL/m2 Ao Root d 2.44 cm F: 2.7 - 3.3 LA Vol/ BSA Biplane s A-L 21.1 mL/m2 Ao Asc Diam d 3.11 cm F: 2.3 - 3.1 LA Area A4C s MOD 15.52 cm2 LV EF Teichholz 54.3 % LA Area A2C s MOD 18.87 cm2 LVEF (Christiansen's) 56.13 % F: 54 - 74 LV EF A4C MOD 54.3 % LV Volume 58.59 mL F: 46 - 106 LV EF A2C MOD 55.2 % LV Volume Index 26.04 mL/m2 F: 29 - 61 LV EF Biplane MOD 56.1 % LV Vol Biplane MOD 81.2 mL SV 45.57 mL FS 28.25 % SV Index 20.19 mL/m2 LV Diastology E/A Ratio 0.6 MV E Vmax 0.61 (0.4-1.3 m/s) MV A Vmax 0.95 (0.4-1.3 m/s) MV E/A Ratio 0.62 Aortic Valve LVOT Area 3.34 cm2 AoV Area Vmax 1.67 cm2 LVOT Vmax 1.14 m/s AoV Area/ BSA (Vmax) 0.74 cm2/m2 LVOT Mean Beka. 0.71 m/s STEVIE Mean Beka. 1.44 cm2 LVOT Peak Grad 5.2 mmHg STEVIE Mean Beka. Index 0.64 cm2/m2 LVOT Mean Grad 2.4 mmHg LVOT VTI 0.223 m LVOT Diam s 2.05 cm AoV Vmax 2.27 m/s Velocity Ratio 0.50 AoV Mean Beka. 1.64 m/s AoV Peak Grad 20.7 mmHg LVOT SV 74.68 mL AoV Mean Grad 11.9 mmHg AoV VTI 0.471 m AoV Area VTI 1.59 cm2 AoV Area/ BSA (VTI) 0.70 cm/m2 Mitral Valve MV DT 286 (160-240 msec) MV PHT 83 msec MV Area PHT 2.66 cm2 MV VTI 0.278 m MV Area VTI 2.69 (4.0-6.0 cm2) Pulmonary Valve PV Vmax 1.30 (0.5-1.5 m/s) RVOT Peak Gr. 2.19 mmHg PV Peak Grad 6.8 mmHg RVOT Mean Gr. 0.95 mmHg PV Mean Grad 3.4 mmHg RVOT VTI 0.121 m PV VTI 0.168 m RVOT Vmax 0.74 m/s
[2021-12-17] MEDS: Aspirin E.C. 81 MG TABEC PO (08:39)
[2021-12-17] MEDS: Insulin Aspart 300 UNITS/3 ML PEN SC ×4 (08:40→23:08)
[2021-12-17] MEDS: Dexamethasone 10 MG/ML VIAL IVP (08:40)
[2021-12-17] MEDS: Escitalopram 20 MG TAB PO (08:40)
[2021-12-17] MEDS: Normal Saline Flush 10 ML SYR IVP ×3 (08:41→22:51)
--- NOTE | 2021-12-17 12:11 | PDOC.CMIN ---
- If Service Date Differs Date of service: 12/17/21 Time of Service: 12:11 Care Management Initial Assess REASON FOR HOSPITALIZATION:: COVID Pnemonia, COPD exacerbatoin with hypoxemia PAST MEDICAL HISTORY/PAST SURGICAL HISTORY:: Medical History . CKD (chronic kidney disease) stage 3, GFR 30-59 ml/min. Pt. denies. Diabetes mellitus. Diabetes mellitus. 10/21/21 [facility] visit not well controlled, A1C 8.2. Discharge planning issues. On supplemental oxygen therapy. on O2 of night. Is able to lay flat. Surgical History . Hx of hernia repair PREVIOUS FUNCTIONAL STATUS/SOCIAL/FAMILY SUPPORTS:: Shira resides alone in [place], [place] with her two dogs; a boxer and a chihuahua. She has a daughter, Effie who resides in [place] and a Grandson, Camilo who resides in [place] as well as a healthy support network of friends per her report. 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 Shira is independent with all ADLs in the community. CURRENT FUNCTIONAL STATUS:: COVID Precautions, per assessment, Shira continues to require assistance with most all ADLs. ADVANCE DIRECTIVES:: None on file. Has patient been provided with info about the portal/API?: Yes Did the patient sign up for the portal?: No CODE STATUS:: Full Code INSURANCE COVERAGE / FINANCIAL ISSUES:: [facility] CURRENT HOME/COMMUNITY SERVICES/EQUIPMENT:: Home O2, ramp, glucometer PRIMARY CARE PHYSICIAN:: Liliam Noble POTENTIAL DISCHARGE NEEDS:: New VNA services anticipated. PATIENT/FAMILY EDUCATION NEEDS:: Review discharge instructions, discuss Ask Me Three. ANTICIPATED BARRIERS TO DISCHARGE:: None identified. TRANSPORTATION:: Via private vehicle with family PLAN:: Anticipate Shira will return home when ready per MD. She will have new orders for VNA supports at home, and transport via private vehicle with family. CM will continue to follow and support discharge planning considerations.
--- NOTE | 2021-12-17 12:52 | W.INDIABCONS ---
Date of service: 12/17/21 Time of Service: 12:52 Diabetes Inpatient Consult Reason for Visit: DM DESCRIPTION/ASSESSMENT: 71 year old female admitted with PNA, COVID, with respiratory distress. PMH: COPD, DM2, HLD, HTN, CKD. BMI: 48 indicates class 3 obesity. Most recent A1C: 8.5% in May 2021 indicates poorly controlled DM. DM meds: 5 mg glipizide. Due to covid precautions, will not be able to meet with patient. PLAN: Refer Shira to outpatient diabetes education at time of discharge. Time Spent in Nutritional Counseling and Treatment: 0
[2021-12-17] MEDS: cefTRIAXone 1 GM/50 ML BAG IVPB (18:13)
[2021-12-17 18:30] LABS: Glucose 418 mg/dL (74-106)
--- NOTE | 2021-12-17 18:47 | PGE_ITS ---
Date of Service Date of service: 12/17/21 Time of Service: 18:47 Assessment and Plan Assessment and plan (1) Pneumonia: Start date: 12/16/21 Status: Acute Assessment and plan: Patient does have clinical evidence of pneumonia or least exacerbation of bronchitis and will be treated as a community-acquired pneumonia with Rocephin and doxycycline. She also will be treated aggressively for COVID-19 infection being within the 7-day window as best can be ascertained by history. (2) COVID-19: Start date: 12/16/21 Status: Acute Assessment and plan: Acute viral infection with COVID-19 and patient will be started on dexamethasone along with remdesivir. O2 sat mentation titrate as needed. Isolation. (3) COPD with acute exacerbation: Start date: 12/16/21 Status: Acute Assessment and plan: Aggressive nebulizer treatments along with dexamethasone and O2 supplementation adjustment as needed. Weight loss long-term would be helpful for her respiratory status. (4) Respiratory failure with hypoxia: Status: Acute Assessment and plan: Currently at patient's chronic home use of supp. O2 at 2 L/min per nasal cannula. She is obese and probably has obstructive sleep apnea issues. Long- term weight loss would be helpful. Qualifiers: Chronicity: chronic Qualified Code(s): J96.11 - Chronic respiratory failure with hypoxia (5) Diabetes mellitus: Assessment and plan: Increased blood glucose levels. Increase SS insulin to resistant scale. Add scheduled insulin with meals. Add lantus 20 units QD. Monitor and adjust. Qualifiers: Diabetes mellitus complication status: without complication Diabetes mellitus group home insulin use: without moth exterminator use Diabetes mellitus type: type 2 Qualified Code(s): E11.9 - Type 2 diabetes mellitus without complications (6) Hypertension: Status: Chronic Assessment and plan: BP OK Holding lisinopril and HCTZ d/t RHONDA. Monitor. Qualifiers: Hypertension type: unspecified Qualified Code(s): I10 - Essential (primary) hypertension Subjective Subjective Patient reports: no new complaints, feels better, tolerating a regular diet, shortness of breath (With exertion.) and afebrile; denies nausea or vomiting Exam Narrative Exam Narrative: General: Obese female. Lying in bed . Pleasant. HEENT: sclera clear, coarsened facial features, oropharynx with poor dentition and dry mucosa. Neck: Supple without JVD. Lungs: Fair aeration. Clear anteriorly. Nonlabored breathing. Heart: Regular rate and rhythm. + systolic murmur Abdomen: Obese contour, soft and nontender to palpation Extremities: Without clubbing, cyanosis or pitting edema with gross nonpitting edema and skin changes over his legs and feet. Skin: No rashes, lesions. Neuro: Cranial nerves II through XII gross intact, no focalizing motor deficits. No tremor. Psych: Grossly normal appearance. A&O x3. Appropriate affect Objective Last Vital Signs Temp 36.4 C L 12/17/21 15:50 Pulse 83 12/17/21 15:50 Resp 26 H 12/17/21 15:50 BP 126/75 12/17/21 15:50 Pulse Ox 97 12/17/21 15:50 Laboratory Results - last 24 hr 12/16/21 12/16/21 12/17/21 18:00 22:04 05:55 WBC RBC Hgb Hct MCV MCH MCHC RDW Plt Count MPV Immature Gran % Neutrophils % Lymphocytes % Monocytes % Eosinophils % Basophils % Nucleated RBC % Absolute Neutrophils Absolute Lymphocytes Absolute Monocytes Absolute Eosinophils Absolute Basophils Sodium 133 L Potassium 5.0 Chloride 96 L Carbon Dioxide 27.6 Anion Gap 9.4 BUN 35 H Creatinine 1.9 H Est GFR (CKD-EPI 2020) 28.23 Glucose 377 H Calcium 8.9 Magnesium 1.8 Total Bilirubin 0.3 AST 35 ALT 23 Alkaline Phosphatase 77 Troponin I < 50 Total Protein 7.5 Albumin 2.6 L Urine Color Ramila Urine Clarity Clear Urine pH 6.0 Ur Specific [place] >= 1.030 H Urine Protein >=300 H Urine Ketones 15 H Urine Blood Moderate H Urine Nitrite Negative Urine Bilirubin Small H Urine Urobilinogen 0.2 Ur Leukocyte Esterase Negative Urine RBC 10-20 H Urine WBC 10-20 H Ur Epithelial Cells Few Urine Crystals Moderate Amorphous Urine Bacteria Moderate Urine Casts 20-50 Fine Granular Urine Mucus Negative Urine Other Negative Ur Culture Indicated? Yes Urine Glucose 500 H 12/17/21 12/17/21 05:55 17:55 WBC 3.62 L RBC 4.16 Hgb 13.0 Hct 39.2 MCV 94 MCH 31.3 MCHC 33.2 RDW 13.5 Plt Count 164 MPV 8.7 Immature Gran % 0.8 Neutrophils % 88.4 Lymphocytes % 6.9 Monocytes % 3.9 Eosinophils % 0.0 Basophils % 0.0 Nucleated RBC % 0.0 Absolute Neutrophils 3.20 Absolute Lymphocytes 0.25 L Absolute Monocytes 0.14 Absolute Eosinophils 0.00 Absolute Basophils 0.00 Sodium Potassium Chloride Carbon Dioxide Anion Gap BUN Creatinine Est GFR (CKD-EPI 2020) Glucose 418 H Calcium Magnesium Total Bilirubin AST ALT Alkaline Phosphatase Troponin I Total Protein Albumin Urine Color Urine Clarity Urine pH Ur Specific [place] Urine Protein Urine Ketones Urine Blood Urine Nitrite Urine Bilirubin Urine Urobilinogen Ur Leukocyte Esterase Urine RBC Urine WBC Ur Epithelial Cells Urine Crystals Urine Bacteria Urine Casts Urine Mucus Urine Other Ur Culture Indicated? Urine Glucose PAWSS Have you Been Recently Intoxicated or Drunk Within the Last 30 days?: No Have you Ever Experienced Previous Episodes of Alcohol Withdrawal?: No Have you ever Experienced Withdrawal Seizures?: No Have you ever Experienced Delirium Tremens(DT)s?: No Have you ever undergone Alcohol Rehabilitation Treatment (i.e, inpt ot outpatient treatment programs)?: No Have you ever Experienced Blackouts?: No Have you ever Combined Alcohol with other Downers within the last 90 days?: No Have you ever Combined Alcohol with any other Substance of Abuse during the last 90 days?: No Positive Blood Alcohol level on Presentation? [PCS.BAL]: No Evidence of Increased Autonomic Activity (i.e. HR>120, tremor, sweating, agitation, nausea)?: No Result: 0
[2021-12-17] MEDS: Rosuvastatin 10 MG TAB PO (20:35)
[2021-12-17] MEDS: Enoxaparin 40 MG/0.4 ML SYR SC (22:51)
[2021-12-17] MEDS: REMDESIVIR 100 MG in Normal Saline 250 ML 250 MG IVPB (22:51)
[2021-12-17] MEDS: Gabapentin 100 MG CAP PO (22:51)
[2021-12-17 23:42] LABS: Anion Gap 6.2 mmol/L (3-11); BUN 47 mg/dL (7-18); CO2 28.8 mmol/L (21.0-32.0); Calcium 8.9 mg/dL (8.5-10.1); Chloride 95 mmol/L (98-107); Estimated GFR 26.54 (mL/min/1.73m2); Glucose 443 mg/dL (74-106); Potassium 5.1 mmol/L (3.5-5.1); Sodium 130 mmol/L (136-145)
[2021-12-17] MEDS: Insulin Glargine 300 UNITS/3 ML PEN 10 UNITS SC (23:55)
[2021-12-18] VITALS (15 sets, daily range): BP systolic 96–139; BP diastolic 61–86; PULSE 70–105; RESP 2–40; TEMP 35.8–36.6; O2SAT 80–96
[2021-12-18] MEDS: DOXYCYCLINE 100 MG in Normal Saline 100 ML IVPB ×2 (00:34→13:56)
[2021-12-18] MEDS: Albuterol/Ipratropium 3 ML UPD VIAL UPD ×4 (01:35→20:13)
[2021-12-18] MEDS: Metoprolol 12.5 MG TAB PO ×3 (01:38→18:06)
[2021-12-18 08:08] LABS: Abs Immature Grans 0.04 10^3/uL (0.0-0.06); Absolute Basophil Count 0.01 10^3/uL (0.0-0.2); Absolute Lymphocyte Count 0.46 10^3/uL (1.2-3.4); Absolute Monocyte Count 0.57 10^3/uL (0.1-0.8); Absolute Neutrophil Count 6.74 10^3/uL (1.2-6.7); Basophils % 0.1; Immature Grans % 0.5; Lymphocytes % 5.9; MCH 31.6 pg (27.0-33.0); MCHC 34.3 % (32.0-36.0); MCV 92 fL (80-95); MPV 8.7 fL (8.0-11.0); Monocytes % 7.3; Neutrophils % 86.2; Platelet Count 214 10^3/uL (130-400); RDW 13.2 % (11.7-14.6); RDW-SD 44.1 fL; WBC 7.82 10^3/uL (4.4-10.8)
[2021-12-18 08:21] LABS: C-Reactive Protein 1.79 mg/dL (0.0-0.3)
[2021-12-18 08:25] LABS: Anion Gap 8.9 mmol/L (3-11); BUN 45 mg/dL (7-18); CO2 25.1 mmol/L (21.0-32.0); CREATININE 1.6 mg/dL (0.55-1.02); Chloride 99 mmol/L (98-107); Glucose 351 mg/dL (74-106); Potassium 4.8 mmol/L (3.5-5.1); Sodium 133 mmol/L (136-145)
[2021-12-18 08:44] LABS: D-Dimer 789 ng/mlFEU (<500)
[2021-12-18] MEDS: Aspirin E.C. 81 MG TABEC PO (09:22)
[2021-12-18] MEDS: Dexamethasone 10 MG/ML VIAL 6 MG IVP (09:23)
[2021-12-18] MEDS: Escitalopram 20 MG TAB PO (09:23)
[2021-12-18] MEDS: Insulin Glargine 300 UNITS/3 ML PEN 20 UNITS SC (09:24)
[2021-12-18] MEDS: Insulin Aspart 300 UNITS/3 ML PEN SC ×4 (09:24→22:21)
[2021-12-18] MEDS: Insulin REGULAR-Human 100 UNITS/ML UNIT SC (09:25)
[2021-12-18] MEDS: Normal Saline Flush 10 ML SYR IVP ×4 (09:27→22:20)
[2021-12-18] MEDS: Cholecalciferol (Vitamin D3) 1,000 UNIT TAB 1000 UNITS PO (10:55)
[2021-12-18 13:22] LABS: Glucose 425 mg/dL (74-106)
[2021-12-18] MEDS: Insulin Aspart 300 UNITS/3 ML PEN 10 UNITS SC ×2 (14:08→18:05)
--- NOTE | 2021-12-18 15:28 | RESPIRATORY ---
Pt baseline 2LPM, able to walk 5ft and SpO2 dropped to under 80% within 1-2mins of walking/standing up. Prior to walk, SpO2 96% on 2L, HR 70 & RR 20. Patient became very winded and unable to walk barely to footboard of bed from the side. Given scheduled Duoneb post walk and then she laid down to rest.
--- NOTE | 2021-12-18 15:35 | PDOC.CMPRO ---
- If Service Date Differs Date of service: 12/18/21 Time of Service: 15:35 Care Management Progress Note S/O: Shira is on covid precautions and continues to be monitored closely. Per report, she is at her baseline O2 requirement, 2L, but remains short of breath with ambulation. She is being treated with antibiotics for pneumonia, as well as dexamethasone and remdesivir for Covid. CM will continue to follow. A: Shira is a 71 year old female admitted to [facility] on 12/16/21 for Covid pneumonia, COPD exacerbation with hypoxemia. P: Anticipate Shira will return home when ready per MD. She will have new orders for VNA supports at home, and transport via private vehicle with family. CM will continue to follow and support discharge planning considerations.
[2021-12-18] MEDS: cefTRIAXone 1 GM/50 ML BAG IVPB (18:07)
--- NOTE | 2021-12-18 18:19 | W.PM.PROGNOT ---
Date of Service Date of service: 12/18/21 Time of Service: 18:20 Assessment and Plan Assessment and plan (1) Pneumonia: Start date: 12/16/21 Status: Acute Assessment and plan: Cont Rocephin and doxycycline for CAP vs bronchitis. + Covid-19 PNA (2) COVID-19: Start date: 12/16/21 Status: Acute Assessment and plan: Continue dexamethasone along with remdesivir. O2 sat mentation titrate as needed. Isolation. Monitor inflammatory markers; CrP and D-dimer (3) COPD with acute exacerbation: Start date: 12/16/21 Status: Acute Assessment and plan: Aggressive nebulizer treatments along with dexamethasone and O2 supplementation adjustment as needed. Weight loss long-term would be helpful for her respiratory status. Likely componenet of obesity hypoventilation syndrome. (4) Respiratory failure with hypoxia: Status: Acute Assessment and plan: Currently at patient's chronic home use of supp. O2 at 2 L/min per nasal cannula. However, she does desaturate and become dyspneic with mild exertion. She is obese and probably has obstructive sleep apnea issues and OHS. Long-term weight loss would be helpful. Qualifiers: Chronicity: chronic Qualified Code(s): J96.11 - Chronic respiratory failure with hypoxia (5) Diabetes mellitus: Assessment and plan: Increased blood glucose levels. Increase SS insulin to resistant scale. Add scheduled insulin with meals. Add lantus 20 units QD, 10units QHS. Monitor and adjust. 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 Monitor. Qualifiers: Hypertension type: unspecified Qualified Code(s): I10 - Essential (primary) hypertension Subjective Subjective Patient reports: no new complaints, shortness of breath (with ambulation) and afebrile; denies nausea or vomiting Exam Narrative Exam Narrative: General: Obese female. Reviewed lab, VS and reports from RT and nursing. Pt voices no new complaints. Very dyspneic on 2L when ambulated with RT; O2 saturation dropped to 80%. No SOA at rest on 2L No CP/palpitations. Objective Last Vital Signs Temp 36.5 C 12/18/21 15:28 Pulse 79 12/18/21 15:28 Resp 16 12/18/21 15:28 BP 103/67 12/18/21 15:28 Pulse Ox 94 12/18/21 15:28 Laboratory Results - last 24 hr 12/17/21 12/17/21 12/18/21 17:55 23:15 07:35 WBC RBC Hgb Hct MCV MCH MCHC RDW Plt Count MPV Immature Gran % Neutrophils % Lymphocytes % Monocytes % Eosinophils % Basophils % Nucleated RBC % Absolute Neutrophils Absolute Lymphocytes Absolute Monocytes Absolute Eosinophils Absolute Basophils D-Dimer Sodium 130 L Potassium 5.1 Chloride 95 L Carbon Dioxide 28.8 Anion Gap 6.2 BUN 47 H Creatinine 2.0 H Est GFR (CKD-EPI 2020) 26.54 Glucose 418 H 443 H Calcium 8.9 C-Reactive Protein 1.79 H 12/18/21 12/18/21 12/18/21 07:35 07:35 07:35 WBC 7.82 RBC 3.80 L Hgb 12.0 Hct 35.0 L MCV 92 MCH 31.6 MCHC 34.3 RDW 13.2 Plt Count 214 MPV 8.7 Immature Gran % 0.5 Neutrophils % 86.2 Lymphocytes % 5.9 Monocytes % 7.3 Eosinophils % 0.0 Basophils % 0.1 Nucleated RBC % 0.0 Absolute Neutrophils 6.74 H Absolute Lymphocytes 0.46 L Absolute Monocytes 0.57 Absolute Eosinophils 0.00 Absolute Basophils 0.01 D-Dimer 789 H Sodium 133 L Potassium 4.8 Chloride 99 Carbon Dioxide 25.1 Anion Gap 8.9 BUN 45 H Creatinine 1.6 H Est GFR (CKD-EPI 2020) 34.70 Glucose 351 H Calcium 9.0 C-Reactive Protein 12/18/21 12:40 WBC RBC Hgb Hct MCV MCH MCHC RDW Plt Count MPV Immature Gran % Neutrophils % Lymphocytes % Monocytes % Eosinophils % Basophils % Nucleated RBC % Absolute Neutrophils Absolute Lymphocytes Absolute Monocytes Absolute Eosinophils Absolute Basophils D-Dimer Sodium Potassium Chloride Carbon Dioxide Anion Gap BUN Creatinine Est GFR (CKD-EPI 2020) Glucose 425 H Calcium C-Reactive Protein PAWSS Have you Been Recently Intoxicated or Drunk Within the Last 30 days?: No Have you Ever Experienced Previous Episodes of Alcohol Withdrawal?: No Have you ever Experienced Withdrawal Seizures?: No Have you ever Experienced Delirium Tremens(DT)s?: No Have you ever undergone Alcohol Rehabilitation Treatment (i.e, inpt ot outpatient treatment programs)?: No Have you ever Experienced Blackouts?: No Have you ever Combined Alcohol with other Downers within the last 90 days?: No Have you ever Combined Alcohol with any other Substance of Abuse during the last 90 days?: No Positive Blood Alcohol level on Presentation? [PCS.BAL]: No Evidence of Increased Autonomic Activity (i.e. HR>120, tremor, sweating, agitation, nausea)?: No Result: 0
[2021-12-18] MEDS: Rosuvastatin 10 MG TAB PO (20:13)
[2021-12-18] MEDS: Acetaminophen 325 MG TAB PO (20:35)
[2021-12-18] MEDS: Normal Saline 500 ML 30 ML IV (22:19)
[2021-12-18] MEDS: REMDESIVIR 100 MG in Normal Saline 250 ML 250 MG IVPB (22:19)
[2021-12-18] MEDS: Gabapentin 100 MG CAP PO (22:20)
[2021-12-18] MEDS: Enoxaparin 40 MG/0.4 ML SYR SC (22:20)
[2021-12-18] MEDS: Insulin Glargine 300 UNITS/3 ML PEN 10 UNITS SC (22:21)
[2021-12-19] VITALS (8 sets, daily range): BP systolic 107–118; BP diastolic 65–78; PULSE 62–80; RESP 2–20; TEMP 36–36.4; O2SAT 90–97
[2021-12-19] MEDS: DOXYCYCLINE 100 MG in Normal Saline 100 ML IVPB ×2 (00:04→09:20)
[2021-12-19] MEDS: Albuterol/Ipratropium 3 ML UPD VIAL UPD (02:27)
[2021-12-19] MEDS: Acetaminophen 325 MG TAB PO (02:29)
[2021-12-19] MEDS: Metoprolol 12.5 MG TAB PO ×3 (02:30→17:34)
[2021-12-19] MEDS: Albuterol 2.5 MG/3 ML INH SOLN VIAL UPD (05:06)
[2021-12-19 05:45] LABS: *AMPHETAMINES SCREEN URINE Negative (Negative); *BARBITURATES SCREEN URINE Negative (Negative); *BENZODIAZEPINES SCREEN URINE Negative (Negative); Cannabinoids THC Negative (Negative); Cocaine Screen,Urine Negative (Negative); METHADONE URINE SCREEN Negative (Negative); OPIATES URINE SCREEN Negative (Negative)
[2021-12-19 05:46] LABS: Tricyclic Antidepressants Positive (Negative)
[2021-12-19 08:11] LABS: Anion Gap 10.2 mmol/L (3-11); BUN 51 mg/dL (7-18); CO2 26.8 mmol/L (21.0-32.0); CREATININE 1.8 mg/dL (0.55-1.02); Calcium 9.6 mg/dL (8.5-10.1); Chloride 100 mmol/L (98-107); Estimated GFR 30.12 (mL/min/1.73m2); Glucose 182 mg/dL (74-106); Potassium 4.4 mmol/L (3.5-5.1); Sodium 137 mmol/L (136-145)
[2021-12-19 08:18] LABS: Hemoglobin A1C 9.2 % (<5.7)
[2021-12-19] MEDS: Normal Saline Flush 10 ML SYR IVP ×3 (08:23→22:15)
[2021-12-19] MEDS: Escitalopram 20 MG TAB PO (08:24)
[2021-12-19] MEDS: Dexamethasone 10 MG/ML VIAL 6 MG IVP (08:24)
[2021-12-19] MEDS: Aspirin E.C. 81 MG TABEC PO (08:24)
[2021-12-19] MEDS: Cholecalciferol (Vitamin D3) 1,000 UNIT TAB 1000 UNITS PO (08:25)
[2021-12-19] MEDS: Insulin Aspart 300 UNITS/3 ML PEN 10 UNITS SC ×3 (08:29→17:37)
[2021-12-19] MEDS: Insulin Aspart 300 UNITS/3 ML PEN SC ×4 (08:29→21:01)
[2021-12-19] MEDS: Insulin Glargine 300 UNITS/3 ML PEN 20 UNITS SC (08:30)
[2021-12-19 08:35] LABS: D-Dimer 699 ng/mlFEU (<500)
--- NOTE | 2021-12-19 09:07 | PDOC.CMPRO ---
- If Service Date Differs Date of service: 12/19/21 Time of Service: 09:07 Care Management Progress Note S/O: Shira is on covid precautions and continues to be monitored closely. Per report, she is at her baseline O2 requirement, 2L, but remains short of breath with any activity. Her vital signs are stable and she is afebrile. Shira is being treated with antibiotics for pneumonia, as well as dexamethasone and remdesivir for Covid. A: Shira is a 71 year old female admitted to [facility] on 12/16/21 for Covid pneumonia, COPD exacerbation with hypoxemia. P: Anticipate Shira will return home when ready per MD. She will have new orders for VNA supports at home, and transport via private vehicle with family. CM will continue to follow and support discharge planning considerations.
[2021-12-19] MEDS: Ipratropium/Albuterol 4 GM 120 PUFF INH IH ×3 (11:40→20:48)
--- NOTE | 2021-12-19 11:44 | RESPIRATORY ---
Pt's baseline is 2Lpm O2 to be worn 13/10. DME: [facility]. Pt states that she does wear O2 at home during the night, and knows that she should wear it during the day as well, but sometimes does not.
[2021-12-19] MEDS: cefTRIAXone 1 GM/50 ML BAG IVPB (17:34)
--- NOTE | 2021-12-19 18:38 | W.PM.PROGNOT ---
Date of Service Date of service: 12/19/21 Time of Service: 18:39 Assessment and Plan Assessment and plan (1) Pneumonia: Start date: 12/16/21 Status: Acute Assessment and plan: Cont Rocephin and doxycycline for CAP vs bronchitis. + Covid-19 PNA (2) COVID-19: Start date: 12/16/21 Status: Acute Assessment and plan: Continue dexamethasone along with remdesivir. O2 sat mentation titrate as needed. Isolation. Monitor inflammatory markers; CrP and D-dimer; improving. (3) COPD with acute exacerbation: Start date: 12/16/21 Status: Acute Assessment and plan: Aggressive nebulizer treatments along with dexamethasone and O2 supplementation adjustment as needed. Weight loss long-term would be helpful for her respiratory status. Likely componenet of obesity hypoventilation syndrome. (4) Respiratory failure with hypoxia: Status: Acute Assessment and plan: Currently at patient's chronic home use of supp. O2 at 2 L/min per nasal cannula. However, she does desaturate and become dyspneic with mild exertion. She is obese and probably has obstructive sleep apnea issues and OHS. Long-term weight loss would be helpful. Qualifiers: Chronicity: chronic Qualified Code(s): J96.11 - Chronic respiratory failure with hypoxia (5) Diabetes mellitus: Assessment and plan: Increased blood glucose levels. Increase SS insulin to resistant scale. Add scheduled insulin with meals. Add lantus 20 units QD, 10units QHS. Monitor and adjust. 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 Monitor. Qualifiers: Hypertension type: unspecified Qualified Code(s): I10 - Essential (primary) hypertension Subjective Subjective Patient reports: no new complaints, tolerating a regular diet, shortness of breath (with exertion) and afebrile; denies nausea or vomiting Exam Narrative Exam Narrative: Reviewed chart / d/w pt. BP 113/77. P 63. RR 18. T 36.3. Ox saturation 95% on 2L Objective Last Vital Signs Temp 36.3 C L 12/19/21 12:27 Pulse 63 12/19/21 12:27 Resp 18 12/19/21 12:27 BP 113/77 12/19/21 12:27 Pulse Ox 95 12/19/21 12:27 Laboratory Results - last 24 hr 12/19/21 12/19/21 12/19/21 05:15 07:15 07:15 D-Dimer Sodium Potassium Chloride Carbon Dioxide Anion Gap BUN Creatinine Est GFR (CKD-EPI 2020) Glucose Hemoglobin A1c 9.2 H Calcium C-Reactive Protein 1.00 H Urine Opiates Screen Negative Urine Methadone Screen Negative Ur Barbiturates Screen Negative Ur Tricyclics Screen Positive A Ur Amphetamines Screen Negative U Benzodiazepines Scrn Negative Urine Cocaine Screen Negative Ur THC Screen Negative 12/19/21 12/19/21 07:15 07:15 D-Dimer 699 H Sodium 137 Potassium 4.4 Chloride 100 Carbon Dioxide 26.8 Anion Gap 10.2 BUN 51 H Creatinine 1.8 H Est GFR (CKD-EPI 2020) 30.12 Glucose 182 H Hemoglobin A1c Calcium 9.6 C-Reactive Protein Urine Opiates Screen Urine Methadone Screen Ur Barbiturates Screen Ur Tricyclics Screen Ur Amphetamines Screen U Benzodiazepines Scrn Urine Cocaine Screen Ur THC Screen PAWSS Have you Been Recently Intoxicated or Drunk Within the Last 30 days?: No Have you Ever Experienced Previous Episodes of Alcohol Withdrawal?: No Have you ever Experienced Withdrawal Seizures?: No Have you ever Experienced Delirium Tremens(DT)s?: No Have you ever undergone Alcohol Rehabilitation Treatment (i.e, inpt ot outpatient treatment programs)?: No Have you ever Experienced Blackouts?: No Have you ever Combined Alcohol with other Downers within the last 90 days?: No Have you ever Combined Alcohol with any other Substance of Abuse during the last 90 days?: No Positive Blood Alcohol level on Presentation? [PCS.BAL]: No Evidence of Increased Autonomic Activity (i.e. HR>120, tremor, sweating, agitation, nausea)?: No Result: 0
[2021-12-19] MEDS: Rosuvastatin 10 MG TAB PO (20:47)
[2021-12-19] MEDS: Insulin Glargine 300 UNITS/3 ML PEN 10 UNITS SC (20:58)
[2021-12-19] MEDS: Gabapentin 100 MG CAP PO (21:34)
[2021-12-19] MEDS: Enoxaparin 40 MG/0.4 ML SYR SC (21:34)
[2021-12-19] MEDS: REMDESIVIR 100 MG in Normal Saline 250 ML 250 MG IVPB (22:15)
[2021-12-20 00:03] VITALS: BP 104/73; PULSE 63; RESP 16; TEMP 35.9; O2SAT 96
[2021-12-20] MEDS: DOXYCYCLINE 100 MG in Normal Saline 100 ML IVPB ×2 (00:04→09:13)
[2021-12-20] MEDS: Metoprolol 12.5 MG TAB PO ×3 (01:12→17:25)
[2021-12-20 06:06] VITALS: BP 136/85; PULSE 60; RESP 18; TEMP 36; O2SAT 97
[2021-12-20 07:09] LABS: C-Reactive Protein 0.54 mg/dL (0.0-0.3)
[2021-12-20 07:52] LABS: D-Dimer 591 ng/mlFEU (<500)
[2021-12-20 08:27] VITALS: BP 107/85; PULSE 85; RESP 18; TEMP 36.5; O2SAT 97
[2021-12-20] MEDS: Ipratropium/Albuterol 4 GM 120 PUFF INH IH ×4 (08:54→19:39)
[2021-12-20 08:55] VITALS: O2SAT 94
[2021-12-20] MEDS: Dexamethasone 10 MG/ML VIAL 6 MG IVP (09:13)
[2021-12-20] MEDS: Normal Saline Flush 10 ML SYR IVP ×2 (09:13→17:26)
[2021-12-20] MEDS: Aspirin E.C. 81 MG TABEC PO (09:16)
[2021-12-20] MEDS: Escitalopram 20 MG TAB PO (09:16)
[2021-12-20] MEDS: Cholecalciferol (Vitamin D3) 1,000 UNIT TAB 1000 UNITS PO (09:16)
[2021-12-20] MEDS: Insulin Glargine 300 UNITS/3 ML PEN 20 UNITS SC (09:17)
[2021-12-20] MEDS: Insulin Aspart 300 UNITS/3 ML PEN 15 UNITS SC ×3 (09:17→17:21)
[2021-12-20] MEDS: Insulin Aspart 300 UNITS/3 ML PEN SC ×2 (09:18→12:29)
[2021-12-20] MEDS: Polyethylene Glycol 3350 17 GM PACKET PO (09:23)
--- NOTE | 2021-12-20 11:37 | PDOC.CMPRO ---
- If Service Date Differs Date of service: 12/20/21 Time of Service: 11:37 Care Management Progress Note S/O: CM attempted to call Shira today, but she did not answer her phone in the room or her cell phone. Per report, she will finish her course of remdesivir tonight. She remains short of breath with ambulation, and her blood sugar has not been well controlled. She is not yet medically cleared for discharge, per MD. CM will continue to follow. A: Shira is a 71 year old female admitted to [facility] on 12/16/21 for Covid pneumonia, COPD exacerbation with hypoxemia. P: Anticipate Shira will return home when ready per MD. She will have new orders for VNA supports at home, and transport via private vehicle with family. CM will continue to follow and support discharge planning considerations.
[2021-12-20] MEDS: cefTRIAXone 1 GM/50 ML BAG IVPB (17:26)
[2021-12-20] MEDS: Acetaminophen 325 MG TAB PO ×2 (17:35→22:16)
--- NOTE | 2021-12-20 18:10 | PGE_ITS ---
Date of Service Date of service: 12/20/21 Time of Service: 18:10 Assessment and Plan Assessment and plan (1) Pneumonia: Start date: 12/16/21 Status: Acute Assessment and plan: Cont Rocephin and doxycycline for CAP vs bronchitis. + Covid-19 PNA Added mucinex and tessalon perls. Encourage use of IS and Acapella. (2) COVID-19: Start date: 12/16/21 Status: Acute Assessment and plan: Continue dexamethasone along with remdesivir. O2 sat mentation titrate as needed. Isolation. Monitor inflammatory markers; CrP and D-dimer; improving. (3) COPD with acute exacerbation: Start date: 12/16/21 Status: Acute Assessment and plan: Aggressive nebulizer treatments along with dexamethasone and O2 supplementation adjustment as needed. Weight loss long-term would be helpful for her respiratory status. Likely componenet of obesity hypoventilation syndrome. (4) Respiratory failure with hypoxia: Status: Acute Assessment and plan: Currently at patient's chronic home use of supp. O2 at 2 L/min per nasal cannula. However, she does desaturate and become dyspneic with mild exertion. She is obese and probably has obstructive sleep apnea issues and OHS. Long-term weight loss would be helpful. Qualifiers: Chronicity: chronic Qualified Code(s): J96.11 - Chronic respiratory failure with hypoxia (5) Diabetes mellitus: Assessment and plan: Glucose levels significantly improved. Cont prandial insulin, SS insulin and long-acting insulin. Monitor and adjust. Qualifiers: Diabetes mellitus type: type 2 Diabetes mellitus residential insulin use: without residential use Diabetes mellitus complication status: without complication Qualified Code(s): E11.9 - Type 2 diabetes mellitus without complications (6) Hypertension: Status: Chronic Assessment and plan: BP OK Holding lisinopril and HCTZ d/t RHONDA. Monitor. Qualifiers: Hypertension type: unspecified Qualified Code(s): I10 - Essential (primary) hypertension (7) Discharge planning issues: Assessment and plan: Anticipate possible need for SNF after D/C d/t her poor mobility d/t dyspnea; will be significantly deconditioned. PT Full Code Subjective Subjective Patient reports: shortness of breath (with exertion) and afebrile; denies nausea or vomiting Interval history since last seen: She has developed a loose cough but having difficulty expectorating. Exam Narrative Exam Narrative: General: Obese female. Lying in bed . Pleasant. Coughing paroxysms. HEENT: sclera clear, coarsened facial features, oropharynx with poor dentition and dry mucosa. Neck: Supple without JVD. Lungs: Diminished breath sounds with experitory wheezes. Heart: Regular rate and rhythm. + systolic murmur Abdomen: Obese contour, soft and nontender to palpation Extremities: Without edema or calf tenderness. Skin: No rashes, lesions. Neuro: Cranial nerves II through XII gross intact, no focalizing motor deficits. No tremor. Psych: Grossly normal appearance. A&O x3. Appropriate affect Objective Last Vital Signs Temp 36.5 C 12/20/21 08:27 Pulse 85 12/20/21 08:27 Resp 18 12/20/21 08:27 BP 107/85 12/20/21 08:27 Pulse Ox 94 12/20/21 08:55 Laboratory Results - last 24 hr 12/20/21 12/20/21 06:20 06:20 D-Dimer 591 H C-Reactive Protein 0.54 H PAWSS Have you Been Recently Intoxicated or Drunk Within the Last 30 days?: No Have you Ever Experienced Previous Episodes of Alcohol Withdrawal?: No Have you ever Experienced Withdrawal Seizures?: No Have you ever Experienced Delirium Tremens(DT)s?: No Have you ever undergone Alcohol Rehabilitation Treatment (i.e, inpt ot outpatient treatment programs)?: No Have you ever Experienced Blackouts?: No Have you ever Combined Alcohol with other Downers within the last 90 days?: No Have you ever Combined Alcohol with any other Substance of Abuse during the last 90 days?: No Positive Blood Alcohol level on Presentation? [PCS.BAL]: No Evidence of Increased Autonomic Activity (i.e. HR>120, tremor, sweating, agitation, nausea)?: No Result: 0
[2021-12-20] MEDS: Benzonatate 200 MG CAP PO (19:36)
[2021-12-20] MEDS: guaiFENesin 600 MG TABCR PO (19:36)
[2021-12-20] MEDS: Rosuvastatin 10 MG TAB PO (19:36)
[2021-12-20 19:40] VITALS: BP 116/79; PULSE 97; RESP 18; TEMP 36.2; O2SAT 97
[2021-12-20] MEDS: REMDESIVIR 100 MG in Normal Saline 250 ML 250 MG IVPB (22:16)
[2021-12-20] MEDS: Enoxaparin 40 MG/0.4 ML SYR SC (22:17)
[2021-12-20] MEDS: Gabapentin 100 MG CAP PO (22:17)
[2021-12-20] MEDS: Insulin Glargine 300 UNITS/3 ML PEN 10 UNITS SC (22:26)
[2021-12-21] MEDS: DOXYCYCLINE 100 MG in Normal Saline 100 ML IVPB ×3 (00:17→22:32)
[2021-12-21 00:26] VITALS: BP 114/77; PULSE 61; RESP 20; TEMP 35.5; O2SAT 97
[2021-12-21] MEDS: Metoprolol 12.5 MG TAB PO ×3 (02:42→17:21)
[2021-12-21 02:46] VITALS: BP 114/73; PULSE 67; RESP 18; TEMP 35.5; O2SAT 99
[2021-12-21 06:35] LABS: Absolute Basophil Count 0.01 10^3/uL (0.0-0.2); Absolute Lymphocyte Count 1.04 10^3/uL (1.2-3.4); Absolute Monocyte Count 1.17 10^3/uL (0.1-0.8); Basophils % 0.1; HCT 43.4 % (36.0-46.0); HGB 14.7 g/dL (11.2-15.7); Immature Grans % 0.8; MCH 31.9 pg (27.0-33.0); MCHC 33.9 % (32.0-36.0); MCV 94 fL (80-95); Neutrophils % 82.1; Platelet Count 323 10^3/uL (130-400); RBC 4.61 10^6/uL (3.93-5.22); RDW 13.4 % (11.7-14.6); RDW-SD 45.8 fL; WBC 12.99 10^3/uL (4.4-10.8)
[2021-12-21 06:40] LABS: Absolute Neutrophil Count 10.66 10^3/uL (1.2-6.7)
[2021-12-21 06:54] LABS: Anion Gap 7.5 mmol/L (3-11); BUN 64 mg/dL (7-18); CO2 28.5 mmol/L (21.0-32.0); CREATININE 1.8 mg/dL (0.55-1.02); Calcium 9.5 mg/dL (8.5-10.1); Chloride 102 mmol/L (98-107); Estimated GFR 30.12 (mL/min/1.73m2); Glucose 181 mg/dL (74-106); Potassium 4.7 mmol/L (3.5-5.1); Sodium 138 mmol/L (136-145)
[2021-12-21 06:58] LABS: C-Reactive Protein 0.38 mg/dL (0.0-0.3)
[2021-12-21 07:48] VITALS: BP 126/83; PULSE 64; RESP 18; TEMP 35.6; O2SAT 96
[2021-12-21] MEDS: Insulin Glargine 300 UNITS/3 ML PEN 20 UNITS SC (07:56)
[2021-12-21] MEDS: Insulin Aspart 300 UNITS/3 ML PEN SC ×4 (07:56→20:40)
[2021-12-21] MEDS: Insulin Aspart 300 UNITS/3 ML PEN 15 UNITS SC ×3 (07:57→17:20)
[2021-12-21] MEDS: Normal Saline Flush 10 ML SYR IVP (07:58)
[2021-12-21] MEDS: Benzonatate 200 MG CAP PO ×3 (07:58→20:18)
[2021-12-21] MEDS: Cholecalciferol (Vitamin D3) 1,000 UNIT TAB 1000 UNITS PO (07:58)
[2021-12-21] MEDS: Dexamethasone 10 MG/ML VIAL 6 MG IVP (07:59)
[2021-12-21] MEDS: Aspirin E.C. 81 MG TABEC PO (07:59)
[2021-12-21] MEDS: guaiFENesin 600 MG TABCR PO ×2 (07:59→20:18)
[2021-12-21] MEDS: Ipratropium/Albuterol 4 GM 120 PUFF INH IH ×4 (07:59→20:41)
[2021-12-21] MEDS: Escitalopram 20 MG TAB PO (07:59)
[2021-12-21 08:31] LABS: D-Dimer 667 ng/mlFEU (<500)
--- NOTE | 2021-12-21 10:25 | IN_ITS ---
Date of service: 12/21/21 Time of Service: 10:00 PT Notes Visit Reasons: Covid Pneumonia, COPD Exacerbation with Hypoxemia Inpatient Physical Therapy Evaluation Date: December 21, 2021 Referring Doctor: Yayo yBers PT Orders: PT CONSULT Precautions: Standard, COVID Patient Profile/Admitting Diagnosis: Shira is a 71 year old female admitted to [facility] on 12/16/21 for Covid pneumonia, COPD exacerbation with hypoxemia. PMHX:(Updated 12/17/21 @ 13:37 by Guy Hensley) Pneumonia (Acute) COVID-19 (Acute) Acute respiratory distress (Acute) COPD with acute exacerbation (Acute) Tobacco abuse (Chronic) Depression (Chronic) Hypertension (Chronic) DVT prophylaxis (Acute) Dental abscess (Acute) COPD (chronic obstructive pulmonary disease) (Chronic) Respiratory failure with hypoxia (Acute) Personal history of nicotine dependence (Acute) Traumatic injury of left lower extremity (Acute) Rhabdomyolysis (Acute) Right ankle injury (Acute) Anemia (Chronic) Medical History CKD (chronic kidney disease) stage 3, GFR 30-59 ml/min Pt. denies Diabetes mellitus Diabetes mellitus 10/21/21 [facility] visit not well controlled, A1C 8.2 Discharge planning issues On supplemental oxygen therapy on O2 of night. Is able to lay flat Surgical History Hx of hernia repair Social History/Home Situation:Shira resides alone in [place], [place] with her two dogs; a boxer and a chihuahua. She has a daughter, Effie who resides in [place] and a Grandson, Camilo who resides in [place] as well as a healthy support network of friends per her report. 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 Shira is independent with all ADLs in the community at baseline. She reports use of a cane for ambulation. She has a ramp to enter her home, once inside all one level. Current Functional Limitations: Decreased activity tolerance due to SOB, general weakness due to immobility secondary to ongoing illness Equipment Owned/DME: Cane Subjective: Shira notes that she remains very tired. She has not gotten a lot of rest and secondary to this is unsure how much she can do today with PT. Is agreeable to evaluation. Objective: General Observation: IV access, O2 via nasal canula 2.5 liters Mental Status: Alert and oriented x3 Pain: Declines pain Vital Signs: O2 saturation at rest 98% on 2.5 liters via nasal canula. With activity desated to 92% however quickly recovered to 98% within seconds of resting. ROM: Right Upper Extremity: Demonstrates WFL AROM of R UE Left Upper Extremity: Demonstrates WFL AROM of L UE Right Lower Extremity: Demonstrates WFL AROM of R LE with exception of limited ankle DF Left Lower Extremity: Demonstrates WFL AROM of L LE Strength: Right Upper Extremity: Demonstrates grossly 4/5 R UE strength upon resistance. Left Upper Extremity: Demonstrates grossly 4/5 L UE strength upon resistance Right Lower Extremity: Hip flexion 3+/5, knee extension/flexion 5/5, DF 3/5 Left Lower Extremity: Hip flexion 3+/5, knee extension/flexion 5/5, DF 4/5 Bed Mobility/Transfers: Supine to sit: Independent Sit to supine: Independent Sit to stand: SBA Stand to sit: SBA Bed to chair: SBA with SPC Chair to bed: SBA with SPC Gait: Shira ambulated from bed to chair 5 steps with use of SPC SBA on 2.5 liters of O2 via nasal canula. Balance: Static Sitting: Normal Dynamic Sitting: Normal Static Standing: Good Dynamic Standing: Fair Special Tests: Mobility Limitations Standardized Measure [facility] AM-PAC 6 clicks Basic Mobility Inpatient Short Form: Raw Score: 22 CMS Score:21% Informed Consent/Education: Patient instructed in purpose of PT consult and plan of care. Assessment: Patient is a 71 year old female referred to physical therapy services with the diagnosis of Covid pneumonia, COPD exacerbation with hypoxemia. Patient presents with clinical signs and symptoms consistent with diagnosis, as demonstrated by the following impairment level findings: mild LE weakness due to immobility, SOB with activity and transfers . Impairments are contributing to the following functional limitations: decreased functional endurance, SOB with functional activity, decreased activity tolerance. Patient is assessed as a Moderate 99936 complexity based on the following: History: As above Examination: As above Presentation: Stable Decision Making: Moderate Goals: Goals X1 week 1. Supine-Sit Independent 2. Sit-Supine Independent 3. Sit-Stand Independent 4. Stand-Sit Independent 5. Bed-Chair Independent 6. Chair-Bed Independent 7. Gait 50 ftx2 with use of SPC with reduced dyspnea Plan of Care/Treatment Plan: 1-2x/day, 7 days/week x 1 week. Plan of care has been reviewed with the GAS METER READER providing the service under Physical Therapy direction. Initiate Physical Therapy intervention for strengthening, bed mobility, transfers, gait, stairs, balance training, use of assistive device. DISCHARGE RECOMMENDATIONS: Home with VNA services TREATMENT CODE/TIME: 79972, IE, 10:00 AM, 30 minutes ADAN Downey [facility] Disclaimer: This note was created using [employer] voice recognition software. It was reviewed for major content. However, there may be multiple small discrepancies and errors due to the voice recognition aspects of the software.
[2021-12-21] MEDS: Normal Saline 500 ML 30 ML IV (10:35)
[2021-12-21 11:36] VITALS: BP 89/71; PULSE 69; RESP 18; TEMP 35.9; O2SAT 99
[2021-12-21 12:30] VITALS: RESP 6
[2021-12-21] MEDS: Nystatin POWDER 60 GM JAR TP ×2 (13:31→20:19)
[2021-12-21] MEDS: cefTRIAXone 1 GM/50 ML BAG IVPB (17:20)
[2021-12-21 17:21] VITALS: BP 146/84; PULSE 94
[2021-12-21] MEDS: Rosuvastatin 10 MG TAB PO (20:18)
[2021-12-21] MEDS: REMDESIVIR 100 MG in Normal Saline 250 ML 250 MG IVPB (20:18)
[2021-12-21] MEDS: Gabapentin 100 MG CAP PO (20:18)
[2021-12-21] MEDS: Insulin Glargine 300 UNITS/3 ML PEN 10 UNITS SC (20:41)
--- NOTE | 2021-12-21 20:45 | W.PM.PROGNOT ---
Date of Service Date of service: 12/21/21 Time of Service: 20:45 Assessment and Plan Assessment and plan (1) COVID-19: Start date: 12/16/21 Status: Acute Assessment and plan: with hypoxia. Continue dexamethasone, remdesivir. Add vitamin c, d, zinc, melatonin, famotidine. Encourage pulmonary toilet. Continue to trend inflammatory markers. (2) Pneumonia: Start date: 12/16/21 Status: Acute Assessment and plan: Continue ceftriaxone + doxycycline. Mucolytics. (3) COPD with acute exacerbation: Start date: 12/16/21 Status: Acute Assessment and plan: Add CPAP to the regimen. Continue bronchodilators. (4) Respiratory failure with hypoxia: Status: Acute Assessment and plan: Add CPAP. As above Qualifiers: Chronicity: chronic Qualified Code(s): J96.11 - Chronic respiratory failure with hypoxia (5) Diabetes mellitus: Assessment and plan: Continue current regimen. 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 Qualifiers: Hypertension type: unspecified Qualified Code(s): I10 - Essential (primary) hypertension (7) Discharge planning issues: Assessment and plan: Anticipate SNF on D/c. PT consulted. Full Code (8) DVT prophylaxis: Status: Acute Assessment and plan: SC enoxaparin Subjective Subjective Interval history since last seen: Ms Kelly states she does not feel better. She states that she used to wear a CPAP, but it was recalled. She says she threw hers out. She is open to trying it tonight. Denies dizziness, chest pain, nausea. Reports weakness, fatigue, shortness of breath. She has been on 3L of O2 by [place]. Exam Narrative Exam Narrative: General: Obese female who is A&Ox3 and proning, on 3L of O2 by [place] HEENT: EOMI, MMM Heart: RRR, no m/r/g Lungs: diminished breath sounds B Abdomen: soft, nontender, nondistended Extremities: trace edema BLEs Objective Last Vital Signs Temp 35.9 C L 12/21/21 11:36 Pulse 94 H 12/21/21 17:21 Resp 18 12/21/21 11:36 BP 146/84 H 12/21/21 17:21 Pulse Ox 99 12/21/21 11:36 Laboratory Results - last 24 hr 12/21/21 12/21/21 12/21/21 06:13 06:13 06:13 WBC RBC Hgb Hct MCV MCH MCHC RDW Plt Count MPV Immature Gran % Neutrophils % Lymphocytes % Monocytes % Eosinophils % Basophils % Nucleated RBC % Absolute Neutrophils Absolute Lymphocytes Absolute Monocytes Absolute Eosinophils Absolute Basophils D-Dimer 667 H Sodium 138 Potassium 4.7 Chloride 102 Carbon Dioxide 28.5 Anion Gap 7.5 BUN 64 H Creatinine 1.8 H Est GFR (CKD-EPI 2020) 30.12 Glucose 181 H Calcium 9.5 C-Reactive Protein 0.38 H 12/21/21 06:13 WBC 12.99 H RBC 4.61 Hgb 14.7 D Hct 43.4 MCV 94 MCH 31.9 MCHC 33.9 RDW 13.4 Plt Count 323 D MPV 9.0 Immature Gran % 0.8 Neutrophils % 82.1 Lymphocytes % 8.0 Monocytes % 9.0 Eosinophils % 0.0 Basophils % 0.1 Nucleated RBC % 0.0 Absolute Neutrophils 10.66 H Absolute Lymphocytes 1.04 L Absolute Monocytes 1.17 H Absolute Eosinophils 0.00 Absolute Basophils 0.01 D-Dimer Sodium Potassium Chloride Carbon Dioxide Anion Gap BUN Creatinine Est GFR (CKD-EPI 2020) Glucose Calcium C-Reactive Protein PAWSS Have you Been Recently Intoxicated or Drunk Within the Last 30 days?: No Have you Ever Experienced Previous Episodes of Alcohol Withdrawal?: No Have you ever Experienced Withdrawal Seizures?: No Have you ever Experienced Delirium Tremens(DT)s?: No Have you ever undergone Alcohol Rehabilitation Treatment (i.e, inpt ot outpatient treatment programs)?: No Have you ever Experienced Blackouts?: No Have you ever Combined Alcohol with other Downers within the last 90 days?: No Have you ever Combined Alcohol with any other Substance of Abuse during the last 90 days?: No Positive Blood Alcohol level on Presentation? [PCS.BAL]: No Evidence of Increased Autonomic Activity (i.e. HR>120, tremor, sweating, agitation, nausea)?: No Result: 0
[2021-12-21] MEDS: Enoxaparin 40 MG/0.4 ML SYR SC (22:33)
[2021-12-22] VITALS (7 sets, daily range): BP systolic 109–164; BP diastolic 71–88; PULSE 46–84; RESP 6–22; TEMP 35.6–36.5; O2SAT 92–98
[2021-12-22 07:49] LABS: Abs Immature Grans 0.08 10^3/uL (0.0-0.06); Absolute Basophil Count 0.01 10^3/uL (0.0-0.2); Absolute Lymphocyte Count 0.87 10^3/uL (1.2-3.4); Absolute Neutrophil Count 10.61 10^3/uL (1.2-6.7); Basophils % 0.1; HGB 13.8 g/dL (11.2-15.7); Immature Grans % 0.6; Lymphocytes % 6.9; MCH 30.9 pg (27.0-33.0); MCHC 32.9 % (32.0-36.0); MCV 94 fL (80-95); MPV 9.3 fL (8.0-11.0); Neutrophils % 84.4; Platelet Count 318 10^3/uL (130-400); RBC 4.47 10^6/uL (3.93-5.22); RDW-SD 45.1 fL; WBC 12.57 10^3/uL (4.4-10.8)
[2021-12-22] MEDS: Insulin Aspart 300 UNITS/3 ML PEN 15 UNITS SC ×3 (07:55→17:29)
[2021-12-22] MEDS: Normal Saline Flush 10 ML SYR IVP ×2 (07:56→19:44)
[2021-12-22] MEDS: Ipratropium/Albuterol 4 GM 120 PUFF INH IH ×4 (07:56→19:48)
[2021-12-22] MEDS: Nystatin POWDER 60 GM JAR TP ×2 (07:56→14:02)
[2021-12-22 07:57] LABS: Absolute Monocyte Count 1.01 10^3/uL (0.1-0.8)
[2021-12-22] MEDS: Cholecalciferol (Vitamin D3) 1,000 UNIT TAB 1000 UNITS PO (07:57)
[2021-12-22] MEDS: guaiFENesin 600 MG TABCR PO ×2 (07:57→19:43)
[2021-12-22] MEDS: Insulin Glargine 300 UNITS/3 ML PEN 20 UNITS SC (07:57)
[2021-12-22] MEDS: Aspirin E.C. 81 MG TABEC PO (07:57)
[2021-12-22] MEDS: Benzonatate 200 MG CAP PO ×3 (07:57→19:42)
[2021-12-22] MEDS: Dexamethasone 10 MG/ML VIAL 6 MG IVP (07:58)
[2021-12-22] MEDS: Escitalopram 20 MG TAB PO (07:58)
[2021-12-22 08:15] LABS: INR 1.1 (0.9-1.1); Prothrombin Time 10.7 sec (9.3-11.0)
[2021-12-22 08:34] LABS: BUN 62 mg/dL (7-18); C-Reactive Protein 0.22 mg/dL (0.0-0.3); CREATININE 1.6 mg/dL (0.55-1.02); Calcium 9.5 mg/dL (8.5-10.1); Chloride 104 mmol/L (98-107); Glucose 101 mg/dL (74-106); Magnesium 1.8 mg/dL (1.8-2.4); Potassium 4.4 mmol/L (3.5-5.1); Sodium 140 mmol/L (136-145)
[2021-12-22] MEDS: Normal Saline 500 ML 30 ML IV (10:35)
[2021-12-22] MEDS: Metoprolol 12.5 MG TAB PO ×2 (10:35→17:27)
[2021-12-22] MEDS: DOXYCYCLINE 100 MG in Normal Saline 100 ML IVPB (10:36)
[2021-12-22 10:41] LABS: Lab Add On Test DONE
--- NOTE | 2021-12-22 11:05 | PTTR_ITS ---
Date of service: 12/22/21 Time of Service: 09:20 PT Notes Visit Reasons: Covid Pneumonia, COPD Exacerbation with Hypoxemia Inpatient Physical Therapy Treatment Note [facility] Date: December 22, 2021 PRECAUTIONS:Standard, COVID SUBJECTIVE: Shira notes that she is feeling a little better however remains very tired. They were able to reduce her oxygen down to 1 liter. She notes that she has been up in the chair since before breakfast. OBJECTIVE: PAIN: Declines pain at time of PT treatment BED MOBILITY/TRANSFERS Sit-stand: SBA Stand-sit: Independent Bed-Chair: SBA with use of SPC Chair-bed: SBA with use of SPC GAIT Assistive Device:SPC Weight bearing: Full Assist: SBA Distance: Shira was able to complete in place marching with use of SPC SBA x 1 minute. Refused to walk in room. VITALS: 96% on 1 liter of O2 via nasal canula at rest. With marching reduced to 91% with quick recovery back to 96% post. THEREX: Completed bilateral UE/LE strength and ROM Shoulder flexion 0-90 degrees x10 reps Bicep curl x10 reps Scapular retraction x10 reps Seated Hip Flexion x10 reps Seated Knee Extension x10 reps Isometric hip adduction x10 reps with 5 sec hold Isometric hip abduction x10 reps with 5 sec hold Ankle pumps x20 reps ASSESSMENT: Tolerated session well with increased therex. Transfers improving. Remains limited with functional endurance and mobility due to generalized weakness and mild SOB. PLAN: Cont with POC within symptom allowance. TREATMENT CODE/TIME: 25 minutes, [id number] 10 minutes [id number] 15 minutes ADAN Downey [facility] Disclaimer: This note was created using [employer] voice recognition software. It was reviewed for major content. However, there may be multiple small discrepancies and errors due to the voice recognition aspects of the software.
[2021-12-22 11:48] LABS: Procalcitonin < 0.1 ng/mL
[2021-12-22] MEDS: Insulin Aspart 300 UNITS/3 ML PEN SC ×3 (12:30→22:13)
[2021-12-22] MEDS: Acetaminophen 325 MG TAB PO (15:19)
--- NOTE | 2021-12-22 17:20 | W.PM.PROGNOT ---
Date of Service Date of service: 12/22/21 Time of Service: 17:20 Assessment and Plan Assessment and plan (1) COVID-19: Status: Acute Assessment and plan: with hypoxia. Improving. Encourage CPAP at night. Continue dexamethasone, remdesivir. Continue vitamin c, d, zinc, melatonin, famotidine. Encourage pulmonary toilet. Continue to trend inflammatory markers. (2) Pneumonia: Status: Acute Assessment and plan: Continue ceftriaxone + doxycycline. Mucolytics. (3) COPD with acute exacerbation: Status: Acute Assessment and plan: Continue CPAP at night. Continue bronchodilators. (4) Respiratory failure with hypoxia: Status: Acute Assessment and plan: As above Qualifiers: Chronicity: chronic Qualified Code(s): J96.11 - Chronic respiratory failure with hypoxia (5) Diabetes mellitus: Assessment and plan: Continue current regimen. 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 Qualifiers: Hypertension type: unspecified Qualified Code(s): I10 - Essential (primary) hypertension (7) Discharge planning issues: Assessment and plan: Anticipate SNF on D/c. PT consulted. Full Code (8) DVT prophylaxis: Status: Acute Assessment and plan: SC enoxaparin Subjective Subjective Interval history since last seen: Ms Kelly states she is still feeling very tired, but her breathing does feel a bit better. Reports a nonproductive cough. Spent the night on CPAP (6 hrs). Now on 1L of O2. Denies dizziness, chest pain, nausea. Exam Narrative Exam Narrative: General: Obese female who is laying on her left side, mildly tachypneic, A&Ox3 and proning, on 1L of O2 by [place] HEENT: EOMI, MMM Heart: RRR, no m/r/g Lungs: diminished breath sounds L, CTA on R Abdomen: soft, nontender, nondistended Extremities: trace edema BLEs Objective Last Vital Signs Temp 36.5 C 12/22/21 15:08 Pulse 84 12/22/21 15:08 Resp 18 12/22/21 15:08 BP 111/76 12/22/21 15:08 Pulse Ox 94 12/22/21 15:08 Laboratory Results - last 24 hr 12/22/21 12/22/21 12/22/21 06:57 06:57 06:57 WBC 12.57 H RBC 4.47 Hgb 13.8 Hct 42.0 MCV 94 MCH 30.9 MCHC 32.9 RDW 13.0 Plt Count 318 MPV 9.3 Immature Gran % 0.6 Neutrophils % 84.4 Lymphocytes % 6.9 Monocytes % 8.0 Eosinophils % 0.0 Basophils % 0.1 Nucleated RBC % 0.0 Absolute Neutrophils 10.61 H Absolute Lymphocytes 0.87 L Absolute Monocytes 1.01 H Absolute Eosinophils 0.00 Absolute Basophils 0.01 PT 10.7 INR 1.1 Sodium 140 Potassium 4.4 Chloride 104 Carbon Dioxide 28.0 Anion Gap 8.0 BUN 62 H Creatinine 1.6 H Est GFR (CKD-EPI 2020) 34.70 Glucose 101 Calcium 9.5 Magnesium 1.8 C-Reactive Protein 0.22 Procalcitonin Add-On Test Request 12/22/21 12/22/21 06:57 06:57 WBC RBC Hgb Hct MCV MCH MCHC RDW Plt Count MPV Immature Gran % Neutrophils % Lymphocytes % Monocytes % Eosinophils % Basophils % Nucleated RBC % Absolute Neutrophils Absolute Lymphocytes Absolute Monocytes Absolute Eosinophils Absolute Basophils PT INR Sodium Potassium Chloride Carbon Dioxide Anion Gap BUN Creatinine Est GFR (CKD-EPI 2020) Glucose Calcium Magnesium C-Reactive Protein Procalcitonin < 0.1 Add-On Test Request DONE PAWSS Have you Been Recently Intoxicated or Drunk Within the Last 30 days?: No Have you Ever Experienced Previous Episodes of Alcohol Withdrawal?: No Have you ever Experienced Withdrawal Seizures?: No Have you ever Experienced Delirium Tremens(DT)s?: No Have you ever undergone Alcohol Rehabilitation Treatment (i.e, inpt ot outpatient treatment programs)?: No Have you ever Experienced Blackouts?: No Have you ever Combined Alcohol with other Downers within the last 90 days?: No Have you ever Combined Alcohol with any other Substance of Abuse during the last 90 days?: No Positive Blood Alcohol level on Presentation? [PCS.BAL]: No Evidence of Increased Autonomic Activity (i.e. HR>120, tremor, sweating, agitation, nausea)?: No Result: 0
[2021-12-22] MEDS: cefTRIAXone 1 GM/50 ML BAG IVPB (17:29)
--- NOTE | 2021-12-22 17:54 | NUR.NOTE ---
Nursing Note: Patient stated she was having difficulty breathing this afternoon. She was a having an episode of a productive cough. She is encouraged to raise from a low fowlers to a sitting position to make it easier to clear secretions. Once sitting she was able to bring some mucous up and out. sat recovered to 95 on 1 liter. Once sitting patient was able to eat. Nursing remains with patient for several minutes to support patient and maintain that she is comfortable and not sob
[2021-12-22] MEDS: Rosuvastatin 10 MG TAB PO (19:42)
[2021-12-22] MEDS: REMDESIVIR 100 MG in Normal Saline 250 ML 250 MG IVPB (19:45)
[2021-12-22] MEDS: Enoxaparin 40 MG/0.4 ML SYR SC (22:11)
[2021-12-22] MEDS: Gabapentin 100 MG CAP PO (22:11)
[2021-12-22] MEDS: Insulin Glargine 300 UNITS/3 ML PEN 10 UNITS SC (22:13)
[2021-12-23 00:26] VITALS: BP 139/86; PULSE 79; RESP 20; TEMP 35.9; O2SAT 91
[2021-12-23] MEDS: DOXYCYCLINE 100 MG in Normal Saline 100 ML IVPB ×2 (01:32→14:17)
[2021-12-23 02:52] VITALS: BP 116/80; PULSE 76; RESP 18; TEMP 35.5
[2021-12-23] MEDS: Metoprolol 12.5 MG TAB PO ×3 (02:58→17:45)
[2021-12-23 07:09] LABS: Abs Immature Grans 0.11 10^3/uL (0.0-0.06); Absolute Basophil Count 0.02 10^3/uL (0.0-0.2); Absolute Lymphocyte Count 0.89 10^3/uL (1.2-3.4); Absolute Monocyte Count 1.33 10^3/uL (0.1-0.8); Basophils % 0.1; HCT 43.6 % (36.0-46.0); HGB 14.1 g/dL (11.2-15.7); Immature Grans % 0.7; Lymphocytes % 5.7; MCH 30.5 pg (27.0-33.0); MCHC 32.3 % (32.0-36.0); MCV 94 fL (80-95); MPV 9.4 fL (8.0-11.0); Monocytes % 8.5; Platelet Count 373 10^3/uL (130-400); RBC 4.63 10^6/uL (3.93-5.22); RDW 13.2 % (11.7-14.6); RDW-SD 44.9 fL; WBC 15.59 10^3/uL (4.4-10.8)
[2021-12-23 07:19] LABS: Prothrombin Time 10.5 sec (9.3-11.0)
[2021-12-23 07:20] LABS: Absolute Neutrophil Count 13.25 10^3/uL (1.2-6.7)
[2021-12-23 07:22] VITALS: BP 127/80; PULSE 71; RESP 19; TEMP 36.2; O2SAT 95
[2021-12-23 07:31] LABS: ALT 29 U/L (14-59); AST 16 U/L (15-37); Albumin 2.7 g/dL (3.4-5.0); Alkaline Phosphatase 57 U/L (46-116); Anion Gap 8.9 mmol/L (3-11); BUN 61 mg/dL (7-18); Bilirubin, Direct 0.1 mg/dL (0.0-0.2); Bilirubin, Total 0.3 mg/dL (0.2-1.0); C-Reactive Protein 0.15 mg/dL (0.0-0.3); CO2 25.1 mmol/L (21.0-32.0); CREATININE 1.6 mg/dL (0.55-1.02); Calcium 9.3 mg/dL (8.5-10.1); Chloride 104 mmol/L (98-107); Glucose 217 mg/dL (74-106); Magnesium 1.9 mg/dL (1.8-2.4); Potassium 4.5 mmol/L (3.5-5.1); Sodium 138 mmol/L (136-145); Total Protein 6.4 g/dL (6.4-8.2)
[2021-12-23 07:52] LABS: D-Dimer 682 ng/mlFEU (<500)
[2021-12-23 08:01] LABS: Ferritin 214 ng/mL (8-252)
[2021-12-23] MEDS: Dexamethasone 10 MG/ML VIAL 6 MG IVP (08:01)
[2021-12-23] MEDS: guaiFENesin 600 MG TABCR PO ×2 (08:01→19:36)
[2021-12-23] MEDS: Normal Saline Flush 10 ML SYR IVP (08:01)
[2021-12-23] MEDS: Benzonatate 200 MG CAP PO ×3 (08:01→19:36)
[2021-12-23] MEDS: Escitalopram 20 MG TAB PO (08:01)
[2021-12-23] MEDS: Aspirin E.C. 81 MG TABEC PO (08:01)
[2021-12-23] MEDS: Cholecalciferol (Vitamin D3) 1,000 UNIT TAB 1000 UNITS PO (08:01)
[2021-12-23] MEDS: Insulin Aspart 300 UNITS/3 ML PEN SC ×4 (08:02→21:29)
[2021-12-23] MEDS: Insulin Aspart 300 UNITS/3 ML PEN 15 UNITS SC ×3 (08:02→17:45)
[2021-12-23] MEDS: Insulin Glargine 300 UNITS/3 ML PEN 20 UNITS SC (08:03)
[2021-12-23] MEDS: Nystatin POWDER 60 GM JAR TP (08:04)
[2021-12-23] MEDS: Ipratropium/Albuterol 4 GM 120 PUFF INH IH ×4 (09:19→19:37)
[2021-12-23 11:30] VITALS: BP 113/71; PULSE 77; RESP 22; TEMP 36.4; O2SAT 98
--- NOTE | 2021-12-23 14:42 | PT.INTREAT ---
PT Notes Visit Reasons: Covid Pneumonia, COPD Exacerbation with Hypoxemia Inpatient Physical Therapy Treatment Note [facility] Date: December 23, 2021 PRECAUTIONS:Standard, COVID SUBJECTIVE: Shira notes that she just did not feel well this morning however is so thankful for the care she is receiving and notes her breathing is better. She did not sleep well last night trying to adjust to her cpap machine. Just does not have any motivation but knows she needs to move to get better. OBJECTIVE: PAIN: Declined pain at time of treatment BED MOBILITY/TRANSFERS Rolling L/R: Independent Supine-sit: Independent Sit-supine: Independent Sit-stand: Independent Stand-sit: Independent Bed-Chair: Supervision Chair-bed: Supervision GAIT Assistive Device: SPC Weight bearing: Full Assist: Supervision Distance: 50ft x2 Deviation: decreased quin widened base of support VITALS: 02 saturation 96% at rest on 1 liter via nasal canula, post therex 91% with quick recovery to 96%. THEREX: Completed UE/LE ROM and strength Shoulder flexion 0-90degrees x10 reps Elbow flexion x10 reps Ankle pumps x20 reps LAQ x10 reps Standing hip flexion x10 reps Standing hip abduction x10 reps Sit to stand x5 reps ASSESSMENT: Shira demonstrated improved endurance with seated and standing therex. Able to walk from bed to door with use of SPC via supervision and assistance of IV pole with manageable symptoms and only mild SOB. O2 saturation remained in the 90's throughout session on 1 liter of O2. PLAN: Continue with POC advancing within symptom allowance. TREATMENT CODE/TIME: 14:15-14:45 30 minutes [id number], [id number] Noni Galaviz, ADAN
[2021-12-23 15:26] VITALS: BP 112/64; PULSE 93; RESP 20; TEMP 36.2; O2SAT 97
--- NOTE | 2021-12-23 17:34 | CMPROGNOTE_ITS ---
- If Service Date Differs Date of service: 12/23/21 Time of Service: 17:34 Care Management Progress Note S/O: Shira continues to be closely monitored while under Covid precautions. She remains on 1L O2, sat 91-92%. She wore her CPAP last night for a few hours. Per MD, this is helping with her O2 requirements during the day. She worked with PT today, who stated that she demonstrated improved endurance, and her oxygen saturation remained in the 90's on 1L O2 during the session. CM will continue to follow. A: Shira is a 71 year old female admitted to [facility] on 12/16/21 for Covid pneumonia, COPD exacerbation with hypoxemia. P: Anticipate Shira will return home when ready per MD. She will have new orders for VNA supports at home, and transport via private vehicle with family. CM will continue to follow and support discharge planning considerations.
[2021-12-23] MEDS: cefTRIAXone 1 GM/50 ML BAG IVPB (17:45)
--- NOTE | 2021-12-23 18:45 | W.PM.PROGNOT ---
Date of Service Date of service: 12/23/21 Time of Service: 18:45 Assessment and Plan Assessment and plan (1) COVID-19: Status: Acute Assessment and plan: with hypoxia, which appears to be her baseline. Improving. Encourage CPAP at night. Check exercise oximetry. Continue dexamethasone, remdesivir. Continue vitamin c, d, zinc, melatonin, famotidine. Encourage pulmonary toilet. Continue to trend inflammatory markers. (2) Pneumonia: Status: Acute Assessment and plan: Continue ceftriaxone + doxycycline. Mucolytics. (3) COPD with acute exacerbation: Status: Acute Assessment and plan: Continue CPAP at night. Continue bronchodilators. (4) Respiratory failure with hypoxia: Status: Acute Assessment and plan: As above Qualifiers: Chronicity: chronic Qualified Code(s): J96.11 - Chronic respiratory failure with hypoxia (5) Diabetes mellitus: Assessment and plan: Continue current regimen. 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 Qualifiers: Hypertension type: unspecified Qualified Code(s): I10 - Essential (primary) hypertension (7) Discharge planning issues: Assessment and plan: Anticipate SNF on D/c. Nearing D/c. PT consulted. Full Code (8) DVT prophylaxis: Status: Acute Assessment and plan: SC enoxaparin Subjective Subjective Interval history since last seen: Ms Kelly feels better today, but remains short of breath. Denies dizziness, chest pain, nausea. Good PO intake. Slept with CPAP. She is down to 1L. At home she is supposed to be on 2L of O2 all the time, she tells me, but hasn't been using it. Nursing is concerned that she is not quite independent in her room. Exam Narrative Exam Narrative: General: Obese female who is sitting up at the edge of the bed with O2 off, not tachypneic or cyanotic, looks better, A&Ox3 HEENT: EOMI, MMM Heart: RRR, no m/r/g Lungs: diminished breath sounds L, CTA on R Abdomen: soft, nontender, nondistended Extremities: +1 edema BLEs Objective Last Vital Signs Temp 36.2 C L 12/23/21 15:26 Pulse 93 H 12/23/21 15:26 Resp 20 12/23/21 15:26 BP 112/64 12/23/21 15:26 Pulse Ox 97 12/23/21 15:26 Laboratory Results - last 24 hr 12/23/21 12/23/21 12/23/21 06:40 06:40 06:40 WBC 15.59 H RBC 4.63 Hgb 14.1 Hct 43.6 MCV 94 MCH 30.5 MCHC 32.3 RDW 13.2 Plt Count 373 MPV 9.4 Immature Gran % 0.7 Neutrophils % 85.0 Lymphocytes % 5.7 Monocytes % 8.5 Eosinophils % 0.0 Basophils % 0.1 Nucleated RBC % 0.0 Absolute Neutrophils 13.25 H Absolute Lymphocytes 0.89 L Absolute Monocytes 1.33 H Absolute Eosinophils 0.00 Absolute Basophils 0.02 PT 10.5 INR 1.0 D-Dimer 682 H Sodium 138 Potassium 4.5 Chloride 104 Carbon Dioxide 25.1 Anion Gap 8.9 BUN 61 H Creatinine 1.6 H Est GFR (CKD-EPI 2020) 34.70 Glucose 217 H Calcium 9.3 Magnesium 1.9 Ferritin 214 Total Bilirubin 0.3 Conjugated Bilirubin 0.1 AST 16 ALT 29 Alkaline Phosphatase 57 C-Reactive Protein 0.15 Total Protein 6.4 Albumin 2.7 L PAWSS Have you Been Recently Intoxicated or Drunk Within the Last 30 days?: No Have you Ever Experienced Previous Episodes of Alcohol Withdrawal?: No Have you ever Experienced Withdrawal Seizures?: No Have you ever Experienced Delirium Tremens(DT)s?: No Have you ever undergone Alcohol Rehabilitation Treatment (i.e, inpt ot outpatient treatment programs)?: No Have you ever Experienced Blackouts?: No Have you ever Combined Alcohol with other Downers within the last 90 days?: No Have you ever Combined Alcohol with any other Substance of Abuse during the last 90 days?: No Positive Blood Alcohol level on Presentation? [PCS.BAL]: No Evidence of Increased Autonomic Activity (i.e. HR>120, tremor, sweating, agitation, nausea)?: No Result: 0
[2021-12-23 19:28] VITALS: BP 126/73; PULSE 83; RESP 20; TEMP 35.8; O2SAT 93
[2021-12-23] MEDS: Rosuvastatin 10 MG TAB PO (19:36)
[2021-12-23] MEDS: REMDESIVIR 100 MG in Normal Saline 250 ML 250 MG IVPB (19:38)
[2021-12-23] MEDS: Gabapentin 100 MG CAP PO (21:27)
[2021-12-23] MEDS: Enoxaparin 40 MG/0.4 ML SYR SC (21:28)
[2021-12-23] MEDS: Insulin Glargine 300 UNITS/3 ML PEN 10 UNITS SC (21:30)
[2021-12-24] VITALS (116 sets, daily range): BP systolic 59–157; BP diastolic 23–135; PULSE 61–171; RESP 9–48; TEMP 35.6–37.2; O2SAT 86–98
[2021-12-24] MEDS: Metoprolol 12.5 MG TAB PO ×3 (02:54→15:54)
[2021-12-24] MEDS: Normal Saline Flush 10 ML SYR IVP ×2 (02:55→13:49)
[2021-12-24] MEDS: DOXYCYCLINE 100 MG in Normal Saline 100 ML IVPB ×2 (02:55→15:47)
[2021-12-24 06:49] LABS: Abs Immature Grans 0.13 10^3/uL (0.0-0.06); Absolute Basophil Count 0.02 10^3/uL (0.0-0.2); Absolute Monocyte Count 1.47 10^3/uL (0.1-0.8); Absolute Neutrophil Count 14.12 10^3/uL (1.2-6.7); Basophils % 0.1; Eosinophils % 0.1; HCT 44.2 % (36.0-46.0); HGB 14.6 g/dL (11.2-15.7); Immature Grans % 0.8; Lymphocytes % 7.9; MCH 31.2 pg (27.0-33.0); MCV 94 fL (80-95); MPV 9.6 fL (8.0-11.0); Monocytes % 8.6; Neutrophils % 82.5; Platelet Count 447 10^3/uL (130-400); RBC 4.68 10^6/uL (3.93-5.22); RDW 13.3 % (11.7-14.6); RDW-SD 46.2 fL; WBC 17.11 10^3/uL (4.4-10.8)
[2021-12-24 06:51] LABS: Absolute Eosinophil Count 0.02 10^3/uL (0.0-0.7); Absolute Lymphocyte Count 1.35 10^3/uL (1.2-3.4)
[2021-12-24 06:55] LABS: Prothrombin Time 10.3 sec (9.3-11.0)
[2021-12-24 07:11] LABS: ALT 35 U/L (14-59); AST 18 U/L (15-37); Albumin 2.9 g/dL (3.4-5.0); Alkaline Phosphatase 59 U/L (46-116); Anion Gap 7.8 mmol/L (3-11); BUN 59 mg/dL (7-18); Bilirubin, Direct 0.1 mg/dL (0.0-0.2); Bilirubin, Total 0.4 mg/dL (0.2-1.0); C-Reactive Protein 0.09 mg/dL (0.0-0.3); CO2 27.2 mmol/L (21.0-32.0); CREATININE 1.6 mg/dL (0.55-1.02); Calcium 9.4 mg/dL (8.5-10.1); Chloride 103 mmol/L (98-107); Glucose 116 mg/dL (74-106); Magnesium 1.9 mg/dL (1.8-2.4); PHOSPHORUS 3.8 mg/dL (2.6-4.7); Potassium 4.7 mmol/L (3.5-5.1); Sodium 138 mmol/L (136-145); Total Protein 6.8 g/dL (6.4-8.2)
[2021-12-24 07:25] LABS: D-Dimer 637 ng/mlFEU (<500)
[2021-12-24 07:32] LABS: Procalcitonin < 0.1 ng/mL
[2021-12-24 07:43] LABS: Ferritin 226 ng/mL (8-252)
[2021-12-24] MEDS: Benzonatate 200 MG CAP PO ×3 (08:21→19:54)
[2021-12-24] MEDS: Escitalopram 20 MG TAB PO (08:21)
[2021-12-24] MEDS: Dexamethasone 10 MG/ML VIAL 6 MG IVP (08:21)
[2021-12-24] MEDS: guaiFENesin 600 MG TABCR PO ×2 (08:21→19:54)
[2021-12-24] MEDS: Cholecalciferol (Vitamin D3) 1,000 UNIT TAB 1000 UNITS PO (08:21)
[2021-12-24] MEDS: Insulin Glargine 300 UNITS/3 ML PEN 20 UNITS SC (08:21)
[2021-12-24] MEDS: Aspirin E.C. 81 MG TABEC PO (08:21)
[2021-12-24] MEDS: Insulin Aspart 300 UNITS/3 ML PEN 15 UNITS SC ×3 (08:21→17:15)
[2021-12-24] MEDS: Nystatin POWDER 60 GM JAR TP ×3 (08:25→19:55)
[2021-12-24] MEDS: Ipratropium/Albuterol 4 GM 120 PUFF INH IH ×2 (09:11→12:24)
--- NOTE | 2021-12-24 10:07 | PDOC.CMPRO ---
- If Service Date Differs Date of service: 12/24/21 Time of Service: 10:07 Care Management Progress Note S/O: Shira continues to be closely monitored and treated while under Covid precautions. Shira was transferred to the ICU, MD is in the room with her. Current vitals: P-171, RR 24 sob, 97% NC. CM will continue to follow. A: Shira is a 71 year old female admitted to [facility] on 12/16/21 for Covid pneumonia, COPD exacerbation with hypoxemia. P: Anticipate Shira will return home when ready per MD. She will have new orders for VNA supports at home, and transport via private vehicle with family. CM will continue to follow and support discharge planning considerations.
[2021-12-24 11:44] LABS: Source Nasal/Nares
[2021-12-24 12:37] LABS: COVID-19 PCR POSITIVE (Negative)
--- NOTE | 2021-12-24 12:45 | RT.EKG_ITS ---
APPROVED REPORT Exam: Resting ECG Reason for Exam: tachycardia Patient Location: I HR:168 bpm ECG Measurements Heart Rate 168 AXIS NC 107 P -37 QRSd 139 QRS 82 QT 332 T 25 QTc 556 Conclusion Suspect atrial flutter Right bundle branch block...QRSd>120, terminal axis(90,270)
[2021-12-24] MEDS: Metoprolol 5 MG/5 ML VIAL IVP ×2 (13:30→15:13)
[2021-12-24] MEDS: dilTIAZem 25 MG/5 ML VIAL 10 MG IVP (13:55)
[2021-12-24] MEDS: Acetaminophen 325 MG TAB PO (14:13)
[2021-12-24] MEDS: Lactated Ringers 500 ML IV (14:30)
--- NOTE | 2021-12-24 14:42 | PT.INTREAT ---
Date of service: 12/24/21 Time of Service: 12:36 PT Notes Visit Reasons: Covid Pneumonia, COPD Exacerbation with Hypoxemia Inpatient Physical Therapy Treatment Note [facility] Date: 12/24/2021 PRECAUTIONS: Activity as tolerated, COVID-19 SUBJECTIVE: Shira is agreeable to participating in PT. She reports that she feels dizzy with [id number] transfer. She states that she does not want to discharge to a SNF-level rehab and does not want HH PT once she is home because of her overly friendly dog. OBJECTIVE: Held further PT interventions per nursing request due to tachycardia (160's bpm). PAIN: No c/o pain BED MOBILITY/TRANSFERS Supine-sit: SBA Sit-stand: Held GAIT: Held due to elevated HR THEREX: Patient was instructed in seated ankle pumps and heel raises x20 each while seated at EOB. ASSESSMENT: PT interventions were limited today due to tachycardia and dizziness with supine-sit transfer. PLAN: Patient to transfer to ICU-level of care today, per provider. Will discharge patient from PT services due to medical instability and await new PT referral when patient is appropraite. TREATMENT CODE/TIME: 28 minutes; [id number] x2 (12:36)
[2021-12-24 14:46] LABS: Troponin I < 50 ng/L (<or=60)
--- NOTE | 2021-12-24 15:12 | NUR.NOTE ---
Recieved to rm 222 via wheelchair, HR 170, SVT on monitor. Pt assisted to bed, ICU monitor applied. IV LR at 500 ml/hr infusing RAC.
--- NOTE | 2021-12-24 15:35 | W.PM.PROGNOT ---
Date of Service Date of service: 12/24/21 Time of Service: 15:35 Assessment and Plan Assessment and plan (1) SVT (supraventricular tachycardia): Status: Acute Assessment and plan: The patient was not on telemetry until today and, therefore, I do not know the exact onset. Her BP is stable and she is mentating. I do not think she needs cardioversion. I have increased the dose of her oral metoprolol and she is on cardizem gtt, and despite this she is still in SVT. Will try adenosine x1 and, if ineffective, we will start amiodarone. She has been transferred to the ICU. (2) COVID-19: Status: Acute Assessment and plan: with hypoxia, which appears to be her baseline. Improving. Encourage CPAP at night. Continue dexamethasone, remdesivir. Continue vitamin c, d, zinc, melatonin, famotidine. Encourage pulmonary toilet. Continue to trend inflammatory markers. Substitute for albuterol for levalbuterol. (3) Pneumonia: Status: Acute Assessment and plan: Continue ceftriaxone + doxycycline. Mucolytics. (4) COPD with acute exacerbation: Status: Acute Assessment and plan: Continue CPAP at night. Continue bronchodilators. (5) Respiratory failure with hypoxia: Status: Acute Assessment and plan: As above Qualifiers: Chronicity: chronic Qualified Code(s): J96.11 - Chronic respiratory failure with hypoxia (6) Diabetes mellitus: Assessment and plan: Continue current regimen. Qualifiers: Diabetes mellitus complication status: without complication Diabetes mellitus usp insulin use: without termite technician use Diabetes mellitus type: type 2 Qualified Code(s): E11.9 - Type 2 diabetes mellitus without complications (7) Hypertension: Status: Chronic Assessment and plan: Continue to hold lisinopril/HCTZ. Qualifiers: Hypertension type: unspecified Qualified Code(s): I10 - Essential (primary) hypertension (8) DVT prophylaxis: Status: Acute Assessment and plan: SC enoxaparin (9) Discharge planning issues: Assessment and plan: Transferred to the ICU. The patient refuses SNF and home health on d/c. Nearing D/c. PT consulted. Full Code Total Critical Care Time 80 minutes. Subjective Subjective Interval history since last seen: Called to patient's bedside because of reported HR of 170 while working with PT. The patient did report feeling dizzy and more short of breath. Denies chest pain, did endorse nausea to nursing but not to me. Denies headache. EKG with SVT. Nursing reported that metoprolol was previously effective. Transferred to the ICU after a bolus of 5 mg of IV lopressor and 10 mg of IV diltiazem were ineffective. 20 mg of cardizem IV and another bolus of 5 mg of IV lopressor were also ineffective. Exam Narrative Exam Narrative: General: Obese female is laying flat in bed, slightly tachypneic, A&Ox3 HEENT: EOMI, MMM Heart: RRR, tachycardic Lungs: diminished breath sounds B Abdomen: soft, nontender, nondistended Extremities: +2 edema BLEs Objective Last Vital Signs Temp 36.5 C 12/24/21 11:34 Pulse 163 H 12/24/21 15:30 Resp 24 12/24/21 15:13 BP 125/87 12/24/21 15:11 Pulse Ox 97 12/24/21 15:13 Laboratory Results - last 24 hr 12/24/21 12/24/21 12/24/21 06:17 06:17 06:17 WBC 17.11 H RBC 4.68 Hgb 14.6 Hct 44.2 MCV 94 MCH 31.2 MCHC 33.0 RDW 13.3 Plt Count 447 H MPV 9.6 Immature Gran % 0.8 Neutrophils % 82.5 Lymphocytes % 7.9 Monocytes % 8.6 Eosinophils % 0.1 Basophils % 0.1 Nucleated RBC % 0.0 Absolute Neutrophils 14.12 H Absolute Lymphocytes 1.35 Absolute Monocytes 1.47 H Absolute Eosinophils 0.02 Absolute Basophils 0.02 PT INR D-Dimer Sodium 138 Potassium 4.7 Chloride 103 Carbon Dioxide 27.2 Anion Gap 7.8 BUN 59 H Creatinine 1.6 H Est GFR (CKD-EPI 2020) 34.70 Glucose 116 H Calcium 9.4 Phosphorus 3.8 Magnesium 1.9 Ferritin 226 Total Bilirubin 0.4 Conjugated Bilirubin 0.1 AST 18 ALT 35 Alkaline Phosphatase 59 Troponin I C-Reactive Protein 0.09 Total Protein 6.8 Albumin 2.9 L Procalcitonin < 0.1 COVID-19 Source SARS-CoV-2 (PCR) 12/24/21 12/24/21 12/24/21 06:17 11:35 14:00 WBC RBC Hgb Hct MCV MCH MCHC RDW Plt Count MPV Immature Gran % Neutrophils % Lymphocytes % Monocytes % Eosinophils % Basophils % Nucleated RBC % Absolute Neutrophils Absolute Lymphocytes Absolute Monocytes Absolute Eosinophils Absolute Basophils PT 10.3 INR 1.0 D-Dimer 637 H Sodium Potassium Chloride Carbon Dioxide Anion Gap BUN Creatinine Est GFR (CKD-EPI 2020) Glucose Calcium Phosphorus Magnesium Ferritin Total Bilirubin Conjugated Bilirubin AST ALT Alkaline Phosphatase Troponin I < 50 C-Reactive Protein Total Protein Albumin Procalcitonin COVID-19 Source Nasal/Nares SARS-CoV-2 (PCR) POSITIVE A* Objective Narrative Objective Narrative: EKG: HR 168, SVT, RBBB PAWSS Have you Been Recently Intoxicated or Drunk Within the Last 30 days?: No Have you Ever Experienced Previous Episodes of Alcohol Withdrawal?: No Have you ever Experienced Withdrawal Seizures?: No Have you ever Experienced Delirium Tremens(DT)s?: No Have you ever undergone Alcohol Rehabilitation Treatment (i.e, inpt ot outpatient treatment programs)?: No Have you ever Experienced Blackouts?: No Have you ever Combined Alcohol with other Downers within the last 90 days?: No Have you ever Combined Alcohol with any other Substance of Abuse during the last 90 days?: No Positive Blood Alcohol level on Presentation? [PCS.BAL]: No Evidence of Increased Autonomic Activity (i.e. HR>120, tremor, sweating, agitation, nausea)?: No Result: 0
[2021-12-24] MEDS: dilTIAZem 125 MG in Normal Saline 100 ML IV (15:44)
[2021-12-24] MEDS: Adenosine 6 MG/2 ML VIAL IVP (18:10)
[2021-12-24] MEDS: Amiodarone in Dextrose 360 MG/200 ML BAG 33.333 MG IV (18:24)
[2021-12-24] MEDS: Gabapentin 100 MG CAP PO (19:54)
[2021-12-24] MEDS: Rosuvastatin 10 MG TAB PO (19:54)
[2021-12-24] MEDS: Enoxaparin 40 MG/0.4 ML SYR SC (19:54)
[2021-12-24] MEDS: cefTRIAXone 1 GM/50 ML BAG IVPB (20:34)
[2021-12-24 20:52] LABS: Troponin I < 50 ng/L (<or=60)
[2021-12-24] MEDS: Insulin Glargine 300 UNITS/3 ML PEN 10 UNITS SC (21:05)
[2021-12-24] MEDS: Metoprolol 25 MG TAB PO (21:16)
[2021-12-24] MEDS: REMDESIVIR 100 MG in Normal Saline 250 ML 250 MG IVPB (21:16)
[2021-12-25] VITALS (163 sets, daily range): BP systolic 69–152; BP diastolic 12–114; PULSE 46–165; RESP 0–46; TEMP 35.4–36.6; O2SAT 85–100
[2021-12-25] MEDS: dilTIAZem 125 MG in Normal Saline 100 ML 15 MG IV (01:00)
[2021-12-25] MEDS: DOXYCYCLINE 100 MG in Normal Saline 100 ML IVPB ×2 (03:50→13:45)
[2021-12-25] MEDS: Metoprolol 25 MG TAB PO ×4 (03:54→23:16)
[2021-12-25] MEDS: Acetaminophen 325 MG TAB PO ×2 (05:17→20:20)
--- NOTE | 2021-12-25 07:15 | RT.EKG_ITS ---
APPROVED REPORT Exam: Resting ECG Reason for Exam: SVT Patient Location: I HR:101 bpm ECG Measurements Heart Rate 101 AXIS MT [id number] P [id number] QRSd 173 QRS 71 QT 387 T 20 QTc 502 Conclusion Atrial fibrillation...? atrial activity Ventricular premature complex...V complex w/ short R-R interval Right bundle branch block...QRSd>120, terminal axis(90,270)
--- NOTE | 2021-12-25 07:58 | NUR.NOTE ---
PICC line placement in progress, provider asking for stat portable chest; ordered put in order protocol; ROCCO Jones awareNursing Note:
[2021-12-25] MEDS: Amiodarone in Dextrose 360 MG/200 ML BAG 33.333 MG IV ×3 (08:10→20:30)
--- NOTE | 2021-12-25 08:29 | DI.RAD_ITS ---
Exam(s) XR PORTABLE CHEST AP POST LINE EXAM: XR PORTABLE CHEST AP POST LINE CLINICAL HISTORY: Line placement TECHNIQUE: 2D digital imaging was performed. COMPARISON: No exams were available for comparison FINDINGS: The exam is somewhat limited by patient body habitus. Lung bases are not well penetrated. A PICC line is been inserted via the left arm. The tip projects in the superior vena cava. LUNGS: Clear. Minimal blunting at the left costophrenic angle. No pneumothorax. HEART: Enlarged. AORTA: Normal. BONES: Unremarkable for age. Soft tissues: Unremarkable. IMPRESSION: Satisfactory placement of PICC line. DATA REPOSITORY: RADIATION DOSE DELIVERED:
[2021-12-25 08:36] LABS: Lab Add On Test DONE
[2021-12-25] MEDS: Benzonatate 200 MG CAP PO ×3 (09:00→20:21)
[2021-12-25] MEDS: Apixaban 5 MG TAB PO ×2 (09:00→20:20)
[2021-12-25] MEDS: guaiFENesin 600 MG TABCR PO ×2 (09:00→20:21)
[2021-12-25] MEDS: Escitalopram 20 MG TAB PO (09:01)
[2021-12-25] MEDS: Dexamethasone 10 MG/ML VIAL 6 MG IVP (09:01)
[2021-12-25] MEDS: Cholecalciferol (Vitamin D3) 1,000 UNIT TAB 1000 UNITS PO (09:03)
[2021-12-25 09:05] LABS: FREE T4 1.07 ng/dL (0.76-1.46); TSH 0.97 uIU/mL (0.36-3.74)
[2021-12-25 09:13] LABS: ALT 104 U/L (14-59); AST 85 U/L (15-37); Albumin 2.7 g/dL (3.4-5.0); Alkaline Phosphatase 53 U/L (46-116); Anion Gap 6.9 mmol/L (3-11); BUN 68 mg/dL (7-18); Bilirubin, Direct 0.1 mg/dL (0.0-0.2); Bilirubin, Total 0.4 mg/dL (0.2-1.0); C-Reactive Protein 0.09 mg/dL (0.0-0.3); CO2 26.1 mmol/L (21.0-32.0); CREATININE 1.8 mg/dL (0.55-1.02); Calcium 8.8 mg/dL (8.5-10.1); Chloride 103 mmol/L (98-107); Estimated GFR 30.12 (mL/min/1.73m2); Glucose 134 mg/dL (74-106); Magnesium 1.8 mg/dL (1.8-2.4); Potassium 4.1 mmol/L (3.5-5.1); Sodium 136 mmol/L (136-145)
[2021-12-25] MEDS: Insulin Aspart 300 UNITS/3 ML PEN 15 UNITS SC ×3 (09:30→17:22)
[2021-12-25] MEDS: Aspirin E.C. 81 MG TABEC PO (09:31)
[2021-12-25] MEDS: Normal Saline Flush 10 ML SYR IVP ×3 (09:32→20:36)
--- NOTE | 2021-12-25 10:27 | PT.INDS ---
PT Notes Visit Reasons: Covid Pneumonia, COPD Exacerbation with Hypoxemia Inpatient Physical Therapy Discharge Summary Treatment Dates: 01/10/22 - 12/24/21 Referring Doctor: Yayo Byers PT Orders: PT CONSULT Precautions: Standard, COVID This document serves as a summary of care. No PT services were provided on this date. Patient Profile/Admitting Diagnosis: Shira is a 71 year old female admitted to [facility] on 12/16/21 for Covid pneumonia, COPD exacerbation with hypoxemia. She participated in 4 PT sessions, initially improving in independence and safety. Unfortunately, she demonstrated elevated HR during PT session on 12/24/21. Medical work up identified SVT, and patient was transferred to ICU. Patient discharged from PT due to change in medical status. Social History/Home Situation:Shira resides alone in [place], [place] with her two dogs; a boxer and a chihuahua. She has a daughter, Effie who resides in [place] and a Grandson, Camilo who resides in [place] as well as a healthy support network of friends per her report. 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 Shira is independent with all ADLs in the community at baseline. She reports use of a cane for ambulation. She has a ramp to enter her home, once inside all one level. Current Functional Limitations: Decreased activity tolerance due to SOB, general weakness due to immobility secondary to ongoing illness Equipment Owned/DME: Cane Subjective: none obtained Objective: ROM: Right Upper Extremity: Demonstrates WFL AROM of R UE Left Upper Extremity: Demonstrates WFL AROM of L UE Right Lower Extremity: Demonstrates WFL AROM of R LE with exception of limited ankle DF Left Lower Extremity: Demonstrates WFL AROM of L LE Strength: Right Upper Extremity: Demonstrates grossly 4/5 R UE strength upon resistance. Left Upper Extremity: Demonstrates grossly 4/5 L UE strength upon resistance Right Lower Extremity: Hip flexion 3+/5, knee extension/flexion 5/5, DF 3/5 Left Lower Extremity: Hip flexion 3+/5, knee extension/flexion 5/5, DF 4/5 BED MOBILITY/TRANSFERS? ? ? Able to demonstrate the following on 12/23/21: ? Rolling L/R: Independent Supine-sit: Independent? Sit-supine: Independent? Sit-stand: Independent ? Stand-sit: Independent ? Bed-Chair: Supervision ? Chair-bed: Supervision ? GAIT? Able to demonstrate the following on 12/23/21, although with limited tolerance on 12/24/21, with HR up to 160 bpm with mobility:? Assistive Device: SPC? Weight bearing: Full Assist: Supervision ? Distance:? 50ft x2? Deviation: decreased quin widened base of support? Balance: Static Sitting: Normal Dynamic Sitting: Normal Static Standing: Good Dynamic Standing: Fair Assessment: Patient is a 71 year old female referred to physical therapy services with the diagnosis of Covid pneumonia, COPD exacerbation with hypoxemia. Patient participated in 4 PT sessions, initially improving in independence and safety. Unfortunately, she demonstrated elevated HR during PT session on 12/24/21. Medical work up identified SVT, and patient was transferred to ICU. Patient discharged from PT due to change in medical status. Goals: Goals X1 week (ALL GOALS MET DAY PRIOR TO ONSET OF SVT) 1. Supine-Sit Independent 2. Sit-Supine Independent 3. Sit-Stand Independent 4. Stand-Sit Independent 5. Bed-Chair Independent 6. Chair-Bed Independent 7. Gait 50 ftx2 with use of SPC with reduced dyspnea Plan of Care/Treatment Plan: D/C from PT services due to change in medical status DISCHARGE RECOMMENDATIONS: Home with VNA services TREATMENT CODE/TIME: none Josefa Clay, PT, DPT [facility]
[2021-12-25] MEDS: REMDESIVIR 100 MG in Normal Saline 250 ML 250 MG IVPB (10:30)
[2021-12-25] MEDS: Nystatin POWDER 60 GM JAR TP ×2 (10:45→20:21)
[2021-12-25] MEDS: Insulin Glargine 300 UNITS/3 ML PEN 20 UNITS SC (10:45)
[2021-12-25 10:56] LABS: Abs Immature Grans 0.15 10^3/uL (0.0-0.06); Absolute Basophil Count 0.02 10^3/uL (0.0-0.2); Absolute Lymphocyte Count 1.22 10^3/uL (1.2-3.4); Absolute Neutrophil Count 14.53 10^3/uL (1.2-6.7); Basophils % 0.1; HCT 42.4 % (36.0-46.0); HGB 13.7 g/dL (11.2-15.7); Immature Grans % 0.9; Lymphocytes % 7.1; MCH 30.8 pg (27.0-33.0); MCHC 32.3 % (32.0-36.0); MCV 95 fL (80-95); MPV 9.9 fL (8.0-11.0); Monocytes % 7.4; Neutrophils % 84.5; Platelet Count 409 10^3/uL (130-400); RBC 4.45 10^6/uL (3.93-5.22); RDW 13.3 % (11.7-14.6); RDW-SD 46.6 fL
[2021-12-25 11:08] LABS: Absolute Monocyte Count 1.27 10^3/uL (0.1-0.8)
[2021-12-25] MEDS: Normal Saline 500 ML 10 ML IV (11:08)
[2021-12-25 11:18] LABS: INR 1.1 (0.9-1.1); PTT Activated 22.6 sec (21.0-27.5); Prothrombin Time 11.2 sec (9.3-11.0)
[2021-12-25 11:36] LABS: D-Dimer 577 ng/mlFEU (<500)
--- NOTE | 2021-12-25 11:37 | CMPROGNOTE_ITS ---
- If Service Date Differs Date of service: 12/25/21 Time of Service: 11:37 Care Management Progress Note S/O: Shira is being closely monitored at ICU level of care, under covid precautions. Per RN, she is on 4L O2 NC, and she is short of breath while sitting. Per RN, she is sleeping a lot, but is close to proning position, which she is being asked to do. She has difficulty wearing the CPAP, but has been wearing it for short periods of time at night. CM will continue to follow. A: Shira is a 71 year old female admitted to [facility] on 12/16/21 for Covid pneumonia, COPD exacerbation with hypoxemia. P: Anticipate Shira will return home when ready per MD. She will have new orders for VNA supports at home, and transport via private vehicle with family. CM will continue to follow and support discharge planning considerations.
[2021-12-25] MEDS: Insulin Aspart 300 UNITS/3 ML PEN SC ×3 (12:39→23:17)
[2021-12-25] MEDS: Hyaluronidase 150 UNITS VIAL 15 UNITS IJ (13:38)
[2021-12-25] MEDS: Amiodarone 200 MG TAB 400 MG PO ×2 (14:54→20:20)
[2021-12-25] MEDS: cefTRIAXone 1 GM/50 ML BAG IVPB (17:09)
--- NOTE | 2021-12-25 17:32 | W.PM.PROGNOT ---
Date of Service Date of service: 12/25/21 Time of Service: 17:32 Assessment and Plan Assessment and plan (1) Atrial flutter with rapid ventricular response: Status: Acute Assessment and plan: Continue amiodarone gtt x 24 hrs while bridging to oral amiodarone 400 mg PO BID x 14 days, then amiodarone 400 mg PO daily x 14 days, then 200 mg PO daily indefinitely. Continue beta blockers. No role for cardizem gtt - d/c'ed. Start apixaban. Repeat echo. (2) COVID-19: Status: Acute Assessment and plan: with hypoxia. O2 requirement appears to be the same, and I have asked the ICU nursing to wean it down. Improving. Encourage CPAP at night. Continue dexamethasone, remdesivir. Continue vitamin c, d, zinc, melatonin, famotidine. Encourage pulmonary toilet. Continue to trend inflammatory markers. (3) Pneumonia: Status: Acute Assessment and plan: Continue ceftriaxone + doxycycline. Mucolytics. (4) COPD with acute exacerbation: Status: Acute Assessment and plan: Continue CPAP at night. Continue bronchodilators. (5) Respiratory failure with hypoxia: Status: Acute Assessment and plan: As above Qualifiers: Chronicity: chronic Qualified Code(s): J96.11 - Chronic respiratory failure with hypoxia (6) Diabetes mellitus: Assessment and plan: Continue current regimen. 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 Qualifiers: Hypertension type: unspecified Qualified Code(s): I10 - Essential (primary) hypertension (8) DVT prophylaxis: Status: Acute Assessment and plan: SC enoxaparin (9) Discharge planning issues: Assessment and plan: Keep in the ICU. The patient refuses SNF and home health on d/c. Will reconsult PT Full Code Total Critical Care Time 80 minutes. Subjective Subjective Interval history since last seen: Feels better. Denies dizziness, chest pain, breathing is better, denies n/v. In A flutter with HR now down to 90-110s. On amiodarone gtt. Case discussed with Sisi of [facility]. Recommends bridging oral amiodarone 400 mg Po BID - TID x 24 hrs with the drip at 1 mg/hr. Continue amiodarone 400 mg PO BID x 14 days, then 400 mg Po daily x 14 days, then 200 mg PO daily. Exam Narrative Exam Narrative: General: Obese female is A&Ox3, sitting up at the edge of the bed, looks better, on 3L of O2 by NC HEENT: EOMI, MMM Heart: irregularly irregular rhythm, HR in low 100s Lungs: CTAB Abdomen: soft, nontender, nondistended Extremities: +2 edema BLEs Objective Last Vital Signs Temp 36.2 C L 12/25/21 15:00 Pulse 85 12/25/21 17:02 Resp 20 12/25/21 17:02 BP 131/110 H 12/25/21 17:02 Pulse Ox 96 12/25/21 17:02 Laboratory Results - last 24 hr 12/24/21 12/24/21 12/25/21 20:23 20:23 08:30 WBC RBC Hgb Hct MCV MCH MCHC RDW Plt Count MPV Immature Gran % Neutrophils % Band Neutrophils % Lymphocytes % Atypical Lymphs % Monocytes % Eosinophils % Basophils % Metamyelocytes % Myelocytes % Promyelocytes % Other Cells % Nucleated RBC % Absolute Neutrophils Absolute Lymphocytes Absolute Monocytes Absolute Eosinophils Absolute Basophils RBC Morphology Polychromasia Hypochromasia Poikilocytosis Basophilic Stippling Anisocytosis Microcytosis Macrocytosis Spherocytes Tear Drop Cells Ovalocytes Stomatocytes [place] Bodies [place] Cells/Echinocytes Acanthocytes ([place]) Schistocytes PT INR APTT D-Dimer Sodium 136 Potassium 4.1 Chloride 103 Carbon Dioxide 26.1 Anion Gap 6.9 BUN 68 H Creatinine 1.8 H Est GFR (CKD-EPI 2020) 30.12 Glucose 134 H Calcium 8.8 Magnesium 1.8 Total Bilirubin 0.4 Conjugated Bilirubin 0.1 AST 85 H ALT 104 H Alkaline Phosphatase 53 Troponin I < 50 C-Reactive Protein 0.09 Total Protein 6.0 L Albumin 2.7 L TSH 0.97 Free T4 1.07 Add-On Test Request 12/25/21 12/25/21 12/25/21 08:30 08:30 10:15 WBC Cancelled 17.20 H RBC Cancelled 4.45 Hgb Cancelled 13.7 Hct Cancelled 42.4 MCV Cancelled 95 MCH Cancelled 30.8 MCHC Cancelled 32.3 RDW Cancelled 13.3 Plt Count Cancelled 409 H MPV Cancelled 9.9 Immature Gran % Cancelled 0.9 Neutrophils % Cancelled 84.5 Band Neutrophils % Cancelled Lymphocytes % Cancelled 7.1 Atypical Lymphs % Cancelled Monocytes % Cancelled 7.4 Eosinophils % Cancelled 0.0 Basophils % Cancelled 0.1 Metamyelocytes % Cancelled Myelocytes % Cancelled Promyelocytes % Cancelled Other Cells % Cancelled Nucleated RBC % Cancelled 0.0 Absolute Neutrophils Cancelled 14.53 H Absolute Lymphocytes Cancelled 1.22 Absolute Monocytes Cancelled 1.27 H Absolute Eosinophils Cancelled 0.00 Absolute Basophils Cancelled 0.02 RBC Morphology Cancelled Polychromasia Cancelled Hypochromasia Cancelled Poikilocytosis Cancelled Basophilic Stippling Cancelled Anisocytosis Cancelled Microcytosis Cancelled Macrocytosis Cancelled Spherocytes Cancelled Tear Drop Cells Cancelled Ovalocytes Cancelled Stomatocytes Cancelled [place] Bodies Cancelled [place] Cells/Echinocytes Cancelled Acanthocytes ([place]) Cancelled Schistocytes Cancelled PT Cancelled INR Cancelled APTT D-Dimer Cancelled Sodium Potassium Chloride Carbon Dioxide Anion Gap BUN Creatinine Est GFR (CKD-EPI 2020) Glucose Calcium Magnesium Total Bilirubin Conjugated Bilirubin AST ALT Alkaline Phosphatase Troponin I C-Reactive Protein Total Protein Albumin TSH Free T4 Add-On Test Request 12/25/21 12/25/21 10:15 Unknown WBC RBC Hgb Hct MCV MCH MCHC RDW Plt Count MPV Immature Gran % Neutrophils % Band Neutrophils % Lymphocytes % Atypical Lymphs % Monocytes % Eosinophils % Basophils % Metamyelocytes % Myelocytes % Promyelocytes % Other Cells % Nucleated RBC % Absolute Neutrophils Absolute Lymphocytes Absolute Monocytes Absolute Eosinophils Absolute Basophils RBC Morphology Polychromasia Hypochromasia Poikilocytosis Basophilic Stippling Anisocytosis Microcytosis Macrocytosis Spherocytes Tear Drop Cells Ovalocytes Stomatocytes [place] Bodies [place] Cells/Echinocytes Acanthocytes ([place]) Schistocytes PT 11.2 H INR 1.1 APTT 22.6 D-Dimer 577 H Sodium Potassium Chloride Carbon Dioxide Anion Gap BUN Creatinine Est GFR (CKD-EPI 2020) Glucose Calcium Magnesium Total Bilirubin Conjugated Bilirubin AST ALT Alkaline Phosphatase Troponin I C-Reactive Protein Total Protein Albumin TSH Free T4 Add-On Test Request DONE PAWSS Have you Been Recently Intoxicated or Drunk Within the Last 30 days?: No Have you Ever Experienced Previous Episodes of Alcohol Withdrawal?: No Have you ever Experienced Withdrawal Seizures?: No Have you ever Experienced Delirium Tremens(DT)s?: No Have you ever undergone Alcohol Rehabilitation Treatment (i.e, inpt ot outpatient treatment programs)?: No Have you ever Experienced Blackouts?: No Have you ever Combined Alcohol with other Downers within the last 90 days?: No Have you ever Combined Alcohol with any other Substance of Abuse during the last 90 days?: No Positive Blood Alcohol level on Presentation? [PCS.BAL]: No Evidence of Increased Autonomic Activity (i.e. HR>120, tremor, sweating, agitation, nausea)?: No Result: 0
[2021-12-25] MEDS: Ascorbic Acid 500 MG TAB 1000 MG PO (20:20)
[2021-12-25] MEDS: Rosuvastatin 10 MG TAB PO (20:20)
[2021-12-25] MEDS: Docusate Sodium 100 MG CAP PO (20:21)
[2021-12-25] MEDS: Famotidine 20 MG TAB PO (20:21)
[2021-12-25] MEDS: Gabapentin 100 MG CAP PO (20:23)
[2021-12-25 20:58] LABS: Glucose 252 mg/dL (74-106)
[2021-12-25] MEDS: Cyclobenzaprine 10 MG TAB PO (23:16)
[2021-12-25] MEDS: Melatonin 3 MG TAB PO (23:16)
[2021-12-25] MEDS: LORazepam 2 MG/ML VIAL 0.5 MG IVP (23:16)
[2021-12-25] MEDS: Insulin Glargine 300 UNITS/3 ML PEN 10 UNITS SC (23:17)
[2021-12-25] MEDS: Levalbuterol HFA 15 GM INH 2 PUFF IH (23:18)
[2021-12-26] VITALS (103 sets, daily range): BP systolic 86–156; BP diastolic 62–107; PULSE 37–132; RESP 12–37; TEMP 35.9–37.3; O2SAT 86–99
[2021-12-26] MEDS: DOXYCYCLINE 100 MG in Normal Saline 100 ML IVPB ×2 (00:56→14:04)
[2021-12-26] MEDS: Metoprolol 25 MG TAB PO ×3 (03:20→15:25)
[2021-12-26] MEDS: Amiodarone in Dextrose 360 MG/200 ML BAG 33.333 MG IV ×2 (03:21→09:50)
[2021-12-26] MEDS: Normal Saline Flush 10 ML SYR IVP ×3 (05:34→22:17)
[2021-12-26 06:18] LABS: Abs Immature Grans 0.19 10^3/uL (0.0-0.06); Absolute Basophil Count 0.02 10^3/uL (0.0-0.2); Absolute Lymphocyte Count 0.85 10^3/uL (1.2-3.4); Absolute Neutrophil Count 18.75 10^3/uL (1.2-6.7); Basophils % 0.1; HCT 41.2 % (36.0-46.0); HGB 13.8 g/dL (11.2-15.7); Immature Grans % 0.9; MCH 31.3 pg (27.0-33.0); MCHC 33.5 % (32.0-36.0); MCV 93 fL (80-95); Monocytes % 6.6; Neutrophils % 88.4; Platelet Count 390 10^3/uL (130-400); RBC 4.41 10^6/uL (3.93-5.22); RDW 13.3 % (11.7-14.6); RDW-SD 45.5 fL; WBC 21.21 10^3/uL (4.4-10.8)
[2021-12-26 06:57] LABS: Anion Gap 10.4 mmol/L (3-11); BUN 66 mg/dL (7-18); C-Reactive Protein 0.15 mg/dL (0.0-0.3); CO2 24.6 mmol/L (21.0-32.0); CREATININE 1.7 mg/dL (0.55-1.02); Calcium 8.6 mg/dL (8.5-10.1); Chloride 102 mmol/L (98-107); Estimated GFR 32.26 (mL/min/1.73m2); Glucose 99 mg/dL (74-106); Magnesium 1.8 mg/dL (1.8-2.4); Potassium 4.1 mmol/L (3.5-5.1); Sodium 137 mmol/L (136-145)
[2021-12-26 07:13] LABS: Procalcitonin 0.1 ng/mL
[2021-12-26 07:52] LABS: INR 1.3 (0.9-1.1)
[2021-12-26] MEDS: Tiotropium Bromide-Respimat 10 PUFF INH 2 PUFF IH (07:58)
[2021-12-26] MEDS: Cholecalciferol (Vitamin D3) 1,000 UNIT TAB 2000 UNITS PO (08:04)
[2021-12-26] MEDS: Escitalopram 20 MG TAB PO (08:04)
[2021-12-26] MEDS: Amiodarone 200 MG TAB 400 MG PO ×2 (08:04→22:16)
[2021-12-26] MEDS: Zinc Sulfate 220 MG TAB PO (08:05)
[2021-12-26] MEDS: Benzonatate 200 MG CAP PO ×3 (08:05→22:17)
[2021-12-26] MEDS: Famotidine 20 MG TAB PO ×2 (08:05→22:16)
[2021-12-26] MEDS: Aspirin E.C. 81 MG TABEC PO (08:05)
[2021-12-26] MEDS: Ascorbic Acid 500 MG TAB 1000 MG PO ×2 (08:05→22:16)
[2021-12-26] MEDS: guaiFENesin 600 MG TABCR PO ×2 (08:05→22:17)
[2021-12-26] MEDS: Apixaban 5 MG TAB PO ×2 (08:05→22:16)
[2021-12-26] MEDS: Dexamethasone 10 MG/ML VIAL 6 MG IVP (08:06)
[2021-12-26 08:13] LABS: D-Dimer 536 ng/mlFEU (<500)
[2021-12-26] MEDS: Insulin Aspart 300 UNITS/3 ML PEN 15 UNITS SC ×3 (08:14→18:39)
[2021-12-26] MEDS: Insulin Glargine 300 UNITS/3 ML PEN 20 UNITS SC (08:18)
[2021-12-26] MEDS: Nystatin POWDER 60 GM JAR TP ×2 (08:52→22:00)
[2021-12-26] MEDS: REMDESIVIR 100 MG in Normal Saline 250 ML 250 MG IVPB (09:48)
--- NOTE | 2021-12-26 10:30 | PT.INIE ---
PT Notes Visit Reasons: Covid Pneumonia, COPD Exacerbation with Hypoxemia Inpatient Physical Therapy Initial Evaluation Date: 12/26/21 Referring Doctor: Dr Brewer PT Orders: Limited ability to ambulate Precautions: Standard, COVID Patient Profile/Admitting Diagnosis: Shira is a 71 year old female admitted to [facility] on 12/16/21 for Covid pneumonia, COPD exacerbation with hypoxemia. She participated in 4 PT sessions, initially improving in independence and safety. Unfortunately, she demonstrated elevated HR during PT session on 12/24/21. Medical work up identified SVT, and patient was transferred to ICU. Patient discharged from PT due to change in medical status. New orders received today for evaluation and treatment. Social History/Home Situation:Shira resides alone in [place], [place] with her two dogs; a boxer and a chihuahua. She has a daughter, Effie who resides in [place] and a Grandson, Camilo who resides in [place] as well as a healthy support network of friends per her report. 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 Shira is independent with all ADLs in the community at baseline. She reports use of a cane for ambulation. She has a ramp to enter her home, once inside all one level. Equipment Owned/DME: Cane Subjective: Shira states that she is extremely tired. Objective: Observation: Sitting at EOB at initiation of session. Multiple lines. Mental Status: Flat affect. A&Ox3. Vitals: Monitored on pulse oximetry and telemetry throughout. Begins with HR in 90s, SaO2 as high as 100%. With ambulation, HR increases to 110, SaO2 to 86%, recovering with pursed lip breathing. ROM: Right Upper Extremity: Shoulder flexion to 150*. Elbow and wrist motion WNL. Left Upper Extremity: Shoulder flexion to 150*. Elbow and wrist motion WNL. Right Lower Extremity: Demonstrates WFL AROM of R LE with exception of limited ankle DF Left Lower Extremity: Demonstrates WFL AROM of L LE Strength: Right Upper Extremity: Demonstrates grossly 4/5 R UE strength upon resistance. Left Upper Extremity: Demonstrates grossly 4/5 L UE strength upon resistance Right Lower Extremity: Hip flexion 4/5, knee extension/flexion 5/5, DF 3/5 Left Lower Extremity: Hip flexion 4/5, knee extension/flexion 5/5, DF 4/5 BED MOBILITY/TRANSFERS? Rolling L/R: Independent, according to patient? Sit-stand: supervision ? Stand-sit: supervision ? Bed-Chair: Supervision ?with cane? Chair-bed: Supervision with cane ? GAIT? Assistive Device: SPC? Weight bearing: Full Assist: Supervision ? Distance:? 6 feet, with oxygen desaturation to 86%? Deviation: decreased quin widened base of support? Balance: Static Sitting: Normal Dynamic Sitting: Normal Static Standing: Good Dynamic Standing: Fair Treatment: Initial Evaluation (47991) Therapeutic Exercises ([id number]): seated march, 20 seconds sit-stand x 3 Patient transfers to [facility], and falls asleep while toileting. Requires rousing for transfer back to bed. Assessment: Patient is a 71 year old female referred to physical therapy services with the diagnosis of Covid pneumonia, COPD exacerbation with hypoxemia, recently transfered to ICU due to SVT. PT is limited today due to extreme fatigue and oxygen desaturation with even minimal mobility. She had been ambulating up to 50' and demonstrating independence with bed mobility and transfers prior to transfer to ICU. She requires skilled PT intervention to maximize mobility and safety to allow for safe transition back to the community once medically stable. Goals: Goals X1 week 1. Supine-Sit Independent 2. Sit-Supine Independent 3. Sit-Stand Independent 4. Stand-Sit Independent 5. Bed-Chair Independent 6. Chair-Bed Independent 7. Gait 50 ftx2 with use of SPC with reduced dyspnea Plan of Care/Treatment Plan: 1x/day, 7 days/week x 1 week. Plan of care has been reviewed with the [employer]PERATOR providing the service under Physical Therapy direction. Initiate Physical Therapy intervention for strengthening, bed mobility, transfers, gait, stairs, balance training, use of assistive device. DISCHARGE RECOMMENDATIONS: Home with services TREATMENT CODE/TIME: 58416 (10:15 - 10:35) Josefa Clay, PT, DPT [facility]
--- NOTE | 2021-12-26 10:53 | HPE_ITS ---
Date of service: 12/26/21 Time of Service: 10:54 [facility] All Active Problems (Updated 12/25/21 @ 17:35 by Sinai Brewer MD) Atrial flutter with rapid ventricular response (Acute) SVT (supraventricular tachycardia) (Acute) Discharge planning issues (Acute) Pneumonia (Acute) COVID-19 (Acute) Acute respiratory distress (Acute) COPD with acute exacerbation (Acute) Tobacco abuse (Chronic) Depression (Chronic) Hypertension (Chronic) DVT prophylaxis (Acute) Dental abscess (Acute) COPD (chronic obstructive pulmonary disease) (Chronic) Respiratory failure with hypoxia (Acute) Personal history of nicotine dependence (Acute) Traumatic injury of left lower extremity (Acute) Rhabdomyolysis (Acute) Right ankle injury (Acute) Anemia (Chronic) Medical History CKD (chronic kidney disease) stage 3, GFR 30-59 ml/min Pt. denies Diabetes mellitus Diabetes mellitus 10/21/21 [facility] visit not well controlled, A1C 8.2 Discharge planning issues On supplemental oxygen therapy on O2 of night. Is able to lay flat Surgical History Hx of hernia repair Social History Smoking/Tobacco Use Status: Former Tobacco Use Quit Date: 03/23/18 Smoking risk assessment performed?: Yes Alcohol Intake: current Alcohol Intake frequency: holidays/special occasions only Drug use: Never Substance use type: does not use Do you feel safe at home: Yes Do you feel safe in your relationship?: Yes Meds Allergies and Home Medications Allergies Allergy/AdvReac Type Severity Reaction Status Date / Time codeine Allergy Mild Verified 12/16/21 20:08 fluticasone Allergy Mild Verified 11/11/21 13:39 [From Advair Diskus] salmeterol Allergy Mild Verified 11/11/21 13:39 [From Advair Diskus] Sulfa (Sulfonamide Allergy Mild Unknown Verified 12/16/21 20:08 Antibiotics) Home Medications Medication Instructions Recorded Confirmed Type albuterol sulfate 90 mcg/actuation 2 puff inhalation Q6H PRN PRN 11/25/17 12/16/21 History aerosol inhaler (ProAir HFA) aspirin 81 mg tablet,delayed 81 mg PO DAILY 11/25/17 12/16/21 History release (Aspir-) cholecalciferol (vitamin D3) 50 2,000 unit PO DAILY 11/25/17 12/16/21 History mcg (2,000 unit) capsule (Vitamin D3) cinnamon bark 500 mg capsule 1,000 mg PO DAILY 11/25/17 12/16/21 History (Cinnamon) cyclobenzaprine 10 mg tablet 10 mg PO TID PRN PRN 11/25/17 12/16/21 History escitalopram oxalate 20 mg tablet 20 mg PO DAILY 11/25/17 12/16/21 History (Lexapro) glipizide 5 mg tablet, extended 5 mg PO BID 11/25/17 12/16/21 History release 24 hr (Glucotrol XL) hydrochlorothiazide 50 mg tablet 12.5 mg PO DAILY 11/25/17 12/16/21 History lisinopril 10 mg tablet 10 mg PO DAILY 11/25/17 12/16/21 History omega-3 fatty acids 1,000 mg 1,000 mg PO DAILY 11/25/17 12/16/21 History capsule rosuvastatin 10 mg tablet (Crestor) 10 mg PO DAILY 11/25/17 12/16/21 History nebulizers #1 ea 11/30/17 11/11/21 Rx fluticasone fur. 100 mcg-umeclid 1 inh inhalation DAILY 09/30/20 12/16/21 History 62.5 mcg-vilant 25 mcg inhalat.powder (Trelegy Ellipta) Oxygen #1 ea 10/25/20 11/11/21 History gabapentin 100 mg capsule 1 cap PO HS leg cramps 10/29/21 12/16/21 History nicotine 10 mg inhalation 1 inh inhalation 4-6XD PRN 11/11/21 12/16/21 History cartridge (Nicotrol) Results Labs Result diagrams: 12/26/21 05:40 12/26/21 05:40 Labs: Laboratory Results - last 24 hr 12/25/21 12/25/21 12/25/21 10:15 10:15 20:38 WBC 17.20 H RBC 4.45 Hgb 13.7 Hct 42.4 MCV 95 MCH 30.8 MCHC 32.3 RDW 13.3 Plt Count 409 H MPV 9.9 Immature Gran % 0.9 Neutrophils % 84.5 Lymphocytes % 7.1 Monocytes % 7.4 Eosinophils % 0.0 Basophils % 0.1 Nucleated RBC % 0.0 Absolute Neutrophils 14.53 H Absolute Lymphocytes 1.22 Absolute Monocytes 1.27 H Absolute Eosinophils 0.00 Absolute Basophils 0.02 PT 11.2 H INR 1.1 APTT 22.6 D-Dimer 577 H Sodium Potassium Chloride Carbon Dioxide Anion Gap BUN Creatinine Est GFR (CKD-EPI 2020) Glucose 252 H Calcium Magnesium C-Reactive Protein Procalcitonin 12/26/21 12/26/21 12/26/21 05:40 05:40 05:40 WBC 21.21 H RBC 4.41 Hgb 13.8 Hct 41.2 MCV 93 MCH 31.3 MCHC 33.5 RDW 13.3 Plt Count 390 MPV 10.0 Immature Gran % 0.9 Neutrophils % 88.4 Lymphocytes % 4.0 Monocytes % 6.6 Eosinophils % 0.0 Basophils % 0.1 Nucleated RBC % 0.0 Absolute Neutrophils 18.75 H Absolute Lymphocytes 0.85 L Absolute Monocytes 1.40 H Absolute Eosinophils 0.00 Absolute Basophils 0.02 PT INR APTT D-Dimer Sodium 137 Potassium 4.1 Chloride 102 Carbon Dioxide 24.6 Anion Gap 10.4 BUN 66 H Creatinine 1.7 H Est GFR (CKD-EPI 2020) 32.26 Glucose 99 Calcium 8.6 Magnesium 1.8 C-Reactive Protein 0.15 Procalcitonin 0.1 12/26/21 07:30 WBC RBC Hgb Hct MCV MCH MCHC RDW Plt Count MPV Immature Gran % Neutrophils % Lymphocytes % Monocytes % Eosinophils % Basophils % Nucleated RBC % Absolute Neutrophils Absolute Lymphocytes Absolute Monocytes Absolute Eosinophils Absolute Basophils PT 13.0 H INR 1.3 H APTT D-Dimer 536 H Sodium Potassium Chloride Carbon Dioxide Anion Gap BUN Creatinine Est GFR (CKD-EPI 2020) Glucose Calcium Magnesium C-Reactive Protein Procalcitonin Last Vital Signs Temp 37.3 C 12/26/21 08:00 Pulse 132 H 12/26/21 10:01 Resp 24 12/26/21 10:20 BP 107/89 12/26/21 10:01 Pulse Ox 98 12/26/21 10:42 PAWSS Have you Been Recently Intoxicated or Drunk Within the Last 30 days?: No Have you Ever Experienced Previous Episodes of Alcohol Withdrawal?: No Have you ever Experienced Withdrawal Seizures?: No Have you ever Experienced Delirium Tremens(DT)s?: No Have you ever undergone Alcohol Rehabilitation Treatment (i.e, inpt ot outpatient treatment programs)?: No Have you ever Experienced Blackouts?: No Have you ever Combined Alcohol with other Downers within the last 90 days?: No Have you ever Combined Alcohol with any other Substance of Abuse during the last 90 days?: No Positive Blood Alcohol level on Presentation? [PCS.BAL]: No Evidence of Increased Autonomic Activity (i.e. HR>120, tremor, sweating, agitation, nausea)?: No Result: 0
[2021-12-26] MEDS: Insulin Aspart 300 UNITS/3 ML PEN SC ×3 (12:16→22:40)
--- NOTE | 2021-12-26 15:52 | CMPROGNOTE_ITS ---
- If Service Date Differs Date of service: 12/26/21 Time of Service: 15:52 Care Management Progress Note S/O: Shira continues to be closely monitored at ICU level of care. She is at her baseline O2, 2L. Per report, she is improving, and the IV amiodarone will likely be changed to PO. PT met with her today, and recommended PT. CM will continue to follow. A: Shira is a 71 year old female admitted to [facility] on 12/16/21 for Covid pneumonia, COPD exacerbation with hypoxemia. P: Anticipate Shira will return home when ready per MD. She will have new orders for VNA supports at home, and transport via private vehicle with family. CM will continue to follow and support discharge planning considerations.
[2021-12-26] MEDS: cefTRIAXone 1 GM/50 ML BAG IVPB (17:18)
--- NOTE | 2021-12-26 20:41 | W.PM.PROGNOT ---
Date of Service Date of service: 12/26/21 Time of Service: 10:54 Assessment and Plan Assessment and plan (1) Atrial flutter with rapid ventricular response: Status: Acute Assessment and plan: Patient will finish out her 24-hour overlap of IV amiodarone later today. We will keep her on a loading dose of amiodarone 400 mg p.o. twice daily for 14 days then drop it to 400 mg once a day for 14 days then go down to 200 mg daily. We will titrate her metoprolol dose to maintain a resting heart rate below 90 and keep her heart rate below 120 with activity. Patient has been started on apixaban. (2) COVID-19: Status: Acute Assessment and plan: Improving. Patient is now back to her baseline home oxygen use of 2 L/min per nasal cannula. Patient refused to wear CPAP as she feels like she is smothering. She is encouraged to ambulate and move around to prevent atelectasis. Today we will complete her 10-day course of remdesivir and Decadron. I think once she is off the amiodarone drip and her rate and rhythm are stable on oral amiodarone and metoprolol she can be discharged home. (3) Pneumonia: Status: Acute Assessment and plan: Continue ceftriaxone + doxycycline. Mucolytics. Patient has completed 10-day course of antibiotics I think these can be discontinued. I will recheck her inflammatory markers in the morning. (4) COPD with acute exacerbation: Status: Acute Assessment and plan: Continue CPAP at night. Continue bronchodilators. (5) Respiratory failure with hypoxia: Status: Acute Assessment and plan: As above Qualifiers: Chronicity: chronic Qualified Code(s): J96.11 - Chronic respiratory failure with hypoxia (6) Diabetes mellitus: Assessment and plan: Continue current regimen. Qualifiers: Diabetes mellitus type: type 2 Diabetes mellitus termination clerk insulin use: without termination clerk use Diabetes mellitus complication status: without complication Qualified Code(s): E11.9 - Type 2 diabetes mellitus without complications (7) Hypertension: Status: Chronic Assessment and plan: Continue to hold lisinopril/HCTZ to allow adequate blood pressure for titration of her metoprolol Qualifiers: Hypertension type: unspecified Qualified Code(s): I10 - Essential (primary) hypertension (8) DVT prophylaxis: Status: Acute Assessment and plan: Enoxaparin discontinued in favor of apixaban (9) Discharge planning issues: Assessment and plan: Transfer out of ICU. Discharge home in the next 24 to 48 hours. Subjective Subjective Interval history since last seen: Patient denies any chest pain pressure palpitations denies any dyspnea more than her usual. No cough or sputum production. Exam Narrative Exam Narrative: By is alert and oriented person place time circumstance. She still requiring supplemental oxygen but she is back to her baseline level 2 L/min per nasal cannula. Lungs still with some end expiratory wheezes no rhonchi or rales Heart is irregularly irregular but controlled rate Abdomen is obese soft and nontender Lower extremities no cyanosis or edema Objective Last Vital Signs Temp 35.9 C L 12/26/21 15:15 Pulse 56 L 12/26/21 17:01 Resp 27 H 12/26/21 17:40 BP 127/73 12/26/21 17:01 Pulse Ox 94 12/26/21 17:40 Laboratory Results - last 24 hr 12/25/21 12/26/21 12/26/21 20:38 05:40 05:40 WBC RBC Hgb Hct MCV MCH MCHC RDW Plt Count MPV Immature Gran % Neutrophils % Lymphocytes % Monocytes % Eosinophils % Basophils % Nucleated RBC % Absolute Neutrophils Absolute Lymphocytes Absolute Monocytes Absolute Eosinophils Absolute Basophils PT INR D-Dimer Sodium 137 Potassium 4.1 Chloride 102 Carbon Dioxide 24.6 Anion Gap 10.4 BUN 66 H Creatinine 1.7 H Est GFR (CKD-EPI 2020) 32.26 Glucose 252 H 99 Calcium 8.6 Magnesium 1.8 C-Reactive Protein 0.15 Procalcitonin 0.1 12/26/21 12/26/21 05:40 07:30 WBC 21.21 H RBC 4.41 Hgb 13.8 Hct 41.2 MCV 93 MCH 31.3 MCHC 33.5 RDW 13.3 Plt Count 390 MPV 10.0 Immature Gran % 0.9 Neutrophils % 88.4 Lymphocytes % 4.0 Monocytes % 6.6 Eosinophils % 0.0 Basophils % 0.1 Nucleated RBC % 0.0 Absolute Neutrophils 18.75 H Absolute Lymphocytes 0.85 L Absolute Monocytes 1.40 H Absolute Eosinophils 0.00 Absolute Basophils 0.02 PT 13.0 H INR 1.3 H D-Dimer 536 H Sodium Potassium Chloride Carbon Dioxide Anion Gap BUN Creatinine Est GFR (CKD-EPI 2020) Glucose Calcium Magnesium C-Reactive Protein Procalcitonin PAWSS Have you Been Recently Intoxicated or Drunk Within the Last 30 days?: No Have you Ever Experienced Previous Episodes of Alcohol Withdrawal?: No Have you ever Experienced Withdrawal Seizures?: No Have you ever Experienced Delirium Tremens(DT)s?: No Have you ever undergone Alcohol Rehabilitation Treatment (i.e, inpt ot outpatient treatment programs)?: No Have you ever Experienced Blackouts?: No Have you ever Combined Alcohol with other Downers within the last 90 days?: No Have you ever Combined Alcohol with any other Substance of Abuse during the last 90 days?: No Positive Blood Alcohol level on Presentation? [PCS.BAL]: No Evidence of Increased Autonomic Activity (i.e. HR>120, tremor, sweating, agitation, nausea)?: No Result: 0
[2021-12-26] MEDS: Melatonin 3 MG TAB PO (22:16)
[2021-12-26] MEDS: Gabapentin 100 MG CAP PO (22:16)
[2021-12-26] MEDS: Rosuvastatin 10 MG TAB PO (22:17)
[2021-12-26] MEDS: Insulin Glargine 300 UNITS/3 ML PEN 10 UNITS SC (23:12)
[2021-12-27] VITALS (68 sets, daily range): BP systolic 116–154; BP diastolic 57–106; PULSE 50–80; RESP 4–32; TEMP 35.9–36.2; O2SAT 85–100
[2021-12-27] MEDS: DOXYCYCLINE 100 MG in Normal Saline 100 ML IVPB ×2 (02:38→14:14)
[2021-12-27] MEDS: Albuterol/Ipratropium 3 ML UPD VIAL UPD (05:30)
[2021-12-27] MEDS: Tiotropium Bromide-Respimat 10 PUFF INH 2 PUFF IH (07:49)
[2021-12-27] MEDS: Zinc Sulfate 220 MG TAB PO (08:44)
[2021-12-27] MEDS: Benzonatate 200 MG CAP PO ×3 (08:44→20:04)
[2021-12-27] MEDS: Cholecalciferol (Vitamin D3) 1,000 UNIT TAB 2000 UNITS PO (08:44)
[2021-12-27] MEDS: Aspirin E.C. 81 MG TABEC PO (08:45)
[2021-12-27] MEDS: guaiFENesin 600 MG TABCR PO ×2 (08:45→20:03)
[2021-12-27] MEDS: Famotidine 20 MG TAB PO ×2 (08:45→20:03)
[2021-12-27] MEDS: Amiodarone 200 MG TAB 400 MG PO ×2 (08:45→20:03)
[2021-12-27] MEDS: Ascorbic Acid 500 MG TAB 1000 MG PO ×2 (08:45→20:02)
[2021-12-27] MEDS: Dexamethasone 10 MG/ML VIAL 6 MG IVP (08:45)
[2021-12-27] MEDS: Escitalopram 20 MG TAB PO (08:46)
[2021-12-27] MEDS: Apixaban 5 MG TAB PO ×2 (08:46→20:03)
[2021-12-27] MEDS: Metoprolol CR 50 MG TABCR PO (08:46)
[2021-12-27] MEDS: Insulin Glargine 300 UNITS/3 ML PEN 20 UNITS SC (09:40)
[2021-12-27] MEDS: Insulin Aspart 300 UNITS/3 ML PEN 15 UNITS SC ×3 (09:40→17:20)
[2021-12-27] MEDS: Normal Saline Flush 10 ML SYR IVP ×3 (09:40→20:07)
[2021-12-27] MEDS: Nystatin POWDER 60 GM JAR TP ×3 (09:41→22:25)
[2021-12-27 10:06] LABS: Abs Immature Grans 0.15 10^3/uL (0.0-0.06); Absolute Monocyte Count 0.83 10^3/uL (0.1-0.8); Basophils % 0.1; HCT 40.3 % (36.0-46.0); HGB 13.4 g/dL (11.2-15.7); Immature Grans % 0.9; Lymphocytes % 2.3; MCH 31.3 pg (27.0-33.0); MCHC 33.3 % (32.0-36.0); MCV 94 fL (80-95); MPV 10.3 fL (8.0-11.0); Monocytes % 5.1; Neutrophils % 91.6; Platelet Count 249 10^3/uL (130-400); RBC 4.28 10^6/uL (3.93-5.22); RDW 13.2 % (11.7-14.6); RDW-SD 45.6 fL; WBC 16.22 10^3/uL (4.4-10.8)
[2021-12-27 10:07] LABS: Absolute Basophil Count 0.02 10^3/uL (0.0-0.2); Absolute Lymphocyte Count 0.37 10^3/uL (1.2-3.4); Absolute Neutrophil Count 14.86 10^3/uL (1.2-6.7)
[2021-12-27 10:22] LABS: ALT 72 U/L (14-59); AST 27 U/L (15-37); Albumin 2.6 g/dL (3.4-5.0); Alkaline Phosphatase 55 U/L (46-116); Anion Gap 8.4 mmol/L (3-11); BUN 60 mg/dL (7-18); Bilirubin, Total 0.3 mg/dL (0.2-1.0); CO2 25.6 mmol/L (21.0-32.0); CREATININE 1.6 mg/dL (0.55-1.02); Calcium 8.7 mg/dL (8.5-10.1); Chloride 104 mmol/L (98-107); Glucose 106 mg/dL (74-106); Potassium 3.8 mmol/L (3.5-5.1); Sodium 138 mmol/L (136-145); Total Protein 5.8 g/dL (6.4-8.2)
--- NOTE | 2021-12-27 13:38 | PTTR_ITS ---
Date of service: 12/27/21 Time of Service: 10:30 PT Notes Visit Reasons: Covid Pneumonia, COPD Exacerbation with Hypoxemia Inpatient Physical Therapy Treatment Note [facility] Date: 12/27/2021 PRECAUTIONS: COVID-19, activity as tolerated SUBJECTIVE: Shira is pleasant and agreeable to participating in PT. She states that she'd rather get into bed and rest than walk, but is willing to try. She reports that she is not quite at her baseline. She feels weaker than normal, but reportedly gets SOB with exertion at baseline. OBJECTIVE: PAIN: No c/o pain BED MOBILITY/TRANSFERS Sit-supine: I with HOB flat Sit-stand: I Stand-sit: I GAIT Assistive Device: SPC Weight bearing: Full Assist: S Distance: 50' + 20' + 20' Deviation: LOB x2 with self-recovery ASSESSMENT: Patient tolerated session well, although with complaint of inc reased fatigue and SOB with gait training. She demonstrates independence with bed mobility and transfers, although demonstrates limited activity tolerance. PLAN: Continue with general conditioning for improved activity tolerance. TREATMENT CODE/TIME: 26 minutes; 66972 x2 (10:30)
[2021-12-27] MEDS: Insulin Aspart 300 UNITS/3 ML PEN SC ×3 (13:50→22:22)
[2021-12-27] MEDS: Normal Saline 500 ML IV (14:15)
--- NOTE | 2021-12-27 15:29 | W.PM.PROGNOT ---
Date of Service Date of service: 12/27/21 Time of Service: 15:29 Assessment and Plan Assessment and plan (1) Atrial flutter with rapid ventricular response: Status: Acute Assessment and plan: Rhythm remains sinus rhythm now off amiodarone drip. Continue loading dose amiodarone 400 mg twice daily x14 days total then 400 mg daily for 14 days and 2 mg daily thereafter. (2) COVID-19: Status: Acute Assessment and plan: Improving. Lung sounds are clear. Oxygen is now at her baseline requirement 2 L/min per nasal cannula. oxygen saturation 98%. (3) Pneumonia: Status: Acute Assessment and plan: dc Rocephin and doxycycline after todays dose. will plan for dc home in the a.m. (4) COPD with acute exacerbation: Status: Acute Assessment and plan: patient refuses use of CPAP Continue bronchodilators. (5) Respiratory failure with hypoxia: Status: Acute Assessment and plan: As above Qualifiers: Chronicity: chronic Qualified Code(s): J96.11 - Chronic respiratory failure with hypoxia (6) Diabetes mellitus: Assessment and plan: Continue current regimen. blood sugars running 82 to 185 Qualifiers: Diabetes mellitus type: type 2 Diabetes mellitus intermediate accountant insulin use: without intermediate accountant use Diabetes mellitus complication status: without complication Qualified Code(s): E11.9 - Type 2 diabetes mellitus without complications (7) Hypertension: Status: Chronic Assessment and plan: Continue to hold lisinopril/HCTZ to allow adequate blood pressure for titration of her metoprolol Qualifiers: Hypertension type: unspecified Qualified Code(s): I10 - Essential (primary) hypertension (8) DVT prophylaxis: Status: Acute Assessment and plan: Enoxaparin discontinued in favor of apixaban (9) Discharge planning issues: Assessment and plan: Transfer out of ICU. Discharge home in the next 24 to 48 hours. Subjective Subjective Interval history since last seen: Patient has no acute complaints denies any chest pain. No dyspnea at rest and her level of dyspnea with activity is no more than her usual baseline. She is down to 2 L/min per nasal cannula which is her home level of oxygen requirements. She is not producing any purulent sputum. Rhythm remained sinus rhythm with a right bundle branch block. Exam Narrative Exam Narrative: Morbidly obese white female lying in bed on her left side no acute distress alert and oriented per his place time circumstance Lungs clear to auscultation Heart is regular distant heart tones no appreciable murmur Abdomen obese soft and nontender Objective Last Vital Signs Temp 35.9 C L 12/27/21 08:30 Pulse 70 12/27/21 12:14 Resp 27 H 12/27/21 13:50 BP 139/98 H 12/27/21 12:14 Pulse Ox 98 12/27/21 12:10 Laboratory Results - last 24 hr 12/27/21 12/27/21 09:14 09:14 WBC 16.22 H RBC 4.28 Hgb 13.4 Hct 40.3 MCV 94 MCH 31.3 MCHC 33.3 RDW 13.2 Plt Count 249 MPV 10.3 Immature Gran % 0.9 Neutrophils % 91.6 Lymphocytes % 2.3 Monocytes % 5.1 Eosinophils % 0.0 Basophils % 0.1 Nucleated RBC % 0.0 Absolute Neutrophils 14.86 H Absolute Lymphocytes 0.37 L Absolute Monocytes 0.83 H Absolute Eosinophils 0.00 Absolute Basophils 0.02 Sodium 138 Potassium 3.8 Chloride 104 Carbon Dioxide 25.6 Anion Gap 8.4 BUN 60 H Creatinine 1.6 H Est GFR (CKD-EPI 2020) 34.70 Glucose 106 Calcium 8.7 Total Bilirubin 0.3 AST 27 ALT 72 H Alkaline Phosphatase 55 Total Protein 5.8 L Albumin 2.6 L PAWSS Have you Been Recently Intoxicated or Drunk Within the Last 30 days?: No Have you Ever Experienced Previous Episodes of Alcohol Withdrawal?: No Have you ever Experienced Withdrawal Seizures?: No Have you ever Experienced Delirium Tremens(DT)s?: No Have you ever undergone Alcohol Rehabilitation Treatment (i.e, inpt ot outpatient treatment programs)?: No Have you ever Experienced Blackouts?: No Have you ever Combined Alcohol with other Downers within the last 90 days?: No Have you ever Combined Alcohol with any other Substance of Abuse during the last 90 days?: No Positive Blood Alcohol level on Presentation? [PCS.BAL]: No Evidence of Increased Autonomic Activity (i.e. HR>120, tremor, sweating, agitation, nausea)?: No Result: 0
--- NOTE | 2021-12-27 16:03 | PDOC.CMPRO ---
- If Service Date Differs Date of service: 12/27/21 Time of Service: 16:03 Care Management Progress Note S/O: Shira remains in the ICU, although she is med/surge status. She was removed from covid precautions late this afternoon, as it has been more than 10 days since her positive test. PT is recommending PT upon discharge. Per MD, she will likely be ready for discharge tomorrow. CM will continue to follow. A: Shira is a 71 year old female admitted to [facility] on 12/16/21 for Covid pneumonia, COPD exacerbation with hypoxemia. P: Anticipate Shira will return home when ready per MD. She may have new orders for VNA supports at home, and transport via private vehicle with family. CM will continue to follow and support discharge planning considerations.
[2021-12-27] MEDS: Docusate Sodium 100 MG CAP PO (16:16)
[2021-12-27] MEDS: Polyethylene Glycol 3350 17 GM PACKET PO (16:16)
[2021-12-27] MEDS: cefTRIAXone 1 GM/50 ML BAG IVPB (17:23)
[2021-12-27] MEDS: Rosuvastatin 10 MG TAB PO (20:03)
[2021-12-27] MEDS: Insulin Glargine 300 UNITS/3 ML PEN 10 UNITS SC (22:21)
[2021-12-27] MEDS: Melatonin 3 MG TAB PO (22:23)
[2021-12-27] MEDS: Gabapentin 100 MG CAP PO (22:23)
[2021-12-28] VITALS (14 sets, daily range): BP systolic 124–138; BP diastolic 86; PULSE 58–68; RESP 16–36; TEMP 36.1–36.4; O2SAT 94–100
[2021-12-28 06:21] LABS: Abs Immature Grans 0.13 10^3/uL (0.0-0.06); Absolute Monocyte Count 0.61 10^3/uL (0.1-0.8); Absolute Neutrophil Count 13.47 10^3/uL (1.2-6.7); Basophils % 0.1; HCT 39.2 % (36.0-46.0); HGB 13.2 g/dL (11.2-15.7); Immature Grans % 0.9; Lymphocytes % 2.1; MCH 31.4 pg (27.0-33.0); MCHC 33.7 % (32.0-36.0); MCV 93 fL (80-95); MPV 10.3 fL (8.0-11.0); Monocytes % 4.2; Neutrophils % 92.7; Platelet Count 251 10^3/uL (130-400); RBC 4.21 10^6/uL (3.93-5.22); RDW 13.3 % (11.7-14.6); RDW-SD 44.8 fL; WBC 14.53 10^3/uL (4.4-10.8)
[2021-12-28 06:22] LABS: Absolute Basophil Count 0.01 10^3/uL (0.0-0.2); Absolute Lymphocyte Count 0.31 10^3/uL (1.2-3.4)
[2021-12-28 06:43] LABS: ALT 60 U/L (14-59); AST 22 U/L (15-37); Albumin 2.5 g/dL (3.4-5.0); Alkaline Phosphatase 57 U/L (46-116); Anion Gap 4.8 mmol/L (3-11); BUN 56 mg/dL (7-18); Bilirubin, Total 0.4 mg/dL (0.2-1.0); C-Reactive Protein 0.12 mg/dL (0.0-0.3); CO2 28.2 mmol/L (21.0-32.0); CREATININE 1.5 mg/dL (0.55-1.02); Calcium 8.6 mg/dL (8.5-10.1); Chloride 105 mmol/L (98-107); Estimated GFR 37.49 (mL/min/1.73m2); Glucose 159 mg/dL (74-106); Potassium 4.1 mmol/L (3.5-5.1); Sodium 138 mmol/L (136-145); Total Protein 5.6 g/dL (6.4-8.2)
[2021-12-28 07:14] LABS: Ferritin 171 ng/mL (8-252)
[2021-12-28 07:26] LABS: Procalcitonin < 0.1 ng/mL
[2021-12-28] MEDS: Insulin Aspart 300 UNITS/3 ML PEN 15 UNITS SC ×2 (08:28→12:49)
[2021-12-28] MEDS: Insulin Glargine 300 UNITS/3 ML PEN 20 UNITS SC (08:30)
[2021-12-28] MEDS: Cholecalciferol (Vitamin D3) 1,000 UNIT TAB 2000 UNITS PO (08:31)
[2021-12-28] MEDS: guaiFENesin 600 MG TABCR PO (08:32)
[2021-12-28] MEDS: Escitalopram 20 MG TAB PO (08:32)
[2021-12-28] MEDS: Amiodarone 200 MG TAB 400 MG PO (08:32)
[2021-12-28] MEDS: Zinc Sulfate 220 MG TAB PO (08:32)
[2021-12-28] MEDS: Apixaban 5 MG TAB PO (08:32)
[2021-12-28] MEDS: Ascorbic Acid 500 MG TAB 1000 MG PO (08:32)
[2021-12-28] MEDS: Docusate Sodium 100 MG CAP PO (08:32)
[2021-12-28] MEDS: Metoprolol CR 50 MG TABCR PO (08:32)
[2021-12-28] MEDS: Famotidine 20 MG TAB PO (08:32)
[2021-12-28] MEDS: Benzonatate 200 MG CAP PO (08:32)
[2021-12-28] MEDS: Aspirin E.C. 81 MG TABEC PO (08:33)
[2021-12-28] MEDS: Nystatin POWDER 60 GM JAR TP (08:33)
[2021-12-28] MEDS: Polyethylene Glycol 3350 17 GM PACKET PO (08:33)
[2021-12-28] MEDS: Normal Saline Flush 10 ML SYR IVP (08:33)
[2021-12-28] MEDS: Dexamethasone 10 MG/ML VIAL 6 MG IVP (08:34)
[2021-12-28] MEDS: Tiotropium Bromide-Respimat 10 PUFF INH 2 PUFF IH (08:55)
--- NOTE | 2021-12-28 09:57 | PT.INTREAT ---
PT Notes Visit Reasons: Covid Pneumonia, COPD Exacerbation with Hypoxemia Inpatient Physical Therapy Treatment Note [facility] Date: 12/28/21 SUBJECTIVE: Shira states that she is feeling better, although very tired. OBJECTIVE: [] BED MOBILITY/TRANSFERS Supine-sit: I Sit-stand: I Stand-sit:I GAIT Assistive Device: SPC Weight bearing: full Assist: S Distance: 30'x2 Deviation: seated rest. 2L of O2. ASSESSMENT: tolerated session well. Slight SOB noted which she states is normal. She had small LOB when turning corner however able to recover independently. PLAN: d/c home per MD. TREATMENT CODE/TIME: 20 min. [id number]
--- NOTE | 2021-12-28 12:45 | W.PM.DS.N ---
Date of service: 12/28/21 Time of Service: 12:45 DS: Diagnosis Discharge Diagnosis (1) COVID-19: Status: Resolved Asessment and Plan: treated w/ Remdesivir, zinc, vitamin C and vitamin D and decadron. She completed 10 days of therapy. Patient advised to get follow up COVID booster in a month. (2) Pneumonia: Status: Resolved Asessment and Plan: patient completed 11 days of antibiotics including Rocephin, doxycycline and Augmentin. she was not discharged on any antibiotics and her follow up CXR on 12/25 did not show any infiltrates. Follow up procalcitonin on 12/28 was normal at <0.1 (3) Atrial flutter with rapid ventricular response: Status: Acute Asessment and Plan: serial troponin I levels on admission on 12/16 were normal and repeat levels on 12/24 were also normal. Echocardiogram on 12/17 showed normal LV and RV size and function w/ no wall motion abnormalities and normal LVEF of 55% and no significant valve abnormalities. Atrial flutter and fibrillation was treated w/ oral and iv metoprolol and required iv and oral amiodarone and she was anticoagulated w/ apixaban. She was sent home on loading doses of amiodarone which were started while in the hospital. She was sent home on apixaban and Toprol XL. Outpatient follow up w/ cardiology services is recommended and orders were placed for follow up EKG and cardiac event recorder. Patient is advised to get an eye exam and follow up LFT and TFT's in one month and periodically thereafter. (4) COPD with acute exacerbation: Status: Resolved (5) Respiratory failure with hypoxia: Status: Resolved (6) Diabetes mellitus: Asessment and Plan: patient was treated w/ lantus and novolog while hospitalized to control the hyperglycemic response from her steroids. She was not discharged on insulin but is to resume her glipizide. Further management of her DM deferred to her PCP. (7) Hypertension: Status: Chronic Asessment and Plan: her HCTZ and lisinopril were held during her admission d/t her RHONDA w/ creatinine of 2.0. Her creatinine recovered to 1.5 which is her baseline CKD and her BUN came down to 56. HCTZ was discontinued from her home meds. She is to resume her lisinopril at lower dose of 5 mg daily. Discharge Plan Disposition Patient Disposition: HOME W/HOME HEALTH SERVICE Condition: Improving Discharge Details Reason For Visit: Covid Pneumonia, COPD Exacerbation with Hypoxemia Admit Date/Time: 12/16/21 18:58 Admit Provider: Sinai Brewer Attending Provider: Sinai Brewer Primary Care Provider: Liliam Noble Hospital Course Hospital Course: 71-year-old female with a history of oxygen dependent COPD with a 4 to 5-day history of increasing cough and sputum production with no associated fever rigors or chest pain. Comorbidities include CKD, diabetes mellitus, hyperlipidemia. Evaluation in the emergency department revealed she was positive for COVID-19 despite having had prior vaccination. Patient was admitted to the hospital for treatment of COPD exacerbation and COVID-19 as well as possible concomitant community-acquired pneumonia. CT of the chest ruled out an acute pulmonary embolus. After she was admitted to the medical/surgical floor she went into an irregular narrow complex tachycardia that appeared to be atrial fibrillation. She was started on Rocephin and doxycycline for commune acquired pneumonia and started on remdesivir and Decadron for COVID-19. She was placed on bronchodilators and her supplemental oxygen was titrated. Her DM was managed w/ basal/bolus insulin. Her lisinopril and HCTZ were witheld d/t RHONDA (creatinine 2.0) and to allow enough bp to titrate rate controlling medications. CPAP was tried but patient refused d/t discomfort and feeling of being smothered. Pulmonary toiletry was added including Vibra-Pep and incentive spirometry. No blood cultures or sputum cultures were obtained. Urine culture grew mixed gram negative and gram positive wilman 10,000 to 50,000 colonies. Her hospital course was complicated by recurrent narrow complex tachycardia. At the time this occurred on 12/24 she was not on telemetry monitoring but when placed on monitoring she was believed to be in SVT, her metoprolol dose was titrated and she was begun on diltiazem drip. After doses of adenosine failed to convert her it was found that her rhythm was rapid atrial flutter. When her rate could not be controlled w/ diltiazem drip and metoprolol, EP services at [facility], Dr. Laird and amiodarone drip along w/ loading doses of oral amiodarone was recommended. Patient was started on apixaban for stroke prevention. An echocardiogram had been performed early in her hospitalization that showed normal LV size and function w/ LVEF 55% and normal RV size and function w/ no hemodymically significant vavular abnormalities. On 12/25 she was noted to be in atrial fibrillation but w/ improving rate control and by 12/26 she converted to sinus rhythm w/ RBBB. Amiodarone drip was stopped on 12/26. Patient was monitored while she completed her 10 days of her Remdesivir and decadron. She completed a full 11 days of antibiotics. She was discharged on 12/28 as she was at her baseline oxygen requirements of 2 LPM nasal cannula w/ no fevers or purulent sputum production and her follow up CXR from 12/25 having shown no infiltrates. She was discharged home on oral amiodarone at loading dose of 400 mg bid x 10 more days and instructed then to drop down to 400 mg daily x 14 days and then 200 mg daily indefinitely.. She was discharged home on Toprol XL 50 mg daily along w/ anticoagulation of apixaban 5 mg bid. She will be referred to cardiology at [facility] for follow up and scheduled for follow up EKG in one week and follow up cardiac event recorder to assess stability of her heart rhythm. She was instructed to have an eye exam and to get follow up liver function and thyroid function tests as this is needed for monitoring while on amiodarone. P.T. was consulted and worked w/ the patient. She was ambulating independently w/ a walker, although w/ diminished activity tolerance and easy fatiguablity. Home health services will be consulted for home P.T. and nursing and [employer] to coordinate her medical services and to provide ongoing monitoring of her medical conditions, education about her medical conditions and monitoring of her medication tolerance and compliance. Home P.T. to continue to work on her exercise tolerance, and strength. Home Meds and New Rx's Prescriptions: New amiodarone [Pacerone] 200 mg Tablet 400 mg PO BID Qty: 90 0RF Rx Instructions: 400 mg bid x 10 days, 400 mg daily x 14 days then 200 mg daily Eliquis 5 mg Tablet 5 mg PO BID Qty: 60 0RF Spiriva Respimat 2.5 mcg/actuation Mist 2 puff inhalation DAILY Qty: 4 0RF metoprolol succinate 50 mg Tablet Extended Release 24 Hr 50 mg PO DAILY Qty: 30 0RF levalbuterol tartrate 45 mcg/actuation Hfa Aerosol Inhaler 2 puff inhalation Q4H PRN PRNQty: 15 0RF Inhaler, Assist Devices [Pocket Chamber] 1 ea miscellaneous DIRECTED Qty: 0 0RF Continued Nicotrol 10 mg cartridge 1 inh inhalation 4-6XD PRN (DME) Oxygen Tank See Rx Instructions .ROUTE .MEDSUPPLY Qty: 1 Rx Instructions: As directed,2L with physical activity. gabapentin 100 mg capsule 1 cap PO HS omega-3 fatty acids 1,000 mg Capsule 1,000 mg PO DAILY escitalopram oxalate [Lexapro] 20 mg Tablet 20 mg PO DAILY cholecalciferol (vitamin D3) [Vitamin D3] 2,000 unit Capsule 2,000 unit PO DAILY rosuvastatin [Crestor] 10 mg Tablet 10 mg PO DAILY cinnamon bark [Cinnamon] 500 mg Capsule 1,000 mg PO DAILY Rx Instructions: No dose given. albuterol sulfate [ProAir HFA] 90 mcg/actuation Hfa Aerosol Inhaler 2 puff Inhalation Q6H PRN PRN glipizide [Glucotrol XL] 5 mg Tablet Extended Release 24hr 5 mg PO BID cyclobenzaprine 10 mg Tablet 10 mg PO TID PRN PRN aspirin [Aspir-81] 81 mg Tablet,Delayed Release (Dr/Ec) 81 mg PO DAILY (DME) nebulizers mis See Dose Instructions .ROUTE .MEDSUPPLY Qty: 1 0RF Dose Instruction: As directed Rx Instructions: As directed Trelegy Ellipta 100-62.5-25 mcg blister with device 1 inh INHALATION DAILY Changed lisinopril 10 mg Tablet 5 mg PO DAILY Qty: 0 0RF Discontinued hydrochlorothiazide 50 mg Tablet 12.5 mg PO DAILY Rx Instructions: Pt takes half of a 25 mg tab daily. Discharge Instructions Instructions: Metoprolol (By mouth), Amiodarone (By mouth), Apixaban (By mouth), Atrial Flutter (DC), COVID-19 (Coronavirus Disease 2019) (DC) Additional Instructions: You were treated for both COVID 19 infection as well as community aquired pneumonia. You received 11 days of antibiotics, bronchodilators and you received Remdesivir and dexamethasone for the COVID infection. You should get a bivalent booster vaccine in the next month. Your hospital course was complicated by the development of a heart rhythm issue called paroxysmal atrial flutter. Your heart rate and rhythm were controlled with metoprolol ( a beta bernardo to slow the heart rate) and a rhythm controlling medication called amiodarone. Amiodarone is given in a loading dose initially at 400 mg twice a day for 14 days then 400 mg daily for 14 days then reduce to 200 mg once a day indefinitely. You will need to have your thyroid and liver function tests and eye exams performed periodically. You should have your liver function and thyroid function tests done in 4 to 6 weeks and will need to have this monitored every 3 months for first year then every 6 months thereafter. You should have an eye exam performed in the next month then yearly thereafter. You were started on a blood thinner called apixaban (Eliqiuis). This prevents blood clots that may develope from the atrial flutter and these blood clots can lead to strokes. You have been given prescriptions for short term coverage of your new medications for the next week and correction prescriptions were electronically sent to [facility] in [place]. You should have follow up EKG and cardiac event recorder in one week and you should follow up both w/ cardiology here at [facility] as well as with your primary care provider Referrals: Abril Cruz MD [ [facility] STAFF PHYSICIAN] - Yonatan Hoang NP [Emergency Nurse] - Activity:: Activity as Tolerated Equipment/Supplies:: No Equipment Needed Diet:: Carb Counting Discharge Orders Discharge Orders: Discharge Order (Routine); Ordered 12/28/21 Ordered By: Luciano Coleman Other Ambulatory Orders: Cardiac Event Recorder (Routine) Timeframe: 1 Week Facility: [facility] - Location: Respiratory Therapy Ordered By: Luciano Coleman EKG (Routine) Timeframe: 1 Week Facility: [facility] - Location: Respiratory Therapy Ordered By: Luciano Coleman Discharge Data Discharge Date/Time-TO BE ENTERED AT DEPARTURE: 12/28/21 14:45 DS: Summary Time Spent with Patient providing and/or coordinating discharge services: Greater than 30 minutes Specific discharge activities: Interview/exam of patient; review of discharge instructions, completion of prescriptions/discharge instructions; discussion w/ nursing and CM; documentation of hospital visit Status at Discharge Functional status at discharge: uses cane/walker Overall status at discharge: patient is progressing back to baseline Mental Status: mental status grossly normal Speech and Movement: speech and movement normal Mood: congruent mood Affect: normal affect Exam Narrative Exam Narrative: Patient sitting up the bedside working with physical therapy. She is alert and oriented per his place time circumstance in no acute respiratory discomfort. Not short of breath not having any chest pain. Lungs with prolonged expiratory phase no rhonchi some fine end expiratory wheezes are heard no rales Heart is regular no appreciable murmur rub or gallop. Abdomen is obese soft nontender Extremities without peripheral edema or cyanosis Psych Mental Status: mental status grossly normal Speech and Movement: speech and movement normal Mood: congruent mood Affect: normal affect DS: Data Vitals/I&O Vitals and I&O: Vital Signs Temperature 36.1 C L 12/28/21 08:11 Temperature Source Temporal Artery Scan 12/28/21 08:11 Pulse 60 12/28/21 08:14 Pulse Rhythm Irregular 12/27/21 22:39 Pulse 60 12/28/21 10:09 Respiratory Rate 16 12/28/21 10:09 Respiratory Effort Non-Labored 12/28/21 08:15 Respiratory Depth Normal 12/28/21 08:15 Respiratory Pattern Normal 12/28/21 08:15 Blood Pressure 124/86 12/28/21 08:12 Blood Pressure Mean 96 12/28/21 08:12 Blood Pressure Position Left Lateral 12/27/21 08:30 Pulse Oximetry 99 12/28/21 08:13 Oxygen Delivery Method Nasal Cannula 12/27/21 22:35 Oxygen Flow Rate 2 12/27/21 22:35 Fraction of Inspired Oxygen (FIO2) 28 12/26/21 05:30 Pain Level 0 12/27/21 16:20 Comment 12/24/21 13:30 Intake & Output 12/27/21 12/28/21 12/28/21 23:59 11:59 23:59 Intake Total 890 / 1230 220 / 220 Output Total 475 / 1275 Balance 415 / -45 220 / 220 Intake: IV 50 / 150 100 / 100 Oral 840 / 1080 120 / 120 Output: Urine 475 / 1275 Other: Urine Color Yellow Urine Appearance Clear Comment unable to measure due to TP in commode Stool Size Moderate Stool Characteristics Formed Voiding Methods Bedside Commode Data Completed and Pending Labs on day of discharge: Labs from last 24 hours 12/28/21 12/28/21 12/28/21 05:18 05:18 05:18 WBC 14.53 H RBC 4.21 Hgb 13.2 Hct 39.2 MCV 93 MCH 31.4 MCHC 33.7 RDW 13.3 Plt Count 251 MPV 10.3 Immature Gran % 0.9 Neutrophils % 92.7 Lymphocytes % 2.1 Monocytes % 4.2 Eosinophils % 0.0 Basophils % 0.1 Nucleated RBC % 0.0 Absolute Neutrophils 13.47 H Absolute Lymphocytes 0.31 L Absolute Monocytes 0.61 Absolute Eosinophils 0.00 Absolute Basophils 0.01 Sodium 138 Potassium 4.1 Chloride 105 Carbon Dioxide 28.2 Anion Gap 4.8 BUN 56 H Creatinine 1.5 H Est GFR (CKD-EPI 2020) 37.49 Glucose 159 H Calcium 8.6 Ferritin 171 Total Bilirubin 0.4 AST 22 ALT 60 H Alkaline Phosphatase 57 C-Reactive Protein 0.12 Total Protein 5.6 L Albumin 2.5 L Procalcitonin < 0.1 PFSH All Active Problems Atrial flutter with rapid ventricular response (Acute) SVT (supraventricular tachycardia) (Acute) Discharge planning issues (Acute) Acute respiratory distress (Acute) Tobacco abuse (Chronic) Depression (Chronic) Hypertension (Chronic) DVT prophylaxis (Acute) Dental abscess (Acute) COPD (chronic obstructive pulmonary disease) (Chronic) Personal history of nicotine dependence (Acute) Traumatic injury of left lower extremity (Acute) Rhabdomyolysis (Acute) Right ankle injury (Acute) Anemia (Chronic) Medical History CKD (chronic kidney disease) stage 3, GFR 30-59 ml/min Pt. denies Diabetes mellitus Diabetes mellitus 10/21/21 [facility] visit not well controlled, A1C 8.2 Discharge planning issues On supplemental oxygen therapy on O2 of night. Is able to lay flat Surgical History Hx of hernia repair Social History Smoking/Tobacco Use Status: Former Tobacco Use Quit Date: 03/23/18 Smoking risk assessment performed?: Yes Alcohol Intake: current Alcohol Intake frequency: holidays/special occasions only Drug use: Never Substance use type: does not use Do you feel safe at home: Yes Do you feel safe in your relationship?: Yes
[2021-12-28] MEDS: Insulin Aspart 300 UNITS/3 ML PEN SC (12:48)
--- NOTE | 2021-12-28 16:01 | PDOC.CMDIS ---
- If Service Date Differs Date of service: 12/28/21 Time of Service: 16:01 LACE Index Scoring Tool - Questions: Length of Stay (in days): 7 - 13 Acuity (Admit via E.D.?): Yes Comorbidities: Chronic Pulmonary Disease E.D. Visits: 2 - Answers: Total Score: 12 Risk of Readmission: High Risk Care Management Discharge Reason for Hospitalization: COVID Pneumonia, COPD exacerbation with hypoxemia Discharge Plan: Shira is discharged home with no services. She will follow up with her PCP, cardiology and plan of care as prescribed. She is transported home by family via private vehicle. Patient/Family Education Needs: Review of discharge instructions re medications, limitations and follow up plan of care; discuss Ask Me Three and self management.
--- NOTE | 2021-12-28 16:59 | PDOC.HHF2F ---
Home Health Certification Home Health Certification: 1. Encounter Date and Reason I certify that Shira Kelly was seen by Luciano Coleman on 12/28/21 and that I had a [id number] encounter with this patient that meets the physician face to face encounter requirements. 2. Clinical Findings Supporting Skilled Need and Homebound Status I certify that home health services are medically necessary, include either intermittent long-term and/or physical/speech therapy, and that this patient is homebound in that absences from the home require considerable and taxing effort and are infrequent or of short duration, or are attributable to the need to receive medical care. [X] (a) Attached documentation from encounter provides clinical findings supporting skilled need and homebound status (including what assistance patient requires to leave the home). The encounter with the patient was in whole, or in part, for the following medical condition, which is the primary reason for home health care: Covid Pneumonia, COPD Exacerbation with Hypoxemia, atrial fibrillation Fpc: to evaluate and treat patient for her copd and atrial flutter/fibrillation, monitor medication tolerance and compliance and educate patient on her medical conditions and medications. [facility] to coordinate medical services Physical Therapy: evaluate and treat for generalized weakness and decreased stamina d/t recent COVID 19 infection and COPD and atrial fibrillation Speech Therapy: Homebound: patient recent infection has left her w/ generalized weakness and deconditioning which jeopardizes her health making services outside her home not safe 3. Certification and Authentication I certify that I composed the above information based on my clinical judgement relating to this patient's medical condition and, if applicable, clinical findings communicated to me by the NPP or inpatient physician who performed the Home Health Referral. All further orders will be obtained through Liliam Noble (Community Based Physician - PCP)
--- NOTE | 2021-12-30 09:41 | PT.INDS ---
Date of service: 12/28/21 Time of Service: 09:41 PT Notes Visit Reasons: Covid Pneumonia, COPD Exacerbation with Hypoxemia Inpatient Physical Therapy Discharge Summary Treatment Dates: 12/26/21-12/28/21 Referring Doctor: Yayo Byers PT Orders: PT CONSULT Precautions: Standard, COVID This document serves as a summary of care. No PT services were provided on this date. Patient Profile/Admitting Diagnosis: Shira is a 71 year old female admitted to [facility] on 12/16/21 for Covid pneumonia, COPD exacerbation with hypoxemia. Unfortunately, she demonstrated elevated HR during PT session on 12/24/21. Medical work up identified SVT, and patient was transferred to ICU. She was then evaluated and participated in 2 PT sessions,with improving independence and safety. Social History/Home Situation:Shira resides alone in [place], [place] with her two dogs; a boxer and a chihuahua. She has a daughter, Effie who resides in [place] and a Grandson, Camilo who resides in [place] as well as a healthy support network of friends per her report. 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 Shira is independent with all ADLs in the community at baseline. She reports use of a cane for ambulation. She has a ramp to enter her home, once inside all one level. Current Functional Limitations: Decreased activity tolerance due to SOB, general weakness due to immobility secondary to ongoing illness Equipment Owned/DME: Cane Subjective: none obtained Objective: ROM: Right Upper Extremity: Demonstrates WFL AROM of R UE Left Upper Extremity: Demonstrates WFL AROM of L UE Right Lower Extremity: Demonstrates WFL AROM of R LE with exception of limited ankle DF Left Lower Extremity: Demonstrates WFL AROM of L LE Strength: Right Upper Extremity: Demonstrates grossly 4/5 R UE strength upon resistance. Left Upper Extremity: Demonstrates grossly 4/5 L UE strength upon resistance Right Lower Extremity: Hip flexion 4/5, knee extension/flexion 5/5, DF 3/5 Left Lower Extremity: Hip flexion 4/5, knee extension/flexion 5/5, DF 4/5Right Upper Extremity: Demonstrates grossly 4/5 R UE strength upon resistance. BED MOBILITY/TRANSFERS? ? ? Able to demonstrate the following on 12/28/21: ? Rolling L/R: Independent, according to patient Sit-stand:Independent Stand-sit: Independent ? GAIT? Able to demonstrate the following on 12/28/21:? Assistive Device: SPC? Weight bearing: Full Assist: Supervision ? Distance:? 30ft x2? Deviation: decreased quin widened base of support? Balance: Static Sitting: Normal Dynamic Sitting: Normal Static Standing: Good Dynamic Standing: Fair Assessment: Patient is a 71 year old female referred to physical therapy services with the diagnosis of Covid pneumonia, COPD exacerbation with hypoxemia. Patient participated in 2 PT sessions, with improvements in independence and safety. Discharged home on 12/28/21. Goals: Goals X1 week (ALL GOALS MET DAY) 1. Supine-Sit Independent 2. Sit-Supine Independent 3. Sit-Stand Independent 4. Stand-Sit Independent 5. Bed-Chair Independent 6. Chair-Bed Independent 7. Gait 50 ftx2 with use of SPC with reduced dyspnea Plan of Care/Treatment Plan: D/C from PT services DISCHARGE RECOMMENDATIONS: Home with [facility] services TREATMENT CODE/TIME: None Noni Galaviz, MPT [facility]
== END 2021-12-28 14:45 | disposition home health service (06) | DRG 177 ==
LOC: ER 18:48 → MS 20:21 → ICU 12-24 15:09
PROVIDERS: Family Medicine; Internal Medicine; Student in an Organized Health Care Education/Training Program; Admitting Provider Internal Medicine; Emergency Provider Student in an Organized Health Care Education/Training Program; PCP Nurse Practitioner Family; Visit Provider Internal Medicine
DX: U07.1 COVID-19 (principal); J12.82 Pneumonia due to coronavirus disease 2019; J18.9 Pneumonia, unspecified organism; J96.21 Acute and chronic respiratory failure with hypoxia; J44.0 Chronic obstructive pulmonary disease with (acute) lower respiratory infection; J44.1 Chronic obstructive pulmonary disease with (acute) exacerbation; J96.11 Chronic respiratory failure with hypoxia; Z68.43 Body mass index [BMI] 50.0-59.9, adult; I47.1 Supraventricular tachycardia; I48.92 Unspecified atrial flutter; E11.22 Type 2 diabetes mellitus with diabetic chronic kidney disease; F17.210 Nicotine dependence, cigarettes, uncomplicated; F32.A Depression, unspecified; I12.9 Hypertensive chronic kidney disease with stage 1 through stage 4 chronic kidney disease, or unspecified chronic kidney disease; N18.30 Chronic kidney disease, stage 3 unspecified; I48.0 Paroxysmal atrial fibrillation; E66.9 Obesity, unspecified; G47.33 Obstructive sleep apnea (adult) (pediatric); D64.9 Anemia, unspecified; I45.10 Unspecified right bundle-branch block
CPT/HCPCS: 36415; 36569; 36592; 71045; 80048; 80053; 80076; 80307; 82805; 82947; 84145; 87635; 87637; 93005; 93308; 94618; 94640; 96365; 96375; 97110; 97161; 97162; 97530; 99285; J1650; 81003; 81015; 82728; 83036; 83735; 83880; 84100; 84439; 84443; 84484; 85025; 85379; 85610; 85730; 86140; 87086; 93010; 93306; 94660; 94664; 94760; 99223; 99232; 99239; 99291; J0153; J0248; J0696; J1100; J2060; J3470; J3490; J7613; J7620

== ENCOUNTER 2022-01-12 20:34 | Inpatient (IN) | payer MEDICARE, SELFPAY ==
[2022-01-12] VITALS (79 sets, daily range): BP systolic 77–137; BP diastolic 45–99; PULSE 78–167; RESP 0–37; TEMP 36.7–36.8; O2SAT 87–100
--- NOTE | 2022-01-12 20:30 | RT.EKG_ITS ---
APPROVED REPORT Exam: Resting ECG Reason for Exam: ?chf Patient Location: E HR:92 bpm ECG Measurements Heart Rate 92 AXIS IN 180 P 0 QRSd 203 QRS 70 QT 504 T 11 QTc 624 Conclusion Sinus rhythm...normal P axis, V-rate 60- 99 Right bundle branch block...QRSd>120, terminal axis(90,270) Inferior infarct, old...Q >35mS, II III aVF motion artifact, no stemi
--- NOTE | 2022-01-12 20:45 | DI.RAD_ITS ---
Exam(s) XR CHEST 2V PA LATERAL EXAM: XR CHEST 2V PA LATERAL CLINICAL HISTORY: shortness of breath TECHNIQUE: 2D digital imaging was performed. COMPARISON: CT CT CHEST LUNG CANCER SCREEN from 05/27/2021 CR,XR XR PORTABLE CHEST AP from 12/16/2021 CR XR PORTABLE CHEST AP POST LINE from 12/25/2021 FINDINGS: The exam is extremely limited by underpenetration at the lung bases and patient body habitus. HEART: Cardiac silhouette obscured by overlying soft tissues. Aorta: Not dilated. PULMONARY VASCULATURE: Normal. LUNGS: No gross infiltrate. PLEURAL SPACE: Minimal blunting left costophrenic angle may be chronic. BONE:Unremarkable for age. IMPRESSION: Extremely limited exam. No gross evidence of an acute abnormality. DATA REPOSITORY: RADIATION DOSE DELIVERED:
--- NOTE | 2022-01-12 20:49 | ED.GENADUL_ITS ---
Discharge Plan Disposition Patient Disposition: [facility] INPATIENT Condition: Stable Discharge Details Clinical Impression: COPD (chronic obstructive pulmonary disease), General weakness, Pleural effusion, Anemia Primary Care Provider: Liliam Noble ED Provider: Nash Delarosa Home Meds and New Rx's Prescriptions: No Action Nicotrol 10 mg cartridge 1 inh inhalation 4-6XD PRN (DME) Oxygen Tank See Rx Instructions .ROUTE .MEDSUPPLY Qty: 1 Rx Instructions: As directed,2L with physical activity. gabapentin 100 mg capsule 1 cap PO HS omega-3 fatty acids 1,000 mg Capsule 1,000 mg PO DAILY escitalopram oxalate [Lexapro] 20 mg Tablet 20 mg PO DAILY cholecalciferol (vitamin D3) [Vitamin D3] 2,000 unit Capsule 2,000 unit PO DAILY rosuvastatin [Crestor] 10 mg Tablet 10 mg PO DAILY cinnamon bark [Cinnamon] 500 mg Capsule 1,000 mg PO DAILY Rx Instructions: No dose given. albuterol sulfate [ProAir HFA] 90 mcg/actuation Hfa Aerosol Inhaler 2 puff Inhalation Q6H PRN PRN glipizide [Glucotrol XL] 5 mg Tablet Extended Release 24hr 5 mg PO BID cyclobenzaprine 10 mg Tablet 10 mg PO TID PRN PRN aspirin [Aspir-81] 81 mg Tablet,Delayed Release (Dr/Ec) 81 mg PO DAILY (DME) nebulizers misc See Dose Instructions .ROUTE .MEDSUPPLY Qty: 1 0RF Dose Instruction: As directed Rx Instructions: As directed Trelegy Ellipta 100-62.5-25 mcg blister with device 1 inh INHALATION DAILY amiodarone [Pacerone] 200 mg Tablet 400 mg PO BID Qty: 90 0RF Rx Instructions: 400 mg bid x 10 days, 400 mg daily x 14 days then 200 mg daily Eliquis 5 mg Tablet 5 mg PO BID Qty: 60 0RF Spiriva Respimat 2.5 mcg/actuation Mist 2 puff inhalation DAILY Qty: 4 0RF metoprolol succinate 50 mg Tablet Extended Release 24 Hr 50 mg PO DAILY Qty: 30 0RF levalbuterol tartrate 45 mcg/actuation Hfa Aerosol Inhaler 2 puff inhalation Q4H PRN PRNQty: 15 0RF Inhaler, Assist Devices [Pocket Chamber] 1 ea miscellaneous DIRECTED Qty: 0 0RF lisinopril 10 mg Tablet 5 mg PO DAILY Qty: 0 0RF Medical Decision Making 71 yo female with multiple medical problems including copd on home o2, afib, htn, dm, who was admitted at the end of november and discharged earlier this month after being admitted for covid and pneumonia, comes in with worsening g eneral weakness and malaise since d/c. She states today she had some body shaking/tremors and was too weak to get up so called ems. She denies fevers, severe headache. She has chronic shortness of breath and is on her home 3L Nv and is 94%. She is stable on arrival, diminished breath sounds at the bases, soft nontender abdomen, does have pitting edema of both lower legs up tot he mid tibia, no calf tenderness or warmth or erythema. She has mild erythema underneat her left breast with some satellite lesions, no crepitus or severe pain, seems like a yeast infection and less likely cellulitis. Unclear etiology for her general malaise, will evaluate for anemia and electrolyte abnormalities as well as dino and obtain chest xray to further evaluate along with ua to evaluate for uti labs show pco2 of 68, still testing positive for covid but originally tested positive in november so doubt this is the cause for her symptoms, slight increase in probnp and has small left pleural fluid, will treat with a dose of lasix. Mag 1.4 as well so 2grams ordered. She gets short of breath with movement and generally weak and doesn't feel she can go home and feel in her current state it would not be safe for her to go home, will discuss with hospitalist about admission hospitalist performed rectal exam and is guiac positive, not grossly blood or violeta blood, not anemic enough to require transfusion at this time Differential Diagnosis Differential Diagnosis: uti, anemia, electrolyte abnormality Medical Records Medical records reviewed: Yes I reviewed the patient's medical records. Imaging Data Radiologic Study: Attestation: I personally reviewed and interpreted this imaging study as follows: Imaging: X-Ray My impression: left pleural fluid, no infiltrates Lab Data Lab results reviewed: Yes I reviewed the patient's lab results. ECG Data Attestation: I personally reviewed and interpreted this ECG (s) as follows: Prior ECG tracings: available for review Interpretation: sinus rhythm, rbbb, rate of 92, no acute st t wave ischemic findings though does have motion artifact HPI General Mode of arrival: ambulatory . Date/Time Provider Initiated Documentation: 01/12/22 20:43 . Limitations to Documentation: no limitations . Information obtained by: patient . History of Present Illness 71 year old F presents to the emergency department with the chief complaint of general malaise, described as moderate, Patient started experiencing this week(s) (1) and it has been constant. No relieving factors improve symptom(s), No exacerbating factors reported . Patient notes shortness of breath. Patient did receive the following treatments prior to arrival, none Related Data Home Medications Medication Instructions Recorded Confirmed albuterol sulfate 90 mcg/actuation 2 puff inhalation Q6H PRN PRN 11/25/17 01/12/22 aerosol inhaler (ProAir HFA) aspirin 81 mg tablet,delayed 81 mg PO DAILY 11/25/17 01/12/22 release (Aspir-) cholecalciferol (vitamin D3) 50 2,000 unit PO DAILY 11/25/17 01/12/22 mcg (2,000 unit) capsule (Vitamin D3) cinnamon bark 500 mg capsule 1,000 mg PO DAILY 11/25/17 01/12/22 (Cinnamon) cyclobenzaprine 10 mg tablet 10 mg PO TID PRN PRN 11/25/17 01/12/22 escitalopram oxalate 20 mg tablet 20 mg PO DAILY 11/25/17 01/12/22 (Lexapro) glipizide 5 mg tablet, extended 5 mg PO BID 11/25/17 01/12/22 release 24 hr (Glucotrol XL) omega-3 fatty acids 1,000 mg 1,000 mg PO DAILY 11/25/17 01/12/22 capsule rosuvastatin 10 mg tablet (Crestor) 10 mg PO DAILY 11/25/17 01/12/22 nebulizers #1 ea 11/30/17 01/12/22 fluticasone fur. 100 mcg-umeclid 1 inh inhalation DAILY 09/30/20 01/12/22 62.5 mcg-vilant 25 mcg inhalat.powder (Trelegy Ellipta) Oxygen #1 ea 10/25/20 01/12/22 gabapentin 100 mg capsule 1 cap PO HS leg cramps 10/29/21 01/12/22 nicotine 10 mg inhalation 1 inh inhalation 4-6XD PRN 11/11/21 01/12/22 cartridge (Nicotrol) Inhaler, Assist Devices [Pocket 1 ea miscellaneous DIRECTED ##0 12/28/21 01/12/22 Chamber] amiodarone 200 mg tablet (Pacerone) 400 mg PO BID #90 tabs 12/28/21 01/12/22 apixaban 5 mg tablet (Eliquis) 5 mg PO BID #60 tabs 12/28/21 01/12/22 levalbuterol tartrate 45 2 puff inhalation Q4H PRN PRN #15 12/28/21 01/12/22 mcg/actuation aerosol inhaler grams lisinopril 10 mg tablet 5 mg PO DAILY #0 tabs 12/28/21 01/12/22 metoprolol succinate 50 mg 50 mg PO DAILY #30 tabs 12/28/21 01/12/22 tablet,extended release 24 hr tiotropium bromide 2.5 2 puff inhalation DAILY #4 grams 12/28/21 01/12/22 mcg/actuation mist for inhalation (Spiriva Respimat) Previous Rx's Medication Instructions Recorded nebulizers #1 ea 11/30/17 Inhaler, Assist Devices [Pocket 1 ea miscellaneous DIRECTED ##0 12/28/21 Chamber] amiodarone 200 mg tablet (Pacerone) 400 mg PO BID #90 tabs 12/28/21 apixaban 5 mg tablet (Eliquis) 5 mg PO BID #60 tabs 12/28/21 levalbuterol tartrate 45 2 puff inhalation Q4H PRN PRN #15 12/28/21 mcg/actuation aerosol inhaler grams lisinopril 10 mg tablet 5 mg PO DAILY #0 tabs 12/28/21 metoprolol succinate 50 mg 50 mg PO DAILY #30 tabs 12/28/21 tablet,extended release 24 hr tiotropium bromide 2.5 2 puff inhalation DAILY #4 grams 12/28/21 mcg/actuation mist for inhalation (Spiriva Respimat) Allergies Allergy/AdvReac Type Severity Reaction Status Date / Time codeine Allergy Mild Verified 01/12/22 21:48 fluticasone Allergy Mild Verified 01/12/22 21:48 [From Advair Diskus] salmeterol Allergy Mild Verified 01/12/22 21:48 [From Advair Diskus] Sulfa (Sulfonamide Allergy Mild Unknown Verified 01/12/22 21:48 Antibiotics) General Stated Complaint: GenMedical VIRY: 3 Review of Systems All systems reviewed & are unremarkable except as noted in HPI and below Constitutional Constitutional: Denies fever(s) Cardiovascular Cardiovascular: Denies chest pain and Denies dyspnea Respiratory Respiratory: Denies dyspnea Gastrointestinal Gastrointestinal: Denies abdominal pain, Denies nausea and Denies vomiting Musculoskeletal Musculoskeletal: Denies joint swelling Psychiatric Psychiatric: Denies depression PFSH All Active Problems (Updated 01/12/22 @ 23:16 by Nash Delarosa MD) Anemia (Chronic) General weakness (Acute) Pleural effusion (Acute) Discharge planning issues (Acute) Tobacco abuse (Chronic) Depression (Chronic) Hypertension (Chronic) Dental abscess (Acute) COPD (chronic obstructive pulmonary disease) (Chronic) Personal history of nicotine dependence (Acute) Traumatic injury of left lower extremity (Acute) Rhabdomyolysis (Acute) Right ankle injury (Acute) Anemia (Chronic) Medical History CKD (chronic kidney disease) stage 3, GFR 30-59 ml/min Pt. denies Diabetes mellitus Diabetes mellitus 10/21/21 [facility] visit not well controlled, A1C 8.2 Discharge planning issues On supplemental oxygen therapy on O2 of night. Is able to lay flat Surgical History Hx of hernia repair Social History Smoking/Tobacco Use Status: Former Tobacco Use Quit Date: 03/23/18 Smoking risk assessment performed?: Yes Alcohol Intake: current Alcohol Intake frequency: holidays/special occasions only Drug use: Never Substance use type: does not use Do you feel safe at home: Yes Do you feel safe in your relationship?: Yes Exam Const General: no acute distress Orientation: alert HENMT Head: normal to inspection Ears: external ears normal General nose exam: external nose normal Mouth: moist mucous membranes Eyes General: appearance normal, both eyes and all related structures Neck Neck: normal visual inspection Chest Chest: no crepitus and no tenderness Resp Effort & Inspection: normal respiratory effort and able to speak in complete sentences Cardio Rate: regular rate Skin General skin exam: erythema Neuro General: patient alert and patient oriented x3 Extrem General: normal to inspection Psych Mental Status: mental status grossly normal Course Vital Signs Vital signs: Vital Signs Temperature 36.8 C 01/12/22 20:35 Pulse 96 H 01/12/22 20:35 Respiratory Rate 28 H 01/12/22 20:35 Blood Pressure 119/73 01/12/22 20:35 Pulse Oximetry 97 01/12/22 20:35 Temperature 36.8 C 01/12/22 20:35 Temperature Source Skin 01/12/22 20:35 Pulse 96 H 01/12/22 20:35 Respiratory Rate 28 H 01/12/22 20:35 Blood Pressure 119/73 01/12/22 20:35 Pulse Oximetry 97 01/12/22 20:35 Oxygen Delivery Method Nasal Cannula 01/12/22 20:35 Oxygen Flow Rate 2 01/12/22 20:35 Pain Level 4 01/12/22 20:35
[2022-01-12 21:01] LABS: Source Nasal/Nares
[2022-01-12 21:05] LABS: HCO3 (Venous) 41 mmol/L (23-28); O2 Sat (Venous) 56 %; TCO2 (Venous) 38 mmol/L (24-29); pH (Venous) 7.38 (7.31-7.41); pO2 (Venous) 31 mmHg
[2022-01-12 21:06] LABS: BE (Venous) > 15 mmol/L (-2-3)
[2022-01-12 21:08] LABS: pCO2 (Venous) 68 mmHg (41-51)
[2022-01-12 21:09] LABS: Absolute Basophil Count 0.02 10^3/uL (0.0-0.2); Absolute Eosinophil Count 0.09 10^3/uL (0.0-0.7); Absolute Lymphocyte Count 0.58 10^3/uL (1.2-3.4); Absolute Monocyte Count 0.65 10^3/uL (0.1-0.8); Absolute Neutrophil Count 8.61 10^3/uL (1.2-6.7); Basophils % 0.2; Eosinophils % 0.9; HCT 29.7 % (36.0-46.0); HGB 9.6 g/dL (11.2-15.7); Lymphocytes % 5.8; MCH 31.3 pg (27.0-33.0); MCHC 32.3 % (32.0-36.0); MCV 97 fL (80-95); MPV 8.8 fL (8.0-11.0); Monocytes % 6.5; Neutrophils % 85.6; Platelet Count 304 10^3/uL (130-400); RBC 3.07 10^6/uL (3.93-5.22); RDW 15.1 % (11.7-14.6); RDW-SD 51.1 fL; WBC 10.05 10^3/uL (4.4-10.8)
[2022-01-12 21:19] LABS: PTT Activated 32.8 sec (21.0-27.5); Prothrombin Time 10.3 sec (9.3-11.0)
[2022-01-12 21:31] LABS: ALT 23 U/L (14-59); AST 25 U/L (15-37); Alkaline Phosphatase 86 U/L (46-116); Anion Gap 2.3 mmol/L (3-11); BUN 20 mg/dL (7-18); Bilirubin, Total 1.2 mg/dL (0.2-1.0); CO2 38.7 mmol/L (21.0-32.0); CREATININE 1.4 mg/dL (0.55-1.02); Calcium 8.7 mg/dL (8.5-10.1); Chloride 95 mmol/L (98-107); Estimated GFR 40.73 (mL/min/1.73m2); Glucose 398 mg/dL (74-106); Magnesium 1.4 mg/dL (1.8-2.4); NT-proBNP 2291 pg/mL (<300); Sodium 136 mmol/L (136-145); Total Protein 6.5 g/dL (6.4-8.2); Troponin I < 50 ng/L (<or=60)
[2022-01-12 21:40] LABS: COVID-19 PCR POSITIVE (Negative)
--- NOTE | 2022-01-12 21:52 | DI.VRAD_ITS ---
PROCEDURE INFORMATION: Exam: XR Chest Exam date and time: 01/12/2022 9:45 PM Age: 71 years old Clinical indication: Shortness of breath TECHNIQUE: Imaging protocol: Radiologic exam of the chest. Views: 2 views. COMPARISON: CR XR PORTABLE CHEST AP POST LINE 12/25/2021 7:53 AM FINDINGS: Mildly limited due to overlying breast soft tissues Lungs: Mild bibasilar subsegmental atelectasis Pleural spaces: Small left pleural effusion. No pneumothorax. Heart/Mediastinum: Grossly stable. Bones/joints: Unremarkable. IMPRESSION: Mild bibasilar subsegmental atelectasis and small left pleural fluid Dictated and Authenticated by: Alin Gonzalez MD. Ordering:OMERO Cao MD
[2022-01-12] MEDS: Albuterol/Ipratropium 3 ML UPD VIAL UPD (21:54)
[2022-01-12] MEDS: methylPREDNISolone SUCC 125 MG VIAL IVP (22:11)
[2022-01-12] MEDS: MAGNESIUM SULFATE 2 GM/50 ML BAG IVPB (22:13)
[2022-01-12] MEDS: Furosemide 20 MG/2 ML VIAL IVP (22:22)
--- NOTE | 2022-01-12 22:49 | W.PM.HP.N ---
Date of service: 01/12/22 Time of Service: 22:49 Assessment and Plan Assessment and plan (1) General weakness: Status: Acute Assessment and plan: Weakness, likely multifactorial.On the baseline of ongoing COPD there is the new factor of anemia with GI bleeding; I suspect this latter is the primary issue here, and may well be due to recent institution of DOAC (along with baseline ASA). There is also continued COVID positivity but there is certainly no indication of acute reinfection and I would call this more as a laboratory finding than a clinical factor at this point, though there certainly may be an element of lingering symptomatology playing a role. May also be an element of CHF but probably not substantial. Will continue treatment for COPD, add PPI and hold ASA and DOAC, and trend HCT. Does not need transfusion at present. 1. COPD: continue Duonebs and steroids 2. GI bleed: hold ASA and DOAC, begin PPI, trend Hct 3. CHF?: follow clinically after ER dose of Lasix 4. DM: add SS coverage 5. AFlutter: rate is regular at present. I cannot identify flutter waves (and this would be an unusual rate for a regular AFl), though I also cannot reliably identify P waves. I suspect she likely has PAF, but regardless rate is controlled Code Status: reviewed ADs, requests Full Code. History of Present Illness History of Present Illness Chief Complaint: weakness Narrative: 71 female with h/o COPD, admitted here last month with COVID complicated by pneumonia, and also new onset Aflutter, started on DOAC. D/C'ed 12/28 to home. Returns with progressive weakness since and continued SOB. No cough fever or CP. In ER findings of note for absence of fever, poor air movement and wheeze; no leukocytosis, trop negative; BNP 2291; CXR with small left pleural effusion (unchanged to my eye) and persistent COVID positivity. Received Duonebs, Solumedrol, Magnesium and Lasix 20 IVP. I was asked to evaluate for admission. Patient does note several episodes of black stool last week. No abd pain. Notes few episodes of epistaxis, but brief and self limited. Review of Systems Narrative: per HPI PFSH All Active Problems General weakness (Acute) Pleural effusion (Acute) Discharge planning issues (Acute) Tobacco abuse (Chronic) Depression (Chronic) Hypertension (Chronic) Dental abscess (Acute) COPD (chronic obstructive pulmonary disease) (Chronic) Personal history of nicotine dependence (Acute) Traumatic injury of left lower extremity (Acute) Rhabdomyolysis (Acute) Right ankle injury (Acute) Anemia (Chronic) Medical History CKD (chronic kidney disease) stage 3, GFR 30-59 ml/min Pt. denies Diabetes mellitus Diabetes mellitus 10/21/21 [facility] visit not well controlled, A1C 8.2 Discharge planning issues On supplemental oxygen therapy on O2 of night. Is able to lay flat Surgical History Hx of hernia repair Social History Smoking/Tobacco Use Status: Former Tobacco Use Quit Date: 03/23/18 Smoking risk assessment performed?: Yes Alcohol Intake: current Alcohol Intake frequency: holidays/special occasions only Drug use: Never Substance use type: does not use Do you feel safe at home: Yes Do you feel safe in your relationship?: Yes Meds Allergies and Home Medications Allergies Allergy/AdvReac Type Severity Reaction Status Date / Time codeine Allergy Mild Verified 01/12/22 21:48 fluticasone Allergy Mild Verified 01/12/22 21:48 [From Advair Diskus] salmeterol Allergy Mild Verified 01/12/22 21:48 [From Advair Diskus] Sulfa (Sulfonamide Allergy Mild Unknown Verified 01/12/22 21:48 Antibiotics) Home Medications Medication Instructions Recorded Confirmed Type albuterol sulfate 90 mcg/actuation 2 puff inhalation Q6H PRN PRN 11/25/17 01/12/22 History aerosol inhaler (ProAir HFA) aspirin 81 mg tablet,delayed 81 mg PO DAILY 11/25/17 01/12/22 History release (Aspir-) cholecalciferol (vitamin D3) 50 2,000 unit PO DAILY 11/25/17 01/12/22 History mcg (2,000 unit) capsule (Vitamin D3) cinnamon bark 500 mg capsule 1,000 mg PO DAILY 11/25/17 01/12/22 History (Cinnamon) cyclobenzaprine 10 mg tablet 10 mg PO TID PRN PRN 11/25/17 01/12/22 History escitalopram oxalate 20 mg tablet 20 mg PO DAILY 11/25/17 01/12/22 History (Lexapro) glipizide 5 mg tablet, extended 5 mg PO BID 11/25/17 01/12/22 History release 24 hr (Glucotrol XL) omega-3 fatty acids 1,000 mg 1,000 mg PO DAILY 11/25/17 01/12/22 History capsule rosuvastatin 10 mg tablet (Crestor) 10 mg PO DAILY 11/25/17 01/12/22 History nebulizers #1 ea 11/30/17 01/12/22 Rx fluticasone fur. 100 mcg-umeclid 1 inh inhalation DAILY 09/30/20 01/12/22 History 62.5 mcg-vilant 25 mcg inhalat.powder (Trelegy Ellipta) Oxygen #1 ea 10/25/20 01/12/22 History gabapentin 100 mg capsule 1 cap PO HS leg cramps 10/29/21 01/12/22 History nicotine 10 mg inhalation 1 inh inhalation 4-6XD PRN 11/11/21 01/12/22 History cartridge (Nicotrol) Inhaler, Assist Devices [Pocket 1 ea miscellaneous DIRECTED ##0 12/28/21 01/12/22 Rx Chamber] amiodarone 200 mg tablet (Pacerone) 400 mg PO BID #90 tabs 12/28/21 01/12/22 Rx apixaban 5 mg tablet (Eliquis) 5 mg PO BID #60 tabs 12/28/21 01/12/22 Rx levalbuterol tartrate 45 2 puff inhalation Q4H PRN PRN #15 12/28/21 01/12/22 Rx mcg/actuation aerosol inhaler grams lisinopril 10 mg tablet 5 mg PO DAILY #0 tabs 12/28/21 01/12/22 Rx metoprolol succinate 50 mg 50 mg PO DAILY #30 tabs 12/28/21 01/12/22 Rx tablet,extended release 24 hr tiotropium bromide 2.5 2 puff inhalation DAILY #4 grams 12/28/21 01/12/22 Rx mcg/actuation mist for inhalation (Spiriva Respimat) Exam Narrative Exam Narrative: 114/40, 89, 36.8, 32, 91% 3L NC. HEENT atraumatic; neck supple; lungs severely diminished, faint scatteredf wheeze; heart distant, RRR; abdomen soft and NT; rectal heme +; extremities trace pedal edema; neuro Ox3, lucid, moves all 4s Results Labs Result diagrams: 01/12/22 20:55 01/12/22 20:55 Labs: Laboratory Results - last 24 hr 01/12/22 01/12/22 01/12/22 20:55 20:55 20:55 WBC 10.05 RBC 3.07 L Hgb 9.6 L Hct 29.7 L MCV 97 H MCH 31.3 MCHC 32.3 RDW 15.1 H Plt Count 304 MPV 8.8 Immature Gran % 1.0 Neutrophils % 85.6 Lymphocytes % 5.8 Monocytes % 6.5 Eosinophils % 0.9 Basophils % 0.2 Nucleated RBC % 0.0 Absolute Neutrophils 8.61 H Absolute Lymphocytes 0.58 L Absolute Monocytes 0.65 Absolute Eosinophils 0.09 Absolute Basophils 0.02 PT INR APTT VBG pH VBG pCO2 VBG pO2 VBG HCO3 VBG Total CO2 VBG O2 Saturation VBG Base Excess Sodium 136 Potassium 4.0 Chloride 95 L Carbon Dioxide 38.7 H Anion Gap 2.3 L BUN 20 H Creatinine 1.4 H Est GFR (CKD-EPI 2020) 40.73 Glucose 398 H Calcium 8.7 Magnesium 1.4 L Total Bilirubin 1.2 H AST 25 ALT 23 Alkaline Phosphatase 86 Troponin I < 50 NT-Pro-B Natriuret Pep 2291 H Total Protein 6.5 Albumin 2.0 L COVID-19 Source Nasal/Nares SARS-CoV-2 (PCR) POSITIVE A* 01/12/22 01/12/22 20:55 20:55 WBC RBC Hgb Hct MCV MCH MCHC RDW Plt Count MPV Immature Gran % Neutrophils % Lymphocytes % Monocytes % Eosinophils % Basophils % Nucleated RBC % Absolute Neutrophils Absolute Lymphocytes Absolute Monocytes Absolute Eosinophils Absolute Basophils PT 10.3 INR 1.0 APTT 32.8 H VBG pH 7.38 VBG pCO2 68 H* VBG pO2 31 VBG HCO3 41 H VBG Total CO2 38 H VBG O2 Saturation 56 VBG Base Excess > 15 H Sodium Potassium Chloride Carbon Dioxide Anion Gap BUN Creatinine Est GFR (CKD-EPI 2020) Glucose Calcium Magnesium Total Bilirubin AST ALT Alkaline Phosphatase Troponin I NT-Pro-B Natriuret Pep Total Protein Albumin COVID-19 Source SARS-CoV-2 (PCR) Last Vital Signs Temp 36.8 C 01/12/22 20:35 Pulse 89 01/12/22 21:54 Resp 22 01/12/22 21:54 BP 114/49 L 01/12/22 21:13 Pulse Ox 97 01/12/22 21:54
[2022-01-12] MEDS: Pantoprazole 40 MG VIAL IVP (23:30)
[2022-01-13] VITALS (94 sets, daily range): BP systolic 33–220; BP diastolic 17–170; PULSE 67–210; RESP 4–37; TEMP 36.6–36.8; O2SAT 83–97; BMI 49.5
[2022-01-13 00:30] LABS: Troponin I < 50 ng/L (<or=60)
[2022-01-13] MEDS: Albuterol/Ipratropium 3 ML UPD VIAL UPD ×2 (01:00→05:37)
[2022-01-13 01:14] LABS: Bilirubin Negative (Negative); Blood Moderate (Negative); Clarity Clear (Clear); Glucose 250 mg/dL (Negative); Ketones Negative (Negative); Leukocyte Esterase Negative (Negative); Nitrite Negative (Negative)
[2022-01-13 01:24] LABS: Bacteria Few HPF (Negative); C & S Indicated? No; Casts 3-5 Hyaline LPF (Negative); Crystals Negative HPF (Negative); Epithelial Cells Many HPF (Negative); Mucus Trace (Negative); WBC 0-2 HPF (0-5)
[2022-01-13] MEDS: Insulin Aspart 300 UNITS/3 ML PEN SC ×4 (02:26→17:52)
[2022-01-13] MEDS: Normal Saline Flush 10 ML SYR IVP ×3 (02:30→21:17)
[2022-01-13 04:43] LABS: HCT 18.6 % (36.0-46.0)
[2022-01-13 04:46] LABS: Glucose 420 mg/dL (74-106)
--- NOTE | 2022-01-13 05:33 | W.EVENT ---
Date of service: 01/13/22 Time of Service: 05:34 Event Note: Called for Hct 18. patient admitted last night with weakness and GI bleed, Hct 29 at time. Denies abdominal pain. On exam Bp 116/58, pulse 93, abdomen soft and NT A/P: Substantial ongoing GI bleeding. BP dropping but satisfactory at present. Will transfuse 3 unit pRBC, hold Lisinopril and Lopressor, place NPO and consult surgery for EGD. Reviewed need for transfusion and patient consents. Time Spent with Patient Time spent in critical care(minutes): 25 Time Spent Included: Documenting critically ill care, Time at immediate bedside, Discussing critically ill care with other medical staff and Other
[2022-01-13] MEDS: methylPREDNISolone SUCC 40 MG VIAL IVP ×3 (05:38→21:17)
--- NOTE | 2022-01-13 05:39 | W.EVENT ---
Date of service: 01/13/22 Time of Service: 05:39 Event Note: Called for Hct 18. Admitted last night with weakness and GI bleed. Hct 29 at time. On exam BP 118/49, pulse 93, abdomen soft and NT. A/P: Substantial ongoing GI bleeding. Blood pressure has dropped but remains satisfactory at present.Will transfuse 3 units pRBC (reviewed with patient, consents), hold DARCI and beta bernardo, place NPO and consult surgery for EGD. Time Spent with Patient Time spent in critical care(minutes): 20 Time Spent Included: Documenting critically ill care, Time at immediate bedside and Discussing critically ill care with other medical staff
[2022-01-13] MEDS: Normal Saline 1,000 ML 75 ML IV (06:37)
--- NOTE | 2022-01-13 07:10 | SCONE_ITS ---
Date of service: 01/13/22 Time of Service: 07:10 Assessment and Plan Assessment and plan (1) Anemia: Status: Chronic Assessment and plan: 71 year old with multiple medical issues who is admitted with anemia. per patient has had some very dark/black stools. Patients Hgb down to 6, awaiting blood transfusion Possible EGD later today if we can get her HGB up and her BP up a little EGD discussed with the patient as well as the risks, benefits and complications (2) COPD (chronic obstructive pulmonary disease): Status: Chronic Qualifiers: COPD type: emphysema Emphysema type: centrilobular Qualified Code(s): J43.2 - Centrilobular emphysema (3) Diabetes mellitus: Qualifiers: Diabetes mellitus type: type 2 Diabetes mellitus [facility] insulin use: without [facility] use Diabetes mellitus complication status: without complication Qualified Code(s): E11.9 - Type 2 diabetes mellitus without complications History of Present Illness Narrative: Mrs bobby is a pleasant 71 year old female with multiple chronic medical conditions including hx of CHF, COPD on O2, and HTN who came to the ED complaining of weakness. Her Hgb was low on admission. Recheck at 430 showed a decrease of her Hgb to 6.9. She also has a history of resent admission for COVID and pnuemonia (early November). She still is testing Positive but her SOB is most likely secondary to her anemia and Hx of COPD. Awaiting blood transfusion. She does describe some dark/black stools over the last few weeks. She was resently started on apixiban. Consults Consult date: 01/13/22 Requesting physician: Guy Harmon Review of Systems Constitutional Constitutional: Denies fever(s), Denies headache(s) and Denies weight loss ENT Ears, Nose, Mouth, and Throat: Denies headache(s) Cardiovascular Cardiovascular: Denies chest pain, Denies chest pain at rest, Denies irregular heart rhythm, Denies palpitations, Reports dyspnea and Reports dyspnea on exer tion Respiratory Respiratory: Reports dyspnea and Reports dyspnea on exertion Gastrointestinal Gastrointestinal: Reports as per HPI Genitourinary Genitourinary: Reports system reviewed and no additional complaints, except as documented Musculoskeletal Musculoskeletal: Reports system reviewed and no additional complaints, except as documented Integumentary/Breasts Skin/Breast: Reports system reviewed and no additional complaints, except as documented Neurologic Neurologic: Denies headache(s) Endocrine Endocrine: Denies palpitations PFSH All Active Problems Anemia (Chronic) General weakness (Acute) Pleural effusion (Acute) Discharge planning issues (Acute) Tobacco abuse (Chronic) Depression (Chronic) Hypertension (Chronic) Dental abscess (Acute) COPD (chronic obstructive pulmonary disease) (Chronic) Personal history of nicotine dependence (Acute) Traumatic injury of left lower extremity (Acute) Rhabdomyolysis (Acute) Right ankle injury (Acute) Anemia (Chronic) Medical History CKD (chronic kidney disease) stage 3, GFR 30-59 ml/min Pt. denies Diabetes mellitus Diabetes mellitus 10/21/21 [facility] visit not well controlled, A1C 8.2 Discharge planning issues On supplemental oxygen therapy on O2 of night. Is able to lay flat Surgical History Hx of hernia repair Social History Smoking/Tobacco Use Status: Former Tobacco Use Quit Date: 03/23/18 Smoking risk assessment performed?: Yes Alcohol Intake: current Alcohol Intake frequency: holidays/special occasions only Drug use: Never Substance use type: does not use Do you feel safe at home: Yes Do you feel safe in your relationship?: Yes Exam Const General: comfortable and no acute distress HENMT Head: normocephalic and atraumatic Resp Effort & Inspection: normal respiratory effort Auscultation: clear to auscultation bilaterally Cardio Rate: regular rate Rhythm: regular rhythm GI Palpation: soft, no hepatosplenomegaly and nontender Results Last Vital Signs Temp 98.1 F 01/13/22 05:35 Pulse 94 H 01/13/22 05:37 Resp 20 01/13/22 05:35 BP 116/58 L 01/13/22 05:35 Pulse Ox 95 01/13/22 05:37 Labs Result diagrams: 01/13/22 04:24 01/13/22 04:24 Labs: Laboratory Results - last 24 hr 01/12/22 01/12/22 01/12/22 20:55 20:55 20:55 WBC 10.05 RBC 3.07 L Hgb 9.6 L Hct 29.7 L MCV 97 H MCH 31.3 MCHC 32.3 RDW 15.1 H Plt Count 304 MPV 8.8 Immature Gran % 1.0 Neutrophils % 85.6 Lymphocytes % 5.8 Monocytes % 6.5 Eosinophils % 0.9 Basophils % 0.2 Nucleated RBC % 0.0 Absolute Neutrophils 8.61 H Absolute Lymphocytes 0.58 L Absolute Monocytes 0.65 Absolute Eosinophils 0.09 Absolute Basophils 0.02 PT INR APTT VBG pH VBG pCO2 VBG pO2 VBG HCO3 VBG Total CO2 VBG O2 Saturation VBG Base Excess Sodium 136 Potassium 4.0 Chloride 95 L Carbon Dioxide 38.7 H Anion Gap 2.3 L BUN 20 H Creatinine 1.4 H Est GFR (CKD-EPI 2020) 40.73 Glucose 398 H Calcium 8.7 Magnesium 1.4 L Total Bilirubin 1.2 H AST 25 ALT 23 Alkaline Phosphatase 86 Troponin I < 50 NT-Pro-B Natriuret Pep 2291 H Total Protein 6.5 Albumin 2.0 L Urine Color Urine Clarity Urine pH Ur Specific [place] Urine Protein Urine Ketones Urine Blood Urine Nitrite Urine Bilirubin Urine Urobilinogen Ur Leukocyte Esterase Urine RBC Urine WBC Ur Epithelial Cells Urine Crystals Urine Bacteria Urine Casts Urine Mucus Ur Culture Indicated? Urine Glucose Fluid Glucose COVID-19 Source Nasal/Nares SARS-CoV-2 (PCR) POSITIVE A* Patient ABO/Rh Antibody Screen Crossmatch 01/12/22 01/12/22 01/13/22 20:55 20:55 00:09 WBC RBC Hgb Hct MCV MCH MCHC RDW Plt Count MPV Immature Gran % Neutrophils % Lymphocytes % Monocytes % Eosinophils % Basophils % Nucleated RBC % Absolute Neutrophils Absolute Lymphocytes Absolute Monocytes Absolute Eosinophils Absolute Basophils PT 10.3 INR 1.0 APTT 32.8 H VBG pH 7.38 VBG pCO2 68 H* VBG pO2 31 VBG HCO3 41 H VBG Total CO2 38 H VBG O2 Saturation 56 VBG Base Excess > 15 H Sodium Potassium Chloride Carbon Dioxide Anion Gap BUN Creatinine Est GFR (CKD-EPI 2020) Glucose Calcium Magnesium Total Bilirubin AST ALT Alkaline Phosphatase Troponin I < 50 NT-Pro-B Natriuret Pep Total Protein Albumin Urine Color Urine Clarity Urine pH Ur Specific [place] Urine Protein Urine Ketones Urine Blood Urine Nitrite Urine Bilirubin Urine Urobilinogen Ur Leukocyte Esterase Urine RBC Urine WBC Ur Epithelial Cells Urine Crystals Urine Bacteria Urine Casts Urine Mucus Ur Culture Indicated? Urine Glucose Fluid Glucose COVID-19 Source SARS-CoV-2 (PCR) Patient ABO/Rh Antibody Screen Crossmatch 01/13/22 01/13/22 01/13/22 00:45 04:05 04:08 WBC RBC Hgb Hct MCV MCH MCHC RDW Plt Count MPV Immature Gran % Neutrophils % Lymphocytes % Monocytes % Eosinophils % Basophils % Nucleated RBC % Absolute Neutrophils Absolute Lymphocytes Absolute Monocytes Absolute Eosinophils Absolute Basophils PT INR APTT VBG pH VBG pCO2 VBG pO2 VBG HCO3 VBG Total CO2 VBG O2 Saturation VBG Base Excess Sodium Potassium Chloride Carbon Dioxide Anion Gap BUN Creatinine Est GFR (CKD-EPI 2020) Glucose Cancelled Calcium Magnesium Total Bilirubin AST ALT Alkaline Phosphatase Troponin I NT-Pro-B Natriuret Pep Total Protein Albumin Urine Color Yellow Urine Clarity Clear Urine pH 6.0 Ur Specific [place] 1.020 Urine Protein Negative Urine Ketones Negative Urine Blood Moderate H Urine Nitrite Negative Urine Bilirubin Negative Urine Urobilinogen 1.0 H Ur Leukocyte Esterase Negative Urine RBC 5-10 H Urine WBC 0-2 Ur Epithelial Cells Many Urine Crystals Negative Urine Bacteria Few Urine Casts 3-5 Hyaline Urine Mucus Trace Ur Culture Indicated? No Urine Glucose 250 H Fluid Glucose Cancelled COVID-19 Source SARS-CoV-2 (PCR) Patient ABO/Rh Antibody Screen Crossmatch 01/13/22 01/13/22 01/13/22 04:24 04:24 05:34 WBC RBC Hgb 6.0 L* D Hct 18.6 L* MCV MCH MCHC RDW Plt Count MPV Immature Gran % Neutrophils % Lymphocytes % Monocytes % Eosinophils % Basophils % Nucleated RBC % Absolute Neutrophils Absolute Lymphocytes Absolute Monocytes Absolute Eosinophils Absolute Basophils PT INR APTT VBG pH VBG pCO2 VBG pO2 VBG HCO3 VBG Total CO2 VBG O2 Saturation VBG Base Excess Sodium Potassium Chloride Carbon Dioxide Anion Gap BUN Creatinine Est GFR (CKD-EPI 2020) Glucose 420 H Calcium Magnesium Total Bilirubin AST ALT Alkaline Phosphatase Troponin I NT-Pro-B Natriuret Pep Total Protein Albumin Urine Color Urine Clarity Urine pH Ur Specific [place] Urine Protein Urine Ketones Urine Blood Urine Nitrite Urine Bilirubin Urine Urobilinogen Ur Leukocyte Esterase Urine RBC Urine WBC Ur Epithelial Cells Urine Crystals Urine Bacteria Urine Casts Urine Mucus Ur Culture Indicated? Urine Glucose Fluid Glucose COVID-19 Source SARS-CoV-2 (PCR) Patient ABO/Rh O Positive Antibody Screen NEGATIVE Crossmatch See Detail
[2022-01-13 07:20] LABS: Glucose 470 mg/dL (74-106)
[2022-01-13 07:54] LABS: HCO3 (Venous) 40 mmol/L (23-28); O2 Sat (Venous) 71 %; TCO2 (Venous) 37 mmol/L (24-29); pCO2 (Venous) 58 mmHg (41-51); pH (Venous) 7.44 (7.31-7.41); pO2 (Venous) 37 mmHg
[2022-01-13 08:01] LABS: BE (Venous) > 15 mmol/L (-2-3)
[2022-01-13] MEDS: Nystatin POWDER 15 GM JAR TP ×3 (08:04→19:06)
[2022-01-13] MEDS: Amiodarone 200 MG TAB 400 MG PO (08:05)
[2022-01-13] MEDS: Escitalopram 20 MG TAB PO (08:06)
[2022-01-13 08:08] LABS: Anion Gap 2.4 mmol/L (3-11); BUN 24 mg/dL (7-18); CO2 38.6 mmol/L (21.0-32.0); CREATININE 1.5 mg/dL (0.55-1.02); Calcium 8.6 mg/dL (8.5-10.1); Chloride 95 mmol/L (98-107); Estimated GFR 37.49 (mL/min/1.73m2); Glucose 432 mg/dL (74-106); Potassium 3.9 mmol/L (3.5-5.1); Sodium 136 mmol/L (136-145)
--- NOTE | 2022-01-13 08:41 | PGE_ITS ---
Date of Service Date of service: 01/13/22 Time of Service: 08:42 Assessment and Plan Assessment and plan (1) GI bleeding: Status: Chronic Assessment and plan: probable UGI bleeding given her hx of black stools and heme positive rectal exam. Likely either corticosteroid and/or ASA associated ulcers or esophagitis given her sx of GERD. I have incr. her protonix to 40 mg IV q12h; will keep NPO; surgical consult has been obtained w/ Dr. Villaseñor (Dr. Harmon spoke w/ him) and Dr. Villaseñor saw the patient this morning. Patient needs resuscitation w/ transfusion of PRBC prior to going for EGD. I shanita recheck hemogram after 2nd unit and then decide whether or not she needs a third unit based on her hemodynamics, hemogram and whether or not she is actively bleeding. ASA and apixaban have been held. Will need to re-evaluate the need for either after she has had adequate treatment for source of her bleeding. Nevertheless, she will need to remain on PPI indefinitely and possible sucralfate as well depending on EGD findings. Critical care time spent interviewing and examining the patient, reviewing studies, discussing case with patient's nurse and consulting physicians was 45 minutes (2) Anemia: Status: Chronic Assessment and plan: acute blood loss anemia; treatment as above (3) COPD (chronic obstructive pulmonary disease): Status: Chronic Assessment and plan: continue home maintenance LABA/ICS/LAMA and prn albuterol MDI Qualifiers: COPD type: emphysema Emphysema type: centrilobular Qualified Code(s): J43.2 - Centrilobular emphysema (4) Diabetes mellitus: Assessment and plan: monitor glucose q4h and cover w/ SSI novolog; when able to take po then change to AC/HS Qualifiers: Diabetes mellitus type: type 2 Diabetes mellitus longterm insulin use: without adjunct faculty for medical terminology use Diabetes mellitus complication status: without complication Qualified Code(s): E11.9 - Type 2 diabetes mellitus without complications (5) CKD (chronic kidney disease) stage 3, GFR 30-59 ml/min: Assessment and plan: she appears to be at her baseline BUN and creatinine 24, 1.5 (6) SARS-CoV-2 positive: Status: Acute Assessment and plan: still testing positive for SARS-COV2 PCR however she had complete treatment w/ Remdesivir and CS last admission (12/16-12/28/21). CXR did not show pneumonic infiltrates but mild bibasilar atelectasis and small left pleural effusion. I will encourage her to use IS to prevent atelectasis, up out of bed as tolerated. No indication for treatment of her +PCR test but will keep in isolation for now until we see if she developes any specific signs/symptoms of COVID infection. When she left hospital last time she went home to family who had COVID. she should be considered for Evusheld given her risks for acute deterioration in setting of repeat infections however she ought to have her booster first then Evusheld couple weeks later. Subjective Subjective Interval history since last seen: Shira present to the hospital with about a week of progressive fatigue and generalized weakness along with dyspnea and symptoms of frequent belching and waterbrash. She has had no recent history of peptic ulcer disease she thinks she may have had an ulcer many years ago. She was not on a PPI however she was on aspirin and apixaban. She recently was diagnosed with paroxysmal atrial flutter and was recently started on amiodarone. She was hospitalized from 12/16/2021 through 12/28/2021 for treatment of COVID-pneumonia as well as her atrial flutter and community-acquired pneumonia. She completed 11 days of antibiotics and she was treated with high-dose steroids for her COVID-19 along with Remdesivir. She admits that she had some recent black appearing stools but no bloody stools no hematemesis and no abdominal pain. On discharge on 12/28/2021 she did not have any anemia. Hemoglobin was 13.2 g, hematocrit 39.2%. On admission last night her hemoglobin is 9.6 g hematocrit 29.7%. Which decl ined overnight to a hemoglobin of 6 g, hematocrit 18.6%. She denies any chest pain but feels generalized weakness and lightheadedness. Patient was hypotensive this morning at 95/68 and tachycardic with sinus tachycardia with heart rate in the 110s. Blood sugars elevated at 476 this morning. BUN/creatinine elevated 24 and 1.5. Her anion gap is low 2.4. Patient was admitted to the medical/surgical floor last night and the creative intern ordered 3 units of packed red cells. I have requested the patient be transferred to the intensive care unit for close monitoring and she will be transfused 2 units of packed red cells with a repeat H&H after the second unit. Blood sugars will be managed with sliding scale insulin and blood sugars to be checked every 6 hours. Surgical consultation was obtained with Dr. Villaseñor who saw the patient on the medical/surgical floor and we will plan for EGD once she is hemodynamically stabilized and has been transfused. Exam Narrative Exam Narrative: Shira is sitting up at the bedside, she is able to converse in paragraphs w/out dyspnea Obese body habitus Neck veins are flat Lungs: diffusely diminished but clear Heart: difficult to hear her heart tones d/t the air flow exchanger in the room as well as the poor quality stethoscope; however, rhythm is sinus tachycardia Abdomen: obese, soft, nontender Legs: obese, trace edema; hands w/ trace edema Objective Last Vital Signs Temp 36.8 C 01/13/22 08:36 Pulse 92 H 01/13/22 08:36 Resp 20 01/13/22 08:36 BP 95/68 L 01/13/22 08:36 Pulse Ox 93 01/13/22 08:36 Laboratory Results - last 24 hr 01/12/22 01/12/22 01/12/22 20:55 20:55 20:55 WBC 10.05 RBC 3.07 L Hgb 9.6 L Hct 29.7 L MCV 97 H MCH 31.3 MCHC 32.3 RDW 15.1 H Plt Count 304 MPV 8.8 Immature Gran % 1.0 Neutrophils % 85.6 Lymphocytes % 5.8 Monocytes % 6.5 Eosinophils % 0.9 Basophils % 0.2 Nucleated RBC % 0.0 Absolute Neutrophils 8.61 H Absolute Lymphocytes 0.58 L Absolute Monocytes 0.65 Absolute Eosinophils 0.09 Absolute Basophils 0.02 PT INR APTT VBG pH VBG pCO2 VBG pO2 VBG HCO3 VBG Total CO2 VBG O2 Saturation VBG Base Excess Sodium 136 Potassium 4.0 Chloride 95 L Carbon Dioxide 38.7 H Anion Gap 2.3 L BUN 20 H Creatinine 1.4 H Est GFR (CKD-EPI 2020) 40.73 Glucose 398 H Calcium 8.7 Magnesium 1.4 L Total Bilirubin 1.2 H AST 25 ALT 23 Alkaline Phosphatase 86 Troponin I < 50 NT-Pro-B Natriuret Pep 2291 H Total Protein 6.5 Albumin 2.0 L Urine Color Urine Clarity Urine pH Ur Specific [place] Urine Protein Urine Ketones Urine Blood Urine Nitrite Urine Bilirubin Urine Urobilinogen Ur Leukocyte Esterase Urine RBC Urine WBC Ur Epithelial Cells Urine Crystals Urine Bacteria Urine Casts Urine Mucus Ur Culture Indicated? Urine Glucose Fluid Glucose COVID-19 Source Nasal/Nares SARS-CoV-2 (PCR) POSITIVE A* Patient ABO/Rh Antibody Screen Crossmatch 01/12/22 01/12/22 01/13/22 20:55 20:55 00:09 WBC RBC Hgb Hct MCV MCH MCHC RDW Plt Count MPV Immature Gran % Neutrophils % Lymphocytes % Monocytes % Eosinophils % Basophils % Nucleated RBC % Absolute Neutrophils Absolute Lymphocytes Absolute Monocytes Absolute Eosinophils Absolute Basophils PT 10.3 INR 1.0 APTT 32.8 H VBG pH 7.38 VBG pCO2 68 H* VBG pO2 31 VBG HCO3 41 H VBG Total CO2 38 H VBG O2 Saturation 56 VBG Base Excess > 15 H Sodium Potassium Chloride Carbon Dioxide Anion Gap BUN Creatinine Est GFR (CKD-EPI 2020) Glucose Calcium Magnesium Total Bilirubin AST ALT Alkaline Phosphatase Troponin I < 50 NT-Pro-B Natriuret Pep Total Protein Albumin Urine Color Urine Clarity Urine pH Ur Specific [place] Urine Protein Urine Ketones Urine Blood Urine Nitrite Urine Bilirubin Urine Urobilinogen Ur Leukocyte Esterase Urine RBC Urine WBC Ur Epithelial Cells Urine Crystals Urine Bacteria Urine Casts Urine Mucus Ur Culture Indicated? Urine Glucose Fluid Glucose COVID-19 Source SARS-CoV-2 (PCR) Patient ABO/Rh Antibody Screen Crossmatch 01/13/22 01/13/22 01/13/22 00:45 04:05 04:08 WBC RBC Hgb Hct MCV MCH MCHC RDW Plt Count MPV Immature Gran % Neutrophils % Lymphocytes % Monocytes % Eosinophils % Basophils % Nucleated RBC % Absolute Neutrophils Absolute Lymphocytes Absolute Monocytes Absolute Eosinophils Absolute Basophils PT INR APTT VBG pH VBG pCO2 VBG pO2 VBG HCO3 VBG Total CO2 VBG O2 Saturation VBG Base Excess Sodium Potassium Chloride Carbon Dioxide Anion Gap BUN Creatinine Est GFR (CKD-EPI 2020) Glucose Cancelled Calcium Magnesium Total Bilirubin AST ALT Alkaline Phosphatase Troponin I NT-Pro-B Natriuret Pep Total Protein Albumin Urine Color Yellow Urine Clarity Clear Urine pH 6.0 Ur Specific [place] 1.020 Urine Protein Negative Urine Ketones Negative Urine Blood Moderate H Urine Nitrite Negative Urine Bilirubin Negative Urine Urobilinogen 1.0 H Ur Leukocyte Esterase Negative Urine RBC 5-10 H Urine WBC 0-2 Ur Epithelial Cells Many Urine Crystals Negative Urine Bacteria Few Urine Casts 3-5 Hyaline Urine Mucus Trace Ur Culture Indicated? No Urine Glucose 250 H Fluid Glucose Cancelled COVID-19 Source SARS-CoV-2 (PCR) Patient ABO/Rh Antibody Screen Crossmatch 01/13/22 01/13/22 01/13/22 04:24 04:24 05:34 WBC RBC Hgb 6.0 L* D Hct 18.6 L* MCV MCH MCHC RDW Plt Count MPV Immature Gran % Neutrophils % Lymphocytes % Monocytes % Eosinophils % Basophils % Nucleated RBC % Absolute Neutrophils Absolute Lymphocytes Absolute Monocytes Absolute Eosinophils Absolute Basophils PT INR APTT VBG pH VBG pCO2 VBG pO2 VBG HCO3 VBG Total CO2 VBG O2 Saturation VBG Base Excess Sodium Potassium Chloride Carbon Dioxide Anion Gap BUN Creatinine Est GFR (CKD-EPI 2020) Glucose 420 H Calcium Magnesium Total Bilirubin AST ALT Alkaline Phosphatase Troponin I NT-Pro-B Natriuret Pep Total Protein Albumin Urine Color Urine Clarity Urine pH Ur Specific [place] Urine Protein Urine Ketones Urine Blood Urine Nitrite Urine Bilirubin Urine Urobilinogen Ur Leukocyte Esterase Urine RBC Urine WBC Ur Epithelial Cells Urine Crystals Urine Bacteria Urine Casts Urine Mucus Ur Culture Indicated? Urine Glucose Fluid Glucose COVID-19 Source SARS-CoV-2 (PCR) Patient ABO/Rh O Positive Antibody Screen NEGATIVE Crossmatch See Detail 01/13/22 01/13/22 01/13/22 06:50 07:40 07:40 WBC RBC Hgb Hct MCV MCH MCHC RDW Plt Count MPV Immature Gran % Neutrophils % Lymphocytes % Monocytes % Eosinophils % Basophils % Nucleated RBC % Absolute Neutrophils Absolute Lymphocytes Absolute Monocytes Absolute Eosinophils Absolute Basophils PT INR APTT VBG pH 7.44 H VBG pCO2 58 H VBG pO2 37 VBG HCO3 40 H VBG Total CO2 37 H VBG O2 Saturation 71 VBG Base Excess > 15 H Sodium 136 Potassium 3.9 Chloride 95 L Carbon Dioxide 38.6 H Anion Gap 2.4 L BUN 24 H Creatinine 1.5 H Est GFR (CKD-EPI 2020) 37.49 Glucose 470 H 432 H Calcium 8.6 Magnesium Total Bilirubin AST ALT Alkaline Phosphatase Troponin I NT-Pro-B Natriuret Pep Total Protein Albumin Urine Color Urine Clarity Urine pH Ur Specific [place] Urine Protein Urine Ketones Urine Blood Urine Nitrite Urine Bilirubin Urine Urobilinogen Ur Leukocyte Esterase Urine RBC Urine WBC Ur Epithelial Cells Urine Crystals Urine Bacteria Urine Casts Urine Mucus Ur Culture Indicated? Urine Glucose Fluid Glucose COVID-19 Source SARS-CoV-2 (PCR) Patient ABO/Rh Antibody Screen Crossmatch
--- NOTE | 2022-01-13 08:53 | ANES.PREOP_ITS ---
General Info Date of Service Date Performed: 01/13/22 Height: 5 ft 4 in Weight: 130.9 kg Body Mass Index (BMI): 49.5 Surgical Procedure: Operation Date: 01/13/22 10:50 Proposed Procedure Side Surgeon p Gastroscopy Mary Mireles MD Meds Allergies and Home Medications Allergies Allergy/AdvReac Type Severity Reaction Status Date / Time codeine Allergy Mild Verified 01/12/22 21:48 fluticasone Allergy Mild Verified 01/12/22 21:48 [From Advair Diskus] salmeterol Allergy Mild Verified 01/12/22 21:48 [From Advair Diskus] Sulfa (Sulfonamide Allergy Mild Unknown Verified 01/12/22 21:48 Antibiotics) Home Medication Medication Instructions Recorded albuterol sulfate 90 mcg/actuation 2 puff inhalation Q6H PRN PRN 11/25/17 aerosol inhaler (ProAir HFA) aspirin 81 mg tablet,delayed 81 mg PO DAILY 11/25/17 release (Aspir-) cholecalciferol (vitamin D3) 50 2,000 unit PO DAILY 11/25/17 mcg (2,000 unit) capsule (Vitamin D3) cinnamon bark 500 mg capsule 1,000 mg PO DAILY 11/25/17 (Cinnamon) cyclobenzaprine 10 mg tablet 10 mg PO TID PRN PRN 11/25/17 escitalopram oxalate 20 mg tablet 20 mg PO DAILY 11/25/17 (Lexapro) glipizide 5 mg tablet, extended 5 mg PO BID 11/25/17 release 24 hr (Glucotrol XL) omega-3 fatty acids 1,000 mg 1,000 mg PO DAILY 11/25/17 capsule rosuvastatin 10 mg tablet (Crestor) 10 mg PO DAILY 11/25/17 nebulizers #1 ea 11/30/17 fluticasone fur. 100 mcg-umeclid 1 inh inhalation DAILY 09/30/20 62.5 mcg-vilant 25 mcg inhalat.powder (Trelegy Ellipta) Oxygen #1 ea 10/25/20 gabapentin 100 mg capsule 1 cap PO HS leg cramps 10/29/21 nicotine 10 mg inhalation 1 inh inhalation 4-6XD PRN 11/11/21 cartridge (Nicotrol) Inhaler, Assist Devices [Pocket 1 ea miscellaneous DIRECTED ##0 12/28/21 Chamber] amiodarone 200 mg tablet (Pacerone) 400 mg PO BID #90 tabs 12/28/21 apixaban 5 mg tablet (Eliquis) 5 mg PO BID #60 tabs 12/28/21 levalbuterol tartrate 45 2 puff inhalation Q4H PRN PRN #15 12/28/21 mcg/actuation aerosol inhaler grams lisinopril 10 mg tablet 5 mg PO DAILY #0 tabs 12/28/21 metoprolol succinate 50 mg 50 mg PO DAILY #30 tabs 12/28/21 tablet,extended release 24 hr tiotropium bromide 2.5 2 puff inhalation DAILY #4 grams 12/28/21 mcg/actuation mist for inhalation (Spiriva Respimat) Current Visit Medications: Current Medications Generic Name Dose Route Start Last Admin Trade Name Freq PRN Reason Stop Dose Admin Acetaminophen 650 mg 01/12/22 23:15 Acetaminophen 325 Mg Tab PO Q4H PRN PRN Albuterol Sulfate 2 puff 01/13/22 08:46 Albuterol Hfa 8 Gm 60 Puff Inh IH Q2H PRN PRN Albuterol/Ipratropium 1 puff 01/13/22 12:00 Ipratropium/Albuterol 4 Gm 120 Puff Inh IH QID [facility] Amiodarone HCl 400 mg 01/13/22 08:30 01/13/22 08:05 Amiodarone 200 Mg Tab PO 400 mg BID [facility] Administration Budesonide/Formoterol Fumarate 2 puff 01/13/22 08:30 Budesonide/Formoterol 80/4.5 6.9 Gm 60 Puff Inh IH BID [facility] Cyclobenzaprine HCl 10 mg 01/12/22 23:14 Cyclobenzaprine 10 Mg Tab PO TID PRN PRN Device 1 each 01/13/22 09:00 Inhaler, Assist Device MC DIRECTED [facility] Dextrose 0 gm 01/13/22 05:44 Glucose 40% Oral Solution 15 Gm/37.5 Gm Tube PO DIRECTED PRN Dextrose/Water 0 gm 01/12/22 23:11 Dextrose 50%-Water 25 Gm/50 Ml Syr IVP DIRECTED PRN Dextrose/Water 0 gm 01/13/22 05:44 Dextrose 50%-Water 25 Gm/50 Ml Syr IVP DIRECTED PRN Dimethicone/Zinc Oxide 0 gm 01/12/22 23:11 Eric Protect Cream 142 Gm Tube TP PRN PRN Escitalopram Oxalate 20 mg 01/13/22 08:30 01/13/22 08:06 Escitalopram 20 Mg Tab PO 20 mg DAILY ALEJANDRINA Administration Gabapentin 100 mg 01/13/22 22:00 Gabapentin 100 Mg Cap PO HS ALEJANDRINA Sodium Chloride 1,000 mls @ 75 mls/hr 01/13/22 05:45 01/13/22 06:37 Saline 1000ml Bag IV 75 mls/hr INFUSION ALEAJNDRINA Administration IV Miscellaneous Supplies 1 each 01/12/22 20:45 Iv Access IV DIRECTED [facility] Insulin Aspart 0 units 01/13/22 06:00 01/13/22 06:32 Insulin Aspart 300 Units/3 Ml Pen SC 9 units Q6H ALEJANDRINA Administration Protocol Lisinopril 5 mg 01/13/22 08:30 Lisinopril 10 Mg Tab PO DAILY [facility] Melatonin 6 mg 01/12/22 23:15 Melatonin 3 Mg Tab PO HS PRN Insomnia Methylprednisolone Sodium Succinate 40 mg 01/13/22 06:00 01/13/22 05:38 Methylprednisolone Succ 40 Mg Vial IVP 40 mg Q8H ALEJANDRINA Administration Metoprolol Succinate 50 mg 01/13/22 08:30 Metoprolol Cr 50 Mg Tabcr PO DAILY [facility] Nystatin 15 gm 01/13/22 08:30 01/13/22 08:04 Nystatin Powder 15 Gm Jar TP 1 applic TID ALEJANDRINA Administration Pantoprazole Sodium 40 mg 01/13/22 22:00 Pantoprazole 40 Mg Vial IVP HS [facility] Sodium Chloride 0 ml 01/12/22 20:34 01/13/22 05:39 Normal Saline Flush 10 Ml Syr IVP 10 ml PRN PRN Administration Tiotropium Belden 2 puff 01/13/22 08:30 Tiotropium Belden-Respimat 10 Puff Inh IH DAILY [facility] PFSH Active Problems Active Problems: Problem Status Onset Code Anemia D64.9 General weakness R53.1 Pleural effusion J90 Discharge planning issues Z02.9 Nuclear sclerotic cataract of left eye H25.12 Posterior subcapsular age-related cataract of left eye H25.042 Tobacco abuse Z72.0 Depression F32.9 Hypertension I10 Dental abscess K04.7 COPD (chronic obstructive pulmonary disease) J44.9 Personal history of nicotine dependence Z87.891 Traumatic injury of left lower extremity S89.92XA Rhabdomyolysis M62.82 Right ankle injury S99.911A Acute kidney injury N17.9 Anemia D64.9 Medical History Medical History CKD (chronic kidney disease) stage 3, GFR 30-59 ml/min Pt. denies Diabetes mellitus Diabetes mellitus 10/21/21 [facility] visit not well controlled, A1C 8.2 Discharge planning issues On supplemental oxygen therapy on O2 of night. Is able to lay flat Surgical History Surgical History Hx of hernia repair Tobacco Smoking/Tobacco Use Status: Former Tobacco Use Alcohol Alcohol Intake: current Alcohol intake frequency: holidays/special occasions only Substance Use Substance use: Never Substance use type: does not use Vital Signs and Lab Results Vital Signs Most Recent Vital Signs in EMR: Most Recent Vital Signs Temp Pulse Resp BP Pulse Ox 36.8 C 92 H 20 95/68 L 93 01/13/22 08:36 01/13/22 08:36 01/13/22 08:36 01/13/22 08:36 01/13/22 08:36 Point of Care Results Point of Care Results: Finger Stick Blood Glucose 476 01/13/22 06:32 Lab Results Result Diagrams: 01/13/22 04:24 01/13/22 07:40 Blood Type / Crossmatch: Patient ABO/Rh O Positive 01/13/22 Antibody Screen NEGATIVE 01/13/22 Crossmatch See Detail 01/13/22 Complete Blood Count: White Blood Count 10.05 10^3/uL (4.4-10.8) 01/12/22 20:55 Red Blood Count 3.07 10^6/uL (3.93-5.22) L 01/12/22 20:55 Hemoglobin 6.0 g/dL (11.2-15.7) L* 01/13/22 04:24 Hematocrit 18.6 % (36.0-46.0) L* 01/13/22 04:24 Platelet Count 304 10^3/uL (130-400) 01/12/22 20:55 Complete Metabolic Panel: Sodium 136 mmol/L (136-145) 01/13/22 07:40 Potassium 3.9 mmol/L (3.5-5.1) 01/13/22 07:40 Chloride 95 mmol/L (98-107) L 01/13/22 07:40 Carbon Dioxide 38.6 mmol/L (21.0-32.0) H 01/13/22 07:40 BUN 24 mg/dL (7-18) H 01/13/22 07:40 Creatinine 1.5 mg/dL (0.55-1.02) H 01/13/22 07:40 Est GFR (CKD-EPI 2020) 37.49 (mL/min/1.73m2) 01/13/22 07:40 Magnesium 1.4 mg/dL (1.8-2.4) L 01/12/22 20:55 Calcium 8.6 mg/dL (8.5-10.1) 01/13/22 07:40 Albumin 2.0 g/dL (3.4-5.0) L 01/12/22 20:55 Glucose 432 mg/dL (74-106) H 01/13/22 07:40 Hemoglobin A1c 9.2 % (<5.7) H 12/19/21 07:15 C-Reactive Protein 0.12 mg/dL (0.0-0.3) 12/28/21 05:18 Liver Function Panel: Alanine Aminotransferase (ALT/SGPT) 23 U/L (14-59) 01/12/22 20: 55 Aspartate Amino Transf (AST/SGOT) 25 U/L (15-37) 01/12/22 20:55 Coagulation Panel: INR International Normalized Ratio 1.0 (0.9-1.1) 01/12/22 20:5 5 Prothrombin Time 10.3 sec (9.3-11.0) 01/12/22 20:55 Activated Partial Thromboplast Time 32.8 sec (21.0-27.5) H 01/12/22 20:55 D-Dimer 536 ng/mlFEU (<500) H 12/26/21 07:30 Cardiac Panel: Troponin I < 50 ng/L (<or=60) 01/13/22 NT-Pro-B Natriuret Pep 2291 pg/mL (<300) H 01/12/22 Arterial Blood Gas: No Data to Display Venous Blood Gas: Venous Blood pH 7.44 (7.31-7.41) H 01/13/22 07:40 Venous Blood Partial Pressure O2 37 mmHg 01/13/22 07:40 Venous Blood Partial Pressure CO2 58 mmHg (41-51) H 01/13/22 07 :40 Venous Blood Oxygen Saturation 71 % 01/13/22 07:40 Venous Blood HCO3 40 mmol/L (23-28) H 01/13/22 07:40 Venous Blood Base Excess > 15 mmol/L (-2-3) H 01/13/22 07:40 Venous Blood Total Carbon Dioxide 37 mmol/L (24-29) H 01/13/22 07:40 Pancreas Panel: No Data to Display Thyroid Panel: Thyroid Stimulating Hormone (TSH) 0.97 uIU/mL (0.36-3.74) 12/24 20:23 Infectious Disease: Coronavirus (COVID-19)(PCR) POSITIVE (Negative) A* 01/12/22 20 :55 Coronavirus 2019 Source Nasal/Nares 01/12/22 20:55 Influenza Virus Type A (PCR) Negative (Negative) 12/16/21 16:0 0 Influenza Virus Type B (PCR) Negative (Negative) 12/16/21 16:0 0 Respiratory Syncytial Virus (PCR) Negative (Negative) 12/16/21 16:00 Blood Cultures: No Data to Display Toxicology Panel: Urine Amphetamines Screen Negative (Negative) 12/19/21 05:15 Urine Benzodiazepines Screen Negative (Negative) 12/19/21 05:1 5 Urine Barbiturates Screen Negative (Negative) 12/19/21 05:15 Urine Cocaine Screen Negative (Negative) 12/19/21 05:15 Urine Methadone Screen Negative (Negative) 12/19/21 05:15 Urine Opiates Screen Negative (Negative) 12/19/21 05:15 Ur Tricyclic Antidepressants Screen Positive (Negative) A 12/19/21 05:15 Ur Tetrahydrocannabinol (THC) Scrn Negative (Negative) 2 05:15 Imaging and Studies Imaging and Studies Study information below may be from another EMR and interpreted by another provider. Please see original notes in EMR for more complete details. EKG Summary: Conclusion Sinus rhythm...normal P axis, V-rate 60- 99 Probable left atrial enlargement...P >50mS, <-0.10mV V1 Right bundle branch block...QRSd>120, terminal axis(90,270) I have reviewed and interpreted ECG and agree with software generated interpretation. There are no significant changes compared to prior EKG performed on 11/24/2017 at 18:59. 12/27/20 Stress Test Summary: MPI Conclusion The ejection fraction was 58% with stress. There were no wall motion abnormalities. No evidence of ischemia on the imaging portion of the exam. This represents a normal SPECT stress test. 08/09/20 Echocardiogram Summary: Conclusion Left Ventricle : The left ventricle is normal size. Left ventricular systolic function is borderline.l. Mild concentric left ventricular hypertrophy. There is normal LV segmental wall motion. LVEF is 55%. Right Ventricle : Right ventricle is grossly normal in size. Right ventricular systolic function is grossly normal. Atria : The left atrium size is normal. The right atrium size is normal. Aortic Valve : Aortic valve is calcified. Number of aortic valve leaflets could not be assessed. No aortic regurgitation is present. No hemodynamically significant valvular aortic stenosis though interrogation of valve is in complete due to technical limitations.. Great Vessels : The aortic root is normal in size. The ascending aorta is mildly dilated. Aortic arch is not well visualized. IVC is normal in size and collapses >50% with inspiration. Compared to study from 10/22/2018, there did not appear to be any significant changes. The aortic valve mean gradient was previously measured at 20 mmHg though on today's technically limited study, the highest measured is is 10 mmHg. 07/17/20 Pulmonary Function Summary: INTERPRETATION SPIROMETRY: Spirometry shows severe obstructive airways disease with significant bronchodilator response. LUNG VOLUMES: Lung volumes show no evidence of restriction. DIFFUSION CAPACITY: Moderately reduced. AIRWAY RESISTANCE: Elevated. IMPRESSION: Severe obstructive airways disease with significant bronchodilator response. Clinical correlation recommended. 10/20/13 Anesthesia Assessment and Plan Anesthesia History Personal History: No History of Anesthesia Complications Family History: No Family History of Anesthesia Complications Exercise Tolerance Exercise Tolerance: Metabolic Equivalents<4 Cardiac & Pulmonary Exam Cardiac Exam: Normal S1/S2 Heart Sounds Pulmonary Exam: Other (diminished. ) Implantable Cardiac Device Does patient have a Pacemaker or an ICD?: No Airway Exam Known Difficult Airway: No Mallampati Class: 3 Mouth Opening: Narrow (< 3cm) (Current cheek infection also TMJ, minimal jaw opening) Thyromental Distance: Less than 3 cm Neck Range of Motion: Limited ROM Neck Circumference: Thick Teeth Condition: Generalized Poor Dentition (Broken teeth, none loose per patient) and Removable Dentures/Plates Upper (Upper partial) ASA Classification ASA Score: ASA 3 Emergency Case?: Yes NPO Status NPO Status: Full Stomach Anesthesia Plan Resuscitation Status: Full Code Anesthesia Technique: MAC Anesthesia Airway Planned: Natural Airway Monitors Used: Standard Monitors Preoperative Comments:: 71 yo female with ?GI bleed for EGD. Sig PMHx: BMI 50, COPD, RHONDA, HTN, depression, DM, O2 at night, former smoker (quit 2018), occ EtOH, afib RVR on last admission was started on amio. currently inpt, last hgb 6.0, has gotten PRBCs, states that she uses O2 at home for sleeping. Denies complications with anesthesia. Duiscussed options and she d oes not want topical anesthesia in her throat and does not like being put fully out. We discussed that we will go slow with med and that we will try ot get her to be able to be sedate, but able to follow commands. has been covid positve for the last months. was cathie
--- NOTE | 2022-01-13 08:53 | NUR.NOTE ---
Addendum entered by Joie Reynolds RN 01/13/22 08:55: Error to note below. Settled into room 219. Original Note: Nursing Note:Consent to receive blood obtained. Witness by Tiffanie Pal obtained, and blood product started. Patient transferred to ICU and settled into room 220.
[2022-01-13] MEDS: Budesonide/Formoterol 80/4.5 6.9 GM 60 PUFF INH IH ×2 (09:46→19:06)
[2022-01-13] MEDS: Tiotropium Bromide-Respimat 10 PUFF INH 2 PUFF IH (09:46)
--- NOTE | 2022-01-13 10:42 | PHACLINREV_ITS ---
Pharmacy Admission Review - Admission Clinical Review (Last Reviewed 01/13/22 @ 07:21 by Mary Mireles MD) SARS-CoV-2 positive (Acute) General weakness (Acute) Pleural effusion (Acute) codeine Allergy (Mild, Verified 01/12/22 21:48) fluticasone [From Advair Diskus] Allergy (Mild, Verified 01/12/22 21:48) salmeterol [From Advair Diskus] Allergy (Mild, Verified 01/12/22 21:48) Sulfa (Sulfonamide Antibiotics) Allergy (Mild, Verified 01/12/22 21:48) Unknown Resuscitation Status Full Code Height 5 ft 4 in Weight 130.9 kg - Renal Dosing Renal Dosing: BUN 24 mg/dL (7-18) H 01/13/22 07:40 Creatinine 1.5 mg/dL (0.55-1.02) H 01/13/22 07:40 Medications needing adjustments: Reviewed List of meds needing interventions: eCrCl 47 ml/min, current orders ok - Anticoagulation Anticoagulation: Hgb 6.0 g/dL (11.2-15.7) L* D 01/13/22 04:24 Hct 18.6 % (36.0-46.0) L* 01/13/22 04:24 Plt Count 304 10^3/uL (130-400) 01/12/22 20:55 INR 1.0 (0.9-1.1) 01/12/22 20:55 Creatinine 1.5 mg/dL (0.55-1.02) H 01/13/22 07:40 DVT Prophylaxis: N/A Therapeutic Anticoagulation: Reviewed (recently started on apixiban -- on hold due to active GI bleed) - Opiate Usage Evaluate Pain Scale/Pains Meds: N/A - Relevant Labs Sodium 136 mmol/L (136-145) 01/13/22 07:40 Potassium 3.9 mmol/L (3.5-5.1) 01/13/22 07:40 Chloride 95 mmol/L (98-107) L 01/13/22 07:40 Magnesium 1.4 mg/dL (1.8-2.4) L 01/12/22 20:55 Electrolytes, C-Reactive P, ESR: Reviewed - DM Control DM Control: Glucose 432 mg/dL (74-106) H 01/13/22 07:40 Finger Stick Blood Glucose 476 Finger Stick Blood Glucose 476 Finger Stick Blood Glucose 476 DM Control: Intervened (elevated glucose likely due to steroids -- started on lantus 20U QAM + 10U QPM during last admission but was not dc'd on it (d/t steroid use), she was also on a fixed 15U of aspart prior to meals plus sliding scale coverage - will review with MD during morning meeting) - Cardiac Review Cardiac Review: Troponin I < 50 ng/L (<or=60) 01/13/22 00:09 NT-Pro-B Natriuret Pep 2291 pg/mL (<300) H 01/12/22 20:55 BP, HR, EF%: Reviewed - Qtc Review QTc: Reviewed If Elevated, List meds needing intervention: QTc 624 on admission; on lexapro outpt for at least a year, will monitor for additional qt prolonging medications - IV to PO Switch IV Medications: Reviewed (NPO currently) - Home Meds Relevent Home Meds Not ordered & why?: all ordered except GAEL and DOAC; was discharged on 12/28 with an amiodarone taper (400 BID x10 days, 400 QD x14 days then 200mg daily thereafter... based on external rx info should be taking 400mg daily now until at least 01/21 then should be on 200mg daily starting 01/22, will notify MD) Medication adherence barriers identified?: Uses [facility] (mail order) so may need short supply from pharmacy and coordination with PCP upon discharge - Current meds Current Medication Order Review: Reviewed
--- NOTE | 2022-01-13 10:44 | PDOC.CMIN ---
- If Service Date Differs Date of service: 01/13/22 Time of Service: 10:44 Care Management Initial Assess REASON FOR HOSPITALIZATION:: GI Bleed PAST MEDICAL HISTORY/PAST SURGICAL HISTORY:: All Active Problems . General weakness (Acute). Pleural effusion (Acute). Discharge planning issues (Acute). Tobacco abuse (Chronic). Depression (Chronic). Hypertension (Chronic). Dental abscess (Acute). COPD (chronic obstructive pulmonary disease) (Chronic). Personal history of nicotine dependence (Acute). Traumatic injury of left lower extremity (Acute). Rhabdomyolysis (Acute). Right ankle injury (Acute). Anemia (Chronic). Medical History . CKD (chronic kidney disease) stage 3, GFR 30-59 ml/min. Pt. denies. Diabetes mellitus. Diabetes mellitus. 10/21/21 [facility] visit not well controlled, A1C 8.2. Discharge planning issues. On supplemental oxygen therapy. on O2 of night. Is able to lay flat. Surgical History . Hx of hernia repair PREVIOUS FUNCTIONAL STATUS/SOCIAL/FAMILY SUPPORTS:: Shira resides alone in [place], [place] with her two dogs; a boxer and a chihuahua. She has a daughter, Effie who resides in [place] and a Grandson, Camilo who resides in [place] as well as a healthy support network of friends per her report. 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 Shira is independent with all ADLs in the community. CURRENT FUNCTIONAL STATUS:: was unable to meet with Shira in person as she is on Covid isolation, nor could she be reached by phone. Efforts to contact her daughter and grandson were unsuccessful as well. Information documented is from the medical record and provider notes. Shira remains in the ICU and is being closely monitored and treated. She was admitted for profound weakness and was found to have a hematocrit of 10 and Hgb of 6.0. She has received 2 units of blood and is reportedly feeling better. ADVANCE DIRECTIVES:: none on file Has patient been provided with info about the portal/API?: Yes Did the patient sign up for the portal?: Yes (previously) CODE STATUS:: Full Code INSURANCE COVERAGE / FINANCIAL ISSUES:: AARP Medicare Replacement CURRENT HOME/COMMUNITY SERVICES/EQUIPMENT:: unknown PRIMARY CARE PHYSICIAN:: Liliam Noble POTENTIAL DISCHARGE NEEDS:: follow up with PCP and plan of care PATIENT/FAMILY EDUCATION NEEDS:: Review of discharge instructions, limitations, activity, follow up plan. [employer] TRANSPORTATION:: via private vehicle with family PLAN:: Anticipate that Shira will return home, possibly with new services. She will follow up with her PCP and plan of care and transport with family. CM will continue to offer support to Shira ad her discharge needs.
[2022-01-13] MEDS: Lactated Ringers 1,000 ML 30 ML IV (11:01)
--- NOTE | 2022-01-13 11:25 | W.PM.ENDDOP ---
Date of service: 01/13/22 Time of Service: 11:25 Endoscopy Report DATE OF PROCEDURE: 01/13/22 PRE-OP DIAGNOSIS: Upper GI bLeed/ anemia POST-OP DIAGNOSIS: other (anemia, thrush, gastritis) PROCEDURE: EGD SURGEON: Mary Mireles ANESTHESIA TYPE: General:No Airway ESTIMATED BLOOD LOSS: 0 PATHOLOGY: none sent COMPLICATIONS: None DISPOSITION: PACU INDICATIONS: 71 year old with multiple medical issues who is admitted with anemia. per patient has had some very dark/black stools. EGD discussed with the patient as well as the risks, benefits and complications FINDINGS: Mild inflammation of the antrum. No active bleeding Trush of the esophagus PROCEDURE DESCRIPTION: After informed consent was obtained the patient was take to the procedure room and placed in a supine position. Monitors were applied and a time out was done. The patients name, date of , procedure type, allergies to medications and metal in their body was reviewed. A bite block was placed and the patient was sedated. Once sedated and comfortable the gastroscope was advanced through the oropharynx which was grossly normal into the esophagus. The entire esophagus was coated in white. This looked like thrush. The scope was advanced into the stomach and through the pylorus into the 3rd portion of the duodenum. The duodenum was noted to be normal. The scope was retracted back into the stomach. There was no bleeding. There was some mild inflammation. There were no ulcers. The scope was retroflexed. The cardia and fundus were noted to be normal. There was no hiatal hernia noted. The scope was retracted back into the esophagus. The Z line was regular. The GE junction was at 35 cm. The scope was removed and the patient was woken up and taken back to [facility] in stable condition. No source of bleeding was identified
--- NOTE | 2022-01-13 11:58 | W.ANESPOSTOP ---
Postoperative Evaluation Date, Time and Location Date Performed: 01/13/22 Time Performed: 11:58 Patient Location: Intensive Care Unit Vital Signs Most Recent Imported Vital Signs: Most Recent Vital Signs Temp Pulse Resp BP Pulse Ox 36.7 C 87 22 123/61 91 L 01/13/22 09:42 01/13/22 09:31 01/13/22 09:42 01/13/22 09:42 01/13/22 09:42 Pain Score Most Recent Pain Score: Most Recent Pain Score Pain Level 4 01/13/22 09:42 Assessment Mental Status: Awake (Alert & Oriented to Patient Baseline) Airway and Respiratory Function: Patent airway with normal (patient baseline) respiratory exam Cardiovascular Function: Hemodynamically Stable Hydration Status: Adequately Hydrated Nausea & Vomiting: No Nausea or Vomiting Pain: Pt. Denies Any Pain Peripheral Nerve Block: Patient did not receive a nerve block Postoperative Comments:: pt back to ICU, on 4 LPM o2 sating 89%.
--- NOTE | 2022-01-13 11:59 | ANES.VASC_ITS ---
Midline Placement Date Performed: 01/13/22 Procedure Time: 11:40 Requesting Provider: Luciano Coleman Procedure Location: Other (P1) Sedation Given (Indicate Dose Given): No Sedation given Patient Mental Status: Awake Sterility: Hand Hygiene, Surgical Cap, Surgical Mask, Sterile Gloves and Chlorhexidine Laterality: Right Insertion Site: Cephalic Midline Device: PowerGlide Pro 18G Catheter Length: 10 cm Midline Procedure Procedure: 1% Lidocaine to skin and subcutaneous tissue with 2 5g needle and Vessel accessed with catheter over needle Dressing: Tegaderm Applied and Statlock Applied Blood Return: Present Flushes: Easily Ultrasound: Sterile probe cover and gel used Ultrasound Image Saved?: Yes Number of Attempts (See previous attempts in note section): 0 Procedure Tolerated: No Complications Procedure Outcome: Successful Performed By: Peter Hook
[2022-01-13] MEDS: Ipratropium/Albuterol 4 GM 120 PUFF INH IH ×3 (12:25→19:06)
[2022-01-13] MEDS: Pantoprazole 40 MG VIAL IVP (13:28)
[2022-01-13] MEDS: Nystatin 500000 UNITS/5 ML SUSP 5ML CUP PO ×2 (14:11→19:06)
[2022-01-13 16:29] LABS: HCT 30.4 % (36.0-46.0)
[2022-01-13] MEDS: Gabapentin 100 MG CAP PO (21:17)
[2022-01-14] VITALS (31 sets, daily range): BP systolic 103–167; BP diastolic 44–123; PULSE 72–108; RESP 17–29; TEMP 36.3–36.9; O2SAT 87–95; BMI 50.5
[2022-01-14] MEDS: Pantoprazole 40 MG VIAL IVP ×3 (00:01→23:48)
[2022-01-14] MEDS: Normal Saline Flush 10 ML SYR IVP ×4 (00:01→23:48)
[2022-01-14] MEDS: Insulin Aspart 300 UNITS/3 ML PEN SC ×4 (00:14→17:22)
[2022-01-14] MEDS: methylPREDNISolone SUCC 40 MG VIAL IVP (05:35)
[2022-01-14 06:05] LABS: Abs Immature Grans 0.07 10^3/uL (0.0-0.06); Absolute Basophil Count 0.01 10^3/uL (0.0-0.2); Absolute Lymphocyte Count 0.43 10^3/uL (1.2-3.4); Absolute Monocyte Count 0.31 10^3/uL (0.1-0.8); Absolute Neutrophil Count 9.72 10^3/uL (1.2-6.7); Basophils % 0.1; HCT 30.8 % (36.0-46.0); HGB 10.2 g/dL (11.2-15.7); Immature Grans % 0.7; Lymphocytes % 4.1; MCH 31.6 pg (27.0-33.0); MCHC 33.1 % (32.0-36.0); MCV 95 fL (80-95); MPV 8.8 fL (8.0-11.0); Monocytes % 2.9; Neutrophils % 92.2; Platelet Count 358 10^3/uL (130-400); RBC 3.23 10^6/uL (3.93-5.22); RDW 16.4 % (11.7-14.6); RDW-SD 54.2 fL; WBC 10.54 10^3/uL (4.4-10.8)
[2022-01-14 06:14] LABS: Anion Gap 2.7 mmol/L (3-11); BUN 29 mg/dL (7-18); CO2 38.3 mmol/L (21.0-32.0); CREATININE 1.4 mg/dL (0.55-1.02); Calcium 8.3 mg/dL (8.5-10.1); Chloride 96 mmol/L (98-107); Estimated GFR 40.73 (mL/min/1.73m2); Glucose 299 mg/dL (74-106); Potassium 3.1 mmol/L (3.5-5.1); Sodium 137 mmol/L (136-145)
[2022-01-14] MEDS: Budesonide/Formoterol 80/4.5 6.9 GM 60 PUFF INH IH ×2 (08:08→18:45)
[2022-01-14] MEDS: Ipratropium/Albuterol 4 GM 120 PUFF INH IH ×4 (08:09→18:45)
[2022-01-14] MEDS: Tiotropium Bromide-Respimat 10 PUFF INH 2 PUFF IH (08:09)
--- NOTE | 2022-01-14 08:13 | ANES.PREOP_ITS ---
General Info Date of Service Date Performed: 01/14/22 Height: 5 ft 4 in Weight: 133.4 kg Body Mass Index (BMI): 50.5 Surgical Procedure: Operation Date: 01/13/22 10:50 Proposed Procedure Side Surgeon p Gastroscopy Mary Mireles MD Actual Procedure Side Surgeon p Esophagogastroduodenoscopy Not Applicable Mary Mireles MD Pre-Op Diagnosis Post-Op Diagnosis GI BLEED THRUSH GASTRITIS Operation Date: 01/14/22 10:35 Proposed Procedure Side Surgeon p Colonoscopy Heather Perry, Meds Allergies and Home Medications Allergies Allergy/AdvReac Type Severity Reaction Status Date / Time codeine Allergy Mild Verified 01/12/22 21:48 fluticasone Allergy Mild Verified 01/12/22 21:48 [From Advair Diskus] salmeterol Allergy Mild Verified 01/12/22 21:48 [From Advair Diskus] Sulfa (Sulfonamide Allergy Mild Unknown Verified 01/12/22 21:48 Antibiotics) Home Medication Medication Instructions Recorded albuterol sulfate 90 mcg/actuation 2 puff inhalation Q6H PRN PRN 11/25/17 aerosol inhaler (ProAir HFA) aspirin 81 mg tablet,delayed 81 mg PO DAILY 11/25/17 release (Aspir-) cholecalciferol (vitamin D3) 50 2,000 unit PO DAILY 11/25/17 mcg (2,000 unit) capsule (Vitamin D3) cinnamon bark 500 mg capsule 1,000 mg PO DAILY 11/25/17 (Cinnamon) cyclobenzaprine 10 mg tablet 10 mg PO TID PRN PRN 11/25/17 escitalopram oxalate 20 mg tablet 20 mg PO DAILY 11/25/17 (Lexapro) glipizide 5 mg tablet, extended 5 mg PO BID 11/25/17 release 24 hr (Glucotrol XL) omega-3 fatty acids 1,000 mg 1,000 mg PO DAILY 11/25/17 capsule rosuvastatin 10 mg tablet (Crestor) 10 mg PO DAILY 11/25/17 nebulizers #1 ea 11/30/17 fluticasone fur. 100 mcg-umeclid 1 inh inhalation DAILY 09/30/20 62.5 mcg-vilant 25 mcg inhalat.powder (Trelegy Ellipta) Oxygen #1 ea 10/25/20 gabapentin 100 mg capsule 1 cap PO HS leg cramps 10/29/21 nicotine 10 mg inhalation 1 inh inhalation 4-6XD PRN 11/11/21 cartridge (Nicotrol) Inhaler, Assist Devices [Pocket 1 ea miscellaneous DIRECTED ##0 12/28/21 Chamber] amiodarone 200 mg tablet (Pacerone) 400 mg PO BID #90 tabs 12/28/21 apixaban 5 mg tablet (Eliquis) 5 mg PO BID #60 tabs 12/28/21 levalbuterol tartrate 45 2 puff inhalation Q4H PRN PRN #15 12/28/21 mcg/actuation aerosol inhaler grams lisinopril 10 mg tablet 5 mg PO DAILY #0 tabs 12/28/21 metoprolol succinate 50 mg 50 mg PO DAILY #30 tabs 12/28/21 tablet,extended release 24 hr tiotropium bromide 2.5 2 puff inhalation DAILY #4 grams 12/28/21 mcg/actuation mist for inhalation (Spiriva Respimat) Current Visit Medications: Current Medications Generic Name Dose Route Start Last Admin Trade Name Freq PRN Reason Stop Dose Admin Acetaminophen 650 mg 01/12/22 23:15 Acetaminophen 325 Mg Tab PO Q4H PRN PRN Albuterol Sulfate 2 puff 01/13/22 08:46 Albuterol Hfa 8 Gm 60 Puff Inh IH Q2H PRN PRN Albuterol/Ipratropium 1 puff 01/13/22 12:00 01/14/22 08:09 Ipratropium/Albuterol 4 Gm 120 Puff Inh IH 1 puffs QID [facility] Administration Amiodarone HCl 400 mg 01/14/22 08:30 Amiodarone 200 Mg Tab PO 01/20/22 23:59 DAILY ALEJANDRINA Amiodarone HCl 200 mg 01/21/22 08:30 Amiodarone 200 Mg Tab PO DAILY ALEJANDRINA Budesonide/Formoterol Fumarate 2 puff 01/13/22 08:30 01/14/22 08:08 Budesonide/Formoterol 80/4.5 6.9 Gm 60 Puff Inh IH 2 puffs BID ALEJANDRINA Administration Cyclobenzaprine HCl 10 mg 01/12/22 23:14 Cyclobenzaprine 10 Mg Tab PO TID PRN PRN Device 1 each 01/13/22 09:00 Inhaler, Assist Device MC DIRECTED [facility] Dextrose 0 gm 01/13/22 05:44 Glucose 40% Oral Solution 15 Gm/37.5 Gm Tube PO DIRECTED PRN Dextrose/Water 0 gm 01/13/22 05:44 Dextrose 50%-Water 25 Gm/50 Ml Syr IVP DIRECTED PRN Dimethicone/Zinc Oxide 0 gm 01/12/22 23:11 Eric Protect Cream 142 Gm Tube TP PRN PRN Escitalopram Oxalate 20 mg 01/13/22 08:30 01/13/22 08:06 Escitalopram 20 Mg Tab PO 20 mg DAILY ALEJANDRINA Administration Gabapentin 100 mg 01/13/22 22:00 01/13/22 21:17 Gabapentin 100 Mg Cap PO 100 mg HS ALEJANDRINA Administration Sodium Chloride 1,000 mls @ 75 mls/hr 01/13/22 05:45 01/14/22 04:00 Saline 1000ml Bag IV 75 mls/hr INFUSION [facility] Infusion Ringer's Solution 1,000 mls @ 30 mls/hr 01/13/22 11:30 01/13/22 15:00 IV 0 mls/hr INFUSION [facility] Infusion Micafungin Sodium 100 mg/ 100 mls @ 100 mls/hr 01/13/22 14:00 01/13/22 19:24 Sodium Chloride IVPB 01/20/22 13:59 Infused Q24H [facility] Infusion Potassium Chloride 20 meq in 100 mls @ 50 mls/hr 01/14/22 08:00 IVPB 01/14/22 11:59 Q2H [facility] IV Miscellaneous Supplies 1 each 01/12/22 20:45 Iv Access IV DIRECTED [facility] Insulin Aspart 0 units 01/13/22 06:00 01/14/22 05:59 Insulin Aspart 300 Units/3 Ml Pen SC 4 units Q6H ALEJANDRINA Administration Protocol Lisinopril 5 mg 01/14/22 08:30 Lisinopril 5 Mg Tab PO DAILY [facility] Melatonin 6 mg 01/12/22 23:15 Melatonin 3 Mg Tab PO HS PRN Insomnia Methylprednisolone Sodium Succinate 40 mg 01/13/22 06:00 01/14/22 05:35 Methylprednisolone Succ 40 Mg Vial IVP 40 mg Q8H ALEJANDRINA Administration Metoprolol Succinate 50 mg 01/13/22 08:30 Metoprolol Cr 50 Mg Tabcr PO DAILY [facility] Nystatin 15 gm 01/13/22 08:30 01/13/22 19:06 Nystatin Powder 15 Gm Jar TP 1 applic TID ALEJANDRINA Administration Nystatin 500,000 units 01/13/22 14:00 01/13/22 19:06 Nystatin 516465 Units/5 Ml Susp 5ml Cup PO 500,000 units TID ALEJANDRINA Administration Pantoprazole Sodium 40 mg 01/13/22 12:00 01/14/22 00:01 Pantoprazole 40 Mg Vial IVP 40 mg Q12H ALEJANDRINA Administration Sodium Chloride 0 ml 01/12/22 20:34 01/14/22 05:36 Normal Saline Flush 10 Ml Syr IVP 30 ml PRN PRN Administration Tiotropium [place] 2 puff 01/13/22 08:30 01/14/22 08:09 Tiotropium [place]-Respimat 10 Puff Inh IH 2 puffs DAILY ALEJANDRINA Administration PFSH Active Problems Active Problems: Problem Status Onset Code SARS-CoV-2 positive U07.1 GI bleeding K92.2 Anemia D64.9 General weakness R53.1 Pleural effusion J90 Discharge planning issues Z02.9 Nuclear sclerotic cataract of left eye H25.12 Posterior subcapsular age-related cataract of left eye H25.042 Tobacco abuse Z72.0 Depression F32.9 Hypertension I10 Dental abscess K04.7 COPD (chronic obstructive pulmonary disease) J44.9 Personal history of nicotine dependence Z87.891 Right ankle injury S99.911A Acute kidney injury N17.9 Anemia D64.9 Medical History Medical History CKD (chronic kidney disease) stage 3, GFR 30-59 ml/min Pt. denies Diabetes mellitus Diabetes mellitus 10/21/21 [facility] visit not well controlled, A1C 8.2 Discharge planning issues On supplemental oxygen therapy on O2 of night. Is able to lay flat Surgical History Surgical History Hx of hernia repair Tobacco Smoking/Tobacco Use Status: Former Tobacco Use Alcohol Alcohol Intake: current Alcohol intake frequency: holidays/special occasions o nly Substance Use Substance use: Never Substance use type: does not use Vital Signs and Lab Results Vital Signs Most Recent Vital Signs in EMR: Most Recent Vital Signs Temp Pulse Resp BP Pulse Ox 36.3 C L 82 19 118/99 H 92 10/25/22 04:39 01/14/22 04:39 01/14/22 04:39 01/14/22 04:39 01/14/22 04:39 Point of Care Results Point of Care Results: Finger Stick Blood Glucose 294 01/14/22 05:59 Lab Results Result Diagrams: 01/14/22 05:30 01/14/22 05:30 Blood Type / Crossmatch: Patient ABO/Rh O Positive 01/13/22 Antibody Screen NEGATIVE 01/13/22 Crossmatch See Detail 01/13/22 Complete Blood Count: White Blood Count 10.54 10^3/uL (4.4-10.8) 01/14/22 05:30 Red Blood Count 3.23 10^6/uL (3.93-5.22) L 01/14/22 05:30 Hemoglobin 10.2 g/dL (11.2-15.7) L 01/14/22 05:30 Hematocrit 30.8 % (36.0-46.0) L 01/14/22 05:30 Platelet Count 358 10^3/uL (130-400) 01/14/22 05:30 Complete Metabolic Panel: Sodium 137 mmol/L (136-145) 01/14/22 05:30 Potassium 3.1 mmol/L (3.5-5.1) L 01/14/22 05:30 Chloride 96 mmol/L (98-107) L 01/14/22 05:30 Carbon Dioxide 38.3 mmol/L (21.0-32.0) H 01/14/22 05:30 BUN 29 mg/dL (7-18) H 01/14/22 05:30 Creatinine 1.4 mg/dL (0.55-1.02) H 01/14/22 05:30 Est GFR (CKD-EPI 2020) 40.73 (mL/min/1.73m2) 01/14/22 05:30 Magnesium 1.4 mg/dL (1.8-2.4) L 01/12/22 20:55 Calcium 8.3 mg/dL (8.5-10.1) L 01/14/22 05:30 Albumin 2.0 g/dL (3.4-5.0) L 01/12/22 20:55 Glucose 299 mg/dL (74-106) H 01/14/22 05:30 Hemoglobin A1c 9.2 % (<5.7) H 12/19/21 07:15 C-Reactive Protein 0.12 mg/dL (0.0-0.3) 12/28/21 05:18 Liver Function Panel: Alanine Aminotransferase (ALT/SGPT) 23 U/L (14-59) 01/12/22 20: 55 Aspartate Amino Transf (AST/SGOT) 25 U/L (15-37) 01/12/22 20:55 Coagulation Panel: INR International Normalized Ratio 1.0 (0.9-1.1) 01/12/22 20:5 5 Prothrombin Time 10.3 sec (9.3-11.0) 01/12/22 20:55 Activated Partial Thromboplast Time 32.8 sec (21.0-27.5) H 01/12/22 20:55 D-Dimer 536 ng/mlFEU (<500) H 12/26/21 07:30 Cardiac Panel: Troponin I < 50 ng/L (<or=60) 01/13/22 NT-Pro-B Natriuret Pep 2291 pg/mL (<300) H 01/12/22 Arterial Blood Gas: No Data to Display Venous Blood Gas: Venous Blood pH 7.44 (7.31-7.41) H 01/13/22 07:40 Venous Blood Partial Pressure O2 37 mmHg 01/13/22 07:40 Venous Blood Partial Pressure CO2 58 mmHg (41-51) H 01/13/22 07 :40 Venous Blood Oxygen Saturation 71 % 01/13/22 07:40 Venous Blood HCO3 40 mmol/L (23-28) H 01/13/22 07:40 Venous Blood Base Excess > 15 mmol/L (-2-3) H 01/13/22 07:40 Venous Blood Total Carbon Dioxide 37 mmol/L (24-29) H 01/13/22 07:40 Pancreas Panel: No Data to Display Thyroid Panel: Thyroid Stimulating Hormone (TSH) 0.97 uIU/mL (0.36-3.74) 12/24 20:23 Infectious Disease: Coronavirus (COVID-19)(PCR) POSITIVE (Negative) A* 01/12/22 20 :55 Coronavirus 2019 Source Nasal/Nares 01/12/22 20:55 Influenza Virus Type A (PCR) Negative (Negative) 12/16/21 16:0 0 Influenza Virus Type B (PCR) Negative (Negative) 12/16/21 16:0 0 Respiratory Syncytial Virus (PCR) Negative (Negative) 12/16/21 16:00 Blood Cultures: No Data to Display Toxicology Panel: Urine Amphetamines Screen Negative (Negative) 12/19/21 05:15 Urine Benzodiazepines Screen Negative (Negative) 12/19/21 05:1 5 Urine Barbiturates Screen Negative (Negative) 12/19/21 05:15 Urine Cocaine Screen Negative (Negative) 12/19/21 05:15 Urine Methadone Screen Negative (Negative) 12/19/21 05:15 Urine Opiates Screen Negative (Negative) 12/19/21 05:15 Ur Tricyclic Antidepressants Screen Positive (Negative) A 12/19/21 05:15 Ur Tetrahydrocannabinol (THC) Scrn Negative (Negative) 2 05:15 Imaging and Studies Imaging and Studies Study information below may be from another EMR and interpreted by another provider. Please see original notes in EMR for more complete details. EKG Summary: Conclusion Sinus rhythm...normal P axis, V-rate 60- 99 Probable left atrial enlargement...P >50mS, <-0.10mV V1 Right bundle branch block...QRSd>120, terminal axis(90,270) I have reviewed and interpreted ECG and agree with software generated interpretation. There are no significant changes compared to prior EKG performed on 11/24/2017 at 18:59. 12/27/20 Stress Test Summary: MPI Conclusion The ejection fraction was 58% with stress. There were no wall motion abnormalities. No evidence of ischemia on the imaging portion of the exam. This represents a normal SPECT stress test. 08/09/20 Echocardiogram Summary: Conclusion Left Ventricle : The left ventricle is normal size. Left ventricular systolic function is borderline.l. Mild concentric left ventricular hypertrophy. There is normal LV segmental wall motion. LVEF is 55%. Right Ventricle : Right ventricle is grossly normal in size. Right ventricular systolic function is grossly normal. Atria : The left atrium size is normal. The right atrium size is normal. Aortic Valve : Aortic valve is calcified. Number of aortic valve leaflets could not be assessed. No aortic regurgitation is present. No hemodynamically significant valvular aortic stenosis though interrogation of valve is in complete due to technical limitations.. Great Vessels : The aortic root is normal in size. The ascending aorta is mildly dilated. Aortic arch is not well visualized. IVC is normal in size and collapses >50% with inspiration. Compared to study from 10/22/2018, there did not appear to be any significant changes. The aortic valve mean gradient was previously measured at 20 mmHg though on today's technically limited study, the highest measured is is 10 mmHg. 07/17/20 Pulmonary Function Summary: INTERPRETATION SPIROMETRY: Spirometry shows severe obstructive airways disease with significant bronchodilator response. LUNG VOLUMES: Lung volumes show no evidence of restriction. DIFFUSION CAPACITY: Moderately reduced. AIRWAY RESISTANCE: Elevated. IMPRESSION: Severe obstructive airways disease with significant bronchodilator response. Clinical correlation recommended. 10/20/13 Anesthesia Assessment and Plan Anesthesia History Personal History: No History of Anesthesia Complications Family History: No Family History of Anesthesia Complications Exercise Tolerance Exercise Tolerance: Metabolic Equivalents<4 Cardiac & Pulmonary Exam Cardiac Exam: Normal S1/S2 Heart Sounds Pulmonary Exam: Clear Bilateral Breath Sounds Implantable Cardiac Device Does patient have a Pacemaker or an ICD?: No Airway Exam Known Difficult Airway: No Mallampati Class: 3 Mouth Opening: Narrow (< 3cm) (Current cheek infection also TMJ, minimal jaw opening) Thyromental Distance: Less than 3 cm Neck Range of Motion: Limited ROM Neck Circumference: Thick Teeth Condition: Generalized Poor Dentition (Broken teeth, none loose per patient) and Removable Dentures/Plates Upper (Upper partial) ASA Classification ASA Score: ASA 3 Emergency Case?: No NPO Status NPO Status: NPO Clears >2 hours, Solids >8 hours Anesthesia Plan Resuscitation Status: Full Code Anesthesia Technique: General Anesthesia Airway Planned: Natural Airway Monitors Used: Standard Monitors Preoperative Comments:: 71 yo female with ?GI bleed for EGD. Sig PMHx: BMI 50, COPD, RHONDA, HTN, depression, DM, O2 at night, former smoker (quit 2019), EtOH, afib RVR on last admission was started on amio. Currently inpatient, last hgb now 10.0, has gotten PRBCs, states that she uses O2 at home for sleeping. Denies complications with anesthesia.
[2022-01-14] MEDS: POTASSIUM CHLORIDE 20 MEQ/100 ML BAG 50 MEQ IVPB ×2 (08:34→12:17)
[2022-01-14] MEDS: Nystatin POWDER 15 GM JAR TP ×2 (08:48→18:45)
[2022-01-14 09:07] LABS: Lab Add On Test DONE
[2022-01-14 09:19] LABS: Magnesium 1.8 mg/dL (1.8-2.4)
--- NOTE | 2022-01-14 09:53 | CMPROGNOTE_ITS ---
- If Service Date Differs Date of service: 01/14/22 Time of Service: 09:53 Care Management Progress Note S/O: Shira is currently being closely monitored in the ICU under Covid precautions. CM attempted to call Shira, and was not able to leave a voicemail, as it was full. Per RN, she had a colonoscopy today. Her Hb today is 10.2 and HCT is 30.8, which continues to improve. CM will continue to follow. A: Shira is a 71 year old female admitted to [facility] on 01/12/22 for weakness, GI bleed, COPD. P: Anticipate that Shira will return home, possibly with new services. She will follow up with her PCP and plan of care and transport with family. CM will continue to offer support to Shira ad her discharge needs.
--- NOTE | 2022-01-14 09:58 | W.PM.PROGNOT ---
Date of Service Date of service: 01/14/22 Time of Service: 09:58 Assessment and Plan Assessment and plan (1) GI bleeding: Status: Chronic Assessment and plan: likely LGI given her negative EGD. However, historically she reportedly had melena at home. If her c-scope is negative then she will need capsule endoscopy as outpatient. She does have yeast esophagitis for which she is on nystatin swish and swallow but also on micafungin Critical care time spent interviewing and examining the patient, reviewing studies, discussing case with patient's nurse and consulting physicians was 30 minutes (2) Anemia: Status: Chronic Assessment and plan: acute blood loss anemia; treatment as above stable. Hb today is 10.2 and HCT is 30.8. She remains on PPI (protonix 40 mg IV Q12h). I think that given she had no PUD on her EGD, the protonix can be decreased to once a day for her esophagitis and carafate can be added once she is taking PO today. She will need at least 14 days of treatment for her yeast esophagitis. (3) COPD (chronic obstructive pulmonary disease): Status: Chronic Assessment and plan: continue home maintenance LABA/ICS/LAMA and prn albuterol MDI. I do not feel that she is in an exacerbation and the methylprednisolone is not necessary. Qualifiers: COPD type: emphysema Emphysema type: centrilobular Qualified Code(s): J43.2 - Centrilobular emphysema (4) Diabetes mellitus: Assessment and plan: monitor glucose q4h and cover w/ SSI novolog; when able to take po then change to AC/HS. Sliding scale needs to be titrated up to resistant scale (currently only at sensitive scale) Qualifiers: Diabetes mellitus type: type 2 Diabetes mellitus intermediate accountant insulin use: without intermediate accountant use Diabetes mellitus complication status: without complication Qualified Code(s): E11.9 - Type 2 diabetes mellitus without complications (5) CKD (chronic kidney disease) stage 3, GFR 30-59 ml/min: Assessment and plan: she appears to be at her baseline BUN and creatinine 29, 1.4, however her potassium is low at 3.1 and she is receiving iv replacement. Once she is able to take po then I will put her liquid oral supplements; consider low dose spironolactone particularly if she requires lasix for her edema (6) SARS-CoV-2 positive: Status: Acute Assessment and plan: still testing positive for SARS-COV2 PCR however she had complete treatment w/ Remdesivir and CS last admission (12/16-12/28/21). CXR did not show pneumonic infiltrates but mild bibasilar atelectasis and small left pleural effusion. I will encourage her to use IS to prevent atelectasis, up out of bed as tolerated. No indication for treatment of her +PCR test but will keep in isolation for now until we see if she developes any specific signs/symptoms of COVID infection. When she left hospital last time she went home to family who had COVID. she should be considered for Evusheld given her risks for acute deterioration in setting of repeat infections however she ought to have her booster first then Evusheld couple weeks later. (7) Paroxysmal atrial flutter: Assessment and plan: patient remains on amiodarone however the loading dose should now be down to 400 mg daily through Jan.21 then she should be on 200 mg daily thereafter. Once her source of bleeding is determined and controlled then we will discuss resumption of Eliquis but w/out the aspirin. (8) Esophagitis: Status: Acute Assessment and plan: yeast esophagitis brought on by corticosteroids; I have stopped her solumedrol and she was put on Micafungin along w/ nystatin swish and swallow. she will need 2 weeks of treatment. Her amiodarone interacts w/ the Diflucan and therefore I chose Micafungin. Subjective Subjective Interval history since last seen: Patient complaining of bilateral hand and pedal edema. No CP now but had some discomfort earlier when iv potassium was infused. patient has had no overt bleeding overnight. EGD yesterday demonstrated yeast esophagitis but ulcers and no bleeding. Patient is going for C-scope this morning. Exam Narrative Exam Narrative: Shira is sitting up at the bedside getting ready to transfer onto a guerney to go to the OR. She is in no respiratory distress, alert and oriented Lungs: clear Heart: RRR Abdomen: obese, soft, nontender Extremities: edmea of her hands and 2+ edema of her feet and ankles and pretibial surfaces Objective Last Vital Signs Temp 36.6 C 01/14/22 08:53 Pulse 79 10/25/22 08:01 Resp 20 01/14/22 08:01 BP 167/91 H 01/14/22 08:01 Pulse Ox 92 01/14/22 08:01 Laboratory Results - last 24 hr 01/13/22 01/13/22 01/13/22 05:34 13:00 16:20 WBC RBC Hgb Cancelled 10.0 L D Hct Cancelled 30.4 L MCV MCH MCHC RDW Plt Count MPV Immature Gran % Neutrophils % Lymphocytes % Monocytes % Eosinophils % Basophils % Nucleated RBC % Absolute Neutrophils Absolute Lymphocytes Absolute Monocytes Absolute Eosinophils Absolute Basophils Sodium Potassium Chloride Carbon Dioxide Anion Gap BUN Creatinine Est GFR (CKD-EPI 2020) Glucose Calcium Magnesium Add-On Test Request Patient ABO/Rh O Positive Antibody Screen NEGATIVE Crossmatch See Detail 01/14/22 01/14/22 01/14/22 05:30 05:30 05:30 WBC 10.54 RBC 3.23 L Hgb 10.2 L Hct 30.8 L MCV 95 MCH 31.6 MCHC 33.1 RDW 16.4 H Plt Count 358 MPV 8.8 Immature Gran % 0.7 Neutrophils % 92.2 Lymphocytes % 4.1 Monocytes % 2.9 Eosinophils % 0.0 Basophils % 0.1 Nucleated RBC % 0.0 Absolute Neutrophils 9.72 H Absolute Lymphocytes 0.43 L Absolute Monocytes 0.31 Absolute Eosinophils 0.00 Absolute Basophils 0.01 Sodium 137 Potassium 3.1 L Chloride 96 L Carbon Dioxide 38.3 H Anion Gap 2.7 L BUN 29 H Creatinine 1.4 H Est GFR (CKD-EPI 2020) 40.73 Glucose 299 H Calcium 8.3 L Magnesium Add-On Test Request DONE Patient ABO/Rh Antibody Screen Crossmatch 01/14/22 05:30 WBC RBC Hgb Hct MCV MCH MCHC RDW Plt Count MPV Immature Gran % Neutrophils % Lymphocytes % Monocytes % Eosinophils % Basophils % Nucleated RBC % Absolute Neutrophils Absolute Lymphocytes Absolute Monocytes Absolute Eosinophils Absolute Basophils Sodium Potassium Chloride Carbon Dioxide Anion Gap BUN Creatinine Est GFR (CKD-EPI 2020) Glucose Calcium Magnesium 1.8 Add-On Test Request Patient ABO/Rh Antibody Screen Crossmatch
--- NOTE | 2022-01-14 10:41 | BOWEL_PTH ---
PATIENT: Shira Kelly LOC: U#:[id number] AGE/SX: 71/F ROOM: [id number] RE01/12/[address]: Guy Harmon : 1950 BED: A DIS: 01/23/2022 SPEC #: [id number] RECD: 01/14/22 12:48 STATUS: SOUT REQ #: [id number] LISA: 01/14/22 10:[address]: Guy Harmon DEPT: Surgical Specimen RECD BY: Angeles Veliz ENTERED: 01/14/22 12:49 SP TYPE: Bowel OTHR DR: TAMIKO Ford PA Anthony Campbell Cole,MD Easton Torres, MD Cindy Dale, HIS Noble,Liliam Grimes, Daphnie Garcia MD Leung,MD Barbra Morrow,MD Vicky Rausch,Heather Gonzalez, DO Tissues: 1 - BIOPSY BOWEL Procedures: GROSS AND MICRO LEVEL 4 Comments: [id number]
--- NOTE | 2022-01-14 11:22 | W.COLOREPORT ---
Date of service: 01/14/22 Time of Service: 11:28 Colonoscopy Report Date of procedure: 01/14/22 Pre-op diagnosis general: anemia/dark stools Post-op diagnosis procedure note: other (Severe diverticula of the sigmoid colon/hand diverticula/cecal polyps x3) Surgeon: Heather Perry Anesthesia Type: General:No Airway Estimated blood loss (mL): 2 Pathology: other Complications: None Disposition: ICU Prep: GoLYTELY Retraction Time: 15 mins Procedure Description: After informed consent was obtained the patient was taken to the procedure room and placed in a left decubitous position. Monitors were applied and a time out was done. The patients name, date of , procedure, allergies to medications and metal in their body was reviewed. The patient was then sedated. Once sedated and comfortable a rectal exam was done. She has internal and external hemorrhoids. The internal hemorrhoids are grade 3. There is a prolapsing ulcerated internal hemorrhoids X1 The scope was then introduced and retrofelexed. The scope was then advanced to the cecum w/ moderate difficulty. The TI and appendiceal orifice were identified. The prep was BB PS 3 in all segments for a total of 9. The scope was then slowly retracted over 15 minutes back into the rectum. She has severe diverticula of the sigmoid colon. There is no signs of active bleeding and infection. The diverticula do carry all the way over to the cecum. In the cecum she has 3 polyps. 1 polyp is a less than < 5 mm flat polyp that is removed with a cold biting forcep. Another polyp is a 0.75 cm flat polyp that is removed with 2 bites of a cold forcep. The other polyp is a 1.5 cm pedunculated polyp that is removed with a cold snare. A clip is placed over the defect. All specimen is retrieved and no bleeding is noted. The scope was removed and the patient was woken up and taken back to Same day surgery in stable condition. The patient tolerated the procedure well and there were no immediate complications. Follow up: The patient is a poor candidate for follow-up colonoscopy. I would not recommend 1 a repeat CE, unless she has continued issues with bleeding, or they develop changes in bowel habits or other new gastrointestinal complaints.
[2022-01-14] MEDS: Escitalopram 20 MG TAB PO (11:36)
[2022-01-14] MEDS: Amiodarone 200 MG TAB 400 MG PO (11:36)
[2022-01-14] MEDS: Nystatin 500000 UNITS/5 ML SUSP 5ML CUP PO ×3 (11:38→18:45)
--- NOTE | 2022-01-14 13:13 | NUR.NOTE ---
Remains afebrile with stable VS. To OR for colonoscopy tolerated well. Took clear liquid diet on return without incident. Nursing Note:
--- NOTE | 2022-01-14 13:34 | W.INDIABCONS ---
Date of service: 01/14/22 Time of Service: 13:34 Diabetes Inpatient Consult Reason for Visit: dm DESCRIPTION/ASSESSMENT: Shira was admitted to ICU with Covid PNA, anemia, GI bleed with PMH: Dm2, morbid obesity. Most recent A1C: 9.2% indicating poorly controlled Dm2. Home Dm meds: glipizide 5 mg Following diabetic diet with adequate intake. Not at nutritional risk. INTERVENTION: unable to meet with Shira due to covid precautions PLAN: Recommend referral to outpatient diabetes self management education. Time Spent in Nutritional Counseling and Treatment: 0
--- NOTE | 2022-01-14 13:54 | W.ANESPOSTOP ---
Postoperative Evaluation Date, Time and Location Date Performed: 01/14/22 Time Performed: 13:54 Patient Location: Intensive Care Unit Vital Signs Most Recent Imported Vital Signs: Most Recent Vital Signs Temp Pulse Resp BP Pulse Ox 36.6 C 108 H 19 142/123 H 87 L 01/14/22 08:53 01/14/22 12:03 01/14/22 12:03 01/14/22 12:03 01/14/22 12:03 Most Recent Vital Signs Temp Pulse Resp BP Pulse Ox 36.7 C 87 22 123/61 91 L 01/13/22 09:42 01/13/22 09:31 01/13/22 09:42 01/13/22 09:42 01/13/22 09:42 Pain Score Most Recent Pain Score: Most Recent Pain Score Pain Level 0 01/14/22 13:10 Assessment Mental Status: Awake (Alert & Oriented to Patient Baseline) Airway and Respiratory Function: Patent airway with normal (patient baseline) respiratory exam Cardiovascular Function: Hemodynamically Stable Hydration Status: Adequately Hydrated Nausea & Vomiting: No Nausea or Vomiting Pain: Pt. Denies Any Pain Peripheral Nerve Block: Patient did not receive a nerve block Postoperative Comments:: back to baseline exam.
--- NOTE | 2022-01-14 14:57 | NUR.NOTE ---
Blood drawn from right outer aspect A/C. Nursing Note:
[2022-01-14 16:26] LABS: Potassium 3.6 mmol/L (3.5-5.1)
[2022-01-14] MEDS: Furosemide 40 MG/4 ML VIAL IVP (16:43)
[2022-01-14] MEDS: Normal Saline 1,000 ML 75 ML IV (16:43)
[2022-01-14] MEDS: Potassium Chloride Liquid 20 MEQ PKT PO (18:46)
[2022-01-14] MEDS: Insulin Glargine 300 UNITS/3 ML PEN 10 UNITS SC (22:28)
[2022-01-14] MEDS: Gabapentin 100 MG CAP PO (22:28)
[2022-01-15] VITALS (10 sets, daily range): BP systolic 108–132; BP diastolic 56–69; PULSE 74–175; RESP 19–20; TEMP 36.4–36.9; O2SAT 90–96
[2022-01-15 06:50] LABS: Anion Gap 4.3 mmol/L (3-11); BUN 33 mg/dL (7-18); CO2 34.7 mmol/L (21.0-32.0); CREATININE 1.6 mg/dL (0.55-1.02); Calcium 8.4 mg/dL (8.5-10.1); Chloride 98 mmol/L (98-107); Glucose 212 mg/dL (74-106); Potassium 3.6 mmol/L (3.5-5.1); Sodium 137 mmol/L (136-145)
[2022-01-15 06:57] LABS: Abs Immature Grans 0.23 10^3/uL (0.0-0.06); Absolute Basophil Count 0.03 10^3/uL (0.0-0.2); Absolute Eosinophil Count 0.02 10^3/uL (0.0-0.7); Absolute Lymphocyte Count 1.44 10^3/uL (1.2-3.4); Absolute Monocyte Count 0.88 10^3/uL (0.1-0.8); Absolute Neutrophil Count 8.25 10^3/uL (1.2-6.7); Basophils % 0.3; Eosinophils % 0.2; HCT 30.1 % (36.0-46.0); Immature Grans % 2.1; Lymphocytes % 13.3; MCH 31.5 pg (27.0-33.0); MCHC 33.2 % (32.0-36.0); MCV 95 fL (80-95); MPV 8.7 fL (8.0-11.0); Monocytes % 8.1; Platelet Count 350 10^3/uL (130-400); RBC 3.17 10^6/uL (3.93-5.22); RDW 16.5 % (11.7-14.6); RDW-SD 54.6 fL; WBC 10.85 10^3/uL (4.4-10.8)
[2022-01-15] MEDS: Escitalopram 20 MG TAB PO (08:26)
[2022-01-15] MEDS: Lisinopril 5 MG TAB PO (08:26)
[2022-01-15] MEDS: Amiodarone 200 MG TAB 400 MG PO (08:26)
[2022-01-15] MEDS: Metoprolol CR 50 MG TABCR PO (08:26)
[2022-01-15] MEDS: Normal Saline Flush 10 ML SYR IVP (08:27)
[2022-01-15] MEDS: Potassium Chloride Liquid 20 MEQ PKT PO ×2 (08:27→14:46)
[2022-01-15] MEDS: Furosemide 40 MG/4 ML VIAL IVP (08:27)
[2022-01-15] MEDS: Nystatin 500000 UNITS/5 ML SUSP 5ML CUP PO ×3 (08:28→21:52)
[2022-01-15] MEDS: Insulin Aspart 300 UNITS/3 ML PEN SC ×4 (08:45→21:57)
[2022-01-15] MEDS: Ipratropium/Albuterol 4 GM 120 PUFF INH IH ×4 (09:39→22:01)
[2022-01-15] MEDS: Budesonide/Formoterol 80/4.5 6.9 GM 60 PUFF INH IH ×2 (09:39→22:02)
[2022-01-15] MEDS: Tiotropium Bromide-Respimat 10 PUFF INH 2 PUFF IH (09:40)
[2022-01-15] MEDS: Nystatin POWDER 15 GM JAR TP ×3 (09:40→22:00)
--- NOTE | 2022-01-15 10:05 | CMPROGNOTE_ITS ---
- If Service Date Differs Date of service: 01/15/22 Time of Service: 10:05 Care Management Progress Note S/O: Shira continues to be closely monitored. Per report, she states that she feels better, but is still edematous in hands and feet. She was placed on fluids overnight, which were dc'd today. She is on IV lasix for volume overload. CM has been unsuccessful in contacting Shira via phone, and she remains on covid precautions. CM will continue to follow. A: Shira is a 71 year old female admitted to [facility] on 01/12/22 for weakness, GI bleed, COPD. P: Anticipate that Shira will return home, possibly with new services. She will follow up with her PCP and plan of care and transport with family. CM will continue to offer support to Shira ad her discharge needs.
--- NOTE | 2022-01-15 14:03 | PGE_ITS ---
Date of Service Date of service: 01/15/22 Time of Service: 14:03 Assessment and Plan Assessment and plan (1) Volume overload: Status: Acute Assessment and plan: volume overload secondary to blood transfusions/iv fluid resuscitation. I have increased her lasix to 80 mg IV bid. we will need to re-assess her response to this w/ monitoring of urine output and BMP. She had an echocardiogram on 12/17 which showed normal LV and RV systolic function. Her diastology numbers were incomplete in that no recording was made of her e prime velocities. I am not sure whether or not she was in atrial fibrillation or flutter at the time her echo was done. She may have underlying HFPEF as she had borderline LVH. Spironolactone has been added to her regimen (2) GI bleeding: Status: Chronic Assessment and plan: patient presented w/ dark stool and was heme positive but has shown no signs/symptoms of bleeding since admission other than her Hb dropped on admission from 9.6 to 6 gm. Since transfusion she has been stable at 10 gm. I have decreased her Protonix from twice a day to once a day. She probably should remain on PPI if she resume her apixaban. I am concerned that her GI blood loss was from diverticular bleeding although none was seen on her c-scope yesterday. I think that her risk for re-bleeding are too high to resume her apixaban (3) Anemia: Status: Chronic Assessment and plan: as above. will put her on iron supplements and MVS (4) COPD (chronic obstructive pulmonary disease): Status: Chronic Assessment and plan: continue home maintenance LABA/ICS/LAMA and prn albuterol MDI. I do not feel that she is in an exacerbation and the methylprednisolone is not necessary. Qualifiers: COPD type: emphysema Emphysema type: centrilobular Qualified Code(s): J43.2 - Centrilobular emphysema (5) Diabetes mellitus: Assessment and plan: monitor glucose q4h and cover w/ SSI novolog; when able to take po then change to AC/HS. Sliding scale needs to be titrated up to resistant scale (currently only at sensitive scale). Blood sugars remain problematic. I have increased her lantus and put her on CHO coverage. 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 (7) SARS-CoV-2 positive: Status: Acute Assessment and plan: I will recheck her PCR as she was fully treated last admission. She tells me that she lives w/ her granddaughter who had a cold when the patient returned home but says she does not believe that she had COVID. (8) Paroxysmal atrial flutter: Assessment and plan: patient remains on amiodarone however the loading dose should now be down to 400 mg daily through Jan.21 then she should be on 200 mg daily thereafter. difficult decison regarding her anticoagulation, however, given the severity of her anemia and requirments for transfusion and her multiple sources for lower GI bleeding including polyps and multiple diverticuli, I think anticoagulation is more hazardous. (9) Esophagitis: Status: Acute Assessment and plan: patient on nystatin swish and swallow and micafungin. I will continue the micafungin while she is an inpatient as her other meds (citalopram and amiodarone interact w/ diflucan; incr. QTC). (10) Colon polyps: Status: Acute Assessment and plan: Dr. Perry advised against any follow up c-scope d/t her age and comorbiditiies (11) Diverticulosis: Status: Acute (12) Discharge planning issues: Status: Acute Assessment and plan: patient will return home w/ resumptions of home health services once she has diuresed to her euvolemic status. From GI bleeding/anemia standpoint she is s table Subjective Subjective Interval history since last seen: Patient overall feels better but still edematous in her hands and feet. She has been on iv lasix but the plodding machine operator put her on normal saline @ 75 mL/hr. I have dc'ed her iv fluids and increased her lasix to 80 mg IVP Q12h. Exam Narrative Exam Narrative: Patient sitting up in her chair eating lunch she is alert and oriented person pl rah time and circumstance. Lungs with bibasilar rales no rhonchi or wheezes Heart regular no appreciable murmur rub Abdomen obese soft and nontender Hands and feet with 2+ pitting edema Objective Last Vital Signs Temp 36.9 C 01/15/22 08:23 Pulse 76 01/15/22 08:39 Resp 19 01/15/22 08:23 BP 117/56 L 01/15/22 08:39 Pulse Ox 90 L 01/15/22 08:39 Laboratory Results - last 24 hr 01/14/22 01/15/22 01/15/22 14:45 05:45 05:45 WBC Cancelled RBC Cancelled Hgb Cancelled Hct Cancelled MCV Cancelled MCH Cancelled MCHC Cancelled RDW Cancelled Plt Count Cancelled MPV Cancelled Immature Gran % Cancelled Neutrophils % Cancelled Band Neutrophils % Cancelled Lymphocytes % Cancelled Atypical Lymphs % Cancelled Monocytes % Cancelled Eosinophils % Cancelled Basophils % Cancelled Metamyelocytes % Cancelled Myelocytes % Cancelled Promyelocytes % Cancelled Other Cells % Cancelled Nucleated RBC % Cancelled Absolute Neutrophils Cancelled Absolute Lymphocytes Cancelled Absolute Monocytes Cancelled Absolute Eosinophils Cancelled Absolute Basophils Cancelled RBC Morphology Cancelled Polychromasia Cancelled Hypochromasia Cancelled Poikilocytosis Cancelled Basophilic Stippling Cancelled Anisocytosis Cancelled Microcytosis Cancelled Macrocytosis Cancelled Spherocytes Cancelled Tear Drop Cells Cancelled Ovalocytes Cancelled Stomatocytes Cancelled [place] Bodies Cancelled Brittney Cells/Echinocytes Cancelled Acanthocytes (Spur) Cancelled Schistocytes Cancelled Sodium 137 Potassium 3.6 3.6 Chloride 98 Carbon Dioxide 34.7 H Anion Gap 4.3 BUN 33 H Creatinine 1.6 H Est GFR (CKD-EPI 2020) 34.70 Glucose 212 H Calcium 8.4 L 01/15/22 06:48 WBC 10.85 H RBC 3.17 L Hgb 10.0 L Hct 30.1 L MCV 95 MCH 31.5 MCHC 33.2 RDW 16.5 H Plt Count 350 MPV 8.7 Immature Gran % 2.1 Neutrophils % 76.0 Band Neutrophils % Lymphocytes % 13.3 Atypical Lymphs % Monocytes % 8.1 Eosinophils % 0.2 Basophils % 0.3 Metamyelocytes % Myelocytes % Promyelocytes % Other Cells % Nucleated RBC % 0.0 Absolute Neutrophils 8.25 H Absolute Lymphocytes 1.44 Absolute Monocytes 0.88 H Absolute Eosinophils 0.02 Absolute Basophils 0.03 RBC Morphology Polychromasia Hypochromasia Poikilocytosis Basophilic Stippling Anisocytosis Microcytosis Macrocytosis Spherocytes Tear Drop Cells Ovalocytes Stomatocytes [place] Bodies Brittney Cells/Echinocytes Acanthocytes (Spur) Schistocytes Sodium Potassium Chloride Carbon Dioxide Anion Gap BUN Creatinine Est GFR (CKD-EPI 2020) Glucose Calcium
[2022-01-15] MEDS: metOLazone 2.5 MG TAB 5 MG PO (19:50)
[2022-01-15] MEDS: Furosemide 80 MG TAB PO (19:50)
[2022-01-15 20:09] LABS: Source Nasal/Nares
[2022-01-15 20:46] LABS: COVID-19 PCR POSITIVE (Negative)
[2022-01-15] MEDS: Gabapentin 100 MG CAP PO (21:51)
[2022-01-15] MEDS: Ferrous Sulfate 325 MG TAB PO (21:51)
[2022-01-15] MEDS: Insulin Glargine 300 UNITS/3 ML PEN 15 UNITS SC (21:55)
[2022-01-16] VITALS (8 sets, daily range): BP systolic 74–110; BP diastolic 42–62; PULSE 78–90; RESP 16–18; TEMP 36.7–37; O2SAT 70–95
[2022-01-16 07:13] LABS: Abs Immature Grans 0.19 10^3/uL (0.0-0.06); Absolute Basophil Count 0.04 10^3/uL (0.0-0.2); Absolute Eosinophil Count 0.15 10^3/uL (0.0-0.7); Absolute Lymphocyte Count 1.25 10^3/uL (1.2-3.4); Absolute Monocyte Count 0.81 10^3/uL (0.1-0.8); Absolute Neutrophil Count 7.25 10^3/uL (1.2-6.7); Basophils % 0.4; Eosinophils % 1.5; HCT 35.2 % (36.0-46.0); HGB 11.5 g/dL (11.2-15.7); Lymphocytes % 12.9; MCH 31.8 pg (27.0-33.0); MCHC 32.7 % (32.0-36.0); MCV 97 fL (80-95); MPV 8.7 fL (8.0-11.0); Monocytes % 8.4; Neutrophils % 74.8; Platelet Count 424 10^3/uL (130-400); RBC 3.62 10^6/uL (3.93-5.22); RDW 16.1 % (11.7-14.6); RDW-SD 55.5 fL; WBC 9.69 10^3/uL (4.4-10.8)
[2022-01-16 07:51] LABS: Anion Gap 3.7 mmol/L (3-11); BUN 37 mg/dL (7-18); CO2 38.3 mmol/L (21.0-32.0); CREATININE 1.8 mg/dL (0.55-1.02); Calcium 8.9 mg/dL (8.5-10.1); Chloride 95 mmol/L (98-107); Estimated GFR 30.12 (mL/min/1.73m2); Glucose 255 mg/dL (74-106); Potassium 3.9 mmol/L (3.5-5.1); Sodium 137 mmol/L (136-145)
[2022-01-16] MEDS: Budesonide/Formoterol 80/4.5 6.9 GM 60 PUFF INH IH ×2 (09:10→19:28)
[2022-01-16] MEDS: Ipratropium/Albuterol 4 GM 120 PUFF INH IH ×3 (09:10→19:29)
[2022-01-16] MEDS: Tiotropium Bromide-Respimat 10 PUFF INH 2 PUFF IH (09:11)
[2022-01-16] MEDS: Nystatin 500000 UNITS/5 ML SUSP 5ML CUP PO ×4 (09:29→21:02)
[2022-01-16] MEDS: Pantoprazole 40 MG TABCR PO (09:30)
[2022-01-16] MEDS: Metoprolol CR 50 MG TABCR PO (09:30)
[2022-01-16] MEDS: Escitalopram 20 MG TAB PO (09:30)
[2022-01-16] MEDS: Multivitamin TAB 1 TAB PO (09:30)
[2022-01-16] MEDS: Ferrous Sulfate 325 MG TAB PO ×2 (09:30→19:27)
[2022-01-16] MEDS: Lisinopril 5 MG TAB PO (09:30)
[2022-01-16] MEDS: Amiodarone 200 MG TAB 400 MG PO (09:30)
[2022-01-16] MEDS: Nystatin POWDER 15 GM JAR TP ×3 (09:31→19:27)
[2022-01-16] MEDS: Insulin Aspart 300 UNITS/3 ML PEN SC ×6 (09:32→21:02)
[2022-01-16] MEDS: Furosemide 80 MG TAB PO (11:18)
--- NOTE | 2022-01-16 15:06 | W.ANESVAS ---
Midline Placement Date Performed: 01/16/22 Procedure Time: 14:15 Requesting Provider: Luciano Coleman Procedure Location: Med/Surg Sedation Given (Indicate Dose Given): No Sedation given Patient Mental Status: Awake Sterility: Hand Hygiene, Surgical Cap, Surgical Mask, Sterile Gloves, Sterile Drape/Sheet, N95 Mask and Chlorhexidine Laterality: Left Insertion Site: Basilic Midline Device: PowerGlide Pro 18G Catheter Length: 10 cm Midline Procedure Procedure: 1% Lidocaine to skin and subcutaneous tissue with 25g needle, Vessel accessed with catheter over needle, Guidewire placed with ease, Catheter placed without resistance and Guidewire removed Dressing: Tegaderm Applied and Statlock Applied Blood Return: Present Flushes: Easily Ultrasound: Sterile probe cover and gel used Ultrasound Image Saved?: Yes Number of Attempts (See previous attempts in note section): 2 Procedure Tolerated: No Complications and Patient tolerated well Procedure Outcome: Successful Procedure Comment:: Attempted 18g midline 10cm, no blood return, some extravasation on US. Removed and reattempted with success. Performed By: Guy Mcleod
[2022-01-16] MEDS: Lactated Ringers 250 ML IV (16:07)
--- NOTE | 2022-01-16 16:16 | PGE_ITS ---
Date of Service Date of service: 01/16/22 Time of Service: 16:16 Assessment and Plan Assessment and plan (1) Volume overload: Status: Acute Assessment and plan: CHFpEF. BP not tolerating IV diuresis. Holding furosemide as well as metoprolol and lisinopril. Would resume diuretics prior to resuming the other two agents. R/o DVT given BLE edema. If doppler negative, would start TEDS to help with edema as well. (2) GI bleeding: Status: Chronic Assessment and plan: While on anticoagluation. Evidence of fungal esophagitis on EGD as well as diverticulosis and three non-bleeding polyps on colonoscopy. Consider a small bowel bleed. I Think would benefit from a capsule endoscopy as outpatient. Continue to hold anticoagulation for now. (3) Anemia: Status: Chronic Assessment and plan: S/p xfusion of 2 units of pRBCs on this admission. H/H stable. As above. Qualifiers: Other causes of anemia: acute posthemorrhagic (4) COPD (chronic obstructive pulmonary disease): Status: Chronic Assessment and plan: Not in acute exacerbation. Continue LABA/ICS/LAMA and prn albuterol. Qualifiers: COPD type: emphysema Emphysema type: centrilobular Qualified Code(s): J43.2 - Centrilobular emphysema (5) Diabetes mellitus: Assessment and plan: Continue basal bolus insulin. Qualifiers: Diabetes mellitus type: type 2 Diabetes mellitus senior care insulin use: without senior care use Diabetes mellitus complication status: without complication Qualified Code(s): E11.9 - Type 2 diabetes mellitus without complications (6) CKD (chronic kidney disease) stage 3, GFR 30-59 ml/min: Assessment and plan: Cr slightly worse. Hold further diuresis and rah-i. Getting a gentle bolus of IVF. (7) SARS-CoV-2 positive: Status: Acute Assessment and plan: PCR remains positive. S/p tx on last admission. Will ensure no DVT. (8) Paroxysmal atrial flutter: Assessment and plan: Continue amiodarone. Hold metoprolol. Hold apixaban. (9) Esophagitis: Status: Acute Assessment and plan: Increase nystatin swish and swallow to 5x/daily. D/c micafungin. (10) Colon polyps: Status: Acute Assessment and plan: Not bleeding at time of colonoscopy. Surgery recommends against repeat colonoscopy given her age and comorbidities (11) Diverticulosis: Status: Acute Assessment and plan: No evidence of active bleeding. Consider this as a potential cause of GI bleeding. (12) Discharge planning issues: Status: Acute Assessment and plan: If BP stable, anticipate discharge home tomorrow Subjective Subjective Interval history since last seen: Ms Kelly feels dizzy when getting up and has been hypotensive this afternoon. Her last BP is 92/57. No bleeding reported. Denies chest pain, shortness of breath, nausea. States her legs have been more swollen for the last week. Exam Narrative Exam Narrative: General: Pleasant obese female who is on 2L of O2 by NC, A&Ox3, NAD HEENT: EOMI, MMM Heart: RRR, no m/r/g Lungs: CTAB Abdomen: soft, nontender, nondistended Extremities: 2+ pitting edema BLEs, symmetric Objective Last Vital Signs Temp 36.9 C 01/16/22 15:16 Pulse 87 01/16/22 15:16 Resp 18 01/16/22 15:16 BP 92/57 L 01/16/22 15:16 Pulse Ox 95 01/16/22 15:16 Laboratory Results - last 24 hr 01/15/22 01/16/22 01/16/22 20:00 05:35 05:35 WBC 9.69 RBC 3.62 L Hgb 11.5 Hct 35.2 L MCV 97 H MCH 31.8 MCHC 32.7 RDW 16.1 H Plt Count 424 H MPV 8.7 Immature Gran % 2.0 Neutrophils % 74.8 Lymphocytes % 12.9 Monocytes % 8.4 Eosinophils % 1.5 Basophils % 0.4 Nucleated RBC % 0.0 Absolute Neutrophils 7.25 H Absolute Lymphocytes 1.25 Absolute Monocytes 0.81 H Absolute Eosinophils 0.15 Absolute Basophils 0.04 Sodium Cancelled Potassium Cancelled Chloride Cancelled Carbon Dioxide Cancelled Anion Gap Cancelled BUN Cancelled Creatinine Cancelled Est GFR (CKD-EPI 2020) Cancelled Glucose Cancelled Calcium Cancelled COVID-19 Source Nasal/Nares SARS-CoV-2 (PCR) POSITIVE A* 01/16/22 05:35 WBC RBC Hgb Hct MCV MCH MCHC RDW Plt Count MPV Immature Gran % Neutrophils % Lymphocytes % Monocytes % Eosinophils % Basophils % Nucleated RBC % Absolute Neutrophils Absolute Lymphocytes Absolute Monocytes Absolute Eosinophils Absolute Basophils Sodium 137 Potassium 3.9 Chloride 95 L Carbon Dioxide 38.3 H Anion Gap 3.7 BUN 37 H Creatinine 1.8 H Est GFR (CKD-EPI 2020) 30.12 Glucose 255 H Calcium 8.9 COVID-19 Source SARS-CoV-2 (PCR)
--- NOTE | 2022-01-16 16:27 | PDOC.CMPRO ---
- If Service Date Differs Date of service: 01/16/22 Time of Service: 16:27 Care Management Progress Note S/O: Shira continues to be monitored under covid precautions. She was moved to med/surge today, as she continues to improve and is nearing discharge readiness. Her blood pressure has been low today, and she reports feeling dizzy with activity. Per report, her blood pressure is not tolerating the IV diuresis. She will start with TEDS today for her edema. CM will continue to follow. A: Nash is a 73 year old male admitted to [facility] on 01/13/22 for a stroke. P: Nash will return home once he is medically cleared. He will follow up with his PCP and discharge plan of care, and his will drive him home via private vehicle. CM will continue to follow.
[2022-01-16] MEDS: Gabapentin 100 MG CAP PO (21:02)
[2022-01-16] MEDS: Insulin Glargine 300 UNITS/3 ML PEN 15 UNITS SC (21:03)
[2022-01-17] VITALS (7 sets, daily range): BP systolic 82–112; BP diastolic 52–65; PULSE 58–88; RESP 12–20; TEMP 36.1–36.9; O2SAT 91–96
--- NOTE | 2022-01-17 | DI.US_ITS ---
Exam(s) US EXTREMITY VENOUS BI EXAM: US EXTREMITY VENOUS BI CLINICAL HISTORY: BLE edema, COVID-19, concern for DVT. TECHNIQUE: Bilateral lower extremity venous ultrasound performed using grayscale, color-flow, and sp ectral Doppler analysis. COMPARISON: No exams were available for comparison FINDINGS: The right common femoral, femoral and popliteal veins demonstrate normal compressibility, augmentatio n, and color Doppler. The posterior tibial veins are patent. The saphenofemoral junctions are unremar kable. There is no evidence of a Lema's cyst. The soft tissues are unremarkable. The left common femoral, femoral and popliteal veins demonstrate normal compressibility, augmentation , and color Doppler. The posterior tibial veins are patent. The saphenofemoral junctions are unremark able. There is no evidence of a Lema's cyst. There is a large complex fluid collection along the ant erior medial left thigh. It measures at least 19.6 cm long by 3.6 cm AP. IMPRESSION: 1. No evidence of a right lower extremity DVT. 2. No evidence of a left lower extremity DVT. 3. Complex fluid collection in the anterior medial thigh. This may represent a hematoma or seroma. Abscess cannot be entirely excluded. Please correlate with patient's clinical history. CT or MRI wi th contrast may be considered for further evaluation if clinically warranted. DATA REPOSITORY:
[2022-01-17] MEDS: Nystatin 500000 UNITS/5 ML SUSP 5ML CUP PO ×5 (05:21→21:41)
[2022-01-17] MEDS: Pantoprazole 40 MG TABCR PO (08:12)
[2022-01-17] MEDS: Amiodarone 200 MG TAB 400 MG PO (08:12)
[2022-01-17] MEDS: Multivitamin TAB 1 TAB PO (08:12)
[2022-01-17] MEDS: Ferrous Sulfate 325 MG TAB PO ×2 (08:12→19:26)
[2022-01-17] MEDS: Nystatin POWDER 15 GM JAR TP ×3 (08:12→19:31)
[2022-01-17] MEDS: Escitalopram 20 MG TAB PO (08:12)
[2022-01-17 08:28] LABS: Absolute Basophil Count 0.03 10^3/uL (0.0-0.2); Absolute Eosinophil Count 0.39 10^3/uL (0.0-0.7); Absolute Lymphocyte Count 1.06 10^3/uL (1.2-3.4); Absolute Monocyte Count 0.86 10^3/uL (0.1-0.8); Absolute Neutrophil Count 6.59 10^3/uL (1.2-6.7); Basophils % 0.3; Eosinophils % 4.3; HCT 32.6 % (36.0-46.0); HGB 10.7 g/dL (11.2-15.7); Immature Grans % 2.2; Lymphocytes % 11.6; MCH 31.3 pg (27.0-33.0); MCHC 32.8 % (32.0-36.0); MCV 95 fL (80-95); MPV 8.4 fL (8.0-11.0); Monocytes % 9.4; Neutrophils % 72.2; Platelet Count 349 10^3/uL (130-400); RBC 3.42 10^6/uL (3.93-5.22); RDW 16.1 % (11.7-14.6); RDW-SD 55.4 fL; WBC 9.13 10^3/uL (4.4-10.8)
[2022-01-17 08:48] LABS: Anion Gap -1.9 mmol/L (3-11); BUN 39 mg/dL (7-18); CO2 44.9 mmol/L (21.0-32.0); CREATININE 2.1 mg/dL (0.55-1.02); Calcium 8.8 mg/dL (8.5-10.1); Chloride 96 mmol/L (98-107); Estimated GFR 25.04 (mL/min/1.73m2); Glucose 128 mg/dL (74-106); Magnesium 1.4 mg/dL (1.8-2.4); Potassium 3.4 mmol/L (3.5-5.1); Sodium 139 mmol/L (136-145)
[2022-01-17] MEDS: Budesonide/Formoterol 80/4.5 6.9 GM 60 PUFF INH IH ×2 (09:23→19:28)
[2022-01-17] MEDS: Ipratropium/Albuterol 4 GM 120 PUFF INH IH ×4 (09:24→19:27)
[2022-01-17] MEDS: Tiotropium Bromide-Respimat 10 PUFF INH 2 PUFF IH (09:25)
[2022-01-17] MEDS: Potassium Chloride 20 MEQ TABCR 40 MEQ PO (09:33)
[2022-01-17] MEDS: MAGNESIUM SULFATE 4 GM/100 ML BAG IVPB (09:33)
--- NOTE | 2022-01-17 09:54 | CMPROGNOTE_ITS ---
- If Service Date Differs Date of service: 01/17/22 Time of Service: 09:55 Care Management Progress Note S/O: Shira remains on Covid precautions. Per report, her blood pressures have been low, specifically with activity. She had a BLE doppler to rule out edema yesterday. She will have TEDS ordered to help with the edema. 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 CM will continue to follow. A: Shira is a 71 year old female admitted to [facility] on 01/12/22 for weakness, GI bleed, COPD. P: Anticipate that Shira will return home, possibly with new services. She will follow up with her PCP and plan of care and transport with family. CM will continue to offer support to Shira ad her discharge needs.
[2022-01-17] MEDS: Insulin Aspart 300 UNITS/3 ML PEN SC ×5 (12:19→21:42)
--- NOTE | 2022-01-17 18:42 | PGE_ITS ---
Date of Service Date of service: 01/17/22 Time of Service: 17:50 Assessment and Plan Assessment and plan (1) Volume overload: Status: Acute Assessment and plan: CHFpEF. BP not tolerating IV diuresis. Holding furosemide as well as metoprolol and lisinopril. Decrease amiodarone to 200 mg daily and see if the new BP will tolerate reintroduction of diuretics. Would resume diuretics prior to resuming the other two agents. No DVT, per doppler. Start TEDS. (2) GI bleeding: Status: Chronic Assessment and plan: While on anticoagluation. Evidence of fungal esophagitis on EGD as well as diverticulosis and three non-bleeding polyps on colonoscopy. Consider a small bowel bleed. I Think would benefit from a capsule endoscopy as outpatient. Discussed with Dr Villaseñor. Continue to hold anticoagulation for now. (3) Anemia: Status: Chronic Assessment and plan: S/p xfusion of 2 units of pRBCs on this admission. H/H stable. As above. Qualifiers: Other causes of anemia: acute posthemorrhagic (4) COPD (chronic obstructive pulmonary disease): Status: Chronic Assessment and plan: Not in acute exacerbation. Continue LABA/ICS/LAMA and prn albuterol. Qualifiers: COPD type: emphysema Emphysema type: centrilobular Qualified Code(s): J43.2 - Centrilobular emphysema (5) Diabetes mellitus: Assessment and plan: Continue basal bolus insulin. Qualifiers: Diabetes mellitus type: type 2 Diabetes mellitus intermediate insulin use: without intermediate use Diabetes mellitus complication status: without complication Qualified Code(s): E11.9 - Type 2 diabetes mellitus without complications (6) CKD (chronic kidney disease) stage 3, GFR 30-59 ml/min: Assessment and plan: Cr Continues to worsen. I think low BP is contributing. Hold antihypertensive medications as above. Hold further diuresis and rah-i. (7) SARS-CoV-2 positive: Status: Acute Assessment and plan: PCR remains positive. S/p tx on last admission. DVT BLEs ruled out. (8) Paroxysmal atrial flutter: Assessment and plan: Continue amiodarone but decrease the dose. Hold metoprolol. Hold apixaban. (9) Esophagitis: Status: Acute Assessment and plan: Continue nystatin swish and swallow to 5x/daily. (10) Colon polyps: Status: Acute Assessment and plan: Not bleeding at time of colonoscopy. Surgery recommends against repeat colonoscopy given her age and comorbidities (11) Diverticulosis: Status: Acute Assessment and plan: No evidence of active bleeding. Consider this as a potential cause of GI bleeding. (12) Discharge planning issues: Status: Acute Assessment and plan: Full code Continues to require hospitalization Subjective Subjective Interval history since last seen: Ms Kelly states that she has felt very tired today. She has been hypotensive ever since her morning medications. She denies dizziness, chest pain, shortness of breath. Her LLE is bothering her - she states this precedes this hospitalization and blames it on a trauma - when she fell through the porch. No DVT on dopplers Exam Narrative Exam Narrative: General: Pleasant obese female who is on 2L of O2 by NC, A&Ox3, NAD, laying comfortably nearly flat in bed HEENT: EOMI, MMM Heart: RRR, no m/r/g Lungs: CTAB Abdomen: soft, nontender, nondistended Extremities: 2+ pitting edema BLEs, symmetric Objective Last Vital Signs Temp 36.9 C 01/17/22 15:42 Pulse 58 L 01/17/22 15:42 Resp 18 01/17/22 15:42 BP 95/59 L 01/17/22 15:42 Pulse Ox 95 01/17/22 15:42 Laboratory Results - last 24 hr 01/17/22 01/17/22 08:00 08:00 WBC 9.13 RBC 3.42 L Hgb 10.7 L Hct 32.6 L MCV 95 MCH 31.3 MCHC 32.8 RDW 16.1 H Plt Count 349 MPV 8.4 Immature Gran % 2.2 Neutrophils % 72.2 Lymphocytes % 11.6 Monocytes % 9.4 Eosinophils % 4.3 Basophils % 0.3 Nucleated RBC % 0.0 Absolute Neutrophils 6.59 Absolute Lymphocytes 1.06 L Absolute Monocytes 0.86 H Absolute Eosinophils 0.39 Absolute Basophils 0.03 Sodium 139 Potassium 3.4 L Chloride 96 L Carbon Dioxide 44.9 H Anion Gap -1.9 L BUN 39 H Creatinine 2.1 H Est GFR (CKD-EPI 2020) 25.04 Glucose 128 H Calcium 8.8 Magnesium 1.4 L Objective Narrative Objective Narrative: US venous BLEs: 1. No evidence of a right lower extremity DVT. 2. No evidence of a left lower extremity DVT. 3. Complex fluid collection in the anterior medial thigh.? This may represent a hematoma or seroma.? Abscess cannot be entirely excluded.? Please correlate with patient's clinical history.? CT or MRI with contrast may be considered for further evaluation if clinically warranted.
[2022-01-17] MEDS: Gabapentin 100 MG CAP PO (21:41)
[2022-01-17] MEDS: Insulin Glargine 300 UNITS/3 ML PEN 15 UNITS SC (21:44)
[2022-01-18] VITALS (7 sets, daily range): BP systolic 92–121; BP diastolic 60–72; PULSE 74–89; RESP 16–18; TEMP 36.4–37; O2SAT 87–96
--- NOTE | 2022-01-18 | DI.RAD_ITS ---
Exam(s) XR PORTABLE CHEST AP EXAM: XR PORTABLE CHEST AP CLINICAL HISTORY: productive cough TECHNIQUE: 2D digital imaging was performed of the chest. One image was obtained. An AP view was ob tained. COMPARISON: CR,XR XR CHEST 2V PA LATERAL from 01/12/2022 FINDINGS: MEDIASTINUM: Normal. HEART: Normal. PULMONARY VASCULATURE: Normal. LUNGS: The lung bell have significantly improved compared to the prior examination. There may be a small residual left basilar infiltrate present. PLEURAL SPACE: There is a left pleural effusion. There is blunting of the right costophrenic angle w hich may represent a very tiny pleural effusion. BONE:Within normal limits for the patient's age. OTHER FINDINGS:Normal. IMPRESSION: Overall improved appearance of the chest x-ray since 01/12/2022. DATA REPOSITORY: RADIATION DOSE DELIVERED:
[2022-01-18] MEDS: Nystatin 500000 UNITS/5 ML SUSP 5ML CUP PO ×5 (05:58→23:16)
[2022-01-18 06:58] LABS: Abs Immature Grans 0.21 10^3/uL (0.0-0.06); Absolute Basophil Count 0.03 10^3/uL (0.0-0.2); Absolute Eosinophil Count 0.28 10^3/uL (0.0-0.7); Absolute Lymphocyte Count 0.94 10^3/uL (1.2-3.4); Absolute Monocyte Count 0.76 10^3/uL (0.1-0.8); Absolute Neutrophil Count 5.46 10^3/uL (1.2-6.7); Basophils % 0.4; Eosinophils % 3.6; HCT 31.5 % (36.0-46.0); HGB 10.5 g/dL (11.2-15.7); Immature Grans % 2.7; Lymphocytes % 12.2; MCH 31.6 pg (27.0-33.0); MCHC 33.3 % (32.0-36.0); MCV 95 fL (80-95); MPV 8.6 fL (8.0-11.0); Monocytes % 9.9; Neutrophils % 71.2; Platelet Count 321 10^3/uL (130-400); RBC 3.32 10^6/uL (3.93-5.22); RDW 15.8 % (11.7-14.6); RDW-SD 53.7 fL; WBC 7.68 10^3/uL (4.4-10.8)
[2022-01-18 07:36] LABS: Anion Gap 1.9 mmol/L (3-11); BUN 39 mg/dL (7-18); CO2 39.1 mmol/L (21.0-32.0); CREATININE 1.9 mg/dL (0.55-1.02); Calcium 9.1 mg/dL (8.5-10.1); Chloride 94 mmol/L (98-107); Estimated GFR 28.23 (mL/min/1.73m2); Glucose 351 mg/dL (74-106); Magnesium 1.9 mg/dL (1.8-2.4); Potassium 3.6 mmol/L (3.5-5.1); Sodium 135 mmol/L (136-145)
[2022-01-18] MEDS: Pantoprazole 40 MG TABCR PO (08:19)
[2022-01-18] MEDS: Amiodarone 200 MG TAB PO (08:19)
[2022-01-18] MEDS: Ferrous Sulfate 325 MG TAB PO ×2 (08:19→20:58)
[2022-01-18] MEDS: Escitalopram 20 MG TAB PO (08:19)
[2022-01-18] MEDS: Multivitamin TAB 1 TAB PO (08:19)
[2022-01-18] MEDS: Insulin Aspart 300 UNITS/3 ML PEN SC ×7 (08:20→23:15)
[2022-01-18] MEDS: Nystatin POWDER 15 GM JAR TP ×3 (08:21→21:01)
[2022-01-18] MEDS: Ipratropium/Albuterol 4 GM 120 PUFF INH IH ×4 (10:07→21:01)
[2022-01-18] MEDS: Budesonide/Formoterol 80/4.5 6.9 GM 60 PUFF INH IH ×2 (10:07→21:02)
[2022-01-18] MEDS: Tiotropium Bromide-Respimat 10 PUFF INH 2 PUFF IH (10:07)
--- NOTE | 2022-01-18 19:36 | W.PM.PROGNOT ---
Date of Service Date of service: 01/18/22 Time of Service: 18:50 Assessment and Plan Assessment and plan (1) Volume overload: Status: Acute Assessment and plan: CHFpEF. Now that BP is better, will start diuresis at a gentler dose. TEDs not on when I saw the patient - I had requested the nurses to either put on TEDs or rah-wrap BLEs. Continue to hold lisinopril. Continue amiodarone at a decreased dose. (2) GI bleeding: Status: Chronic Assessment and plan: While on anticoagluation. Evidence of fungal esophagitis on EGD as well as diverticulosis and three non-bleeding polyps on colonoscopy. Consider a small bowel bleed. I Think would benefit from a capsule endoscopy as outpatient Continue to hold anticoagulation for now. (3) Anemia: Status: Chronic Assessment and plan: S/p xfusion of 2 units of pRBCs on this admission. H/H stable. As above. Qualifiers: Other causes of anemia: acute posthemorrhagic (4) COPD (chronic obstructive pulmonary disease): Status: Chronic Assessment and plan: Not in acute exacerbation. Continue LABA/ICS/LAMA and prn albuterol. Qualifiers: COPD type: emphysema Emphysema type: centrilobular Qualified Code(s): J43.2 - Centrilobular emphysema (5) Diabetes mellitus: Assessment and plan: Continue basal bolus insulin. Qualifiers: Diabetes mellitus type: type 2 Diabetes mellitus assistant terminal manager insulin use: without assistant terminal manager use Diabetes mellitus complication status: without complication Qualified Code(s): E11.9 - Type 2 diabetes mellitus without complications (6) CKD (chronic kidney disease) stage 3, GFR 30-59 ml/min: Assessment and plan: Cr better with improvement in BP and holding of lisinopril. Resume diuresis and monitor kidney function. (7) SARS-CoV-2 positive: Status: Acute Assessment and plan: PCR remains positive. S/p tx on last admission. DVT BLEs ruled out. Precautions d/c'ed today. (8) Paroxysmal atrial flutter: Assessment and plan: Continue amiodarone 200 mg daily. Hold metoprolol. Hold apixaban. (9) Esophagitis: Status: Acute Assessment and plan: Continue nystatin swish and swallow to 5x/daily. (10) Colon polyps: Status: Acute Assessment and plan: Not bleeding at time of colonoscopy. Surgery recommends against repeat colonoscopy given her age and comorbidities (11) Diverticulosis: Status: Acute Assessment and plan: No evidence of active bleeding. Consider this as a potential cause of GI bleeding. (12) Discharge planning issues: Status: Acute Assessment and plan: Full code Anticipate discharge home in the next 24-48 hrs Subjective Subjective Interval history since last seen: Shira feels less tired today. She has not been hypotensive. She denies dizziness, chest pain, reports a productive cough with green sputum, denies n/v. Exam Narrative Exam Narrative: General: Pleasant obese female who is on 2L of O2 by NC, A&Ox3, NAD, laying comfortably on her left side in bed, asleep, wakes up easily HEENT: EOMI, MMM Heart: RRR, no m/r/g Lungs: CTAB Abdomen: soft, nontender, nondistended Extremities: 3+ pitting edema BLEs, symmetric Objective Last Vital Signs Temp 36.4 C L 01/18/22 15:05 Pulse 87 01/18/22 15:05 Resp 18 01/18/22 15:05 BP 104/61 01/18/22 15:05 Pulse Ox 95 01/18/22 15:05 Laboratory Results - last 24 hr 01/13/22 01/18/22 01/18/22 05:34 06:45 06:45 WBC 7.68 RBC 3.32 L Hgb 10.5 L Hct 31.5 L MCV 95 MCH 31.6 MCHC 33.3 RDW 15.8 H Plt Count 321 MPV 8.6 Immature Gran % 2.7 Neutrophils % 71.2 Lymphocytes % 12.2 Monocytes % 9.9 Eosinophils % 3.6 Basophils % 0.4 Nucleated RBC % 0.0 Absolute Neutrophils 5.46 Absolute Lymphocytes 0.94 L Absolute Monocytes 0.76 Absolute Eosinophils 0.28 Absolute Basophils 0.03 Sodium 135 L Potassium 3.6 Chloride 94 L Carbon Dioxide 39.1 H Anion Gap 1.9 L BUN 39 H Creatinine 1.9 H Est GFR (CKD-EPI 2020) 28.23 Glucose 351 H Calcium 9.1 Magnesium 1.9 Crossmatch See Detail
[2022-01-18] MEDS: Furosemide 20 MG/2 ML VIAL IVP (20:58)
--- NOTE | 2022-01-18 21:00 | DI.VRAD_ITS ---
PROCEDURE INFORMATION: Exam: XR Chest Exam date and time: 01/18/2022 8:01 PM Age: 71 years old Clinical indication: Cough; Additional info: Productive cough TECHNIQUE: Imaging protocol: Radiologic exam of the chest. Views: 1 view. COMPARISON: CR XR CHEST 2V PA LATERAL 01/12/2022 9:45 PM FINDINGS: Lungs: Lung bases are opacified, left greater than right, improved from previous. Pulmonary vessels are not congested. Pleural spaces: Blunting noted at the costophrenic angles bilaterally, left greater than right, improved from previous. No pneumothorax. Heart/Mediastinum: Unremarkable. No cardiomegaly. Bones/joints: Mild dextroscoliosis and moderate degenerative changes present in the thoracic spine. IMPRESSION: Bilateral pleural effusions and associated collapse/consolidation, left greater than right, improved from previous. Dictated and Authenticated by: Nash Beach MD. Ordering:RITESH Rawls MD
[2022-01-18] MEDS: Normal Saline Flush 10 ML SYR IVP (21:01)
[2022-01-18] MEDS: Gabapentin 100 MG CAP PO (23:16)
[2022-01-18] MEDS: Insulin Glargine 300 UNITS/3 ML PEN 20 UNITS SC (23:16)
[2022-01-19] VITALS (7 sets, daily range): BP systolic 90–108; BP diastolic 50–69; PULSE 79–94; RESP 14–18; TEMP 36.1–36.6; O2SAT 92–95
[2022-01-19] MEDS: Nystatin 500000 UNITS/5 ML SUSP 5ML CUP PO ×5 (06:39→21:19)
[2022-01-19 07:01] LABS: Abs Immature Grans 0.15 10^3/uL (0.0-0.06); Absolute Basophil Count 0.01 10^3/uL (0.0-0.2); Absolute Eosinophil Count 0.24 10^3/uL (0.0-0.7); Absolute Lymphocyte Count 0.86 10^3/uL (1.2-3.4); Absolute Monocyte Count 0.83 10^3/uL (0.1-0.8); Absolute Neutrophil Count 4.34 10^3/uL (1.2-6.7); Basophils % 0.2; Eosinophils % 3.7; HCT 30.7 % (36.0-46.0); HGB 10.1 g/dL (11.2-15.7); Immature Grans % 2.3; Lymphocytes % 13.4; MCH 31.5 pg (27.0-33.0); MCHC 32.9 % (32.0-36.0); MCV 96 fL (80-95); MPV 8.5 fL (8.0-11.0); Monocytes % 12.9; Neutrophils % 67.5; Platelet Count 297 10^3/uL (130-400); RBC 3.21 10^6/uL (3.93-5.22); RDW 15.9 % (11.7-14.6); RDW-SD 56.1 fL; WBC 6.43 10^3/uL (4.4-10.8)
[2022-01-19 07:15] LABS: Anion Gap 2.2 mmol/L (3-11); BUN 31 mg/dL (7-18); CO2 41.8 mmol/L (21.0-32.0); CREATININE 1.7 mg/dL (0.55-1.02); Chloride 95 mmol/L (98-107); Estimated GFR 32.26 (mL/min/1.73m2); Glucose 244 mg/dL (74-106); Magnesium 1.6 mg/dL (1.8-2.4); Potassium 3.3 mmol/L (3.5-5.1); Sodium 139 mmol/L (136-145)
[2022-01-19 08:04] LABS: Procalcitonin 0.1 ng/mL
[2022-01-19] MEDS: Ipratropium/Albuterol 4 GM 120 PUFF INH IH ×4 (08:26→19:29)
[2022-01-19] MEDS: Budesonide/Formoterol 80/4.5 6.9 GM 60 PUFF INH IH ×2 (08:26→19:28)
[2022-01-19] MEDS: Tiotropium Bromide-Respimat 10 PUFF INH 2 PUFF IH (08:26)
[2022-01-19] MEDS: Pantoprazole 40 MG TABCR PO (08:36)
[2022-01-19] MEDS: Amiodarone 200 MG TAB PO (08:37)
[2022-01-19] MEDS: Insulin Aspart 300 UNITS/3 ML PEN SC ×7 (08:37→21:19)
[2022-01-19] MEDS: Escitalopram 20 MG TAB PO (08:37)
[2022-01-19] MEDS: Ferrous Sulfate 325 MG TAB PO ×2 (08:37→19:28)
[2022-01-19] MEDS: Multivitamin TAB 1 TAB PO (08:37)
[2022-01-19] MEDS: Furosemide 20 MG/2 ML VIAL IVP ×2 (08:47→16:07)
[2022-01-19] MEDS: Normal Saline Flush 10 ML SYR IVP ×3 (08:47→16:07)
[2022-01-19] MEDS: POTASSIUM CHLORIDE 20 MEQ/100 ML BAG 50 MEQ IVPB ×2 (08:53→10:54)
[2022-01-19] MEDS: MAGNESIUM SULFATE 2 GM/50 ML BAG IVPB (08:54)
[2022-01-19] MEDS: Nystatin POWDER 15 GM JAR TP ×3 (11:00→19:29)
--- NOTE | 2022-01-19 20:15 | PGE_ITS ---
Date of Service Date of service: 01/19/22 Time of Service: 17:50 Assessment and Plan Assessment and plan (1) Volume overload: Status: Acute Assessment and plan: CHFpEF. BP is tolerating diuresis. Continue. The patient stated that she had difficulty tolerating TEDS today - will try rah wraps. Continue to hold lisinopril. Continue amiodarone at a decreased dose. (2) GI bleeding: Status: Chronic Assessment and plan: While on anticoagluation. Evidence of fungal esophagitis on EGD as well as diverticulosis and three non-bleeding polyps on colonoscopy. Consider a small bowel bleed. I Think would benefit from a capsule endoscopy as outpatient Continue to hold anticoagulation for now. (3) Anemia: Status: Chronic Assessment and plan: S/p xfusion of 2 units of pRBCs on this admission. H/H stable. As above. Qualifiers: Other causes of anemia: acute posthemorrhagic (4) COPD (chronic obstructive pulmonary disease): Status: Chronic Assessment and plan: Not in acute exacerbation. Continue LABA/ICS/LAMA and prn albuterol. Qualifiers: COPD type: emphysema Emphysema type: centrilobular Qualified Code(s): J43.2 - Centrilobular emphysema (5) Diabetes mellitus: Assessment and plan: Continue basal bolus insulin. Qualifiers: Diabetes mellitus type: type 2 Diabetes mellitus long-term insulin use: without long-term use Diabetes mellitus complication status: without complication Qualified Code(s): E11.9 - Type 2 diabetes mellitus without complications (6) CKD (chronic kidney disease) stage 3, GFR 30-59 ml/min: Assessment and plan: Cr better with improvement in BP and holding of lisinopril. Resume diuresis and monitor kidney function. (7) SARS-CoV-2 positive: Status: Acute Assessment and plan: PCR remains positive. S/p tx on last admission. DVT BLEs ruled out. (8) Paroxysmal atrial flutter: Assessment and plan: Continue amiodarone 200 mg daily. Hold metoprolol. Hold apixaban. (9) Esophagitis: Status: Acute Assessment and plan: Continue nystatin swish and swallow to 5x/daily. (10) Colon polyps: Status: Acute Assessment and plan: Not bleeding at time of colonoscopy. Surgery recommends against repeat colonoscopy given her age and comorbidities (11) Diverticulosis: Status: Acute Assessment and plan: No evidence of active bleeding. Consider this as a potential cause of GI bleeding. (12) Discharge planning issues: Status: Acute Assessment and plan: Full code Anticipate discharge home in the next 24-48 hrs Subjective Subjective Interval history since last seen: Ms Kelly states that her legs are still more swollen than her baseline. This is bothering her. Continues to have a cough productive of sputum. Denies dizziness, chest pain, shortness of breath, nausea. Exam Narrative Exam Narrative: General: Pleasant obese female who is on 2L of O2 by NC, A&Ox3, NAD, sitting up at the edge of the bed HEENT: EOMI, MMM Heart: RRR, no m/r/g Lungs: CTAB Abdomen: soft, nontender, nondistended Extremities: 2+ pitting edema BLEs, symmetric, looks better Objective Last Vital Signs Temp 36.6 C 01/19/22 19:23 Pulse 94 H 01/19/22 19:23 Resp 16 01/19/22 19:23 BP 101/68 01/19/22 19:37 Pulse Ox 95 01/19/22 19:23 Laboratory Results - last 24 hr 01/19/22 01/19/22 01/19/22 06:47 06:47 06:47 WBC 6.43 RBC 3.21 L Hgb 10.1 L Hct 30.7 L MCV 96 H MCH 31.5 MCHC 32.9 RDW 15.9 H Plt Count 297 MPV 8.5 Immature Gran % 2.3 Neutrophils % 67.5 Lymphocytes % 13.4 Monocytes % 12.9 Eosinophils % 3.7 Basophils % 0.2 Nucleated RBC % 0.0 Absolute Neutrophils 4.34 Absolute Lymphocytes 0.86 L Absolute Monocytes 0.83 H Absolute Eosinophils 0.24 Absolute Basophils 0.01 Sodium 139 Potassium 3.3 L Chloride 95 L Carbon Dioxide 41.8 H Anion Gap 2.2 L BUN 31 H Creatinine 1.7 H Est GFR (CKD-EPI 2020) 32.26 Glucose 244 H Calcium 9.0 Magnesium 1.6 L Procalcitonin 0.1
[2022-01-19] MEDS: guaiFENesin 600 MG TABCR PO (20:27)
[2022-01-19] MEDS: Amoxicillin 875/Clav. 125 TAB PO (20:44)
[2022-01-19] MEDS: Gabapentin 100 MG CAP PO (21:19)
[2022-01-19] MEDS: Insulin Glargine 300 UNITS/3 ML PEN 20 UNITS SC (21:20)
[2022-01-20 03:34] VITALS: BP 111/57; PULSE 64; RESP 14; TEMP 36.2; O2SAT 95
[2022-01-20 07:09] LABS: Abs Immature Grans 0.11 10^3/uL (0.0-0.06); Absolute Basophil Count 0.02 10^3/uL (0.0-0.2); Absolute Eosinophil Count 0.23 10^3/uL (0.0-0.7); Absolute Lymphocyte Count 1.12 10^3/uL (1.2-3.4); Absolute Monocyte Count 1.04 10^3/uL (0.1-0.8); Absolute Neutrophil Count 5.14 10^3/uL (1.2-6.7); Basophils % 0.3; HCT 30.9 % (36.0-46.0); HGB 9.6 g/dL (11.2-15.7); Immature Grans % 1.4; Lymphocytes % 14.6; MCH 30.6 pg (27.0-33.0); MCHC 31.1 % (32.0-36.0); MCV 98 fL (80-95); MPV 8.7 fL (8.0-11.0); Monocytes % 13.6; Neutrophils % 67.1; Platelet Count 280 10^3/uL (130-400); RBC 3.14 10^6/uL (3.93-5.22); RDW 15.7 % (11.7-14.6); WBC 7.66 10^3/uL (4.4-10.8)
[2022-01-20 07:33] LABS: Anion Gap 2.5 mmol/L (3-11); BUN 27 mg/dL (7-18); CO2 42.5 mmol/L (21.0-32.0); CREATININE 1.5 mg/dL (0.55-1.02); Calcium 8.9 mg/dL (8.5-10.1); Chloride 96 mmol/L (98-107); Estimated GFR 37.49 (mL/min/1.73m2); Glucose 246 mg/dL (74-106); Magnesium 1.6 mg/dL (1.8-2.4); Potassium 3.4 mmol/L (3.5-5.1); Sodium 141 mmol/L (136-145)
[2022-01-20] MEDS: Amoxicillin 875/Clav. 125 TAB PO ×2 (07:59→20:16)
[2022-01-20] MEDS: Amiodarone 200 MG TAB PO (07:59)
[2022-01-20] MEDS: Pantoprazole 40 MG TABCR PO (07:59)
[2022-01-20] MEDS: Escitalopram 20 MG TAB PO (07:59)
[2022-01-20] MEDS: Ferrous Sulfate 325 MG TAB PO ×2 (08:00→20:15)
[2022-01-20] MEDS: guaiFENesin 600 MG TABCR PO ×2 (08:00→20:16)
[2022-01-20] MEDS: Multivitamin TAB 1 TAB PO (08:00)
[2022-01-20] MEDS: Normal Saline Flush 10 ML SYR IVP ×2 (08:01→12:17)
[2022-01-20] MEDS: Furosemide 20 MG/2 ML VIAL IVP ×2 (08:01→16:55)
[2022-01-20 08:10] VITALS: BP 147/74; PULSE 90; RESP 19; TEMP 36.2; O2SAT 93
[2022-01-20] MEDS: Insulin Aspart 300 UNITS/3 ML PEN SC ×7 (08:11→21:59)
[2022-01-20] MEDS: Budesonide/Formoterol 80/4.5 6.9 GM 60 PUFF INH IH ×2 (09:23→20:17)
[2022-01-20] MEDS: Tiotropium Bromide-Respimat 10 PUFF INH 2 PUFF IH (09:23)
[2022-01-20] MEDS: Ipratropium/Albuterol 4 GM 120 PUFF INH IH ×3 (09:24→20:17)
[2022-01-20] MEDS: Nystatin 500000 UNITS/5 ML SUSP 5ML CUP PO ×4 (10:00→21:55)
[2022-01-20 11:27] VITALS: BP 107/60; PULSE 85; RESP 18; TEMP 36.5; O2SAT 96
--- NOTE | 2022-01-20 11:59 | CMPROGNOTE_ITS ---
- If Service Date Differs Date of service: 01/20/22 Time of Service: 11:59 Care Management Progress Note S/O: Shira was sitting up on the edge of her bed when CM met with her. She stated that she is feeling better, although her legs feel weak, and she sometimes feels dizzy when she gets up. CM asked MD for a PT consult, to evaluate her mobility prior to discharge. CM discussed options with Shira regarding discharge plans, and she stated that she is not agreeable to going to a SNF, and she is not agreeable to services. She would consider out patient PT, although she stated that she would like to think about it before agreeing to go. She reported that her daughter is very supportive, and would be transporting her when she is ready. She stated that she feels that she is close to discharge readiness, although some days she still does not feel well, and is worried about her mobility. CM will continue to follow. A: Shira is a 71 year old female admitted to [facility] on 01/12/22 for weakness, GI bleed, COPD. P: Anticipate that Shira will return home, possibly with new services. She will follow up with her PCP and plan of care and transport with family. CM will continue to offer support to Shira ad her discharge needs.
[2022-01-20] MEDS: Potassium Chloride 20 MEQ TABCR 40 MEQ PO (12:17)
[2022-01-20] MEDS: MAGNESIUM SULFATE 2 GM/50 ML BAG IVPB (12:17)
[2022-01-20 16:07] VITALS: BP 101/63; PULSE 87; RESP 18; TEMP 36.4; O2SAT 98
[2022-01-20 19:35] VITALS: BP 141/81; PULSE 97; RESP 18; TEMP 36.7; O2SAT 100
[2022-01-20] MEDS: Nystatin POWDER 15 GM JAR TP (20:18)
[2022-01-20] MEDS: Gabapentin 100 MG CAP PO (21:55)
[2022-01-20] MEDS: Insulin Glargine 300 UNITS/3 ML PEN 20 UNITS SC (21:57)
--- NOTE | 2022-01-20 22:23 | PGE_ITS ---
Date of Service Date of service: 01/20/22 Time of Service: 21:00 Assessment and Plan Assessment and plan (1) Volume overload: Status: Acute Assessment and plan: CHFpEF. BP is tolerating diuresis. Continue IV lasix. Continue darci wraps. Continue to hold lisinopril. Continue amiodarone at a decreased dose. (2) GI bleeding: Status: Chronic Assessment and plan: While on anticoagluation. Evidence of fungal esophagitis on EGD as well as diverticulosis and three non-bleeding polyps on colonoscopy. Consider a small bowel bleed. I Think would benefit from a capsule endoscopy as outpatient Continue to hold anticoagulation for now. (3) Anemia: Status: Chronic Assessment and plan: S/p xfusion of 2 units of pRBCs on this admission. H/H stable. As above. Qualifiers: Other causes of anemia: acute posthemorrhagic (4) COPD (chronic obstructive pulmonary disease): Status: Chronic Assessment and plan: Not in acute exacerbation. Continue LABA/ICS/LAMA and prn albuterol. Qualifiers: COPD type: emphysema Emphysema type: centrilobular Qualified Code(s): J43.2 - Centrilobular emphysema (5) Diabetes mellitus: Assessment and plan: Continue basal bolus insulin. Titrate long acting insulin up. Qualifiers: Diabetes mellitus type: type 2 Diabetes mellitus shelter insulin use: without technician terminal and repeater use Diabetes mellitus complication status: without complication Qualified Code(s): E11.9 - Type 2 diabetes mellitus without complications (6) CKD (chronic kidney disease) stage 3, GFR 30-59 ml/min: Assessment and plan: Cr better with improvement in BP and holding of lisinopril. Continue diuresis (7) SARS-CoV-2 positive: Status: Acute Assessment and plan: PCR remains positive. S/p tx on last admission. DVT BLEs ruled out. Off precautions. (8) Paroxysmal atrial flutter: Assessment and plan: Continue amiodarone 200 mg daily. Hold metoprolol. Hold apixaban. (9) Esophagitis: Status: Acute Assessment and plan: Continue nystatin swish and swallow to 5x/daily. (10) Colon polyps: Status: Acute Assessment and plan: Not bleeding at time of colonoscopy. Surgery recommends against repeat colonoscopy given her age and comorbidities (11) Diverticulosis: Status: Acute Assessment and plan: No evidence of active bleeding. Consider this as a potential cause of GI bleeding. (12) Discharge planning issues: Status: Acute Assessment and plan: Full code Anticipate discharge home in the next 24-48 hrs Subjective Subjective Interval history since last seen: Shira states her breathing and cough are a little better today as are her legs. She denies dizziness, chest pain, shortness of breath, nausea. She likes the DARCI wraps better than DHAVAL stockings. We talked about her possibly going home tomorrow vs the day after. Exam Narrative Exam Narrative: General: Pleasant obese female who is on 2L of O2 by NC, A&Ox3, NAD, laying comfortably on the L side of the bed HEENT: EOMI, MMM Heart: RRR, no m/r/g Lungs: CTAB Abdomen: soft, nontender, nondistended Extremities: 2+ pitting edema BLEs, in darci-wraps, symmetric, looks better Objective Last Vital Signs Temp 36.7 C 01/20/22 19:35 Pulse 97 H 01/20/22 19:35 Resp 18 01/20/22 19:35 BP 141/81 H 01/20/22 19:35 Pulse Ox 100 01/20/22 19:35 Laboratory Results - last 24 hr 01/20/22 01/20/22 06:30 06:30 WBC 7.66 RBC 3.14 L Hgb 9.6 L Hct 30.9 L MCV 98 H MCH 30.6 MCHC 31.1 L RDW 15.7 H Plt Count 280 MPV 8.7 Immature Gran % 1.4 Neutrophils % 67.1 Lymphocytes % 14.6 Monocytes % 13.6 Eosinophils % 3.0 Basophils % 0.3 Nucleated RBC % 0.0 Absolute Neutrophils 5.14 Absolute Lymphocytes 1.12 L Absolute Monocytes 1.04 H Absolute Eosinophils 0.23 Absolute Basophils 0.02 Sodium 141 Potassium 3.4 L Chloride 96 L Carbon Dioxide 42.5 H Anion Gap 2.5 L BUN 27 H Creatinine 1.5 H Est GFR (CKD-EPI 2020) 37.49 Glucose 246 H Calcium 8.9 Magnesium 1.6 L
[2022-01-20 23:20] VITALS: BP 115/61; PULSE 98; RESP 18; TEMP 36.9; O2SAT 96
[2022-01-21] VITALS (7 sets, daily range): BP systolic 105–155; BP diastolic 66–81; PULSE 77–97; RESP 18–19; TEMP 36.4–36.9; O2SAT 95–99
[2022-01-21] MEDS: Nystatin 500000 UNITS/5 ML SUSP 5ML CUP PO ×4 (05:12→21:56)
[2022-01-21] MEDS: Normal Saline Flush 10 ML SYR IVP ×2 (05:12→07:48)
[2022-01-21 07:23] LABS: Abs Immature Grans 0.09 10^3/uL (0.0-0.06); Absolute Basophil Count 0.02 10^3/uL (0.0-0.2); Absolute Eosinophil Count 0.22 10^3/uL (0.0-0.7); Absolute Monocyte Count 0.97 10^3/uL (0.1-0.8); Absolute Neutrophil Count 4.93 10^3/uL (1.2-6.7); Basophils % 0.3; HCT 29.9 % (36.0-46.0); HGB 9.7 g/dL (11.2-15.7); Immature Grans % 1.2; Lymphocytes % 16.2; MCH 31.6 pg (27.0-33.0); MCHC 32.4 % (32.0-36.0); MCV 97 fL (80-95); MPV 8.8 fL (8.0-11.0); Monocytes % 13.1; Neutrophils % 66.2; Platelet Count 276 10^3/uL (130-400); RBC 3.07 10^6/uL (3.93-5.22); RDW 15.6 % (11.7-14.6); RDW-SD 55.2 fL; WBC 7.43 10^3/uL (4.4-10.8)
[2022-01-21 07:43] LABS: Anion Gap 0.5 mmol/L (3-11); BUN 23 mg/dL (7-18); CO2 41.5 mmol/L (21.0-32.0); CREATININE 1.4 mg/dL (0.55-1.02); Chloride 97 mmol/L (98-107); Estimated GFR 40.73 (mL/min/1.73m2); Glucose 219 mg/dL (74-106); Magnesium 1.8 mg/dL (1.8-2.4); Potassium 3.6 mmol/L (3.5-5.1); Sodium 139 mmol/L (136-145)
[2022-01-21] MEDS: Multivitamin TAB 1 TAB PO (07:47)
[2022-01-21] MEDS: Escitalopram 20 MG TAB PO (07:47)
[2022-01-21] MEDS: guaiFENesin 600 MG TABCR PO ×2 (07:47→21:56)
[2022-01-21] MEDS: Amiodarone 200 MG TAB PO (07:47)
[2022-01-21] MEDS: Nystatin POWDER 15 GM JAR TP ×3 (07:48→22:05)
[2022-01-21] MEDS: Pantoprazole 40 MG TABCR PO (07:48)
[2022-01-21] MEDS: Amoxicillin 875/Clav. 125 TAB PO (07:48)
[2022-01-21] MEDS: Ferrous Sulfate 325 MG TAB PO ×2 (07:48→21:57)
[2022-01-21] MEDS: Furosemide 20 MG/2 ML VIAL IVP (07:48)
[2022-01-21] MEDS: Insulin Aspart 300 UNITS/3 ML PEN SC ×7 (07:49→22:01)
[2022-01-21] MEDS: Tiotropium Bromide-Respimat 10 PUFF INH 2 PUFF IH (08:38)
[2022-01-21] MEDS: Ipratropium/Albuterol 4 GM 120 PUFF INH IH ×4 (08:38→21:59)
[2022-01-21] MEDS: Budesonide/Formoterol 80/4.5 6.9 GM 60 PUFF INH IH ×2 (08:38→21:59)
--- NOTE | 2022-01-21 12:39 | W.PM.PROGNOT ---
Date of Service Date of service: 01/21/22 Time of Service: 12:39 Assessment and Plan Assessment and plan (1) Volume overload: Status: Acute Assessment and plan: CHFpEF. BP is tolerating diuresis. dc iv lasix; switch to po lasix, add spironolactone low dose Continue rah wraps. Continue to hold lisinopril. Professional time spent interviewing and examining patient, discussion of goals of care with hospital team (care management, nursing and consulting professionals) was 30 minutes. (2) GI bleeding: Status: Chronic Assessment and plan: While on anticoagluation. Evidence of fungal esophagitis on EGD as well as diverticulosis and three non-bleeding polyps on colonoscopy. Consider a small bowel bleed versus diverticular I Think would benefit from a capsule endoscopy as outpatient Continue to hold anticoagulation for now. (3) Anemia: Status: Chronic Assessment and plan: S/p xfusion of 2 units of pRBCs on this admission. H/H stable. continue iron supplementation As above. Qualifiers: Other causes of anemia: acute posthemorrhagic (4) COPD (chronic obstructive pulmonary disease): Status: Chronic Assessment and plan: Not in acute exacerbation. Continue LABA/ICS/LAMA and prn albuterol. Qualifiers: COPD type: emphysema Emphysema type: centrilobular Qualified Code(s): J43.2 - Centrilobular emphysema (5) Diabetes mellitus: Assessment and plan: Continue basal bolus insulin. Titrate long acting insulin up. Qualifiers: Diabetes mellitus type: type 2 Diabetes mellitus salvage determiner insulin use: without intermediate use Diabetes mellitus complication status: without complication Qualified Code(s): E11.9 - Type 2 diabetes mellitus without complications (6) CKD (chronic kidney disease) stage 3, GFR 30-59 ml/min: Assessment and plan: Cr better with improvement in BP and holding of lisinopril. Continue diuresis (7) SARS-CoV-2 positive: Status: Acute Assessment and plan: PCR remains positive. S/p tx on last admission. DVT BLEs ruled out. Off precautions. (8) Paroxysmal atrial flutter: Assessment and plan: Continue amiodarone 200 mg daily. resume Toprol XL Hold apixaban. (9) Esophagitis: Status: Acute Assessment and plan: Continue nystatin swish and swallow to 5x/daily. (10) Colon polyps: Status: Acute Assessment and plan: Not bleeding at time of colonoscopy. Surgery recommends against repeat colonoscopy given her age and comorbidities (11) Diverticulosis: Status: Acute Assessment and plan: No evidence of active bleeding. Consider this as a potential cause of GI bleeding. (12) Discharge planning issues: Status: Acute Assessment and plan: Full code Anticipate discharge home in the next 24-48 hrs Subjective Subjective Interval history since last seen: Patient denies any nausea or vomiting nor any abdominal pain. She had a good BM, no melena or hematochezia. She has had no CP nor palpitations. Dyspnea is about the same. Exam Narrative Exam Narrative: Elderly, obese female who is sitting up at the bedside, just having finished lunch Lungs: bibasilar rales, no rhonchi or wheezing Heart: regular w/ intermittent ectopic beat Abdomen: obese, nontender Legs/feet: no pitting edema Objective Last Vital Signs Temp 36.6 C 01/21/22 11:19 Pulse 94 H 01/21/22 11:19 Resp 18 01/21/22 11:19 BP 151/71 H 01/21/22 11:19 Pulse Ox 98 01/21/22 11:19 Laboratory Results - last 24 hr 01/21/22 01/21/22 06:42 06:42 WBC 7.43 RBC 3.07 L Hgb 9.7 L Hct 29.9 L MCV 97 H MCH 31.6 MCHC 32.4 RDW 15.6 H Plt Count 276 MPV 8.8 Immature Gran % 1.2 Neutrophils % 66.2 Lymphocytes % 16.2 Monocytes % 13.1 Eosinophils % 3.0 Basophils % 0.3 Nucleated RBC % 0.0 Absolute Neutrophils 4.93 Absolute Lymphocytes 1.20 Absolute Monocytes 0.97 H Absolute Eosinophils 0.22 Absolute Basophils 0.02 Sodium 139 Potassium 3.6 Chloride 97 L Carbon Dioxide 41.5 H Anion Gap 0.5 L BUN 23 H Creatinine 1.4 H Est GFR (CKD-EPI 2020) 40.73 Glucose 219 H Calcium 9.0 Magnesium 1.8
[2022-01-21] MEDS: Spironolactone 25 MG TAB PO (12:47)
[2022-01-21] MEDS: Metoprolol CR 25 MG TABCR PO (13:29)
--- NOTE | 2022-01-21 13:45 | IN_ITS ---
Date of service: 01/21/22 Time of Service: 13:15 PT Notes Visit Reasons: Weakness, GI bleed, COPD Inpatient Physical Therapy Evaluation Date: 01/21/22 Referring Doctor: Sinai Brewer MD PT Orders: PT CONSULT: Limited ability Precautions: Standard, fall risk Patient Profile/Admitting Diagnosis: 71 yo female, S/P COVID and pneumonia, admitted with volume overload, GI bleed, anemia, and COPD exacerbation, having not been OOB or done any remarkable activity since admission on 01/12/22. PMHX: All Active Problems? General weakness (Acute) Pleural effusion (Acute) Discharge planning issues (Acute) Tobacco abuse (Chronic) Depression (Chronic) Hypertension (Chronic) Dental abscess (Acute) COPD (chronic obstructive pulmonary disease) (Chronic) Personal history of nicotine dependence (Acute) Traumatic injury of left lower extremity (Acute) Rhabdomyolysis (Acute) Right ankle injury (Acute) Anemia (Chronic) Medical History? CKD (chronic kidney disease) stage 3, GFR 30-59 ml/min Pt. deniesDiabetes mellitus Diabetes mellitus 10/21/21 [facility] visit not well controlled, A1C 8.2Discharge planning issues On supplemental oxygen therapy on O2 of night. Is able to lay flat Surgical History? Hx of hernia repair Social History/Home Situation: Lives alone in a trailer, 21 y.o. granddaughter lives with her, but she works FT. Length of trailer is ~70 ft, ramp to enter with rail. Premorbid level of function: I using cane, recently increasing use of RW. Independent with self care and light meals, admitting recent difficult doing this needing a lot breaks, and was struggling to get out of chairs. Had 3 falls in the last month, and could barley get herself up. She continues to drive. Does not work. O2 constantly at 2L Current Functional Limitations: Close supervision with RW for short distance of ambulation, supervision with transfers, I bed mobility. Unable to walk household distance at this time. Equipment Owned/DME: RW, SPC Subjective: Denies pain. L LE weak and unstable, due to an old injury last year, fearful of falling due to L LE and having been in bed for the last week. Objective: General Observation: Lying in hospital bed, IV port L cubitol fossa, alert, nervous to ambulate, obese. Mental Status: Alert, oriented to person, place and time Pain: 0/10 Vital Signs: BP 134/67, O2 on 2L O2 96% sat, HR 91 ROM: Upper Extremity: Grossly 145 deg elevation paulina, elbows wrist WNL Lower Extremity: Grossly WFL bilaterally Strength: Right Upper Extremity: Grossly 4+/5 all planes R jean claude, elbow wrist 5/5 Left Upper Extremity: 4/5 all planes at jean claude, elbow and wrist 5/5 Right Lower Extremity: Hip flex 3/5, quad and HS 5/5, DF 3/5, PF 3+/5 Left Lower Extremity: Hip flex 3/5, quad and HS 4-/5, DF and PF 3+/5 Bed Mobility/Transfers: Bed mobility: Independent Supine at 45 deg HOB to EOB independent with rail EOB to stand with supervision to RW Stand to EOB supervision from RW Gait: RW, tolerating only 20 ft at a time due to SOB, with 2L O2 via NC Balance: Static Sitting: Good Dynamic Sitting: Good Static Standing: Fair Dynamic Standing: Fair Stage 4 Balance Test Time (seconds) Feet together 10 Partial tandem 10 Tandem 0 One foot 0 Special Tests: Mobility Limitations Standardized Measure [facility] AM-PAC 6 clicks Basic Mobility Inpatient Short Form: 47% disability Treatment: Therapeutic Procedures: 20 ft x 3, with RW close supervision, 2 LO2 via NC to improve functional endurance for progression to return home. LAQ L x 20 HEP review: LAQ, jean claude press, butt squeezes, ankle pumps Informed Consent/Education: Patient instructed in purpose of PT consult and plan of care. Assessment: Patient is a 71 year old female referred to physical therapy services due to limited ability, developed during admission stay for management of volume overload, COPD exacerbation, anemia, GI bleed and what I think could be long COVID complications do to continued SOB and deconditioning. Patient presents with LE weakness L>R limiting her functional ability, SOB, poor endurance limiting her household ambulation tolerance, poor balance allowing her high fall risk, and AMPAC score of 47% disability. Patient is not currently presenting safe to return home due to fall risk, and poor ambulation tolerance needed for safe return home. She will likely require swing status, with eventual outpatient rehab. Patient is assessed as a Moderate 85287 complexity based on the following: History: See comorbidites Examination: See above assessment Presentation: Evolving Decision Making: Moderate Goals: Goals X1 week 1. Supine-Sit Independent 2. Sit-Supine Independent 3. Sit-Stand Independent at RW 4. Stand-Sit Independent 5. Bed-Chair Independent 6. Chair-Bed Independent 7. Gait 30 ft with RW, distant supervision 8. Ramp independently with rail 9. Independent with home exercise program 10. Balance 5 sec tandem stance Plan of Care/Treatment Plan: 1-2x/day, 7 days/week x 1 week. Plan of care has been reviewed with the SR COMMUNITY MANAGER providing the service under Physical Therapy direction. Initiate Physical Therapy intervention for strengthening, bed mobility, transfers, gait, stairs, balance training, use of assistive device. DISCHARGE RECOMMENDATIONS: SNF for continued rehabilitation TREATMENT CODE/TIME: 78766, 89503, 30 min direct and total
[2022-01-21] MEDS: Furosemide 40 MG TAB PO (16:14)
--- NOTE | 2022-01-21 16:34 | PDOC.CMPRO ---
- If Service Date Differs Date of service: 01/21/22 Time of Service: 16:34 Care Management Progress Note S/O: Shira continues to tolerate diuresis, which will be changed to PO today. She had a PT evaluation today, which stated that SNF is recommended. Shira reported to CM that she is not agreeable to SNF or PT. CM will discuss this further with Shira. She is not medically ready for discharge, but per report will likely be ready in 24-48 hours. CM will continue to follow. A: Shira is a 71 year old female admitted to [facility] on 01/12/22 for weakness, GI bleed, COPD. P: Anticipate that Shira will return home, possibly with new services. She will follow up with her PCP and plan of care and transport with family. CM will continue to offer support to Shira ad her discharge needs.
[2022-01-21] MEDS: Gabapentin 100 MG CAP PO (21:56)
[2022-01-21] MEDS: Melatonin 3 MG TAB 6 MG PO (21:57)
[2022-01-21] MEDS: Insulin Glargine 300 UNITS/3 ML PEN 25 UNITS SC (22:02)
[2022-01-22] MEDS: Nystatin 500000 UNITS/5 ML SUSP 5ML CUP PO ×4 (05:20→21:20)
[2022-01-22 07:26] VITALS: BP 121/56; PULSE 73; RESP 18; TEMP 36; O2SAT 99
[2022-01-22 07:38] LABS: Anion Gap -1.8 mmol/L (3-11); BUN 22 mg/dL (7-18); CO2 43.8 mmol/L (21.0-32.0); CREATININE 1.4 mg/dL (0.55-1.02); Calcium 8.9 mg/dL (8.5-10.1); Chloride 98 mmol/L (98-107); Estimated GFR 40.73 (mL/min/1.73m2); Glucose 144 mg/dL (74-106); NT-proBNP 681 pg/mL (<300); Potassium 3.6 mmol/L (3.5-5.1); Sodium 140 mmol/L (136-145)
[2022-01-22] MEDS: Budesonide/Formoterol 80/4.5 6.9 GM 60 PUFF INH IH ×2 (07:52→19:55)
[2022-01-22] MEDS: Ipratropium/Albuterol 4 GM 120 PUFF INH IH ×4 (07:54→19:56)
[2022-01-22] MEDS: Tiotropium Bromide-Respimat 10 PUFF INH 2 PUFF IH (07:55)
[2022-01-22] MEDS: Spironolactone 25 MG TAB PO (08:56)
[2022-01-22] MEDS: Metoprolol CR 50 MG TABCR PO (08:56)
[2022-01-22] MEDS: guaiFENesin 600 MG TABCR PO ×2 (08:56→19:55)
[2022-01-22] MEDS: Pantoprazole 40 MG TABCR PO (08:57)
[2022-01-22] MEDS: Ferrous Sulfate 325 MG TAB PO ×2 (08:57→19:55)
[2022-01-22] MEDS: Multivitamin TAB 1 TAB PO (08:57)
[2022-01-22] MEDS: Amiodarone 200 MG TAB PO (08:57)
[2022-01-22] MEDS: Furosemide 40 MG TAB PO ×2 (08:57→16:31)
[2022-01-22] MEDS: Escitalopram 20 MG TAB PO (08:57)
[2022-01-22] MEDS: Insulin Aspart 300 UNITS/3 ML PEN SC ×7 (08:58→21:27)
[2022-01-22] MEDS: Nystatin POWDER 15 GM JAR TP ×3 (09:00→21:29)
[2022-01-22 12:55] VITALS: PULSE 86; PULSE 92; RESP 18; O2SAT 94; O2SAT 96
[2022-01-22 15:12] VITALS: BP 118/75; PULSE 77; RESP 18; TEMP 36.9; O2SAT 98
--- NOTE | 2022-01-22 15:24 | PT.INTREAT ---
Date of service: 01/22/22 Time of Service: 08:30 PT Notes Visit Reasons: Weakness, GI bleed, COPD Inpatient Physical Therapy Treatment Note [facility] Date: 01/22/2022 PRECAUTIONS: Activity as tolerated SUBJECTIVE: Shira is pleasant and agreeable to participating in PT. She reports that she is feeling better. She also reports that she has been getting up and transferring to the commode independently, as after being cleared this morning, has been ambulating to the bathroom with FWW support independently as well. OBJECTIVE: PAIN: No c/o pain BED MOBILITY/TRANSFERS Supine-sit: I Sit-supine: I Sit-stand: I Stand-sit: I GAIT Assistive Device: FWW Weight bearing: Full Assist: I Distance: 60' in a.m.; 60' in p.m. Deviation: Steady gait and pacing, no LOB nor SOB ASSESSMENT: Patient tolerated session well, without complaint. She demonstrates improved gait and pacing with use of FWW support. She is currently independent with all transfers, bed mobility, and short distance ambulation with FWW. PLAN: Patient to discharge to home later today, per provider. Recommend PT upon discharge for continued conditioning for improved activity tolerance. TREATMENT CODE/TIME: Session 1: 25 minutes; 32971 x2 (08:30) Session 2: 15 minutes; [id number] (14:50)
--- NOTE | 2022-01-22 15:37 | W.PM.PROGNOT ---
Date of Service Date of service: 01/22/22 Time of Service: 15:37 Assessment and Plan Assessment and plan (1) Volume overload: Status: Acute Assessment and plan: I think that she is now euvolemic. I will follow up on repeat BNP and bmp and magensium in the morning. she should be dc home on oral diuretics. She is on furosemide 40 mg bid which I think we can simplify to torsemide 40 mg daily. She should continue Toprol XL and amiodarone for her PAF/aflutter and get follow up cardiac event recorder upon discharge. Her echo did not show any LV or RV dilatation nor did her hemodynamics support a dx of HFPEF. Nevertheless, her LV wall was borderline for LVH and given her COPD, I think that she has some chronic CHF which has been exacerbated by her volume overload from her blood transfusions. (2) GI bleeding: Status: Chronic Assessment and plan: no current active bleeding. She received 2 untis of PRBC this admission for Hb of 6.0. Last Hb was 9.7 gm yesterday. I will recheck tomorow w/ her electrolytes. (3) Anemia: Status: Chronic Assessment and plan: currently on iron supplementation. recheck CBC prior to dc home tomorrow. Qualifiers: Other causes of anemia: acute posthemorrhagic (4) COPD (chronic obstructive pulmonary disease): Status: Chronic Assessment and plan: Not in acute exacerbation. Continue LABA/ICS/LAMA and prn albuterol. Qualifiers: COPD type: emphysema Emphysema type: centrilobular Qualified Code(s): J43.2 - Centrilobular emphysema (5) Diabetes mellitus: Assessment and plan: Continue basal bolus insulin. Titrate long acting insulin up. glucose 150 to 160 today. Qualifiers: Diabetes mellitus type: type 2 Diabetes mellitus adjunct faculty for medical terminology insulin use: without adjunct faculty for medical terminology use Diabetes mellitus complication status: without complication Qualified Code(s): E11.9 - Type 2 diabetes mellitus without complications (6) CKD (chronic kidney disease) stage 3, GFR 30-59 ml/min: Assessment and plan: Cr better with improvement in BP and holding of lisinopril. Continue diuresis (7) SARS-CoV-2 positive: Status: Acute Assessment and plan: PCR remains positive. S/p tx on last admission. DVT BLEs ruled out. Off precautions. (8) Paroxysmal atrial flutter: Assessment and plan: Continue amiodarone 200 mg daily. resume Toprol XL Hold apixaban in light of her recent GI bleed (9) Esophagitis: Status: Acute Assessment and plan: Continue nystatin swish and swallow to 5x/daily. continue for another 7 days post discharge for total of 14 days (10) Colon polyps: Status: Acute Assessment and plan: Not bleeding at time of colonoscopy. Surgery recommends against repeat colonoscopy given her age and comorbidities (11) Diverticulosis: Status: Acute Assessment and plan: No evidence of active bleeding. Consider this as a potential cause of GI bleeding. (12) Discharge planning issues: Status: Acute Assessment and plan: Full code Anticipate discharge home tomorrow 01/23 Subjective Subjective Interval history since last seen: Overall, Shira is feeling better. Dyspnea has improved. She is now on oxygen per NC @ 2 lpm which is her baseline. She sustained her oxygen saturation during her ambulatory pulse oximetry and did not require any increase in her oxygen. I told Shira that I feel that we have diuresed her to her euvolemic state and that she is ready for dc home. She indicated that she could not get a ride this late in the afternoon. WE will plan for dc home tomorrow morning. This will allow me to recheck her labs prior to dc to follow up on her Mg and her K levels. Shira did express one concern and that is she has noticed some involuntary jerking movements. She says sometimes it will be her hand or arm and other times her leg or even her abdominal muscles. I told her that she may have some myoclonus or muscle spasms from low magnesium or low potassium levels. She had been getting iv replacement but I have now put her oral supplements. I will recheck her levels in the morning. Exam Narrative Exam Narrative: Obese, pleasant female who is sitting up at bedside coloring in her coloring book. She seems to have no tremors; Lungs: clear Heart: regular Legs: no pitting edema Objective Last Vital Signs Temp 36.9 C 01/22/22 15:12 Pulse 77 01/22/22 15:12 Resp 18 01/22/22 15:12 BP 118/75 01/22/22 15:12 Pulse Ox 98 01/22/22 15:12 Laboratory Results - last 24 hr 01/22/22 06:40 Sodium 140 Potassium 3.6 Chloride 98 Carbon Dioxide 43.8 H Anion Gap -1.8 L BUN 22 H Creatinine 1.4 H Est GFR (CKD-EPI 2020) 40.73 Glucose 144 H Calcium 8.9 NT-Pro-B Natriuret Pep 681 H
[2022-01-22] MEDS: Magnesium Gluconate 500 MG TAB PO (16:31)
[2022-01-22] MEDS: Potassium Chloride 10 MEQ CAPCR 20 MEQ PO (16:32)
--- NOTE | 2022-01-22 16:58 | PDOC.CMPRO ---
- If Service Date Differs Date of service: 01/22/22 Time of Service: 16:58 Care Management Progress Note S/O: hSira was sitting up on the edge of her bed when CM met with her. She was talking on the phone at the time, and continued her conversation. Per report, Shira continues to improve. Per PT, she is independent, and does not require services upon discharge. She stated to staff that she is looking forward to returning home to see her dogs. CM will continue to follow. A: Shira is a 71 year old female admitted to [facility] on 01/12/22 for weakness, GI bleed, COPD. P: Anticipate that Shira will return home, with no new services. She will follow up with her PCP and plan of care and transport with family. CM will continue to offer support to Shira ad her discharge needs.
--- NOTE | 2022-01-22 17:07 | CHAPLAIN ---
Shira said she may be discharged tomorrow and is happy about this primarily because she misses her dogs. She said she has spent much more time in the hospital than at home in the past two months. She been doing some coloring to pass the time.
[2022-01-22] MEDS: Gabapentin 100 MG CAP PO (19:55)
[2022-01-22] MEDS: Melatonin 3 MG TAB 9 MG PO (21:19)
[2022-01-22] MEDS: Normal Saline Flush 10 ML SYR IVP (21:19)
[2022-01-22] MEDS: Cyclobenzaprine 10 MG TAB PO (21:20)
[2022-01-22] MEDS: Insulin Glargine 300 UNITS/3 ML PEN 25 UNITS SC (21:29)
[2022-01-22 23:35] VITALS: BP 106/65; PULSE 74; RESP 16; TEMP 36.2; O2SAT 94
[2022-01-23 07:08] LABS: Abs Immature Grans 0.04 10^3/uL (0.0-0.06); Absolute Basophil Count 0.03 10^3/uL (0.0-0.2); Absolute Eosinophil Count 0.15 10^3/uL (0.0-0.7); Absolute Lymphocyte Count 1.42 10^3/uL (1.2-3.4); Absolute Monocyte Count 0.85 10^3/uL (0.1-0.8); Absolute Neutrophil Count 4.72 10^3/uL (1.2-6.7); Basophils % 0.4; Eosinophils % 2.1; HCT 30.5 % (36.0-46.0); HGB 9.6 g/dL (11.2-15.7); Immature Grans % 0.6; Lymphocytes % 19.7; MCHC 31.5 % (32.0-36.0); MCV 98 fL (80-95); MPV 8.9 fL (8.0-11.0); Monocytes % 11.8; Neutrophils % 65.4; Platelet Count 236 10^3/uL (130-400); RDW 15.5 % (11.7-14.6); RDW-SD 55.4 fL; WBC 7.21 10^3/uL (4.4-10.8)
[2022-01-23 07:15] VITALS: BP 107/61; PULSE 73; RESP 18; TEMP 36.5; O2SAT 93
[2022-01-23 07:26] LABS: Anion Gap -2.1 mmol/L (3-11); BUN 22 mg/dL (7-18); CO2 43.1 mmol/L (21.0-32.0); CREATININE 1.6 mg/dL (0.55-1.02); Calcium 8.9 mg/dL (8.5-10.1); Chloride 99 mmol/L (98-107); Glucose 109 mg/dL (74-106); Magnesium 1.7 mg/dL (1.8-2.4); NT-proBNP 677 pg/mL (<300); Potassium 3.9 mmol/L (3.5-5.1); Sodium 140 mmol/L (136-145)
[2022-01-23] MEDS: Ferrous Sulfate 325 MG TAB PO (07:55)
[2022-01-23] MEDS: Spironolactone 25 MG TAB PO (07:55)
[2022-01-23] MEDS: Pantoprazole 40 MG TABCR PO (07:55)
[2022-01-23] MEDS: Amiodarone 200 MG TAB PO (07:55)
[2022-01-23] MEDS: Metoprolol CR 50 MG TABCR PO (07:55)
[2022-01-23] MEDS: Potassium Chloride 10 MEQ CAPCR 20 MEQ PO (07:55)
[2022-01-23] MEDS: guaiFENesin 600 MG TABCR PO (07:55)
[2022-01-23] MEDS: Furosemide 40 MG TAB PO (07:55)
[2022-01-23] MEDS: Magnesium Gluconate 500 MG TAB PO (07:56)
[2022-01-23] MEDS: Multivitamin TAB 1 TAB PO (07:56)
[2022-01-23] MEDS: Escitalopram 20 MG TAB PO (07:56)
[2022-01-23] MEDS: Nystatin POWDER 15 GM JAR TP (07:57)
--- NOTE | 2022-01-23 08:57 | CMPROGNOTE_ITS ---
- If Service Date Differs Date of service: 01/23/22 Time of Service: 08:58 Care Management Progress Note S/O: Shira was sitting up on the edge of her bed when CM met with her. She was talking on the phone at the time, and continued her conversation. Per report, Shira continues to improve. Per PT, she is independent, and does not require services upon discharge. She stated to staff that she is looking forward to returning home to see her dogs. CM will continue to follow. A: Shira is a 71 year old female admitted to [facility] on 01/12/22 for weakness, GI bleed, COPD. P: Anticipate that Shira will return home, with no new services. She will follow up with her PCP and plan of care and transport with family. CM will continue to offer support to Shira ad her discharge needs.
[2022-01-23] MEDS: Tiotropium Bromide-Respimat 10 PUFF INH 2 PUFF IH (09:02)
[2022-01-23] MEDS: Ipratropium/Albuterol 4 GM 120 PUFF INH IH ×2 (09:03→11:56)
[2022-01-23] MEDS: Budesonide/Formoterol 80/4.5 6.9 GM 60 PUFF INH IH (09:03)
--- NOTE | 2022-01-23 10:10 | PT.INTREAT ---
Date of service: 01/23/22 Time of Service: 09:52 PT Notes Visit Reasons: Weakness, GI bleed, COPD Inpatient Physical Therapy Treatment Note [facility] Date: 01/23/2022 PRECAUTIONS: Activity as tolerated SUBJECTIVE: Shira is pleasant and agreeable to participating in PT. She reports that she is feeling tired today. She also reports that she has been getting up and transferring to the bathroom and around her room independently with FWW support. She reports that she uses either a FWW or cane at home. OBJECTIVE: PAIN: No c/o pain BED MOBILITY/TRANSFERS Supine-sit: I Sit-supine: I Sit-stand: I Stand-sit: I GAIT Assistive Device: SPC Weight bearing: Full Assist: S Distance: 60' Deviation: Steady gait and pacing, no SOB, minimal LOB x1 with self-recovery TOILETING: Patient toileted independently ASSESSMENT: Patient tolerated session well, without complaint. She demonstrates steady gait and pacing with use of SPC support, although does demonstrate minimal LOB x1 with self-recovery. She is currently independent with all transfers, bed mobility, and short distance ambulation. PLAN: Patient to discharge to home later today, per provider. Recommend HH PT upon discharge for continued conditioning for improved activity tolerance. TREATMENT CODE/TIME: 15 minutes; 32973 (09:52)
[2022-01-23] MEDS: Insulin Aspart 300 UNITS/3 ML PEN SC ×2 (11:57→11:58)
--- NOTE | 2022-01-23 13:06 | DSE_ITS ---
Date of service: 01/23/22 Time of Service: 13:06 DS: Diagnosis Discharge Diagnosis (1) GI bleeding: Status: Resolved Asessment and Plan: Patient admitted d/t general weakness, found to be anemic w/ Hb 9.6 gm and had been on DOAC for PAF but presented w/ symptoms of dyspnea and recent black stools. Hb dropped overnight to 6 gm necessitating transfusion of 2 units of PRBC and resulting in Hb of 10 gm. Her blood count remained relatively stable the rest of her hospitalization. Discharge Hb was 9.6 gm. She was placed on PPI and surgical consult was obtained w/ Dr. Mireles and Dr. Perry. Patient had EGD on 01/13 which demonstrated thrush of the esophagus adn mild antral inflammation but no upper GI bleeding. Thrush was treated w/ nystatin swish and swallow. C-scope was then peformed on 01/[address] Perry and this showed figueroa- diverticulosis but no acitve bleeding. Therefore the assumption is her blood loss was some diverticular bleeding that had stopped or she has small bowel AVM. Her DOAC was never restarted. Her PAF was controlled w/ amiodarone and metoprolol. She finished her loading doses of her amiodarone and her dose was reduced to 200 mg daily prior to her discharge home. Patient developed volume overload from transufusions and fluid resuscitation. This required iv furosemide and she was then converted to oral furosemide and spironolactone. Her echocardiogram done on 12/17/21 showed normal LV function but borderline measurements for concentric LVH. The official reading was normal LV size and function (LVEF 55%). She did not have doppler findings consistent w/ increased LV filling pressures. Nevertheless, the patient has required diuretics to control her bilateral leg edema. Venous duplex scan was done on 01/17 which did not show any deep venous thrombosis. Patient was dc home on iron supplementation to treat her anemia. (2) Diverticulosis: Status: Chronic Asessment and Plan: Dr. Perry found 3 cecal polyps and figueroa diverticulosis although no activing bleeding. She advised against further colonoscopies given the patient's comorbitites as she felt that the patient was too high of risk. (3) Colon polyps: Status: Chronic Asessment and Plan: 3 cecal biopsies were done and pathology returned as fragments of tubular adenomas (4) Esophagitis: Status: Acute Asessment and Plan: secondary to yeast, treated w/ antifungal, Micafungin x 7 days then put on oral nystatin swish and swallow. (5) Anemia: Status: Chronic Asessment and Plan: patient presented w/ Hb of 9.6 gm (down from prior 13.2 gm on 01/12) and dropped to 6.0 gm and required transfusion of 2 units rising tto 10 gm and she remained relatiively stable throughout the rest of her stay. Hb was 9.6 gm on discharge. She had EGD and colonoscopy as uotlined above (6) Volume overload: Status: Resolved Asessment and Plan: patient required iv lasix and later was put on oral lasix and spironolactone (7) COPD (chronic obstructive pulmonary disease): Status: Chronic Asessment and Plan: patient was treated w/ bronchodilator updrafts and dc home on her usual inhaler of Trelegy along w/ prn use of levalabuterol or albuterol. (8) Diabetes mellitus: Asessment and Plan: patient was treated w/ basal and bolus insulin but was discharged home on Trulicity along w/ reduced dose of her glipizide. She will need ladderman follow up as outpatient to manage her glucose. (9) CKD (chronic kidney disease) stage 3, GFR 30-59 ml/min: (10) SARS-CoV-2 positive: Status: Resolved Asessment and Plan: patient had full treatment w/ Remdesivir during her last admission from 12/16 to 12/28 however, due to continued positivity on her PCR and due to uncertain exposure to family, patient was placed into isolation from 01/12 to 01/18. (11) Paroxysmal atrial flutter: Asessment and Plan: rhythm has remained in NSR and patient has completed her loading doses of her amiodarone and was dc home on pacerone 200 mg daily along w/ Toprol XL 50 mg daily. She was taken off her Eliquis but put on ASA. Eliquis was stopped d/t significant bleeding in which her Hb dropped to 6 gm. A definitive GI source was not seen by upper or lower endoscopy but it is suspected that she probably had either a diverticular bleed (although none was seen on her c-scope) or she has some small bowel bleeding such as an AVM. Capsule endoscopy could be considered however, I do not feel that it will change her management. She was treated w/ PPI while hospitalized but this was discontinued as her esophagitis was not bleeding and was directly related to her yeast infection. Continued use of PPI w/ no evidence for PUD or erosive esophagitis will only lead to further yeast infections and cocntribute to hypomagnesemia. Discharge Plan Disposition Patient Disposition: HOME Condition: Stable Discharge Details Reason For Visit: Weakness, GI bleed, COPD Admit Date/Time: 01/12/22 23:11 Admit Provider: Guy Harmon Attending Provider: Guy Harmon Primary Care Provider: Liliam Noble Home Meds and New Rx's Prescriptions: New amiodarone [Pacerone] 200 mg Tablet 200 mg PO DAILY Qty: 0 0RF ferrous sulfate 325 mg (65 mg iron) Tablet 325 mg PO BID Qty: 60 0RF furosemide 40 mg Tablet 40 mg PO BID@0830,1600 Qty: 60 0RF magnesium gluconate 27 mg magnesium (500 mg) Tablet 500 mg PO DAILY Qty: 30 0RF Inhaler, Assist Devices [Pocket Chamber] 1 ea miscellaneous DIRECTED Qty: 0 0RF nystatin 100,000 unit/mL Suspension 500,000 units PO 5X/DAY Qty: 200 0RF potassium chloride 10 mEq Capsule, Extended Release 20 meq PO DAILY Qty: 30 0RF spironolactone 25 mg Tablet 25 mg PO DAILY Qty: 30 0RF Trulicity 0.75 mg/0.5 mL pen injector 0.75 mg subcut QWEEK Qty: 2 0RF Continued Nicotrol 10 mg cartridge 1 inh inhalation 4-6XD PRN gabapentin 100 mg capsule 1 cap PO HS omega-3 fatty acids 1,000 mg Capsule 1,000 mg PO DAILY escitalopram oxalate [Lexapro] 20 mg Tablet 20 mg PO DAILY rosuvastatin [Crestor] 10 mg Tablet 10 mg PO DAILY cyclobenzaprine 10 mg Tablet 10 mg PO TID PRN PRN Trelegy Ellipta 100-62.5-25 mcg blister with device 1 inh INHALATION DAILY Spiriva Respimat 2.5 mcg/actuation Mist 2 puff inhalation DAILY Qty: 4 0RF metoprolol succinate 50 mg Tablet Extended Release 24 Hr 50 mg PO DAILY Qty: 30 0RF levalbuterol tartrate 45 mcg/actuation Hfa Aerosol Inhaler 2 puff inhalation Q4H PRN PRNQty: 15 0RF Inhaler, Assist Devices [Pocket Chamber] 1 ea miscellaneous DIRECTED Qty: 0 0RF Changed glipizide [Glucotrol XL] 5 mg Tablet Extended Release 24hr 5 mg PO DAILY Qty: 0 0RF Discontinued amiodarone [Pacerone] 200 mg Tablet 400 mg PO BID Qty: 90 0RF Rx Instructions: 400 mg bid x 10 days, 400 mg daily x 14 days then 200 mg daily Eliquis 5 mg Tablet 5 mg PO BID Qty: 60 0RF lisinopril 10 mg Tablet 5 mg PO DAILY Qty: 0 0RF No Action (DME) Oxygen Tank See Rx Instructions .ROUTE .MEDSUPPLY Qty: 1 Rx Instructions: As directed,2L with physical activity. cholecalciferol (vitamin D3) [Vitamin D3] 2,000 unit Capsule 2,000 unit PO DAILY cinnamon bark [Cinnamon] 500 mg Capsule 1,000 mg PO DAILY Rx Instructions: No dose given. albuterol sulfate [ProAir HFA] 90 mcg/actuation Hfa Aerosol Inhaler 2 puff Inhalation Q6H PRN PRN aspirin [Aspir-81] 81 mg Tablet,Delayed Release (Dr/Ec) 81 mg PO DAILY (DME) nebulizers misc See Dose Instructions .ROUTE .MEDSUPPLY Qty: 1 0RF Dose Instruction: As directed Rx Instructions: As directed Discharge Instructions Instructions: Dulaglutide (By injection), Heart Failure (DC), A-fib (Atrial Fibrillation) (DC), Anemia (DC) Stand Alone Forms: Nursing Discharge Form Referrals: Liliam Noble [Primary Care Provider] - 01/31/22 9:15 am Activity:: Activity as Tolerated Equipment/Supplies:: No Equipment Needed Diet:: Carb Counting Discharge Orders Discharge Orders: Discharge Order (Routine); Ordered 01/23/22 Ordered By: Luciano Coleman Other Ambulatory Orders: Basic Metabolic Panel (Routine) Timeframe: 1 Week Facility: [facility] - Location: Laboratory Outpatient - [facility] Ordered By: Luciano Coleman Complete Blood Count w/Diff (Routine) Timeframe: 1 Week Facility: [facility] - Location: Laboratory Outpatient - [facility] Ordered By: Luciano Coleman Discharge Data Discharge Date/Time-TO BE ENTERED AT DEPARTURE: 01/23/22 15:00 DS: Summary Time Spent with Patient providing and/or coordinating discharge services: Greater than 30 minutes Status at Discharge Functional status at discharge: independent ambulation Overall status at discharge: patient is back to baseline Mental Status: mental status grossly normal Speech and Movement: speech and movement normal Mood: congruent mood Affect: normal affect Exam Narrative Exam Narrative: Shira is sitting up in her chair, having finished her lunch; she is ready to return home. No dyspnea or chest pain or abdominal discomfort; normal BM's Lungs: clear anteriorly and just some faint basilar rales; no rhonchi or wheezing Heart: regular Abdomen: obese, soft, nontender Legs: left calf is edematous compared to right but nontender, left leg is nonedematous Psych Mental Status: mental status grossly normal Speech and Movement: speech and movement normal Mood: congruent mood Affect: normal affect DS: Data Vitals/I&O Vitals and I&O: Vital Signs Temperature 36.5 C 01/23/22 07:15 Temperature Source Tympanic 01/23/22 07:15 Pulse 73 01/23/22 07:15 Pulse Rhythm Regular 01/23/22 09:31 Pulse 93 H 01/14/22 19:28 Respiratory Rate 18 01/23/22 07:15 Respiratory Effort Non-Labored 01/23/22 09:31 Respiratory Depth Normal 01/23/22 09:31 Respiratory Pattern Normal 01/23/22 09:31 Blood Pressure 107/61 01/23/22 07:15 Blood Pressure Mean 65 01/16/22 09:56 Blood Pressure Position Supine 01/14/22 16:20 Pulse Oximetry 93 01/23/22 07:15 Oxygen Delivery Method Nasal Cannula 01/23/22 07:15 Oxygen Flow Rate 2 01/23/22 07:15 Pain Level 0 01/23/22 07:15 Comment 01/20/22 03:34 Intake & Output 01/22/22 01/23/22 01/23/22 23:59 11:59 23:59 Intake Total 260 / 980 240 / 240 Output Total 1300 / 1900 1200 / 1200 Balance -1040 / -920 -960 / -960 Intake: IV 20 / 40 Oral 240 / 940 240 / 240 Output: Urine 1300 / 1900 1200 / 1200 Other: Urine Color Yellow Yellow Urine Appearance Clear Clear Urine Odor Normal Normal Stool Size Large Stool Characteristics Soft Formed Brown Voiding Methods Bedside Commode Toilet Data Completed and Pending Labs on day of discharge: Labs from last 24 hours 01/23/22 01/23/22 06:30 06:30 WBC 7.21 RBC 3.10 L Hgb 9.6 L Hct 30.5 L MCV 98 H MCH 31.0 MCHC 31.5 L RDW 15.5 H Plt Count 236 MPV 8.9 Immature Gran % 0.6 Neutrophils % 65.4 Lymphocytes % 19.7 Monocytes % 11.8 Eosinophils % 2.1 Basophils % 0.4 Nucleated RBC % 0.0 Absolute Neutrophils 4.72 Absolute Lymphocytes 1.42 Absolute Monocytes 0.85 H Absolute Eosinophils 0.15 Absolute Basophils 0.03 Sodium 140 Potassium 3.9 Chloride 99 Carbon Dioxide 43.1 H Anion Gap -2.1 L BUN 22 H Creatinine 1.6 H Est GFR (CKD-EPI 2020) 34.70 Glucose 109 H Calcium 8.9 Magnesium 1.7 L NT-Pro-B Natriuret Pep 677 H PFSH All Active Problems (Updated 01/24/22 @ 00:06 by PEYMAN MADRIGAL) Medication monitoring encounter (Acute) Tubular adenoma of colon (Acute) Diverticulosis (Chronic) Colon polyps (Chronic) Esophagitis (Acute) Anemia (Chronic) Pleural effusion (Acute) Discharge planning issues (Acute) Tobacco abuse (Chronic) Depression (Chronic) Hypertension (Chronic) Dental abscess (Acute) COPD (chronic obstructive pulmonary disease) (Chronic) Personal history of nicotine dependence (Acute) Right ankle injury (Acute) Anemia (Chronic) Medical History CKD (chronic kidney disease) stage 3, GFR 30-59 ml/min Pt. denies Diabetes mellitus Diabetes mellitus 10/21/21 [facility], 1928–1983 visit not well controlled, A1C 8.2 Discharge planning issues On supplemental oxygen therapy on O2 of night. Is able to lay flat Paroxysmal atrial flutter Surgical History History of colonoscopy (~12/2021) Hx of hernia repair Social History Smoking/Tobacco Use Status: Former Tobacco Use Quit Date: 03/23/18 Smoking risk assessment performed?: Yes Alcohol Intake: current Alcohol Intake frequency: holidays/special occasions only Drug use: Never Substance use type: does not use Do you feel safe at home: Yes Do you feel safe in your relationship?: Yes
[2022-01-23] MEDS: Bacitracin 1 PACKET TP (14:53)
--- NOTE | 2022-01-23 14:54 | NUR.NOTE ---
Nursing Note:At approx. 14:45 this law writer entered the room to go over d/c paper work. This law writer told the pt that her midline needed to be removed, to which she replied, It's already out, I took it out myself. education was provided to pt as to why this wasn't safe. This law writer cleaned the site, it was not actively bleeding, bacitracin was applied with a pressure dressing.
--- NOTE | 2022-01-23 16:37 | PDOC.CMDIS ---
- If Service Date Differs Date of service: 01/23/22 Time of Service: 16:38 LACE Index Scoring Tool - Questions: Length of Stay (in days): 7 - 13 Acuity (Admit via E.D.?): Yes Comorbidities: Diabetes w/o Complication, Mild Liver/Renal Disease E.D. Visits: 2 - Answers: Total Score: 13 Risk of Readmission: High Risk Care Management Discharge Reason for Hospitalization: GI Bleed Discharge Plan: Shria will return home, with no new services, she will have new medications, CM sent application to [employer] to offset costs ($41). She will follow up with her PCP and plan of care as prescribed and transport via private vehicle with family. Patient/Family Education Needs: Review discharge instructions, discuss Ask Me Three.
--- NOTE | 2022-01-23 18:20 | PT.INDS ---
Date of service: 01/23/22 PT Notes Visit Reasons: Weakness, GI bleed, COPD Physical Therapy Inpatient Discharge Summary Date: 01/23/22 Dates of service: 01/21/2022 through 01/23/2022 This is a clinical summary of care provided for the duration of dates listed above. No charge was made in the completion of this documentation. Referring Doctor:? Sinai Brewer MD PT Orders: PT CONSULT: Limited ability Precautions: Standard, fall risk Patient Profile/Admitting Diagnosis:??71 yo female, S/P COVID and pneumonia, admitted with volume overload, GI bleed, anemia, and COPD exacerbation, having not been OOB or done any remarkable activity since admission on 01/12/22. PMHX:? All Active Problems? General weakness (Acute) Pleural effusion (Acute) Discharge planning issues (Acute) Tobacco abuse (Chronic) Depression (Chronic) Hypertension (Chronic) Dental abscess (Acute) COPD (chronic obstructive pulmonary disease) (Chronic) Personal history of nicotine dependence (Acute) Traumatic injury of left lower extremity (Acute) Rhabdomyolysis (Acute) Right ankle injury (Acute) Anemia (Chronic) Medical History? CKD (chronic kidney disease) stage 3, GFR 30-59 ml/min Pt. deniesDiabetes mellitus Diabetes mellitus 10/21/21 [facility] visit not well controlled, A1C 8.2Discharge planning issues On supplemental oxygen therapy on O2 of night. Is able to lay flat Surgical History? Hx of hernia repair Social History/Home Situation: Lives alone in a trailer, 21 y.o. granddaughter lives with her, but she works FT. Length of trailer is ~70 ft, ramp to enter with rail. Premorbid level of function: I using cane, recently increasing use of RW. Independent with self care and light meals, admitting recent difficult doing this needing a lot breaks, and was struggling to get out of chairs. Had 3 falls in the last month, and could barley get herself up. She continues to drive. Does not work. O2 constantly at 2L Current Functional Limitations: Close supervision with RW for short distance of ambulation, supervision with transfers, I bed mobility. Unable to walk household distance at this time. Equipment Owned/DME: RW, SPC Subjective:?NT. See most recent SOFTWARE DEVELOPMENT SPECIALIST notes. Objective:? General Observation: NT. See most recent SOFTWARE DEVELOPMENT SPECIALIST notes. Mental Status: NT. See most recent SOFTWARE DEVELOPMENT SPECIALIST notes. Pain: NT. See most recent SOFTWARE DEVELOPMENT SPECIALIST notes. Vital Signs: NT. See most recent SOFTWARE DEVELOPMENT SPECIALIST notes. ROM: Upper Extremity: Grossly 145 deg elevation paulina, elbows wrist WNL Lower Extremity: Grossly WFL bilaterally Strength: Right Upper Extremity: Grossly 4+/5 all planes R jean claude, elbow wrist 5/5 Left Upper Extremity: 4/5 all planes at jean claude, elbow and wrist 5/5 Right Lower Extremity: Hip flex 3/5, quad and HS 5/5, DF 3/5, PF 3+/5 Left Lower Extremity: Hip flex 3/5, quad and HS 4-/5, DF and PF 3+/5 BED MOBILITY/TRANSFERS? Supine-sit: I Sit-supine: I ? Sit-stand: I? Stand-sit: I ? GAIT? Assistive Device: SPC ? Weight bearing: Full Assist: S ? Distance:? 60' ? Deviation: Steady gait and pacing, no SOB, minimal LOB x1 with self-recovery Balance:? Static Sitting: Good Dynamic Sitting: Good Static Standing: Fair Dynamic Standing: Fair Assessment:??Patient is a 71 year old female referred to physical therapy services due to limited ability, developed during admission stay for management of volume overload, COPD exacerbation, anemia, GI bleed and what I think could be long COVID complications do to continued SOB and deconditioning.? Patient presents with LE weakness L>R limiting her functional ability, SOB, poor endurance limiting her household ambulation tolerance, poor balance allowing her high fall risk, and AMPAC score of 47% disability. Patient is not currently presenting safe to return home due to fall risk, and poor ambulation tolerance needed for safe return home. She will likely require swing status, with eventual outpatient rehab. Goals: Goals X1 week 1. Supine-Sit Independent MET 2. Sit-Supine Independent MET 3. Sit-Stand Independent at RW MET 4. Stand-Sit Independent MET 5. Bed-Chair Independent MET 6. Chair-Bed Independent MET 7. Gait 30 ft with RW, distant supervision MET 8. Ramp independently with rail MET 9. Independent with home exercise program NOT MET 10. Balance 5 sec tandem stance NOT MET DISCHARGE RECOMMENDATIONS: Patient will benefit from home health PT services in order to progress mobility level using least restrictive assistive ambulatory device, assess home safety, identify additional equipment needs, and establish a functional maintenance program that will increase ability of patient to remain at home. ? TREATMENT CODE/TIME: [place] Thank you for the opportunity to participate in the care of this patient. Neelam Gan PT, DPT, CLT [facility] [place], [place]
== END 2022-01-23 15:00 | disposition home or self-care (01) | DRG 377 ==
LOC: ER 23:51 → MS 01-13 00:11 → ICU 01-13 08:54 → MS 01-16 12:26
PROVIDERS: Internal Medicine; Surgery; Admitting Provider General Practice; Emergency Provider Emergency Medicine; PCP Nurse Practitioner Family; Visit Provider General Practice
PROC: 0DJ68ZZ Inspection of Stomach, Via Natural or Artificial Opening Endoscopic (ICD-10-PCS; CPT 43235; principal; 2022-01-13 10:45)
PROC: 0DJD8ZZ Inspection of Lower Intestinal Tract, Via Natural or Artificial Opening Endoscopic (ICD-10-PCS; CPT 45378; principal; 2022-01-14 10:30)
DX: K57.31 Diverticulosis of large intestine without perforation or abscess with bleeding (principal); I50.31 Acute diastolic (congestive) heart failure; U07.1 COVID-19; I48.92 Unspecified atrial flutter; I13.0 Hypertensive heart and chronic kidney disease with heart failure and stage 1 through stage 4 chronic kidney disease, or unspecified chronic kidney disease; D62 Acute posthemorrhagic anemia; Z68.41 Body mass index [BMI] 40.0-44.9, adult; B37.0 Candidal stomatitis; B37.81 Candidal esophagitis; R53.1 Weakness; J43.2 Centrilobular emphysema; N18.30 Chronic kidney disease, stage 3 unspecified; E11.22 Type 2 diabetes mellitus with diabetic chronic kidney disease; D12.0 Benign neoplasm of cecum; I95.9 Hypotension, unspecified; E66.9 Obesity, unspecified; Z79.01 Long term (current) use of anticoagulants; Z99.81 Dependence on supplemental oxygen; Z87.891 Personal history of nicotine dependence
CPT/HCPCS: 43235; 45380; 45385; 36415; 36430; 36592; 76942; 80048; 80053; 82805; 82947; 84145; 86850; 86900; 86901; 86920; 87040; 87635; 88305; 93005; 94618; 94640; 96365; 96366; 96375; 97110; 97162; 97530; 99223; 99285; 71045; 71046; 81003; 81015; 81373; 83735; 83880; 84132; 84484; 85014; 85018; 85025; 85610; 85730; 87070; 87205; 93010; 93970; 94668; 99222; 99231; 99232; 99233; 99239; 99291; J1940; J1941; J2250; J2704; J2930; J3475; J3480; J3490; J7620; P9016

== ENCOUNTER 2022-01-23 14:11 | Outpatient (CLI) | payer MEDICARE, SELFPAY | END 2022-01-23 14:12 | disposition home or self-care (01) | LOC: CARDOPNVT 14:11 | PROVIDERS: PCP Nurse Practitioner Family; Visit Provider Nurse Practitioner Family | DX: I48.92 Unspecified atrial flutter (principal) | CPT/HCPCS: 93270 ==

== ENCOUNTER 2022-02-25 09:11 | Outpatient (CLI) | payer MEDICARE, SELFPAY ==
--- NOTE | 2022-02-25 10:28 | W.CARDEVENT ---
Date of service: 02/25/22 Time of Service: 10:28 Cardiac Event Recorder Referring Provider:: Liliam Noble Indications:: Shortness of breath Cardiac Event Note: This was a 30-day cardiac event recorder. Patient however was monitored for less than a day During that time average heart rate was 70, rhythm was probably sinus. There was baseline artifact. QRS was widened consistent with a bundle branch block, undetermined type There were no apparent patient's symptoms
== END 2022-02-25 09:12 | disposition home or self-care (01) ==
LOC: CARDOPNVT 09:11
PROVIDERS: PCP Nurse Practitioner Family; Visit Provider Internal Medicine Cardiovascular Disease
DX: I45.5 Other specified heart block (principal)
CPT/HCPCS: 93272

== ENCOUNTER 2022-03-13 16:52 | Outpatient (REF) | payer MEDICARE, SELFPAY ==
[2022-03-13 20:28] LABS: HCT 40.5 % (36.0-46.0); HGB 13.3 g/dL (11.2-15.7); MCH 31.7 pg (27.0-33.0); MCHC 32.8 % (32.0-36.0); MCV 96 fL (80-95); MPV 9.8 fL (8.0-11.0); Platelet Count 280 10^3/uL (130-400); RDW 12.6 % (11.7-14.6); WBC 11.67 10^3/uL (4.4-10.8)
[2022-03-13 21:10] LABS: Hemoglobin A1C 9.2 % (<5.7)
[2022-03-13 21:43] LABS: ALT 15 U/L (14-59); AST 31 U/L (15-37); Albumin 2.9 g/dL (3.4-5.0); Alkaline Phosphatase 90 U/L (46-116); Anion Gap 10.8 mmol/L (3-11); BUN 17 mg/dL (7-18); Bilirubin, Total 0.6 mg/dL (0.2-1.0); CO2 33.2 mmol/L (21.0-32.0); CREATININE 1.6 mg/dL (0.55-1.02); Chloride 95 mmol/L (98-107); Estimated GFR 34.48 (mL/min/1.73m2); Glucose 248 mg/dL (74-106); NT-proBNP 1118 pg/mL (<300); Potassium 3.3 mmol/L (3.5-5.1); Sodium 139 mmol/L (136-145); Total Protein 6.4 g/dL (6.4-8.2)
== END 2022-03-13 16:53 | disposition home or self-care (01) ==
LOC: NCHCN 16:52
PROVIDERS: PCP Nurse Practitioner Family; Visit Provider Nurse Practitioner Family
DX: E11.9 Type 2 diabetes mellitus without complications (principal); D62 Acute posthemorrhagic anemia; N18.9 Chronic kidney disease, unspecified; K92.2 Gastrointestinal hemorrhage, unspecified; I48.92 Unspecified atrial flutter; J44.9 Chronic obstructive pulmonary disease, unspecified
CPT/HCPCS: 80053; 85027; 83036; 83880

== ENCOUNTER 2022-04-10 15:43 | Outpatient (REF) | payer MEDICARE, SELFPAY ==
[2022-04-10 15:52] LABS: Anion Gap 6.8 mmol/L (3-11); BUN 12 mg/dL (7-18); CO2 30.2 mmol/L (21.0-32.0); CREATININE 1.6 mg/dL (0.55-1.02); Chloride 105 mmol/L (98-107); Estimated GFR 34.48 (mL/min/1.73m2); Glucose 93 mg/dL (74-106); Potassium 4.8 mmol/L (3.5-5.1); Sodium 142 mmol/L (136-145)
== END 2022-04-10 15:44 | disposition home or self-care (01) ==
LOC: NCHCN 15:43
PROVIDERS: PCP Nurse Practitioner Family; Visit Provider Nurse Practitioner Family
DX: E11.9 Type 2 diabetes mellitus without complications (principal); I10 Essential (primary) hypertension; N28.9 Disorder of kidney and ureter, unspecified
CPT/HCPCS: 80048

== ENCOUNTER 2022-10-10 02:21 | Outpatient (CLI) | payer MEDICARE, SELFPAY ==
[2022-10-10] MEDS: Albuterol HFA 18 GM 200 PUFF INH IH (11:00)
[2022-10-10] MEDS: Inhaler, Assist Device 1 EACH MC (11:01)
--- NOTE | 2022-10-13 16:25 | W.PFT ---
Date of service: 10/10/22 Time of Service: 10:03 Pulmonary Function Test Result Indications: COPD Interpretation Spirometry: There is severe airflow limitation. There is no significant bronchodilator response. Lung Volumes: There is air trapping Diffusion Capacity: Normal diffusion Airway Pressure: There is increased airways resistance Note: Severe airflow limitation with an increased airways resistance andnormal diffusion. This likely represent COPD (chronic bronchitis). Clinical Correlation therefore is recommended.
== END 2022-10-10 02:22 | disposition home or self-care (01) ==
LOC: RT 02:22
PROVIDERS: PCP Nurse Practitioner Family; Visit Provider Student in an Organized Health Care Education/Training Program
DX: J44.9 Chronic obstructive pulmonary disease, unspecified (principal)
CPT/HCPCS: 94060; 94726; 94729

== ENCOUNTER 2022-12-02 16:39 | Outpatient (REF) | payer MEDICARE, SELFPAY ==
[2022-12-02 17:16] LABS: HCT 42.6 % (36.0-46.0); HGB 13.7 g/dL (11.2-15.7); MCH 31.2 pg (27.0-33.0); MCHC 32.2 % (32.0-36.0); MCV 97 fL (80-95); MPV 9.5 fL (8.0-11.0); Platelet Count 280 10^3/uL (130-400); RBC 4.39 10^6/uL (3.93-5.22); RDW 13.4 % (11.7-14.6); RDW-SD 48.4 fL; WBC 10.05 10^3/uL (4.4-10.8)
[2022-12-02 18:28] LABS: ALT 19 U/L (14-59); AST 17 U/L (15-37); Albumin 3.1 g/dL (3.4-5.0); Alkaline Phosphatase 93 U/L (46-116); BUN 25 mg/dL (7-18); Bilirubin, Total 0.4 mg/dL (0.2-1.0); CREATININE 2.1 mg/dL (0.55-1.02); Calcium 9.1 mg/dL (8.5-10.1); Calculated LDL 96 mg/dL (<100); Chloride 100 mmol/L (98-107); Cholesterol 181 mg/dL (<200); Estimated GFR 24.88 (mL/min/1.73m2); Glucose 276 mg/dL (74-106); HDL Cholesterol 63 mg/dL (40-60); Potassium 4.7 mmol/L (3.5-5.1); Sodium 138 mmol/L (136-145); TSH 3.99 uIU/mL (0.36-3.74); Total Protein 7.5 g/dL (6.4-8.2); Triglyceride 113 mg/dL (<150)
[2022-12-02 20:08] LABS: FREE T4 1.17 ng/dL (0.76-1.46)
== END 2022-12-02 16:40 | disposition home or self-care (01) ==
LOC: NCHCN 16:39
PROVIDERS: PCP Nurse Practitioner Family; Visit Provider Nurse Practitioner Family
DX: E11.9 Type 2 diabetes mellitus without complications (principal); I10 Essential (primary) hypertension; E78.5 Hyperlipidemia, unspecified; N18.9 Chronic kidney disease, unspecified; I48.91 Unspecified atrial fibrillation; J44.9 Chronic obstructive pulmonary disease, unspecified; Z99.81 Dependence on supplemental oxygen
CPT/HCPCS: 80053; 80061; 85027; 84439; 84443

== ENCOUNTER 2022-12-29 11:27 | Outpatient (REF) | payer MEDICARE, SELFPAY ==
[2022-12-29 16:31] LABS: Anion Gap 6.5 mmol/L (3-11); BUN 33 mg/dL (7-18); CO2 30.5 mmol/L (21.0-32.0); CREATININE 2.1 mg/dL (0.55-1.02); Calcium 9.7 mg/dL (8.5-10.1); Chloride 99 mmol/L (98-107); Estimated GFR 24.88 (mL/min/1.73m2); Glucose 255 mg/dL (74-106); Potassium 5.1 mmol/L (3.5-5.1); Sodium 136 mmol/L (136-145)
== END 2022-12-29 11:28 | disposition home or self-care (01) ==
LOC: NCHCN 11:27
PROVIDERS: PCP Nurse Practitioner Family; Visit Provider Nurse Practitioner Family
DX: N18.4 Chronic kidney disease, stage 4 (severe) (principal)
CPT/HCPCS: 80048

== ENCOUNTER 2023-01-20 19:54 | Emergency (ER) | payer MEDICARE, SELFPAY ==
[2023-01-20] VITALS (47 sets, daily range): BP systolic 63–187; BP diastolic 13–146; PULSE 59–183; RESP 12–48; TEMP 36.2; O2SAT 71–98
--- NOTE | 2023-01-20 20:00 | RT.EKG_ITS ---
APPROVED REPORT Exam: Resting ECG Reason for Exam: short of breath Patient Location: E HR:59 bpm ECG Measurements Heart Rate 59 AXIS AZ [id number] P [id number] QRSd 174 QRS -96 QT 498 T 49 QTc 492 Conclusion Junctional rhythm...absent P waves, slow V-rate Right bundle branch block...QRSd>120, terminal axis(90,270) Anteroseptal infarct, age indeterminate...Q >35mS, T neg, V1-V2 bradycardia, wide complex irregular, likely afib. Patient has a history of afib. EKG has changed fro m previous EKG. No STEMI.
--- NOTE | 2023-01-20 20:19 | W.ED.GENAD ---
Discharge Plan Disposition Patient Disposition: Transfer-Acute Inpatient Care Specific Acute Inpt Facility: [facility] Condition: Serious Discharge Details Clinical Impression: Shortness of breath, Acute renal failure, Congestive heart failure, Diarrhea, Weakness, Abnormal ECG, Hypoxia, Acute exacerbation of chronic obstructive pulmonary disease, Pneumonia, Acute hyperkalemia Primary Care Provider: Liliam Noble ED Provider: Angelita Harris Home Meds and New Rx's Prescriptions: No Action Nicotrol 10 mg cartridge 1 inh inhalation 4-6XD PRN nystatin 100,000 unit/mL suspension 5 ml PO QID 7 Days Qty: 140 6RF Rx Instructions: Use as needed when developing thrush (DME) Oxygen Tank See Rx Instructions .ROUTE .MEDSUPPLY Qty: 1 Rx Instructions: As directed,2L with physical activity. Januvia 50 mg tablet 50 mg PO DAILY rosuvastatin [Crestor] 10 mg tablet 20 mg PO DAILY gabapentin 100 mg capsule 1 cap PO HS amiodarone [Pacerone] 200 mg Tablet 200 mg PO DAILY Qty: 0 0RF ferrous sulfate 325 mg (65 mg iron) Tablet 325 mg PO BID Qty: 60 0RF furosemide 40 mg Tablet 40 mg PO BID@0830,1600 Qty: 60 0RF Inhaler, Assist Devices [Pocket Chamber] 1 ea miscellaneous DIRECTED Qty: 0 0RF spironolactone 25 mg Tablet 25 mg PO DAILY Qty: 30 0RF glipizide [Glucotrol XL] 5 mg Tablet Extended Release 24hr 5 mg PO DAILY Qty: 0 0RF omega-3 fatty acids 1,000 mg Capsule 1,000 mg PO DAILY escitalopram oxalate [Lexapro] 20 mg Tablet 20 mg PO DAILY cholecalciferol (vitamin D3) [Vitamin D3] 2,000 unit Capsule 2,000 unit PO DAILY cinnamon bark [Cinnamon] 500 mg Capsule 1,000 mg PO DAILY Rx Instructions: No dose given. albuterol sulfate [ProAir HFA] 90 mcg/actuation Hfa Aerosol Inhaler 2 puff Inhalation Q6H PRN PRN cyclobenzaprine 10 mg Tablet 10 mg PO TID PRN PRN (DME) nebulizers misc See Dose Instructions .ROUTE .MEDSUPPLY Qty: 1 0RF Dose Instruction: As directed Rx Instructions: As directed Trelegy Ellipta 100-62.5-25 mcg blister with device 1 inh INHALATION DAILY metoprolol succinate 50 mg Tablet Extended Release 24 Hr 50 mg PO DAILY Qty: 30 0RF Inhaler, Assist Devices [Pocket Chamber] 1 ea miscellaneous DIRECTED Qty: 0 0RF Discharge Data Discharge Physician: Angelita Harris Medical Decision Making This is an unfortunate 72-year-old female with history of COPD and chronic renal failure who presents with 2 weeks of shortness of breath cough productive of yellow sputum and generalized weakness. She was hospitalized a month ago with COVID. She has supplemental oxygen at home which she was prescribed to use as needed but which she has been using continuously because of her shortness of breath. She denies any chest pain but does have back and shoulder pain. She does have a history of atrial fibrillation and today presents in a wide-complex rhythm. We are concerned about worsening renal failure, other electrolyte abnormalities, and shortness of breath which may be secondary to recurrent pneumonia, congestive heart failure and/or COPD exacerbation. My plan is to obtain IV access and blood work to evaluate her renal function. We will give her DuoNebs and Solu-Medrol, we will draw blood cultures and get a VBG and portable chest x-ray. If her renal function is worse and she is hyperkalemic we will treat that appropriately. We will check a urinalysis and obtain blood cultures. She tells me she is too weak to walk but does not appear to have any focal neurologic deficits or headache. She was initially hypertensive and we did establish 2 IVs and will give her supplemental oxygen as needed BiPAP and or high flow O2 if she does not improve after beta agonist. She denies any pleuritic chest pain but other concerns are for PE, ACS or infection such as COVID flu or RSV which we will also test for. She will definitely require admission and may require transfer to a tertiary care center if she requires dialysis Differential Diagnosis Differential Diagnosis: COPD exacerbation, electrolyte abnormality, CHF, PE, pneumonia, renal failu Medical Records Medical records reviewed: Yes I reviewed the patient's medical records. Imaging Data Radiologic Study: Imaging: X-Ray (Portable chest x-ray) Radiologist's impression: 1. Interstitial infiltrates and rash or edema. 2. Bibasilar consolidations not excluded. 3. Mild bilateral pleural effusions versus pleurOparenchymal scar. Lab Data Lab results reviewed: Yes I reviewed the patient's lab results. Lab results narrative: acute kidney injury, hyperkalemia, elevated BNP ECG Data Attestation: I personally reviewed and interpreted this ECG (s) as follows: Prior ECG tracings: available for review Interpretation: wide complex slightly irregular, possible afib vs junctional rhythm. HPI General Date/Time Provider Initiated Documentation: 01/20/23 20:19. Limitations to Documentation: no limitations. Information obtained by: patient and RN/MD. HPI Narrative: Time seen was 2014 in bed 8. The patient is a 72-year-old female with history of stage III kidney disease, diabetes and COPD who presents with 2 weeks of shortness of breath and cough productive of yellow sputum. The patient was brought in by rescue and had 1 DuoNeb in route. The patient lives alone but has a daughter, Effie, who takes care of her mother and who feeds her. She tells me she was hospitalized with COVID and pneumonia a month ago. She tells me she was not discharged on antibiotics. She was well until 2 weeks ago when she began having shortness of breath and a worsening cough as well as mild sore throat and nasal congestion with loss of smell. She was prescribed home oxygen as needed but has been using 4 L all the time. Initially she denied any pain but then tells me she has had several weeks of upper back pain which she describes as mild and not pleuritic. She states she had diarrhea today. She denied any leg swelling or abdominal pain, but tells me that her legs have been weak and are giving out on her and she is having difficulty walking. She was also complaining of dizziness which she describes as feeling as though the room is spinning. She denied any earache or discharge or barotrauma. She denies any abdominal pain. She tells me that she has had uncontrollable twitching for about a year but has not been diagnosed with anything. She is unsure whether she has had a fever but does states she is more short of breath than usual. She has used her rescue inhaler 4 times today. She says occasionally her shortness of breath is worse with recumbency. She denies any chest pain and denies any prior history of coronary artery disease. She tells me that her leg weakness is the main reason she called the ambulance to bring her in. She tells me that her back pain has been going on for quite some time, she believes for at least several weeks. The patient does have a history of COPD. She denies any history of thromboembolic disease or coronary disease/SD. She tells me she does not have an advanced directive and this issue has not been discussed with her yet. She is thinking about it. The patient quit smoking 4 years ago. The patient had diarrhea today no vomiting. The patient has not done a COVID test at home. Related Data Home Medications Medication Instructions Recorded Confirmed albuterol sulfate 90 mcg/actuation 2 puff inhalation Q6H PRN PRN 11/25/17 01/20/23 aerosol inhaler (ProAir HFA) cholecalciferol (vitamin D3) 50 2,000 unit PO DAILY 11/25/17 01/20/23 mcg (2,000 unit) capsule (Vitamin D3) cinnamon bark 500 mg capsule 1,000 mg PO DAILY 11/25/17 01/20/23 (Cinnamon) cyclobenzaprine 10 mg tablet 10 mg PO TID PRN PRN 11/25/17 01/20/23 escitalopram oxalate 20 mg tablet 20 mg PO DAILY 11/25/17 01/20/23 (Lexapro) omega-3 fatty acids 1,000 mg 1,000 mg PO DAILY 11/25/17 01/20/23 capsule nebulizers #1 ea 11/30/17 06/30/22 fluticasone fur. 100 mcg-umeclid 1 inh inhalation DAILY 09/30/20 01/20/23 62.5 mcg-vilant 25 mcg inhalat.powder (Trelegy Ellipta) Oxygen #1 ea 10/25/20 06/30/22 gabapentin 100 mg capsule 1 cap PO HS leg cramps 10/29/21 01/20/23 nicotine 10 mg inhalation 1 inh inhalation 4-6XD PRN 11/11/21 01/20/23 cartridge (Nicotrol) Inhaler, Assist Devices [Pocket 1 ea miscellaneous DIRECTED ##0 12/28/21 01/20/23 Chamber] metoprolol succinate 50 mg 50 mg PO DAILY #30 tabs 12/28/21 01/20/23 tablet,extended release 24 hr Inhaler, Assist Devices [Pocket 1 ea miscellaneous DIRECTED ##0 01/23/22 01/20/23 Chamber] amiodarone 200 mg tablet (Pacerone) 200 mg PO DAILY #0 tabs 01/23/22 01/20/23 ferrous sulfate 325 mg (65 mg 325 mg PO BID #60 tabs 01/23/22 01/20/23 iron) tablet furosemide 40 mg tablet 40 mg PO BID@0830,1600 #60 tabs 01/23/22 01/20/23 glipizide 5 mg tablet, extended 5 mg PO DAILY #0 tabs 01/23/22 01/20/23 release 24 hr (Glucotrol XL) spironolactone 25 mg tablet 25 mg PO DAILY #30 tabs 01/23/22 01/20/23 rosuvastatin 10 mg tablet (Crestor) 20 mg PO DAILY 05/22/22 01/20/23 sitagliptin phosphate 50 mg tablet 50 mg PO DAILY 05/22/22 01/20/23 (Januvia) nystatin 100,000 unit/mL oral 5 ml PO QID 7 days #140 mL 06/30/22 01/20/23 suspension Previous Rx's Medication Instructions Recorded nebulizers #1 ea 11/30/17 Inhaler, Assist Devices [Pocket 1 ea miscellaneous DIRECTED ##0 12/28/21 Chamber] metoprolol succinate 50 mg 50 mg PO DAILY #30 tabs 12/28/21 tablet,extended release 24 hr Inhaler, Assist Devices [Pocket 1 ea miscellaneous DIRECTED ##0 01/23/22 Chamber] amiodarone 200 mg tablet (Pacerone) 200 mg PO DAILY #0 tabs 01/23/22 ferrous sulfate 325 mg (65 mg 325 mg PO BID #60 tabs 01/23/22 iron) tablet furosemide 40 mg tablet 40 mg PO BID@0830,1600 #60 tabs 01/23/22 glipizide 5 mg tablet, extended 5 mg PO DAILY #0 tabs 01/23/22 release 24 hr (Glucotrol XL) spironolactone 25 mg tablet 25 mg PO DAILY #30 tabs 01/23/22 nystatin 100,000 unit/mL oral 5 ml PO QID 7 days #140 mL 06/30/22 suspension Allergies Allergy/AdvReac Type Severity Reaction Status Date / Time codeine Allergy Mild Verified 01/20/23 23:25 fluticasone Allergy Mild Verified 06/30/22 15:01 [From Advair Diskus] salmeterol Allergy Mild Verified 06/30/22 15:01 [From Advair Diskus] Sulfa (Sulfonamide Allergy Mild Unknown Verified 01/20/23 23:25 Antibiotics) General Stated Complaint: GenMedical VIRY: 2 Review of Systems Narrative: see hpi PFSH All Active Problems (Updated 01/20/23 @ 23:26 by Angelita Harris MD) Acute hyperkalemia (Acute) Pneumonia (Acute) Acute exacerbation of chronic obstructive pulmonary disease (Acute) Hypoxia (Acute) Abnormal ECG (Acute) Weakness (Acute) Diarrhea (Acute) Congestive heart failure (Chronic) Acute renal failure (Acute) Shortness of breath (Acute) Medication monitoring encounter (Acute) Tubular adenoma of colon (Acute) Diverticulosis (Chronic) Colon polyps (Chronic) Anemia (Chronic) Pleural effusion (Acute) Discharge planning issues (Acute) Tobacco abuse (Chronic) Depression (Chronic) Hypertension (Chronic) Dental abscess (Acute) COPD (chronic obstructive pulmonary disease) (Chronic) Personal history of nicotine dependence (Acute) Right ankle injury (Acute) Anemia (Chronic) Medical History Afib Paroxysmal atrial flutter On supplemental oxygen therapy on O2 of night. Is able to lay flat CKD (chronic kidney disease) stage 3, GFR 30-59 ml/min Pt. denies Diabetes mellitus 10/21/21 [facility] visit not well controlled, A1C 8.2 Discharge planning issues Diabetes mellitus Surgical History History of colonoscopy (~12/2021) Hx of hernia repair Social History Smoking/Tobacco Use Status: Former Tobacco Use Quit Date: 03/23/18 Smoking risk assessment performed?: Yes Alcohol Intake: current Alcohol Intake frequency: holidays/special occasions only Drug use: Never Substance use type: does not use Do you feel safe at home: Yes Do you feel safe in your relationship?: Yes Exam Narrative Exam Narrative: The patient is a well-developed well-nourished female with an elevated BMI. She was slightly tachycardic and mildly hypotensive with a blood pressure of 88/31 and initial heart rate was 112. Her respiratory rate was 22-24. She was not febrile. Her O2 sat ranged between 87 and 90 but did not have a good pleth waveform Const General: cooperative, well developed, well groomed, anxious, not diaphoretic and well hydrated Nutritional Appearance: overweight Orientation: alert, awake and oriented x3 Other: The patient does appear short of breath at rest. She is able to speak in full sentences. [facility] Head: normal to inspection, normocephalic and atraumatic Ears: hearing grossly normal bilaterally and external ears normal General nose exam: external nose normal, nares normal and no nasal discharge Face and sinus: normal facial exam, sinuses nontender and face symmetric Mouth: oropharynx normal and other (Normal phonation. The patient is handling secretions.) Throat: posterior oropharynx normal and uvula midline Other: Mucous membranes are dry. There is a brownish discoloration to her tongue. Uvula was midline. There is no tonsillar hypertrophy or exudate. She has normal phonation and no cricoid tenderness Eyes General: appearance normal, both eyes and all related structures Eyelids: eyelids normal Sclera: sclerae normal Cornea: corneas normal Pupils: PERRL EOM: EOM intact bilaterally and No nystagmus Other: Conjunctiva are slightly pale. No photophobia. Neck Neck: normal visual inspection, full ROM, no lymphadenopathy, no meningeal signs, trachea midline and supple Lymphatic: no lymphadenopathy noted Other: No meningeal signs. Chest Chest: normal inspection of the chest Other: Chest is nontender. She has symmetric expansion. Resp Effort & Inspection: able to speak in complete sentences, audible wheezes, cough, no nasal flaring, no respiratory distress, no retractions, no stridor, no tracheal deviation, no use of accessory muscles and prolonged expiratory phase Auscultation: abnormal I/E ratio, no rales, no rhonchi and wheezes Other: The patient has audible wheezing. She is able to speak in full sentences. She does have a cough and mild pursed lip breathing. She is mildly tachypneic. Cardio Jugular venous pressure: no JVD Palpation: normal PMI Rate: regular rate Rhythm: regular rhythm Heart Sounds: S1 normal, S2 normal, no gallops, no murmurs and no rubs GI Inspection: normal to inspection and non-distended Palpation: soft, no hepatosplenomegaly, no guarding and nontender Percussion: normal to percussion Auscultation: normal bowel sounds General: No CVA tenderness Back/Spine/Pelvis Back: no CVA tenderness and No back tenderness Cervical Spine: normal cervical lordosis, cervical ROM normal, No cervical muscular tenderness, No pain with cervical ROM, No cervical spinal tenderness and No step off deformity Thoracic/Lumbar Spine: thoracic and lumbar spine normal to inspection, No thoracic spinal tenderness and No lumbar spinal tenderness Pelvis: no pain with anterior-posterior compression and no pain with lateral compression Skin General skin exam: no rashes or lesions noted, turgor normal, no petechiae and no purpura Lesions: no lesions Rashes: no rashes Trauma: no lacerations or abrasions Other: Her skin is pale for ethnicity Neuro General: patient alert, patient awake, patient oriented x3, moves all extremities, no meningeal signs, no focal motor deficits and CN's II-XI intact bilaterally Cranial Nerves: CN's II-XI intact bilaterally, PERRL, accommodation normal, EOM intact bilaterally, no nystagmus, facial strength normal, tongue midline, hearing normal and no nystagmus Cognition: normal cognition Speech: speech normal Sensory Exam: no sensory deficits noted Extrem General: normal to inspection, capillary refill normal, no clubbing, cyanosis or edema and no calf tenderness Other: She appears to be perfusing well. There is no peripheral cyanosis. She has mild bilateral peripheral edema. The patient has trouble lifting her legs against resistance. Psych Appearance: grossly normal Affect: normal affect Attitude: cooperative Thought Process: normal Thought Content: normal Insight: insight good Judgment: judgment good Other: The patient appears to have capacity make medical decisions. Course The patient's respiratory status improved. We did put her on BiPAP because she was retaining bicarb. After insertion of the Ortega catheter there is only a minimal amount of urine. I have written for an additional 80 mg of Lasix. Reevaluation(s) Time: 21:25 Reevaluation: The patient's labs reveal an elevated creatinine at 5.9 her previous 1 on December 29 was 2.1. She appears to be in acute renal failure. I am going to attempt to transfer her to [facility]. I have notified the patient and she would prefer to go to [facility] over [facility]. Time: 21:42 Reevaluation #2: [facility] is short on beds. I have spoken with them and they will be calling me back. I have spoken with the patient's daughter Effie, and updated her on the patient's condition. Her COVID flu and RSV are negative Time: 21:58 Additional Reevaluation(s): The patient's daughter was at the bedside. I have discussed the patient's clinical condition with the hospitalist he asked that we place a Ortega to monitor her urine output. Her daughter tells me she has had decreased urinary output but has also not been drinking as much. I am still awaiting a callback from the transfer center. At [address] Lazaro the critical care fellow at [facility] who accepted the patient for Dr. Emanuel Johnson. Consultations Consultation #1: I discussed with the hospitalist but I also discussed with the critical care fellow Teddy Lazaro at [facility]. He excepted the patient for Dr. Emanuel Jhonson. The patient will be transferred to the medical ICU at [facility] Time: 23:23 Vital Signs Vital signs: Vital Signs Temperature 36.2 C L 01/20/23 19:56 Pulse 112 H 01/20/23 19:56 Respiratory Rate 24 01/20/23 19:56 Blood Pressure 88/31 L 01/20/23 19:56 Pulse Oximetry 87 L 01/20/23 19:56 Temperature 36.2 C L 01/20/23 19:56 Pulse 67 01/20/23 20:05 Respiratory Rate 22 01/20/23 20:05 Respiratory Effort Short of Breath 01/20/23 20:05 Respiratory Depth Normal 01/20/23 20:05 Respiratory Pattern Normal 01/20/23 20:05 Blood Pressure 88/31 L 01/20/23 20:05 Pulse Oximetry 90 L 01/20/23 20:05 Oxygen Delivery Method Nasal Cannula 01/20/23 20:05 Oxygen Flow Rate 4 01/20/23 20:05 Pain Level 0 01/20/23 20:05 Critical Care Time Critical Care Time Critical Care Time: Yes Total Critical Care Time: 62 Attestation: This includes time at the bedside, discussion with the family. Consultation with the hospitalist and critical care fellow and attending at [facility]. Interpretation and review of EKGs, labs and radiographs. Review of old records and response to treatment
[2023-01-20 20:37] LABS: Abs Immature Grans 0.06 10^3/uL (0.0-0.06); Absolute Basophil Count 0.05 10^3/uL (0.0-0.2); Absolute Eosinophil Count 0.05 10^3/uL (0.0-0.7); Absolute Lymphocyte Count 1.32 10^3/uL (1.2-3.4); Absolute Monocyte Count 1.23 10^3/uL (0.1-0.8); Absolute Neutrophil Count 14.39 10^3/uL (1.2-6.7); Basophils % 0.3; Eosinophils % 0.3; HCT 41.8 % (36.0-46.0); Immature Grans % 0.4; Lymphocytes % 7.7; MCH 31.2 pg (27.0-33.0); MCHC 31.1 % (32.0-36.0); MCV 100 fL (80-95); MPV 9.3 fL (8.0-11.0); Monocytes % 7.2; Neutrophils % 84.1; Platelet Count 301 10^3/uL (130-400); RBC 4.17 10^6/uL (3.93-5.22); RDW 14.6 % (11.7-14.6); RDW-SD 54.1 fL; WBC 17.11 10^3/uL (4.4-10.8)
[2023-01-20] MEDS: Albuterol/Ipratropium 3 ML UPD VIAL UPD ×2 (20:44→22:00)
[2023-01-20] MEDS: methylPREDNISolone SUCC 125 MG VIAL IVP (20:44)
[2023-01-20 20:50] LABS: PTT Activated 23.5 sec (23.6-32.8); Prothrombin Time 10.3 sec (9.1-11.1)
[2023-01-20 21:02] LABS: ALT 18 U/L (14-59); AST 22 U/L (15-37); Albumin 2.9 g/dL (3.4-5.0); Alkaline Phosphatase 103 U/L (46-116); Anion Gap 8.8 mmol/L (3-11); BUN 79 mg/dL (7-18); Bilirubin, Total 0.8 mg/dL (0.2-1.0); CO2 26.2 mmol/L (21.0-32.0); Calcium 9.5 mg/dL (8.5-10.1); Chloride 98 mmol/L (98-107); Glucose 286 mg/dL (74-106); Magnesium 1.9 mg/dL (1.8-2.4); NT-proBNP 6610 pg/mL (<300); Sodium 133 mmol/L (136-145); Total Protein 7.5 g/dL (6.4-8.2); Troponin I < 50 ng/L (<or=60)
[2023-01-20 21:04] LABS: CREATININE 5.9 mg/dL (0.55-1.02)
--- NOTE | 2023-01-20 21:05 | DI.RAD_ITS ---
Exam(s) XR PORTABLE CHEST AP EXAM: XR PORTABLE CHEST AP CLINICAL HISTORY: shortness of breath TECHNIQUE: 2D digital imaging was performed. COMPARISON: CR,XR XR PORTABLE CHEST AP from 01/18/2022 FINDINGS: Exam extremely limited by under penetration particularly at the lung bases. Leads overlie the chest. Thecardiac silhouette is grossly enlarged, unchanged. The upper lobes appear clear. Basilar infil trates and small effusions not excluded.. IMPRESSION: Extremely limited exam. Cardiomegaly. The basilar infiltrates and small effusions not excluded. Re commend repeat exam. DATA REPOSITORY: RADIATION DOSE DELIVERED:
[2023-01-20 21:09] LABS: D-Dimer 3764 ng/mlFEU (<500)
--- NOTE | 2023-01-20 21:15 | RT.EKG_ITS ---
APPROVED REPORT Exam: Resting ECG Reason for Exam: arrhythmia Patient Location: E HR:60 bpm ECG Measurements Heart Rate 60 AXIS [place] [id number] P [id number] QRSd 173 QRS -177 QT 480 T 15 QTc 480 Conclusion Junctional rhythm...absent P waves, slow V-rate Right bundle branch block...QRSd>120, terminal axis(90,270) Anteroseptal infarct, age indeterminate...Q >35mS, T neg, V1-V2 afib vs junctional tachycardia, wide complex low voltage , t wave inversion II,III, aVR V1, no STEMI, no significant changes from previous.
[2023-01-20 21:16] LABS: COVID-19 PCR Negative (Negative); Influenza A PCR Negative (Negative); Influenza B PCR Negative (Negative); RSV PCR Negative (Negative)
[2023-01-20 21:20] LABS: Source Nasopharynx
--- NOTE | 2023-01-20 21:24 | NUR.NOTE ---
this rn attempted to get a manual BP on the PT but was unable. ED MD notified. Nursing Note:
[2023-01-20 21:50] LABS: BE (Venous) 0 mmol/L (-2-3); HCO3 (Venous) 27 mmol/L (23-28); O2 Sat (Venous) 57 %; TCO2 (Venous) 26 mmol/L (24-29); pH (Venous) 7.22 (7.31-7.41); pO2 (Venous) 33 mmHg
[2023-01-20 21:54] LABS: pCO2 (Venous) 66 mmHg (41-51)
[2023-01-20] MEDS: Insulin REGULAR-Human 100 UNITS/ML UNIT 10 UNITS IV (21:54)
[2023-01-20] MEDS: Dextrose 50%-Water 25 GM/50 ML SYR IVP (21:55)
[2023-01-20] MEDS: Sodium Bicarbonate 50 MEQ/50 ML SYR IVP (21:58)
[2023-01-20] MEDS: Calcium Gluconate 4.65 MEQ/10 ML VIAL 4.65 MG IVP (22:00)
--- NOTE | 2023-01-20 22:07 | DI.VRAD_ITS ---
PROCEDURE INFORMATION: Exam: XR Chest Exam date and time: 01/20/2023 9:33 PM Age: 72 years old Clinical indication: Shortness of breath; Patient HX: SOB TECHNIQUE: Imaging protocol: Radiologic exam of the chest. Views: 1 view. COMPARISON: CR XR PORTABLE CHEST AP 01/18/2022 8:01 PM FINDINGS: Tubes, catheters and devices: Monitoring wires noted. Lungs: Mild opacity noted in the lung bases. This is partially related to overlying soft tissue/breast shadows. Pulmonary vessels are not congested. Mild interstitial prominence noted. Pleural spaces: Mild blunting noted in the costophrenic angles, stable on the right and improved on the left, compared to 01/18/2022. No pneumothorax observed. Heart/Mediastinum: Moderate cardiomegaly, similar to previous. Bones/joints: Unremarkable. IMPRESSION: 1. Interstitial infiltrates and/or edema. 2. Basilar consolidations not excluded. 3. Mild bilateral pleural effusions versus pleuroparenchymal scar. Dictated and Authenticated by: [place] MD. Ordering:SEJAL Goldstein MD
[2023-01-20] MEDS: Furosemide 20 MG/2 ML VIAL IVP (22:27)
[2023-01-20] MEDS: cefTRIAXone 2 GM/50 ML BAG IVPB (22:28)
[2023-01-20 22:37] LABS: Bilirubin Small (Negative); Blood Trace-intact (Negative); Clarity Cloudy (Clear); Glucose Negative (Negative); Ketones Negative (Negative); Leukocyte Esterase Negative (Negative); Nitrite Negative (Negative); Specific Gravity >= 1.030 (1.005-1.025)
[2023-01-20 22:59] LABS: Bacteria Rare HPF (Negative); Crystals Many Amorphous HPF (Negative); Epithelial Cells Many HPF (Negative); Mucus Trace (Negative); Other Cells Rare Transitional (Negative)
[2023-01-20 23:00] LABS: C & S Indicated? No/Sq. Contamination
[2023-01-20] MEDS: Furosemide 100 MG/10 ML VIAL 80 MG IVP (23:11)
[2023-01-20] MEDS: Normal Saline 1,000 ML 100 ML IV (23:38)
[2023-01-21] VITALS (32 sets, daily range): BP systolic 72–186; BP diastolic 16–137; PULSE 65–133; RESP 12–37; O2SAT 88–93
[2023-01-21 00:09] LABS: BE (Venous) 0 mmol/L (-2-3); HCO3 (Venous) 27 mmol/L (23-28); O2 Sat (Venous) 83 %; TCO2 (Venous) 25 mmol/L (24-29); pCO2 (Venous) 58 mmHg (41-51); pH (Venous) 7.27 (7.31-7.41); pO2 (Venous) 48 mmHg
[2023-01-21 01:03] LABS: Troponin I < 50 ng/L (<or=60)
== END 2023-01-21 03:44 | disposition short-term general hospital (02) ==
PROVIDERS: Emergency Provider Emergency Medicine Emergency Medical Services; PCP Nurse Practitioner Family
DX: E87.5 Hyperkalemia (principal); I50.9 Heart failure, unspecified; N17.9 Acute kidney failure, unspecified; R06.02 Shortness of breath; J18.9 Pneumonia, unspecified organism; J44.1 Chronic obstructive pulmonary disease with (acute) exacerbation; R09.02 Hypoxemia; R94.31 Abnormal electrocardiogram [ECG] [EKG]; R53.1 Weakness
CPT/HCPCS: 51702; 80053; 82805; 82962; 87040; 87637; 93005; 94640; 96365; 96375; 99291; 71045; 81003; 81015; 83605; 83735; 83880; 84484; 85025; 85379; 85610; 85730; 93010; J0612; J1940; J1941; J2930; J7620

== ENCOUNTER 2023-01-23 16:13 | Inpatient (IN) | payer MEDICARE, SELFPAY ==
[2023-01-23 16:19] VITALS: BP 144/68; PULSE 84; RESP 18; TEMP 36.5; O2SAT 94
[2023-01-23 16:24] VITALS: BP 144/68; PULSE 84; RESP 18; TEMP 36.5; O2SAT 94
[2023-01-23 17:14] VITALS: O2SAT 93
--- NOTE | 2023-01-23 17:15 | RESPIRATORY ---
Patient wears 2L O2 at baseline during day/night and with ambulation. DME: [facility]
--- NOTE | 2023-01-23 17:31 | HPE_ITS ---
Date of service: 01/23/23 Time of Service: 18:59 Assessment and Plan Assessment and plan (1) COPD exacerbation: Status: Acute Assessment and plan: -Patient remains hospitalized for COPD exacerbation -She was started on doxycycline and prednisone plan to continue course through 01/25/2023 -Continue as needed nebulizer and albuterol inhaler (2) Acute respiratory failure with hypoxia: Status: Acute Assessment and plan: - Secondary to COPD exacerbation and parainfluenza -Currently on 2 L nasal cannula -Wean O2 as tolerated with a goal oxygen saturation of 88 to 92% (3) Type II diabetes mellitus: Status: Acute Assessment and plan: - Normally on metformin and glipizide at home -Has had hypoglycemia during hospitalization and due to acute kidney failure (resolved), and ongoing steroid use -Continue sliding scale insulin during hospitalization Qualifiers: Diabetes mellitus complication status: without complication Diabetes mellitus buttermaker continuous churn insulin use: without buttermaker continuous churn use Qualified Code(s): E11.9 - Type 2 diabetes mellitus without complications (4) Acute renal failure: Status: Resolved Assessment and plan: -Initially presented to the [facility] ED and was found to be in an uric kidney failure with hyperkalemia -Status post CRRT at [facility] -BUN and creatinine significantly improved almost back to baseline -Follow-up a.m. BMP Qualifiers: Acute renal failure type: unspecified Qualified Code(s): N17.9 - Acute kidney failure, unspecified (5) Septic shock: Status: Resolved Assessment and plan: - Initially Transferred to [facility] from [facility] ED with hypotension secondary to parainfluenza and kidney failure -Now resolved (6) Parainfluenza: Status: Acute Assessment and plan: - As noted above History of Present Illness History of Present Illness Chief Complaint: transfer [place] [facility] [place] ongoing treatment of COPD exacerbation Narrative: 72-year-old female with a past medical history of NIDDM, hypertension, hyperlipidemia, CKD, COPD, HFpEF, moderate aortic stenosis on echocardiogram in 2019, paroxysmal A-fib, depression, anxiety was initially transferred from the emergency department at [facility] with acute hypoxic respiratory failure and acute renal failure with hyperkalemia requiring dialysis setting of hypovolemic shock due to parainfluenza infection. While at [facility], patient had a VBG that demonstrated persistent respiratory acidosis was placed on BiPAP. She also remained an uric potassium level of 6.4 and ultimately required placement of hemodialysis line for CRRT. Ultimately her electrolytes stabilized and her fluid balance improved enabling her to be weaned off of BiPAP and placed on nasal cannula. Additionally, she was able to produce her own urine and was ultimately weaned off of pressors at 1500 on all less than 04/11/2022. Her renal function continued to improve off of dialysis with downtrending creatinine leading to her central venous line being removed. She also being treated with an acute COPD exacerbation as she remained hypoxic and wheezy as this was likely due to parainfluenza. She was initially started on ceftriaxone and azithromycin for concerns of community-acquired pneumonia which was discontinued once she was started on prednisone as well as a 5-day course of doxycycline which will be continued until 03/27/2022. Patient was also hyperglycemic during hospitalization likely secondary to steroids which was on sliding scale insulin. Given the patient only required CRRT the patient required ongoing hospitalization for treatment of acute hypoxic respiratory failure secondary to COPD exacerbation, patient was transferred from [facility] [place] [facility]. Review of Systems All systems reviewed & are unremarkable except as noted in HPI and below PFSH All Active Problems (Updated 01/23/23 @ 19:13 by Navjot Rodriguez MD) Parainfluenza (Acute) Type II diabetes mellitus (Acute) Acute respiratory failure with hypoxia (Acute) COPD exacerbation (Acute) Acute hyperkalemia (Acute) Pneumonia (Acute) Acute exacerbation of chronic obstructive pulmonary disease (Acute) Hypoxia (Acute) Abnormal ECG (Acute) Weakness (Acute) Diarrhea (Acute) Congestive heart failure (Chronic) Shortness of breath (Acute) Medication monitoring encounter (Acute) Tubular adenoma of colon (Acute) Diverticulosis (Chronic) Colon polyps (Chronic) Anemia (Chronic) Pleural effusion (Acute) Discharge planning issues (Acute) Tobacco abuse (Chronic) Depression (Chronic) Hypertension (Chronic) Dental abscess (Acute) COPD (chronic obstructive pulmonary disease) (Chronic) Personal history of nicotine dependence (Acute) Right ankle injury (Acute) Anemia (Chronic) Medical History Afib Paroxysmal atrial flutter On supplemental oxygen therapy on O2 of night. Is able to lay flat CKD (chronic kidney disease) stage 3, GFR 30-59 ml/min Pt. denies Diabetes mellitus 10/21/21 [facility] visit not well controlled, A1C 8.2 Discharge planning issues Diabetes mellitus Surgical History History of colonoscopy (~12/2021) Hx of hernia repair Social History Smoking/Tobacco Use Status: Former Tobacco Use Quit Date: 03/23/18 Tobacco: How many years used: 65 Smoking risk assessment performed?: Yes Alcohol Intake: current Alcohol Intake frequency: holidays/special occasions only Drug use: Never Substance use type: does not use Housing: house Do you feel safe at home: Yes Do you feel safe in your relationship?: Yes Meds Allergies and Home Medications Allergies Allergy/AdvReac Type Severity Reaction Status Date / Time codeine Allergy Mild Verified 01/20/23 23:25 fluticasone Allergy Mild Verified 06/30/22 15:01 [From Advair Diskus] salmeterol Allergy Mild Verified 06/30/22 15:01 [From Advair Diskus] Sulfa (Sulfonamide Allergy Mild Unknown Verified 01/20/23 23:25 Antibiotics) Home Medications Medication Instructions Recorded Confirmed Type albuterol sulfate 90 mcg/actuation 2 puff inhalation Q6H PRN PRN 11/25/17 01/20/23 History aerosol inhaler (ProAir HFA) cholecalciferol (vitamin D3) 50 2,000 unit PO DAILY 11/25/17 01/20/23 History mcg (2,000 unit) capsule (Vitamin D3) cinnamon bark 500 mg capsule 1,000 mg PO DAILY 11/25/17 01/20/23 History (Cinnamon) cyclobenzaprine 10 mg tablet 10 mg PO TID PRN PRN 11/25/17 01/20/23 History escitalopram oxalate 20 mg tablet 20 mg PO DAILY 11/25/17 01/20/23 History (Lexapro) omega-3 fatty acids 1,000 mg 1,000 mg PO DAILY 11/25/17 01/20/23 History capsule nebulizers #1 ea 11/30/17 06/30/22 Rx fluticasone fur. 100 mcg-umeclid 1 inh inhalation DAILY 09/30/20 01/20/23 History 62.5 mcg-vilant 25 mcg inhalat.powder (Trelegy Ellipta) Oxygen #1 ea 10/25/20 06/30/22 History gabapentin 100 mg capsule 1 cap PO HS leg cramps 10/29/21 01/20/23 History nicotine 10 mg inhalation 1 inh inhalation 4-6XD PRN 11/11/21 01/20/23 History cartridge (Nicotrol) Inhaler, Assist Devices [Pocket 1 ea miscellaneous DIRECTED ##0 12/28/21 01/20/23 Rx Chamber] metoprolol succinate 50 mg 50 mg PO DAILY #30 tabs 12/28/21 01/20/23 Rx tablet,extended release 24 hr Inhaler, Assist Devices [Pocket 1 ea miscellaneous DIRECTED ##0 01/23/22 01/20/23 Rx Chamber] amiodarone 200 mg tablet (Pacerone) 200 mg PO DAILY #0 tabs 01/23/22 01/20/23 Rx ferrous sulfate 325 mg (65 mg 325 mg PO BID #60 tabs 01/23/22 01/20/23 Rx iron) tablet furosemide 40 mg tablet 40 mg PO BID@0830,1600 #60 tabs 01/23/22 01/20/23 Rx glipizide 5 mg tablet, extended 5 mg PO DAILY #0 tabs 01/23/22 01/20/23 Rx release 24 hr (Glucotrol XL) spironolactone 25 mg tablet 25 mg PO DAILY #30 tabs 01/23/22 01/20/23 Rx rosuvastatin 10 mg tablet (Crestor) 20 mg PO DAILY 05/22/22 01/20/23 History sitagliptin phosphate 50 mg tablet 50 mg PO DAILY 05/22/22 01/20/23 History (Januvia) nystatin 100,000 unit/mL oral 5 ml PO QID 7 days #140 mL 06/30/22 01/20/23 Rx suspension Exam Narrative Exam Narrative: Mildly fatigued female laying in bed in no acute distress, nasal cannula in place on 2 L, AOx4, heart regular rate and rhythm, lungs and expiratory wheezing bilateral lung bases, abdomen soft, nontender nondistended Results Last Vital Signs Temp 97.7 F 01/23/23 16:24 Pulse 84 01/23/23 16:24 Resp 18 01/23/23 16:24 BP 144/68 H 01/23/23 16:24 Pulse Ox 93 01/23/23 17:14 Time Spent Time spent with Patient: >75 minutes Time was spent: preparing to see the patient(eg.review tests), obtaining and/or reviewing separately otained hiistory, referring, communicating with other health primary health care nurse, indepentently interpreting results, counseling the patient and care coordination
[2023-01-23 19:56] VITALS: BP 162/76; PULSE 82; RESP 18; TEMP 36.9; O2SAT 93
[2023-01-23] MEDS: Rosuvastatin 10 MG TAB PO (20:34)
[2023-01-23] MEDS: Doxycycline Hyclate 100 MG CAP PO (20:34)
[2023-01-23] MEDS: Insulin Aspart 300 UNITS/3 ML PEN SC (20:38)
[2023-01-23] MEDS: Acetaminophen 325 MG TAB PO (21:58)
[2023-01-23 23:17] VITALS: BP 141/75; PULSE 84; RESP 18; TEMP 36.7; O2SAT 95
[2023-01-24 02:45] VITALS: BP 147/84; PULSE 82; RESP 18; TEMP 36.2; O2SAT 92
[2023-01-24 06:46] LABS: HCT 32.3 % (36.0-46.0); HGB 10.4 g/dL (11.2-15.7); MCH 32.2 pg (27.0-33.0); MCHC 32.2 % (32.0-36.0); MCV 100 fL (80-95); Platelet Count 172 10^3/uL (130-400); RBC 3.23 10^6/uL (3.93-5.22); RDW 13.7 % (11.7-14.6); RDW-SD 49.9 fL; WBC 9.88 10^3/uL (4.4-10.8)
[2023-01-24 07:00] LABS: Anion Gap 6.7 mmol/L (3-11); BUN 40 mg/dL (7-18); CO2 27.3 mmol/L (21.0-32.0); CREATININE 2.5 mg/dL (0.55-1.02); Calcium 8.9 mg/dL (8.5-10.1); Chloride 104 mmol/L (98-107); Estimated GFR 20.18 (mL/min/1.73m2); Glucose 165 mg/dL (74-106); Magnesium 2.1 mg/dL (1.8-2.4); Potassium 4.9 mmol/L (3.5-5.1); Sodium 138 mmol/L (136-145)
[2023-01-24 07:14] VITALS: BP 162/81; PULSE 76; RESP 19; TEMP 36.6; O2SAT 96
[2023-01-24] MEDS: Doxycycline Hyclate 100 MG CAP PO ×2 (07:38→19:43)
[2023-01-24] MEDS: predniSONE 20 MG TAB 40 MG PO (07:38)
[2023-01-24] MEDS: Escitalopram 20 MG TAB PO (07:38)
[2023-01-24] MEDS: Insulin Aspart 300 UNITS/3 ML PEN SC ×4 (08:20→21:16)
[2023-01-24] MEDS: Normal Saline Flush 10 ML SYR IVP (08:20)
--- NOTE | 2023-01-24 09:06 | PDOC.CMIN ---
Date of service: 01/24/23 Time of Service: 09:06 Care Management Initial Assmt Initial Assessment REASON FOR HOSPITALIZATION:: COPD Exacerbation PREVIOUS FUNCTIONAL STATUS/SOCIAL/FAMILY SUPPORTS:: Shira resides alone in [place], [place] with her two dogs; a boxer and a chihuahua. She has a daughter, Effie who resides in [place] and a Grandson, Camilo who resides in [place] as well as a healthy support network of friends per her report. 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 Shira is independent with all ADLs in the community, and utilizes home O2 at baseline CURRENT FUNCTIONAL STATUS:: Remains on M/S resting comfortably at this time. Requesting to work with PT; MD entered order. Anticipate Shira will remain at [facility] through the weekend for anticipated ECHO on Thursday. ADVANCE DIRECTIVES:: None on file. Has patient been provided with info about the portal/API?: Yes Did the patient sign up for the portal?: Yes CODE STATUS:: Full Code INSURANCE COVERAGE / FINANCIAL ISSUES:: [employer] MCR Replacement CURRENT HOME/COMMUNITY SERVICES/EQUIPMENT:: Home O2, ramp, glucometer PRIMARY CARE PHYSICIAN:: Liliam Noble POTENTIAL DISCHARGE NEEDS:: New VNA services if indiciated PATIENT/FAMILY EDUCATION NEEDS:: Review discharge instructions, discuss Ask Me Three. ANTICIPATED BARRIERS TO DISCHARGE:: None identified. TRANSPORTATION:: Via private vehicle with family PLAN:: Anticipate Shira will return home when ready per MD. She will have new orders for VNA supports at home, and transport via private vehicle with family. CM will continue to follow and support discharge planning considerations. PFSH All Active Problems (Updated 01/23/23 @ 19:13 by Navjot Rodriguez MD) Parainfluenza (Acute) Type II diabetes mellitus (Acute) Acute respiratory failure with hypoxia (Acute) COPD exacerbation (Acute) Acute hyperkalemia (Acute) Pneumonia (Acute) Acute exacerbation of chronic obstructive pulmonary disease (Acute) Hypoxia (Acute) Abnormal ECG (Acute) Weakness (Acute) Diarrhea (Acute) Congestive heart failure (Chronic) Shortness of breath (Acute) Medication monitoring encounter (Acute) Tubular adenoma of colon (Acute) Diverticulosis (Chronic) Colon polyps (Chronic) Anemia (Chronic) Pleural effusion (Acute) Discharge planning issues (Acute) Tobacco abuse (Chronic) Depression (Chronic) Hypertension (Chronic) Dental abscess (Acute) COPD (chronic obstructive pulmonary disease) (Chronic) Personal history of nicotine dependence (Acute) Right ankle injury (Acute) Anemia (Chronic) Medical History Afib Paroxysmal atrial flutter On supplemental oxygen therapy on O2 of night. Is able to lay flat CKD (chronic kidney disease) stage 3, GFR 30-59 ml/min Pt. denies Diabetes mellitus 10/21/21 [facility] visit not well controlled, A1C 8.2 Discharge planning issues Diabetes mellitus Surgical History History of colonoscopy (~12/2021) Hx of hernia repair Social History Smoking/Tobacco Use Status: Former Tobacco Use Quit Date: 03/23/18 Tobacco: How many years used: 65 Smoking risk assessment performed?: Yes Alcohol Intake: current Alcohol Intake frequency: holidays/special occasions only Drug use: Never Substance use type: does not use Housing: house Do you feel safe at home: Yes Do you feel safe in your relationship?: Yes
[2023-01-24 11:21] VITALS: BP 160/91; PULSE 79; RESP 18; TEMP 36.8; O2SAT 94
[2023-01-24 15:38] VITALS: BP 160/97; PULSE 80; RESP 18; TEMP 37; O2SAT 96
--- NOTE | 2023-01-24 17:18 | W.PM.PROGNOT ---
Date of Service Date of service: 01/24/23 Time of Service: 17:18 Assessment and Plan Assessment and plan (1) COPD exacerbation: Status: Acute Assessment and plan: Continue doxycycline and prednisone through 01/25/2023. Obtain a sputum culture. Consider that there may be a fluid overload component given hx of CHF - will try to find out if she has had an echo. (2) Acute respiratory failure with hypoxia: Status: Resolved Assessment and plan: Down to 2L of O2 by NC. Will check ambulatory pulse ox closer to discharge. (3) Acute renal failure: Status: Resolved Assessment and plan: RHONDA on CKD. Will do more research as to why she went into RHONDA. Did require CRRT at [facility] on this admission. Not currently on diuretics and used to be as outpatient. Consider repeating an echo if one was not done at [facility]. Qualifiers: Acute renal failure type: unspecified Qualified Code(s): N17.9 - Acute kidney failure, unspecified (4) Type II diabetes mellitus: Status: Acute Assessment and plan: Continue SSI, add carb coverage Qualifiers: Diabetes mellitus penitentiary insulin use: without predatory animal exterminator use Diabetes mellitus complication status: without complication Qualified Code(s): E11.9 - Type 2 diabetes mellitus without complications (5) Septic shock: Status: Resolved Assessment and plan: Remains on doxycycline. (6) Parainfluenza: Status: Acute Assessment and plan: See COPD exacerbation (7) DVT prophylaxis: Status: Acute Assessment and plan: Trial SC heparin (8) Discharge planning issues: Status: Acute Assessment and plan: Full code COntinues to require hospitalization PT following Subjective Subjective Interval history since last seen: Ms Kelly states she is feeling better, but not yet back to normal - not to the point of being able to go home. She is still short of breath - not back to baseline. Her cough has been productive of yellow sputum. She had hiccups today which resolved after about 2 hrs. Feels dizzy when trying to get up. Denies CP, nausea currently. She does not have a good understanding of what happened to her kidneys. Exam Narrative Exam Narrative: General: Pleasant obese female who is sitting at the side of the bed HEENT: EOMI, MMM Heart: RRR, no m/r/g Lungs: CTAB; wet-sounding cough is not productive while I am in the room Abdomen: soft, nontender, nondistended Extremities: 1+ BLE edema, symmetric, no c/c. Objective Last Vital Signs Temp 37.0 C 01/24/23 15:38 Pulse 80 01/24/23 15:38 Resp 18 01/24/23 15:38 BP 160/97 H 01/24/23 15:38 Pulse Ox 96 01/24/23 15:38 Laboratory Results - last 24 hr 01/24/23 06:30 WBC 9.88 RBC 3.23 L Hgb 10.4 L Hct 32.3 L MCV 100 H MCH 32.2 MCHC 32.2 RDW 13.7 Plt Count 172 MPV 9.0 Sodium 138 Potassium 4.9 Chloride 104 Carbon Dioxide 27.3 Anion Gap 6.7 BUN 40 H Creatinine 2.5 H Est GFR (CKD-EPI 2020) 20.18 Glucose 165 H Calcium 8.9 Magnesium 2.1 Time Spent with Patient Time Spent with Patient: 25-34 minutes Time was spent: preparing to see the patient(eg.review tests), obtaining and/or reviewing separately otained hiistory, ordering medications,tests, procedures, referring, communicating with other health medicare biller, indepentently interpreting results, counseling the patient and care coordination
[2023-01-24] MEDS: Rosuvastatin 10 MG TAB PO (19:43)
[2023-01-24] MEDS: guaiFENesin 600 MG TABCR PO (19:44)
[2023-01-24 20:13] VITALS: BP 132/75; PULSE 80; RESP 18; TEMP 36.8; O2SAT 96
[2023-01-25 00:33] VITALS: BP 158/92; PULSE 78; RESP 18; TEMP 36.3; O2SAT 97
[2023-01-25 03:55] VITALS: BP 154/87; PULSE 79; RESP 18; TEMP 36; O2SAT 94
[2023-01-25 06:41] LABS: Abs Immature Grans 0.33 10^3/uL (0.0-0.06); Absolute Eosinophil Count 0.02 10^3/uL (0.0-0.7); Absolute Lymphocyte Count 1.28 10^3/uL (1.2-3.4); Absolute Neutrophil Count 9.15 10^3/uL (1.2-6.7); Basophils % 0.3; Eosinophils % 0.2; HCT 33.5 % (36.0-46.0); HGB 11.2 g/dL (11.2-15.7); Immature Grans % 2.8; Lymphocytes % 10.8; MCH 32.4 pg (27.0-33.0); MCHC 33.4 % (32.0-36.0); MCV 97 fL (80-95); Monocytes % 8.5; Neutrophils % 77.4; RBC 3.46 10^6/uL (3.93-5.22); RDW 13.7 % (11.7-14.6); RDW-SD 48.8 fL; WBC 11.82 10^3/uL (4.4-10.8)
[2023-01-25 06:51] LABS: Absolute Basophil Count 0.04 10^3/uL (0.0-0.2)
[2023-01-25 07:02] LABS: Anion Gap 6.7 mmol/L (3-11); BUN 48 mg/dL (7-18); CO2 26.3 mmol/L (21.0-32.0); CREATININE 2.5 mg/dL (0.55-1.02); Calcium 9.1 mg/dL (8.5-10.1); Chloride 102 mmol/L (98-107); Estimated GFR 20.18 (mL/min/1.73m2); Glucose 237 mg/dL (74-106); Magnesium 1.9 mg/dL (1.8-2.4); Sodium 135 mmol/L (136-145)
[2023-01-25] MEDS: Doxycycline Hyclate 100 MG CAP PO ×2 (07:52→20:13)
[2023-01-25] MEDS: Escitalopram 20 MG TAB PO (07:53)
[2023-01-25] MEDS: Metoprolol CR 25 MG TABCR PO (07:53)
[2023-01-25] MEDS: guaiFENesin 600 MG TABCR PO ×2 (07:53→20:13)
[2023-01-25] MEDS: predniSONE 20 MG TAB 40 MG PO (07:54)
[2023-01-25] MEDS: Normal Saline Flush 10 ML SYR IVP ×2 (07:54→09:31)
[2023-01-25] MEDS: Insulin Aspart 300 UNITS/3 ML PEN SC ×7 (07:55→22:11)
[2023-01-25] MEDS: Sodium Zirconium Cyclosilicate 10 GM PKT PO (07:56)
--- NOTE | 2023-01-25 08:11 | PT.INIE ---
PT Notes Visit Reasons: COPD exacerbation Inpatient Physical Therapy Evaluation Date: January 25, 2023 Referring Doctor: Sinai Berwer PT Orders: PT CONSULT: Limited ability Precautions: Standard, fall, activity as tolerated Patient Profile/Admitting Diagnosis: 72-year-old female with a past medical history of NIDDM, hypertension, hyperlipidemia, CKD, COPD, HFpEF, moderate aortic stenosis on echocardiogram in 2019, paroxysmal A-fib, depression, anxiety was initially transferred from the emergency department at [facility] with acute hypoxic respiratory failure and acute renal failure with hyperkalemia requiring dialysis setting of hypovolemic shock due to parainfluenza infection. Given the patient only required CRRT the patient required ongoing hospitalization for treatment of acute hypoxic respiratory failure secondary to COPD exacerbation, patient was transferred from [facility]. PMHX: PFSH All Active Problems (Updated 01/23/23 @ 19:13 by Navjot Rodirguez MD) Parainfluenza (Acute) Type II diabetes mellitus (Acute) Acute respiratory failure with hypoxia (Acute) COPD exacerbation (Acute) Acute hyperkalemia (Acute) Pneumonia (Acute) Acute exacerbation of chronic obstructive pulmonary disease (Acute) Hypoxia (Acute) Abnormal ECG (Acute) Weakness (Acute) Diarrhea (Acute) Congestive heart failure (Chronic) Shortness of breath (Acute) Medication monitoring encounter (Acute) Tubular adenoma of colon (Acute) Diverticulosis (Chronic) Colon polyps (Chronic) Anemia (Chronic) Pleural effusion (Acute) Discharge planning issues (Acute) Tobacco abuse (Chronic) Depression (Chronic) Hypertension (Chronic) Dental abscess (Acute) COPD (chronic obstructive pulmonary disease) (Chronic) Personal history of nicotine dependence (Acute) Right ankle injury (Acute) Anemia (Chronic) Medical History Afib Paroxysmal atrial flutter On supplemental oxygen therapy on O2 of night. Is able to lay flatCKD (chronic kidney disease) stage 3, GFR 30-59 ml/min Pt. deniesDiabetes mellitus 10/21/21 [facility] visit not well controlled, A1C 8.2Discharge planning issues Diabetes mellitus Surgical History History of colonoscopy (~12/2021) Hx of hernia repair Social History/Home Situation: Lives alone and currently with her 2 dogs. Has a daughter who provides care and Shady who lives in [place]. Prior to admission she was independent in all ADLs and community and utilized home O2 at baseline. Current Functional Limitations: Community distance ambulation, self-care ADLs Equipment Owned/DME: Patient utilizes supplemental oxygen 2 L in home setting at baseline. Has a cane and front wheel walker. Typically uses a cane for community ambulation prior to admission to [facility]. Subjective: Not sure how much I can do right now. I am willing to try walking but not sure how far I can go. Objective: General Observation: Nasal cannula O2 2 L. Upon initiation of evaluation patient was sitting edge of bed watching her phone. Mental Status: Alert and oriented x3 Pain: 0/10 Vital Signs: O2 saturation sitting bedside 2 L oxygen 95%, heart rate 74 bpm ROM: Right Upper Extremity: Within functional limits Left Upper Extremity: Within functional limits Right Lower Extremity: Within functional limits Left Lower Extremity: Within functional limits Strength: Right Upper Extremity: Glenohumeral joint flexion 4/5, abduction 4 -/5, bicep 4/5, tricep 4 -/5, good potable water treatment operator Left Upper Extremity: Glenohumeral joint flexion 4/5, abduction 4 -/5, bicep 4/5, tricep 4 -/5, good potable water treatment operator Right Lower Extremity: Hip flexion 4 -/5, knee extension 4/5, knee flexion 4 -/5. Ankle dorsiflexion and plantarflexion 4/5 Left Lower Extremity: Hip flexion 4 -/5, knee extension 4/5, knee flexion 4 -/5. Ankle dorsiflexion and plantarflexion 4/5 Sensation: Reported intact sensation light touch bilateral lower extremities Bed Mobility/Transfers: Sit?stand: Standby assist front wheel walker Stand?sit: Standby assist from front wheel walker Bed mobility: independent Gait: Patient ambulates 15 feet x 2 with front wheel walker and contact-guard X1. O2 saturation decreases to 88% at room air. Nursing notified patient in transfer to [facility] after ambulation, maintain 88% O2 saturation. When sitting back bedside O2 reapplied and increases to 93% after 2 minutes with pursed lip breathing. Nursing in attendance and was notified. Balance: Static Sitting: Normal Dynamic Sitting: Normal Static Standing: Fair Dynamic Standing: Fair Special Tests: Mobility Limitations Standardized Measure [facility] 6 clicks Basic Mobility Inpatient Short Form: Raw Score:20 standardized Score: 36% Informed Consent/Education: Patient instructed in purpose of PT consult and plan of care. Assessment: Patient is a 72 year old female referred to physical therapy services with the diagnosis of COPD exacerbation. Patient presents with clinical signs and symptoms consistent with above diagnosis. Patient presents with clinical signs and symptoms consistent with current/admitting diagnoses that have resulted to mobility limitations, gait instability, generalized weakness, and overall ADL decline as demonstrated by the following impairment level findings: 1. Decreased strength to B LE major muscle groups 2. Impaired standing balance 3. Impaired activity tolerance Impairments are contributing to the following functional limitations: 1. Decline in transfer skills 2. Difficulty with ambulation without assistive device and physical assistance 3. Increased completion time for mobility ADL performance 4. Increased risk for falls Patient is assessed as a [] Low 39096 X Moderate 76384 [] High 26230 complexity based on the following: History: See above Examination: See above Presentation: evolving Decision Making: moderate Goals: Goals X1 week 1. Supine-Sit: Independent 2. Sit-Supine: Independent 3. Sit-Stand: Independent 4. Stand-Sit: Independent 5. Bed-Chair: Independent 6. Chair-Bed: Independent 7. Gait : 250 feet with front wheel rollator walker standby assist Plan of Care/Treatment Plan: 1-2x/day, 7 days/week x 1 week. Plan of care has been reviewed with the [employer] providing the service under Physical Therapy direction. Initiate Physical Therapy intervention for strengthening, bed mobility, transfers, gait, stairs, balance training, use of assistive device. DISCHARGE RECOMMENDATIONS: [] Home with no services [] X Home with services [bilateral lower extremity strengthening, conditioning, ambulation] [] Home with outpatient PT [] [] SNF for continued rehabilitation [] [] Longterm Care [] [] SNF versus LTC based on ability to participate and progress [] TREATMENT CODE/TIME: 80397 8:50-9:15 Thank you for this referral. Nash Mckeon PT, DPT Disclaimer: This note was created using [employer] voice recognition software. It was reviewed for major content. However, there may be multiple small discrepancies and errors due to the voice recognition aspects of the software.
[2023-01-25 08:28] VITALS: BP 134/75; PULSE 71; RESP 18; TEMP 36.4; O2SAT 96
[2023-01-25 11:35] VITALS: BP 149/90; PULSE 70; RESP 18; TEMP 36.4; O2SAT 96
[2023-01-25] MEDS: Amiodarone 200 MG TAB PO (13:56)
[2023-01-25 15:27] VITALS: BP 164/93; PULSE 73; RESP 16; TEMP 36.5; O2SAT 95
--- NOTE | 2023-01-25 17:14 | PGE_ITS ---
Date of Service Date of service: 01/25/23 Time of Service: 17:14 Assessment and Plan Assessment and plan (1) COPD exacerbation: Status: Acute Assessment and plan: Continue doxycycline (also for a tick borne ilness). D/c prednisone. Obtain a sputum culture. Consider that there may be a fluid overload component given hx of CHF. Echo ordered. It does not appear like one was done at [facility]. (2) Acute respiratory failure with hypoxia: Status: Resolved Assessment and plan: Down to 2L of O2 by OK. Will check ambulatory pulse ox closer to discharge. (3) Acute renal failure: Status: Resolved Assessment and plan: RHONDA on CKD. Cr now stable. Per [facility] records, this appears to be due to hypovolemia due to parainfluenza. Did require CRRT at [facility] on this admission. Not currently on diuretics and used to be on aldactone (and no longer on furosemide) as outpatient. Consider resumption of diuretics. Consider repeating an echo if one was not done at [facility]. Qualifiers: Acute renal failure type: unspecified Qualified Code(s): N17.9 - Acute kidney failure, unspecified (4) Type II diabetes mellitus: Status: Acute Assessment and plan: Continue SSI, add carb coverage Qualifiers: Diabetes mellitus senior care insulin use: without senior care use Diabetes mellitus complication status: without complication Qualified Code(s): E11.9 - Type 2 diabetes mellitus without complications (5) Septic shock: Status: Resolved Assessment and plan: Remains on doxycycline. (6) Parainfluenza: Status: Acute Assessment and plan: See COPD exacerbation (7) Tick bite: Status: Acute Assessment and plan: continue doxycycline (8) DVT prophylaxis: Status: Acute Assessment and plan: Continue SC heparin (9) Discharge planning issues: Status: Acute Assessment and plan: Full code COntinues to require hospitalization PT following Subjective Subjective Interval history since last seen: Ms Kelly is not feeling significantly better or worse today. She states she is feeling depressed, but not suicidal or homicidal, because she is missing her dog, but she knows she is not ready to go home yet. Denies dizziness, CP, SOB, n/v. States that she was definitely taking amiodarone at home (and I verified this with pharmacy). It's not clear if [facility] was aware of her amiodarone prescription, but it does not appear to have been stopped intentionally. Exam Narrative Exam Narrative: General: Pleasant obese female who is sitting at the side of the bed HEENT: EOMI, MMM Heart: RRR, no m/r/g Lungs: CTAB; I did not hear a cough today Abdomen: soft, nontender, nondistended Extremities: 1+ BLE edema, symmetric, no c/c. Objective Last Vital Signs Temp 36.5 C 01/25/23 15:27 Pulse 73 01/25/23 15:27 Resp 16 01/25/23 15:27 BP 164/93 H 01/25/23 15:27 Pulse Ox 95 01/25/23 15:27 Laboratory Results - last 24 hr 01/25/23 06:25 WBC 11.82 H RBC 3.46 L Hgb 11.2 Hct 33.5 L MCV 97 H MCH 32.4 MCHC 33.4 RDW 13.7 Plt Count MPV Immature Gran % 2.8 Neutrophils % 77.4 Lymphocytes % 10.8 Monocytes % 8.5 Eosinophils % 0.2 Basophils % 0.3 Nucleated RBC % 0.0 Absolute Neutrophils 9.15 H Absolute Lymphocytes 1.28 Absolute Monocytes 1.00 H Absolute Eosinophils 0.02 Absolute Basophils 0.04 Sodium 135 L Potassium 5.0 Chloride 102 Carbon Dioxide 26.3 Anion Gap 6.7 BUN 48 H Creatinine 2.5 H Est GFR (CKD-EPI 2020) 20.18 Glucose 237 H Calcium 9.1 Magnesium 1.9 Time Spent with Patient Time Spent with Patient: 25-34 minutes Time was spent: preparing to see the patient(eg.review tests), obtaining and/or reviewing separately otained hiistory, ordering medications,tests, procedures, referring, communicating with other health career specialist, indepentently interpreting results, counseling the patient and care coordination
[2023-01-25] MEDS: Rosuvastatin 10 MG TAB PO (20:13)
[2023-01-25 20:22] VITALS: BP 149/83; PULSE 75; RESP 18; TEMP 36.4; O2SAT 97
[2023-01-25] MEDS: Insulin Glargine 300 UNITS/3 ML PEN SC (22:10)
[2023-01-26] VITALS (7 sets, daily range): BP systolic 134–167; BP diastolic 64–99; PULSE 66–75; RESP 16–18; TEMP 35.5–36.6; O2SAT 93–98
[2023-01-26 06:50] LABS: Abs Immature Grans 0.32 10^3/uL (0.0-0.06); Absolute Basophil Count 0.04 10^3/uL (0.0-0.2); Absolute Eosinophil Count 0.06 10^3/uL (0.0-0.7); Absolute Lymphocyte Count 1.49 10^3/uL (1.2-3.4); Basophils % 0.3; Eosinophils % 0.4; HCT 36.9 % (36.0-46.0); HGB 12.6 g/dL (11.2-15.7); Immature Grans % 2.3; Lymphocytes % 10.5; MCH 32.4 pg (27.0-33.0); MCHC 34.1 % (32.0-36.0); MCV 95 fL (80-95); Monocytes % 7.6; Neutrophils % 78.9; RBC 3.89 10^6/uL (3.93-5.22); RDW 13.7 % (11.7-14.6); RDW-SD 46.8 fL; WBC 14.17 10^3/uL (4.4-10.8)
[2023-01-26 06:52] LABS: Absolute Monocyte Count 1.08 10^3/uL (0.1-0.8); Absolute Neutrophil Count 11.18 10^3/uL (1.2-6.7)
[2023-01-26 07:00] LABS: Anion Gap 8.2 mmol/L (3-11); BUN 50 mg/dL (7-18); CO2 24.8 mmol/L (21.0-32.0); CREATININE 2.3 mg/dL (0.55-1.02); Calcium 9.4 mg/dL (8.5-10.1); Chloride 100 mmol/L (98-107); Estimated GFR 22.31 (mL/min/1.73m2); Glucose 183 mg/dL (74-106); Magnesium 1.8 mg/dL (1.8-2.4); Potassium 5.3 mmol/L (3.5-5.1); Sodium 133 mmol/L (136-145)
[2023-01-26 07:23] LABS: Diff Comment Diff Reviewed; RBC Morphology Normal
--- NOTE | 2023-01-26 08:00 | DI.US_ITS ---
APPROVED REPORT EXAM: Comprehensive 2D, Doppler, and color-flow Echocardiogram Patient Location: In-Patient Room/Bed: [address] T[address]: Hi Aponte RDCS (AE) Indications: h/o CHF, RHONDA Other Information Study Quality: Technically Limited. Technically limited study due to body habitus. Conclusion Mild concentric left ventricular hypertrophy. Ejection fraction is 55%. Wall motion is normal Normal right ventricular size and systolic function Both atria are normal in size Aortic valve is calcified. There is mild to moderate aortic stenosis. Peak gradient is 34 mean is 2 0 mmHg Wall motion Left Ventricle The left ventricle is normal size. The left ventricular systolic function is normal. The left ventric ular ejection fraction is within the normal range. Borderline concentric left ventricular hypertrophy . There is normal LV segmental wall motion. There is no ventricular septal defect visualized. LVEF is 55%. Right Ventricle The right ventricle is normal size. The right ventricular systolic function is normal. Unable to asse ss PA pressure. Atria The left atrium size is normal. The right atrium size is normal. The interatrial septum is intact wit h no evidence for an atrial septal defect. Aortic Valve Aortic valve is calcified. Aortic valve is probably trileaflet. Mild to moderate aortic stenosis. Pea k aortic valve gradient is 33.62 mmHg. Highest mean aortic valve gradient is 20.30 mmHg. No aortic re gurgitation is present. Mitral Valve The mitral valve is normal in structure. No evidence of mitral valve stenosis. There is no mitral pham ve regurgitation noted. Tricuspid Valve The tricuspid valve is normal in structure. There is no tricuspid valve stenosis. Trace tricuspid reg urgitation. Pulmonic Valve The pulmonary valve is normal in structure. There is no pulmonic valvular stenosis. There is no pulmo glenna valvular regurgitation. Great Vessels The aortic root is normal in size. The ascending aorta is normal in size. Aortic arch is not well vis ualized. IVC is normal in size and collapses >50% with inspiration. Pericardium There is no pericardial effusion. 2D Dimensions IVSD d PLAX 1.18 cm F: 0.6-1.0 Ao Root d 2.63 cm F: 2.7 - 3.3 LVPW d PLAX 1.18 cm F: 0.6 - 1.0 Ao Asc Diam d 3.01 cm F: 2.3 - 3.1 LVID d PLAX 5.32 cm F: 3.8 - 5.2 LVDs 3.92 cm F: 2.2 - 3.5 LV EF Teichholz 51.1 % FS 26.27 % LV EDV (Teich) 136.5 mL LV ESV (Teich) 66.8 mL Stroke Vol Index (Teich) 35.55 M-Mode TAPSE 2.57 cm (M/F) >1.7 Auto EF LV EDV A4C 90.9 mL LV EDV A2C 65.0 mL LV EDV BP 77.1 mL LV ESV A4C 48.8 mL LV ESV A2C 32.2 mL LV ESV BP 39.7 mL LVEF(%) A4C 46.4 % LVEF(%) A2C 50.4 % LVEF(%) BP 48.5 % LV SV A4C 42.2 ml LV SV A2C 32.8 ml LV SV BP 37.4 ml LV CO A4C 3.0 L/min LV CO A2C 2.4 L/min LV CO BP 2.7 L/min HR A4C 71.69 BPM HR A2C 72.01 BPM LV EDV Index (BP) LA Volume LA Length A4C 6.3 cm LA Length A2C LA Area A4C s 15.56 cm2 LA Area A2C s LA Vol A4C A-L 32.42 mL LA Vol A2C A-L LA Vol Biplane A-L LA Vol A4C MOD 31.1 mL LA Vol A2C MOD LA Vol BP MOD RA Volume RA Area A4C 12.5 cm2 RA ESV A4C (A-L) 27.7mL RA Vol/BSA A4C A-L RA Length A4C 4.8 cm RA ESV A4C (MOD) 26.3mL LV Diastology MV E' medial 0.107 (>0.07 m/s) MV E Vmax 0.67 (0.4-1.3 m/s) MV E/E' MED 6.20 (<14) MV A Vmax 0.95 (0.4-1.3 m/s) MV E' lateral 0.087 (>0.1 m/s) E/A Ratio 0.7 MV E/E' LAT 7.66 (<14) MV E' Average 0.097 m/s MV E/E'(average) 6.85 Aortic Valve AoV Vmax 2.90 m/s LVOT Vmax 0.84 m/s AoV Peak Grad 33.6 mmHg LVOT Peak Grad 2.8 mmHg AoV Area (Vmax) 0.74 cm2 LVOT VTI 0.193 m AoV VTI 0.671 m LVOT Mean Grad 1.3 mmHg AoV Mean Beka. 2.11 m/s LVOT SV 49.81 mL AoV Mean Grad 20.3 mmHg LVOT Diam s 1.80 cm AoV Area (VTI) 0.74 cm2 Velocity Ratio 0.29 Mitral Valve MV DT 194 (160-240 msec) Pulmonary Valve PV Vmax 1.56 (0.5-1.5 m/s) RVOT Vmax 1.03 m/s PV Peak Grad 9.7 mmHg RVOT Peak Gr. 4.2 mmHg PV Mean Beka 1.05 m/s RVOT VTI 0.194 m PV Mean Grad 4.8 mmHg RVOT Mean Gr. 1.8 mmHg
[2023-01-26] MEDS: Metoprolol CR 25 MG TABCR PO (08:20)
[2023-01-26] MEDS: guaiFENesin 600 MG TABCR PO ×2 (08:20→19:28)
[2023-01-26] MEDS: Escitalopram 20 MG TAB PO (08:20)
[2023-01-26] MEDS: Doxycycline Hyclate 100 MG CAP PO ×2 (08:20→19:28)
[2023-01-26] MEDS: Amiodarone 200 MG TAB PO (08:21)
[2023-01-26] MEDS: Insulin Aspart 300 UNITS/3 ML PEN SC ×7 (08:21→21:25)
--- NOTE | 2023-01-26 09:50 | CMPROGNOTE_ITS ---
Date of service: 01/26/23 Time of Service: 09:50 Care Management Progress Note Progress Note Text Progress Note Text: S/O: Shira was sitting up on the edge of her bed when CM met with her. Per report, she will have an echo today. CM discussed discharge planning considerations, including HH services, which she stated that she is not willing to have at this time. She stated that she has two dogs, and one of them is not particularly friendly, so she is not willing to have a stranger come to her home at this time. CM asked if she is agreeable to outpatient PT, which she agreed to. CM will discuss this with PT as well. CM will continue to follow. A: Shira is a 72 year old female admitted to [facility] on 01/23/23 for COPD exacerbation. P: Anticipate Shira will return home when ready per MD. She is not agreeable to HH services at this time. She will transport via private vehicle with family. CM will continue to follow and support discharge planning considerations.
[2023-01-26 10:28] LABS: Lab Add On Test DONE
[2023-01-26 12:17] LABS: Procalcitonin 0.2 ng/mL
--- NOTE | 2023-01-26 12:37 | PT.INTREAT ---
Date of service: 01/26/23 Time of Service: 11:28 PT Notes Visit Reasons: COPD exacerbation Inpatient Physical Therapy Treatment Note [facility] Date: 01/26/23 PRECAUTIONS: Fall, standard, activity as tolerated. SUBJECTIVE: Reports feeling better than she did when she first came in to the hospital. OBJECTIVE: Supine in bed, agreeable to therapy. ? PAIN: none reported VITALS: ? Pre-Treatment: SaO2 96%, HR 67 BPM on 2L via nasal cannula AFTERNOON: SaO2 95%, HR 73 BPM on 2L via nasal cannula. ? Post-Treatment: SaO2 96%, HR 70 BPM on 2L via nasal cannula AFTERNOON: SaO2 91%, HR 85 BPM on 2L via nasal cannula.? BED MOBILITY/TRANSFERS? Rolling L/R: not assessed Supine-sit: modified independent with bilateral side rails? Sit-supine: not assessed ? Sit-stand: SBA? Stand-sit: SBA ? Bed-Chair: CGA ? Chair-bed: CGA ? Therapeutic Exercises ([id number][]): Direct one-on-one instruction in therapeutic exercises to develop strength, endurance, range of motion and flexibility. Ambulation ? Assistive Device: FWW? Weight bearing: full Assist: CGA AFTERNOON: CGA with wheelchair follow ? Distance:? 50 feet AFTERNOON: 200 feet with 2 seated rests. ? Deviation: Patient declines to wear O2 during ambulation. Reduced quin. Reduced step length. Reduced step height. Excellent posture. SaO2 drops to 87, HR climbs to 80 bpm. AFTERNOON: With 2L/min supplemental O2 via nasal cannula. SaO2 stays >90%. HR 72-85 BPM. ? Provided skilled instruction in proper exercise performance Provided skilled manual cues to facilitate proper muscle recruitment and/or form. ASSESSMENT:? Patient tolerates therapy well, recovering to baseline in 90 seconds or less. PLAN: Continue global strengthening per plan of care until patient is medically cleared for discharge. TREATMENT CODE/TIME: 22 minutes beginning at 11:28 and 18 minutes beginning at 14:56 for a total of 40 minutes today.
[2023-01-26] MEDS: Nystatin POWDER 60 GM JAR TP ×2 (13:14→19:29)
--- NOTE | 2023-01-26 17:31 | PGE_ITS ---
Date of Service Date of service: 01/26/23 Time of Service: 17:31 Assessment and Plan Assessment and plan (1) COPD exacerbation: Status: Acute Assessment and plan: Due to parainfluenza. Continue doxycycline (also for a tick borne ilness). Consider that there may be a fluid overload component given hx of CHF. Will give 1 dose of furosemide. Echo w/ moderate and not enough to cause cardiorenal etiology of kidney failure. Per daughter's description, the patient had POCUS done at [facility], but I am not sure about a formal echo - I still have not seen the read from [facility]. (2) Acute respiratory failure with hypoxia: Status: Resolved Assessment and plan: Down to 2L of O2 by SD. Will check ambulatory pulse ox tomorrow am. (3) Acute renal failure: Status: Resolved Assessment and plan: RHONDA on CKD. Cr a little better, but is getting fluid overloaded. Will give a dose of lasix while monitoring Cr carefully. I also noticed that the potassium went up and that the patient had a lot of dairy on her tray. We discussed how this could be a source of her potassium going up. I also had this conversation with nursing. Per [facility] records, this appears to be due to hypovolemia due to parainfluenza. Did require CRRT at [facility] on this admission. used to be on aldactone at home (and no longer on furosemide) as outpatient. Qualifiers: Acute renal failure type: unspecified Qualified Code(s): N17.9 - Acute kidney failure, unspecified (4) Type II diabetes mellitus: Status: Acute Assessment and plan: Continue SSI, carb coverage Qualifiers: Diabetes mellitus [facility] insulin use: without [facility] use Diabetes mellitus complication status: without complication Qualified Code(s): E11.9 - Type 2 diabetes mellitus without complications (5) Septic shock: Status: Resolved Assessment and plan: Remains on doxycycline. (6) Parainfluenza: Status: Acute Assessment and plan: See COPD exacerbation (7) Tick bite: Status: Acute Assessment and plan: continue doxycycline (8) DVT prophylaxis: Status: Acute Assessment and plan: Continue SC heparin (9) Discharge planning issues: Status: Acute Assessment and plan: Full code Anticipate discharge home tomorrow PT following Subjective Subjective Interval history since last seen: Shira feels better walking today. She had to stop 3 times while walking today. She is not sure she is back to baseline, but is excited about going home tomorrow. No dizziness, CP, SOB at rest, nausea. Her daughter and granddaughter both feel that both her hands and her legs look puffy for her. We discussed that I would give her a dose of furosemide. We also discussed that dairy can be a source of potassium. Exam Narrative Exam Narrative: General: Pleasant obese female who is sitting at the side of the bed, A&Ox3, on 2L of O2 by NC, no dyspnea/tachypnea/cyanosis HEENT: EOMI, MMM Heart: RRR, no m/r/g Lungs: CTAB; I did not hear a cough today, diminished at B bases Abdomen: soft, nontender, nondistended Extremities: 1+ BLE edema, symmetric, B hands puffy, no c/c. Objective Last Vital Signs Temp 36.4 C L 01/26/23 15:20 Pulse 75 01/26/23 15:20 Resp 18 01/26/23 15:20 BP 147/91 H 01/26/23 15:20 Pulse Ox 97 01/26/23 15:20 Laboratory Results - last 24 hr 01/26/23 01/26/23 01/26/23 06:30 10:09 11:05 WBC 14.17 H RBC 3.89 L Hgb 12.6 Hct 36.9 MCV 95 MCH 32.4 MCHC 34.1 RDW 13.7 Plt Count MPV Immature Gran % 2.3 Neutrophils % 78.9 Lymphocytes % 10.5 Monocytes % 7.6 Eosinophils % 0.4 Basophils % 0.3 Nucleated RBC % 0.0 Absolute Neutrophils 11.18 H Absolute Lymphocytes 1.49 Absolute Monocytes 1.08 H Absolute Eosinophils 0.06 Absolute Basophils 0.04 RBC Morphology Normal Sodium 133 L Potassium 5.3 H Chloride 100 Carbon Dioxide 24.8 Anion Gap 8.2 BUN 50 H Creatinine 2.3 H Est GFR (CKD-EPI 2020) 22.31 Glucose 183 H Calcium 9.4 Magnesium 1.8 Procalcitonin 0.2 Add-On Test Request DONE Time Spent with Patient Time Spent with Patient: 25-34 minutes Time was spent: preparing to see the patient(eg.review tests), obtaining and/or reviewing separately otained hiistory, ordering medications,tests, procedures, referring, communicating with other health acute care certified nursing assistant, indepentently interpreting results, counseling the patient and care coordination
[2023-01-26] MEDS: Furosemide 20 MG/2 ML VIAL IVP (17:55)
[2023-01-26] MEDS: Rosuvastatin 10 MG TAB PO (19:28)
[2023-01-26] MEDS: Insulin Glargine 300 UNITS/3 ML PEN SC (21:25)
[2023-01-27 00:15] VITALS: BP 136/80; PULSE 69; RESP 16; TEMP 37.1; O2SAT 98
[2023-01-27 05:14] VITALS: BP 122/80; PULSE 72; RESP 16; TEMP 36.3; O2SAT 98
[2023-01-27 06:37] LABS: Abs Immature Grans 0.29 10^3/uL (0.0-0.06); Absolute Basophil Count 0.06 10^3/uL (0.0-0.2); Absolute Eosinophil Count 0.18 10^3/uL (0.0-0.7); Absolute Lymphocyte Count 1.69 10^3/uL (1.2-3.4); Absolute Monocyte Count 1.12 10^3/uL (0.1-0.8); Absolute Neutrophil Count 11.65 10^3/uL (1.2-6.7); Basophils % 0.4; Eosinophils % 1.2; HCT 37.7 % (36.0-46.0); HGB 12.3 g/dL (11.2-15.7); Immature Grans % 1.9; Lymphocytes % 11.3; MCH 31.8 pg (27.0-33.0); MCHC 32.6 % (32.0-36.0); MCV 97 fL (80-95); MPV 8.8 fL (8.0-11.0); Monocytes % 7.5; Neutrophils % 77.7; Platelet Count 194 10^3/uL (130-400); RBC 3.87 10^6/uL (3.93-5.22); RDW 13.7 % (11.7-14.6); RDW-SD 49.1 fL; WBC 14.99 10^3/uL (4.4-10.8)
[2023-01-27 06:56] LABS: BUN 50 mg/dL (7-18); CREATININE 2.1 mg/dL (0.55-1.02); Calcium 9.2 mg/dL (8.5-10.1); Chloride 100 mmol/L (98-107); Estimated GFR 24.88 (mL/min/1.73m2); Glucose 196 mg/dL (74-106); Magnesium 1.6 mg/dL (1.8-2.4); Potassium 4.4 mmol/L (3.5-5.1); Sodium 135 mmol/L (136-145)
[2023-01-27 07:06] VITALS: BP 120/67; PULSE 68; RESP 18; TEMP 36.1; O2SAT 93
[2023-01-27] MEDS: guaiFENesin 600 MG TABCR PO (08:30)
[2023-01-27] MEDS: Amiodarone 200 MG TAB PO (08:31)
[2023-01-27] MEDS: Escitalopram 20 MG TAB PO (08:31)
[2023-01-27] MEDS: Metoprolol CR 25 MG TABCR PO (08:31)
[2023-01-27] MEDS: Insulin Aspart 300 UNITS/3 ML PEN SC ×6 (08:32→17:36)
[2023-01-27] MEDS: Doxycycline Hyclate 100 MG CAP PO ×2 (08:32→17:39)
[2023-01-27] MEDS: MAGNESIUM SULFATE 2 GM/50 ML BAG IVPB (09:04)
[2023-01-27] MEDS: Normal Saline Flush 10 ML SYR IVP (09:12)
--- NOTE | 2023-01-27 10:04 | PT.INTREAT ---
Date of service: 01/27/23 Time of Service: 11:40 PT Notes Visit Reasons: COPD exacerbation Inpatient Physical Therapy Treatment Note [facility] Date: 01/27/23 PRECAUTIONS: Fall, standard, activity as tolerated. SUBJECTIVE: Patient reports feeling pretty good. OBJECTIVE: Sidelying in bed. Agreeable to therapy. RT Triny also present. ? PAIN: none reported. VITALS: ? Pre-Treatment: SaO2 95% on 2L/min supplemental O2 via nasal cannula, HR 65 BPM ? Post-Treatment: SaO2 95% on 2L/min supplemental O2 via nasal cannula, HR 78 BPM ? ? BED MOBILITY/TRANSFERS? Rolling L/R: modified independent with bilateral side rails. Supine-sit: modified independent with bilateral side rails. ]? Sit-supine: not assessed ? Sit-stand: SBA? Stand-sit: SBA? Bed-Chair: CGA ? Chair-bed: CGA ? Therapeutic Exercises ([id number]): Direct one-on-one instruction in therapeutic exercises to develop strength, endurance, range of motion and flexibility. ? Exercises: Created and reviewed the following HEP with patient. Access Code: [email or web address] URL: [email or web address] Date: 01/27/2023 Prepared by: Amelia Ly Exercises - Side Stepping with Counter Support - 1 x daily - 7 x weekly - 3 sets - 10 reps - Heel Raises with Counter Support - 1 x daily - 7 x weekly - 3 sets - 10 reps - Mini Squat with Counter Support - 1 x daily - 7 x weekly - 3 sets - 10 reps Patient provides demonstration of good understanding of exercises, ability to perform them safely, good understanding of the purpose of a HEP. Ambulation ? Assistive Device: FWW? Weight bearing: Full Assist: CGA, w/c follow, help managing IV pole? Distance:? 200 feet ? Deviation: 2 seated rests. Excellent posture. Adequate heel strike, reduced toe off. ? Provided skilled instruction in proper exercise performance Provided skilled manual cues to facilitate proper muscle recruitment and/or form. ASSESSMENT:? Patient tolerates therapy well, recovering to baseline stats in <3 minutes. Declines afternoon treatment due to fatigue. PLAN: Continue global strengthening per plan of care until patient is medically cleared for discharge. TREATMENT CODE/TIME: 25 minutes beginning at 12:05
[2023-01-27 11:00] VITALS: BP 130/81; PULSE 60; RESP 18; TEMP 36.4; O2SAT 95
[2023-01-27 11:13] LABS: Bilirubin Negative (Negative); Blood Negative (Negative); Clarity Clear (Clear); Glucose 500 mg/dL (Negative); Ketones Negative (Negative); Leukocyte Esterase Negative (Negative); Nitrite Negative (Negative); Specific Gravity 1.015 (1.005-1.025); Urobilinogen 0.2 mg/dL (Up to 0.2); pH 5.5 (5-8)
[2023-01-27 11:31] LABS: Bacteria Few HPF (Negative); Crystals Negative HPF (Negative); Epithelial Cells Few HPF (Negative); Mucus Moderate (Negative); Other Cells Negative (Negative); RBC Negative HPF (0-2); WBC Negative HPF (0-5)
[2023-01-27 11:32] LABS: C & S Indicated? C&S Done As Ordered; Casts Negative LPF (Negative)
[2023-01-27 12:02] VITALS: PULSE 68; PULSE 86; RESP 24; O2SAT 92; O2SAT 96
--- NOTE | 2023-01-27 14:30 | CMPROGNOTE_ITS ---
Date of service: 01/27/23 Time of Service: 14:30 Care Management Progress Note Progress Note Text Progress Note Text: S/O: Shira was sitting up on the edge of her bed when CM met with her. She stated that she is feeling ok today. Per MD, her WBC increased today, although her steroids were stopped. A UA was ordered today, which was negative. Shira stated that her daughter would be driving her home if she is discharged, although she is not available after 2pm today. CM will assist with transportation if needed to support discharge. Shira is happy to return home soon, but is agreeable to staying at [facility] if she is not yet medically cleared. CM will continue to follow. A: Shira is a 72 year old female admitted to [facility] on 01/23/23 for COPD exacerbation. P: Anticipate Shira will return home when ready per MD. She is not agreeable to services at this time. She will transport via private vehicle with family. CM will continue to follow and support discharge planning considerations.
--- NOTE | 2023-01-27 14:58 | CHAPLAIN ---
Shira and I remembered each other from previous admissions. She was sitting up on the edge of the bed when I visited. Shira said she's mostly been sleeping since she's been here.
[2023-01-27 15:05] VITALS: BP 143/63; PULSE 61; RESP 18; TEMP 36.7; O2SAT 99
--- NOTE | 2023-01-27 17:13 | DSE_ITS ---
Date of service: 01/27/23 Time of Service: 17:13 DS: Diagnosis Discharge Diagnosis (1) Septic shock: Status: Resolved (2) Acute on chronic respiratory failure with hypoxia: Status: Acute (3) COPD exacerbation: Status: Acute (4) Parainfluenza: Status: Acute (5) Acute kidney injury superimposed on chronic kidney disease: Status: Acute (6) Type II diabetes mellitus: Status: Acute (7) Tick bite: Status: Acute (8) Hypomagnesemia: Status: Acute Discharge Plan Disposition Patient Disposition: Home Condition: Stable Discharge Details Reason For Visit: COPD exacerbation Admit Date/Time: 01/23/23 16:13 Admit Provider: Navjot Rodriguez Attending Provider: Navjot Rodriguez Primary Care Provider: Liliam Noble Hospital Course Hospital Course: Ms Kelly is a 72 year old female with PMHx of NIDDM2, CKD III, HTN, Afib on amiodarone (and not on anticoagulation due to h/o GI bleeding), as well as chronic hypoxic respiratory failure due to oxygen dependent COPD on 2L of O2 by NV, who was accepted in transfer back from [facility] after an admission for presumed septic vs hypovolemic shock in setting of COPD exacerbation due to parainfluenza and with anuric RHONDA on CKD requiring CRRT at [facility]. She, at the time, was also incidentally found to have a tick bite. She had resumed making urine, was transitioned off of broad spectrum antibiotics to doxycycline, was recommended a total of 5 days of systemic steroids. Since arrival to [facility], she was maintained on doxycycline therapy (should finish it on 02/03/23), finished her steroid burst, and her kidney function was monitored (and her Cr is down to 2.1 on the day of discharge). While her diuretics are on hold at the time of discharge, this may have to be resumed as outpatient. She should have bloodwork done on 01/29/23 to monitor her kidney function, magnesium, her leucocytosis, which is presumed to be due to steroid use at the time of discharge as there is no evidence of acute infection at this time. She did have a PICC line when she arrived to our facility - this is being removed prior to discharge. She is recommended home health PT, but would like to do outpatient PT instead - and this referral is being sent. Her oxygen requirement is back to her usual 2 L of O2 by NV, and she passed an ambulatory pulse ox test on this oxygen level. Care for patient as well as completion of her discharge summary on day of discharge took 45 minutes. Home Meds and New Rx's Prescriptions: New doxycycline hyclate 100 mg Capsule 100 mg PO BID Qty: 14 0RF guaifenesin [Mucus Relief ER] 600 mg Tablet Extended Release 12hr 600 mg PO BID PRN PRN (Reason: cough) Qty: 30 0RF Continued Nicotrol 10 mg cartridge 1 inh inhalation 4-6XD PRN nystatin 100,000 unit/mL suspension 5 ml PO QID 7 Days Qty: 140 6RF Rx Instructions: Use as needed when developing thrush (DME) Oxygen Tank See Rx Instructions .ROUTE .MEDSUPPLY Qty: 1 Rx Instructions: As directed,2L with physical activity. Januvia 50 mg tablet 50 mg PO DAILY gabapentin 100 mg capsule 1 cap PO HS amiodarone [Pacerone] 200 mg Tablet 200 mg PO DAILY Qty: 0 0RF ferrous sulfate 325 mg (65 mg iron) Tablet 325 mg PO BID Qty: 60 0RF Inhaler, Assist Devices [Pocket Chamber] 1 ea miscellaneous DIRECTED Qty: 0 0RF glipizide [Glucotrol XL] 5 mg Tablet Extended Release 24hr 5 mg PO DAILY Qty: 0 0RF omega-3 fatty acids 1,000 mg Capsule 1,000 mg PO DAILY escitalopram oxalate [Lexapro] 20 mg Tablet 20 mg PO DAILY cholecalciferol (vitamin D3) [Vitamin D3] 2,000 unit Capsule 2,000 unit PO DAILY cinnamon bark [Cinnamon] 500 mg Capsule 1,000 mg PO DAILY Rx Instructions: No dose given. albuterol sulfate [ProAir HFA] 90 mcg/actuation Hfa Aerosol Inhaler 2 puff Inhalation Q6H PRN PRN cyclobenzaprine 10 mg Tablet 10 mg PO TID PRN PRN (DME) nebulizers mis See Dose Instructions .ROUTE .MEDSUPPLY Qty: 1 0RF Dose Instruction: As directed Rx Instructions: As directed Trelegy Ellipta 100-62.5-25 mcg blister with device 1 inh INHALATION DAILY Inhaler, Assist Devices [Pocket Chamber] 1 ea miscellaneous DIRECTED Qty: 0 0RF Changed metoprolol succinate 50 mg Tablet Extended Release 24 Hr 25 mg PO DAILY Qty: 30 0RF rosuvastatin 10 mg tablet 10 mg PO DAILY Qty: 30 0RF Discontinued furosemide 40 mg Tablet 40 mg PO BID@0830,1600 Qty: 60 0RF spironolactone 25 mg Tablet 25 mg PO DAILY Qty: 30 0RF Discharge Instructions Instructions: Doxycycline (By mouth), Acute Kidney Injury (DC), Tick Bite (ED), COPD (Chronic Obstructive Pulmonary Disease) (DC) Additional Instructions: Return to the hospital with any fever, bleeding, chest pain, worsening shortness of breath. Follow up with your PCP in 1-2 days. Follow up with physical therapy. Bloodwork on 01/29/23. Stand Alone Forms: Nursing Discharge Form Referrals: Liliam Noble [Primary Care Provider] - (please call tomorrow to make f/u appt in 1-2 weeks ) Chandler Mosley PT [PHYSICAL THERAPIST] - (please call tomorrow for f/u appt in 1-2 weeks ) Activity:: Activity as Tolerated Equipment/Supplies:: No Equipment Needed Diet:: consistent carb heart healthy Discharge Orders Discharge Orders: Discharge Order (Routine); Ordered 01/27/23 Ordered By: Sinai Brewer Other Ambulatory Orders: Basic Metabolic Panel (Routine) Timeframe: 20230129 Facility: [facility] - Location: Laboratory Outpatient - [facility] Ordered By: Sinai Brewer Complete Blood Count w/Diff (Routine) Timeframe: 20230129 Facility: [facility] - Location: Laboratory Outpatient - [facility] Ordered By: Sinai Brewer Magnesium (Routine) Timeframe: 20230129 Facility: [facility] - Location: Laboratory Outpatient - [facility] Ordered By: Sinai Brewer DS: Summary Time Spent with Patient providing and/or coordinating discharge services: Greater than 30 minutes Status at Discharge Functional status at discharge: uses cane/walker Overall status at discharge: patient is back to baseline Mental Status: mental status grossly normal Speech and Movement: speech and movement normal Mood: congruent mood Affect: normal affect Exam Narrative Exam Narrative: General: Pleasant obese female who is sitting at the side of the bed, A&Ox3, on 2L of O2 by NC, no dyspnea/tachypnea/cyanosis HEENT: EOMI, MMM Heart: RRR, no m/r/g Lungs: CTAB; Abdomen: soft, nontender, nondistended Extremities: 1+ BLE edema, symmetric Psych Mental Status: mental status grossly normal Speech and Movement: speech and movement normal Mood: congruent mood Affect: normal affect DS: Data Vitals/I&O Vitals and I&O: Vital Signs Temperature 36.7 C 01/27/23 15:05 Temperature Source Tympanic 01/27/23 15:05 Pulse 61 01/27/23 15:05 Pulse Rhythm Regular 01/27/23 09:45 Respiratory Rate 18 01/27/23 15:05 Respiratory Effort Normal, Non-Labored 01/27/23 09:45 Respiratory Depth Normal 01/27/23 09:45 Respiratory Pattern Normal 01/27/23 09:45 Blood Pressure 143/63 H 01/27/23 15:05 Pulse Oximetry 99 01/27/23 15:05 Oxygen Delivery Method Nasal Cannula 01/27/23 15:05 Oxygen Flow Rate 2 01/27/23 15:05 Pain Level 0 01/27/23 15:05 Comment after walking ithPT 01/26/23 15:20 Intake & Output 01/26/23 01/27/23 01/27/23 23:59 11:59 23:59 Intake Total 290 / 290 Output Total 200 / 950 1200 / 1200 Balance -200 / -700 -910 / -910 Weight 88 kg Intake: IV 50 / 50 Oral 240 / 240 Output: Urine 200 / 950 1200 / 1200 Other: Urine Color Yellow Yellow Urine Appearance Clear Clear Voiding Methods Bedside Commode Bedside Commode Data Completed and Pending Completed studies during hospitalization [Text1]: Mild concentric left ventricular hypertrophy. Ejection fraction is 55%. Wall motion is normal Normal right ventricular size and systolic function Both atria are normal in size Aortic valve is calcified. There is mild to moderate aortic stenosis. Peak gradient is 34 mean is 20 mmHg Labs on day of discharge: Labs from last 24 hours 01/27/23 01/27/23 10:40 06:15 WBC 14.99 H RBC 3.87 L Hgb 12.3 Hct 37.7 MCV 97 H MCH 31.8 MCHC 32.6 RDW 13.7 Plt Count 194 MPV 8.8 Immature Gran % 1.9 Neutrophils % 77.7 Lymphocytes % 11.3 Monocytes % 7.5 Eosinophils % 1.2 Basophils % 0.4 Nucleated RBC % 0.0 Absolute Neutrophils 11.65 H Absolute Lymphocytes 1.69 Absolute Monocytes 1.12 H Absolute Eosinophils 0.18 Absolute Basophils 0.06 Sodium 135 L Potassium 4.4 Chloride 100 Carbon Dioxide 29.0 Anion Gap 6.0 BUN 50 H Creatinine 2.1 H Est GFR (CKD-EPI 2020) 24.88 Glucose 196 H Calcium 9.2 Magnesium 1.6 L Urine Color Yellow Urine Clarity Clear Urine pH 5.5 Ur Specific [place] 1.015 Urine Protein 30 H Urine Ketones Negative Urine Blood Negative Urine Nitrite Negative Urine Bilirubin Negative Urine Urobilinogen 0.2 Ur Leukocyte Esterase Negative Urine RBC Negative Urine WBC Negative Ur Epithelial Cells Few Urine Crystals Negative Urine Bacteria Few Urine Casts Negative Urine Mucus Moderate Urine Other Negative Ur Culture Indicated? C&S Done As Ordered Urine Glucose 500 H 01/27/23 10:40 Urine - Clean Catch Urine Culture - Pending Preliminary micro results at discharge 01/27/23 10:40 Urine Culture - Pending Urine - Clean Catch PFSH All Active Problems (Updated 01/27/23 @ 17:15 by Sinai Brewer MD) Hypomagnesemia (Acute) Acute kidney injury superimposed on chronic kidney disease (Acute) Acute on chronic respiratory failure with hypoxia (Acute) Tick bite (Acute) DVT prophylaxis (Acute) Parainfluenza (Acute) Type II diabetes mellitus (Acute) COPD exacerbation (Acute) Acute hyperkalemia (Acute) Pneumonia (Acute) Acute exacerbation of chronic obstructive pulmonary disease (Acute) Hypoxia (Acute) Abnormal ECG (Acute) Weakness (Acute) Diarrhea (Acute) Congestive heart failure (Chronic) Shortness of breath (Acute) Medication monitoring encounter (Acute) Tubular adenoma of colon (Acute) Diverticulosis (Chronic) Colon polyps (Chronic) Anemia (Chronic) Pleural effusion (Acute) Discharge planning issues (Acute) Tobacco abuse (Chronic) Depression (Chronic) Hypertension (Chronic) Dental abscess (Acute) COPD (chronic obstructive pulmonary disease) (Chronic) Personal history of nicotine dependence (Acute) Right ankle injury (Acute) Anemia (Chronic) Medical History Afib Paroxysmal atrial flutter On supplemental oxygen therapy on O2 of night. Is able to lay flat CKD (chronic kidney disease) stage 3, GFR 30-59 ml/min Pt. denies Diabetes mellitus 10/21/21 [facility] visit not well controlled, A1C 8.2 Discharge planning issues Diabetes mellitus Surgical History History of colonoscopy (~12/2021) Hx of hernia repair Social History Smoking/Tobacco Use Status: Former Tobacco Use Quit Date: 03/23/18 Tobacco: How many years used: 65 Smoking risk assessment performed?: Yes Alcohol Intake: current Alcohol Intake frequency: holidays/special occasions only Drug use: Never Substance use type: does not use Housing: house Do you feel safe at home: Yes Do you feel safe in your relationship?: Yes Time Spent with Patient Time Spent with Patient: 45-69 minutes Time was spent: preparing to see the patient(eg.review tests), obtaining and/or reviewing separately otained hiistory, ordering medications,tests, procedures, referring, communicating with other health acute care registered nurse, indepentently interpreting results, counseling the patient and care coordination
== END 2023-01-27 18:30 | disposition home or self-care (01) | DRG 190 ==
PROVIDERS: Internal Medicine; Admitting Provider Family Medicine; PCP Nurse Practitioner Family; Visit Provider Family Medicine
DX: J44.0 Chronic obstructive pulmonary disease with (acute) lower respiratory infection (principal); J12.2 Parainfluenza virus pneumonia; I13.0 Hypertensive heart and chronic kidney disease with heart failure and stage 1 through stage 4 chronic kidney disease, or unspecified chronic kidney disease; I50.30 Unspecified diastolic (congestive) heart failure; I48.92 Unspecified atrial flutter; J44.1 Chronic obstructive pulmonary disease with (acute) exacerbation; E11.22 Type 2 diabetes mellitus with diabetic chronic kidney disease; E78.5 Hyperlipidemia, unspecified; I35.0 Nonrheumatic aortic (valve) stenosis; I48.0 Paroxysmal atrial fibrillation; F32.A Depression, unspecified; F41.9 Anxiety disorder, unspecified; R94.31 Abnormal electrocardiogram [ECG] [EKG]; D64.9 Anemia, unspecified; Z99.81 Dependence on supplemental oxygen; Z87.891 Personal history of nicotine dependence; E83.42 Hypomagnesemia; N18.30 Chronic kidney disease, stage 3 unspecified
CPT/HCPCS: 00123; 36415; 80048; 84145; 85027; 93306; 94618; 97110; 97162; 81003; 81015; 83735; 85025; 87070; 87086; 87205; 94667; 94668; 94760; 99223; 99232; 99239; J1941; J7512

== ENCOUNTER 2023-02-17 08:39 | Outpatient (CLI) | payer MEDICARE, SELFPAY ==
--- NOTE | 2023-02-17 08:30 | RT.EKG_ITS ---
APPROVED REPORT Exam: Resting ECG Reason for Exam: afib Patient Location: O HR:61 bpm ECG Measurements Heart Rate 61 AXIS HI [id number] P [id number] QRSd 219 QRS 144 QT 526 T 2 QTc 530 Conclusion Low atrial rhythm /RBBB
== END 2023-02-17 08:40 | disposition home or self-care (01) ==
LOC: DI.CARD 08:40
PROVIDERS: PCP Nurse Practitioner Family; Visit Provider Internal Medicine Cardiovascular Disease
DX: I48.91 Unspecified atrial fibrillation (principal); I48.92 Unspecified atrial flutter
CPT/HCPCS: 93010

== ENCOUNTER → 2023-02-17 12:52 | Outpatient (BNVA) | payer MEDICARE, SELFPAY | PROVIDERS: PCP Nurse Practitioner Family; Referring Provider Nurse Practitioner Family; Visit Provider Internal Medicine Cardiovascular Disease | DX: I35.0 Nonrheumatic aortic (valve) stenosis (principal); J96.21 Acute and chronic respiratory failure with hypoxia; I48.0 Paroxysmal atrial fibrillation; Z79.899 Other long term (current) drug therapy; J44.9 Chronic obstructive pulmonary disease, unspecified | CPT/HCPCS: 93005; 99214 ==

== ENCOUNTER 2023-04-07 14:14 | Outpatient (REF) | payer MEDICARE, SELFPAY ==
[2023-04-07 19:52] LABS: Anion Gap 3.7 mmol/L (3-11); BUN 25 mg/dL (7-18); CO2 32.3 mmol/L (21.0-32.0); CREATININE 1.7 mg/dL (0.55-1.02); Calcium 9.4 mg/dL (8.5-10.1); Chloride 102 mmol/L (98-107); Estimated GFR 31.86 (mL/min/1.73m2); Glucose 273 mg/dL (74-106); Potassium 5.1 mmol/L (3.5-5.1); Sodium 138 mmol/L (136-145)
[2023-04-07 20:38] LABS: Hemoglobin A1C 7.3 % (<5.7)
== END 2023-04-07 14:15 | disposition home or self-care (01) ==
LOC: NCHCN 14:14
PROVIDERS: PCP Nurse Practitioner Family; Visit Provider Nurse Practitioner Family
DX: E11.9 Type 2 diabetes mellitus without complications (principal); I10 Essential (primary) hypertension
CPT/HCPCS: 80048; 83036

== ENCOUNTER 2023-06-26 10:25 | Inpatient (IN) | payer MEDICARE, SELFPAY ==
[2023-06-26] VITALS (125 sets, daily range): BP systolic 33–244; BP diastolic 12–230; PULSE 60–203; RESP 14–49; TEMP 36.6–38.1; O2SAT 84–100
--- NOTE | 2023-06-26 10:15 | RT.EKG_ITS ---
APPROVED REPORT Exam: Resting ECG Reason for Exam: Respiratory distress Patient Location: E HR:91 bpm ECG Measurements Heart Rate 91 AXIS IN 71 P 0 QRSd 166 QRS -127 QT 407 T 12 QTc 499 Conclusion Sinus rhythm...normal P axis, V-rate 60- 99 Right bundle branch block...QRSd>120, terminal axis(90,270) Anterior infarct, age indeterminate...Q >35mS, T neg, in V2-V5 Sinus rhythm with RBBB, anterior q wave, when compared to prior 02/17/23 heart rate has increased. W D
[2023-06-26] MEDS: methylPREDNISolone SUCC 125 MG VIAL IVP (10:42)
[2023-06-26] MEDS: Albuterol/Ipratropium 3 ML UPD VIAL UPD ×2 (10:42→11:02)
[2023-06-26] MEDS: Normal Saline 1,000 ML 1000 ML IV ×3 (10:45→13:48)
[2023-06-26] MEDS: MAGNESIUM SULFATE 2 GM/50 ML BAG IVPB (10:46)
[2023-06-26 10:47] LABS: BE -5 mmol/L (-2-3); HCO3 21 mmol/L (22-26); pCO2 46 mmHg (35-45); pH 7.28 (7.35-7.45); pO2 63 mmHg (80-105); sO2 92 % (95-98); tCO2 20 mmol/L (23-27)
[2023-06-26 10:49] LABS: FIO2L 100 L; Site Left Radial
[2023-06-26 10:51] LABS: HCT 43.4 % (36.0-46.0); HGB 13.8 g/dL (11.2-15.7); MCH 30.5 pg (27.0-33.0); MCHC 31.8 % (32.0-36.0); MCV 96 fL (80-95); MPV 9.2 fL (8.0-11.0); Platelet Count 297 10^3/uL (130-400); RBC 4.52 10^6/uL (3.93-5.22); RDW 14.5 % (11.7-14.6); RDW-SD 51.1 fL
[2023-06-26 10:53] LABS: WBC 27.95 10^3/uL (4.4-10.8)
[2023-06-26 10:54] LABS: Lactate 8.9 mmol/L (0.6-1.4)
[2023-06-26] MEDS: Norepinephrine in D5W 8 MG/250 ML BAG 9.4 MG IV (11:00)
[2023-06-26 11:05] LABS: Source Nasal/Nares
--- NOTE | 2023-06-26 11:08 | DI.RAD_ITS ---
Exam(s) XR PORTABLE CHEST AP EXAM: XR PORTABLE CHEST AP CLINICAL HISTORY: resp distress. TECHNIQUE: 2D digital imaging was performed. COMPARISON: CR,XR XR PORTABLE CHEST AP from 01/18/2022 CR,XR XR PORTABLE CHEST AP from 01/20/2023 FINDINGS: Single AP portable view. Heart size is upper normal. The upper mediastinum is not widened. There is significant infiltrate in the medial right lung base and right pleural effusion. Also incre ased markings in the left lung base. IMPRESSION: As above. Recommend nonportable PA and lateral views when clinically possible or CT scan DATA REPOSITORY: RADIATION DOSE DELIVERED:
[2023-06-26 11:11] LABS: Absolute Lymphocyte Count 0.56 10^3/uL (1.2-3.4); Absolute Neutrophil Count 26.83 10^3/uL (1.2-6.7); Bands % 37; Diff Comment Manual Differential; Metamyelocytes % 2; RBC Morphology Normal
[2023-06-26 11:21] LABS: ALT 28 U/L (14-59); AST 52 U/L (15-37); Albumin 2.5 g/dL (3.4-5.0); Alkaline Phosphatase 76 U/L (46-116); Anion Gap 16.6 mmol/L (3-11); BUN 45 mg/dL (7-18); Bilirubin, Total 1.2 mg/dL (0.2-1.0); CO2 23.4 mmol/L (21.0-32.0); Chloride 93 mmol/L (98-107); Estimated GFR 12.14 (mL/min/1.73m2); Glucose 233 mg/dL (74-106); Potassium 4.9 mmol/L (3.5-5.1); Sodium 133 mmol/L (136-145); Total Protein 7.3 g/dL (6.4-8.2); Troponin I 59 ng/L (< or =60)
[2023-06-26 11:26] LABS: CREATININE 3.8 mg/dL (0.55-1.02)
[2023-06-26 11:36] LABS: COVID-19 PCR Negative (Negative)
[2023-06-26] MEDS: PIPERACILLIN/TAZO 4.5 GM in Normal Saline 100 ML IVPB (12:03)
--- NOTE | 2023-06-26 13:06 | HPE_ITS ---
Date of service: 06/26/23 Time of Service: 13:07 Assessment and Plan Assessment and plan (1) Septic shock: Status: Resolved Assessment and plan: - Patient was criteria for septic shock with respiratory rate of 44, pulse of 95, white blood cell count of 27, chest x-ray highly suspicious for pneumonia, RHONDA on CKD with creatinine increasing from 1.7-3.8, lactic acid of 7.1, and ongoing hypotension with systolic less than 80 despite adequate fluid resuscitation requiring IV Levophed -Patient was started on Zosyn in the emergency department and will continue -Follow-up repeat lactic acid -Patient's blood pressure now appears to have stabilized with maps greater than 65 while on 5 mics of Levophed, will wean as tolerated -Follow-up blood and sputum culture results (2) CAP (community acquired pneumonia): Status: Acute Assessment and plan: - As noted above (3) Acute on chronic kidney failure: Status: Acute Assessment and plan: - As noted above (4) Acute on chronic respiratory failure with hypoxia: Status: Acute Assessment and plan: - Due to septic shock and community-acquired pneumonia as noted above as well as underlying COPD without acute exacerbation -Currently on BiPAP with significant improvement in respiratory rate and oxygen requirements -Wean as tolerated (5) COPD (chronic obstructive pulmonary disease): Status: Chronic Assessment and plan: - Without acute exacerbation -Will hold off on giving steroids at this time -Will continue home inhaler regimen Qualifiers: COPD type: emphysema Emphysema type: centrilobular Qualified Code(s): J43.2 - Centrilobular emphysema (6) Hypertension: Status: Chronic Assessment and plan: - Hold home antihypertensives while patient is hypotensive and on IV Levophed Qualifiers: Hypertension type: unspecified Qualified Code(s): I10 - Essential (primary) hypertension (7) Depression: Status: Chronic Assessment and plan: - Continue home SSRI (8) Diabetes: Status: Chronic Assessment and plan: - Hold home metformin and sitagliptin to 2 RHONDA in the setting of infection -Sliding scale insulin, carb consistent diet History of Present Illness History of Present Illness Chief Complaint: Shortness of breath Narrative: 73-year-old female with a past medical history of NIDDM, hypertension, hyperlipidemia, CKD, COPD, HFpEF, moderate aortic stenosis on echocardiogram in 2019, paroxysmal A-fib, depression, anxiety and was recently admitted at [facility] subsequently transferred to [facility] with septic shock presents back to the emergency department today with complaints of shortness of breath. Patient states that she had been having increasing shortness of breath over the last few days, when she called her ambulance she was noted to have intercostal retractions, placed on 15 L nonrebreather with oxygen saturations in the 80%. She denies any fevers, lightheadedness, dizziness, chest pain, nausea vomiting or diarrhea but was noted as having stool on her leg. In the emergency department the patient was noted as being significantly tachypneic with a respiratory rate of 48, pulse ox of 84% on room air for which she was placed on BiPAP, she was tachycardic with a heart rate of 94, white count was 27.95, creatinine was up from baseline to 3.8 (baseline 1.7), ABG showed metabolic acidosis due to lactic acid which was 8.9, additionally O2 was noted to be 63 and this was known prior to being placed on BiPAP. Patient was also noted as having blood pressure of 68/33 for which she was given 2 L of fluid resuscitation with minimal response prompting the initiation of Levophed which the patient is currently on 5 mics. Since that time patient also had chest x-ray which was highly suspicious for pneumonia, and she has had significant improvement with her respiratory rate on BiPAP and looks far more comfortable. At which time emergency room physician paged hospitalist for admission for patient with septic shock secondary to pneumonia with acute on chronic hypoxic respiratory failure, and RHONDA on CKD. Review of Systems All systems reviewed & are unremarkable except as noted in HPI and below PFSH All Active Problems (Updated 06/26/23 @ 13:28 by PEYMAN MADRIGAL) Diabetes (Chronic) Acute on chronic respiratory failure with hypoxia (Acute) Acute on chronic kidney failure (Acute) CAP (community acquired pneumonia) (Acute) Pneumonia (Acute) Acute on chronic renal insufficiency (Acute) Sepsis (Acute) Aortic stenosis (Chronic) Obesity (Chronic) HLD (hyperlipidemia) (Acute) Hypomagnesemia (Acute) Acute kidney injury superimposed on chronic kidney disease (Acute) Acute on chronic respiratory failure with hypoxia (Acute) Tick bite (Acute) Parainfluenza (Acute) Type II diabetes mellitus (Acute) COPD exacerbation (Acute) Acute hyperkalemia (Acute) Pneumonia (Acute) Acute exacerbation of chronic obstructive pulmonary disease (Acute) Hypoxia (Acute) Abnormal ECG (Acute) Weakness (Acute) Diarrhea (Acute) Congestive heart failure (Chronic) Shortness of breath (Acute) Medication monitoring encounter (Acute) Tubular adenoma of colon (Acute) Diverticulosis (Chronic) Colon polyps (Chronic) Anemia (Chronic) Pleural effusion (Acute) Tobacco abuse (Chronic) Depression (Chronic) Hypertension (Chronic) Dental abscess (Acute) COPD (chronic obstructive pulmonary disease) (Chronic) Personal history of nicotine dependence (Acute) Right ankle injury (Acute) Anemia (Chronic) Medical History Afib Paroxysmal atrial flutter On supplemental oxygen therapy on O2 of night. Is able to lay flat CKD (chronic kidney disease) stage 3, GFR 30-59 ml/min Pt. denies Diabetes mellitus 10/21/21 [facility] visit not well controlled, A1C 8.2 Discharge planning issues Diabetes mellitus Surgical History History of colonoscopy (~12/2021) Hx of hernia repair Social History Smoking/Tobacco Use Status: Former Tobacco Use Quit Date: 03/23/18 Tobacco: How many years used: 65 Smoking risk assessment performed?: Yes Alcohol Intake: current Alcohol Intake frequency: holidays/special occasions only Drug use: Never Substance use type: does not use Housing: house Do you feel safe at home: Yes Do you feel safe in your relationship?: Yes Meds Allergies and Home Medications Allergies Allergy/AdvReac Type Severity Reaction Status Date / Time codeine Allergy Mild Verified 02/17/23 13:16 fluticasone Allergy Mild Verified 02/17/23 13:16 [From Advair Diskus] salmeterol Allergy Mild Verified 02/17/23 13:16 [From Advair Diskus] Sulfa (Sulfonamide Allergy Mild Unknown Verified 02/17/23 13:16 Antibiotics) sulfasalazine AdvReac Intermediate Verified 02/17/23 13:16 Home Medications Medication Instructions Recorded Confirmed Type albuterol sulfate 90 mcg/actuation 2 puff inhalation Q6H PRN PRN 11/25/17 02/17/23 History aerosol inhaler (ProAir HFA) cholecalciferol (vitamin D3) 50 2,000 unit PO DAILY 11/25/17 02/17/23 History mcg (2,000 unit) capsule (Vitamin D3) cinnamon bark 500 mg capsule 1,000 mg PO DAILY 11/25/17 02/17/23 History (Cinnamon) escitalopram oxalate 20 mg tablet 20 mg PO DAILY 11/25/17 02/17/23 History (Lexapro) omega-3 fatty acids 1,000 mg 1,000 mg PO DAILY 11/25/17 02/17/23 History capsule nebulizers #1 ea 11/30/17 02/17/23 Rx fluticasone fur. 100 mcg-umeclid 1 inh inhalation DAILY 09/30/20 02/17/23 History 62.5 mcg-vilant 25 mcg inhalat.powder (Trelegy Ellipta) Oxygen #1 ea 10/25/20 02/17/23 History gabapentin 100 mg capsule 1 cap PO HS leg cramps 10/29/21 02/17/23 History nicotine 10 mg inhalation 1 inh inhalation 4-6XD PRN 11/11/21 02/17/23 History cartridge (Nicotrol) Inhaler, Assist Devices [Pocket 1 ea miscellaneous DIRECTED ##0 01/23/22 02/17/23 Rx Chamber] amiodarone 200 mg tablet (Pacerone) 200 mg PO DAILY #0 tabs 01/23/22 02/17/23 Rx ferrous sulfate 325 mg (65 mg 325 mg PO BID #60 tabs 01/23/22 02/17/23 Rx iron) tablet glipizide 5 mg tablet, extended 5 mg PO DAILY #0 tabs 01/23/22 02/17/23 Rx release 24 hr (Glucotrol XL) nystatin 100,000 unit/mL oral 5 ml PO QID 7 days #140 mL 06/30/22 02/17/23 Rx suspension metoprolol succinate 50 mg 25 mg (1/2 x 50 mg) PO DAILY #30 01/27/23 02/17/23 Rx tablet,extended release 24 hr tabs rosuvastatin 10 mg tablet 10 mg PO DAILY #30 tabs 01/27/23 02/17/23 Rx cyanocobalamin (vitamin B-12) 1,000 mcg PO DAILY 02/18/23 History 1,000 mcg capsule cyclobenzaprine 10 mg tablet 10 mg PO HS PRN 02/18/23 02/17/23 History lisinopril 5 mg tablet 5 mg PO DAILY 02/18/23 History nystatin 100,000 unit/gram topical 1 applic topical BID 02/18/23 History ointment sitagliptin phosphate 50 mg tablet 25 mg PO DAILY 02/18/23 02/17/23 History (Januvia) spironolactone 25 mg tablet 25 mg PO DAILY 02/18/23 History vitamin B complex-folic acid 0.4 1 tab PO DAILY 02/18/23 History mg tablet (B Complex 1 (with folic acid)) Exam Narrative Exam Narrative: Morbidly obese chronically ill-appearing female laying in bed with BiPAP mask on and mild respiratory distress, heart regular rate rhythm, lungs diminished in bilateral bases with coarse breath sounds heard over the anterior portion of the right middle lobe, abdomen soft, nontender, nondistended Results Labs 06/26/23 10:40 06/26/23 10:40 Labs: Laboratory Results - last 24 hr 06/26/23 06/26/23 06/26/23 10:40 10:46 11:00 WBC 27.95 H* RBC 4.52 Hgb 13.8 Hct 43.4 MCV 96 H MCH 30.5 MCHC 31.8 L RDW 14.5 Plt Count 297 MPV 9.2 Immature Gran % See Differential Neutrophils % 59.0 Band Neutrophils % 37 Lymphocytes % 2.0 Monocytes % 0.0 Eosinophils % 0.0 Basophils % 0.0 Metamyelocytes % 2 Nucleated RBC % 0.0 Absolute Neutrophils 26.83 H Absolute Lymphocytes 0.56 L Absolute Monocytes 0.00 L Absolute Eosinophils 0.00 Absolute Basophils 0.00 RBC Morphology Normal ABG Sample Site Left Radial ABG pH 7.28 L ABG pCO2 46 H ABG pO2 63 L ABG HCO3 21 L ABG Total CO2 20 L ABG O2 Saturation 92 L ABG Base Excess -5 L VBG Lactate 8.9 H* Oxygen Liter Flow 100 Sodium 133 L Potassium 4.9 Chloride 93 L Carbon Dioxide 23.4 Anion Gap 16.6 H BUN 45 H Creatinine 3.8 H* Est GFR (CKD-EPI 2020) 12.14 Glucose 233 H Calcium 9.0 Total Bilirubin 1.2 H AST 52 H ALT 28 Alkaline Phosphatase 76 Troponin I 59 Total Protein 7.3 Albumin 2.5 L COVID-19 Source Nasal/Nares SARS-CoV-2 (PCR) Negative Last Vital Signs Pulse 76 06/26/23 11:06 Resp 44 H 06/26/23 11:23 BP 139/85 06/26/23 11:06 Pulse Ox 97 06/26/23 11:02 Time Spent Time spent with Patient: 55-74 minutes (60 minutes of critical care time assessing and admitting patient with septic shock currently on IV Levophed) Time was spent: preparing to see the patient(eg.review tests), obtaining and/or reviewing separately otained hiistory, ordering medications,tests, procedures, referring, communicating with other health patient care secretary, indepentently interpreting results, counseling the patient and care coordination
--- NOTE | 2023-06-26 13:13 | W.ED.GENAD ---
Discharge Plan Disposition Patient Disposition: Admit to [facility] Condition: Serious Discharge Details Clinical Impression: Sepsis, Acute on chronic renal insufficiency, Pneumonia Admit Date/Time: 06/26/23 13:00 Admit Provider: Navjot Rodriguez Attending Provider: Navjot Rodriguez Primary Care Provider: Liliam Noble ED Provider: Gi Mcadams General Date/Time Provider Initiated Documentation: 06/26/23 10:32. HPI Narrative: 73-year-old female with history of chronic kidney disease, CHF, COPD presents for evaluation of shortness of breath. Patient has not felt well for the last week. She has had increased shortness of breath over the last 2 to 3 days. EMS was called. She was hypoxic and hypotensive en route. They were unable to obtain IV access. She was placed on nonrebreather. Related Data Home Medications Medication Instructions Recorded Confirmed albuterol sulfate 90 mcg/actuation 2 puff inhalation Q6H PRN PRN 11/25/17 02/17/23 aerosol inhaler (ProAir HFA) cholecalciferol (vitamin D3) 50 2,000 unit PO DAILY 11/25/17 02/17/23 mcg (2,000 unit) capsule (Vitamin D3) cinnamon bark 500 mg capsule 1,000 mg PO DAILY 11/25/17 02/17/23 (Cinnamon) escitalopram oxalate 20 mg tablet 20 mg PO DAILY 11/25/17 02/17/23 (Lexapro) omega-3 fatty acids 1,000 mg 1,000 mg PO DAILY 11/25/17 02/17/23 capsule nebulizers #1 ea 11/30/17 02/17/23 fluticasone fur. 100 mcg-umeclid 1 inh inhalation DAILY 09/30/20 02/17/23 62.5 mcg-vilant 25 mcg inhalat.powder (Trelegy Ellipta) Oxygen #1 ea 10/25/20 02/17/23 gabapentin 100 mg capsule 1 cap PO HS leg cramps 10/29/21 02/17/23 nicotine 10 mg inhalation 1 inh inhalation 4-6XD PRN 11/11/21 02/17/23 cartridge (Nicotrol) Inhaler, Assist Devices [Pocket 1 ea miscellaneous DIRECTED ##0 01/23/22 02/17/23 Chamber] amiodarone 200 mg tablet (Pacerone) 200 mg PO DAILY #0 tabs 01/23/22 02/17/23 ferrous sulfate 325 mg (65 mg 325 mg PO BID #60 tabs 01/23/22 02/17/23 iron) tablet glipizide 5 mg tablet, extended 5 mg PO DAILY #0 tabs 01/23/22 02/17/23 release 24 hr (Glucotrol XL) nystatin 100,000 unit/mL oral 5 ml PO QID 7 days #140 mL 06/30/22 02/17/23 suspension metoprolol succinate 50 mg 25 mg (1/2 x 50 mg) PO DAILY #30 01/27/23 02/17/23 tablet,extended release 24 hr tabs rosuvastatin 10 mg tablet 10 mg PO DAILY #30 tabs 01/27/23 02/17/23 cyanocobalamin (vitamin B-12) 1,000 mcg PO DAILY 02/18/23 1,000 mcg capsule cyclobenzaprine 10 mg tablet 10 mg PO HS PRN 02/18/23 02/17/23 lisinopril 5 mg tablet 5 mg PO DAILY 02/18/23 nystatin 100,000 unit/gram topical 1 applic topical BID 02/18/23 ointment sitagliptin phosphate 50 mg tablet 25 mg PO DAILY 02/18/23 02/17/23 (Januvia) spironolactone 25 mg tablet 25 mg PO DAILY 02/18/23 vitamin B complex-folic acid 0.4 1 tab PO DAILY 02/18/23 mg tablet (B Complex 1 (with folic acid)) Previous Rx's Medication Instructions Recorded nebulizers #1 ea 11/30/17 Inhaler, Assist Devices [Pocket 1 ea miscellaneous DIRECTED ##0 01/23/22 Chamber] amiodarone 200 mg tablet (Pacerone) 200 mg PO DAILY #0 tabs 01/23/22 ferrous sulfate 325 mg (65 mg 325 mg PO BID #60 tabs 01/23/22 iron) tablet glipizide 5 mg tablet, extended 5 mg PO DAILY #0 tabs 01/23/22 release 24 hr (Glucotrol XL) nystatin 100,000 unit/mL oral 5 ml PO QID 7 days #140 mL 06/30/22 suspension metoprolol succinate 50 mg 25 mg (1/2 x 50 mg) PO DAILY #30 01/27/23 tablet,extended release 24 hr tabs rosuvastatin 10 mg tablet 10 mg PO DAILY #30 tabs 01/27/23 Allergies Allergy/AdvReac Type Severity Reaction Status Date / Time codeine Allergy Mild Verified 02/17/23 13:16 fluticasone Allergy Mild Verified 02/17/23 13:16 [From Advair Diskus] salmeterol Allergy Mild Verified 02/17/23 13:16 [From Advair Diskus] Sulfa (Sulfonamide Allergy Mild Unknown Verified 02/17/23 13:16 Antibiotics) sulfasalazine AdvReac Intermediate Verified 02/17/23 13:16 General Stated Complaint: SOB/SuddenOnset VIRY: 2 Review of Systems Narrative: Remainder of review of systems otherwise unobtainable due to clinical condition. Exam Narrative Exam Narrative: General: non-toxic, severe respiratory distress, uncomfortable HEENT: normocephalic, atraumatic, lids and lashes normal, PERRL, EOMI, anicteric sclera, no conjunctival injection, moist oral mucosa Card: regular rate and rhythm, S1S2, no murmurs, rubs, or gallops Lungs: Increased respiratory rate, minimal air exchange, decreased breath sounds at bases, diffuse rhonchi Abd: soft, non-tender, non-distended, normal bowel sounds, no rebound or guarding, no peritoneal signs Musculoskeletal: full range of motion of arms and legs, no tenderness to palpation. no clubbing, cyanosis, or edema Neurologic: appropriate for age, strength normal Psych: alert and oriented Skin: no petechiae, no lesions, warm and dry Course Vital Signs Vital signs: Vital Signs Pulse 94 H 06/26/23 10:26 Respiratory Rate 48 H 06/26/23 10:26 Pulse Oximetry 84 L 06/26/23 10:26 Pulse 82 06/26/23 13:01 Pulse 92 H 06/26/23 13:01 Respiratory Rate 38 H 06/26/23 13:01 Respiratory Effort Short of Breath, Labored 06/26/23 11:23 Respiratory Depth Retractive 06/26/23 11:23 Respiratory Pattern Tachypnea 06/26/23 11:23 Blood Pressure 127/104 H 06/26/23 13:01 Blood Pressure Mean 108 06/26/23 13:01 Blood Pressure Position Sitting 06/26/23 10:26 Pulse Oximetry 97 06/26/23 12:51 Oxygen Delivery Method Bi-pap 06/26/23 10:42 Lab/Test Results Lab/Test Results: 06/26/23 10:40 Blood Blood Culture - Pending 06/26/23 10:32 Blood Blood Culture - Pending Laboratory Tests Range/Units 06/26/23 06/26/23 06/26/23 10:40 10:46 11:00 WBC (4.4-10.8) 10^3/uL 27.95 H* RBC (3.93-5.22) 10^6/uL 4.52 Hgb (11.2-15.7) g/dL 13.8 Hct (36.0-46.0) % 43.4 MCV (80-95) fL 96 H MCH (27.0-33.0) pg 30.5 MCHC (32.0-36.0) % 31.8 L RDW (11.7-14.6) % 14.5 Plt Count (130-400) 10^3/uL 297 MPV (8.0-11.0) fL 9.2 Immature Gran % See Differential Neutrophils % 59.0 Band Neutrophils % 37 Lymphocytes % 2.0 Monocytes % 0.0 Eosinophils % 0.0 Basophils % 0.0 Metamyelocytes % 2 Nucleated RBC % (0.0-0.3) % 0.0 Absolute Neutrophils (1.2-6.7) 10^3/uL 26.83 H Absolute Lymphocytes (1.2-3.4) 10^3/uL 0.56 L Absolute Monocytes (0.1-0.8) 10^3/uL 0.00 L Absolute Eosinophils (0.0-0.7) 10^3/uL 0.00 Absolute Basophils (0.0-0.2) 10^3/uL 0.00 RBC Morphology Normal ABG Sample Site Left Radial ABG pH (7.35-7.45) 7.28 L ABG pCO2 (35-45) mmHg 46 H ABG pO2 (80-105) mmHg 63 L ABG HCO3 (22-26) mmol/L 21 L ABG Total CO2 (23-27) mmol/L 20 L ABG O2 Saturation (95-98) % 92 L ABG Base Excess (-2-3) mmol/L -5 L VBG Lactate (0.6-1.4) mmol/L 8.9 H* Oxygen Liter Flow L 100 Sodium (136-145) mmol/L 133 L Potassium (3.5-5.1) mmol/L 4.9 Chloride (98-107) mmol/L 93 L Carbon Dioxide (21.0-32.0) mmol/L 23.4 Anion Gap (3-11) mmol/L 16.6 H BUN (7-18) mg/dL 45 H Creatinine (0.55-1.02) mg/dL 3.8 H* Est GFR (CKD-EPI 2020) (mL/min/1.73m2) 12.14 Glucose (74-106) mg/dL 233 H Calcium (8.5-10.1) mg/dL 9.0 Total Bilirubin (0.2-1.0) mg/dL 1.2 H AST (15-37) U/L 52 H ALT (14-59) U/L 28 Alkaline Phosphatase (46-116) U/L 76 Troponin I (< or =60) ng/L 59 Total Protein (6.4-8.2) g/dL 7.3 Albumin (3.4-5.0) g/dL 2.5 L COVID-19 Source Nasal/Nares SARS-CoV-2 (PCR) (Negative) Negative Procedures Central Line Placement Right IJ: Time Out Performed: Yes Patient Placed on Monitor/Pulse Ox: Yes Prep: mask, gown and gloves Central Line Prep: Chlorhexidine scrub Local Anesthetic: Lidocaine 1% Amount of anesthesia used (mL): 2 Ultrasound Used for Placement: Yes Central Line Lumen Inserted: triple Additional Comments: Unable to obtain access Right Femoral: Time Out Performed: Yes Patient Placed on Monitor/Pulse Ox: Yes Prep: mask, gown and gloves Central Line Prep: Chlorhexidine scrub Local Anesthetic: Lidocaine 1% Amount of anesthesia used (mL): 2 Additional Comments: unable to access vein Medical Decision Making 73-year-old female presents with significant respiratory distress as well as hypotension. She was placed on BiPAP upon arrival. She received IV Solu-Medrol, IV magnesium, DuoNeb. ABG was obtained upon arrival and showed a pH of 7.28. Patient's respiratory symptoms did improve with BiPAP placement. She is a full code but given her clinical improvement will hold on intubation at this time. She received a DuoNeb. Nursing was able to place 1 peripheral IV. Patient received Solu-Medrol and IV magnesium. Secondary to patient's body habitus it was very difficult to obtain accurate blood pressure. Blood pressure was taken from lower portion of the arm. Blood pressure was labile but remained hypotensive. She did receive a liter of IV fluids. I started peripheral iam for blood pressure support. Chest x-ray shows pneumonia. IV Zosyn was ordered. Laboratory studies showed significantly elevated white count as well as lactic acid. Nursing was unable to obtain further peripheral IV placement. I did attempt peripheral IV left upper extremity. Blood was obtained however IV was unsuccessful. Patient was verbally consented for triple-lumen. On review patient's anatomy ultrasound shows very difficult anatomy on left side of neck. Right-sided neck appeared to have better anatomy. I did attempt central line placement however unable to access vein despite popping the needle. This is likely secondary to body habitus. I did attempt right groin access. Again, secondary to body habitus unable to access the vein. Patient continues to improve clinically from respiratory status. Ortega catheter was placed with minimal urine output. Third liter of IV fluid is ordered. Patient is alert and interactive at this time. Will require ICU admission. Case discussed with Dr. Rodriguez, hospitalist who will admit to the ICU. ECG Data Interpretation: 12 lead EKG performed at Indication: 10: 31 Rhythm: Normal sinus rhythm Rate: 91 Ogden:Normal Intervals: Normal QRS: Right bundle branch block ST segments: Normal T Waves: Normal INTERPRETATION: Sinus rhythm with right bundle branch block and anterior Q waves Comparison to old EKG: Increased heart rate as noted The 12 lead EKG was interpreted by myself Quality:SDOH Health Related Social Needs: No Data to Display Critical Care Time Critical Care Time Attestation: CRITICAL CARE Total critical care time: 75 minutes Critical care interventions: Oxygen, BiPAP, IV antibiotics, IV pressors, record review, hospice consultation Total critical care time included the assessment and discussions as described in the emergency department history, physical, and medical decision making. The critical care time provided excludes separately billable procedures. PFSH All Active Problems (Updated 06/26/23 @ 13:28 by PEYMAN MADRIGAL) Diabetes (Chronic) Acute on chronic respiratory failure with hypoxia (Acute) Acute on chronic kidney failure (Acute) CAP (community acquired pneumonia) (Acute) Pneumonia (Acute) Acute on chronic renal insufficiency (Acute) Sepsis (Acute) Aortic stenosis (Chronic) Obesity (Chronic) HLD (hyperlipidemia) (Acute) Hypomagnesemia (Acute) Acute kidney injury superimposed on chronic kidney disease (Acute) Acute on chronic respiratory failure with hypoxia (Acute) Tick bite (Acute) Parainfluenza (Acute) Type II diabetes mellitus (Acute) COPD exacerbation (Acute) Acute hyperkalemia (Acute) Pneumonia (Acute) Acute exacerbation of chronic obstructive pulmonary disease (Acute) Hypoxia (Acute) Abnormal ECG (Acute) Weakness (Acute) Diarrhea (Acute) Congestive heart failure (Chronic) Shortness of breath (Acute) Medication monitoring encounter (Acute) Tubular adenoma of colon (Acute) Diverticulosis (Chronic) Colon polyps (Chronic) Anemia (Chronic) Pleural effusion (Acute) Tobacco abuse (Chronic) Depression (Chronic) Hypertension (Chronic) Dental abscess (Acute) COPD (chronic obstructive pulmonary disease) (Chronic) Personal history of nicotine dependence (Acute) Right ankle injury (Acute) Anemia (Chronic) Medical History Afib Paroxysmal atrial flutter On supplemental oxygen therapy on O2 of night. Is able to lay flat CKD (chronic kidney disease) stage 3, GFR 30-59 ml/min Pt. denies Diabetes mellitus 10/21/21 [facility] visit not well controlled, A1C 8.2 Discharge planning issues Diabetes mellitus Surgical History History of colonoscopy (~12/2021) Hx of hernia repair Social History Smoking/Tobacco Use Status: Former Tobacco Use Quit Date: 03/23/18 Tobacco: How many years used: 65 Smoking risk assessment performed?: Yes Alcohol Intake: current Alcohol Intake frequency: holidays/special occasions only Drug use: Never Substance use type: does not use Housing: house Do you feel safe at home: Yes Do you feel safe in your relationship?: Yes
[2023-06-26 13:15] LABS: Bilirubin Small (Negative); Blood Moderate (Negative); Clarity Sl Cloudy (Clear); Glucose 100 mg/dL (Negative); Ketones 15 mg/dL (Negative); Leukocyte Esterase Negative (Negative); Nitrite Negative (Negative); Specific Gravity >= 1.030 (1.005-1.025)
[2023-06-26 13:23] LABS: Bacteria Moderate HPF (Negative); C & S Indicated? Yes; Crystals Many Amorphous HPF (Negative); Epithelial Cells Moderate HPF (Negative); Mucus Negative (Negative)
--- NOTE | 2023-06-26 16:30 | DI.RAD_ITS ---
Exam(s) XR LINE PLACEMENT PICC/CVA EXAM: XR LINE PLACEMENT PICC/CVA CLINICAL HISTORY: line placement TECHNIQUE: 2D digital imaging was performed. COMPARISON: CR XR PORTABLE CHEST AP from 06/26/2023 FINDINGS: Exam is limited by under penetration at the lung bases and overlying monitoring leads. A PICC line has been inserted. The tip lies in the SVC. LUNGS: Small bilateral pleural effusions, right greater than left. No pneumothorax HEART: Enlarged. AORTA: Normal diameter. BONES: Unremarkable for age. Soft tissues: Unremarkable. IMPRESSION: Satisfactory placement of PICC line. DATA REPOSITORY: RADIATION DOSE DELIVERED:
[2023-06-26] MEDS: Heparin 5,000 UNITS/ML VIAL 5000 UNITS SC ×2 (18:34→23:32)
[2023-06-26] MEDS: Normal Saline Flush 10 ML SYR IVP ×2 (18:54→21:43)
[2023-06-26] MEDS: PIPERACILLIN/TAZO 2.25 GM in Normal Saline 50 ML IVPB ×2 (18:58→23:31)
--- NOTE | 2023-06-26 19:06 | ROE_ITS ---
Date of service: 06/26/23 Time of Service: 15:00 Operative Note Operative Note DATE OF PROCEDURE: 06/26/23 PRE-OP DIAGNOSIS: Critically ill patient, need for invasive monitoring, request for central line and arterial line placement POST-OP DIAGNOSIS: same PROCEDURE: 1. Right internal jugular nontunneled central venous catheter insertion with ultrasound guidance 2. Left radial arterial catheter insertion SURGEON: kAhil Michele Refer to Anesthesia Record Indications: Sepsis, hypotension, need for invasive monitoring, currently on vasoactive agent requiring continuous monitoring Procedure Description: Informed consent discussion was completed with the patient advising of the risk associate with central venous catheter insertion, including pneumothorax, possible requirement for thoracostomy tube insertion, or pleural catheter inser tion for reexpansion of the lung, life-threatening bleeding, need for blood transfusion, need for vascular surgery for repair of injured blood vessels. We discussed this risk is low however it is a real risk. The benefit of central venous catheter insertion allows for central venous administration of inotropic agents, and vasoactive agents in the acute setting. Need for arterial line to help titrate and appropriately administer dose of inotropic and vasoactive agents. Risk of thrombosis of the radial artery can result in ischemic changes of the hand, pain, need for thrombectomy, or other emergency procedures. We discussed these are low risks and the benefit of the procedures outweigh the risks. Central venous catheter insertion with ultrasound guidance: Initial attempt a left-sided subclavian central venous catheter was attempted, but unsuccessful. Decision to obtain left subclavian access was made due to the patient's overall obese habitus, a large and full neck, which could make it quite difficult to access the right internal jugular vein. Further the patient has a CPAP mask with straps that go around the temporal region above the ear, and the submandibular region and the lateral neck. Due to perceived issues with prolonged access, and potential difficulties with maintaining good positioning, the left subclavian was chosen as the ideal location. A bump was placed between the cervical spine, allowing for the shoulders to open up. The left anterior chest wall and the collarbone and the supraclavicular region to the neck in the midline of the chest was prepped with a ChloraPrep solution, 3 minutes were allowed to dry. This was draped in the usual sterile fashion with a full barrier drape, a face mask, and head covering, and full gown with sterile gloves were used. Sterile technique was followed. The skin and soft tissue was injected using 10 cc of 1% lidocaine without epinephrine to anesthetize the intended venous access location. The local anesthetic was administered down to the left angle of the collarbone, making contact with the periosteum, and infiltrating local anesthetic in this location. Next the 18-gauge beveled Seldinger needle was used for insertion through the skin, and advanced to make contact with the periosteum, the angle of the needle was pointed anteriorly to the sternal notch, with the plunger of the syringe posteriorly this was advanced to the usual location of the subclavian vein however attempts to cannulate the subclavian vein were unsuccessful. At this time a determination to proceed to the right internal jugular was made instead. The right neck was prepped and draped in usual sterile fashion preparing the skin with a ChloraPrep solution. 3 minutes were allowed to dry. Sterile barriers were put in place with a full barrier drape, full gown, sterile gloves, mask, head covering and face shield. A sterile ultrasound probe was used to cover the ultrasound and reduce contamination of the field. The ultrasound probe was used with ultrasound gel, to identify the internal jugular vein, and the common carotid artery over the top of the clavicle. Local anesthetic was injected in the skin and the soft tissue. Next the Seldinger 18-gauge needle was advanced into the jugular vein, aspiration was performed confirming placement in the vein, next the Seldinger wire was advanced through the hollow needle. The dilator sheath was advanced over the wire after the needle was removed, and a skin jairo was created with 11 blade scalpel. After the dilator was removed, the previously flushed triple-lumen catheter was advanced over the wire, identifying the wire, and once in appropriate position, the triple-lumen's were aspirated easily with return of blood, and flushed with sterile saline. The triple-lumen catheter was secured at the hub, a Biopatch was put in place, and a sterile bio Derm dressing was applied to the catheter insertion site. Estimated blood loss approximately 20 cc. There were no complications. A follow-up x-ray was obtained confirming the right internal jugular catheter was in appropriate location, there was no evidence of pneumothorax in the left or the right pulmonary bell. Left radial arterial line insertion with ultrasound guidance: The left radial artery was identified as a good location for arterial monitoring. Ultrasound was used to confirm a patent and pulsatile radial artery in the left wrist, as well as an ulnar artery in the left wrist. Brennan test was performed compressing the radial artery, for more than 30 seconds and confirming there is no change in perfusion in the left hand. I prepped the left wrist using a ChloraPrep solution, positioning the elbow, and the arm on the bedside table. 3 cc of 1% lidocaine without epinephrine was injected into the skin overlying the left radial artery. The drapes were put in place. A new sterile ultrasound probe cover was used, with ultrasound gel to access the left radial artery under direct visualization with pulsatile return of blood flow through the hollow needle, this was cannulated with a wire using Seldinger technique, the needle was removed and the angiocatheter was advanced easily over the wire. The patient tolerated the procedure well without any pain. The arterial catheter was attached to the arterial monitoring system, the pressure was zeroed out, there was an excellent waveform on the monitor.
[2023-06-26] MEDS: Normal Saline 1,000 ML 500 ML IV (20:15)
[2023-06-26] MEDS: methylPREDNISolone SUCC 125 MG VIAL 80 MG IVP (20:41)
[2023-06-26] MEDS: Acetaminophen 325 MG TAB PO (21:11)
[2023-06-26] MEDS: Insulin Aspart 300 UNITS/3 ML PEN SC (21:23)
[2023-06-26 21:43] LABS: BE -2 mmol/L (-2-3); HCO3 24 mmol/L (22-26); pCO2 50 mmHg (35-45); pH 7.29 (7.35-7.45); pO2 87 mmHg (80-105); sO2 97 % (95-98); tCO2 23 mmol/L (23-27)
[2023-06-26 21:45] LABS: BE (Venous) -2 mmol/L (-2-3); HCO3 (Venous) 25 mmol/L (23-28); O2 Sat (Venous) 90 %; TCO2 (Venous) 23 mmol/L (24-29); pCO2 (Venous) 53 mmHg (41-51); pH (Venous) 7.28 (7.31-7.41); pO2 (Venous) 56 mmHg
[2023-06-26 21:50] LABS: FIO2 55 %; Site Left Radial
[2023-06-26 22:16] LABS: Troponin I 62 ng/L (< or =60)
[2023-06-26] MEDS: Norepinephrine in D5W 8 MG/250 ML BAG 18.8 MG IV (23:54)
[2023-06-27] VITALS (52 sets, daily range): BP systolic 98–149; BP diastolic 55–75; PULSE 58–122; RESP 10–37; TEMP 36.3–36.9; O2SAT 91–98
[2023-06-27] MEDS: Normal Saline Flush 10 ML SYR IVP ×2 (01:41→11:52)
[2023-06-27] MEDS: Normal Saline 1,000 ML 125 ML IV ×2 (03:42→13:31)
[2023-06-27] MEDS: methylPREDNISolone SUCC 125 MG VIAL 80 MG IVP ×3 (03:46→20:17)
[2023-06-27] MEDS: PIPERACILLIN/TAZO 2.25 GM in Normal Saline 50 ML IVPB ×3 (05:34→17:10)
[2023-06-27 06:11] LABS: HCT 37.1 % (36.0-46.0); MCH 30.7 pg (27.0-33.0); MCHC 32.3 % (32.0-36.0); MCV 95 fL (80-95); MPV 9.3 fL (8.0-11.0); Platelet Count 230 10^3/uL (130-400); RBC 3.91 10^6/uL (3.93-5.22); RDW 14.6 % (11.7-14.6); RDW-SD 50.6 fL
[2023-06-27 06:32] LABS: ALT 27 U/L (14-59); AST 72 U/L (15-37); Albumin 1.9 g/dL (3.4-5.0); Alkaline Phosphatase 63 U/L (46-116); Anion Gap 11.5 mmol/L (3-11); BUN 62 mg/dL (7-18); Bilirubin, Total 0.8 mg/dL (0.2-1.0); CO2 23.5 mmol/L (21.0-32.0); Calcium 7.7 mg/dL (8.5-10.1); Chloride 98 mmol/L (98-107); Estimated GFR 10.76 (mL/min/1.73m2); Glucose 358 mg/dL (74-106); Sodium 133 mmol/L (136-145); Total Protein 6.2 g/dL (6.4-8.2)
[2023-06-27 06:34] LABS: CREATININE 4.2 mg/dL (0.55-1.02)
--- NOTE | 2023-06-27 08:58 | INITIAL_ITS ---
Date of service: 06/27/23 Time of Service: 08:58 Care Management Initial Assmt Initial Assessment REASON FOR HOSPITALIZATION:: Pneumonia with sepsis PREVIOUS FUNCTIONAL STATUS/SOCIAL/FAMILY SUPPORTS:: Shira resides alone in a mobile home in [place], [place] with her dog. She has one child, a daughter named Effie, who resides in [place] . She also has a grandson as well as a healthy network of friends who are very supportive. 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 She is independent with all ADLs in the community and continues to drive. Shira utilizes a cane for ambulatory assistance as well as home O2 at 2L/min. CURRENT FUNCTIONAL STATUS:: Shira was lying in bed wearing an OxyMask at 3L/min when CM met with her. She is still tachypneic with respiratory rate in the 20s and 30s and can only talk in short phrases. Shira was also hypotensive on admission but her blood pressure has stabilized on a norepinephrine drip which will be weaned as appropriate. Shira also has chronic kidney disease with a rising creatinine and BUN. Her baseline creatinine is about 2.3 and it is currently 4.2. Her urine output is being closely monitored as she has required dialysis in the past when acutely ill. ADVANCE DIRECTIVES:: none on file Has patient been provided with info about the portal/API?: Yes Did the patient sign up for the portal?: Yes CODE STATUS:: Full Code INSURANCE COVERAGE / FINANCIAL ISSUES:: [facility] Medicare Replacement CURRENT HOME/COMMUNITY SERVICES/EQUIPMENT:: Home O2, ramp, glucometer PRIMARY CARE PHYSICIAN:: Liliam Noble POTENTIAL DISCHARGE NEEDS:: follow up with community providers PATIENT/FAMILY EDUCATION NEEDS:: Review discharge instructions, activity, limitations, follow up plan, discuss Ask Me Three TRANSPORTATION:: via private vehicle vs RCT PLAN:: Anticipate Shira will be discharged home with no new services when medically stable. She will follow up with her community providers and plan of care and transport with family. CM will continue to support Shira and her discharge needs. PFSH All Active Problems (Updated 06/26/23 @ 13:28 by PEYMAN MADRIGAL) Diabetes (Chronic) Acute on chronic respiratory failure with hypoxia (Acute) Acute on chronic kidney failure (Acute) CAP (community acquired pneumonia) (Acute) Pneumonia (Acute) Acute on chronic renal insufficiency (Acute) Sepsis (Acute) Aortic stenosis (Chronic) Obesity (Chronic) HLD (hyperlipidemia) (Acute) Hypomagnesemia (Acute) Acute kidney injury superimposed on chronic kidney disease (Acute) Acute on chronic respiratory failure with hypoxia (Acute) Tick bite (Acute) Parainfluenza (Acute) Type II diabetes mellitus (Acute) COPD exacerbation (Acute) Acute hyperkalemia (Acute) Pneumonia (Acute) Acute exacerbation of chronic obstructive pulmonary disease (Acute) Hypoxia (Acute) Abnormal ECG (Acute) Weakness (Acute) Diarrhea (Acute) Congestive heart failure (Chronic) Shortness of breath (Acute) Medication monitoring encounter (Acute) Tubular adenoma of colon (Acute) Diverticulosis (Chronic) Colon polyps (Chronic) Anemia (Chronic) Pleural effusion (Acute) Tobacco abuse (Chronic) Depression (Chronic) Hypertension (Chronic) Dental abscess (Acute) COPD (chronic obstructive pulmonary disease) (Chronic) Personal history of nicotine dependence (Acute) Right ankle injury (Acute) Anemia (Chronic) Medical History Afib Paroxysmal atrial flutter On supplemental oxygen therapy on O2 of night. Is able to lay flat CKD (chronic kidney disease) stage 3, GFR 30-59 ml/min Pt. denies Diabetes mellitus 10/21/21 [facility] visit not well controlled, A1C 8.2 Discharge planning issues Diabetes mellitus Surgical History History of colonoscopy (~12/2021) Hx of hernia repair Social History Smoking/Tobacco Use Status: Former Tobacco Use Quit Date: 03/23/18 Tobacco: How many years used: 65 Smoking risk assessment performed?: Yes Alcohol Intake: current Alcohol Intake frequency: holidays/special occasions only Drug use: Never Substance use type: does not use Housing: house Do you feel safe at home: Yes Do you feel safe in your relationship?: Yes SDOH(Care Management) Screening Will the Patient Participate in the Screening?: Unable to obtain
[2023-06-27] MEDS: Heparin 5,000 UNITS/ML VIAL 5000 UNITS SC ×2 (09:22→16:17)
[2023-06-27] MEDS: Insulin Aspart 300 UNITS/3 ML PEN SC ×4 (09:25→22:30)
[2023-06-27] MEDS: Normal Saline 1,000 ML 999 ML IV (12:26)
--- NOTE | 2023-06-27 13:25 | PGE_ITS ---
Date of Service Date of service: 06/27/23 Time of Service: 13:26 Assessment and Plan Assessment and plan (1) Septic shock: Status: Resolved Assessment and plan: - Patient met criteria for septic shock with respiratory rate of 44, pulse of 95, white blood cell count of 27, chest x-ray highly suspicious for pneumonia, RHONDA on CKD with creatinine increasing from 1.7-3.8, lactic acid of 7.1, and ongoing hypotension with systolic less than 80 despite adequate fluid resuscitation requiring IV Levophed -Patient was started on Zosyn in the emergency department and will continue -Patient's blood pressure now appears to have stabilized with maps greater than 65 while on 5 mics of Levophed, will wean as tolerated -Follow-up blood and sputum culture results (2) CAP (community acquired pneumonia): Status: Acute Assessment and plan: - As noted above (3) Acute on chronic kidney failure: Status: Acute Assessment and plan: - As noted above -UOP has been about 290ml total since admission despite total of about 5L IVF -will monitor I/O's and discuss with [facility] Nephrology tomorrow if UOP does not improve (4) Acute on chronic respiratory failure with hypoxia: Status: Acute Assessment and plan: - Due to septic shock and community-acquired pneumonia as noted above as well as underlying COPD without acute exacerbation -Currently on BiPAP with significant improvement in respiratory rate and oxygen requirements -Wean as tolerated (5) COPD (chronic obstructive pulmonary disease): Status: Chronic Assessment and plan: - Without acute exacerbation -Will hold off on giving steroids at this time -Will continue home inhaler regimen Qualifiers: COPD type: emphysema Emphysema type: centrilobular Qualified Code(s): J43.2 - Centrilobular emphysema (6) Hypertension: Status: Chronic Assessment and plan: - Hold home antihypertensives while patient is hypotensive and on IV Levophed Qualifiers: Hypertension type: unspecified Qualified Code(s): I10 - Essential (primary) hypertension (7) Depression: Status: Chronic Assessment and plan: - Continue home SSRI (8) Diabetes: Status: Chronic Assessment and plan: - Hold home metformin and sitagliptin to 2 RHONDA in the setting of infection -Sliding scale insulin, carb consistent diet Subjective Subjective Interval history since last seen: Patient states that she is feeling a little bit better today, but her and her daughter are concerned about her low urine output, as the patient does have a history of requiring dialysis during similar hospitalizations in the past. It was explained to them that we are monitoring her urine output and fluid intake will consult nephrology when and if needed. Exam Narrative Exam Narrative: Morbidly obese chronically ill-appearing female laying in bed with BiPAP mask on and mild respiratory distress, heart regular rate rhythm, lungs diminished in bilateral bases with coarse breath sounds heard over the anterior portion of the right middle lobe, abdomen soft, nontender, nondistended Objective Last Vital Signs Temp 97.7 F 06/27/23 09:42 Pulse 85 06/27/23 09:42 Resp 23 06/27/23 12:00 BP 131/55 L 06/27/23 09:42 Pulse Ox 94 06/27/23 12:00 Laboratory Results - last 24 hr 06/26/23 06/26/23 06/27/23 21:37 21:38 05:40 WBC 19.30 H RBC 3.91 L Hgb 12.0 Hct 37.1 MCV 95 MCH 30.7 MCHC 32.3 RDW 14.6 Plt Count 230 MPV 9.3 ABG Sample Site Left Radial ABG pH 7.29 L ABG pCO2 50 H ABG pO2 87 ABG HCO3 24 ABG Total CO2 23 ABG O2 Saturation 97 ABG Base Excess -2 VBG pH 7.28 L VBG pCO2 53 H VBG pO2 56 VBG HCO3 25 VBG Total CO2 23 L VBG O2 Saturation 90 VBG Base Excess -2 FiO2 55 Sodium 133 L Potassium 5.0 Chloride 98 Carbon Dioxide 23.5 Anion Gap 11.5 H BUN 62 H Creatinine 4.2 H* Est GFR (CKD-EPI 2020) 10.76 Glucose 358 H Calcium 7.7 L Total Bilirubin 0.8 AST 72 H ALT 27 Alkaline Phosphatase 63 Troponin I 62 H* Total Protein 6.2 L Albumin 1.9 L Time Spent with Patient Time Spent with Patient: >50 minutes Time was spent: preparing to see the patient(eg.review tests), obtaining and/or reviewing separately otained hiistory, ordering medications,tests, procedures, referring, communicating with other health rehab care assistant, indepentently interpreting results, counseling the patient and care coordination
[2023-06-27] MEDS: Furosemide 20 MG/2 ML VIAL IVP (17:30)
[2023-06-27] MEDS: Lactated Ringers 1,000 ML 1000 ML IV (23:00)
[2023-06-28] VITALS (34 sets, daily range): BP systolic 121; BP diastolic 96; PULSE 78–132; RESP 5–36; TEMP 36.1–36.5; O2SAT 4–96
[2023-06-28] MEDS: Heparin 5,000 UNITS/ML VIAL 5000 UNITS SC ×3 (00:10→17:03)
[2023-06-28] MEDS: PIPERACILLIN/TAZO 2.25 GM in Normal Saline 50 ML IVPB ×4 (00:10→17:03)
[2023-06-28] MEDS: MORPHine 2 MG/ML SYR 1 MG IVP ×3 (02:41→15:33)
[2023-06-28] MEDS: methylPREDNISolone SUCC 125 MG VIAL 80 MG IVP ×3 (04:12→20:00)
[2023-06-28 06:47] LABS: HCT 33.6 % (36.0-46.0); HGB 10.6 g/dL (11.2-15.7); MCH 29.9 pg (27.0-33.0); MCHC 31.5 % (32.0-36.0); MCV 95 fL (80-95); MPV 9.3 fL (8.0-11.0); Platelet Count 168 10^3/uL (130-400); RBC 3.54 10^6/uL (3.93-5.22); RDW 14.1 % (11.7-14.6); RDW-SD 49.9 fL; WBC 13.43 10^3/uL (4.4-10.8)
[2023-06-28 07:03] LABS: Anion Gap 11.2 mmol/L (3-11); BUN 79 mg/dL (7-18); CO2 22.8 mmol/L (21.0-32.0); Calcium 7.8 mg/dL (8.5-10.1); Chloride 100 mmol/L (98-107); Estimated GFR 8.94 (mL/min/1.73m2); Glucose 213 mg/dL (74-106); Potassium 4.7 mmol/L (3.5-5.1); Sodium 134 mmol/L (136-145)
[2023-06-28 07:09] LABS: CREATININE 4.9 mg/dL (0.55-1.02)
--- NOTE | 2023-06-28 08:48 | W.PM.PROGNOT ---
Date of Service Date of service: 06/28/23 Time of Service: 08:48 Assessment and Plan Assessment and plan (1) Septic shock: Status: Resolved Assessment and plan: - Patient met criteria for septic shock with respiratory rate of 44, pulse of 95, white blood cell count of 27, chest x-ray highly suspicious for pneumonia, RHONDA on CKD with creatinine increasing from 1.7-3.8, lactic acid of 7.1, and ongoing hypotension with systolic less than 80 despite adequate fluid resuscitation requiring IV Levophed -Patient was started on Zosyn in the emergency department and will continue -Patient's blood pressure now appears to have stabilized with maps greater than 65 while on 5 mics of Levophed, will wean as tolerated -Follow-up blood and sputum culture results (2) CAP (community acquired pneumonia): Status: Acute Assessment and plan: - As noted above (3) Acute on chronic kidney failure: Status: Acute Assessment and plan: - As noted above -UOP has been about 290ml total since admission despite total of about 5L IVF -Electrolytes limb remains stable, patient without obvious signs of fluid overload or pulmonary edema -425 mg of IV Lasix and attempt to increase urine output -Will follow-up with BMP -Depending on response to Lasix, will either continue to diurese or potentially discuss with [facility] [place] (4) Acute on chronic respiratory failure with hypoxia: Status: Acute Assessment and plan: - Due to septic shock and community-acquired pneumonia as noted above as well as underlying COPD without acute exacerbation -Currently on BiPAP with significant improvement in respiratory rate and oxygen requirements -Wean as tolerated (5) COPD (chronic obstructive pulmonary disease): Status: Chronic Assessment and plan: - Without acute exacerbation -Will hold off on giving steroids at this time -Will continue home inhaler regimen Qualifiers: COPD type: emphysema Emphysema type: centrilobular Qualified Code(s): J43.2 - Centrilobular emphysema (6) Hypertension: Status: Chronic Assessment and plan: - Held antihypertensives as patient was on Levophed -We have sent that has since been discontinued -However, will continue to hold antihypertensives as patient is being aggressively diuresed as noted above Qualifiers: Hypertension type: unspecified Qualified Code(s): I10 - Essential (primary) hypertension (7) Depression: Status: Chronic Assessment and plan: - Continue home SSRI (8) Diabetes: Status: Chronic Assessment and plan: - Hold home metformin and sitagliptin to 2 RHONDA in the setting of infection -Sliding scale insulin, carb consistent diet Subjective Subjective Interval history since last seen: Patient states that she feels well today. She understands the plan to diurese her in an attempt to increase her urine output. Exam Narrative Exam Narrative: Morbidly obese chronically ill-appearing female laying in bed with BiPAP mask on and mild respiratory distress, heart regular rate rhythm, lungs diminished in bilateral bases with coarse breath sounds heard over the anterior portion of the right middle lobe, abdomen soft, nontender, nondistended Objective Last Vital Signs Temp 97.0 F L 06/28/23 07:59 Pulse 81 06/28/23 07:59 Resp 28 H 06/28/23 08:01 BP 121/96 H 06/28/23 07:59 Pulse Ox 96 06/28/23 08:01 Laboratory Results - last 24 hr 06/28/23 06:00 WBC 13.43 H RBC 3.54 L Hgb 10.6 L Hct 33.6 L MCV 95 MCH 29.9 MCHC 31.5 L RDW 14.1 Plt Count 168 MPV 9.3 Sodium 134 L Potassium 4.7 Chloride 100 Carbon Dioxide 22.8 Anion Gap 11.2 H BUN 79 H Creatinine 4.9 H* Est GFR (CKD-EPI 2020) 8.94 Glucose 213 H Calcium 7.8 L Time Spent with Patient Time Spent with Patient: >50 minutes Time was spent: preparing to see the patient(eg.review tests), obtaining and/or reviewing separately otained hiistory, ordering medications,tests, procedures, referring, communicating with other health coronary care unit nurse, indepentently interpreting results, counseling the patient and care coordination
[2023-06-28] MEDS: Insulin Aspart 300 UNITS/3 ML PEN SC ×4 (09:12→22:08)
[2023-06-28] MEDS: Furosemide 100 MG/10 ML VIAL 120 MG IVP (09:13)
[2023-06-28 12:33] LABS: Anion Gap 12.7 mmol/L (3-11); CO2 22.3 mmol/L (21.0-32.0); Chloride 98 mmol/L (98-107); Estimated GFR 8.14 (mL/min/1.73m2); Glucose 221 mg/dL (74-106); Potassium 4.9 mmol/L (3.5-5.1); Sodium 133 mmol/L (136-145)
[2023-06-28 12:38] LABS: BUN 87 mg/dL (7-18); CREATININE 5.3 mg/dL (0.55-1.02)
[2023-06-28] MEDS: Normal Saline Flush 10 ML SYR IVP ×2 (13:48→17:03)
[2023-06-28] MEDS: Nystatin POWDER 60 GM JAR TP ×2 (13:49→20:01)
[2023-06-28] MEDS: Acetaminophen 325 MG TAB PO (15:34)
[2023-06-29] VITALS (20 sets, daily range): BP systolic 136–165; BP diastolic 90–121; PULSE 68–150; RESP 5–30; TEMP 36–37.1; O2SAT 92–97
[2023-06-29] MEDS: MORPHine 2 MG/ML SYR 1 MG IVP ×4 (00:15→23:15)
[2023-06-29] MEDS: Heparin 5,000 UNITS/ML VIAL 5000 UNITS SC ×4 (00:25→23:16)
[2023-06-29] MEDS: PIPERACILLIN/TAZO 2.25 GM in Normal Saline 50 ML IVPB ×5 (00:25→23:17)
[2023-06-29] MEDS: methylPREDNISolone SUCC 125 MG VIAL 80 MG IVP ×2 (04:12→13:20)
[2023-06-29 06:48] LABS: HCT 37.1 % (36.0-46.0); HGB 11.8 g/dL (11.2-15.7); MCH 30.1 pg (27.0-33.0); MCHC 31.8 % (32.0-36.0); MCV 95 fL (80-95); MPV 9.2 fL (8.0-11.0); Platelet Count 170 10^3/uL (130-400); RBC 3.92 10^6/uL (3.93-5.22); RDW-SD 48.7 fL; WBC 11.79 10^3/uL (4.4-10.8)
[2023-06-29 07:01] LABS: Anion Gap 15.9 mmol/L (3-11); CO2 19.1 mmol/L (21.0-32.0); Chloride 100 mmol/L (98-107); Estimated GFR 7.16 (mL/min/1.73m2); Glucose 217 mg/dL (74-106); Potassium 5.4 mmol/L (3.5-5.1); Sodium 135 mmol/L (136-145)
[2023-06-29 07:10] LABS: BUN 97 mg/dL (7-18); CREATININE 5.9 mg/dL (0.55-1.02)
--- NOTE | 2023-06-29 09:10 | CMPROGNOTE_ITS ---
Date of service: 06/29/23 Time of Service: 09:10 Care Management Progress Note Progress Note Text Progress Note Text: S/O: Shira is awake in bed and wearing her Bi-Pap mask when CM met with her. She would like to sit up in a chair, CM notified nursing. She is being closely monitored and treated in the ICU. Per provider, pt requires IV abx, steroids and pain management. CM will continue to support patient and her discharge planning needs. A: 73 year old female admitted to [facility] on 06/26/23 with Septic shock, CAP P: Anticipate Shira will be discharged home with no new services when medically stable. She will follow up with her community providers and plan of care and transport with family. CM will continue to support Shira and her discharge needs. SDOH(Care Management) Screening Will the Patient Participate in the Screening?: Unable to obtain
[2023-06-29] MEDS: Insulin Aspart 300 UNITS/3 ML PEN SC ×4 (09:14→23:13)
[2023-06-29] MEDS: Nystatin POWDER 60 GM JAR TP ×3 (11:36→23:29)
--- NOTE | 2023-06-29 14:06 | PHA.REVIEW2 ---
Pharmacy Admission Review Admission Clinical Review Admission Pharmacy Review: Acute on chronic respiratory failure with hypoxia (Acute) Acute on chronic kidney failure (Acute) CAP (community acquired pneumonia) (Acute) codeine Allergy (Mild, Verified 02/17/23 13:16) fluticasone [From Advair Diskus] Allergy (Mild, Verified 02/17/23 13:16) salmeterol [From Advair Diskus] Allergy (Mild, Verified 02/17/23 13:16) Sulfa (Sulfonamide Antibiotics) Allergy (Mild, Verified 02/17/23 13:16) Unknown sulfasalazine Adverse Reaction (Intermediate, Verified 02/17/23 13:16) Resuscitation Status Full Code Height 5 ft 4 in Weight 131.4 kg Pharmacy Admission Review Renal Dosing Renal Dosing: BUN 97 mg/dL (7-18) H* 06/29/23 05:45 Creatinine 5.9 mg/dL (0.55-1.02) H* 06/29/23 05:45 Medications needing adjustments: Intervened (CrCl 11.73 mL/min, BN increased from 87 and SCr increased from 5.3) List of meds needing interventions: Reached out to provider regarding order for PRN morphine (is not recommended when CrCl < 15), have not heard back yet. All other medications are currently okay Anticoagulation Anticoagulation: Hgb 11.8 g/dL (11.2-15.7) 06/29/23 05:45 Hct 37.1 % (36.0-46.0) 06/29/23 05:45 Plt Count 170 10^3/uL (130-400) 06/29/23 05:45 Creatinine 5.9 mg/dL (0.55-1.02) H* 06/29/23 05:45 DVT Prophylaxis: Reviewed Medications: Heparin (q8h) Opiate Usage Evaluate Pain Scale/Pains Meds: Reviewed (PRN morphine) Scheduled Bowel Reg ordered if on Opiates?: No (PRN Miralax/docusate) Relevant Labs Relevant Labs: Sodium 135 mmol/L (136-145) L 06/29/23 05:45 Potassium 5.4 mmol/L (3.5-5.1) H 06/29/23 05:45 Chloride 100 mmol/L (98-107) 06/29/23 05:45 Electrolytes, C-Reactive P, ESR: Reviewed (Na 135, K 5.4) DM Control DM Control: Glucose 217 mg/dL (74-106) H 06/29/23 05:45 Finger Stick Blood Glucose 302 1306 Finger Stick Blood Glucose 302 1305 Finger Stick Blood Glucose 302 1305 Finger Stick Blood Glucose 217 0914 Finger Stick Blood Glucose 217 0858 Finger Stick Blood Glucose 217 0858 DM Control: Reviewed Insulin Dosing, Diabetic Medication: Home meds of glipizide and Januvia are on hold. Has order for SS insulin Cardiac Review Cardiac Review: Troponin I 62 ng/L (< or =60) H* 06/26/23 21:38 BP, HR, EF%: Reviewed (HR 94, RR 25, no charted BP at this time) QTc Review QTc: Reviewed (499 from 06/26/23) IV to PO Switch IV Medications: Reviewed (Furosemide, methylprednisolone, morphine, Levophed and Zosyn ) Home Meds Home Med List reviewed: Intervened Relevent Home Meds Not ordered & why?: Amiodarone, vitamin D3, B12, cyclobenzaprine, escitalopram, Trelegy, gabapentin, glipizide (on hold per H+P), metoprolol (on hold per H+P), rosuvastatin, Januvia (on hold per H+P) and spironolactone (on hold per H+P) Reached out to provider regarding amiodarone, cyclobenzaprine, escitalopram, Trelegy, gabapentin and rosuvastatin. Current Meds Current Medication Order Review: Intervened Comments: Per progress note from 06/28/23, stated they will hold off on steroids' for now. But there is an active order for scheduled methylprednisolone. Reached out to provider to make sure they are aware. Discontinue Levophed order? No longer receiving Pharmacy Antibiotic Review Pharmacy Antibiotic Activity: C/S review and Reviewed, no change Comments: Patient continues on Zosyn day 3. Urine and blood cultures showing no growth. WBC decreased from 13.43 to 11.79.
[2023-06-29] MEDS: Lactated Ringers 500 ML IV (15:30)
--- NOTE | 2023-06-29 16:15 | DI.RAD_ITS ---
Exam(s) XR PORTABLE CHEST AP EXAM: XR PORTABLE CHEST AP CLINICAL HISTORY: dyspnea. TECHNIQUE: 2D digital imaging was performed. COMPARISON: No exams were available for comparison FINDINGS: Single AP portable view. Distal tip of the right central line is at the SVC-RA junction. Cardiomegaly again noted. Mediastinum unchanged. Appearance of the lung bell is unchanged from 3 days ago. Bilateral pleural effusions right larger than left again noted, similar in size. Consider element of CHF. IMPRESSION: Findings similar to 06/26/2023. DATA REPOSITORY: RADIATION DOSE DELIVERED:
--- NOTE | 2023-06-29 16:31 | W.POCUS ---
Pocus Exam Limited Thoracic Lung Exam DATE OF EXAM: 06/29/23 TIME OF EXAM: 16:36 PROVIDER THAT PERFORMED THE STUDY: Luciano Coleman IS THIS A REPEAT EXAM DURING THIS ENCOUNTER: No REASON FOR EXAM: Hypoxia and Shortness ofBreath VISUALIZED STRUCTURES: right anterior, left anterior, right lateral, left lateral, right subcostal and left subcostal PERTINENT FINDINGS/IMPRESSION: B-lines/left side thoracis location: lateral and posterior and B-lines/right side thoracis location: lateral and posterior; no pneumonia noted INCIDENTAL FINDINGS: bilateral lower lung field B lines in the posterio-inferolateral lung zones in the mid axillary line, no noticeable pleural effusions, no consolidation, however pleural line has some irregular appearance; no B lines seen in upper lung zones anteriorly, could not position patient to scan the posterior thorax other than from mid and posterior axillary line Exam complete
--- NOTE | 2023-06-29 16:34 | W.POCUS ---
Pocus Exam Limited Cardiac Exam DATE OF EXAM: 06/29/23 TIME OF EXAM: 15:49 PROVIDER THAT PERFORMED THE STUDY: Luciano Coleman IS THIS A REPEAT EXAM DURING THIS ENCOUNTER: no REASON FOR EXAM: Other (evaluation of LV filling pressures) indication: RHONDA VISUALIZED STRUCTURES: four chambers, Interventricular septum and IVC VIEW OBTAINED: Apical 4-Chamber and Subxiphoid PERTINENT FINDINGS/IMPRESSION: Pericardial effusion (trivial) and Plethoric IVC; no IVC inspiratory collapsability, No LV dysfunction, No RV dilation and No RV dysfunction INCIDENTAL FINDINGS: Plethoric IVC 2.24 cm w/ <50% collapsability, however, not accurate for predicting RAP as patient was on BIPAP at the time. Hepatic vein doppler suggests congestion w/ diastolic inflow > systolic inflow; less than 50% pulsatility of portal vein; diastolic MV filling pressures appear to be increased w/ E wave of 114 cm/s, lateral E/e' 10.9 cm/s and septal E/e' 18 (avg E/e' 14.5), this suggest that she has increased LV filling pressures and hepatic congestion. Exam complete
--- NOTE | 2023-06-29 16:57 | W.PM.PROGNOT ---
Date of Service Date of service: 06/29/23 Time of Service: 15:00 Assessment and Plan Assessment and plan (1) Septic shock: Status: Resolved Assessment and plan: - Patient met criteria for septic shock with respiratory rate of 44, pulse of 95, white blood cell count of 27, chest x-ray highly suspicious for pneumonia, RHONDA on CKD with creatinine increasing from 1.7-3.8, lactic acid of 7.1, and ongoing hypotension with systolic less than 80 despite adequate fluid resuscitation requiring IV Levophed Patient has been off levophed since 06/26 however a line remains in place; I have asked nursing to remove her a line Source of her sepsis is presumabley her pneumonia; she is on Zosyn but not on coverage for atypicals; I have added doxycycline, she was put on solumedrol from admission and remains on this. I will change her to daily prednisone starting tomorrow (06/29) She still needs ICU care for close monitoring of her oxygenation and d/t her worsening kidney function. She was trialed on lasix 120 mg IVP yesterday morning and had UO of 150 mL yesterday, lasix drip was ordered but never started yesterday. I discussed this w/ nursing today. After thorough exam and review of her I/O (net cumulative balance >8 liters), and after cardiac and lung POCUS this afternoon, I think she needs continued diuretics; therefore will give diuril and lasix IVP and begin lasix drip; she has high LV filling pressures, hepatic congestion Critical care time spent interviewing and examining the patient, reviewing studies, discussing case with patient's nurse and consulting physicians was 60 minutes (2) CAP (community acquired pneumonia): Status: Acute Assessment and plan: - As noted above Qualifiers: Laterality: unspecified laterality Qualified Code(s): J18.9 - Pneumonia, unspecified organism (3) Acute on chronic kidney failure: Status: Acute Assessment and plan: likely ATN from her hypotension from her sepsis; as she now appears to be hypervolemic, I have added diuretics including diuril and iv lasix Qualifiers: Acute renal failure type: with acute tubular necrosis Chronic kidney disease stage: unspecified stage Qualified Code(s): N17.0 - Acute kidney failure with tubular necrosis; N18.9 - Chronic kidney disease, unspecified (4) Acute on chronic respiratory failure with hypoxia: Status: Acute Assessment and plan: - Due to septic shock and community-acquired pneumonia as noted above as well as underlying COPD without acute exacerbation -Currently on BiPAP with significant improvement in respiratory rate and oxygen requirements -Wean as tolerated (5) COPD (chronic obstructive pulmonary disease): Status: Chronic Assessment and plan: continue bronchodilators; her home regimen of Trelegy was never reordered. I have rectified this. continue w/ duoneb but can change to prn Qualifiers: COPD type: emphysema Emphysema type: centrilobular Qualified Code(s): J43.2 - Centrilobular emphysema (6) Hypertension: Status: Chronic Assessment and plan: -antihyperensives being held in light of her septic shock and now needing diuretics. Qualifiers: Hypertension type: unspecified Qualified Code(s): I10 - Essential (primary) hypertension (7) Depression: Status: Chronic Assessment and plan: - Continue home SSRI (8) Diabetes: Status: Chronic Assessment and plan: - Hold home metformin and sitagliptin to 2 RHONDA in the setting of infection -Sliding scale insulin, carb consistent diet Subjective Subjective Interval history since last seen: Patient remains on BIPAP, currently at 16/8, 28% FIO2, SPO2 running 94%. She has had worsneing renal function. She did get bolus of lasix 120 mg IVP yesterday but lasix drip was never hung yesterday. UO yesterday was 150 mL. She is dyspneic w/ any kind of effort, no pain. Cough minimal occasional productive of clear spuutm. Exam Narrative Exam Narrative: Morbidly obese female, alert/ oriented to person/place/circumstances Lungs: some end expiratory wheezing, some bibasilar rales; no rhonchi Heart: irregularly irregular, (rhythm is afib, controlled rate in the 90's), I did not hear murmur Abdomen: obese, soft, nontender Legs: obese, but no real pitting edema Objective Last Vital Signs Temp 37.1 C 06/29/23 08:00 Pulse 94 H 06/29/23 05:58 Resp 30 H 06/29/23 14:00 BP 121/96 H 06/28/23 07:59 Pulse Ox 97 06/29/23 14:00 Laboratory Results - last 24 hr 06/29/23 05:45 WBC 11.79 H RBC 3.92 L Hgb 11.8 Hct 37.1 MCV 95 MCH 30.1 MCHC 31.8 L RDW 14.0 Plt Count 170 MPV 9.2 Sodium 135 L Potassium 5.4 H Chloride 100 Carbon Dioxide 19.1 L Anion Gap 15.9 H BUN 97 H* Creatinine 5.9 H* Est GFR (CKD-EPI 2020) 7.16 Glucose 217 H Calcium 8.0 L Time Spent with Patient Time Spent with Patient: >50 minutes Time was spent: preparing to see the patient(eg.review tests), ordering medications,tests, procedures, referring, communicating with other health health care facilities inspector, indepentently interpreting results, counseling the patient and care coordination
[2023-06-29] MEDS: Amiodarone 200 MG TAB PO (17:31)
[2023-06-29 19:11] LABS: BE (Venous) -9 mmol/L (-2-3); HCO3 (Venous) 19 mmol/L (23-28); O2 Sat (Venous) 78 %; TCO2 (Venous) 19 mmol/L (24-29); pCO2 (Venous) 51 mmHg (41-51); pO2 (Venous) 45 mmHg
[2023-06-29 19:13] LABS: pH (Venous) 7.19 (7.31-7.41)
[2023-06-29 19:14] LABS: Lactate 0.9 mmol/L (0.6-1.4)
[2023-06-29 19:28] LABS: Anion Gap 14.9 mmol/L (3-11); CO2 21.1 mmol/L (21.0-32.0); Calcium 8.5 mg/dL (8.5-10.1); Chloride 95 mmol/L (98-107); Estimated GFR 6.26 (mL/min/1.73m2); Glucose 321 mg/dL (74-106); Potassium 5.8 mmol/L (3.5-5.1); Sodium 131 mmol/L (136-145)
[2023-06-29 19:32] LABS: BUN 113 mg/dL (7-18)
[2023-06-29 19:33] LABS: CREATININE 6.6 mg/dL (0.55-1.02)
[2023-06-29 19:46] LABS: Bilirubin Negative (Negative); Blood Moderate (Negative); Clarity Clear (Clear); Glucose 250 mg/dL (Negative); Ketones Negative (Negative); Leukocyte Esterase Negative (Negative); Nitrite Negative (Negative); Specific Gravity 1.015 (1.005-1.025); Urobilinogen 0.2 mg/dL (Up to 0.2)
[2023-06-29 19:56] LABS: Bacteria Rare HPF (Negative); C & S Indicated? No; Casts 0-2 Fine Granular LPF (Negative); Crystals Negative HPF (Negative); Epithelial Cells Rare HPF (Negative); Mucus Negative (Negative); Other Cells Few Transitional (Negative); WBC Negative HPF (0-5)
[2023-06-29] MEDS: Pantoprazole 40 MG TABCR PO (20:14)
[2023-06-29] MEDS: DOXYCYCLINE 100 MG in Normal Saline 100 ML IVPB (20:14)
[2023-06-29] MEDS: Gabapentin 100 MG CAP PO (20:14)
[2023-06-29] MEDS: Normal Saline Flush 10 ML SYR IVP ×2 (20:14→23:28)
[2023-06-29] MEDS: Budesonide/Formoterol 80/4.5 6.9 GM 60 PUFF INH IH (20:43)
[2023-06-29 23:16] LABS: BE (Venous) -9 mmol/L (-2-3); HCO3 (Venous) 19 mmol/L (23-28); O2 Sat (Venous) 85 %; TCO2 (Venous) 18 mmol/L (24-29); pCO2 (Venous) 48 mmHg (41-51); pH (Venous) 7.21 (7.31-7.41); pO2 (Venous) 52 mmHg
[2023-06-29 23:37] LABS: Uric Acid 9.8 mg/dL (2.6-6.0)
[2023-06-30] VITALS (63 sets, daily range): BP systolic 96–161; BP diastolic 52–118; PULSE 60–90; RESP 5–30; TEMP 36.2; O2SAT 85–97
--- NOTE | 2023-06-30 | DI.US_ITS ---
Exam(s) US RENAL EXAM: US RENAL CLINICAL HISTORY: acute on chronic renal failure. TECHNIQUE: Shepherd scale, color and spectral Doppler were used. COMPARISON: CT CT ABDOMEN PELVIS WO from 12/27/2020 FINDINGS: Exam is limited by patient body habitus. Renal size in cm: Right: 9.3 x 4.4 x 4.4 left: 10.4 x 4.8 x 5.6 Echogenicity: Normal Hydronephrosis: No Cyst or mass: 2 small cysts noted upper and mid pole right kidney. Nephrolithiasis: No Bladder:Normal. Prevoid vol:135 cc Postvoid vol:0 cc IMPRESSION: Small right renal cysts. No evidence of calculi or hydronephrosis. DATA REPOSITORY:
[2023-06-30] MEDS: Normal Saline Flush 10 ML SYR IVP ×4 (02:58→08:35)
[2023-06-30 03:02] LABS: BE (Venous) -8 mmol/L (-2-3); HCO3 (Venous) 20 mmol/L (23-28); O2 Sat (Venous) 82 %; TCO2 (Venous) 19 mmol/L (24-29); pCO2 (Venous) 47 mmHg (41-51); pH (Venous) 7.23 (7.31-7.41); pO2 (Venous) 46 mmHg
[2023-06-30] MEDS: MORPHine 2 MG/ML SYR 1 MG IVP (03:22)
[2023-06-30] MEDS: PIPERACILLIN/TAZO 2.25 GM in Normal Saline 50 ML IVPB ×3 (05:08→18:14)
[2023-06-30 05:20] LABS: Abs Immature Grans 0.24 10^3/uL (0.0-0.06); Absolute Basophil Count 0.03 10^3/uL (0.0-0.2); Absolute Lymphocyte Count 0.25 10^3/uL (1.2-3.4); Absolute Monocyte Count 0.54 10^3/uL (0.1-0.8); Absolute Neutrophil Count 9.35 10^3/uL (1.2-6.7); BE (Venous) -9 mmol/L (-2-3); Basophils % 0.3; HCO3 (Venous) 19 mmol/L (23-28); HCT 34.2 % (36.0-46.0); HGB 10.9 g/dL (11.2-15.7); Immature Grans % 2.3; Lymphocytes % 2.4; MCH 30.2 pg (27.0-33.0); MCHC 31.9 % (32.0-36.0); MCV 95 fL (80-95); MPV 9.2 fL (8.0-11.0); Monocytes % 5.2; Neutrophils % 89.8; O2 Sat (Venous) 93 %; Platelet Count 161 10^3/uL (130-400); RBC 3.61 10^6/uL (3.93-5.22); RDW 13.7 % (11.7-14.6); TCO2 (Venous) 18 mmol/L (24-29); WBC 10.41 10^3/uL (4.4-10.8); pCO2 (Venous) 49 mmHg (41-51); pO2 (Venous) 69 mmHg
[2023-06-30 05:35] LABS: Anion Gap 14.6 mmol/L (3-11); CO2 20.4 mmol/L (21.0-32.0); Chloride 99 mmol/L (98-107); Estimated GFR 5.64 (mL/min/1.73m2); Glucose 238 mg/dL (74-106); Potassium 5.9 mmol/L (3.5-5.1); Sodium 134 mmol/L (136-145)
[2023-06-30 05:43] LABS: Magnesium 2.3 mg/dL (1.8-2.4)
[2023-06-30 05:47] LABS: PHOSPHORUS 8.3 mg/dL (2.6-4.7)
[2023-06-30 05:48] LABS: BUN 125 mg/dL (7-18)
[2023-06-30 05:49] LABS: CREATININE 7.2 mg/dL (0.55-1.02)
[2023-06-30] MEDS: MORPHine 2 MG/ML SYR IVP ×3 (06:47→21:24)
--- NOTE | 2023-06-30 07:00 | DI.RAD_ITS ---
Exam(s) XR PORTABLE CHEST AP EXAM: XR PORTABLE CHEST AP CLINICAL HISTORY: CHF with RHONDA and worsening TECHNIQUE: 2D digital imaging was performed. COMPARISON: CR XR LINE PLACEMENT PICC/CVA from 06/26/2023 CR XR PORTABLE CHEST AP from 06/29/2023 FINDINGS: The exam is limited by under penetration and overlying monitoring leads. Small bilateral pleural eff usions are again noted. No significant change from prior. Some right-sided IJ catheter again noted unchanged in position. IMPRESSION: Stable small bilateral pleural effusions. DATA REPOSITORY: RADIATION DOSE DELIVERED:
--- NOTE | 2023-06-30 07:42 | DI.VRAD_ITS ---
PROCEDURE INFORMATION: Exam: XR Chest Exam date and time: 06/30/2023 6:45 AM Age: 73 years old Clinical indication: Patient HX: Chf with dino and worsening TECHNIQUE: Imaging protocol: Radiologic exam of the chest. Views: 1 view. COMPARISON: CR XR PORTABLE CHEST AP 06/29/2023 4:46 PM FINDINGS: Tubes, catheters and devices: Right internal jugular vein catheter with tip at the cavoatrial junction. Lungs: Bibasilar consolidations appear stable. Pleural spaces: Unchanged small pleural effusions. No pneumothorax. Heart/Mediastinum: Prominent heart. Bones/joints: Unremarkable. IMPRESSION: Stable small pleural effusions and bibasilar consolidations. Stable cardiomegaly. Dictated and Authenticated by: Danisha Bird MD. Ordering:TIM Tovar MD
[2023-06-30] MEDS: Insulin Aspart 300 UNITS/3 ML PEN SC ×3 (07:56→17:31)
--- NOTE | 2023-06-30 07:58 | PUCC_ITS ---
General Date of Service Date of service: 06/30/23 Time of Service: 07:58 Assessment and Plan Assessment and plan (1) Acute on chronic respiratory failure with hypoxia: Status: Acute (2) Acute on chronic kidney failure: Status: Acute Qualifiers: Acute renal failure type: with acute tubular necrosis Chronic kidney disease stage: unspecified stage Qualified Code(s): N17.0 - Acute kidney failure with tubular necrosis; N18.9 - Chronic kidney disease, unspecified (3) CAP (community acquired pneumonia): Status: Acute Qualifiers: Laterality: unspecified laterality Qualified Code(s): J18.9 - Pneumonia, unspecified organism (4) Diabetes: Status: Chronic (5) Septic shock: Status: Resolved (6) Hyperphosphatemia associated with renal failure: Status: Acute (7) COPD (chronic obstructive pulmonary disease): Status: Chronic Qualifiers: COPD type: emphysema Emphysema type: centrilobular Qualified Code(s): J43.2 - Centrilobular emphysema (8) Pleural effusion: Status: Acute (9) Leukocytosis: Status: Acute (10) Hyponatremia: Status: Acute (11) Hyperkalemia: Status: Acute (12) High anion gap metabolic acidosis: Status: Acute (13) Normal anion gap metabolic acidosis: Status: Acute (14) Uremia of renal origin: Status: Acute (15) Hypocalcemia: Status: Acute (16) Right bundle branch block: Status: Acute Assessment and plan: This is a 73 yo admitted to the ICU initially for septic shock due to pneumonia requiring pressors and now with a primary problem of acute on chronic renal failure. Her CKD certainly puts her at risk for ARF in a hypotensive situation. No muddy brown casts seen on UA, however this may represent ATN from her septic shock. I do not think a Lasix drip will be effective for her (and has proven to not be). I recommend giving Lasix 120mg and 1000mg Diuril at the same time this morning. I will also add indapamide 5mg daily along with Lasix 120mg bid. She has not had any renal imaging in the setting fo the renal failure which really should have been done. I have ordered a renal ultrasound. She does have acute on chronic hypoxic respiratory failure (on exertional and nighttime O2 at home) as well as peripheral edema due to the renal failure and her uremia is worsening. She has both AGMA and NAGMA acid base issues, however there is no current indication for either bicarb or dialysis at this time. I have held her gabapentin given the worsening renal failure. I advise against any IVF's at this time. Recommendations Pulmonary: Acute on chronic hypoxic respiratory failure - supplemental O2 as needed for sats >88% - BiPAP as needed - IS, VibraPEP - out of bed to chair/mobilization recommended COPD - not in exacerbation - stop prednisone - on Trelegy as outpatient - Symbicort and SPiriva while inpatient - add Duonebs QID standing - add prn albuterol Pleural Effusion - no intervention required at this time - diuresis Cardiac: RBBB - continue to monitor electrolytes Septic Shock - resolved Renal: Acute on Chronic Renal Failure - Lasix 120mg bid - Indapamide 5mg daily - stop Lasix drip - give Diuril this morning at same time as Lasix 120 - renal ultrasound - avoid IVF's - maintain MAP >65mmHg - no bicarb need currently - no dialysis indicated currently - monitor daily electrolytes including Mg and Phos AGMA and NAGMA - AGMA is likely from uremia - NAGMA is likely from renal failure - continue to monitor Uremia - monitor for encephalopathy, pericarditis (EKG this morning ok) Hyperphosphatemia - start PhosLo 667mg bid I&O: Intake & Output 06/27/23 06/28/23 06/29/23 06/30/23 23:59 23:59 23:59 23:59 Intake Total 4754.893 / 4754.893 1050 / 1070 1310 / 1310 420 / 420 Output Total 330 / 330 495 / 495 350 / 350 225 / 225 Balance 4424.893 / 4424.893 555 / 575 960 / 960 195 / 195 Weight 131.4 kg Daily Fluid Goal:: even to negative GI Nutrition: Nutrition - stop heart healthy diet - start renal diet Date of Last Bowel Movement: 06/28/23 Infectious Disease: Pneumonia - Zosyn and doxycycline for total of 7 days Hematologic: Leukocytosis - resolved Neurologic: No acute concerns Endocrine: Diabetes - glucose levels uncontrolled - SSI - resistant - add Lantus 15U qhs Lines: Right CVC Banegas PIV Prophylaxis: Protonix Heparin Code Status: Resuscitation Status Full Code Subjective Critical and life-threatening events over the past 24 hours: This is a 73 yo admitted to the ICU initially for septic shock requiring pressors due to a suspected pneumonia who now has a primary problem of acute renal failure. Her creatinine continues to rise with no real progress made on her oliguric renal failure. Her blood pressures are now stable. She has had resuscitation and even an additional LR bolus yesterday with no improvement in renal function. She has been on a Lasix drip without improvement. She feels as though he breathing is a challenge. She is on BiPAP intermittently which subjectively does not seem to be helping. She is able to maintain sats appropriately on nasal cannula. She denies pain, although states her backside is sore from the bed. Her electroplytes are stable. Her bicarb is not severely decreased. Exam Narrative Exam Narrative: Gen: NAD, normal respiratory effort, obese HENT: PERRL, moist mucosa Chest: Mild respiratory distress, normal appearance of chest, no crackles or wheezing anteriorly Heart: regular rate and rhythym, no murmurs, rubs or gallops Abdomen: Non-distended, soft, non tender Extremities: No clubbing, + edema Neuro: AAOx3 , non focal Psych: cooperative, appropriate mental affect Most Recent VS/Results Last Vital Signs Temp 36.2 C L 06/30/23 03:39 Pulse 65 06/30/23 07:42 Resp 30 H 06/30/23 07:42 BP 134/75 06/30/23 06:01 Pulse Ox 93 06/30/23 07:42 Laboratory Results - last 24 hr 06/29/23 06/29/23 06/29/23 18:47 18:53 23:07 WBC RBC Hgb Hct MCV MCH MCHC RDW Plt Count MPV Immature Gran % Neutrophils % Lymphocytes % Monocytes % Eosinophils % Basophils % Nucleated RBC % Absolute Neutrophils Absolute Lymphocytes Absolute Monocytes Absolute Eosinophils Absolute Basophils VBG pH 7.19 L* 7.21 L VBG pCO2 51 48 VBG pO2 45 52 VBG HCO3 19 L 19 L VBG Total CO2 19 L 18 L VBG O2 Saturation 78 85 VBG Base Excess -9 L -9 L VBG Lactate 0.9 Sodium 131 L Potassium 5.8 H Chloride 95 L Carbon Dioxide 21.1 Anion Gap 14.9 H BUN 113 H* Creatinine 6.6 H* Est GFR (CKD-EPI 2020) 6.26 Glucose 321 H Uric Acid 9.8 H Calcium 8.5 Phosphorus Magnesium Urine Color Yellow Urine Clarity Clear Urine pH 5.0 Ur Specific [place] 1.015 Urine Protein 100 H Urine Ketones Negative Urine Blood Moderate H Urine Nitrite Negative Urine Bilirubin Negative Urine Urobilinogen 0.2 Ur Leukocyte Esterase Negative Urine RBC 3-5 H Urine WBC Negative Ur Epithelial Cells Rare Urine Crystals Negative Urine Bacteria Rare Urine Casts 0-2 Fine Granular Urine Mucus Negative Urine Other Few Transitional Ur Culture Indicated? No Urine Glucose 250 H 06/30/23 06/30/23 02:55 05:10 WBC 10.41 RBC 3.61 L Hgb 10.9 L Hct 34.2 L MCV 95 MCH 30.2 MCHC 31.9 L RDW 13.7 Plt Count 161 MPV 9.2 Immature Gran % 2.3 Neutrophils % 89.8 Lymphocytes % 2.4 Monocytes % 5.2 Eosinophils % 0.0 Basophils % 0.3 Nucleated RBC % 0.0 Absolute Neutrophils 9.35 H Absolute Lymphocytes 0.25 L Absolute Monocytes 0.54 Absolute Eosinophils 0.00 Absolute Basophils 0.03 VBG pH 7.23 L 7.20 L VBG pCO2 47 49 VBG pO2 46 69 VBG HCO3 20 L 19 L VBG Total CO2 19 L 18 L VBG O2 Saturation 82 93 VBG Base Excess -8 L -9 L VBG Lactate Sodium 134 L Potassium 5.9 H Chloride 99 Carbon Dioxide 20.4 L Anion Gap 14.6 H BUN 125 H* Creatinine 7.2 H* Est GFR (CKD-EPI 2020) 5.64 Glucose 238 H Uric Acid Calcium 8.0 L Phosphorus 8.3 H Magnesium 2.3 Urine Color Urine Clarity Urine pH Ur Specific [place] Urine Protein Urine Ketones Urine Blood Urine Nitrite Urine Bilirubin Urine Urobilinogen Ur Leukocyte Esterase Urine RBC Urine WBC Ur Epithelial Cells Urine Crystals Urine Bacteria Urine Casts Urine Mucus Urine Other Ur Culture Indicated? Urine Glucose Review of Systems All systems reviewed & are unremarkable except as noted in HPI and below Time spent with patient Time spent in Critical Care: 60 Time spent in Critical care included: Chart review, Documenting critically ill care, Time at immediate bedside and Discussing critically ill care with other medical staff Pocus Exam Limited Cardiac Exam DATE OF EXAM: 06/30/23 TIME OF EXAM: 08:00 PROVIDER THAT PERFORMED THE STUDY: Alfreda Jackson IS THIS A REPEAT EXAM DURING THIS ENCOUNTER: no REASON FOR EXAM: Dyspnea VISUALIZED STRUCTURES: four chambers, LVOT, aortic valve, mitral valve, Interventricular septum and IVC VIEW OBTAINED: Parasternal long-axis, Parasternal short-axis and Subxiphoid PERTINENT FINDINGS/IMPRESSION: Plethoric IVC and RV dilation; No LV dysfunction, No pericardial effusion and No RV dysfunction Exam complete Multi-Disciplinary Checklist Lines/Tubes CENTRAL LINE: yes, Central Line Day#: 4 ARTERIAL LINE: no BANEGAS: yes, Banegas Day#: 4 ENDOTRACHEAL TUBE: no ICU Maintenance GLUCOSE 140-180mg/dL: no, Reason/Intervention: Lantus added qhs NUTRITION AT GOAL: yes PRESSURE ULCER: no RESTRAINTS: no ANTIBIOTICS(if yes, consider Stewardship): Yes Social Issues FAMILY UPDATED: no, Reason/Intervention: patient able PT/OT: no, 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
--- NOTE | 2023-06-30 08:00 | RT.EKG_ITS ---
APPROVED REPORT Exam: Resting ECG Reason for Exam: ARF Patient Location: I HR:69 bpm ECG Measurements Heart Rate 69 AXIS [place] 137 P 208 QRSd 185 QRS 155 QT 441 T 1 QTc 473 Conclusion NSR RBBB
[2023-06-30] MEDS: Tiotropium Bromide-Respimat 10 PUFF INH 2 PUFF IH (08:18)
[2023-06-30] MEDS: Budesonide/Formoterol 80/4.5 6.9 GM 60 PUFF INH IH ×2 (08:19→20:40)
[2023-06-30] MEDS: Furosemide 100 MG/10 ML VIAL 120 MG IVP (08:36)
[2023-06-30] MEDS: Heparin 5,000 UNITS/ML VIAL 5000 UNITS SC ×2 (09:02→16:32)
[2023-06-30] MEDS: DOXYCYCLINE 100 MG in Normal Saline 100 ML IVPB ×2 (09:02→21:14)
[2023-06-30] MEDS: Nystatin POWDER 60 GM JAR TP ×2 (09:03→16:57)
[2023-06-30] MEDS: Vitamins B Comp w/C TAB 1 TAB PO (09:03)
[2023-06-30] MEDS: Rosuvastatin 10 MG TAB PO (09:03)
[2023-06-30] MEDS: Amiodarone 200 MG TAB PO (09:03)
--- NOTE | 2023-06-30 09:26 | CMPROGNOTE_ITS ---
Date of service: 06/30/23 Care Management Progress Note Progress Note Text Progress Note Text: S/O: Shira was lying in bed with Bipap on. She reports she does not have Bipap at home. Family arrived, Shira shared that she she didn't remember them being in the room with her earlier but they said she looked more awake now than she had earlier. CM following. A: 73 year old female admitted to [facility] on 06/26/23 with Septic shock, CAP P: Anticipate Shira will be discharged home with no new services when medically stable. She will follow up with her community providers and plan of care and transport with family. CM will continue to support Shira and her discharge needs. SDOH(Care Management) Screening Will the Patient Participate in the Screening?: Unable to obtain
--- NOTE | 2023-06-30 10:01 | W.PM.PROGNOT ---
Date of Service Date of service: 06/30/23 Time of Service: 10:01 Assessment and Plan Assessment and plan (1) Septic shock: Status: Resolved Assessment and plan: - Patient met criteria for septic shock with respiratory rate of 44, pulse of 95, white blood cell count of 27, chest x-ray highly suspicious for pneumonia, RHONDA on CKD with creatinine increasing from 1.7-3.8, lactic acid of 7.1, and ongoing hypotension with systolic less than 80 despite adequate fluid resuscitation requiring IV Levophed Patient has been off levophed since 06/26 Source of her sepsis is presumabley her pneumonia; she is on Zosyn, doxycycline added yesterday, remains on prednisone (switched from solumedrol yesterday); still requiring BIPAP but oxygenation is improving. She still needs ICU care for close monitoring of her oxygenation and d/t her worsening kidney function. Patient had little response to lasix drip last night. She never got her bolus of 160 mg that I ordered, apparently was entered on wrong date myself and never got corrected. She did get diuril yesterday Dr. Jackson ordered another dose of diuril 1000 mg this moring and lasix 120 mg IVP and the patient has had 300 mL in urine output this morning. Patient will continue on twice daily dosing of iv lasix 120 mg and diuril 1000 mg twice daily, tomorrow she will start on indapamide If her renal function does not improve to point we are unable to control her hypervolemia or she has worsening metabolic acidosis or hyperkalemia then she will need hemodialysis. Critical care time spent interviewing and examining the patient, reviewing studies, discussing case with patient's nurse and consulting physicians was 35 minutes (2) CAP (community acquired pneumonia): Status: Acute Assessment and plan: d#5 Zosyn, d#2 doxycycline, continue supportive care w/ BIPAP and bronchodilatorrs, prednisone and antibiotics Qualifiers: Laterality: unspecified laterality Qualified Code(s): J18.9 - Pneumonia, unspecified organism (3) Acute on chronic kidney failure: Status: Acute Assessment and plan: likely ATN from her sepsis; she has granular casts on her UA; she has AG metabolic acidosis secondary to her RHONDA Qualifiers: Acute renal failure type: with acute tubular necrosis Chronic kidney disease stage: unspecified stage Qualified Code(s): N17.0 - Acute kidney failure with tubular necrosis; N18.9 - Chronic kidney disease, unspecified (4) Acute on chronic respiratory failure with hypoxia: Status: Acute Assessment and plan: - Due to septic shock and community-acquired pneumonia as noted above as well as underlying COPD without acute exacerbation -Currently on BiPAP with significant improvement in respiratory rate and oxygen requirements -Wean as tolerated (5) COPD (chronic obstructive pulmonary disease): Status: Chronic Assessment and plan: continue bronchodilators; her home regimen of Trelegy was never reordered. I have rectified this. continue w/ duoneb but can change to prn Qualifiers: COPD type: emphysema Emphysema type: centrilobular Qualified Code(s): J43.2 - Centrilobular emphysema (6) Hypertension: Status: Chronic Assessment and plan: -antihyperensives being held in light of her septic shock and now needing diuretics. Qualifiers: Hypertension type: unspecified Qualified Code(s): I10 - Essential (primary) hypertension (7) Depression: Status: Chronic Assessment and plan: - Continue home SSRI (8) Diabetes: Status: Chronic Assessment and plan: - Hold home metformin and sitagliptin to 2 RHONDA in the setting of infection -Sliding scale insulin, carb consistent diet Subjective Subjective Interval history since last seen: Patient remains on bipap w/ SPO2 of 93% (setting 16/8 cm, 28% FIO2), she is moderately dyspneic w/ any prolonged conversation. She complains of lower back pain. Exam Narrative Exam Narrative: Shira does not appear to be in any acute respiratory distress, not using her accessory resp muscles; she is able to talk in complete sentences but w/ prolonged conversation does get dyspneic. she is visiting w/ her daughter and her granddaughter Lungs: clear anterior in upper lung bell but has rales at the bases and right lung base w/ decreased breath sounds Heart: regular (rhythm now sinus), controlled rate in the 60's Abdomen: obese, soft, nontender Extremities: obese, trace to 1+ edema in her legs/ankles Neuro: alert/ oriented, cooperative, no focal deficits hernandez catheter draining 300 mL since given lasix 120 mg IVP and diuril 1000 mg this morning. Objective Last Vital Signs Temp 36.2 C L 06/30/23 03:39 Pulse 75 04/09/24 08:45 Resp 26 H 06/30/23 08:45 BP 134/75 06/30/23 06:01 Pulse Ox 93 06/30/23 08:45 Laboratory Results - last 24 hr 06/29/23 06/29/23 06/29/23 18:47 18:53 23:07 WBC RBC Hgb Hct MCV MCH MCHC RDW Plt Count MPV Immature Gran % Neutrophils % Lymphocytes % Monocytes % Eosinophils % Basophils % Nucleated RBC % Absolute Neutrophils Absolute Lymphocytes Absolute Monocytes Absolute Eosinophils Absolute Basophils VBG pH 7.19 L* 7.21 L VBG pCO2 51 48 VBG pO2 45 52 VBG HCO3 19 L 19 L VBG Total CO2 19 L 18 L VBG O2 Saturation 78 85 VBG Base Excess -9 L -9 L VBG Lactate 0.9 Sodium 131 L Potassium 5.8 H Chloride 95 L Carbon Dioxide 21.1 Anion Gap 14.9 H BUN 113 H* Creatinine 6.6 H* Est GFR (CKD-EPI 2020) 6.26 Glucose 321 H Uric Acid 9.8 H Calcium 8.5 Phosphorus Magnesium Urine Color Yellow Urine Clarity Clear Urine pH 5.0 Ur Specific [place] 1.015 Urine Protein 100 H Urine Ketones Negative Urine Blood Moderate H Urine Nitrite Negative Urine Bilirubin Negative Urine Urobilinogen 0.2 Ur Leukocyte Esterase Negative Urine RBC 3-5 H Urine WBC Negative Ur Epithelial Cells Rare Urine Crystals Negative Urine Bacteria Rare Urine Casts 0-2 Fine Granular Urine Mucus Negative Urine Other Few Transitional Ur Culture Indicated? No Urine Glucose 250 H 06/30/23 06/30/23 02:55 05:10 WBC 10.41 RBC 3.61 L Hgb 10.9 L Hct 34.2 L MCV 95 MCH 30.2 MCHC 31.9 L RDW 13.7 Plt Count 161 MPV 9.2 Immature Gran % 2.3 Neutrophils % 89.8 Lymphocytes % 2.4 Monocytes % 5.2 Eosinophils % 0.0 Basophils % 0.3 Nucleated RBC % 0.0 Absolute Neutrophils 9.35 H Absolute Lymphocytes 0.25 L Absolute Monocytes 0.54 Absolute Eosinophils 0.00 Absolute Basophils 0.03 VBG pH 7.23 L 7.20 L VBG pCO2 47 49 VBG pO2 46 69 VBG HCO3 20 L 19 L VBG Total CO2 19 L 18 L VBG O2 Saturation 82 93 VBG Base Excess -8 L -9 L VBG Lactate Sodium 134 L Potassium 5.9 H Chloride 99 Carbon Dioxide 20.4 L Anion Gap 14.6 H BUN 125 H* Creatinine 7.2 H* Est GFR (CKD-EPI 2020) 5.64 Glucose 238 H Uric Acid Calcium 8.0 L Phosphorus 8.3 H Magnesium 2.3 Urine Color Urine Clarity Urine pH Ur Specific [place] Urine Protein Urine Ketones Urine Blood Urine Nitrite Urine Bilirubin Urine Urobilinogen Ur Leukocyte Esterase Urine RBC Urine WBC Ur Epithelial Cells Urine Crystals Urine Bacteria Urine Casts Urine Mucus Urine Other Ur Culture Indicated? Urine Glucose Time Spent with Patient Time Spent with Patient: 35-49 minutes Time was spent: preparing to see the patient(eg.review tests), ordering medications,tests, procedures, referring, communicating with other health toddler caregiver, indepentently interpreting results, counseling the patient and care coordination
[2023-06-30] MEDS: Bumetanide 1 MG/4 ML VIAL 2 MG IVP ×2 (11:40→16:32)
--- NOTE | 2023-06-30 12:30 | RT.EKG_ITS ---
APPROVED REPORT Exam: Resting ECG Reason for Exam: acute renal failure, hyperkalemia Patient Location: I HR:70 bpm ECG Measurements Heart Rate 70 AXIS [place] 117 P 214 QRSd 200 QRS 179 QT 477 T -79 QTc 515 Conclusion Baseline artifact possibly sinus rhythm RBBB Baseline wander in lead(s) V2
[2023-06-30] MEDS: Albuterol/Ipratropium 3 ML UPD VIAL UPD ×3 (13:33→20:30)
--- NOTE | 2023-06-30 14:46 | CHAPLAIN ---
Shira is on a BIPAP machine, sleeping. She didn't respond when I spoke directly to her. 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 She lives in [place], and is supported by her daughter who lives in [place], and her son who is also near by. I will continue to visit Shira and try to catch up with her family when they are here.
[2023-06-30 15:04] LABS: BE (Venous) -9 mmol/L (-2-3); HCO3 (Venous) 19 mmol/L (23-28); O2 Sat (Venous) 86 %; TCO2 (Venous) 18 mmol/L (24-29); pCO2 (Venous) 49 mmHg (41-51); pO2 (Venous) 55 mmHg
[2023-06-30 16:11] LABS: Anion Gap 13.9 mmol/L (3-11); CO2 21.1 mmol/L (21.0-32.0); Calcium 8.2 mg/dL (8.5-10.1); Chloride 96 mmol/L (98-107); Estimated GFR 5.28 (mL/min/1.73m2); Glucose 225 mg/dL (74-106); Potassium 5.8 mmol/L (3.5-5.1); Sodium 131 mmol/L (136-145)
[2023-06-30 16:18] LABS: BUN 131 mg/dL (7-18); CREATININE 7.6 mg/dL (0.55-1.02)
[2023-06-30] MEDS: Alteplase 2 MG VIAL IJ (17:18)
[2023-06-30] MEDS: Water,Injection,Sterile 10 ML VIAL (17:30)
--- NOTE | 2023-06-30 19:30 | W.PM.DS.N ---
Date of service: 06/30/23 Time of Service: 19:30 DS: Diagnosis Discharge Diagnosis (1) Septic shock: Status: Resolved Asessment and Plan: 2nd to CAP; no organism identified, treate w/ Zosyn x 5d, and doxycycline x 2 d. improvment in her oxygenation and her hypercapnea w/ BIPAP. improvment in her inflammatory markers, WBC 27,950 > 10,410; lactate 8.9 > 0.9; procalcitonin never checked; screen for atypicals not done (legionella and mycoplasma); blood and urine cultures no growth. shock treated w/ iv fluids and norepinephrine (weaned off on 06/28/23). CXR 06/25: right basilar infiltrate and right pleural effusion, subsequent CXR 06/28 and 06/29: bilateral pleural effusions R > L, continued bibasilar consolidations patient was treated w/ solumedrol (06/25 to 06/28) and later changed to prednisone which was then cancelled by the denture contour wire specialist on 06/29. (2) CAP (community acquired pneumonia): Status: Acute Asessment and Plan: as above. no sputum was obtained. (3) Acute on chronic respiratory failure with hypoxia: Status: Acute Asessment and Plan: as above; treated w/ BIPAP w/ improvement in oxygenation and correction of hypercapnea (4) Acute kidney injury superimposed on chronic kidney disease: Status: Acute Asessment and Plan: baseline BUN and creatinine 25 and 1.7 respectively, presented BUN and creatinine 45 and 3.8 and progressively gosia to 131 and 7.6, UA w/ coarse granular casts renal US negative for obstruction. (5) Uremia of renal origin: Status: Acute (6) High anion gap metabolic acidosis: Status: Acute (7) Hypocalcemia: Status: Acute (8) Hyperphosphatemia associated with renal failure: Status: Acute (9) COPD (chronic obstructive pulmonary disease): Status: Chronic (10) Afib: (11) Right bundle branch block: Status: Acute (12) Hypertension: Status: Chronic (13) Depression: Status: Chronic (14) Diabetes: Status: Chronic Discharge Plan Disposition Patient Disposition: Transfer-Acute Inpatient Care Specific Acute Inpt Facility: [facility] Condition: Critical Discharge Details Reason For Visit: Septic Shock CAP Admit Date/Time: 06/26/23 13:00 Admit Provider: Navjot Rodriguez Attending Provider: Navjot Rodriguez Primary Care Provider: Liliam Noble Hospital Course Hospital Course: 73-year-old female with history of NIDDM, hypertension, hyperlipidemia, chronic kidney disease (baseline BUN of 25, baseline creatinine 1.7), COPD, heart failure with preserved ejection fraction, LVEF 55%, borderline concentric LVH, normal RV size and function moderate aortic stenosis peak gradient 33 mm, mean gradient 20 mm per echocardiogram from 01/26/2023, paroxysmal atrial fibrillation (not on chronic anticoagulation but rhythm controlled with Pacerone 200 mg daily and rate control with Toprol-XL 25 mg daily), who presented to emergency department on 06/26/2023 in acute respiratory distress and with hypotension. This been preceded by a few days of progressive dyspnea to the point where EMS was called and she was noted to be in respiratory distress with intercostal muscle retractions and hypoxemic with O2 sat of 80% requiring 15 L/min nonrebreather mask. She was noted to be tachypneic respiratory rate of 48 and pulse oximetry of 84% and was placed on BiPAP. Evaluation showed her to be septic with a white count of 27,000 with an acute kidney injury with a creatinine 3.8 and ABG showing a metabolic acidosis with elevated lactate of 8.9 and a pH of 7.28 with CO2 retention with a pCO2 of 53. Blood cultures and urine cultures were obtained. Blood cultures came back no growth and urine culture also came back no growth. Nasal swab for COVID-19 was negative. Unfortunately full Fluvid swab was never obtained to assess for influenza or RSV. Her chemistry panel showed mild elevation of her troponin at 62 which unfortunately was never trended out. She had a mild elevation of her AST at 52 and never gosia any higher than 72. The rest of her transaminases were normal. Albumin is low at 2.5 and went down to 1.9. Procalcitonin was never checked. Blood lactate level was elevated 8.9 at admission and normalized to 0.9 after fluid resuscitation. Patient was started on IV Zosyn. Unfortunately serology for atypicals was never obtained for Legionella or mycoplasma. Urine strep antigen was never obtained. Treatment included IV fluid resuscitation along with a norepinephrine drip and initiation of broad-spectrum antibiotics with Zosyn. Doxycycline was subsequently added on for a June 28. Norepinephrine was able to be weaned off on 06/28/2023. Initial pressures in the emergency department had dropped down into the 40s and 50s systolic which necessitated the norepinephrine. After norepinephrine her systolic pressures climbed into the 90s and upper 80s before finally stabilizing into the low 100s. Patient did receive left radial A-line by the morning of 06/28/2023 she was able to be weaned off the norepinephrine drip. She had no further hypotensive spells after the evening of 06/26/2023. Unfortunately renal function did not recover and she developed progressive azotemia which went into oliguric renal failure. Her admission BUN of 45 steadily climbed over the next few days to a peak of 131 and her creatinine on admission of 3.8 steadily gosia to 7.6 at the time of discharge. Ortega catheter has been placed on admission to monitor her urine output and her overall fluid accumulation she had a 10 L positive fluid balance throughout her hospital stay. Her urinalysis on admission demonstrated many amorphous urine crystals along with 20-50 coarse granular casts and 10-20 RBCs and 10-20 white blood cells per high-power field with greater than 300 mg/dL protein moderate blood but negative for nitrites. As stated above urine culture came back no growth. Follow-up urinalysis was done on 06/29/2023 and continue to show fine granular casts but this point her specific gravity was down to 1.015 but still showing 100 mg/dL protein. CK level was never checked. Daily BMP was followed as well as follow-up VBG's. She continues to do demonstrate a metabolic anion gap acidosis with a pH that seem to be stable at 7.20 her initial lactic acidosis resolved and her lactate levels normalized and her initial pCO2 improved declining from a high of 53 and dropping down to a pCO2 of 49. That she had a mixed acute anion gap metabolic acidosis and a superimposed chronic respiratory acidosis. She was maintained on BiPAP throughout her hospital stay never required intubation. Her inflammatory markers improved and her peak WBC of 27,950 normalized to a level of 10,400 at the time of her transfer to [facility]. Hemoglobin on admission was 13.8 g and with IV resuscitation diluted down to a hemoglobin of 10.9 g but had remained stable at the last 3 days of her hospital stay. She had no evidence of GI bleeding and was treated with Protonix for GI protection. With regard to her renal failure renal ultrasound was performed on the day of discharge and showed no obstructive uropathy. She has small right renal cyst but no calculi or hydronephrosis. On 06/29/2023 when I assumed her care she underwent bedside POCUS cardiac exam as well as ultrasound of her hepatic and portal veins. She had evidence of increased left ventricular filling pressures but no evidence of wall motion abnormalities. Hepatic vein and portal vein showed abnormal venous pattern with hepatic diastolic venous flow greater than systolic flow as well as a dilated IVC greater than 2.1 cm with lack of inspiratory collapsibility of less than 50%. Based on her significant hypervolemia she was started on a diuretic challenge on 06/29/2023 given IV Lasix and started on a Lasix drip and given Diuril. Following morning denture contour wire specialist discontinued the Lasix drip and started on boluses of Lasix 120 mg along with repeat doses of Diuril 1000 mg and when that did not provide an adequate diuresis patient was given Bumex 2 mg IV push. Her urinary output on the day of admission was only 65 mL and on 06/27/2023 was 330 mL and was 495 on 06/28/2023, and only 350 mL on 06/29/2023. Her total since midnight on 06/30/2023 was 375 mL but since noon until the time of discharge had only been 50 mL after the additional Bumex. [facility] was contacted and I discussed her case with plant facilities technician Dr. Chris Nayak who reviewed the case with me and felt that given the large doses of diuretics she received with an inadequate diuresis response he felt it reasonable for her to be transferred for ultrafiltration to remove her excess volume. I was then referred to a conversation with the medical ICU team which included the ICU fellow Dr. Promise Fuller and his attending Dr. Jenise Johnson who agreed that the patient warranted transfer for further renal and ICU management. Patient was accepted to the service of Dr. Guy Lawrence. Patient was hemodynamically stable (BP 127/82, HR 82 sinus w/ BBB) at transfer and remains on BIPAP at 16/8 w/ FIO2 of 28%. Home Meds and New Rx's Prescriptions: No Action Nicotrol 10 mg cartridge 1 inh inhalation 4-6XD PRN nystatin 100,000 unit/mL suspension 5 ml PO QID 7 Days Qty: 140 6RF Rx Instructions: Use as needed when developing thrush spironolactone 25 mg tablet 25 mg PO DAILY vitamin B complex-folic acid [B Complex 1 (with folic acid)] 0.4 mg tablet 1 tab PO DAILY cyclobenzaprine 10 mg tablet 10 mg PO HS PRN Patient Comments: 02/18/23 per PCP med list RH ([facility]) Oxygen Tank See Rx Instructions .ROUTE .MEDSUPPLY Qty: 1 Rx Instructions: As directed,2L with physical activity. gabapentin 100 mg capsule 1 cap PO HS amiodarone [Pacerone] 200 mg Tablet 200 mg PO DAILY Qty: 0 0RF Inhaler, Assist Devices [Pocket Chamber] 1 ea miscellaneous DIRECTED Qty: 0 0RF glipizide [Glucotrol XL] 5 mg Tablet Extended Release 24hr 5 mg PO DAILY Qty: 0 0RF escitalopram oxalate [Lexapro] 20 mg Tablet 20 mg PO DAILY cholecalciferol (vitamin D3) [Vitamin D3] 2,000 unit Capsule 2,000 unit PO DAILY albuterol sulfate [ProAir HFA] 90 mcg/actuation Hfa Aerosol Inhaler 2 puff Inhalation Q6H PRN PRN ([facility]) nebulizers mis See Dose Instructions .ROUTE .MEDSUPPLY Qty: 1 0RF Dose Instruction: As directed Rx Instructions: As directed Trelegy Ellipta 100-62.5-25 mcg blister with device 1 inh INHALATION DAILY rosuvastatin 10 mg tablet 10 mg PO DAILY Qty: 30 0RF Januvia 25 mg tablet 25 mg PO DAILY metoprolol succinate 25 mg tablet extended release 24 hr 25 mg PO DAILY Patient Comments: TAKE ONE TABLET BY MOUTH EVERY DAY nystatin 100,000 unit/gram powder 1 applic TOPICAL BID PRN Patient Comments: APPLY A SMALL AMOUNT TO SKIN FOLDS TWO TIMES A DAY NEEDED cyanocobalamin (vitamin B-12) 250 mcg tablet 250 mcg PO DAILY Patient Comments: TAKE ONE TABLET BY MOUTH EVERY DAY Discharge Instructions Instructions: Acute Kidney Injury (DC), Sepsis (DC) Activity:: bedrest Equipment/Supplies:: No Equipment Needed Diet:: Carb Counting DS: Summary Time Spent with Patient providing and/or coordinating discharge services: Greater than 30 minutes Specific discharge activities: Interview/exam of patient; review of discharge instructions, completion of prescriptions/discharge instructions; discussion w/ nursing and CM; documentation of hospital visit Status at Discharge Functional status at discharge: bed bound Overall status at discharge: patient is not back to baseline Mental Status: mental status grossly normal Speech and Movement: speech and movement normal Mood: congruent mood Affect: normal affect Quality:SDOH Health Related Social Needs: No Data to Display Exam Psych Mental Status: mental status grossly normal Speech and Movement: speech and movement normal Mood: congruent mood Affect: normal affect DS: Data Vitals/I&O Vitals and I&O: Vital Signs Temperature 36.2 C L 06/30/23 03:39 Temperature Source Tympanic 06/30/23 03:39 Pulse 82 06/30/23 18:31 Pulse 82 06/30/23 19:00 Respiratory Rate 22 06/30/23 19:00 Respiratory Effort Short of Breath, Incrsd Work of Breathing 06/30/23 09:15 Respiratory Depth Normal 06/30/23 09:15 Respiratory Pattern Tachypnea 06/30/23 09:15 Blood Pressure 127/82 06/30/23 19:00 Blood Pressure Mean 94 06/30/23 19:00 Blood Pressure Position Supine 06/28/23 07:59 Pulse Oximetry 94 06/30/23 18:31 Oxygen Delivery Method Bi-pap 06/30/23 15:53 Oxygen Flow Rate 2 06/30/23 03:27 Fraction of Inspired Oxygen (FIO2) 28 06/30/23 15:55 Pain Level 3 06/30/23 03:39 Comment pain level s/p ms04 administration 06/30/23 03:39 Arterial Systolic 162 06/29/23 14:00 Arterial Diastolic 79 06/29/23 14:00 Arterial Mean 107 06/29/23 14:00 Intake & Output 06/29/23 06/30/23 06/30/23 23:59 11:59 23:59 Intake Total 950 / 1310 838.083 / 888.083 50 / 888.083 Output Total 250 / 350 325 / 375 50 / 375 Balance 700 / 960 513.083 / 513.083 0 / 513.083 Weight 139.5 kg Intake: IV 850 / 970 288.083 / 338.083 50 / 338.083 Oral 100 / 340 550 / 550 Output: Urine 250 / 350 325 / 375 50 / 375 Other: Urine Color Yellow Yellow Pale Yellow Urine Appearance Clear Clear Sediment Comment MD AWARE LOW URINARY OUTPUT Ortega patent, draining, and intact. Urometer added to bag. Data Completed and Pending Labs on day of discharge: Labs from last 24 hours 06/30/23 06/30/23 06/30/23 15:52 14:58 05:10 WBC 10.41 RBC 3.61 L Hgb 10.9 L Hct 34.2 L MCV 95 MCH 30.2 MCHC 31.9 L RDW 13.7 Plt Count 161 MPV 9.2 Immature Gran % 2.3 Neutrophils % 89.8 Lymphocytes % 2.4 Monocytes % 5.2 Eosinophils % 0.0 Basophils % 0.3 Nucleated RBC % 0.0 Absolute Neutrophils 9.35 H Absolute Lymphocytes 0.25 L Absolute Monocytes 0.54 Absolute Eosinophils 0.00 Absolute Basophils 0.03 VBG pH 7.20 L 7.20 L VBG pCO2 49 49 VBG pO2 55 69 VBG HCO3 19 L 19 L VBG Total CO2 18 L 18 L VBG O2 Saturation 86 93 VBG Base Excess -9 L -9 L Sodium 131 L 134 L Potassium 5.8 H 5.9 H Chloride 96 L 99 Carbon Dioxide 21.1 20.4 L Anion Gap 13.9 H 14.6 H BUN 131 H* 125 H* Creatinine 7.6 H* 7.2 H* Est GFR (CKD-EPI 2020) 5.28 5.64 Glucose 225 H 238 H Uric Acid Calcium 8.2 L 8.0 L Phosphorus 8.3 H Magnesium 2.3 Urine Color Urine Clarity Urine pH Ur Specific Guinda Urine Protein Urine Ketones Urine Blood Urine Nitrite Urine Bilirubin Urine Urobilinogen Ur Leukocyte Esterase Urine RBC Urine WBC Ur Epithelial Cells Urine Crystals Urine Bacteria Urine Casts Urine Mucus Urine Other Ur Culture Indicated? Urine Glucose 06/30/23 06/29/23 06/29/23 02:55 23:07 18:53 WBC RBC Hgb Hct MCV MCH MCHC RDW Plt Count MPV Immature Gran % Neutrophils % Lymphocytes % Monocytes % Eosinophils % Basophils % Nucleated RBC % Absolute Neutrophils Absolute Lymphocytes Absolute Monocytes Absolute Eosinophils Absolute Basophils VBG pH 7.23 L 7.21 L VBG pCO2 47 48 VBG pO2 46 52 VBG HCO3 20 L 19 L VBG Total CO2 19 L 18 L VBG O2 Saturation 82 85 VBG Base Excess -8 L -9 L Sodium Potassium Chloride Carbon Dioxide Anion Gap BUN Creatinine Est GFR (CKD-EPI 2020) Glucose Uric Acid 9.8 H Calcium Phosphorus Magnesium Urine Color Yellow Urine Clarity Clear Urine pH 5.0 Ur Specific Guinda 1.015 Urine Protein 100 H Urine Ketones Negative Urine Blood Moderate H Urine Nitrite Negative Urine Bilirubin Negative Urine Urobilinogen 0.2 Ur Leukocyte Esterase Negative Urine RBC 3-5 H Urine WBC Negative Ur Epithelial Cells Rare Urine Crystals Negative Urine Bacteria Rare Urine Casts 0-2 Fine Granular Urine Mucus Negative Urine Other Few Transitional Ur Culture Indicated? No Urine Glucose 250 H 06/29/23 18:47 WBC RBC Hgb Hct MCV MCH MCHC RDW Plt Count MPV Immature Gran % Neutrophils % Lymphocytes % Monocytes % Eosinophils % Basophils % Nucleated RBC % Absolute Neutrophils Absolute Lymphocytes Absolute Monocytes Absolute Eosinophils Absolute Basophils VBG pH VBG pCO2 VBG pO2 VBG HCO3 VBG Total CO2 VBG O2 Saturation VBG Base Excess Sodium 131 L Potassium 5.8 H Chloride 95 L Carbon Dioxide 21.1 Anion Gap 14.9 H BUN 113 H* Creatinine 6.6 H* Est GFR (CKD-EPI 2020) 6.26 Glucose 321 H Uric Acid Calcium 8.5 Phosphorus Magnesium Urine Color Urine Clarity Urine pH Ur Specific Guinda Urine Protein Urine Ketones Urine Blood Urine Nitrite Urine Bilirubin Urine Urobilinogen Ur Leukocyte Esterase Urine RBC Urine WBC Ur Epithelial Cells Urine Crystals Urine Bacteria Urine Casts Urine Mucus Urine Other Ur Culture Indicated? Urine Glucose Preliminary micro results at discharge 06/26/23 10:40 Blood Culture - Preliminary Blood NO GROWTH 96 HOURS 06/26/23 10:30 Blood Culture - Preliminary Blood NO GROWTH 72 HOURS PFSH All Active Problems Hyperphosphatemia associated with renal failure (Acute) Right bundle branch block (Acute) Hypocalcemia (Acute) Uremia of renal origin (Acute) Normal anion gap metabolic acidosis (Acute) High anion gap metabolic acidosis (Acute) Hyperkalemia (Acute) Hyponatremia (Acute) Leukocytosis (Acute) Diabetes (Chronic) Acute on chronic respiratory failure with hypoxia (Acute) Acute on chronic kidney failure (Acute) CAP (community acquired pneumonia) (Acute) Pneumonia (Acute) Acute on chronic renal insufficiency (Acute) Sepsis (Acute) Aortic stenosis (Chronic) Obesity (Chronic) HLD (hyperlipidemia) (Acute) Hypomagnesemia (Acute) Acute kidney injury superimposed on chronic kidney disease (Acute) Acute on chronic respiratory failure with hypoxia (Acute) Tick bite (Acute) Parainfluenza (Acute) Type II diabetes mellitus (Acute) COPD exacerbation (Acute) Acute hyperkalemia (Acute) Pneumonia (Acute) Acute exacerbation of chronic obstructive pulmonary disease (Acute) Hypoxia (Acute) Abnormal ECG (Acute) Weakness (Acute) Diarrhea (Acute) Congestive heart failure (Chronic) Shortness of breath (Acute) Medication monitoring encounter (Acute) Tubular adenoma of colon (Acute) Diverticulosis (Chronic) Colon polyps (Chronic) Anemia (Chronic) Pleural effusion (Acute) Tobacco abuse (Chronic) Depression (Chronic) Hypertension (Chronic) Dental abscess (Acute) COPD (chronic obstructive pulmonary disease) (Chronic) Personal history of nicotine dependence (Acute) Right ankle injury (Acute) Anemia (Chronic) Medical History Afib Paroxysmal atrial flutter On supplemental oxygen therapy on O2 of night. Is able to lay flat CKD (chronic kidney disease) stage 3, GFR 30-59 ml/min Pt. denies Diabetes mellitus 10/21/21 [facility] visit not well controlled, A1C 8.2 Discharge planning issues Diabetes mellitus Surgical History History of colonoscopy (~12/2021) Hx of hernia repair Social History Smoking/Tobacco Use Status: Former Tobacco Use Quit Date: 03/23/18 Tobacco: How many years used: 65 Smoking risk assessment performed?: Yes Alcohol Intake: current Alcohol Intake frequency: holidays/special occasions only Drug use: Never Substance use type: does not use Housing: house Do you feel safe at home: Yes Do you feel safe in your relationship?: Yes Time Spent with Patient Time Spent with Patient: 45-69 minutes Time was spent: preparing to see the patient(eg.review tests), referring, communicating with other health neurocritical care physician, indepentently interpreting results, counseling the patient and care coordination
[2023-06-30] MEDS: Insulin Glargine 300 UNITS/3 ML PEN 15 UNITS SC (21:15)
[2023-06-30 21:31] LABS: Lab Add On Test DONE
[2023-06-30 21:43] LABS: Creatine Kinase 203 U/L (26-192)
== END 2023-06-30 21:45 | disposition short-term general hospital (02) | DRG 871 ==
LOC: ER 13:12 → ICU 13:27
PROVIDERS: Family Medicine; Internal Medicine; Admitting Provider Family Medicine; Emergency Provider Emergency Medicine Emergency Medical Services; PCP Nurse Practitioner Family; Visit Provider Family Medicine
DX: A41.9 Sepsis, unspecified organism (principal); J18.9 Pneumonia, unspecified organism; R65.21 Severe sepsis with septic shock; N17.0 Acute kidney failure with tubular necrosis; J96.21 Acute and chronic respiratory failure with hypoxia; E87.1 Hypo-osmolality and hyponatremia; E87.29 Other acidosis; I13.0 Hypertensive heart and chronic kidney disease with heart failure and stage 1 through stage 4 chronic kidney disease, or unspecified chronic kidney disease; I50.30 Unspecified diastolic (congestive) heart failure; Z68.43 Body mass index [BMI] 50.0-59.9, adult; N18.9 Chronic kidney disease, unspecified; J43.2 Centrilobular emphysema; F32.9 Major depressive disorder, single episode, unspecified; E11.22 Type 2 diabetes mellitus with diabetic chronic kidney disease; E83.39 Other disorders of phosphorus metabolism; E87.5 Hyperkalemia; E83.51 Hypocalcemia; I48.0 Paroxysmal atrial fibrillation; I45.10 Unspecified right bundle-branch block; E11.65 Type 2 diabetes mellitus with hyperglycemia; E78.5 Hyperlipidemia, unspecified; I35.0 Nonrheumatic aortic (valve) stenosis; F32.A Depression, unspecified; F41.9 Anxiety disorder, unspecified; D64.9 Anemia, unspecified; Z87.891 Personal history of nicotine dependence; Z79.84 Long term (current) use of oral hypoglycemic drugs; E66.01 Morbid (severe) obesity due to excess calories
CPT/HCPCS: 36556; 36620; 00123; 36415; 36591; 76604; 76770; 77001; 80048; 80053; 82550; 82805; 85027; 87040; 87635; 93005; 93308; 94640; 96365; 96366; 96368; 99291; 99292; 71045; 81003; 81015; 83605; 83735; 84100; 84484; 84550; 85025; 87086; 93010; 94660; 94760; 99233; 99239; J1205; J1644; J1815; J1939; J1940; J1941; J2003; J2270; J2543; J2919; J2997; J3475; J7620

== ENCOUNTER → 2023-06-30 09:28 | Outpatient (BNVA) | payer MEDICARE, SELFPAY | PROVIDERS: PCP Nurse Practitioner Family; Referring Provider Nurse Practitioner Family; Visit Provider Student in an Organized Health Care Education/Training Program ==

== ENCOUNTER 2023-09-22 18:32 | Emergency (ER) | payer MEDICARE, SELFPAY ==
[2023-09-22] VITALS (65 sets, daily range): BP systolic 45–235; BP diastolic 20–168; PULSE 64–171; RESP 13–38; TEMP 36.1; O2SAT 96–100
--- NOTE | 2023-09-22 18:30 | RT.EKG_ITS ---
APPROVED REPORT Exam: Resting ECG Reason for Exam: SOB Patient Location: E HR:79 bpm ECG Measurements Heart Rate 79 AXIS ND [id number] P [id number] QRSd 165 QRS -178 QT 474 T 39 QTc 544 Conclusion Accelerated junctional rhythm...absent P waves, accele'd V-rate RBBB and LPFB...QRSd >120mS, axis(90,210) ST depr, consider ischemia, anterolateral lds...ST <-0.10mV, I aVL V2-V6 Accelerated junctional rhythm at a rate of 79. Right bundle branch block with left axis deviation?bifascicular block. QRS widened at 165 ms. Prolonged QTc at [address] segment d epressions V2 and V4. More prominent compared to prior dated earlier this year.
--- NOTE | 2023-09-22 18:32 | W.ED.GENAD ---
Discharge Plan Discharge Details Chief Complaint: GenMedical Clinical Impression: Acute on chronic kidney failure, Shortness of breath, Pursed-lip breathing, Severe aortic stenosis Primary Care Provider: Liliam Villanueva ED Provider: Kelvin Frey Home Meds and New Rx's Prescriptions: No Action Nicotrol 10 mg cartridge 1 inh inhalation 4-6XD PRN aspirin [Adult Aspirin Regimen] 81 mg tablet,delayed release (DR/EC) 81 mg PO DAILY sevelamer carbonate 800 mg tablet 800 mg PO TID Rx Instructions: must administer with a meal/food insulin glargine 100 unit/mL solution 32 unit subcut QAM Patient Comments: 08/14/23 per [facility] D?C 07/18/23 RH insulin lispro 100 unit/mL insulin pen 1 sliding scale dose subcut USEASDIRECTD Patient Comments: 08/20/23 PCP OV notes RH cyanocobalamin (vitamin B-12) 250 mcg tablet 500 mcg PO DAILY Patient Comments: TAKE ONE TABLET BY MOUTH EVERY DAY 08/19/23 Per PCP notes RH omega-3 fatty acids-fish oil [Fish Oil] 360-1,200 mg capsule 1 cap PO DAILY (DME) Oxygen Tank See Rx Instructions .ROUTE .MEDSUPPLY Qty: 1 Rx Instructions: As directed,2L with physical activity. melatonin 3 mg capsule 6 mg PO QHS polyethylene glycol 3350 [Miralax] 17 gram/dose powder 17 g PO DAILY PRN amiodarone [Pacerone] 200 mg Tablet 200 mg PO DAILY Qty: 0 0RF Inhaler, Assist Devices [Pocket Chamber] 1 ea miscellaneous DIRECTED Qty: 0 0RF escitalopram oxalate [Lexapro] 20 mg Tablet 20 mg PO DAILY albuterol sulfate [ProAir HFA] 90 mcg/actuation Hfa Aerosol Inhaler 2 puff Inhalation Q6H PRN PRN (DME) nebulizers mis See Dose Instructions .ROUTE .MEDSUPPLY Qty: 1 0RF Dose Instruction: As directed Rx Instructions: As directed Trelegy Ellipta 100-62.5-25 mcg blister with device 1 inh INHALATION DAILY rosuvastatin 10 mg tablet 10 mg PO DAILY Qty: 30 0RF nystatin 100,000 unit/gram powder 1 applic TOPICAL BID PRN Patient Comments: APPLY A SMALL AMOUNT TO SKIN FOLDS TWO TIMES A DAY NEEDED HPI General Date/Time Provider Initiated Documentation: 09/22/23 19:02. HPI Narrative: MDM This is a chronically ill-appearing afebrile not tachycardic 73-year-old female with generalized weakness decreased p.o. concerning for the possibility of electrolyte abnormality versus ACS versus PE. Patient does not appear markedly volume overload so I am not concerned for acute heart failure. She does have pursed lip breathing and mild end expiratory wheeze concern for the possibility of exacerbation of reactive airway disease. Will obtain a venous blood gas to assess for hypercarbia and acidemia. No pain out of proportion to suggest necrotizing soft tissue infection. No recent trauma so doubt pneumothorax. Soft nontender abdomen so I am not suspicious for any intra abdominal process. No dysuria nor frequency however will obtain a urinalysis. No black nor bloody stools so doubt anemia. I considered CVA however the patient has no focal neurological deficits and as result I did not feel that she required a neurology consult nor a CT scan of her head nor an MRI. No fevers no nuchal rigidity to suggest meningitis and patient is not altered. I considered sepsis however the patient is not hypotensive nor tachycardic so I did not draw lactate nor check blood cultures. Will assess for signs of infiltrate on chest x-ray. Patient is moderate risk for PE so we will obtain a D-dimer. She has a history of aortic stenosis but does not appear volume overloaded to suggest acute heart failure. 7:45 PM Venous blood gas lacks acidemia and hypercarbia. 8 PM CBC shows no significant leukocytosis similar to prior from June 2023. No anemia. No thrombocytopenia. Negative troponin. Basic metabolic panel showing CKD. No hyperkalemia. No anion gap. Normal bicarbonate??not consistent with DKA despite mild hyperglycemia. Creatinine at the time of discharge from [facility] was 3.7. 8:12 PM On reassessment patient is tachypneic into the high 20s. She has pursed lip breathing. She looks clinically worse and I am concerned about sepsis I ordered lactate blood cultures and treated empirically with 2 g cefepime. 8:38 PM [facility] at [facility]. He advised that the patient's dialysis could accommodate a dye load if she required a contrast CT scan. Given that I cannot obtain bilateral duplex studies to assess for DVTs and that limited bedside lower extremity duplex study is less sensitive the radiology duplex will proceed with CT angiogram to assess for PE. Lactate mildly elevated at 2.3 mmol/L. 9:30 PM Repeat troponin negative. Urinalysis nitrite and leuk esterase negative??not consistent with UTI. 10 PM CTA chest showing chronic pulmonary hypertension. No PE. No aortic dissection or aneurysm. No airspace consolidation. No pneumothorax nor pleural effusions. No acute findings. 11 PM proBNP elevated compared to prior at 8500. Patient complained of right hip pain. I reassessed her. She had no pain with passive range of motion of right hip and no recent falls so I was not suspicious for hip fracture so did not obtain x-ray. No rash to suggest zoster. Will treat with acetaminophen and Lidoderm patch. 11:30 PM I had not yet heard back from cardiology. I added on a magnesium level. I signed patient out to the overnight provider. I feel that she requires tertiary care hospitalization in the setting of her symptomatic critical aortic stenosis. Chronic conditions affecting the care of the patient: Dialysis dependent History obtained from an outside historian: Paramedics External record review: [facility] EMR Diagnostic interpretations performed by me: Per my independent interpretation chest x-ray shows: Mildly volume overloaded with increased interstitial markings bilaterally. Per my independent interpretation EKG shows: Accelerated junctional rhythm at a rate of 79. Right bundle branch block with left axis deviation??bifascicular block. QRS widened at 165 ms. Prolonged QTc at [address] segment depressions V2 and V4. More prominent compared to prior dated earlier this year. ]Medications: N/A Social determinants of health affecting disposition: N/A Management discussed with: Nephrology Treatment/interventions considered: N/A Response to therapies provided: N/A HPI This is a 73-year-old female with history of dialysis and COPD arrived to the emergency department via EMS in the setting of weakness nausea vomiting. Patient reportedly had dialysis yesterday. She was hypotensive on rounds. She is due for dialysis again tomorrow. She denies any focal weakness but generally feels weak. She is not been able to ambulate nor tolerate p.o. She is reportedly on 2 L of oxygen at baseline. She lives with her grandson. She denies pain. She is having some shortness of breath. She denies any fevers. She denies dysuria and frequency. She has been dry heaving. No recent falls. Patient reports bruising on left forearm from her dog. Exam General: Chronically ill-appearing in no acute distress speaking in complete sentences. Head: Normocephalic, atraumatic. Eye: Extraocular eye movements intact. No conjunctival injection. No scleral icterus. Ear, nose, mouth, throat: Grossly normal inspection. Normal voice, handling secretions normally. Neck: Trachea midline. Cardiovascular: Well-perfused distal extremities. Regular rate and rhythm. Chest wall: Right chest wall port in place. No tenderness. No significant erythema. Respiratory: Nonlabored respiration. Decreased breath sounds bilateral bases obese soft nontender Gastrointestinal: Nondistended abdomen. Musculoskeletal: No significant lower extremity pitting edema. Moving all 4 extremities spontaneously. Left forearm with ecchymosis. Skin: Normal for age and race, grossly normal temperature and turgor. No acute rash. Neurologic: Alert and appropriate, no apparent acute deficits. Psychiatric: Mood and manner are appropriate. Grooming and personal hygiene are appropriate. Related Data Home Medications Medication Instructions Recorded Confirmed albuterol sulfate 90 mcg/actuation 2 puff inhalation Q6H PRN PRN 11/25/17 09/22/23 aerosol inhaler (ProAir HFA) escitalopram oxalate 20 mg tablet 20 mg PO DAILY 11/25/17 09/22/23 (Lexapro) nebulizers #1 ea 11/30/17 02/17/23 fluticasone fur. 100 mcg-umeclid 1 inh inhalation DAILY 09/30/20 09/22/23 62.5 mcg-vilant 25 mcg inhalat.powder (Trelegy Ellipta) Oxygen #1 ea 10/25/20 02/17/23 nicotine 10 mg inhalation 1 inh inhalation 4-6XD PRN 11/11/21 09/22/23 cartridge (Nicotrol) Inhaler, Assist Devices [Pocket 1 ea miscellaneous DIRECTED ##0 01/23/22 09/22/23 Chamber] amiodarone 200 mg tablet (Pacerone) 200 mg PO DAILY #0 tabs 01/23/22 09/22/23 rosuvastatin 10 mg tablet 10 mg PO DAILY #30 tabs 01/27/23 09/22/23 nystatin 100,000 unit/gram topical 1 applic topical BID PRN 06/29/23 09/22/23 powder aspirin 81 mg tablet,delayed 81 mg PO DAILY 08/14/23 09/22/23 release (Adult Aspirin Regimen) insulin glargine 100 unit/mL 32 unit subcut QAM 08/14/23 09/22/23 subcutaneous solution insulin lispro 100 unit/mL 1 sliding scale dose subcut 08/14/23 09/22/23 subcutaneous pen USEASDIRECTD sevelamer carbonate 800 mg tablet 800 mg PO TID 08/14/23 09/22/23 cyanocobalamin (vitamin B-12) 250 500 mcg PO DAILY 08/19/23 09/22/23 mcg tablet omega-3 fatty acids-fish oil 360 1 cap PO DAILY 08/19/23 09/22/23 mg-1,200 mg capsule (Fish Oil) melatonin 3 mg capsule 6 mg PO QHS 08/20/23 09/22/23 polyethylene glycol 3350 17 17 g PO DAILY PRN 08/20/23 09/22/23 gram/dose oral powder (Miralax) Previous Rx's Medication Instructions Recorded nebulizers #1 ea 11/30/17 Inhaler, Assist Devices [Pocket 1 ea miscellaneous DIRECTED ##0 01/23/22 Chamber] amiodarone 200 mg tablet (Pacerone) 200 mg PO DAILY #0 tabs 01/23/22 rosuvastatin 10 mg tablet 10 mg PO DAILY #30 tabs 01/27/23 Allergies Allergy/AdvReac Type Severity Reaction Status Date / Time codeine Allergy Mild Other (See Verified 09/22/23 19:28 Comment) fluticasone Allergy Mild Other (See Verified 09/22/23 19:28 [From Advair Diskus] Comment) salmeterol Allergy Mild Other (See Verified 09/22/23 19:28 [From Advair Diskus] Comment) Sulfa (Sulfonamide Allergy Mild Unknown Verified 02/17/23 13:16 Antibiotics) sulfasalazine AdvReac Intermediate Other (See Verified 09/22/23 19:28 Comment) General VIRY: 2 Medical Decision Making Quality:SDOH Health Related Social Needs: No Data to Display PFSH All Active Problems (Updated 09/22/23 @ 23:33 by Kelvin Frey MD) Severe aortic stenosis (Acute) Pursed-lip breathing (Acute) Shortness of breath (Acute) Acute on chronic kidney failure (Acute) Anxiety (Chronic) Hemodialysis patient (Acute) 08/19/23 Per PCP notes pt gets diaslysis at [facility] Hyperphosphatemia associated with renal failure (Acute) Right bundle branch block (Acute) Hypocalcemia (Acute) Uremia of renal origin (Acute) High anion gap metabolic acidosis (Acute) Hyperkalemia (Acute) Hyponatremia (Acute) Leukocytosis (Acute) Diabetes (Chronic) Acute on chronic respiratory failure with hypoxia (Acute) Acute on chronic kidney failure (Acute) CAP (community acquired pneumonia) (Acute) Acute on chronic renal insufficiency (Acute) Sepsis (Acute) Aortic stenosis (Chronic) Obesity (Chronic) HLD (hyperlipidemia) (Acute) Hypomagnesemia (Acute) Acute kidney injury superimposed on chronic kidney disease (Acute) Acute on chronic respiratory failure with hypoxia (Acute) Tick bite (Acute) Parainfluenza (Acute) Type II diabetes mellitus (Acute) COPD exacerbation (Acute) Acute hyperkalemia (Acute) Pneumonia (Acute) Acute exacerbation of chronic obstructive pulmonary disease (Acute) Hypoxia (Acute) Abnormal ECG (Acute) Weakness (Acute) Diarrhea (Acute) Congestive heart failure (Chronic) Shortness of breath (Acute) Medication monitoring encounter (Acute) Tubular adenoma of colon (Acute) Diverticulosis (Chronic) Colon polyps (Chronic) Anemia (Chronic) Pleural effusion (Acute) Tobacco abuse (Chronic) Depression (Chronic) Hypertension (Chronic) Dental abscess (Acute) COPD (chronic obstructive pulmonary disease) (Chronic) Personal history of nicotine dependence (Acute) Right ankle injury (Acute) Anemia (Chronic) Medical History (Updated 09/22/23 @ 23:33 by Kelvin Frey MD) Pneumonia Afib 08/19/23 Per PCP notes on aiodarone RH Paroxysmal atrial flutter On supplemental oxygen therapy on O2 of night. Is able to lay flat CKD (chronic kidney disease) stage 3, GFR 30-59 ml/min Pt. denies Diabetes mellitus 10/21/21 [facility] visit not well controlled, A1C 8.2 Discharge planning issues Diabetes mellitus Surgical History (Updated 07/01/23 @ 00:09 by PEYMAN MADRIGAL) History of colonoscopy (~12/2021) Hx of hernia repair Social History Smoking/Tobacco Use Status: Former Tobacco Use Quit Date: 03/23/18 Tobacco: How many years used: 65 Smoking risk assessment performed?: Yes Alcohol Intake: current Alcohol Intake frequency: holidays/special occasions only Drug use: Never Substance use type: does not use Housing: house Do you feel safe at home: Yes Do you feel safe in your relationship?: Yes POCUS Exam (ED) Limited Cardiac Exam DATE OF EXAM: 09/22/23 TIME OF EXAM: 19:03 PROVIDER THAT PERFORMED THE STUDY: Kelvin Frey IS THIS A REPEAT EXAM DURING THIS ENCOUNTER: no REASON FOR EXAM: Chest pain and Dyspnea VISUALIZED STRUCTURES: Four Chambers, Left ventricle, LVOT and Other structure: Lungs VIEW OBTAINED: Apical 4-Chamber, Parasternal long-axis and Subxiphoid PERTINENT FINDINGS/IMPRESSION: No pericardial effusion and No RV dilation DIFFERENTIAL DIAGNOSES: Aortic outflow track less than 4 cm, good squeeze, RV less than LV, no significant pericardial effusion. No B-lines bilaterally. Exam complete
--- NOTE | 2023-09-22 19:22 | DI.RAD_ITS ---
Exam(s) XR PORTABLE CHEST AP EXAM: XR PORTABLE CHEST AP CLINICAL HISTORY: Shortness of breath. TECHNIQUE: 2D digital imaging was performed. COMPARISON: Chest x-ray 06/29/2024 FINDINGS: Single AP portable view. Right internal jugular vein dialysis catheter is in satisfactory position with distal tip in the SVC. There is cardiomegaly. Mediastinum unchanged. Pulmonary venous hypertension pattern. Small-moderate size left pleural effusion. Smaller right ple ural effusion. IMPRESSION: Cardiomegaly. Vascular congestion. Small-moderate sized left pleural effusion and small right pleur al effusion. Atelectasis in the lung bases. DATA REPOSITORY: RADIATION DOSE DELIVERED:
[2023-09-22 19:28] LABS: BE (Venous) 5 mmol/L (-2-3); HCO3 (Venous) 30 mmol/L (23-28); O2 Sat (Venous) 52 %; TCO2 (Venous) 27 mmol/L (24-29); pCO2 (Venous) 47 mmHg (41-51); pH (Venous) 7.41 (7.31-7.41); pO2 (Venous) 26 mmHg
[2023-09-22 19:32] LABS: Abs Immature Grans 0.28 10^3/uL (0.0-0.06); Absolute Monocyte Count 1.14 10^3/uL (0.1-0.8); Basophils % 0.3 %; Eosinophils % 0.3 %; HCT 35.3 % (36.0-46.0); HGB 11.5 g/dL (11.2-15.7); Lymphocytes % 1.5 %; MCH 31.1 pg (27.0-33.0); MCHC 32.6 % (32.0-36.0); MCV 95 fL (80-95); MPV 9.1 fL (8.0-11.0); Monocytes % 4.2 %; Neutrophils % 92.7 %; Platelet Count 224 10^3/uL (130-400); RDW 13.5 % (11.7-14.6); RDW-SD 47.5 fL
--- NOTE | 2023-09-22 19:33 | DI.VRAD_ITS ---
PROCEDURE INFORMATION: Exam: XR Chest Exam date and time: 09/22/2023 19:17 Age: 73 years old Clinical indication: Shortness of breath; Patient HX: SOB TECHNIQUE: Imaging protocol: Radiologic exam of the chest. Views: 1 view. COMPARISON: XR PORTABLE CHEST AP 06/30/2023 06:45 FINDINGS: Tubes, catheters and devices: Right chest wall dialysis catheter, satisfactory position. Lungs: Left basilar opacity, improved. Right lung base much better aerated than prior. Pleural spaces: Small left greater than right pleural effusions favor improved. No pneumothorax. Heart/Mediastinum: Moderate to severe cardiomegaly with moderate vascular congestion and likely mild interstitial edema, similar to prior. Bones/joints: No acute fracture. IMPRESSION: 1. Moderate to severe cardiomegaly with moderate vascular congestion and likely mild interstitial edema, similar to prior. 2. Small left greater than right pleural effusions favor improved. 3. Left basilar compressive atelectasis favored over pneumonia, improved. Dictated and Authenticated by: Dorothea Tompkins MD. Ordering:ASHKAN Warren MD
[2023-09-22 19:47] LABS: Absolute Basophil Count 0.08 10^3/uL (0.0-0.2); Absolute Eosinophil Count 0.08 10^3/uL (0.0-0.7); Absolute Lymphocyte Count 0.41 10^3/uL (1.2-3.4); Absolute Neutrophil Count 25.14 10^3/uL (1.2-6.7)
[2023-09-22 19:49] LABS: Diff Comment Agrees w/ Instrument; WBC 27.12 10^3/uL (4.4-10.8)
[2023-09-22 19:50] LABS: Anion Gap 9.6 mmol/L (3-11); BUN 34 mg/dL (7-18); CO2 28.4 mmol/L (21.0-32.0); Chloride 91 mmol/L (98-107); Estimated GFR 6.88 (mL/min/1.73m2); Glucose 154 mg/dL (74-106); Potassium 4.8 mmol/L (3.5-5.1); RBC Morphology Normal; Sodium 129 mmol/L (136-145); Troponin I < 50 ng/L (< or =60)
[2023-09-22 19:52] LABS: CREATININE 6.1 mg/dL (0.55-1.02)
[2023-09-22 20:00] LABS: D-Dimer > 7500 ng/mlFEU (<500)
[2023-09-22 20:13] LABS: COVID-19 PCR Negative (Negative); Influenza A PCR Negative (Negative); Influenza B PCR Negative (Negative); RSV PCR Negative (Negative); Source Nasopharynx
[2023-09-22 20:20] LABS: Lactate 2.3 mmol/L (0.6-1.4)
--- NOTE | 2023-09-22 20:30 | DI.CT_ITS ---
Exam(s) CT CHEST PE CTA EXAM: CT CHEST PE CTA CLINICAL HISTORY: SOB weakness + dimer. TECHNIQUE: Imaging Protocol: CT angiography of the chest was performed using pulmonary embolus abilio col. Multi planar reconstructions were performed. CONTRAST MATERIAL: Intravenous: Omnipaque 350 Contrast volume: 100 cc COMPARISON: CT CT CHEST LUNG CANCER SCREEN from 05/27/2021 CR,XR XR PORTABLE CHEST AP from 09/22/2023 FINDINGS: CHEST: PULMONARY ARTERIES: Less than optimal opacification of the pulmonary arteries. The main pulmonary ar teries are somewhat dilated consistent with pulmonary artery hypertension. There are no central pulm onary emboli. Cannot assess the more peripheral pulmonary vasculature with accuracy here. LUNGS: No evidence of pulmonary infarction. No confluent infiltrates and there are no pleural effusi ons.. The finding described as a left pleural effusion on recent chest x-ray corresponds to extensio n of the pericardiac fat pad. There are no findings in trachea and mainstem bronchi. Distal tip of right internal jugular vein catheter is in the SVC. MEDIASTINUM: There is no hilar nor mediastinal adenopathy. Small nodule incidentally noted in the lef t thyroid lobe. CARDIAC: Mild-moderate cardiomegaly. There is fat in the interatrial septum. Subtle suggestion of c ommunication between the left and right atrium such as atrial septal defect. There is no significant shift of the interventricular septum. Diameter of the thoracic aorta is normal and there is no evid ence of aortic dissection. PARTIALLY VISUALIZED UPPERMOST ABDOMEN: Cholelithiasis noted. Slight thickening of the adrenal gland s which may represent adenomas. No splenomegaly. OSSEOUS: No significant osseous lesions.No fractures.. IMPRESSION: 1. Enlarged main pulmonary arteries which measure over 3 cm size, indicating element of chronic pulmo nary artery hypertension. No central pulmonary emboli seen. Respiratory motion artifact and less th an optimal bolus injection prevents accurate assessment of more distal pulmonary arterial tree. 2. There are no confluent infiltrates and there are no pleural effusions (as suggested on recent ches t x-ray). 3. Gallstones incidentally noted. RADIATION DOSE DELIVERED: 627.64mGy.cm Total DLP DATA REPOSITORY: All CT scans at this facility are submitted to the National Radiology Data Registry (NRDR) Dose Index Registry (DIR) with the [employer] ([employer]). RADIATION OPTIMIZATION: All CT scans at this facility use at least one of these dose optimization te chniques: automated exposure control; mA and/or kV adjustment per patient size (includes targeted exa ms where dose is matched to clinical indication); or iterative reconstruction.
[2023-09-22] MEDS: CEFEPIME 2 GM in Normal Saline 100 ML IVPB (20:33)
[2023-09-22 20:44] LABS: Bilirubin Small (Negative); Blood Negative (Negative); Clarity Cloudy (Clear); Glucose Negative (Negative); Ketones Trace mg/dL (Negative); Leukocyte Esterase Negative (Negative); Nitrite Negative (Negative); Specific Gravity >= 1.030 (1.005-1.025); Urobilinogen 0.2 mg/dL (Up to 0.2)
[2023-09-22 20:48] LABS: Bacteria Negative HPF (Negative); C & S Indicated? No; Casts Negative LPF (Negative); Crystals Negative HPF (Negative); Epithelial Cells Few HPF (Negative); Mucus Trace (Negative); RBC 0-2 HPF (0-2); WBC 0-2 HPF (0-5)
[2023-09-22] MEDS: Omnipaque 350 MG/ML 100 ML BTL IJ (20:48)
[2023-09-22] MEDS: Normal Saline Flush 10 ML SYR IVP (20:49)
[2023-09-22] MEDS: Normal Saline - Diluent 50 ML VIAL IJ (20:49)
[2023-09-22 20:54] LABS: Troponin I < 50 ng/L (< or =60)
--- NOTE | 2023-09-22 21:50 | DI.VRAD_ITS ---
PROCEDURE INFORMATION: Exam: CTA Chest With Contrast Exam date and time: 09/22/2023 21:21 Age: 73 years old Clinical indication: Shortness of breath and other: Weakness; Patient HX: SOB, weakness, + dimer, dialysis PT TECHNIQUE: Imaging protocol: Computed tomographic angiography of the chest with contrast. Exam focused on the arteries. 3D rendering (Not supervised by radiologist): MIP and/or 3D reconstructed images were created by the technologist. Radiation optimization: All CT scans at this facility use at least one of these dose optimization techniques: automated exposure control; mA and/or kV adjustment per patient size (includes targeted exams where dose is matched to clinical indication); or iterative reconstruction. Contrast material: OMNIPAQUE 350; Contrast volume: 66 ml; Contrast route: INTRAVENOUS (IV); COMPARISON: CT CHEST LUNG CANCER SCREEN 05/27/2021 13:12 FINDINGS: Tubes, catheters and devices: Right chest wall dialysis catheter, satisfactory position. Pulmonary arteries: Dilated pulmonary arteries consistent with chronic PA hypertension. No pulmonary artery emboli are seen accounting for motion artifact distally. Aorta: No aortic aneurysm. No aortic dissection. Thyroid: Small left thyroid nodules. Lungs: Motion artifact in the lungs. No airspace consolidation. Minimal dependent subsegmental atelectasis. Pleural spaces: No pneumothorax. No pleural effusion. Heart: Hacl-ch-ezewsxbl cardiomegaly, similar to prior. Lymph nodes: No enlarged lymph nodes. Gallbladder and biliary ducts: Cholelithiasis. Adrenal glands: Probable small adrenal adenomas or hypertrophy. Bones/joints: Degenerative changes in the spine. No acute fracture or subluxation. Soft tissues: No suspicious lesions. Other findings: Motion artifact. IMPRESSION: 1. Chronic PA hypertension. No pulmonary artery emboli are seen accounting for motion artifact distally. 2. Incidental findings as described. Dictated and Authenticated by: Dorothea Tompkins MD. Ordering:ASHKAN Warren MD
[2023-09-22] MEDS: Normal Saline 500 ML 250 ML IV (22:00)
--- NOTE | 2023-09-22 22:07 | NUR.NOTE ---
Nursing Note: MD aware of patients current vital signs and presentation, consulting with nephrology and the hospitalist. No new orders at this time.
[2023-09-22 22:52] LABS: NT-proBNP 8565 pg/mL (<300)
[2023-09-22] MEDS: Acetaminophen 500 MG TAB 1000 MG PO (22:59)
--- NOTE | 2023-09-22 23:35 | W.EDPROG ---
Date of service: 09/22/23 Time of Service: 23:35 Medical Decision Making This patient was signed out to me. Please see previous notes for H&P and initial eval. In brief 73yo F, full code, dialysis dependent CKD and critical , presented initially for generalized weakness. Tachycardiac on arrival with good BP however pursed lip breathing on exam. Workup signficant for WBC of 27 without overt source of infection (started on cefipime, given 250cc bolus) as well as BNP markedly elevated at 8500. Clinically looking worse as time passes here; HR normalized but now transient hypotension. Signed out pending [facility] cardiology consult; will need transfer to center with dialysis capability. Shortly after signed notified by nursing that patient's BP was continuing to fall, now 50's/20's. Patient alert and mentating well on my exam, denies chest pain, SOB, or presyncope, but does report feeling bad and nauseated. Lungs CTAB, minimal peripheral edema, continued pursed lip breathing. Given additional 250cc IVFB, additional IV access obtained and started on levophed, titrated up to 15mcg with good effect and MAP subsequently greater than 65. Discussed [facility]iology Dr. Vasques; presentation felt not to be primarily driven by her aortic stenosis and patient though to be more appropriate for MICU. [facility] does have capacity at this time. Discussed [facility] critical care team; advised to start vancomycin for potential port infection given no other identified source; accepted under DR. Padron to MICU green team. Subsequently able to titrate down on levophed to 10, tolerated well. Transferred to [facility] via air. Medical Records Medical records reviewed: Yes I reviewed the patient's medical records. Lab Data Lab results reviewed: Yes I reviewed the patient's lab results. Quality:[facility] Health Related Social Needs: No Data to Display Critical Care Time Critical Care Time Critical Care Time: Yes Total Critical Care Time: 32 Attestation: Due to a high probability of clinically significant, life threatening deterioration, the patient required my highest level of preparedness to intervene emergently and I personally spent this critical care time directly and personally managing the patient. This critical care time included obtaining a history; examining the patient; pulse oximetry; ordering and review of studies; arranging urgent treatment with development of a management plan; evaluation of patient's response to treatment; frequent reassessment; and, discussions with other providers. This critical care time was performed to assess and manage the high probability of imminent, life-threatening deterioration that could result in multi-organ failure. It was exclusive of separately billable procedures and treating other patients? Sign Out Sign Out Data: Sign Out Comment: Please follow-up with [facility] cardiology concerning tertiary care transfer for severe symptomatic aortic stenosis with no overt heart failure but pursed lip breathing at baseline respiratory failure with hypoxia on 2 L nasal cannula. Last updated by Kelvin Frey MD at 09/22/23 23:34 Discharge Plan Disposition Patient Disposition: Transfer-Acute Inpatient Care Specific Acute Inpt Facility: [facility] Condition: Critical Discharge Details Chief Complaint: GenMedical Clinical Impression: Shock, Acute on chronic kidney failure, Shortness of breath, Pursed-lip breathing, Severe aortic stenosis Primary Care Provider: Liliam Villanueva ED Provider: Danisha Horowitz Home Meds and New Rx's Prescriptions: No Action Nicotrol 10 mg cartridge 1 inh inhalation 4-6XD PRN aspirin [Adult Aspirin Regimen] 81 mg tablet,delayed release (DR/EC) 81 mg PO DAILY sevelamer carbonate 800 mg tablet 800 mg PO TID Rx Instructions: must administer with a meal/food insulin glargine 100 unit/mL solution 32 unit subcut QAM Patient Comments: 08/14/23 per [facility] D?C 07/18/23 [facility] insulin lispro 100 unit/mL insulin pen 1 sliding scale dose subcut USEASDIRECTD Patient Comments: 08/20/23 PCP OV notes [facility] cyanocobalamin (vitamin B-12) 250 mcg tablet 500 mcg PO DAILY Patient Comments: TAKE ONE TABLET BY MOUTH EVERY DAY 08/19/23 Per PCP notes [facility] omega-3 fatty acids-fish oil [Fish Oil] 360-1,200 mg capsule 1 cap PO DAILY (DME) Oxygen Tank See Rx Instructions .ROUTE .MEDSUPPLY Qty: 1 Rx Instructions: As directed,2L with physical activity. melatonin 3 mg capsule 6 mg PO QHS polyethylene glycol 3350 [Miralax] 17 gram/dose powder 17 g PO DAILY PRN amiodarone [Pacerone] 200 mg Tablet 200 mg PO DAILY Qty: 0 0RF Inhaler, Assist Devices [Pocket Chamber] 1 ea miscellaneous DIRECTED Qty: 0 0RF escitalopram oxalate [Lexapro] 20 mg Tablet 20 mg PO DAILY albuterol sulfate [ProAir HFA] 90 mcg/actuation Hfa Aerosol Inhaler 2 puff Inhalation Q6H PRN PRN (DME) nebulizers misc See Dose Instructions .ROUTE .MEDSUPPLY Qty: 1 0RF Dose Instruction: As directed Rx Instructions: As directed Trelegy Ellipta 100-62.5-25 mcg blister with device 1 inh INHALATION DAILY rosuvastatin 10 mg tablet 10 mg PO DAILY Qty: 30 0RF nystatin 100,000 unit/gram powder 1 applic TOPICAL BID PRN Patient Comments: APPLY A SMALL AMOUNT TO SKIN FOLDS TWO TIMES A DAY NEEDED
[2023-09-22] MEDS: Norepinephrine in D5W 8 MG/250 ML BAG 9.375 MG IV (23:48)
[2023-09-22 23:52] LABS: Magnesium 1.4 mg/dL (1.8-2.4)
[2023-09-22] MEDS: Lidocaine 5% Patch 1 PATCH TP (23:56)
[2023-09-23] VITALS (8 sets, daily range): BP systolic 141–162; BP diastolic 58–127; PULSE 68–187; RESP 24–27; O2SAT 100
[2023-09-23] MEDS: VANCOMYCIN 2,000 MG in Normal Saline 500 ML 250 MG IVPB (00:20)
== END 2023-09-23 01:48 | disposition short-term general hospital (02) ==
PROVIDERS: Emergency Medicine; Emergency Provider Student in an Organized Health Care Education/Training Program; PCP Nurse Practitioner Family
DX: I35.0 Nonrheumatic aortic (valve) stenosis; R57.9 Shock, unspecified; R09.89 Other specified symptoms and signs involving the circulatory and respiratory systems; R06.02 Shortness of breath; E11.22 Type 2 diabetes mellitus with diabetic chronic kidney disease; N18.6 End stage renal disease
CPT/HCPCS: 00123; 36415; 71275; 80048; 82805; 87040; 87077; 87637; 93005; 93308; 96361; 96365; 96366; 96367; 99291; 71045; 81003; 81015; 83605; 83735; 83880; 84484; 85025; 85379; 87186; 93010; J0692; J3370; J3490

== ENCOUNTER 2023-11-06 01:49 | Emergency (ER) | payer MEDICARE, SELFPAY ==
[2023-11-06] VITALS (27 sets, daily range): BP systolic 48–155; BP diastolic 15–76; PULSE 60–186; RESP 17–34; TEMP 35.6–36.6; O2SAT 78–100
--- NOTE | 2023-11-06 01:45 | RT.EKG_ITS ---
APPROVED REPORT Exam: Resting ECG Reason for Exam: aortic stenosis Patient Location: E HR:77 bpm ECG Measurements Heart Rate 77 AXIS MN 100 P 243 QRSd 164 QRS 145 QT 473 T 9 QTc 537 Conclusion Ectopic atrial rhythm...abnormal P axis, normal rate Consider dextrocardia...P, QRS axis rightward Physician: RBBB, no stemi
--- NOTE | 2023-11-06 01:45 | DI.RAD_ITS ---
Exam(s) XR PORTABLE CHEST AP EXAM: XR PORTABLE CHEST AP CLINICAL HISTORY: near syncope, SOB TECHNIQUE: 2D digital imaging was performed of the chest. One image was obtained. An AP view was ob tained. COMPARISON: CR,XR XR PORTABLE CHEST AP from 09/22/2023 FINDINGS: MEDIASTINUM: Normal. HEART: Mild cardiomegaly. PULMONARY VASCULATURE: Normal. LUNGS: No focal consolidating infiltrates. The lungs are hyperinflated with flattened diaphragms sug gesting underlying COPD. PLEURAL SPACE: There is again seen blunting of the left costophrenic angle. This is decreased compar ed to the prior examination. There is also now blunting of the right costophrenic angle. Tiny bilat eral pleural effusions are suspected. No pneumothorax. BONE:Within normal limits for the patient's age. OTHER FINDINGS:The right IJ catheter is stable. IMPRESSION: 1. Small bilateral pleural effusions. The left pleural effusion is decreased in size compared to the prior examination. 2. No focal pulmonary infiltrates. DATA REPOSITORY: RADIATION DOSE DELIVERED:
--- NOTE | 2023-11-06 02:17 | W.ED.GENAD ---
Discharge Plan Disposition Patient Disposition: Transfer-Acute Inpatient Care Specific Acute Inpt Facility: [facility] Condition: Critical Discharge Details Clinical Impression: Hemorrhagic shock, Acute GI bleeding Primary Care Provider: Liliam Villanueva ED Provider: Mazin Wagner Home Meds and New Rx's Prescriptions: No Action [place] Ellipta 100-62.5-25 mcg blister with device 1 inh INHALATION DAILY Rx Instructions: filled, Rx sent by [facility] aspirin [Adult Aspirin Regimen] 81 mg tablet,delayed release (DR/EC) 81 mg PO DAILY insulin glargine 100 unit/mL solution 20 unit subcut QAM insulin lispro 100 unit/mL insulin pen 1 sliding scale dose subcut QID cyanocobalamin (vitamin B-12) 250 mcg tablet 250 mcg PO DAILY Patient Comments: TAKE ONE TABLET BY MOUTH EVERY DAY 08/19/23 Per PCP notes [facility] omega-3 fatty acids-fish oil [Fish Oil] 360-1,200 mg capsule 1 cap PO DAILY (DME) Oxygen Tank See Rx Instructions .ROUTE .MEDSUPPLY Qty: 1 Rx Instructions: As directed,2L with physical activity. melatonin 3 mg capsule 6 mg PO QHS polyethylene glycol 3350 [Miralax] 17 gram/dose powder 17 g PO DAILY albuterol sulfate 2.5 mg /3 mL (0.083 %) solution for nebulization See Rx Instructions inhalation Q4H PRN (Reason: shortness of breath or wheezing) Qty: 90 2RF Rx Instructions: BID & PRN SOB, per [facility] D/C (10/2023) inhaled every 4 hours PRN; amiodarone [Pacerone] 200 mg Tablet 200 mg PO DAILY Qty: 0 0RF Inhaler, Assist Devices [Pocket Chamber] 1 ea miscellaneous DIRECTED Qty: 0 0RF escitalopram oxalate [Lexapro] 20 mg Tablet 20 mg PO DAILY albuterol sulfate [ProAir HFA] 90 mcg/actuation Hfa Aerosol Inhaler 2 puff Inhalation Q6H PRN PRN (DME) nebulizers misc See Dose Instructions .ROUTE .MEDSUPPLY Qty: 1 0RF Dose Instruction: As directed Rx Instructions: As directed rosuvastatin 10 mg tablet 10 mg PO DAILY Qty: 30 0RF Palmira-Frantz 0.8 mg tablet 1 tab PO DAILY Patient Comments: TAKE ONE TABLET BY MOUTH EVERY DAY acetaminophen 325 mg capsule 650 mg PO TID dextromethorphan-guaifenesin [Robitussin Cough-Chest Patricio DM] 5-100 mg/5 mL liquid 5 ml PO Q4H PRN miconazole nitrate 2 % cream 1 applic topical BID sennosides-docusate sodium [Senna with Docusate Sodium] 8.6-50 mg tablet 2 tab-cap PO BID PRN (Reason: constipation) ipratropium-albuterol 0.5 mg-3 mg(2.5 mg base)/3 mL solution for nebulization 3 ml inhalation Q4H PRN (Reason: wheezing) Rx Instructions: per [facility] med list, per [facility] rpt trazodone 50 mg tablet 50 mg PO QHS PRN HPI General Date/Time Provider Initiated Documentation: 11/06/23 01:55. HPI Narrative: This is a 73-year-old female with a past medical history of chronic oxygen dependence on 3 L, paroxysmal A-fib, aortic stenosis, hypertension, high cholesterol, diabetes, COPD, chronic renal failure on Thursday dialysis who was recently admitted for methicillin susceptible Staph aureus bacteremia and septic shock at [facility] and discharged 7 days ago after nearly a month-long stay, who presents today for evaluation of near syncope and bloody diarrhea. EMS and patient report that patient had been doing well, she went to bed this evening and felt fine, however when she awoke at around midnight she felt like she had to have a really bad bowel movement. She defecated in a bucket that was near her bedside, and EMS reports that it was filled with about 1 to 1-1/2 gallons of bright red blood and clots. When she got up to have this bowel movement she felt extremely lightheaded and fell back into a pile of detritus and garbage, and this gave her a very soft landing per patient and EMS. She did not strike her head chest back abdomen or extremities. She was on the ground for the next hour or so, eventually family members found her, EMS was called and she was brought to the ER for further assessment. [facility] was [facility], but is not on any other blood thinners. Related Data Home Medications ?Medication ?Instructions ?Recorded ?Confirmed albuterol sulfate 90 mcg/actuation 2 puff inhalation Q6H PRN PRN 11/25/17 11/06/23 aerosol inhaler (ProAir HFA) escitalopram oxalate 20 mg tablet 20 mg PO DAILY 11/25/17 11/06/23 (Lexapro) nebulizers #1 ea 11/30/17 10/31/23 Oxygen #1 ea 10/25/20 10/31/23 Inhaler, Assist Devices [Pocket 1 ea miscellaneous DIRECTED ##0 01/23/22 11/06/23 Chamber] amiodarone 200 mg tablet (Pacerone) 200 mg PO DAILY #0 tabs 01/23/22 11/06/23 rosuvastatin 10 mg tablet 10 mg PO DAILY #30 tabs 01/27/23 11/06/23 aspirin 81 mg tablet,delayed 81 mg PO DAILY 08/14/23 11/06/23 release (Adult Aspirin Regimen) insulin glargine 100 unit/mL 20 unit subcut QAM 08/14/23 11/06/23 subcutaneous solution insulin lispro 100 unit/mL 1 sliding scale dose subcut QID 08/14/23 11/06/23 subcutaneous pen cyanocobalamin (vitamin B-12) 250 250 mcg PO DAILY 08/19/23 11/06/23 mcg tablet omega-3 fatty acids-fish oil 360 1 cap PO DAILY 08/19/23 11/06/23 mg-1,200 mg capsule (Fish Oil) melatonin 3 mg capsule 6 mg PO QHS 08/20/23 11/06/23 polyethylene glycol 3350 17 17 g PO DAILY 08/20/23 11/06/23 gram/dose oral powder (Miralax) albuterol sulfate 2.5 mg/3 mL See Rx Instructions inhalation Q4H 10/31/23 11/06/23 (0.083 %) solution for nebulization PRN shortness of breath or wheezing #90 mL fluticasone fur. 100 mcg-umeclid 1 inh inhalation DAILY 10/31/23 11/06/23 62.5 mcg-vilant 25 mcg inhalat.powder (Trelegy Ellipta) acetaminophen 325 mg capsule 650 mg PO TID 11/06/23 11/06/23 dextromethorphan-guaifenesin 5 5 ml PO Q4H PRN 08/16/24 08/16/24 mg-100 mg/5 mL oral liquid (Robitussin Cough-Chest Congestion DM) ipratropium 0.5 mg-albuterol 3 mg 3 ml inhalation Q4H PRN wheezing 11/06/23 11/06/23 (2.5 mg base)/3 mL nebulization soln miconazole nitrate 2 % topical 1 applic topical BID 11/06/23 11/06/23 cream sennosides 8.6 mg-docusate sodium 2 tab-cap PO BID PRN constipation 11/06/23 11/06/23 50 mg tablet (Senna with Docusate Sodium) trazodone 50 mg tablet 50 mg PO QHS PRN 11/06/23 11/06/23 vitamin B complex-vitamin C-folic 1 tab PO DAILY 11/06/23 11/06/23 acid 0.8 mg tablet (Palmira-Frantz) Previous Rx's ?Medication ?Instructions ?Recorded nebulizers #1 ea 11/30/17 Inhaler, Assist Devices [Pocket 1 ea miscellaneous DIRECTED ##0 01/23/22 Chamber] amiodarone 200 mg tablet (Pacerone) 200 mg PO DAILY #0 tabs 01/23/22 rosuvastatin 10 mg tablet 10 mg PO DAILY #30 tabs 01/27/23 albuterol sulfate 2.5 mg/3 mL See Rx Instructions inhalation Q4H 10/31/23 (0.083 %) solution for nebulization PRN shortness of breath or wheezing #90 mL Allergies Allergy/AdvReac Type Severity Reaction Status Date / Time codeine Allergy Mild Other (See Verified 11/06/23 01:56 Comment) fluticasone (From Advair Allergy Mild Other (See Verified 11/06/23 01:56 Diskus) Comment) salmeterol (From Advair Allergy Mild Other (See Verified 11/06/23 01:56 Diskus) Comment) Sulfa (Sulfonamide Allergy Mild Unknown Verified 11/06/23 01:56 Antibiotics) sulfasalazine AdvReac Intermediate Other (See Verified 11/06/23 01:56 Comment) General Stated Complaint: GI Bleed VIRY: 3 Review of Systems All systems reviewed & are unremarkable except as noted in HPI and below Exam Narrative Exam Narrative: 1.Const: Well-nourished, Well-developed, appearing stated age 2.Eyes: PERRL, no conjunctival injection, and symmetrical lids. 3.ENT: Atraumatic external nose and ears. Notably dry MM. Neck: Symmetric, trachea midline, No thyromegaly. 4.CVS: +S1/S2, No murmurs or gallops. Peripheral pulses 2+ and equal in all extremities. Brisk capillary refill in all extremities. 5.RESP: Unlabored respiratory effort. Clear to auscultation bilaterally. No wheezes rales or rhonchi 6.GI: Soft, Nontender/Nondistended, No hepatosplenomegaly. No guarding or rebound. Gross blood noted around rectum, all over her legs and feet 7.MSK: Normocephalic/Atraumatic, Extremities w/o deformity or ttp No cyanosis or clubbing, Normal movement of all extremities 8.Skin: Warm, Dry. 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 Sensation grossly intact, no focal neurologic deficits. 10.Psych: (AAO) x3. Appropriate mood and affect Course Vital Signs Vital signs: Vital Signs Temperature 36.6 C 11/06/23 01:48 Pulse 81 11/06/23 01:48 Respiratory Rate 26 H 11/06/23 01:48 Pulse Oximetry 100 11/06/23 01:48 Temperature 36.6 C 11/06/23 01:48 Pulse 81 11/06/23 01:48 Respiratory Rate 26 H 11/06/23 01:48 Respiratory Effort Normal 11/06/23 01:58 Pulse Oximetry 100 11/06/23 01:48 Oxygen Delivery Method Nasal Cannula 11/06/23 01:48 Oxygen Flow Rate 4 11/06/23 01:48 Pain Level 1 11/06/23 01:48 Lab/Test Results Lab/Test Results: Laboratory Tests Range/Units 11/06/23 02:00 Crossmatch See Detail Procedures Arterial Line Time Out Performed: Yes Size (Gauge): 18 Technique Used: guide wire technique Post-Procedure: line sutured into place and dry sterile dressing placed Patient Tolerated Procedure: well and no complications Complications: none Site: left Additional Comments: Procedure: Arterial Line Indication: Hemodynamic monitoring A time-out was completed verifying correct patient, procedure, site, positioning, and special equipment if applicable. Brennan?s test was performed to ensure adequate perfusion. The patient?s <left> wrist was prepped and draped in sterile fashion. 1% Lidocaine was used to anesthetize the area. The arterial line was introduced into the radial artery. The catheter was threaded over the guide wire and the needle was removed with appropriate pulsatile blood return. The catheter was then sutured in place to the skin and a sterile dressing applied. Perfusion to the extremity distal to the point of catheter insertion was checked and found to be adequate. Estimated Blood Loss: 3ml?s The patient tolerated the procedure well and there were no complications. EJ/Peripheral Line Arm L: Time Out Performed: Yes Skin Cleansed in Sterile Fashion: Yes Size (gauge): 18 IV Secured and Dressing Applied: Yes Patient Tolerated Procedure: well and no complications Additional Comments: Candidate vein examined with linear array probe - confirmed collapsibility, lack of pulsatility, and proper anatomic location. Using aseptic technique, IV catheter inserted with flash of blood noted, flow of venous blood confirmed. Flushes easily and without pain. No hematoma or complications noted. IV secured. Patient tolerated well. Medical Decision Making This is a 73-year-old female with a past medical history of chronic oxygen dependence on 3 L, paroxysmal A-fib, aortic stenosis, hypertension, high cholesterol, diabetes, COPD, chronic renal failure on Thursday dialysis who was recently admitted for methicillin susceptible Staph aureus bacteremia and septic shock at [facility] and discharged 7 days ago after nearly a month-long stay, who presents today for evaluation of near syncope and bloody diarrhea. EMS and patient report that patient had been doing well, she went to bed this evening and felt fine, however when she awoke at around midnight she felt like she had to have a really bad bowel movement. She defecated in a bucket that was near her bedside, and EMS reports that it was filled with about 1 to 1-1/2 gallons of bright red blood and clots. When she got up to have this bowel movement she felt extremely lightheaded and fell back into a pile of detritus and garbage, and this gave her a very soft landing per patient and EMS. She did not strike her head chest back abdomen or extremities. She was on the ground for the next hour or so, eventually family members found her, EMS was called and she was brought to the ER for further assessment. Patient was on [facility], but is not on any other blood thinners. Exam demonstrates female with gross dried blood all over her legs feet and rectum. No abdominal tenderness, lungs are relatively clear, notably dry mucous membranes. On arrival patient's blood pressure was in the 70s systolic, heart rate in the 80s, but I suspect this is from her amiodarone management. No other acute abnormalities noted on exam. Concern for massive lower GI bleed. She denies any vomiting epigastric or chest pain. With the bright red blood noted both on her and at home, I suspect this is lower rather than an upper component. We will rehydrate, immediately give PRBCs, establish second large-bore IV, monitor closely and reassess. 3:06 AM Laboratory workup shows white count of 14, hemoglobin is 9.7, this is around a 2 point drop from 1 month ago. Blood pressure continued to decline with a systolic of 45-48, and a notably low MAP. Additional crystalloid was pushed for a total of 1 L, blood is currently running for the first unit. We will give IV Protonix and famotidine for potential unlikely upper GI bleed. Art line was placed for good blood pressure monitoring. As blood and crystalloid was administered pressures came back up to the 70s to 80s systolic. The patient did have a second episode of blood per rectum while I was placing the art line. We did contact [facility] and I discussed the case with the critical care team, they have accepted the patient for transfer. Patient will be transferred to [facility] ICU under Dr. Macias. I have extensively reviewed the treatment plan with the patient. I have addressed all patient concerns at this time. I have also discussed the plan with the admitting physician and they agree with the current assessment and plan and have agreed to assume responsibility for the patient. All parties demonstrate verbal understanding and agreement with our assessment and plan at this time. The documentation in this chart was dictated using [employer] dictation software. Please excuse any dictation errors. 3:45 AM Patient's blood pressure is now 140/64, she received 1 L of normal saline and 1 unit of PRBCs and is getting the second unit of PRBCs. Oxygen has stayed notably stable. She is on her chronic baseline of 3 to 4 L. No additional oxygenation is needed. Patient has been accepted at [facility], and will be transferred. Patient's mental status remains excellent, no indication for intubation. No need for starting pressors as the blood pressure is notably improved. I also discussed the case with the patient's family member Effie Mckinney, and she agrees with the plan. Quality:SDOH Health Related Social Needs: No Data to Display Critical Care Time Critical Care Time Critical Care Time: Yes Total Critical Care Time: 90 Attestation: Upon my evaluation, this patient had a high probability of imminent or life-threatening deterioration, which required my direct attention, intervention, and personal management. I have personally provided 90 minutes of critical care time exclusive of time spent on separately billable procedures. Time includes review of laboratory data, radiology results, discussion with consultants, and monitoring for potential decompensation. Interventions were performed as documented. [facility] All Active Problems (Updated 11/06/23 @ 03:39 by Mazin Wagner DO) Acute GI bleeding (Acute) Hemorrhagic shock (Acute) Difficulty sleeping (Acute) Trazadone helped - started @ [facility] hospitalization? Hospitalization within last 30 days (Acute) [facility] D/C, 10/30/23, w/o meds @ home (TBD).. Home via RCT. Family avble to help if/when called. Anxiety (Chronic) Hemodialysis patient (Acute) 08/19/23 Per PCP notes pt gets diaslysis at [facility] Hyperphosphatemia associated with renal failure (Acute) Right bundle branch block (Acute) Hypocalcemia (Acute) Uremia of renal origin (Acute) High anion gap metabolic acidosis (Acute) Hyperkalemia (Acute) Hyponatremia (Acute) Leukocytosis (Acute) Diabetes (Chronic) Acute on chronic respiratory failure with hypoxia (Acute) Acute on chronic kidney failure (Acute) CAP (community acquired pneumonia) (Acute) Acute on chronic renal insufficiency (Acute) Sepsis (Acute) Aortic stenosis (Chronic) Obesity (Chronic) HLD (hyperlipidemia) (Acute) Hypomagnesemia (Acute) Acute kidney injury superimposed on chronic kidney disease (Acute) Acute on chronic respiratory failure with hypoxia (Acute) Tick bite (Acute) Parainfluenza (Acute) Type II diabetes mellitus (Acute) COPD exacerbation (Acute) Acute hyperkalemia (Acute) Pneumonia (Acute) Acute exacerbation of chronic obstructive pulmonary disease (Acute) Hypoxia (Acute) Abnormal ECG (Acute) Weakness (Acute) Diarrhea (Acute) Congestive heart failure (Chronic) Shortness of breath (Acute) Medication monitoring encounter (Acute) Tubular adenoma of colon (Acute) Diverticulosis (Chronic) Colon polyps (Chronic) Anemia (Chronic) Pleural effusion (Acute) Tobacco abuse (Chronic) Depression (Chronic) Hypertension (Chronic) Dental abscess (Acute) COPD (chronic obstructive pulmonary disease) (Chronic) Personal history of nicotine dependence (Acute) Right ankle injury (Acute) Anemia (Chronic) Medical History Pneumonia Afib 08/19/23 Per PCP notes on aiodarone [facility] Paroxysmal atrial flutter On supplemental oxygen therapy on O2 of night. Is able to lay flat CKD (chronic kidney disease) stage 3, GFR 30-59 ml/min Pt. denies Diabetes mellitus 10/21/21 Counts Include 234 Beds At [facility] visit not well controlled, A1C 8.2 Discharge planning issues Diabetes mellitus Surgical History History of colonoscopy (~12/2021) Hx of hernia repair Social History Smoking/Tobacco Use Status: Former Tobacco Use Quit Date: 03/23/18 Tobacco: How many years used: 65 Smoking risk assessment performed?: Yes Alcohol Intake: current Alcohol Intake frequency: holidays/special occasions only Drug use: Never Substance use type: does not use Housing: house Do you feel safe at home: Yes Do you feel safe in your relationship?: Yes
[2023-11-06 02:23] LABS: Abs Immature Grans 0.15 10^3/uL (0.0-0.06); Absolute Basophil Count 0.07 10^3/uL (0.0-0.2); Absolute Eosinophil Count 0.43 10^3/uL (0.0-0.7); Basophils % 0.5 %; HCT 33.2 % (36.0-46.0); HGB 9.7 g/dL (11.2-15.7); Lymphocytes % 8.4 %; MCH 30.3 pg (27.0-33.0); MCHC 29.2 % (32.0-36.0); MCV 104 fL (80-95); MPV 8.6 fL (8.0-11.0); Monocytes % 8.2 %; Neutrophils % 78.9 %; Platelet Count 241 10^3/uL (130-400); RDW 13.9 % (11.7-14.6); RDW-SD 53.5 fL; WBC 14.32 10^3/uL (4.4-10.8)
[2023-11-06 02:24] LABS: Absolute Monocyte Count 1.17 10^3/uL (0.1-0.8)
[2023-11-06] MEDS: Normal Saline 500 ML IV (02:31)
[2023-11-06 02:45] LABS: INR 1.1 (0.9-1.1); PTT Activated 23.3 sec (23.6-32.8); Prothrombin Time 10.7 sec (9.1-11.1)
[2023-11-06 02:47] LABS: ALT 11 U/L (14-59); AST 18 U/L (15-37); Albumin 2.1 g/dL (3.4-5.0); Alkaline Phosphatase 71 U/L (46-116); Anion Gap 14.2 mmol/L (3-11); BUN 19 mg/dL (7-18); Bilirubin, Total 0.54 mg/dL (0.2-1.0); CO2 25.8 mmol/L (21.0-32.0); CREATININE 3.4 mg/dL (0.55-1.02); Calcium 8.4 mg/dL (8.5-10.1); Chloride 101 mmol/L (98-107); Estimated GFR 13.87 (mL/min/1.73m2); Glucose 126 mg/dL (74-106); NT-proBNP 2183 pg/mL (<300); Potassium 3.8 mmol/L (3.5-5.1); Sodium 141 mmol/L (136-145); TSH (W/Ref FT4) 6.37 uIU/mL (0.36-3.74); Total Protein 6.1 g/dL (6.4-8.2); Troponin I < 50 ng/L (< or =60)
--- NOTE | 2023-11-06 02:47 | TELEP.MEDREC ---
Date of service: 11/06/23 Time of Service: 02:47 Telepharmacy Home Med Rec Allergies Allergies: codeine Allergy (Mild, Verified 11/06/23 01:56) Other (See Comment) fluticasone (From Advair Diskus) Allergy (Mild, Verified 11/06/23 01:56) Other (See Comment) salmeterol (From Advair Diskus) Allergy (Mild, Verified 11/06/23 01:56) Other (See Comment) Sulfa (Sulfonamide Antibiotics) Allergy (Mild, Verified 11/06/23 01:56) Unknown sulfasalazine Adverse Reaction (Intermediate, Verified 11/06/23 01:56) Other (See Comment) Interview Person Interviewed: Patient who did not know her medications Quality Quality of Interview/Accuracy of Medication List: Good (Pt discharged from 10/29 - discharge medication reconciliation utilized. ) Sources Sources used to compile medication list: [employer] Medication List, PCP/Specialist List and [employer] Changes made to Home Medication List: ADDITIONS: B-Complex, APAP, Miconazole, Guaifenesin DM, Senna-Docusate DELETIONS: Nicotine, Nystatin, Sevelamer CHANGES: B12 dose, Lantus Dose, Lispro Dose, Duoneb frequency, Trazodone frequency Additional Notes Additional Notes: Compliance likely poor Recommended Changes Attestation: The home medication list is now updated to the best of my knowledge and is ready to be reconciled by the provider. Please contact the [facility] Medication Reconciliation Pharmacist at for any questions.
[2023-11-06 03:16] LABS: Procalcitonin 0.2 ng/mL
[2023-11-06] MEDS: Pantoprazole 40 MG VIAL IVP (03:36)
[2023-11-06] MEDS: Famotidine 20 MG/2 ML VIAL IVP (03:36)
--- NOTE | 2023-11-06 03:49 | DI.VRAD_ITS ---
PROCEDURE INFORMATION: Exam: XR Chest Exam date and time: 11/06/2023 2:38 AM Age: 73 years old Clinical indication: Shortness of breath; Additional info: Near syncope, SOB TECHNIQUE: Imaging protocol: Radiologic exam of the chest. Views: 1 view. COMPARISON: CT CHEST PE CTA 09/22/2023 9:21 PM FINDINGS: Tubes, catheters and devices: Tunneled dialysis catheter noted, right internal jugular venous access, tip mid superior vena cava. Monitoring wires are present. Lungs: Lungs are mildly hyperexpanded with flattening the diaphragms. Interstitial markings are mildly prominent. No consolidation. Pleural spaces: Blunting is noted in the costophrenic angles. No pneumothorax. Heart/Mediastinum: Mild cardiomegaly. Bones/joints: Unremarkable. IMPRESSION: 1. Mild interstitial infiltrates and/or edema. 2. Mild pleural effusions versus pleuroparenchymal scar. 3. Underlying chronic lung disease. Dictated and Authenticated by: Nash Beach MD. Ordering:RICH Retana MD
== END 2023-11-06 04:24 | disposition short-term general hospital (02) ==
PROVIDERS: Emergency Provider Student in an Organized Health Care Education/Training Program; PCP Nurse Practitioner Family
DX: R55 Syncope and collapse (principal); K92.2 Gastrointestinal hemorrhage, unspecified; R57.8 Other shock; Z99.2 Dependence on renal dialysis
CPT/HCPCS: 36430; 36573; 36620; 80053; 84145; 86850; 86900; 86901; 86920; 93005; 96361; 96374; 96375; 99291; 71045; 83880; 84439; 84443; 84484; 85025; 85610; 85730; 93010; J2470; P9016

== ENCOUNTER 2023-11-26 14:14 | Emergency (ER) | payer MEDICARE, SELFPAY ==
[2023-11-26] VITALS (66 sets, daily range): BP systolic 70–163; BP diastolic 42–118; PULSE 46–67; RESP 16–20; TEMP 36.6–36.8; O2SAT 77–100
--- NOTE | 2023-11-26 14:15 | DI.CT_ITS ---
Exam(s) CT PELVIC WO EXAM: CT PELVIC WO CLINICAL HISTORY: R. hip pain after fall, eval fx. TECHNIQUE: Imaging Protocol: Axial computed tomography images with coronal and sagittal reformatted images were created and reviewed CONTRAST MATERIAL: Intravenous: none Oral: None COMPARISON: CT CT ABDOMEN PELVIS WO from 12/27/2020 FINDING: PELVIS: OSSEOUS: No pelvic nor hip fractures evident.Moderate-advanced degenerative changes in the right hip noted.Compression fracture of the superior endplate of L4 noted which is described on the additional dictation for the CT scan of the lumbosacral spine. There are no fractures of the sacrum and sacroil iac joints appear unremarkable. ANTERIOR ABDOMINAL WALL/GI:No evidence of significant anterior abdominal wall nor inguinal hernia in the pelvis evident.No obvious bowel obstruction. No evidence of appendicitis.No evidence of acute si gmoid diverticulitis.There is a E linear 2.0 x 0.5 cm finding in the sigmoid which probably represent s a clip from prior colonoscopy related biopsy. This finding was not evident on abdominal CT scan of December 2020. LYMPH NODES: There is no intrapelvic nor inguinal adenopathy. URINARY BLADDER:. Collapsed. No obvious calculi nor obvious masses evident REPRODUCTIVE: Uterus and adnexal regions appear age-appropriate.. IMPRESSION: 1. No acute findings in the pelvis. Linear density in the sigmoid is most probably a clip from prior colonoscopy related biopsy. This was not evident on CT scan of December 2020. 2. See separate lumbar spine CT scan report concerning acute L4 superior endplate compression fractur e The CT reports were called by myself to the ER 11/26/2023 at 4:25 p.m. RADIATION DOSE DELIVERED: 595.43mGy.cm Total DLP DATA REPOSITORY: All CT scans at this facility are submitted to the National Radiology Data Registry (NRDR) Dose Index Registry (DIR) with the [employer] (A[employer]). RADIATION OPTIMIZATION: All CT scans at this facility use at least one of these dose optimization te chniques: automated exposure control; mA and/or kV adjustment per patient size (includes targeted exa ms where dose is matched to clinical indication); or iterative reconstruction.
--- NOTE | 2023-11-26 14:15 | DI.CT_ITS ---
Exam(s) CT LUMBAR SPINE WO EXAM: CT LUMBAR SPINE WO CLINICAL HISTORY: Fall, low back pain. TECHNIQUE: Imaging Protocol: Axial computed tomography images with coronal and sagittal reformatted images were created and reviewed COMPARISON: CT CT ABDOMEN PELVIS WO from 12/27/[address] CHEST PE CTA from 09/22/2023 FINDINGS: Bones: There is a compression fracture at superior endplate of L4 which was not evident on CT scan o f December 2020. There is approximately 20 percent height loss at the superior endplate level. At th is level with the superior aspect of the posterior cortex is bulging posteriorly approximately 5 mm, more so left than right of center and there is some impingement upon the thecal sac, this superimpose d upon pre-existing central spinal canal stenosis at this level.. There is vacuum phenomena M again noted within the L3-4 disc space but without evidence of an acute disc herniation nor disc height los s at this level. Fracture at this level does not extend into the pedicles and posterior osseous [place] ents of the vertebra.. At the L2-3 level there is again noted advanced disc space narrowing and vacuum phenomena M and mild anterolisthesis of L2 upon L3 which is unchanged from 2020 and there is severe central spinal canal s tenosis again noted at this level. OTHER LEVELS: T12-L1:No disc herniation nor canal stenosis. Facet joints unremarkable. No foraminal stenosis. L1-2: No disc herniation nor canal stenosis. Facet joints unremarkable. No foraminal stenosis. L2-3: Advanced disc space narrowing on the right side of the disc space. Also lateral right osteoph ytes. There is moderate foraminal stenosis on the right side with only mild foraminal stenosis on th e left side. Mild anterolisthesis L2 upon L3 related to facet arthropathy. Severe spinal canal sten osis due to short AP dimensions the pedicles and annular bulging and facet arthropathy. L3-4: L4 superior endplate compression fractures described above. Some disc space narrowing on the right side at this level is noted. There is moderate central spinal canal stenosis due to short AP d imensions of the pedicles, annular bulging and the posterior cortex bulging as described above relate d to the fracture. Some degenerative change in the facet joints. No facet malalignment. There is a n element of foraminal stenosis bilaterally, slightly more so on the right side. L4-5: This level exhibits moderate disc space narrowing. No disc herniation. Central canal dimensi ons are lower normal. Mild foraminal stenosis bilaterally. L5-S1: This level exhibits mild disc space narrowing. No significant disc herniation. Central nestor l dimensions are within normal limits. There are advanced degenerative changes in the facet joints b ilaterally at this level. However, there does not appear to be significant foraminal stenosis on eit her side at this level. The visualized sacroiliac joints and sacrum appear unremarkable. PARASPINAL SOFT TISSUES: No evidence of paraspinal hematoma. Incidentally noted are multiple calcifi cations in the partially visualized uncinate process of the pancreas. The entire pancreas is not inc luded in the field of view. Slight thickening of the left adrenal gland is noted as are cysts in the right kidney, the largest of which is located inferiorly measuring 3 cm. IMPRESSION: 1. Main acute finding here is a superior endplate compression fracture at L4 level with 15-20 percent height loss and an element of posterior bulging of the superior aspect of the posterior cortex of L4 which slightly compresses the thecal sac. This finding is superimposed upon pre-existing central ca nal stenosis. Some degenerative changes are noted in the facet joints at this level but no facet mal alignment. 2. There is more severe chronic central canal stenosis at L2-3 level where there is advanced disc spa ce narrowing and mild anterolisthesis of L2 upon L3 which was also present in 2020. There is severe central spinal canal stenosis at this level as well as asymmetric foraminal stenosis, right more than left. 3. Other findings as above. RADIATION DOSE DELIVERED: 1,997.46mGy.cm Total DLP DATA REPOSITORY: All CT scans at this facility are submitted to the National Radiology Data Registry (NRDR) Dose Index Registry (DIR) with the [employer] (ACR). RADIATION OPTIMIZATION: All CT scans at this facility use at least one of these dose optimization te chniques: automated exposure control; mA and/or kV adjustment per patient size (includes targeted exa ms where dose is matched to clinical indication); or iterative reconstruction.
--- NOTE | 2023-11-26 14:32 | W.ED.GENAD ---
Discharge Plan Discharge Details Chief Complaint: Orthopedic Primary Care Provider: Liliam Villanueva ED Provider: Radha Pierre Home Meds and New Rx's Prescriptions: No Action Tiff Ellipta 100-62.5-25 mcg blister with device 1 inh INHALATION DAILY Rx Instructions: filled, Rx sent by [facility] insulin glargine 100 unit/mL solution 20 unit subcut QAM cyanocobalamin (vitamin B-12) 250 mcg tablet 500 mcg PO DAILY Patient Comments: TAKE ONE TABLET BY MOUTH EVERY DAY 08/19/23 Per PCP notes [facility] omega-3 fatty acids-fish oil [Fish Oil] 360-1,200 mg capsule 1 cap PO DAILY (DME) Oxygen Tank See Rx Instructions .ROUTE .MEDSUPPLY Qty: 1 Rx Instructions: As directed,2L with physical activity. melatonin 3 mg capsule 6 mg PO QHS polyethylene glycol 3350 [Miralax] 17 gram/dose powder 17 g PO DAILY albuterol sulfate 2.5 mg /3 mL (0.083 %) solution for nebulization See Rx Instructions inhalation Q4H PRN (Reason: shortness of breath or wheezing) Qty: 90 2RF Rx Instructions: BID & PRN SOB, per [facility] D/C (10/2023) inhaled every 4 hours PRN; amiodarone [Pacerone] 200 mg Tablet 200 mg PO DAILY Qty: 0 0RF Inhaler, Assist Devices [Pocket Chamber] 1 ea miscellaneous DIRECTED Qty: 0 0RF buspirone 7.5 mg tablet 7.5 mg PO BID Patient Comments: TAKE ONE TABLET BY MOUTH TWICE A DAY FOR ANXIETY TAKE REGULARILY FOR 2 WEEKS THEN CAN USE MORE NEEDED insulin glargine [Lantus Solostar U-100 Insulin] 100 unit/mL (3 mL) insulin pen 10 unit subcut DAILY lidocaine 5 % adhesive patch,medicated 1 patch topical DAILY Rx Instructions: leave on most painful area for up to 12 hrs Nicotrol 10 mg cartridge 10 mg inhalation DIRECTED PRN Rx Instructions: Q1-2Hrs escitalopram oxalate [Lexapro] 20 mg Tablet 20 mg PO DAILY albuterol sulfate [ProAir HFA] 90 mcg/actuation Hfa Aerosol Inhaler 2 puff Inhalation Q6H PRN PRN (DME) nebulizers mis See Dose Instructions .ROUTE .MEDSUPPLY Qty: 1 0RF Dose Instruction: As directed Rx Instructions: As directed rosuvastatin 10 mg tablet 10 mg PO DAILY Qty: 30 0RF Palmira-Frantz 0.8 mg tablet 1 tab PO DAILY Patient Comments: TAKE ONE TABLET BY MOUTH EVERY DAY acetaminophen 325 mg capsule 650 mg PO TID dextromethorphan-guaifenesin [Robitussin Cough-Chest Patricio DM] 5-100 mg/5 mL liquid 5 ml PO Q4H PRN ipratropium-albuterol 0.5 mg-3 mg(2.5 mg base)/3 mL solution for nebulization 3 ml inhalation Q4H PRN (Reason: wheezing) Rx Instructions: per [facility] med list, per [facility] rpt trazodone 50 mg tablet 50 mg PO QHS PRN HPI General Mode of arrival: EMS. Date/Time Provider Initiated Documentation: 11/26/23 14:17. Limitations to Documentation: no limitations. Information obtained by: patient, EMS and old records reviewed. HPI Narrative: MDM: Hemoglobin in brief, this is a 73-year-old female patient with a past medical history significant for end-stage renal disease on hemodialysis, COPD on chronic home oxygen, CHF, hypertension, and a history of GI bleed, presenting for evaluation of right hip and lower back pain. Differential includes but is not limited to fracture, dislocation, certainly considered muscular strain or ligamentous sprain. Reassuringly the patient is without neurovascular deficit to suggest spinal cord injury, aortic pathology. The patient is without preceding medical complaints such as loss of consciousness, chest pain, or dizziness to suggest something other than a mechanical fall. I certainly considered metabolic and electrolyte derangements, kidney injury, liver disease, anemia. We will obtain laboratory studies to include CBC, CMP, magnesium, and PT/INR. I will obtain CT imaging of the patient's lumbar spine and pelvis to evaluate for injury. ED Course: I independently interpreted the laboratory studies, which show no significant leukocytosis, anemia, or thrombocytopenia. The chemistry panel is without evidence of electrolyte abnormality, new or worsening kidney dysfunction, or liver injury. Potassium is mildly low but given the patient's end-stage renal disease I will not be repleting this. The patient's CT imaging demonstrates an acute L4 superior endplate compression fracture with 20% height loss. We did attempt to obtain upright x-rays for stability but the patient was unable to tolerate standing position due to pain. At baseline the patient is able to ambulate with a walker, and I did reach out to the [facility] spine team, who recommended admission for pain management, PT OT, and eventual upright imaging to evaluate for stability of the fracture. Unfortunately, numerous area hospitals were contacted are at capacity and not accepting transfers. The patient cannot be admitted here due to her dialysis need, and so at the time that I signed out care of this patient to the oncoming team she remains in the emergency department awaiting final placement at a facility for dialysis, pain management, and PT OT for her new fracture. I did provide the patient with scheduled Tylenol and as needed multimodal pain medications. She tolerated p.o. intake and was hemodynamically appropriate throughout her time under my care. Radha Pierre MD HPI: This is a 73-year-old female patient with a past medical history significant for renal failure on hemodialysis Thursday through a right chest tunneled line, and history of COPD on 2 to 3 L of oxygen at home, aortic stenosis, hypertension, diabetes, and a recent admission for GI bleeding. She is presenting with EMS for evaluation of right hip and lower back pain. She reports that she has had right hip pain for several months, and has had a workup that was negative for fracture. Notably, the patient sustained a another fall 1 week ago, she was leaning over to untangle her dog. She reports that she landed on her right hip, did not have any head strike or loss of consciousness, and states that she does not take any blood thinning medications. The patient reports that she did not experience any dizziness, syncope, chest pain, or other medical abnormalities prior to this fall. She has been having difficulty with ambulation in the home environment, typically uses a walker but yesterday at dialysis required 2 person assist to get back into her house which is less typical for her. The ongoing pain and difficulty with mobility prompted her presentation to care today. The patient has otherwise been in her normal state of health without recent changes in her medications. Exam: Gen: Awake and alert, in no apparent distress HEENT: Non-icteric sclera, pupils equal and reactive, scalp atraumatic Neck: Supple, no C-spine tenderness or step-offs to palpation Lungs: No apparent respiratory distress, normal respiratory effort. CV: Appears well perfused, strong distal pulses. Right chest cath in place and dressed Abdomen: Non-distended, soft, nontender to palpation MSK: Moves 4 extremities without apparent limitation in ROM. The patient has no thoracic spine tenderness or step offs but does have tenderness to palpation of the inferior lumbar spine with no palpable step-offs. Pelvis is stable to AP compression, tenderness to palpation of the right hip. Skin: Visualized skin without rashes, cyanosis. Neuro: No obvious focal deficits or facial asymmetry. Speaks in full, clear sentences. The patient has preserved and symmetrical strength and sensation of her bilateral lower extremities. Psych: Appropriate for situation. Related Data Home Medications ?Medication ?Instructions ?Recorded ?Confirmed albuterol sulfate 90 mcg/actuation 2 puff inhalation Q6H PRN PRN 11/25/17 11/26/23 aerosol inhaler (ProAir HFA) escitalopram oxalate 20 mg tablet 20 mg PO DAILY 11/25/17 11/26/23 (Lexapro) nebulizers #1 ea 11/30/17 11/26/23 Oxygen #1 ea 10/25/20 11/26/23 Inhaler, Assist Devices [Pocket 1 ea miscellaneous DIRECTED ##0 01/23/22 11/26/23 Chamber] amiodarone 200 mg tablet (Pacerone) 200 mg PO DAILY #0 tabs 01/23/22 11/26/23 rosuvastatin 10 mg tablet 10 mg PO DAILY #30 tabs 01/27/23 11/26/23 insulin glargine 100 unit/mL 20 unit subcut QAM 08/14/23 11/26/23 subcutaneous solution cyanocobalamin (vitamin B-12) 250 500 mcg PO DAILY 08/19/23 11/26/23 mcg tablet omega-3 fatty acids-fish oil 360 1 cap PO DAILY 08/19/23 11/26/23 mg-1,200 mg capsule (Fish Oil) melatonin 3 mg capsule 6 mg PO QHS 08/20/23 11/26/23 polyethylene glycol 3350 17 17 g PO DAILY 08/20/23 11/26/23 gram/dose oral powder (Miralax) albuterol sulfate 2.5 mg/3 mL See Rx Instructions inhalation Q4H 10/31/23 11/26/23 (0.083 %) solution for nebulization PRN shortness of breath or wheezing #90 mL fluticasone fur. 100 mcg-umeclid 1 inh inhalation DAILY 10/31/23 11/26/23 62.5 mcg-vilant 25 mcg inhalat.powder (Trelegy Ellipta) acetaminophen 325 mg capsule 650 mg PO TID 11/06/23 11/26/23 dextromethorphan-guaifenesin 5 5 ml PO Q4H PRN 11/06/23 11/26/23 mg-100 mg/5 mL oral liquid (Robitussin Cough-Chest Congestion DM) ipratropium 0.5 mg-albuterol 3 mg 3 ml inhalation Q4H PRN wheezing 11/06/23 11/26/23 (2.5 mg base)/3 mL nebulization soln trazodone 50 mg tablet 50 mg PO QHS PRN 11/06/23 11/26/23 vitamin B complex-vitamin C-folic 1 tab PO DAILY 11/06/23 11/26/23 acid 0.8 mg tablet (Palmira-Frantz) buspirone 7.5 mg tablet 7.5 mg PO BID 11/26/23 11/26/23 insulin glargine 100 unit/mL (3 10 unit subcut DAILY 11/26/23 11/26/23 mL) subcutaneous pen (Lantus Solostar U-100 Insulin) lidocaine 5 % topical patch 1 patch topical DAILY 11/26/23 11/26/23 nicotine 10 mg inhalation 10 mg inhalation DIRECTED PRN 11/26/23 11/26/23 cartridge (Nicotrol) Previous Rx's ?Medication ?Instructions ?Recorded nebulizers #1 ea 11/30/17 Inhaler, Assist Devices [Pocket 1 ea miscellaneous DIRECTED ##0 01/23/22 Chamber] amiodarone 200 mg tablet (Pacerone) 200 mg PO DAILY #0 tabs 01/23/22 rosuvastatin 10 mg tablet 10 mg PO DAILY #30 tabs 01/27/23 albuterol sulfate 2.5 mg/3 mL See Rx Instructions inhalation Q4H 10/31/23 (0.083 %) solution for nebulization PRN shortness of breath or wheezing #90 mL Allergies Allergy/AdvReac Type Severity Reaction Status Date / Time codeine Allergy Mild Other (See Verified 11/26/23 15:07 Comment) fluticasone (From Advair Allergy Mild Other (See Verified 11/26/23 15:07 Diskus) Comment) salmeterol (From Advair Allergy Mild Other (See Verified 11/26/23 15:07 Diskus) Comment) Sulfa (Sulfonamide Allergy Mild Unknown Verified 11/26/23 15:07 Antibiotics) sulfasalazine AdvReac Intermediate Other (See Verified 11/26/23 15:07 Comment) General Stated Complaint: Orthopedic VIRY: 3 Course Vital Signs Vital signs: Vital Signs Temperature 36.8 C 11/26/23 14:11 Pulse 67 11/26/23 14:11 Respiratory Rate 20 11/26/23 14:11 Blood Pressure 124/93 H 11/26/23 14:11 Pulse Oximetry 97 11/26/23 14:11 Temperature 36.8 C 11/26/23 14:11 Temperature Source Temporal Artery Scan 11/26/23 14:11 Pulse 67 11/26/23 14:11 Respiratory Rate 20 11/26/23 14:11 Blood Pressure 124/93 H 11/26/23 14:11 Blood Pressure Position Supine 11/26/23 14:11 Pulse Oximetry 97 11/26/23 14:11 Oxygen Delivery Method Nasal Cannula 11/26/23 14:11 Oxygen Flow Rate 2 11/26/23 14:11 Medical Decision Making Quality:SDOH Health Related Social Needs: No Data to Display PFSH All Active Problems (Updated 11/06/23 @ 03:39 by Mazin Wagner DO) Acute GI bleeding (Acute) Hemorrhagic shock (Acute) Difficulty sleeping (Acute) Trazadone helped - started @ [facility] hospitalization? Hospitalization within last 30 days (Acute) [facility] D/C, 10/30/23, w/o meds @ home (TBD).. Home via RCT. Family avble to help if/when called. Anxiety (Chronic) Hemodialysis patient (Acute) 08/19/23 Per PCP notes pt [facility] Hyperphosphatemia associated with renal failure (Acute) Right bundle branch block (Acute) Hypocalcemia (Acute) Uremia of renal origin (Acute) High anion gap metabolic acidosis (Acute) Hyperkalemia (Acute) Hyponatremia (Acute) Leukocytosis (Acute) Diabetes (Chronic) Acute on chronic respiratory failure with hypoxia (Acute) Acute on chronic kidney failure (Acute) CAP (community acquired pneumonia) (Acute) Acute on chronic renal insufficiency (Acute) Sepsis (Acute) Aortic stenosis (Chronic) Obesity (Chronic) HLD (hyperlipidemia) (Acute) Hypomagnesemia (Acute) Acute kidney injury superimposed on chronic kidney disease (Acute) Acute on chronic respiratory failure with hypoxia (Acute) Tick bite (Acute) Parainfluenza (Acute) Type II diabetes mellitus (Acute) COPD exacerbation (Acute) Acute hyperkalemia (Acute) Pneumonia (Acute) Acute exacerbation of chronic obstructive pulmonary disease (Acute) Hypoxia (Acute) Abnormal ECG (Acute) Weakness (Acute) Diarrhea (Acute) Congestive heart failure (Chronic) Shortness of breath (Acute) Medication monitoring encounter (Acute) Tubular adenoma of colon (Acute) Diverticulosis (Chronic) Colon polyps (Chronic) Anemia (Chronic) Pleural effusion (Acute) Tobacco abuse (Chronic) Depression (Chronic) Hypertension (Chronic) Dental abscess (Acute) COPD (chronic obstructive pulmonary disease) (Chronic) Personal history of nicotine dependence (Acute) Right ankle injury (Acute) Anemia (Chronic) Medical History Pneumonia Afib 08/19/23 Per PCP notes on aiodarone [facility] Paroxysmal atrial flutter On supplemental oxygen therapy on O2 of night. Is able to lay flat CKD (chronic kidney disease) stage 3, GFR 30-59 ml/min Pt. denies Diabetes mellitus 10/21/21 [facility] visit not well controlled, A1C 8.2 Discharge planning issues Diabetes mellitus Surgical History History of colonoscopy (~12/2021) Hx of hernia repair Social History Smoking/Tobacco Use Status: Former Tobacco Use Quit Date: 03/23/18 Tobacco: How many years used: 65 Smoking risk assessment performed?: Yes Alcohol Intake: current Alcohol Intake frequency: holidays/special occasions only Drug use: Never Substance use type: does not use Housing: house Do you feel safe at home: Yes Do you feel safe in your relationship?: Yes
[2023-11-26 14:53] LABS: Abs Immature Grans 0.07 10^3/uL (0.0-0.06); Absolute Basophil Count 0.03 10^3/uL (0.0-0.2); Absolute Eosinophil Count 0.01 10^3/uL (0.0-0.7); Absolute Lymphocyte Count 0.38 10^3/uL (1.2-3.4); Absolute Monocyte Count 0.85 10^3/uL (0.1-0.8); Absolute Neutrophil Count 12.62 10^3/uL (1.2-6.7); Basophils % 0.2 %; Eosinophils % 0.1 %; HGB 10.9 g/dL (11.2-15.7); Immature Grans % 0.5 %; Lymphocytes % 2.7 %; MCH 29.5 pg (27.0-33.0); MCHC 30.3 % (32.0-36.0); MCV 98 fL (80-95); MPV 8.3 fL (8.0-11.0); Monocytes % 6.1 %; Neutrophils % 90.4 %; Platelet Count 236 10^3/uL (130-400); RBC 3.69 10^6/uL (3.93-5.22); RDW 16.6 % (11.7-14.6); RDW-SD 57.2 fL; WBC 13.96 10^3/uL (4.4-10.8)
[2023-11-26] MEDS: ACETAMINOPHEN 1,000 MG/100 ML BTL 400 MG IVPB (14:59)
[2023-11-26 15:09] LABS: ALT 23 U/L (14-59); AST 39 U/L (15-37); Albumin 1.9 g/dL (3.4-5.0); Alkaline Phosphatase 124 U/L (46-116); Anion Gap 4.2 mmol/L (3-11); BUN 15 mg/dL (7-18); Bilirubin, Total 0.47 mg/dL (0.2-1.0); CO2 33.8 mmol/L (21.0-32.0); CREATININE 3.1 mg/dL (0.55-1.02); Calcium 8.5 mg/dL (8.5-10.1); Chloride 99 mmol/L (98-107); Estimated GFR 15.49 (mL/min/1.73m2); Glucose 87 mg/dL (74-106); Magnesium 1.7 mg/dL (1.8-2.4); Potassium 3.2 mmol/L (3.5-5.1); Sodium 137 mmol/L (136-145)
[2023-11-26 15:12] LABS: Prothrombin Time 10.5 sec (9.1-11.1)
[2023-11-26] MEDS: fentaNYL 100 MCG/2 ML VIAL 25 MCG IVP (16:06)
[2023-11-26] MEDS: Normal Saline Flush 10 ML SYR IVP (16:07)
--- NOTE | 2023-11-26 17:30 | DI.RAD_ITS ---
Exam(s) XR LUMBAR SPINE COMPLETE EXAM: XR LUMBAR SPINE COMPLETE CLINICAL HISTORY: Uprights, L4 compression fracture. TECHNIQUE: 2D digital imaging was performed. COMPARISON: No exams were available for comparison FINDINGS: Five views: There is a compression fracture at superior endplate of L4 with approximately 10-20 percent height lo ss. The posterior superior cortex of L4 exhibits some posterior bulging. At L2-3 level there is advanced asymmetric right greater than left disc space narrowing and anterolis thesis of L2 upon L3 which results in significant spinal canal stenosis at this level. These finding s at L2-3 level are not new. There is some multilevel facet arthropathy. IMPRESSION: L4 superior endplate compression fracture is described above. As seen on today's CT scan there is so me bulging of the posterior cortex at this level with some impression upon the thecal sac at this lev el. However, the most severe spinal canal stenosis is at the L2-3 level related to the anterolisthes is of L2 upon L3, short AP dimensions of the pedicles and annular bulging and facet arthropathy. DATA REPOSITORY: RADIATION DOSE DELIVERED:
[2023-11-26] MEDS: fentaNYL 100 MCG/2 ML VIAL 50 MCG IVP (17:50)
[2023-11-26] MEDS: Cyclobenzaprine 10 MG TAB 5 MG PO (19:24)
[2023-11-26] MEDS: oxyCODONE 5 MG TAB PO (19:24)
[2023-11-26] MEDS: Lidocaine 5% Patch 1 PATCH TP (19:24)
[2023-11-26] MEDS: Acetaminophen 325 MG TAB 650 MG PO (23:18)
[2023-11-27] VITALS (23 sets, daily range): BP systolic 82–122; BP diastolic 39–71; PULSE 58–88
--- NOTE | 2023-11-27 00:29 | ED.PROG_ITS ---
Date of service: 11/27/23 Time of Service: 00:00 Medical Decision Making This patient was signed out to me. Please see previous notes for H&P and initial eval. In brief, 73yo F presenting with right hip and back pain after a fall. CT with L4 superior endplate compression fracture, however patient unable to stand upright for plain films and unable to ambulate 2/t pain. Needs admission for pain control, PT/OT, upright film when able to tolerate. This is complicated by ESRD on dialysis M/W/F, last on W. No dialysis here at [facility] and [facility] multiple facilities were contacted with transfer requests however unable to identify accepting facility. Signed out with plan to remain in the ED overnight, multimodal pain control, plain films when able, PT/OT in the morning; reassess in the morning for potential transfer. On scheduled pain medication overnight. Subsequently able to stand at bedside with difficulty and significant pain. Will re-dose medication and send pt for upright plain films. Will be signed out to oncoming physician, plan to followup upright film, final spine recs, PT/OT eval. Quality:[facility] Health Related Social Needs: No Data to Display Sign Out Sign Out Data: Sign Out Comment: 73-year-old female patient with history of ESRD on hemodialysis Thursday, history of oxygen dependence, typically ambulates with walker, fell 1 week ago and sustained an L4 compression fracture with 20% height loss. Unable to stand due to pain for upright x-rays, will require admission for pain management, upright imaging, PT OT, nowhere is excepting tonight. Multimodal pain management ordered. Neurovascularly intact. Last updated by Radha Pierre MD at 11/26/23 23:12 Discharge Plan Discharge Details Chief Complaint: Orthopedic Primary Care Provider: Liliam Villanueva ED Provider: Danisha Horowitz Home Meds and New Rx's Prescriptions: No Action Trelegy Ellipta 100-62.5-25 mcg blister with device 1 inh INHALATION DAILY Rx Instructions: filled, Rx sent by [facility] insulin glargine 100 unit/mL solution 20 unit subcut QAM cyanocobalamin (vitamin B-12) 250 mcg tablet 500 mcg PO DAILY Patient Comments: TAKE ONE TABLET BY MOUTH EVERY DAY 08/19/23 Per PCP notes RH omega-3 fatty acids-fish oil [Fish Oil] 360-1,200 mg capsule 1 cap PO DAILY (DME) Oxygen Tank See Rx Instructions .ROUTE .MEDSUPPLY Qty: 1 Rx Instructions: As directed,2L with physical activity. melatonin 3 mg capsule 6 mg PO QHS polyethylene glycol 3350 [Miralax] 17 gram/dose powder 17 g PO DAILY albuterol sulfate 2.5 mg /3 mL (0.083 %) solution for nebulization See Rx Instructions inhalation Q4H PRN (Reason: shortness of breath or wheezing) Qty: 90 2RF Rx Instructions: BID & PRN SOB, per [facility] D/C (10/2023) inhaled every 4 hours PRN; amiodarone [Pacerone] 200 mg Tablet 200 mg PO DAILY Qty: 0 0RF Inhaler, Assist Devices [Pocket Chamber] 1 ea miscellaneous DIRECTED Qty: 0 0RF buspirone 7.5 mg tablet 7.5 mg PO BID Patient Comments: TAKE ONE TABLET BY MOUTH TWICE A DAY FOR ANXIETY TAKE REGULARILY FOR 2 WEEKS THEN CAN USE MORE NEEDED insulin glargine [Lantus Solostar U-100 Insulin] 100 unit/mL (3 mL) insulin pen 10 unit subcut DAILY lidocaine 5 % adhesive patch,medicated 1 patch topical DAILY Rx Instructions: leave on most painful area for up to 12 hrs Nicotrol 10 mg cartridge 10 mg inhalation DIRECTED PRN Rx Instructions: Q1-2Hrs escitalopram oxalate [Lexapro] 20 mg Tablet 20 mg PO DAILY albuterol sulfate [ProAir HFA] 90 mcg/actuation Hfa Aerosol Inhaler 2 puff Inhalation Q6H PRN PRN (DME) nebulizers [facility] See Dose Instructions .ROUTE .MEDSUPPLY Qty: 1 0RF Dose Instruction: As directed Rx Instructions: As directed rosuvastatin 10 mg tablet 10 mg PO DAILY Qty: 30 0RF Palmira-Frantz 0.8 mg tablet 1 tab PO DAILY Patient Comments: TAKE ONE TABLET BY MOUTH EVERY DAY acetaminophen 325 mg capsule 650 mg PO TID dextromethorphan-guaifenesin [Robitussin Cough-Chest Patricio DM] 5-100 mg/5 mL liquid 5 ml PO Q4H PRN ipratropium-albuterol 0.5 mg-3 mg(2.5 mg base)/3 mL solution for nebulization 3 ml inhalation Q4H PRN (Reason: wheezing) Rx Instructions: per [facility] med list, per NUrs[facility] rpt trazodone 50 mg tablet 50 mg PO QHS PRN
[2023-11-27] MEDS: Ketorolac 15 MG/ML VIAL IVP (00:54)
[2023-11-27] MEDS: oxyCODONE 5 MG TAB PO ×2 (00:54→05:49)
[2023-11-27] MEDS: Acetaminophen 325 MG TAB 650 MG PO (05:13)
--- NOTE | 2023-11-27 05:45 | DI.RAD_ITS ---
Exam(s) XR LUMBAR SPINE AP, LAT EXAM: XR LUMBAR SPINE AP, LAT CLINICAL HISTORY: compression fx, upright film. TECHNIQUE: 2D digital imaging was performed of the lumbar spine. Two images were obtained. AP and lateral views were obtained. COMPARISON: CR,XR XR CHEST 2V PA LATERAL from 01/12/2022 CR XR LUMBAR SPINE COMPLETE from 11/26/2023 FINDINGS: Upright AP and lateral views of the lumbar spine were obtained. BONES: There is again seen a compression fracture of the superior endplate of L4 with loss of approxi mately 20 percent of the height of the vertebral body anteriorly. Anterior osteophytes are seen at m ultiple levels of the lumbar spine. There are degenerative changes seen at the facets in the lower l umbar spine. DISKS: There is marked disc space narrowing at L2-L3. Mild disc space narrowing is seen at L3-L4 and L5-S1. ALIGNMENT: There is a left convex lumbar scoliosis. Grade 1 anterolisthesis of L2 on L3 is noted. N o spondylolysis is appreciated. SOFT TISSUE: Vascular calcifications are seen. IMPRESSION: 1. Stable appearance of the superior compression endplate fracture of L4. 2. Multilevel degenerative changes in the lumbar spine. DATA REPOSITORY: RADIATION DOSE DELIVERED:
--- NOTE | 2023-11-27 07:52 | ED.PROG_ITS ---
Date of service: 11/27/23 Time of Service: 07:52 Medical Decision Making I received signout on this 73-year-old dialysis dependent female found to have an L2 compression fracture following a fall with 20% height loss. She is due for dialysis today. Neurosurgery at [facility] has been consulted and has advised upright films. Patient's home medications have been ordered. She has been unable to stand for her upright films. Will continue to medicate and attempt to get patient to her films that she is due for dialysis at 11:30 AM this morning. 9:12 AM Patient was able to stand with physical therapy and complete upright x-rays. I spoke with Isabel from physical therapy who advised the patient would likely be nefit from home PT. Please see her note for details. I spoke with Bri Obrien from care management and she will help to arrange for home physical therapy. I signed the paper referral form. I reengaged with spine at [facility] but discharge patient prior to consultation as I did not want her to miss her dialysis appointment. I spoke to Isabel from PT. She needs a wheelchair to get her into the home w/RCT. Then she can use a walker to transfer. 10:36 AM I spoke with physician front desk assistant Michelle Torres from neurosurgery at [facility]. She will help to arrange outpatient neurosurgery follow-up in 6 weeks. She requested a TLSO brace. We unfortunately do not have this in the emergency department. I ordered this brace and home PT will have to help outfit the patient with this brace. Quality:[facility] Health Related Social Needs: No Data to Display Sign Out Sign Out Data: Sign Out Comment: 73-year-old female patient with history of ESRD on hemodialysis Thursday, history of oxygen dependence, typically ambulates with walker, fell 1 week ago and sustained an L4 compression fracture with 20% height loss. Unable to stand due to pain for upright x-rays, will require admission for pain management, upright imaging, PT OT, nowhere is excepting tonight. Multimodal pain management ordered. Neurovascularly intact. Last updated by Radha Pierre MD at 11/26/23 23:12 Sign Out Comment: 73yo F on HD M/W/F here with L4 compression fracture with 20% height loss, neurovascular intact, spine recommended upright plain films to eval for stability. Initially unable to stand, now improved pain control. Pending upright plain films, PT/OT, final spine recs. Last updated by Danisha Horowitz MD at 11/27/23 06:10 Discharge Plan Disposition Patient Disposition: Home Discharge Details Clinical Impression: Compression fracture of lumbar vertebra Primary Care Provider: Liliam Villanueva ED Provider: Kelvin Frey Home Meds and New Rx's Prescriptions: Continued Trelegy Ellipta 100-62.5-25 mcg blister with device 1 inh INHALATION DAILY Rx Instructions: filled, Rx sent by [facility] insulin glargine 100 unit/mL solution 20 unit subcut QAM cyanocobalamin (vitamin B-12) 250 mcg tablet 500 mcg PO DAILY Patient Comments: TAKE ONE TABLET BY MOUTH EVERY DAY 08/19/23 Per PCP notes RH omega-3 fatty acids-fish oil [Fish Oil] 360-1,200 mg capsule 1 cap PO DAILY (DME) Oxygen Tank See Rx Instructions .ROUTE .MEDSUPPLY Qty: 1 Rx Instructions: As directed,2L with physical activity. melatonin 3 mg capsule 6 mg PO QHS polyethylene glycol 3350 [Miralax] 17 gram/dose powder 17 g PO DAILY albuterol sulfate 2.5 mg /3 mL (0.083 %) solution for nebulization See Rx Instructions inhalation Q4H PRN (Reason: shortness of breath or wheezing) Qty: 90 2RF Rx Instructions: BID & PRN SOB, per [facility] D/C (10/2023) inhaled every 4 hours PRN; amiodarone [Pacerone] 200 mg Tablet 200 mg PO DAILY Qty: 0 0RF Inhaler, Assist Devices [Pocket Chamber] 1 ea miscellaneous DIRECTED Qty: 0 0RF buspirone 7.5 mg tablet 7.5 mg PO BID Patient Comments: TAKE ONE TABLET BY MOUTH TWICE A DAY FOR ANXIETY TAKE REGULARILY FOR 2 WEEKS THEN CAN USE MORE NEEDED insulin glargine [Lantus Solostar U-100 Insulin] 100 unit/mL (3 mL) insulin pen 10 unit subcut DAILY lidocaine 5 % adhesive patch,medicated 1 patch topical DAILY Rx Instructions: leave on most painful area for up to 12 hrs Nicotrol 10 mg cartridge 10 mg inhalation DIRECTED PRN Rx Instructions: Q1-2Hrs escitalopram oxalate [Lexapro] 20 mg Tablet 20 mg PO DAILY albuterol sulfate [ProAir HFA] 90 mcg/actuation Hfa Aerosol Inhaler 2 puff Inhalation Q6H PRN PRN (DME) nebulizers [facility] [place] [place] See Dose Instructions .ROUTE .MEDSUPPLY Qty: 1 0RF Dose Instruction: As directed Rx Instructions: As directed rosuvastatin 10 mg tablet 10 mg PO DAILY Qty: 30 0RF Palmira-Frantz 0.8 mg tablet 1 tab PO DAILY Patient Comments: TAKE ONE TABLET BY MOUTH EVERY DAY acetaminophen 325 mg capsule 650 mg PO TID dextromethorphan-guaifenesin [Robitussin Cough-Chest Patricio DM] 5-100 mg/5 mL liquid 5 ml PO Q4H PRN ipratropium-albuterol 0.5 mg-3 mg(2.5 mg base)/3 mL solution for nebulization 3 ml inhalation Q4H PRN (Reason: wheezing) Rx Instructions: per [facility] med list, per [facility] rpt trazodone 50 mg tablet 50 mg PO QHS PRN Discharge Instructions Instructions: Vertebral Compression Fracture (DC) Additional Instructions: You are seen in the emergency department for your back pain. You are found to have a compression fracture in your spine. Please return to the emergency department if you lose control of your bowels bladder if you develop weakness in your lower extremities or if you take any other falls. A referral for home physical therapy has been placed. For your pain please take medications as follows: 1. Take acetaminophen (Tylenol), 1,000 mg (two 500 mg tabs) every 6 hours Discharge Data Discharge Date/Time-TO BE ENTERED AT DEPARTURE: 11/27/23 10:24 Discharge Physician: Kelvin Frey
--- NOTE | 2023-11-27 08:28 | IN_ITS ---
PT Notes Visit Reasons: CALEX/hip pain DISCHARGE RECOMMENDATIONS: [] Home with no services [] [X] Home with services. Patient will benefit from home health PT services in order to progress mobility level using least restrictive assistive ambulatory device, assess home safety, identify additional equipment needs, and establish a functional maintenance program that will increase ability of patient to remain at home. [] Home with outpatient PT [] [] SNF for continued rehabilitation [] [] [facility] [] [] SNF versus LTC based on ability to participate and progress [] [X] Requires assist of 1 for all bed mobility and transfers using FWW. Only able to tolerate transfer steps, unable to walk household distances due to 9/10 pain. [X] Unable to tolerate upright sitting during dialysis treatment due to acute L4 compression fracture. Needs to be reclined to off load spine. Physical Therapy Inpatient Initial Evaluation Date: 11/27/2023 Referring Doctor: Danisha Horowitz MD PT Orders: PT CONSULT: Safety Consult for D/C Precautions: Fall. Standard. Activity as tolerated. Patient Profile/Admitting Diagnosis: Patient admitted for assessment of right hip and low back pain due to a mechanincal fall at home while unleashing her dog at home. Radiograph of the spine showed acute superior endplate compression fracture of the L4 vertebra with 20% height loss. PMHX: All Active Problems (Updated 11/06/23 @ 03:39 by Mazin Wagner DO) Acute GI bleeding (Acute) Hemorrhagic shock (Acute) Difficulty sleeping (Acute) Trazadone helped - [place] [facility] [place] Hospitalization within last 30 days (Acute) [facility] [place], w/o meds @ home (TBD).. Home via RCT. Family avble to help if/when called. Anxiety (Chronic) Hemodialysis patient (Acute) 08/19/23 Per PCP notes pt gets diaslysis at [facility] Hyperphosphatemia associated with renal failure (Acute) Right bundle branch block (Acute) Hypocalcemia (Acute) Uremia of renal origin (Acute) High anion gap metabolic acidosis (Acute) Hyperkalemia (Acute) Hyponatremia (Acute) Leukocytosis (Acute) Diabetes (Chronic) Acute on chronic respiratory failure with hypoxia (Acute) Acute on chronic kidney failure (Acute) CAP (community acquired pneumonia) (Acute) Acute on chronic renal insufficiency (Acute) Sepsis (Acute) Aortic stenosis (Chronic) Obesity (Chronic) HLD (hyperlipidemia) (Acute) Hypomagnesemia (Acute) Acute kidney injury superimposed on chronic kidney disease (Acute) Acute on chronic respiratory failure with hypoxia (Acute) Tick bite (Acute) Parainfluenza (Acute) Type II diabetes mellitus (Acute) COPD exacerbation (Acute) Acute hyperkalemia (Acute) Pneumonia (Acute) Acute exacerbation of chronic obstructive pulmonary disease (Acute) Hypoxia (Acute) Abnormal ECG (Acute) Weakness (Acute) Diarrhea (Acute) Congestive heart failure (Chronic) Shortness of breath (Acute) Medication monitoring encounter (Acute) Tubular adenoma of colon (Acute) Diverticulosis (Chronic) Colon polyps (Chronic) Anemia (Chronic) Pleural effusion (Acute) Tobacco abuse (Chronic) Depression (Chronic) Hypertension (Chronic) Dental abscess (Acute) COPD (chronic obstructive pulmonary disease) (Chronic) Personal history of nicotine dependence (Acute) Right ankle injury (Acute) Anemia (Chronic) Medical History Pneumonia Afib 08/19/23 Per PCP notes on aiodarone RH Paroxysmal atrial flutter On supplemental oxygen therapy on O2 of night. Is able to lay flat CKD (chronic kidney disease) stage 3, GFR 30-59 ml/min Pt. denies Diabetes mellitus 10/21/21 [facility] visit not well controlled, A1C 8.2 Discharge planning issues Diabetes mellitus Surgical History History of colonoscopy (~12/2021) Hx of hernia repair Social History/Home Situation: Lives with grandson who works during the day. Has a daughter and granddaughter who lives close by. Modified independent with a front-wheeled walker prior to admission. On chronic oxygen supplementation prior to admission Equipment Owned/DME: FWW Subjective: Feels weak. Complains of pain at 7/10 in the low back that goes up to 9/10 with weight bearing. Could not tolerate sitting for more that 10 minutes, patient complained of pain in low back at 10/10 while being x-rayed in standing and sitting. Dizzy and anxious about falling again. Unsure if she has help at home as her grandson works during the day and her daughter and granddaughter do not camille with her. Objective: General Observation: Anxious about how she is going to have dialysis done today. Oxygen Mental Status: Alert and oriented as to person, place, time, and purpose. Able to pay attention, focus, and respond appropriately. Pain: up to 10/10 with weight bearing and movement Vital Signs: Soft intially but went up to 110/50s after session with PT per Nurse Lomeli ROM: Right Lower Extremity: Hip flexion WFL. Hip abduction WFL. Knee flexion WFL. Ankle dorsiflexion WFL. Ankle plantarflexion WFL. Left Lower Extremity: Hip flexion WFL. Hip abduction WFL. Knee flexion WFL. Ankle dorsiflexion WFL. Ankle plantarflexion WFL. Strength: Right Lower Extremity: Hip flexors 3/5. Hip abductors 3/5. Knee flexors 4-/5. Knee extensors 4-/5. Ankle dorsiflexors 4-/5. Ankle plantarflexors 4-/5. Left Lower Extremity: Hip flexors 3/5. Hip abductors 3/5. Knee flexors 4-/5. Knee extensors 4-/5. Ankle dorsiflexors 4-/5. Ankle plantarflexors 4-/5. Bed Mobility/Transfers: Moderate cueing provided for use of B hands as needed for support, movement sequence, AD management, and posture to reduce fall risk and minimize pain report Rolling moderate assist Supine to sit moderate assist Sit to supine moderate assist Sit to stand contact guard assist with FWW Stand to sit contact guard assist with FWW Bed to transport stand by assist with FWW Reclining chair to bed stand by assist with FWW Gait: Only able to tolerate transfer steps only of up to 5-6 steps before pain become uncontrollable. FWW with stand by assist. Pain level went up to 10/10 with sit to supine. Balance: Static Sitting: Fair Dynamic Sitting: Poor Static Standing: Fair Dynamic Standing: Poor teeth Special Tests: Mobility Limitations Standardized Measure [facility] AM-PAC 6 clicks Basic Mobility Inpatient Short Form: Raw Score: 18 CMS Score: 47% deficit Informed Consent/Education: Patient was instructed in purpose of PT consult and plan of care. Agreeable to proceed with established PT POC to achieve personal goals. Assessment: Highly irritable pain level due to acute L4 superior endplate compression fracture. Unable to tolerate prolonged sitting which can make dialysis treatment difficult, may do well in reclined position. Requires assistance of 1 for all tansfers for safety due to pain spikes, able to do stand by assist when pain is managed well. Needs moderate assist for supine<>sit movement transitions. Patient presents with clinical signs and symptoms consistent with current/admitting diagnoses that have resulted to mobility limitations, gait instability, generalized weakness, and overall ADL decline as demonstrated by the following impairment level findings: 1. Decreased strength to B UE/LE major muscle groups 2. Impaired sitting/standing balance 3. Impaired activity tolerance 4. Limitation of joint range of motion in low back 5. Pain at 10/10 with movement 6. Anxiety and fearfulness of falling Impairments are contributing to the following functional limitations: 1. Decline in bed mobility skills 2. Decline in transfer skills 3. Difficulty with ambulation without assistive device and physical assistance 4. Increased completion time for mobility ADL performance 5. Increased risk for falls 6. Difficulty with managing steps alone safely Patient is assessed as a complexity based on the following: History: 73-year-old female with past medical history as indicated above Examination: Demonstrable impairment in strength, balance, and mobility level with underlying impairments and functional limitations as exhibited above as well as deficit score of 47% utilizing the [facility] Mobility Inpatient Short Form Presentation: Evolving Decision Makin moderate complexity Goals: Goals X1 week 1. Supine-Sit independent 2. Sit-Supine independent 3. Sit-Stand independent 4. Stand-Sit independent with FWW 5. Bed-Chair independent with FWW 6. Chair-Bed independent with FWW 7. Independent gait on level surface with use of FWW for at least 150 feet without report of pain nor dyspnea 8. Good static and dynamic standing balance/tolerance Plan of Care/Treatment Plan: 1-2x/day, 7 days/week x 1 week. Plan of care has been reviewed with the COMPUTER ASSISTANT providing the service under Physical Therapy direction. Initiate Physical Therapy intervention for pain management as needed, strengthening, bed mobility, transfers, gait, stairs, balance training, and use of assistive device. DISCHARGE RECOMMENDATIONS: [] Home with no services [] [X] Home with services. Patient will benefit from home health PT services in order to progress mobility level using least restrictive assistive ambulatory device, assess home safety, identify additional equipment needs, and establish a functional maintenance program that will increase ability of patient to remain at home. [] Home with outpatient PT [] [] SNF for continued rehabilitation [] [] Longterm Care [] [] SNF versus LTC based on ability to participate and progress [] [X] Requires assist of 1 for all transfers using FWW [X] Unable to tolerate upright positioning during dialysis treatment. Needs to be reclined to offloaf l$ compression frcature. TREATMENT CODE/TIME: 60861 x 20 minutes for 1 unit, 20348 x 18 minutes for 1 unit (8:28-9:06). Thank you for the opportunity to participate in the care of this patient. Neelam Gan PT, DPT, CLT [facility] [place], [place]
[2023-11-27] MEDS: Insulin Glargine 300 UNITS/3 ML PEN 20 UNITS SC (09:06)
[2023-11-27] MEDS: Amiodarone 200 MG TAB PO (09:06)
--- NOTE | 2023-11-27 09:34 | NUR.NOTE ---
Faxed to [facility] provider notes and labs. Nursing Note:
--- NOTE | 2023-11-27 18:00 | PDOC.CMPRO ---
Date of service: 11/27/23 Time of Service: 18:00 Care Management Progress Note Progress Note Text Progress Note Text: CM was consulted to meet with Shira today in the ED; she was being discharged and going to her dialysis appt in [place], [place], but she was worried about getting back inside her home. Shira was lying in bed when CM met with her. She stated that she has been in the ED overnight, and expressed a lot of concern about being able to walk into her home later this afternoon when her dialysis was complete. She appeared anxious and upset. CM discussed that the ED staff can help support her into the RCT car that would transport her to her appt, and then when she arrived, there would be staff to help her into the building, and could meet her with a wheelchair (her dialysis center was notified of this request). CM also stated that if she needs help getting into her home, she can request a lift assist from local fire dept/EMS. Shira stated that she would benefit from having a wheelchair; CM stated that her PCP may be able to order her a w/c, if she qualifies, but there are community resources from which she may be able to borrow a w/c. Shira stated that her daughter, Effie, may be able to help her with this, and asked that CM contact her to let her know. CM called Effie and spoke to her at length about her mother's situation. Effie is very supportive, as are Effie's children, one of whom lives with her. CM discussed resources in the community with Effie that may benefit Shira, such as COA and Palliative care. Effie felt that her mother would also benefit, and be happy to have more support, knowing that her mother wants to stay home as long as she can; CM sent referrals to both. Effie agreed to meet Shira at her home when she arrives after her dialysis appt to help her in the home. spoke to [facility] Neurosurgery about Shira's compression fracture, who recommended a back brace, which [facility] did not have in stock; one was ordered by the ED, and will arrive on Thursday. CM informed Effie of this pending order, and she agreed to pick it up from the ED once it arrives. SDOH(Care Management) Screening Will the Patient Participate in the Screening?: Unable to obtain
== END 2023-11-27 10:24 | disposition home or self-care (01) ==
PROVIDERS: Emergency Medicine; Emergency Provider Emergency Medicine; PCP Nurse Practitioner Family
DX: S32.040A Wedge compression fracture of fourth lumbar vertebra, initial encounter for closed fracture (principal); M25.551 Pain in right hip; M54.50 Low back pain, unspecified; Z99.2 Dependence on renal dialysis; W19.XXXA Unspecified fall, initial encounter
CPT/HCPCS: 00123; 36415; 36416; 80048; 80053; 82962; 96374; 96375; 96376; 99285; 72100; 72110; 72131; 72192; 83735; 85025; 85610; J0131; J1815; J1885; J3010

== ENCOUNTER 2023-12-15 15:32 | Emergency (ER) | payer MEDICARE, SELFPAY ==
[2023-12-15] VITALS (47 sets, daily range): BP systolic 99–145; BP diastolic 54–106; PULSE 55–68; RESP 14–20; TEMP 36.4–36.7; O2SAT 76–100
--- NOTE | 2023-12-15 15:51 | W.ED.GENAD ---
Discharge Plan Disposition Patient Disposition: Home Condition: Stable Discharge Details Clinical Impression: Complication associated with dialysis catheter, Hypokalemia, COVID-19 Primary Care Provider: Liliam Villanueva ED Provider: Mazin Friedman Home Meds and New Rx's Prescriptions: Continued Trelegy Ellipta 100-62.5-25 mcg blister with device 1 inh INHALATION DAILY Rx Instructions: filled, Rx sent by [facility] cyanocobalamin (vitamin B-12) 250 mcg tablet 500 mcg PO DAILY Patient Comments: TAKE ONE TABLET BY MOUTH EVERY DAY 08/19/23 Per PCP notes RH omega-3 fatty acids-fish oil [Fish Oil] 360-1,200 mg capsule 1 cap PO DAILY (DME) Oxygen Tank See Rx Instructions .ROUTE .MEDSUPPLY Qty: 1 Rx Instructions: As directed,2L with physical activity. melatonin 3 mg capsule 6 mg PO QHS polyethylene glycol 3350 [Miralax] 17 gram/dose powder 17 g PO DAILY albuterol sulfate 2.5 mg /3 mL (0.083 %) solution for nebulization See Rx Instructions inhalation Q4H PRN (Reason: shortness of breath or wheezing) Qty: 90 2RF Rx Instructions: BID & PRN SOB, per [facility] D/C (10/2023) inhaled every 4 hours PRN; amiodarone [Pacerone] 200 mg Tablet 200 mg PO DAILY Qty: 0 0RF Inhaler, Assist Devices [Pocket Chamber] 1 ea miscellaneous DIRECTED Qty: 0 0RF buspirone 7.5 mg tablet 7.5 mg PO BID Patient Comments: TAKE ONE TABLET BY MOUTH TWICE A DAY FOR ANXIETY TAKE REGULARILY FOR 2 WEEKS THEN CAN USE MORE NEEDED insulin glargine [Lantus Solostar U-100 Insulin] 100 unit/mL (3 mL) insulin pen 10 unit subcut DAILY lidocaine 5 % adhesive patch,medicated 1 patch topical DAILY Rx Instructions: leave on most painful area for up to 12 hrs Nicotrol 10 mg cartridge 10 mg inhalation DIRECTED PRN Rx Instructions: Q1-2Hrs escitalopram oxalate [Lexapro] 20 mg Tablet 20 mg PO DAILY albuterol sulfate [ProAir HFA] 90 mcg/actuation Hfa Aerosol Inhaler 2 puff Inhalation Q6H PRN PRN (DME) nebulizers mis See Dose Instructions .ROUTE .MEDSUPPLY Qty: 1 0RF Dose Instruction: As directed Rx Instructions: As directed rosuvastatin 10 mg tablet 10 mg PO DAILY Qty: 30 0RF Palmira-Frantz 0.8 mg tablet 1 tab PO DAILY Patient Comments: TAKE ONE TABLET BY MOUTH EVERY DAY acetaminophen 325 mg capsule 650 mg PO TID ipratropium-albuterol 0.5 mg-3 mg(2.5 mg base)/3 mL solution for nebulization 3 ml inhalation Q4H PRN (Reason: wheezing) Rx Instructions: per [facility] med list, per [facility] rpt trazodone 50 mg tablet 50 mg PO QHS PRN Discharge Instructions Instructions: Hypokalemia, COVID-19 ED, Hemodialysis catheter placement, How to care for a hemodialysis catheter Additional Instructions: You were seen in the emergency department for the accidental removal of your dialysis Port-A-Cath in the right chest. Incidentally you have had a cold or cough for the past week and you are found to have COVID-19. He had mildly low potassium, I consulted with [facility] nephrology, they have placed a stat order for you to have a tunnel dialysis catheter placed-you will need to call their office and or interventional radiology office in the morning during business hours to see when they have scheduled the surgery, you need to obtain transportation to [facility] to have this performed and then return [address] [place] [address] for your dialysis needs. The [place] nephrology office number is [phone] The interventional radiology office number is [phone] Referrals: [facility] [Outside] Liliam Villanueva [Primary Care Provider] - HPI General Date/Time Provider Initiated Documentation: 12/15/23 15:39. HPI Narrative: 73 year-old female presents to ED today by EMS with a chief complaint of dialysis port in R chest had come dislodged when HomeHealth had taken out stiches today. Patient states she went to sleep and must've rolled over onto it and it ripped out, has bandages in place over R chest where it came dislodged. Quality described as not painful, does endorse a cough over the last week, and a lump at her xiphoid that's been ongoing for an unknown amount of time, no radiation to shortness of breath, chest pain, fever, abdominal pain, states poor appetite. Severity is described as mild. Palliating factors include nothing specific attempted. Provoking factors include nothing specific. Events leading up to the incident/Associated Symptoms: This is the third time her port has been moved, she has not had a fistula established yet. [facility] manages her ports, dialysis at [facility] - last had dialysis yesterday. Patient not anticoagulated. Related Data Home Medications ?Medication ?Instructions ?Recorded ?Confirmed albuterol sulfate 90 mcg/actuation 2 puff inhalation Q6H PRN PRN 11/25/17 12/15/23 aerosol inhaler (ProAir HFA) escitalopram oxalate 20 mg tablet 20 mg PO DAILY 11/25/17 12/15/23 (Lexapro) nebulizers #1 ea 11/30/17 11/26/23 Oxygen #1 ea 10/25/20 11/26/23 Inhaler, Assist Devices [Pocket 1 ea miscellaneous DIRECTED ##0 01/23/22 12/15/23 Chamber] amiodarone 200 mg tablet (Pacerone) 200 mg PO DAILY #0 tabs 01/23/22 12/15/23 rosuvastatin 10 mg tablet 10 mg PO DAILY #30 tabs 01/27/23 12/15/23 cyanocobalamin (vitamin B-12) 250 500 mcg PO DAILY 08/19/23 12/15/23 mcg tablet omega-3 fatty acids-fish oil 360 1 cap PO DAILY 08/19/23 12/15/23 mg-1,200 mg capsule (Fish Oil) melatonin 3 mg capsule 6 mg PO QHS 08/20/23 12/15/23 polyethylene glycol 3350 17 17 g PO DAILY 08/20/23 12/15/23 gram/dose oral powder (Miralax) albuterol sulfate 2.5 mg/3 mL See Rx Instructions inhalation Q4H 10/31/23 12/15/23 (0.083 %) solution for nebulization PRN shortness of breath or wheezing #90 mL fluticasone fur. 100 mcg-umeclid 1 inh inhalation DAILY 10/31/23 12/15/23 62.5 mcg-vilant 25 mcg inhalat.powder (Trelegy Ellipta) acetaminophen 325 mg capsule 650 mg PO TID 11/06/23 12/15/23 ipratropium 0.5 mg-albuterol 3 mg 3 ml inhalation Q4H PRN wheezing 11/06/23 12/15/23 (2.5 mg base)/3 mL nebulization soln trazodone 50 mg tablet 50 mg PO QHS PRN 11/06/23 12/15/23 vitamin B complex-vitamin C-folic 1 tab PO DAILY 11/06/23 12/15/23 acid 0.8 mg tablet (Palmira-Frantz) buspirone 7.5 mg tablet 7.5 mg PO BID 11/26/23 12/15/23 insulin glargine 100 unit/mL (3 10 unit subcut DAILY 11/26/23 12/15/23 mL) subcutaneous pen (Lantus Solostar U-100 Insulin) lidocaine 5 % topical patch 1 patch topical DAILY 11/26/23 12/15/23 nicotine 10 mg inhalation 10 mg inhalation DIRECTED PRN 11/26/23 12/15/23 cartridge (Nicotrol) Previous Rx's ?Medication ?Instructions ?Recorded nebulizers #1 ea 11/30/17 Inhaler, Assist Devices [Pocket 1 ea miscellaneous DIRECTED ##0 01/23/22 Chamber] amiodarone 200 mg tablet (Pacerone) 200 mg PO DAILY #0 tabs 01/23/22 rosuvastatin 10 mg tablet 10 mg PO DAILY #30 tabs 01/27/23 albuterol sulfate 2.5 mg/3 mL See Rx Instructions inhalation Q4H 10/31/23 (0.083 %) solution for nebulization PRN shortness of breath or wheezing #90 mL Allergies Allergy/AdvReac Type Severity Reaction Status Date / Time codeine Allergy Mild Other (See Verified 12/15/23 16:24 Comment) fluticasone (From Advair Allergy Mild Other (See Verified 12/15/23 16:24 Diskus) Comment) salmeterol (From Advair Allergy Mild Other (See Verified 12/15/23 16:24 Diskus) Comment) Sulfa (Sulfonamide Allergy Mild Unknown Verified 12/15/23 16:24 Antibiotics) sulfasalazine AdvReac Intermediate Other (See Verified 12/15/23 16:24 Comment) General Stated Complaint: GenMedical VIYR: 3 Review of Systems All systems reviewed & are unremarkable except as noted in HPI and below Exam Narrative Exam Narrative: GENERAL APPEARANCE: Morbid obesity, non-toxic, awake and alert, atraumatic, no acute distress. SKIN: Warm, pink, dry, intact, without rashes/lesions/ulcerations. HEAD: Normocephalic, atraumatic, normal hair distribution for gender/age. EYES: Normal conjunctiva, no exudates on lids/lashes. ENT: Nares patent, no circumoral cyanosis, no facial swelling NECK: Supple, trachea midline, painless cervical ROM. LUNGS/CHEST: Lungs - diffuse rhonchi, difficult auscultation due to body habitus, non-labored respirations on baseline O2 by NC, normal A/P diameter, symmetrical expansion, no chest wall deformity, bandaged R chest where port was accidentally removed in her sleep- no active bleeding. HEART (CV/PV): Regular rate and rhythm without murmur, no peripheral edema, no JVD. ABDOMEN: Soft, non-distended, no guarding, no tenderness. MSK: Normal ROM, no swelling/deformity to bilateral UEs or LEs, moving all extremities without weakness, no cyanosis, spine midline without tenderness, normal curvature. NEURO: Mental Status AAOx4 - alert to person, place, time, events No facial droop, no forehead involvement. Motor: No focal weakness - strength 5/5 in bilateral UEs and LEs, proximal and distal, symmetric. Sensory: sensation intact to light touch globally. Gait NT. PSYCH: euthymic, cooperative, pleasant, appropriate speech Course Vital Signs Vital signs: Vital Signs Temperature 36.4 C L 12/15/23 15:37 Pulse 62 12/15/23 15:37 Respiratory Rate 20 12/15/23 15:37 Blood Pressure 136/90 12/15/23 15:37 Pulse Oximetry 100 12/15/23 15:37 Temperature 36.4 C L 12/15/23 15:45 Temperature Source Oral 12/15/23 15:45 Pulse 62 12/15/23 15:45 Respiratory Rate 20 12/15/23 15:45 Blood Pressure 136/90 12/15/23 15:45 Blood Pressure Position Sitting 12/15/23 15:45 Pulse Oximetry 100 12/15/23 15:45 Oxygen Delivery Method Room Air 12/15/23 15:45 Oxygen Flow Rate 0 12/15/23 15:37 Pain Level 2 12/15/23 15:37 Comment Chronic pain in hip 12/15/23 15:37 Medical Decision Making This dictation utilizes [id number] dictation software and may contain unedited grammatical errors. 73 year-old female presents to ED today by EMS with a chief complaint of dialysis port in R chest had come dislodged when HomeHealth had taken out stiches today. Patient states she went to sleep and must've rolled over onto it and it ripped out, has bandages in place over R chest where it came dislodged. Quality described as not painful, does endorse a cough over the last week, and a lump at her xiphoid that's been ongoing for an unknown amount of time, no radiation to shortness of breath, chest pain, fever, abdominal pain, states poor appetite. Severity is described as mild. Palliating factors include nothing specific attempted. Provoking factors include nothing specific. Events leading up to the incident/Associated Symptoms: This is the third time her port has been moved, she has not had a fistula established yet. [facility] manages her ports, dialysis at [facility] - last had dialysis yesterday. Patients' medical history: Atrial fibrillation with paroxysmal atrial flutter, history of pneumonia, diabetes mellitus, morbid obesity, home O2 use, COPD. Family and social history: Lives at home, has Home Health no exercise regimen. Pertinent exam findings / vital signs include morbid obesity, rhonchorous lungs on baseline O2, benign abdomen, nontoxic vitals, afebrile. Differential / pathologies of concern include pneumonia, respiratory infection, port problem, electrolyte abnormality, renal failure, need for dialysis. Diagnostic studies of: -CBC, CMP, Covid/Flu/RSV PCR, CT Chest wo Contrast. -CBC shows leukopenia, no anemia, PLTs 113 -CMP shows K+ of 2.9, SCr 3.1 (chronic), Ca+ 7.9 -Covid PCR positive, adding rapid ag to see if contagious- Rapid Ag is positive -CT chest shows no acute pathology Interventions of: -Consult [facility] Nephrology Dr. Humphries @ 2008 - he will order a stat tunnel cath, directs patient to call Nephro/IR offices tomorrow for updates, likely tunnel cath at [facility] within 24-48 hours. He was consulted on patients K+ of 2.9, states one dose 40mEq is OK. ED Course/Assessment/Plan: 73-year-old female presents by EMS for accidentally ripping out her right chest cath that was being used for dialysis at [facility], she last had dialysis yesterday, she has had some tunnel cath problems and has been seen at [facility] over the summer. I did consult with [facility] nephrology and they will order a stat catheter placement for dialysis as she likely needs dialysis within a couple days, the patient's daughter is able to drive her there, I did advise of incidental COVID-19 positive status to both daughter and [facility]. Patient was not hypoxic and not in any respiratory distress, her creatinine has baseline, she had mild hypokalemia which I did provide a dose of 40 mill equivalents of potassium cleared by nephrology, patient will likely receive dialysis from inpatient at [facility] before returning home to continue dialysis at [facility]. Findings not consistent with hypoxic respiratory failure, emergent dialysis need. Disposition of Complication Associated with Dialysis Catheter, Hypokalemia, Covid-19 Patient verbalized understanding of the plan and return to ED criteria and engaged in shared decision making. Medical Records Medical records reviewed: Yes I reviewed the patient's medical records. Imaging Data Radiologic Study: Attestation: I personally reviewed and interpreted this imaging study as follows: Imaging: CT Scan Radiologist's impression: EXAM: CT CHEST WO CLINICAL HISTORY: cough, soft tissue lump at xiphoid. TECHNIQUE: Multi planar reconstructions were performed. CONTRAST MATERIAL: None COMPARISON: CT CT CHEST PE CTA from 09/22/2023 FINDINGS: CHEST: LUNGS: There is some platelike atelectasis in the lingular segment of the left lung. No confluent infiltrates evident. No ominous left lung nodules. Also no significant right lung nodules. No pleural effusions on either side. No significant focal findings in the trachea and mainstem bronchi. MEDIASTINUM: There is no obvious hilar nor mediastinal adenopathy. No subcarinal adenopathy. No axillary adenopathy. CARDIAC: Heart size is upper normal. There is no pericardial effusion.Caliber of the thoracic aorta is within normal limits. VISUALIZED UPPER ABDOMEN:Right adrenal gland unremarkable. Entire left adrenal gland is not included in the field of view of this chest study. Small cyst in the superior pole of right kidney noted measuring 1.6 x 1.5 cm. Please note that this is difficult to evaluate as it is not completely included in the field of view and this is a noninfused study. OSSEOUS: No fractures. No significant osseous lesions. No significant masses at the tip of the xiphoid process, as per request.. IMPRESSION: 1. No significant pulmonary findings nor pleural effusions nor intrathoracic adenopathy. 2. No fractures nor significant osseous lesions. The area of clinical concern in the inferior aspect of the xiphoid process appears within normal limits. Lab Data Lab results reviewed: Yes I reviewed the patient's lab results. Labs: Laboratory Tests Range/Units 12/15/23 12/15/23 15:57 16:15 WBC (4.4-10.8) 10^3/uL 4.10 L RBC (3.93-5.22) 10^6/uL 3.96 Hgb (11.2-15.7) g/dL 11.9 Hct (36.0-46.0) % 39.0 MCV (80-95) fL 99 H MCH (27.0-33.0) pg 30.1 MCHC (32.0-36.0) % 30.5 L RDW (11.7-14.6) % 18.0 H Plt Count (130-400) 10^3/uL 113 L MPV (8.0-11.0) fL 8.4 Immature Gran % % 0.2 Neutrophils % % 81.3 Lymphocytes % % 10.2 Monocytes % % 7.3 Eosinophils % % 0.5 Basophils % % 0.5 Nucleated RBC % (0.0-0.3) % 0.0 Absolute Neutrophils (1.2-6.7) 10^3/uL 3.33 Absolute Lymphocytes (1.2-3.4) 10^3/uL 0.42 L Absolute Monocytes (0.1-0.8) 10^3/uL 0.30 Absolute Eosinophils (0.0-0.7) 10^3/uL 0.02 Absolute Basophils (0.0-0.2) 10^3/uL 0.02 Sodium (136-145) mmol/L 138 Potassium (3.5-5.1) mmol/L 2.9 L* Chloride (98-107) mmol/L 100 Carbon Dioxide (21.0-32.0) mmol/L 33.0 H Anion Gap (3-11) mmol/L 5.0 BUN (7-18) mg/dL 20 H Creatinine (0.55-1.02) mg/dL 3.1 H Est GFR (CKD-EPI 2020) (mL/min/1.73m2) 15.49 Glucose (74-106) mg/dL 134 H Calcium (8.5-10.1) mg/dL 7.9 L Total Bilirubin (0.2-1.0) mg/dL 0.36 AST (15-37) U/L 60 H ALT (14-59) U/L 30 Alkaline Phosphatase (46-116) U/L 146 H Total Protein (6.4-8.2) g/dL 5.5 L Albumin (3.4-5.0) g/dL 1.8 L COVID-19 Source NASOPHARYNX SARS-CoV-2 (PCR) (Negative) Positive A Influenza Type A (PCR) (Negative) Negative Influenza Type B (PCR) (Negative) Negative RSV (PCR) (Negative) Negative Quality:SDOH Health Related Social Needs: No Data to Display PFSH All Active Problems (Updated 12/15/23 @ 22:34 by TAMIKO Rowe) COVID-19 (Acute) Hypokalemia (Acute) Complication associated with dialysis catheter (Acute) Compression fracture of lumbar vertebra (Acute) Difficulty sleeping (Acute) Trazadone helped - started @ [facility] hospitalization? Hospitalization within last 30 days (Acute) [facility] D/C, 10/30/23, w/o meds @ home (TBD).. Home via RCT. Family avble to help if/when called. Anxiety (Chronic) Hemodialysis patient (Acute) 08/19/23 Per PCP notes pt gets diaslysis at [facility] Hyperphosphatemia associated with renal failure (Acute) Right bundle branch block (Acute) Hypocalcemia (Acute) Uremia of renal origin (Acute) High anion gap metabolic acidosis (Acute) Hyperkalemia (Acute) Hyponatremia (Acute) Leukocytosis (Acute) Diabetes (Chronic) Acute on chronic respiratory failure with hypoxia (Acute) Acute on chronic kidney failure (Acute) CAP (community acquired pneumonia) (Acute) Acute on chronic renal insufficiency (Acute) Sepsis (Acute) Aortic stenosis (Chronic) Obesity (Chronic) HLD (hyperlipidemia) (Acute) Hypomagnesemia (Acute) Acute kidney injury superimposed on chronic kidney disease (Acute) Acute on chronic respiratory failure with hypoxia (Acute) Tick bite (Acute) Parainfluenza (Acute) Type II diabetes mellitus (Acute) COPD exacerbation (Acute) Acute hyperkalemia (Acute) Pneumonia (Acute) Acute exacerbation of chronic obstructive pulmonary disease (Acute) Hypoxia (Acute) Abnormal ECG (Acute) Weakness (Acute) Diarrhea (Acute) Congestive heart failure (Chronic) Shortness of breath (Acute) Medication monitoring encounter (Acute) Tubular adenoma of colon (Acute) Diverticulosis (Chronic) Colon polyps (Chronic) Anemia (Chronic) Pleural effusion (Acute) Tobacco abuse (Chronic) Depression (Chronic) Hypertension (Chronic) Dental abscess (Acute) COPD (chronic obstructive pulmonary disease) (Chronic) Personal history of nicotine dependence (Acute) Right ankle injury (Acute) Anemia (Chronic) Medical History Pneumonia Afib 08/19/23 Per PCP notes on aiodarone RH Paroxysmal atrial flutter On supplemental oxygen therapy on O2 of night. Is able to lay flat CKD (chronic kidney disease) stage 3, GFR 30-59 ml/min Pt. denies Diabetes mellitus 10/21/21 On License Of [facility] visit not well controlled, A1C 8.2 Discharge planning issues Diabetes mellitus Surgical History History of colonoscopy (~12/2021) Hx of hernia repair Social History Smoking/Tobacco Use Status: Former Tobacco Use Quit Date: 03/23/18 Tobacco: How many years used: 65 Smoking risk assessment performed?: Yes Alcohol Intake: current Alcohol Intake frequency: holidays/special occasions only Drug use: Never Substance use type: does not use Housing: house Do you feel safe at home: Yes Do you feel safe in your relationship?: Yes
[2023-12-15 16:22] LABS: Abs Immature Grans 0.01 10^3/uL (0.0-0.06); Absolute Basophil Count 0.02 10^3/uL (0.0-0.2); Absolute Eosinophil Count 0.02 10^3/uL (0.0-0.7); Absolute Lymphocyte Count 0.42 10^3/uL (1.2-3.4); Absolute Neutrophil Count 3.33 10^3/uL (1.2-6.7); Basophils % 0.5 %; Eosinophils % 0.5 %; HGB 11.9 g/dL (11.2-15.7); Immature Grans % 0.2 %; Lymphocytes % 10.2 %; MCH 30.1 pg (27.0-33.0); MCHC 30.5 % (32.0-36.0); MCV 99 fL (80-95); MPV 8.4 fL (8.0-11.0); Monocytes % 7.3 %; Neutrophils % 81.3 %; Platelet Count 113 10^3/uL (130-400); RBC 3.96 10^6/uL (3.93-5.22); RDW-SD 64.4 fL
[2023-12-15 16:36] LABS: ALT 30 U/L (14-59); AST 60 U/L (15-37); Albumin 1.8 g/dL (3.4-5.0); Alkaline Phosphatase 146 U/L (46-116); BUN 20 mg/dL (7-18); Bilirubin, Total 0.36 mg/dL (0.2-1.0); CREATININE 3.1 mg/dL (0.55-1.02); Calcium 7.9 mg/dL (8.5-10.1); Chloride 100 mmol/L (98-107); Estimated GFR 15.49 (mL/min/1.73m2); Glucose 134 mg/dL (74-106); Sodium 138 mmol/L (136-145); Total Protein 5.5 g/dL (6.4-8.2)
[2023-12-15 16:38] LABS: Potassium 2.9 mmol/L (3.5-5.1)
[2023-12-15 16:46] LABS: Influenza A PCR Negative (Negative); Influenza B PCR Negative (Negative); RSV PCR Negative (Negative)
[2023-12-15 16:49] LABS: COVID-19 PCR Positive (Negative); Source NASOPHARYNX
--- NOTE | 2023-12-15 18:31 | DI.CT_ITS ---
Exam(s) CT CHEST WO EXAM: CT CHEST WO CLINICAL HISTORY: cough, soft tissue lump at xiphoid. TECHNIQUE: Multi planar reconstructions were performed. CONTRAST MATERIAL: None COMPARISON: CT CT CHEST PE CTA from 09/22/2023 FINDINGS: CHEST: LUNGS: There is some platelike atelectasis in the lingular segment of the left lung. No confluent in filtrates evident. No ominous left lung nodules. Also no significant right lung nodules. No pleura l effusions on either side. No significant focal findings in the trachea and mainstem bronchi. MEDIASTINUM: There is no obvious hilar nor mediastinal adenopathy. No subcarinal adenopathy. No axi llary adenopathy. CARDIAC: Heart size is upper normal. There is no pericardial effusion.Caliber of the thoracic aorta is within normal limits. VISUALIZED UPPER ABDOMEN:Right adrenal gland unremarkable. Entire left adrenal gland is not included in the field of view of this chest study. Small cyst in the superior pole of right kidney noted romulo suring 1.6 x 1.5 cm. Please note that this is difficult to evaluate as it is not completely included in the field of view and this is a noninfused study. OSSEOUS: No fractures. No significant osseous lesions. No significant masses at the tip of the xiph oid process, as per request.. IMPRESSION: 1. No significant pulmonary findings nor pleural effusions nor intrathoracic adenopathy. 2. No fractures nor significant osseous lesions. The area of clinical concern in the inferior aspect of the xiphoid process appears within normal limits. Report called by myself to ER provider 12/15/2023 6:50 p.m. RADIATION DOSE DELIVERED: 267.08mGy.cm Total DLP DATA REPOSITORY: All CT scans at this facility are submitted to the National Radiology Data Registry (NRDR) Dose Index Registry (DIR) with the [employer] (ACR). RADIATION OPTIMIZATION: All CT scans at this facility use at least one of these dose optimization te chniques: automated exposure control; mA and/or kV adjustment per patient size (includes targeted exa ms where dose is matched to clinical indication); or iterative reconstruction.
[2023-12-15] MEDS: Potassium Chloride 20 MEQ TABCR 40 MEQ PO (20:18)
== END 2023-12-15 21:39 | disposition home or self-care (01) ==
PROVIDERS: Emergency Provider Physician Assistant; PCP Nurse Practitioner Family
DX: T82.42XA Displacement of vascular dialysis catheter, initial encounter (principal); E87.6 Hypokalemia; U07.1 COVID-19; I48.0 Paroxysmal atrial fibrillation; E11.22 Type 2 diabetes mellitus with diabetic chronic kidney disease; I13.2 Hypertensive heart and chronic kidney disease with heart failure and with stage 5 chronic kidney disease, or end stage renal disease; I50.9 Heart failure, unspecified; N18.6 End stage renal disease; Z99.2 Dependence on renal dialysis; Z79.4 Long term (current) use of insulin; Z99.81 Dependence on supplemental oxygen
CPT/HCPCS: 36415; 71250; 80053; 87426; 87637; 99285; 85025; 99284

== ENCOUNTER 2023-12-18 12:10 | Emergency (ER) | payer MEDICARE, SELFPAY ==
[2023-12-18] VITALS (25 sets, daily range): BP systolic 98–173; BP diastolic 44–140; PULSE 54–123; RESP 14–25; TEMP 36.1; O2SAT 99–100
--- NOTE | 2023-12-18 13:15 | RT.EKG_ITS ---
APPROVED REPORT Exam: Resting ECG Reason for Exam: weakness Patient Location: E HR:128 bpm ECG Measurements Heart Rate 128 AXIS AK [id number] P [id number] QRSd 172 QRS 220 QT 344 T 161 QTc 502 Conclusion Afib/flut and V-paced complexes...other complexes, A-rate>240 Nonspecific intraventricular conduction delay...QRSd >115mS, not LBBB/RBBB Nonspecific repol abnrm, anterolateral leads...ST dep, T neg, I aVL V2-V6
--- NOTE | 2023-12-18 13:16 | W.ED.GENAD ---
Discharge Plan Disposition Patient Disposition: Transfer-Acute Inpatient Care Specific Acute Inpt Facility: [facility] Condition: Serious Discharge Details Chief Complaint: GenMedical Clinical Impression: Complication associated with dialysis catheter, ESRD needing dialysis, Thrombocytopenia, Hypomagnesemia Primary Care Provider: Liliam Villanueva ED Provider: Etienne Turner Home Meds and New Rx's Prescriptions: No Action Trelegy Ellipta 100-62.5-25 mcg blister with device 1 inh INHALATION DAILY Rx Instructions: filled, Rx sent by [facility] cyanocobalamin (vitamin B-12) 250 mcg tablet 500 mcg PO DAILY Patient Comments: TAKE ONE TABLET BY MOUTH EVERY DAY 08/19/23 Per PCP notes [facility] omega-3 fatty acids-fish oil [Fish Oil] 360-1,200 mg capsule 1 cap PO DAILY (DME) Oxygen Tank See Rx Instructions .ROUTE .MEDSUPPLY Qty: 1 Rx Instructions: As directed,2L with physical activity. melatonin 3 mg capsule 6 mg PO QHS polyethylene glycol 3350 [Miralax] 17 gram/dose powder 17 g PO DAILY albuterol sulfate 2.5 mg /3 mL (0.083 %) solution for nebulization See Rx Instructions inhalation Q4H PRN (Reason: shortness of breath or wheezing) Qty: 90 2RF Rx Instructions: BID & PRN SOB, per [facility] D/C (10/2023) inhaled every 4 hours PRN; amiodarone [Pacerone] 200 mg Tablet 200 mg PO DAILY Qty: 0 0RF Inhaler, Assist Devices [Pocket Chamber] 1 ea miscellaneous DIRECTED Qty: 0 0RF buspirone 7.5 mg tablet 7.5 mg PO BID Patient Comments: TAKE ONE TABLET BY MOUTH TWICE A DAY FOR ANXIETY TAKE REGULARILY FOR 2 WEEKS THEN CAN USE MORE NEEDED insulin glargine [Lantus Solostar U-100 Insulin] 100 unit/mL (3 mL) insulin pen 10 unit subcut DAILY lidocaine 5 % adhesive patch,medicated 1 patch topical DAILY Rx Instructions: leave on most painful area for up to 12 hrs Nicotrol 10 mg cartridge 10 mg inhalation DIRECTED PRN Rx Instructions: Q1-2Hrs escitalopram oxalate [Lexapro] 20 mg Tablet 20 mg PO DAILY albuterol sulfate [ProAir HFA] 90 mcg/actuation Hfa Aerosol Inhaler 2 puff Inhalation Q6H PRN PRN (DME) nebulizers [facility] See Dose Instructions .ROUTE .MEDSUPPLY Qty: 1 0RF Dose Instruction: As directed Rx Instructions: As directed rosuvastatin 10 mg tablet 10 mg PO DAILY Qty: 30 0RF Palmira-Frantz 0.8 mg tablet 1 tab PO DAILY Patient Comments: TAKE ONE TABLET BY MOUTH EVERY DAY acetaminophen 325 mg capsule 650 mg PO TID ipratropium-albuterol 0.5 mg-3 mg(2.5 mg base)/3 mL solution for nebulization 3 ml inhalation Q4H PRN (Reason: wheezing) Rx Instructions: per [facility] med list, per [facility] rpt trazodone 50 mg tablet 50 mg PO QHS PRN HPI General Mode of arrival: EMS. Date/Time Provider Initiated Documentation: 12/18/23 12:14. Limitations to Documentation: no limitations. Information obtained by: patient. HPI Narrative: 73-year-old female with end-stage renal disease on hemodialysis Thursday, Thursday, Thursday, here with generalized weakness. Patient was seen here on the for dislodged dialysis catheter. She was diagnosed with COVID at that time and discharged home with plan to follow-up for catheter replacement. She had scheduled appointment for catheter placement and dialysis today at [facility]. Of note last dialysis was on Thursday. Unfortunately she was too weak to ambulate into her family's vehicle and she called 911. Ambulance transported her here to here to [facility]. Patient states she is generally weak. She is not sure if this is from COVID or related to not having dialysis this week. She has no focal weakness. No headache. No leg swelling. She does note cough and some shortness of breath with dyspnea on exertion. No chest pain. Related Data Home Medications ?Medication ?Instructions ?Recorded ?Confirmed albuterol sulfate 90 mcg/actuation 2 puff inhalation Q6H PRN PRN 11/25/17 12/18/23 aerosol inhaler (ProAir HFA) escitalopram oxalate 20 mg tablet 20 mg PO DAILY 11/25/17 12/18/23 (Lexapro) nebulizers #1 ea 11/30/17 12/18/23 Oxygen #1 ea 10/25/20 12/18/23 Inhaler, Assist Devices [Pocket 1 ea miscellaneous DIRECTED ##0 01/23/22 12/18/23 Chamber] amiodarone 200 mg tablet (Pacerone) 200 mg PO DAILY #0 tabs 01/23/22 12/18/23 rosuvastatin 10 mg tablet 10 mg PO DAILY #30 tabs 01/27/23 12/18/23 cyanocobalamin (vitamin B-12) 250 500 mcg PO DAILY 08/19/23 12/18/23 mcg tablet omega-3 fatty acids-fish oil 360 1 cap PO DAILY 08/19/23 12/18/23 mg-1,200 mg capsule (Fish Oil) melatonin 3 mg capsule 6 mg PO QHS 08/20/23 12/18/23 polyethylene glycol 3350 17 17 g PO DAILY 08/20/23 12/18/23 gram/dose oral powder (Miralax) albuterol sulfate 2.5 mg/3 mL See Rx Instructions inhalation Q4H 10/31/23 12/18/23 (0.083 %) solution for nebulization PRN shortness of breath or wheezing #90 mL fluticasone fur. 100 mcg-umeclid 1 inh inhalation DAILY 10/31/23 12/18/23 62.5 mcg-vilant 25 mcg inhalat.powder (Trelegy Ellipta) acetaminophen 325 mg capsule 650 mg PO TID 11/06/23 12/18/23 ipratropium 0.5 mg-albuterol 3 mg 3 ml inhalation Q4H PRN wheezing 11/06/23 12/18/23 (2.5 mg base)/3 mL nebulization soln trazodone 50 mg tablet 50 mg PO QHS PRN 11/06/23 12/18/23 vitamin B complex-vitamin C-folic 1 tab PO DAILY 11/06/23 12/18/23 acid 0.8 mg tablet (Palmira-Frantz) buspirone 7.5 mg tablet 7.5 mg PO BID 11/26/23 12/18/23 insulin glargine 100 unit/mL (3 10 unit subcut DAILY 11/26/23 12/18/23 mL) subcutaneous pen (Lantus Solostar U-100 Insulin) lidocaine 5 % topical patch 1 patch topical DAILY 11/26/23 12/18/23 nicotine 10 mg inhalation 10 mg inhalation DIRECTED PRN 11/26/23 12/18/23 cartridge (Nicotrol) Previous Rx's ?Medication ?Instructions ?Recorded nebulizers #1 ea 11/30/17 Inhaler, Assist Devices [Pocket 1 ea miscellaneous DIRECTED ##0 01/23/22 Chamber] amiodarone 200 mg tablet (Pacerone) 200 mg PO DAILY #0 tabs 01/23/22 rosuvastatin 10 mg tablet 10 mg PO DAILY #30 tabs 01/27/23 albuterol sulfate 2.5 mg/3 mL See Rx Instructions inhalation Q4H 10/31/23 (0.083 %) solution for nebulization PRN shortness of breath or wheezing #90 mL Allergies Allergy/AdvReac Type Severity Reaction Status Date / Time codeine Allergy Mild Other (See Verified 12/18/23 12:23 Comment) fluticasone (From Advair Allergy Mild Other (See Verified 12/18/23 12:23 Diskus) Comment) salmeterol (From Advair Allergy Mild Other (See Verified 12/18/23 12:23 Diskus) Comment) Sulfa (Sulfonamide Allergy Mild Unknown Verified 12/18/23 12:23 Antibiotics) sulfasalazine AdvReac Intermediate Other (See Verified 12/18/23 12:23 Comment) General Stated Complaint: GenMedical VIRY: 3 Review of Systems All systems reviewed & are unremarkable except as noted in HPI and below Exam Const General: cooperative HENMT Mouth: moist mucous membranes Eyes Conjunctivae: normal conjunctivae Sclera: normal sclerae Neck Neck: trachea midline and supple Resp Auscultation: rales bilaterally and no rhonchi Cardio Rate: regular rate and not tachycardic Rhythm: regular rhythm GI Palpation: soft, not firm, no guarding, no masses, not rigid and nontender Skin General skin exam: no rashes or lesions noted Neuro General: patient alert, patient awake, patient oriented x3 and tone normal Extrem General: no edema Course Vital Signs Vital signs: Vital Signs Temperature 36.1 C L 12/18/23 12:10 Pulse 63 12/18/23 12:10 Respiratory Rate 12/18/23 12:10 Blood Pressure 173/140 H 12/18/23 12:10 Pulse Oximetry 100 12/18/23 12:10 Temperature 36.1 C L 12/18/23 12:10 Pulse 63 12/18/23 12:10 Respiratory Rate 18 12/18/23 12:10 Blood Pressure 173/140 H 12/18/23 12:10 Pulse Oximetry 100 12/18/23 12:28 Oxygen Delivery Method Nasal Cannula 12/18/23 12:28 Pain Level 10 12/18/23 12:10 Comment chronic hip and back pain 12/18/23 12:10 Medical Decision Making 1325 --73-year-old female with multiple medical problems including end-stage renal disease on hemodialysis, recently diagnosed COVID, seen here earlier this week for dialysis catheter dislodgment, returns with generalized weakness and inability to ambulate into her vehicle today to get to scheduled dialysis catheter placement and dialysis at [facility] today. Patient last had dialysis 4 days ago. Patient is hypertensive. She is saturating well on nasal cannula oxygen which he uses intermittently at baseline. She has no significant peripheral edema. Medical control was provided to EMS prior to arrival today and they were informed that [facility] is not a dialysis capable center. Unfortunately, they were not able to transport the patient to a more distant dialysis capable facility. On arrival, I immediately contacted [facility] and spoke with Lizette Reed, nurse practitioner in nephrology. She notes she was expecting the patient today and feels the patient does need to be transferred for catheter placement and dialysis today. I have contacted the transfer center at [facility] to request transfer and I am now awaiting callback. --Patient does have low back pain. I will give her oxycodone 5 mg orally. [id number] --notified by community outreach worker that patient has been accepted by Dr. Soila REAGAN ED per the transfer center. Lab Data Lab results reviewed: Yes I reviewed the patient's lab results. Labs: Laboratory Tests Range/Units 12/18/23 13:54 WBC (4.4-10.8) 10^3/uL 8.51 RBC (3.93-5.22) 10^6/uL 4.02 Hgb (11.2-15.7) g/dL 11.8 Hct (36.0-46.0) % 39.0 MCV (80-95) fL 97 H MCH (27.0-33.0) pg 29.4 MCHC (32.0-36.0) % 30.3 L RDW (11.7-14.6) % 17.6 H Plt Count (130-400) 10^3/uL 108 L MPV (8.0-11.0) fL 8.8 Immature Gran % % 0.2 Neutrophils % % 88.2 Lymphocytes % % 6.1 Monocytes % % 5.2 Eosinophils % % 0.1 Basophils % % 0.2 Nucleated RBC % (0.0-0.3) % 0.0 Absolute Neutrophils (1.2-6.7) 10^3/uL 7.50 H Absolute Lymphocytes (1.2-3.4) 10^3/uL 0.52 L Absolute Monocytes (0.1-0.8) 10^3/uL 0.44 Absolute Eosinophils (0.0-0.7) 10^3/uL 0.01 Absolute Basophils (0.0-0.2) 10^3/uL 0.02 Sodium (136-145) mmol/L 138 Potassium (3.5-5.1) mmol/L 3.2 L Chloride (98-107) mmol/L 101 Carbon Dioxide (21.0-32.0) mmol/L 30.9 Anion Gap (3-11) mmol/L 6.1 BUN (7-18) mg/dL 29 H Creatinine (0.55-1.02) mg/dL 4.0 H* Est GFR (CKD-EPI 2020) (mL/min/1.73m2) 11.41 Glucose (74-106) mg/dL 104 Calcium (8.5-10.1) mg/dL 8.1 L Magnesium (1.8-2.4) mg/dL 1.7 L Total Bilirubin (0.2-1.0) mg/dL 0.50 AST (15-37) U/L 35 ALT (14-59) U/L 27 Alkaline Phosphatase (46-116) U/L 138 H Total Protein (6.4-8.2) g/dL 5.6 L Albumin (3.4-5.0) g/dL 1.8 L Quality:SDOH Health Related Social Needs: No Data to Display PFSH All Active Problems (Updated 12/18/23 @ 14:57 by Etienne Turner MD) Hypomagnesemia (Acute) Thrombocytopenia (Chronic) ESRD needing dialysis (Acute) Complication associated with dialysis catheter (Acute) COVID-19 (Acute) Hypokalemia (Acute) Complication associated with dialysis catheter (Acute) Compression fracture of lumbar vertebra (Acute) Difficulty sleeping (Acute) Trazadone helped - started @ [facility] hospitalization? Hospitalization within last 30 days (Acute) [facility] D/C, 10/30/23, w/o meds @ home (TBD).. Home via RCT. Family avble to help if/when called. Anxiety (Chronic) Hemodialysis patient (Acute) 08/19/23 Per PCP notes pt gets diaslysis at [facility] Hyperphosphatemia associated with renal failure (Acute) Right bundle branch block (Acute) Hypocalcemia (Acute) Uremia of renal origin (Acute) High anion gap metabolic acidosis (Acute) Hyperkalemia (Acute) Hyponatremia (Acute) Leukocytosis (Acute) Diabetes (Chronic) Acute on chronic respiratory failure with hypoxia (Acute) Acute on chronic kidney failure (Acute) CAP (community acquired pneumonia) (Acute) Acute on chronic renal insufficiency (Acute) Sepsis (Acute) Aortic stenosis (Chronic) Obesity (Chronic) HLD (hyperlipidemia) (Acute) Hypomagnesemia (Acute) Acute kidney injury superimposed on chronic kidney disease (Acute) Acute on chronic respiratory failure with hypoxia (Acute) Tick bite (Acute) Parainfluenza (Acute) Type II diabetes mellitus (Acute) COPD exacerbation (Acute) Acute hyperkalemia (Acute) Pneumonia (Acute) Acute exacerbation of chronic obstructive pulmonary disease (Acute) Hypoxia (Acute) Abnormal ECG (Acute) Weakness (Acute) Diarrhea (Acute) Congestive heart failure (Chronic) Shortness of breath (Acute) Medication monitoring encounter (Acute) Tubular adenoma of colon (Acute) Diverticulosis (Chronic) Colon polyps (Chronic) Anemia (Chronic) Pleural effusion (Acute) Tobacco abuse (Chronic) Depression (Chronic) Hypertension (Chronic) Dental abscess (Acute) COPD (chronic obstructive pulmonary disease) (Chronic) Personal history of nicotine dependence (Acute) Right ankle injury (Acute) Anemia (Chronic) Medical History Pneumonia Afib 08/19/23 Per PCP notes on aiodarone [facility] Paroxysmal atrial flutter On supplemental oxygen therapy on O2 of night. Is able to lay flat CKD (chronic kidney disease) stage 3, GFR 30-59 ml/min Pt. denies Diabetes mellitus 10/21/21 [facility] visit not well controlled, A1C 8.2 Discharge planning issues Diabetes mellitus Surgical History History of colonoscopy (~12/2021) Hx of hernia repair Social History Smoking/Tobacco Use Status: Former Tobacco Use Quit Date: 03/23/18 Tobacco: How many years used: 65 Smoking risk assessment performed?: Yes Alcohol Intake: current Alcohol Intake frequency: holidays/special occasions only Drug use: Never Substance use type: does not use Housing: house Do you feel safe at home: Yes Do you feel safe in your relationship?: Yes
[2023-12-18 14:02] LABS: Abs Immature Grans 0.02 10^3/uL (0.0-0.06); Absolute Basophil Count 0.02 10^3/uL (0.0-0.2); Absolute Eosinophil Count 0.01 10^3/uL (0.0-0.7); Absolute Lymphocyte Count 0.52 10^3/uL (1.2-3.4); Absolute Monocyte Count 0.44 10^3/uL (0.1-0.8); Basophils % 0.2 %; Eosinophils % 0.1 %; HGB 11.8 g/dL (11.2-15.7); Immature Grans % 0.2 %; Lymphocytes % 6.1 %; MCH 29.4 pg (27.0-33.0); MCHC 30.3 % (32.0-36.0); MCV 97 fL (80-95); MPV 8.8 fL (8.0-11.0); Monocytes % 5.2 %; Neutrophils % 88.2 %; Platelet Count 108 10^3/uL (130-400); RBC 4.02 10^6/uL (3.93-5.22); RDW 17.6 % (11.7-14.6); WBC 8.51 10^3/uL (4.4-10.8)
[2023-12-18] MEDS: oxyCODONE 5 MG TAB PO (14:14)
[2023-12-18 14:15] LABS: ALT 27 U/L (14-59); AST 35 U/L (15-37); Albumin 1.8 g/dL (3.4-5.0); Alkaline Phosphatase 138 U/L (46-116); Anion Gap 6.1 mmol/L (3-11); BUN 29 mg/dL (7-18); CO2 30.9 mmol/L (21.0-32.0); Calcium 8.1 mg/dL (8.5-10.1); Chloride 101 mmol/L (98-107); Estimated GFR 11.41 (mL/min/1.73m2); Glucose 104 mg/dL (74-106); Magnesium 1.7 mg/dL (1.8-2.4); Potassium 3.2 mmol/L (3.5-5.1); Sodium 138 mmol/L (136-145); Total Protein 5.6 g/dL (6.4-8.2)
== END 2023-12-18 15:10 | disposition short-term general hospital (02) ==
PROVIDERS: Emergency Provider Student in an Organized Health Care Education/Training Program; PCP Nurse Practitioner Family
DX: T82.42XA Displacement of vascular dialysis catheter, initial encounter (principal); D69.6 Thrombocytopenia, unspecified; E83.42 Hypomagnesemia; E11.22 Type 2 diabetes mellitus with diabetic chronic kidney disease; I12.0 Hypertensive chronic kidney disease with stage 5 chronic kidney disease or end stage renal disease; N18.6 End stage renal disease; J44.9 Chronic obstructive pulmonary disease, unspecified; I48.92 Unspecified atrial flutter; U07.1 COVID-19; Z79.4 Long term (current) use of insulin; Z99.2 Dependence on renal dialysis; Z99.81 Dependence on supplemental oxygen; Z87.891 Personal history of nicotine dependence
CPT/HCPCS: 36415; 80053; 93005; 99285; 83735; 85025; 93010

== ENCOUNTER 2024-01-14 15:16 | Outpatient (REF) | payer MEDICARE, SELFPAY ==
[2024-01-14 17:55] LABS: Abs Immature Grans 0.08 10^3/uL (0.0-0.06); Absolute Basophil Count 0.08 10^3/uL (0.0-0.2); Absolute Eosinophil Count 0.21 10^3/uL (0.0-0.7); Absolute Lymphocyte Count 0.85 10^3/uL (1.2-3.4); Absolute Monocyte Count 0.91 10^3/uL (0.1-0.8); Absolute Neutrophil Count 9.63 10^3/uL (1.2-6.7); Basophils % 0.7 %; Eosinophils % 1.8 %; HCT 32.4 % (36.0-46.0); Immature Grans % 0.7 %; Lymphocytes % 7.2 %; MCH 31.1 pg (27.0-33.0); MCHC 30.9 % (32.0-36.0); MCV 101 fL (80-95); MPV 9.3 fL (8.0-11.0); Monocytes % 7.7 %; Neutrophils % 81.9 %; Platelet Count 306 10^3/uL (130-400); RBC 3.22 10^6/uL (3.93-5.22); RDW 16.8 % (11.7-14.6); RDW-SD 62.5 fL; WBC 11.76 10^3/uL (4.4-10.8)
[2024-01-14 19:01] LABS: Hemoglobin A1C 5.2 % (<5.7)
== END 2024-01-14 15:17 | disposition home or self-care (01) ==
LOC: LBN 15:16
PROVIDERS: PCP Family Medicine; Visit Provider Family Medicine
DX: E11.9 Type 2 diabetes mellitus without complications (principal)
CPT/HCPCS: 83036; 85025

== ENCOUNTER 2024-01-21 12:27 | Outpatient (REF) | payer MEDICARE, SELFPAY ==
[2024-01-21 13:01] LABS: Abs Immature Grans 0.19 10^3/uL (0.0-0.06); Absolute Basophil Count 0.08 10^3/uL (0.0-0.2); Absolute Eosinophil Count 0.32 10^3/uL (0.0-0.7); Absolute Lymphocyte Count 0.92 10^3/uL (1.2-3.4); Absolute Monocyte Count 0.86 10^3/uL (0.1-0.8); Basophils % 0.9 %; Eosinophils % 3.6 %; HCT 32.7 % (36.0-46.0); HGB 10.2 g/dL (11.2-15.7); Immature Grans % 2.1 %; Lymphocytes % 10.3 %; MCH 31.3 pg (27.0-33.0); MCHC 31.2 % (32.0-36.0); MCV 100 fL (80-95); MPV 8.7 fL (8.0-11.0); Monocytes % 9.6 %; Neutrophils % 73.5 %; Platelet Count 284 10^3/uL (130-400); RBC 3.26 10^6/uL (3.93-5.22); RDW 16.8 % (11.7-14.6); RDW-SD 61.1 fL; WBC 8.97 10^3/uL (4.4-10.8)
[2024-01-21 13:10] LABS: ALT 26 U/L (14-59); AST 34 U/L (15-37); Albumin 1.7 g/dL (3.4-5.0); Alkaline Phosphatase 104 U/L (46-116); Bilirubin, Direct 0.1 mg/dL (0.0-0.2); Bilirubin, Total 0.24 mg/dL (0.2-1.0); Total Protein 4.8 g/dL (6.4-8.2)
[2024-01-21 13:18] LABS: Hemoglobin A1C 5.1 % (<5.7)
== END 2024-01-21 12:28 | disposition home or self-care (01) ==
LOC: LBN 12:27
PROVIDERS: PCP Family Medicine; Visit Provider Family Medicine
DX: I48.0 Paroxysmal atrial fibrillation (principal); E78.49 Other hyperlipidemia; I10 Essential (primary) hypertension; N18.6 End stage renal disease
CPT/HCPCS: 80076; 83036; 85025

== ENCOUNTER 2024-03-08 15:35 | Observation (INO) | payer MEDICARE, SELFPAY ==
[2024-03-08] VITALS (48 sets, daily range): BP systolic 116–162; BP diastolic 49–78; PULSE 64–83; RESP 15–18; TEMP 36.3–36.7; O2SAT 98–100
--- NOTE | 2024-03-08 15:38 | ED.GENADUL_ITS ---
Discharge Plan Disposition Patient Disposition: Admit to [facility] Condition: Good Discharge Details Chief Complaint: GenMedical Clinical Impression: Complication associated with dialysis catheter Primary Care Provider: Yenny Adkins V ED Provider: Mazin Wagner Home Meds and New Rx's Prescriptions: No Action Tiff Dowd 100-62.5-25 mcg blister with device 1 inh INHALATION DAILY Rx Instructions: filled, Rx sent by [facility] cyanocobalamin (vitamin B-12) 250 mcg tablet 500 mcg PO DAILY Patient Comments: TAKE ONE TABLET BY MOUTH EVERY DAY 08/19/23 Per PCP notes [facility] omega-3 fatty acids-fish oil [Fish Oil] 360-1,200 mg capsule 1 cap PO DAILY (DME) Oxygen Tank See Rx Instructions .ROUTE .MEDSUPPLY Qty: 1 Rx Instructions: As directed,2L with physical activity. melatonin 3 mg capsule 6 mg PO QHS polyethylene glycol 3350 [Miralax] 17 gram/dose powder 17 g PO DAILY albuterol sulfate 2.5 mg /3 mL (0.083 %) solution for nebulization See Rx Instructions inhalation Q4H PRN (Reason: shortness of breath or wheezing) Qty: 90 2RF Rx Instructions: BID & PRN SOB, per [facility] [place]/[facility] (10/2023) inhaled every 4 hours PRN; amiodarone [Pacerone] 200 mg Tablet 200 mg PO DAILY Qty: 0 0RF Inhaler, Assist Devices [Pocket Chamber] 1 ea miscellaneous DIRECTED Qty: 0 0RF buspirone 7.5 mg tablet 7.5 mg PO BID Patient Comments: TAKE ONE TABLET BY MOUTH TWICE A DAY FOR ANXIETY TAKE REGULARILY FOR 2 WEEKS THEN CAN USE MORE NEEDED insulin glargine [Lantus Solostar U-100 Insulin] 100 unit/mL (3 mL) insulin pen 10 unit subcut DAILY lidocaine 5 % adhesive patch,medicated 1 patch topical DAILY Rx Instructions: leave on most painful area for up to 12 hrs Nicotrol 10 mg cartridge 10 mg inhalation DIRECTED PRN Rx Instructions: Q1-2Hrs escitalopram oxalate [Lexapro] 20 mg Tablet 20 mg PO DAILY albuterol sulfate [ProAir HFA] 90 mcg/actuation Hfa Aerosol Inhaler 2 puff Inhalation Q6H PRN PRN (DME) nebulizers mis See Dose Instructions .ROUTE .MEDSUPPLY Qty: 1 0RF Dose Instruction: As directed Rx Instructions: As directed rosuvastatin 10 mg tablet 10 mg PO DAILY Qty: 30 0RF Palmira-Frantz 0.8 mg tablet 1 tab PO DAILY Patient Comments: TAKE ONE TABLET BY MOUTH EVERY DAY acetaminophen 325 mg capsule 650 mg PO TID ipratropium-albuterol 0.5 mg-3 mg(2.5 mg base)/3 mL solution for nebulization 3 ml inhalation Q4H PRN (Reason: wheezing) Rx Instructions: per [facility] med list, per [facility] rpt trazodone 50 mg tablet 50 mg PO QHS PRN HPI General Date/Time Provider Initiated Documentation: 03/08/24 15:38 . HPI Narrative: 74-year-old female who is currently on dialysis Thursday with a past medical history paroxysmal A-fib, chronic kidney disease, diabetes mellitus, not currently anticoagulated who presents today for evaluation of removal of her dialysis catheter. Patient has a right subclavian dialysis catheter. She called EMS because she states that it got pulled out. She does not know how it got pulled out. She does not know if it was pulled out accidentally. She is not able to give any other additional historical components. Of historical note she did pull out her dialysis catheter accidentally about 3 months ago. Per report it seems that home health had accidentally clipped the stitches and pulled the whole thing out. It was then subsequently replaced at [facility] few days later. Patient denies any complaints of chest pain or shortness of breath. No fever or chills. No other modifying factors. Related Data Home Medications ?Medication ?Instructions ?Recorded ?Confirmed albuterol sulfate 90 mcg/actuation 2 puff inhalation Q6H PRN PRN 11/25/17 12/18/23 aerosol inhaler (ProAir HFA) escitalopram oxalate 20 mg tablet 20 mg PO DAILY 11/25/17 12/18/23 (Lexapro) nebulizers #1 ea 11/30/17 12/18/23 Oxygen #1 ea 10/25/20 12/18/23 Inhaler, Assist Devices [Pocket 1 ea miscellaneous DIRECTED ##0 01/23/22 12/18/23 Chamber] amiodarone 200 mg tablet (Pacerone) 200 mg PO DAILY #0 tabs 01/23/22 12/18/23 rosuvastatin 10 mg tablet 10 mg PO DAILY #30 tabs 01/27/23 12/18/23 cyanocobalamin (vitamin B-12) 250 500 mcg PO DAILY 08/19/23 12/18/23 mcg tablet omega-3 fatty acids-fish oil 360 1 cap PO DAILY 08/19/23 12/18/23 mg-1,200 mg capsule (Fish Oil) melatonin 3 mg capsule 6 mg PO QHS 08/20/23 12/18/23 polyethylene glycol 3350 17 17 g PO DAILY 08/20/23 12/18/23 gram/dose oral powder (Miralax) albuterol sulfate 2.5 mg/3 mL See Rx Instructions inhalation Q4H 10/31/23 12/18/23 (0.083 %) solution for nebulization PRN shortness of breath or wheezing #90 mL fluticasone fur. 100 mcg-umeclid 1 inh inhalation DAILY 10/31/23 12/18/23 62.5 mcg-vilant 25 mcg inhalat.powder (Trelegy Ellipta) acetaminophen 325 mg capsule 650 mg PO TID 11/06/23 12/18/23 ipratropium 0.5 mg-albuterol 3 mg 3 ml inhalation Q4H PRN wheezing 11/06/23 12/18/23 (2.5 mg base)/3 mL nebulization soln trazodone 50 mg tablet 50 mg PO QHS PRN 11/06/23 12/18/23 vitamin B complex-vitamin C-folic 1 tab PO DAILY 11/06/23 12/18/23 acid 0.8 mg tablet (Palmira-Frantz) buspirone 7.5 mg tablet 7.5 mg PO BID 11/26/23 12/18/23 insulin glargine 100 unit/mL (3 10 unit subcut DAILY 11/26/23 12/18/23 mL) subcutaneous pen (Lantus Solostar U-100 Insulin) lidocaine 5 % topical patch 1 patch topical DAILY 11/26/23 12/18/23 nicotine 10 mg inhalation 10 mg inhalation DIRECTED PRN 11/26/23 12/18/23 cartridge (Nicotrol) Previous Rx's ?Medication ?Instructions ?Recorded nebulizers #1 ea 11/30/17 Inhaler, Assist Devices [Pocket 1 ea miscellaneous DIRECTED ##0 01/23/22 Chamber] amiodarone 200 mg tablet (Pacerone) 200 mg PO DAILY #0 tabs 01/23/22 rosuvastatin 10 mg tablet 10 mg PO DAILY #30 tabs 01/27/23 albuterol sulfate 2.5 mg/3 mL See Rx Instructions inhalation Q4H 10/31/23 (0.083 %) solution for nebulization PRN shortness of breath or wheezing #90 mL Allergies Allergy/AdvReac Type Severity Reaction Status Date / Time codeine Allergy Mild Other (See Verified 12/18/23 12:23 Comment) fluticasone (From Advair Allergy Mild Other (See Verified 12/18/23 12:23 Diskus) Comment) salmeterol (From Advair Allergy Mild Other (See Verified 12/18/23 12:23 Diskus) Comment) Sulfa (Sulfonamide Allergy Mild Unknown Verified 12/18/23 12:23 Antibiotics) sulfasalazine AdvReac Intermediate Other (See Verified 12/18/23 12:23 Comment) General VIRY: 3 Exam Narrative Exam Narrative: 1.Const: Well-nourished, Well-developed, appearing stated age 2.Eyes: PERRL, no conjunctival injection, and symmetrical lids. 3.ENT: Atraumatic external nose and ears. Moist MM. Neck: Symmetric, trachea midline, No thyromegaly. 4.CVS: +S1/S2, Peripheral pulses 2+ and equal in all extremities. Brisk capillary refill in all extremities. 5.RESP: Unlabored respiratory effort. Clear to auscultation bilaterally. No wheezes rales or rhonchi. Dialysis catheter site under the right subclavian shows no active bleeding or bruising. No oozing. No tenderness. No large hematoma. 6.GI: Soft, Nontender/Nondistended, No hepatosplenomegaly. No guarding or rebound. 7.MSK: Normocephalic/Atraumatic, Extremities w/o deformity or ttp No cyanosis or clubbing, Normal movement of all extremities 8.Skin: Warm, Dry. No rashes or lesions. 9.Neuro: beet flumer II-XII grossly intact. Sensation grossly intact, no focal neurologic deficits. 10.Psych: (AAO) x3. Appropriate mood and affect Medical Decision Making 74-year-old female who is currently on dialysis Thursday with a past medical history paroxysmal A-fib, chronic kidney disease, diabetes mellitus, not currently anticoagulated who presents today for evaluation of removal of her dialysis catheter. Patient has a right subclavian dialysis catheter. She called EMS because she states that it got pulled out. She does not know how it got pulled out. She does not know if it was pulled out accidentally. She is not able to give any other additional historical components. Of historical note she did pull out her dialysis catheter accidentally about 3 months ago. Per report it seems that home health had accidentally clipped the stitches and pulled the whole thing out. It was then subsequently replaced at [facility] few days later. Patient denies any complaints of chest pain or shortness of breath. No fever or chills. No other modifying factors. Exam demonstrates a very minimal amount of bruising where the catheter was, but no active bleeding or oozing. No distal neurovascular compromise. No chest tenderness. No diminished lung sounds. No bruit or large hematoma. Uncertain how or why the patient pulled it out, but it seems to have been accidental. It is no evidence of huge external trauma, I do feel that portable chest x-ray is indicated to make sure there are no residual components or pieces, that there is no evidence of hemothorax. With no clinical evidence to suggest massive vascular compromise, I do not see an indication for emergent CTA imaging at this time. Will monitor closely and reassess. 6:49 PM Chest x-ray shows no evidence of large hemothorax on the right. Some increased lung markings at the bases, potential infiltrate however she has no cough or shortness of breath or chills to suggest infection whatsoever. No clinical evidence to suspect pneumonia. Patient remains hemodynamically stable. She continues to state that she does not know how it got pulled out. I did contact [facility] and discussed the case with Dr. Noni Stein of vascular surgery. Initially she agreed to have the patient come down tomorrow by private vehicle to have it replaced. Patient is certainly stable for this. However when I went and discussed this with the patient she explained that she had no resources or ability to be able to get down to [facility]. She utilizes a wheelchair, but she does not have any friends who could drive her. Unfortunately when this was discovered case management was no longer available. We did contact access to page them, and they state that there is no case management internal controls analyst, and they have made it very clear to them in the past that they are not to be paged. I did contact [facility] again, and they are willing to do a down and back proc edure for the patient tomorrow morning. They are not able to do it tonight. While the patient is a dialysis patient she certainly does not need emergent dialysis right now at this time. I had a long discussion with the hospitalist, the nursing supervisor advertising dispatch clerks Farhat, and the nursing supervisor advertising dispatch clerks Citlalli. We discussed the scenario, the patient's risk factors, and or other concerns. Additionally we cannot perform a down and back procedure from the ED secondary to EMTALA for her returning. In addition to this the patient could potentially be transferred home after the procedure at [facility] however we do not have confirmation from EMS or case management that this is possible. Through shared decision making process understanding the entirety of the clinical scenario as well as the limitations, we have decided that the decision that would be in the best interest of the patient would be to observe here overnight in the hospital and one of our current 12 open beds as an observation since there is no emergent dialysis need. And then in the morning she would have the down and back procedure with [facility]. Discussed the case with the hospitalist Dr. Hensley, he agrees with the plan. I have extensively reviewed the treatment plan with the patient. I have addressed all patient concerns at this time. I have also discussed the plan with the admitting physician and they agree with the current assessment and plan and have agreed to assume responsibility for the patient. All parties demonstrate verbal understanding and agreement with our assessment and plan at this time. The documentation in this chart was dictated using [employer] dictation software. Please excuse any dictation errors. FINDINGS: Single lordotic AP portable view. Compared to 11/08/2023. Heart size is upper normal. The mediastinum is not widened. Previously present right-sided central line has been removed. No pulmonary edema. However, there appears to be some mild infiltrate in the lung bases, somewhat difficult to assess because of lordotic technique here. There is also mild apical pleural thickening on the right side. IMPRESSION: Some increased markings both lung bases more so left side-probable infiltrate. Recommend nonportable PA and lateral views when clinically possible. These findings are difficult to interpret accurately on a single portable lordotic AP view. Central line no longer in place. There is no evidence of pulmonary edema. DATA REPOSITORY: RADIATION DOSE DELIVERED: Quality:[facility] Health Related Social Needs: No Data to Display PFSH All Active Problems (Updated 03/08/24 @ 18:57 by Mazin Wagner, DO) Complication associated with dialysis catheter (Acute) COVID-19 (Acute) Difficulty sleeping (Acute) Trazadone helped - started @ [facility] hospitalization? Hospitalization within last 30 days (Acute) [facility] D/C, 10/30/23, w/o meds @ home (TBD).. Home via RCT. Family avble to help if/when called. Anxiety (Chronic) Hemodialysis patient (Acute) 08/19/23 Per PCP notes pt gets diaslysis at [facility] Hyperphosphatemia associated with renal failure (Acute) Right bundle branch block (Acute) Hypocalcemia (Acute) Uremia of renal origin (Acute) High anion gap metabolic acidosis (Acute) Hyperkalemia (Acute) Hyponatremia (Acute) Leukocytosis (Acute) Diabetes (Chronic) Acute on chronic respiratory failure with hypoxia (Acute) Acute on chronic kidney failure (Acute) CAP (community acquired pneumonia) (Acute) Acute on chronic renal insufficiency (Acute) Sepsis (Acute) Aortic stenosis (Chronic) Obesity (Chronic) HLD (hyperlipidemia) (Acute) Hypomagnesemia (Acute) Acute kidney injury superimposed on chronic kidney disease (Acute) Acute on chronic respiratory failure with hypoxia (Acute) Tick bite (Acute) Parainfluenza (Acute) Type II diabetes mellitus (Acute) COPD exacerbation (Acute) Acute hyperkalemia (Acute) Pneumonia (Acute) Acute exacerbation of chronic obstructive pulmonary disease (Acute) Hypoxia (Acute) Abnormal ECG (Acute) Weakness (Acute) Diarrhea (Acute) Congestive heart failure (Chronic) Shortness of breath (Acute) Medication monitoring encounter (Acute) Tubular adenoma of colon (Acute) Diverticulosis (Chronic) Colon polyps (Chronic) Anemia (Chronic) Pleural effusion (Acute) Tobacco abuse (Chronic) Depression (Chronic) Hypertension (Chronic) Dental abscess (Acute) COPD (chronic obstructive pulmonary disease) (Chronic) Personal history of nicotine dependence (Acute) Right ankle injury (Acute) Anemia (Chronic) Medical History Pneumonia Afib 08/19/23 Per PCP notes on aiodarone [facility] Paroxysmal atrial flutter On supplemental oxygen therapy on O2 of night. Is able to lay flat CKD (chronic kidney disease) stage 3, GFR 30-59 ml/min Pt. denies Diabetes mellitus 10/21/21 Counts Include 234 Beds At [facility] visit not well controlled, A1C 8.2 Discharge planning issues Diabetes mellitus Surgical History History of colonoscopy (~12/2021) Hx of hernia repair Social History Smoking/Tobacco Use Status: Former Tobacco Use Quit Date: 03/23/18 Tobacco: How many years used: 67 Smoking risk assessment performed?: Yes Alcohol Intake: current Alcohol Intake frequency: holidays/special occasions only Drug use: Never Substance use type: does not use Housing: house Do you feel safe at home: Yes Do you feel safe in your relationship?: Yes
--- NOTE | 2024-03-08 15:49 | DI.RAD_ITS ---
Exam(s) XR PORTABLE CHEST AP EXAM: XR PORTABLE CHEST AP CLINICAL HISTORY: Ripped out dialysis catheter in right subclavian. TECHNIQUE: 2D digital imaging was performed. COMPARISON: CR,XR XR PORTABLE CHEST AP from 11/06/2023 FINDINGS: Single lordotic AP portable view. Compared to 11/08/2023. Heart size is upper normal. The mediastinum is not widened. Previously present right-sided central line has been removed. No pulmonary edema. However, there ap pears to be some mild infiltrate in the lung bases, somewhat difficult to assess because of lordotic technique here. There is also mild apical pleural thickening on the right side. IMPRESSION: Some increased markings both lung bases more so left side-probable infiltrate. Recommend nonportable PA and lateral views when clinically possible. These findings are difficult to interpret accurately on a single portable lordotic AP view. Central line no longer in place. There is no evidence of pulmonary edema. DATA REPOSITORY: RADIATION DOSE DELIVERED:
--- NOTE | 2024-03-08 18:59 | HPE_ITS ---
Date of service: 03/08/24 Time of Service: 18:59 Assessment and Plan Assessment and plan (1) Complication associated with dialysis catheter: Start date: 03/08/24 Status: Acute Assessment and plan: This is a 74-year-old lady who keeps dislodging her subclavian catheter and refuses AV fistula for chronic hemodialysis with CKD stage V. She appeared to have no complications from her catheter being dislodged this time and she will be sent to [facility] for replacement of her subclavian catheter to continue hemodialysis locally on Thursday, Thursday and Thursday. She appears at needs more social support uses [facility] for transportation but not doing well with transfer and being wheelchair-bound. She does have her granddaughter as hand button splitter. Case management should assess her situation. She is a full code. (2) Pulmonary infiltrates on CXR: Start date: 03/08/24 Status: Acute Assessment and plan: 2 view chest x-ray did not reveal any acute infiltrates and no treatment was initiated. Patient does have some chronic changes in the lower lobe. (3) CKD (chronic kidney disease) stage V requiring chronic dialysis: Status: Chronic Assessment and plan: End-stage on hemodialysis. Patient should consider AV fistula. (4) Diabetes mellitus: Assessment and plan: Hold outpatient medical therapy with glucometer measurements before meals and at bedtime with sliding scale insulin coverage. (5) Tobacco abuse: Status: Chronic Assessment and plan: Advised cessation long-term discussed with patient and immobilization and increased risk for pneumonia. (6) COPD (chronic obstructive pulmonary disease): Status: Chronic Assessment and plan: Continue outpatient therapy. (7) Afib: Assessment and plan: The patient outpatient medical therapy. She is not on anticoagulation and DVT prophylaxis should be held prior to procedure. History of Present Illness History of Present Illness Chief Complaint: Dislodging of right subclavian dialysis catheter, accidental Narrative: This is a 74-year-old female patient who is on chronic dialysis with CKD who presents with accidental dislodging of her right subclavian dialysis catheter. This has happened at least 3 times before and the patient had to have it replaced. The patient refuses to have AV fistula with initiation of her hemodialysis over this last year by history. In the ED patient had a chest x- ray done looking for complications from her dislodged subclavian catheter of which there were none. There was a question of an infiltrate and repeat chest x-ray will be performed with no antibiotic initiated because of symptoms, no elevated WBC and no fever or cough. Patient had no labs which will be done upon admission. She is stable medically but cannot go home and cannot find transportation for a down and back procedure to replace the subclavian catheter in the morning at [facility]. [facility] nephrology has agreed to this procedure but would not take the patient in transfer tonight. Case management did not want to be contacted and the oil house attendant advised best plan for observation overnight for this social dilemma. The only issue may be what is found on labs and possibility of an asymptomatic infiltrate on chest x-ray which will be followed up. The patient's chronic medical problems are stable with the present medical regimen. Patient will have at least CBC with CMP performed. She is a full code. There does appear to be some social chaos and lack of support with patient essentially being wheelchair-bound and having only her granddaughter at home who does not drive. Review of Systems Narrative: 13 point review of systems otherwise unrevealing or stable. Patient does have chronic sleep apnea with obesity, CHF, COPD with chronic tobacco use, CKD with anemia and diabetes with no active complaints. She is wheelchair-bound and has difficulty transferring with her granddaughter as a hand button splitter. [facility] All Active Problems (Updated 03/08/24 @ 19:20 by Guy Hesnley) Pulmonary infiltrates on CXR (Acute) CKD (chronic kidney disease) stage V requiring chronic dialysis (Chronic) Complication associated with dialysis catheter (Acute) COVID-19 (Acute) Difficulty sleeping (Acute) Trazadone helped - started @ [facility] hospitalization? Hospitalization within last 30 days (Acute) [facility] D/C, 10/30/23, w/o meds @ home (TBD).. Home via RCT. Family avble to help if/when called. Anxiety (Chronic) Hemodialysis patient (Chronic) 08/19/23 Per PCP notes pt gets diaslysis at [facility] Hyperphosphatemia associated with renal failure (Acute) Right bundle branch block (Acute) Hypocalcemia (Acute) Uremia of renal origin (Acute) High anion gap metabolic acidosis (Acute) Hyperkalemia (Acute) Hyponatremia (Acute) Leukocytosis (Acute) Diabetes (Chronic) Acute on chronic respiratory failure with hypoxia (Acute) Acute on chronic kidney failure (Acute) CAP (community acquired pneumonia) (Acute) Acute on chronic renal insufficiency (Acute) Sepsis (Acute) Aortic stenosis (Chronic) Obesity (Chronic) HLD (hyperlipidemia) (Acute) Hypomagnesemia (Acute) Acute kidney injury superimposed on chronic kidney disease (Acute) Acute on chronic respiratory failure with hypoxia (Acute) Tick bite (Acute) Parainfluenza (Acute) Type II diabetes mellitus (Acute) COPD exacerbation (Acute) Acute hyperkalemia (Acute) Pneumonia (Acute) Acute exacerbation of chronic obstructive pulmonary disease (Acute) Hypoxia (Acute) Abnormal ECG (Acute) Weakness (Acute) Diarrhea (Acute) Congestive heart failure (Chronic) Shortness of breath (Acute) Medication monitoring encounter (Acute) Tubular adenoma of colon (Acute) Diverticulosis (Chronic) Colon polyps (Chronic) Anemia (Chronic) Pleural effusion (Acute) Tobacco abuse (Chronic) Depression (Chronic) Hypertension (Chronic) Dental abscess (Acute) COPD (chronic obstructive pulmonary disease) (Chronic) Personal history of nicotine dependence (Acute) Right ankle injury (Acute) Anemia (Chronic) Medical History Pneumonia Afib 08/19/23 Per PCP notes on aiodarone [facility] Paroxysmal atrial flutter On supplemental oxygen therapy on O2 of night. Is able to lay flat CKD (chronic kidney disease) stage 3, GFR 30-59 ml/min Pt. denies Diabetes mellitus 10/21/21 [facility] visit not well controlled, A1C 8.2 Discharge planning issues Diabetes mellitus Surgical History History of colonoscopy (~12/2021) Hx of hernia repair Social History Smoking/Tobacco Use Status: Former Tobacco Use Quit Date: 03/23/18 Tobacco: How many years used: 65 Smoking risk assessment performed?: Yes Alcohol Intake: current Alcohol Intake frequency: holidays/special occasions only Drug use: Never Substance use type: does not use Housing: house Do you feel safe at home: Yes Do you feel safe in your relationship?: Yes Meds Allergies and Home Medications Allergies Allergy/AdvReac Type Severity Reaction Status Date / Time codeine Allergy Mild Other (See Verified 12/18/23 12:23 Comment) fluticasone (From Advair Allergy Mild Other (See Verified 12/18/23 12:23 Diskus) Comment) salmeterol (From Advair Allergy Mild Other (See Verified 12/18/23 12:23 Diskus) Comment) Sulfa (Sulfonamide Allergy Mild Unknown Verified 12/18/23 12:23 Antibiotics) sulfasalazine AdvReac Intermediate Other (See Verified 12/18/23 12:23 Comment) Home Medications ?Medication ?Instructions ?Recorded ?Confirmed ?Type albuterol sulfate 90 mcg/actuation 2 puff inhalation Q6H PRN PRN 11/25/17 03/08/24 History aerosol inhaler (ProAir HFA) escitalopram oxalate 20 mg tablet 20 mg PO DAILY 11/25/17 03/08/24 History (Lexapro) nebulizers #1 ea 11/30/17 03/08/24 Rx Oxygen #1 ea 10/25/20 03/08/24 History Inhaler, Assist Devices [Pocket 1 ea miscellaneous DIRECTED ##0 01/23/22 03/08/24 Rx Chamber] amiodarone 200 mg tablet (Pacerone) 200 mg PO DAILY #0 tabs 01/23/22 03/08/24 Rx rosuvastatin 10 mg tablet 10 mg PO DAILY #30 tabs 01/27/23 03/08/24 Rx cyanocobalamin (vitamin B-12) 250 500 mcg PO DAILY 08/19/23 03/08/24 History mcg tablet omega-3 fatty acids-fish oil 360 1 cap PO DAILY 08/19/23 03/08/24 History mg-1,200 mg capsule (Fish Oil) melatonin 3 mg capsule 6 mg PO QHS 08/20/23 03/08/24 History polyethylene glycol 3350 17 17 g PO DAILY 08/20/23 03/08/24 History gram/dose oral powder (Miralax) albuterol sulfate 2.5 mg/3 mL See Rx Instructions inhalation Q4H 10/31/23 03/08/24 Rx (0.083 %) solution for nebulization PRN shortness of breath or wheezing #90 mL fluticasone fur. 100 mcg-umeclid 1 inh inhalation DAILY 10/31/23 03/08/24 History 62.5 mcg-vilant 25 mcg inhalat.powder (Trelegy Ellipta) acetaminophen 325 mg capsule 650 mg PO BID 11/06/23 03/08/24 History ipratropium 0.5 mg-albuterol 3 mg 3 ml inhalation Q4H PRN wheezing 11/06/23 03/08/24 History (2.5 mg base)/3 mL nebulization soln trazodone 50 mg tablet 50 mg PO QHS PRN 11/06/23 03/08/24 History vitamin B complex-vitamin C-folic 1 tab PO DAILY 11/06/23 03/08/24 History acid 0.8 mg tablet (Palmira-Frantz) insulin glargine 100 unit/mL (3 22 unit subcut DAILY 11/26/23 03/08/24 History mL) subcutaneous pen (Lantus Solostar U-100 Insulin) lidocaine 5 % topical patch 1 patch topical DAILY 11/26/23 03/08/24 History nicotine 10 mg inhalation 10 mg inhalation DIRECTED PRN 11/26/23 03/08/24 History cartridge (Nicotrol) Exam Narrative Exam Narrative: General: Patient appears appropriate for age, moderately obese lying in bed and not able to sit up because of back pain. She has a flattened affect and appears irritated with questioning. She is alert and oriented x 3., Voice is monotonous with slightly pressured speech. HEENT: Normocephalic, eyes with pupils equal and reactive to light symmetrically, extraocular move intact and sclera anicteric. Oropharynx with dry mucosa. Neck: Supple without JVD. Back: No full exam with patient not able to sit up but patient complains of chronic back pain and decreased mobility. Lungs: Fair aeration and clear to oscillation percussion. Breast: Exam deferred. Heart: Regular rate and rhythm with no appreciable murmur or gallop. Abdomen: Obese contour, soft and nontender to palpation with no palpable hepatosplenomegaly. Bowel sounds positive all quadrants. Genitalia/rectal: Exam deferred. Skin: Normal color, warm and dry. Extremities: Without clubbing, cyanosis or grossly pitting edema. Decreased range of motion with arthritic changes. Good capillary refill. Neuro: Cranial nerve II to XII grossly intact, no focalizing motor deficits and no tremor. Psych: Flat affect and depressed mood with patient being easily agitated. Poor insight into her chronic medical problems. No abnormal thought processes. Remote and recent memory appear to be grossly intact. Results Imaging Imaging Studies: EXAM: XR PORTABLE CHEST AP Date of exam: 03/08/2024 CLINICAL HISTORY: Ripped out dialysis catheter in right subclavian. TECHNIQUE: 2D digital imaging was performed. COMPARISON: CR,XR XR PORTABLE CHEST AP from 11/06/2023 FINDINGS: Single lordotic AP portable view. Compared to 11/08/2023. Heart size is upper normal. The mediastinum is not widened. Previously present right-sided central line has been removed. No pulmonary edema. However, there appears to be some mild infiltrate in the lung bases, somewhat difficult to assess because of lordotic technique here. There is also mild apical pleural thickening on the right side. IMPRESSION: Some increased markings both lung bases more so left side-probable infiltrate. Recommend nonportable PA and lateral views when clinically possible. These findings are difficult to interpret accurately on a single portable lordotic AP view. Central line no longer in place. There is no evidence of pulmonary edema. Exam: XR Chest Exam date and time: 03/08/2024 9:22 PM Age: 74 years old Clinical indication: Other: Questionable infiltrates on portable chest x-ray TECHNIQUE: Imaging protocol: Radiologic exam of the chest. Views: 2 views. COMPARISON: CR XR PORTABLE CHEST AP 03/08/2024 3:48 PM FINDINGS: Lungs: Bilateral lower lobe subsegmental atelectatic changes are noted. There is flattening of the hemidiaphragm suggesting the presence of emphysema. Pleural spaces: Blunting of the costophrenic angles are identified likely pleural thickening or small effusions. Heart/Mediastinum: Unremarkable. No cardiomegaly. Bones/joints: Unremarkable. IMPRESSION: Bilateral lower lobe subsegmental atelectatic changes and bilateral pleural thickening/small effusions. Follow-up Labs 03/08/24 21:40 03/08/24 21:40 Last Vital Signs Temp 36.3 C L 03/08/24 15:38 Pulse 72 03/08/24 15:38 Resp 15 03/08/24 15:38 BP 116/75 12/17/24 15:38 Pulse Ox 99 03/08/24 15:38 Time Spent Time spent with Patient: >75 minutes Time was spent: preparing to see the patient(eg.review tests), obtaining and/or reviewing separately otained hiistory, ordering medications,tests, procedures, referring, communicating with other health director of primary care, indepentently interpreting results and care coordination
--- NOTE | 2024-03-08 19:30 | DI.RAD_ITS ---
Exam(s) XR CHEST 2V PA LATERAL EXAM: XR CHEST 2V PA LATERAL CLINICAL HISTORY: Questionable infiltrates on portable chest x-ray TECHNIQUE: 2D digital imaging was performed of the chest. Two images were obtained. PA and lateral views were obtained. COMPARISON: CR,XR XR CHEST 2V PA LATERAL from 01/12/2022 CR,XR XR PORTABLE CHEST AP from 11/06/[address] CHEST WO from 12/15/2023 CR XR PORTABLE CHEST AP from 03/08/2024 FINDINGS: MEDIASTINUM: Normal. HEART: Normal. PULMONARY VASCULATURE: Normal. LUNGS: No focal consolidating infiltrates are seen. Atelectasis is seen in the left lung base. The right lung appears clear. The lungs are hyperinflated suggesting underlying COPD. PLEURAL SPACE: No pneumothorax is present. There is blunting of the costophrenic angles again seen l ikely reflecting scarring. Very small pleural effusions cannot be excluded. BONE:Within normal limits for the patient's age. OTHER FINDINGS:Normal. IMPRESSION: No focal consolidating infiltrates. DATA REPOSITORY: RADIATION DOSE DELIVERED:
--- NOTE | 2024-03-08 21:24 | W.PC.ACHO ---
Registration Status: Primary Language: Preferred Language: ED Information & Data Chief Complaint GenMedical 03/08/24 15:38 Chief Complaint GenMedical 03/08/24 15:34 Triage Note PT reports dialysis cath 03/08/24 15:34 fell out from a subclavian sight on the right side. the sight appears to be mildly swollen around the center point, area not tender. PT has no other complaints. Medical / Surgical History (Last Reviewed 03/08/24 @ 19:03 by Guy Hensley) Pneumonia Afib Paroxysmal atrial flutter On supplemental oxygen therapy CKD (chronic kidney disease) stage 3, GFR 30-59 ml/min Diabetes mellitus Discharge planning issues Diabetes mellitus (Last Reviewed 03/08/24 @ 19:03 by Guy Hensley) History of colonoscopy (~12/2021) Hx of hernia repair Most Recent Vital Signs Temperature 36.3 C L 03/08/24 21:17 Pulse 68 03/08/24 21:17 Respiratory Rate 15 03/08/24 21:17 Respiratory Effort Normal 03/08/24 15:38 Respiratory Depth Normal 03/08/24 15:38 Respiratory Pattern Normal 03/08/24 15:38 Blood Pressure 151/64 H 03/08/24 21:17 Blood Pressure Mean 90 03/08/24 17:46 Blood Pressure Position Sitting 03/08/24 15:38 Pulse Oximetry 99 03/08/24 21:17 Oxygen Delivery Method Room Air 03/08/24 15:38 Oxygen Flow Rate 0 03/08/24 15:38 Allergies codeine Allergy (Mild, Verified 12/18/23 12:23) Other (See Comment) Unknown fluticasone (From Advair Diskus) Allergy (Mild, Verified 12/18/23 12:23) Other (See Comment) pt. denies salmeterol (From Advair Diskus) Allergy (Mild, Verified 12/18/23 12:23) Other (See Comment) Sulfa (Sulfonamide Antibiotics) Allergy (Mild, Verified 12/18/23 12:23) Unknown Unknown sulfasalazine Adverse Reaction (Intermediate, Verified 12/18/23 12:23) Other (See Comment) Diagnostics 03/08/24 03/08/24 Range/Units 20:39 20:20 COVID-19 Source Pending Cancelled SARS-CoV-2 (PCR) Pending Cancelled Intake and Output - 24 Hour Total 03/08/24 15:23 thru 03/08/24 15:34 Weight 99.5 kg Falls Risk Assessment History of Falls Previous History 03/08/24 15:38 Contributing Factors No Factors 03/08/24 15:38 Ambulatory Aids Uses ambulatory device + 03/08/24 15:38 Tubes/Lines None 03/08/24 15:38 Gait Evaluation No gait disturbance 03/08/24 15:38 Cognition No cognitive impairment 03/08/24 15:38 Fall Total Score 45 03/08/24 15:38 Level of Risk Moderate Risk 03/08/24 15:38 Problems (Last Reviewed 03/08/24 @ 19:03 by Guy Hensley) Pulmonary infiltrates on CXR (Acute) CKD (chronic kidney disease) stage V requiring chronic dialysis (Chronic) Complication associated with dialysis catheter (Acute) Tobacco abuse (Chronic) COPD (chronic obstructive pulmonary disease) (Chronic) v v v v v v v v v Sending and/or Receiving Nurses: Please use comment section below to note any information pertinent to the patient hand-off not included above. Information / Comments: 74 yo Female at home her port was ripped out, second time this has happened port was mid-subclavian She says she was doing PT at home and saw her port of the floor, no active bleeding, states she did not feel after 30 minutes called 9-1-1 some swelling, a little tender for the nights, observation, keep comfy and in bed COVID negative plan is tomorrow down and back to [facility] Report received from: [place]on @ [id number]
[2024-03-08 21:59] LABS: HCT 33.5 % (36.0-46.0); HGB 10.8 g/dL (11.2-15.7); MCH 30.9 pg (27.0-33.0); MCHC 32.2 % (32.0-36.0); MCV 96 fL (80-95); Platelet Count 238 10^3/uL (130-400); RDW-SD 45.9 fL; WBC 9.38 10^3/uL (4.4-10.8)
[2024-03-08 22:15] LABS: ALT 22 U/L (14-59); AST 25 U/L (15-37); Albumin 2.4 g/dL (3.4-5.0); Alkaline Phosphatase 68 U/L (46-116); BUN 31 mg/dL (7-18); Bilirubin, Total 0.28 mg/dL (0.2-1.0); CREATININE 2.4 mg/dL (0.55-1.02); Calcium 8.8 mg/dL (8.5-10.1); Chloride 101 mmol/L (98-107); Estimated GFR 20.93 (mL/min/1.73m2); Glucose 81 mg/dL (74-106); Potassium 3.1 mmol/L (3.5-5.1); Sodium 140 mmol/L (136-145); Total Protein 5.8 g/dL (6.4-8.2)
[2024-03-08 22:29] LABS: Source Nasal/Nares
[2024-03-08] MEDS: Melatonin 3 MG TAB 6 MG PO (22:29)
[2024-03-08] MEDS: busPIRone 5 MG TAB 7.5 MG PO (22:29)
[2024-03-08] MEDS: traZODone 50 MG TAB PO (22:29)
[2024-03-08 23:13] LABS: COVID-19 PCR Negative (Negative)
--- NOTE | 2024-03-08 23:31 | DI.VRAD_ITS ---
PROCEDURE INFORMATION: Exam: XR Chest Exam date and time: 03/08/2024 9:22 PM Age: 74 years old Clinical indication: Other: Questionable infiltrates on portable chest x-ray TECHNIQUE: Imaging protocol: Radiologic exam of the chest. Views: 2 views. COMPARISON: CR XR PORTABLE CHEST AP 03/08/2024 3:48 PM FINDINGS: Lungs: Bilateral lower lobe subsegmental atelectatic changes are noted. There is flattening of the hemidiaphragm suggesting the presence of emphysema. Pleural spaces: Blunting of the costophrenic angles are identified likely pleural thickening or small effusions. Heart/Mediastinum: Unremarkable. No cardiomegaly. Bones/joints: Unremarkable. IMPRESSION: Bilateral lower lobe subsegmental atelectatic changes and bilateral pleural thickening/small effusions. Dictated and Authenticated by: Damian Curtis MD. Ordering:TIM Tovar MD
[2024-03-09 06:56] LABS: ALT 26 U/L (14-59); AST 25 U/L (15-37); Albumin 2.2 g/dL (3.4-5.0); Alkaline Phosphatase 66 U/L (46-116); Anion Gap 6.1 mmol/L (3-11); BUN 35 mg/dL (7-18); Bilirubin, Total 0.23 mg/dL (0.2-1.0); CO2 32.9 mmol/L (21.0-32.0); CREATININE 2.6 mg/dL (0.55-1.02); Calcium 8.5 mg/dL (8.5-10.1); Chloride 103 mmol/L (98-107); Estimated GFR 19.02 (mL/min/1.73m2); Glucose 113 mg/dL (74-106); Potassium 3.1 mmol/L (3.5-5.1); Sodium 142 mmol/L (136-145); Total Protein 5.4 g/dL (6.4-8.2)
[2024-03-09 07:29] VITALS: BP 111/57; PULSE 78; RESP 18; TEMP 36.8; O2SAT 99
[2024-03-09 07:46] LABS: HCT 31.8 % (36.0-46.0); HGB 10.4 g/dL (11.2-15.7); MCHC 32.7 % (32.0-36.0); MCV 98 fL (80-95); MPV 9.3 fL (8.0-11.0); Platelet Count 234 10^3/uL (130-400); RBC 3.25 10^6/uL (3.93-5.22); RDW 13.1 % (11.7-14.6); RDW-SD 47.1 fL; WBC 8.87 10^3/uL (4.4-10.8)
[2024-03-09 08:38] VITALS: O2SAT 99
[2024-03-09] MEDS: busPIRone 5 MG TAB 7.5 MG PO ×2 (08:50→20:23)
[2024-03-09] MEDS: Amiodarone 200 MG TAB PO (08:50)
[2024-03-09] MEDS: Omega-3 Fatty Acids 1000 MG CAP PO (08:50)
[2024-03-09] MEDS: Cyanocobalamin 500 MCG TAB PO (08:50)
[2024-03-09] MEDS: Escitalopram 20 MG TAB PO (08:50)
[2024-03-09] MEDS: Lidocaine 5% Patch 1 PATCH TP (08:52)
--- NOTE | 2024-03-09 11:24 | W.PM.PROGNOT ---
Date of Service Date of service: 03/09/24 Time of Service: 17:00 Assessment and Plan Assessment and plan (1) Complication associated with dialysis catheter: Start date: 03/08/24 Status: Acute Assessment and plan: This is a 74-year-old lady with dislodged her subclavian catheter X 3 for chronic hemodialysis with CKD stage V Still refusing AV fistula . [facility] transfer center contacted to f/u on time for procedure -Spoke to Dr. Alvarenga, order faxed -Will be scheduled for 03/10 Continue hemodialysis locally on Thursday, Thursday and Thursday s/p placement via RCT (2) Pulmonary infiltrates on CXR: Start date: 03/08/24 Status: Acute Assessment and plan: 2 view chest x-ray did not reveal any acute infiltrates and no treatment was initiated. Patient does have some chronic changes in the lower lobe. Home O2 at 2l/min w sat 99%- patient insistent on using O2, remains afebrile, no cough,tachypnea or leukocytosis, (3) CKD (chronic kidney disease) stage V requiring chronic dialysis: Status: Chronic Assessment and plan: End-stage on hemodialysis. Patient should consider AV fistula- has refused in the past and still refusing (4) Diabetes mellitus: Assessment and plan: On Lantus at home resumed at 22 units SC daily Continue glucometer measurements before meals and at bedtime with sliding scale insulin coverage. Hold outpatient oral medical therapy (5) Tobacco abuse: Status: Chronic Assessment and plan: Advised cessation long-term discussed with patient and immobilization and increased risk for pneumonia. Consider PRN NRT if needed (6) COPD (chronic obstructive pulmonary disease): Status: Chronic Assessment and plan: Continue outpatient therapy w Spiriva, Advair PRN nebs (7) Afib: Assessment and plan: Continue home dose Amiodarone;not on anticoagulation On DVT prophylaxis - should be held prior to procedure. (8) Hypokalemia: Status: Inactive Assessment and plan: Oral supplementation BMP in AM Mg level adequate (9) Discharge planning issues: Assessment and plan: After the cath placement at [facility], patient most likely to go home with initial plan to pursue dialysis locally Discussed with Dr. Saucedo Subjective Subjective Patient reports: no new complaints, tolerating liquids well, tolerating a regular diet and voiding w/o difficulty; denies nausea, vomiting, shortness of breath or fever Exam Narrative Exam Narrative: HENMT: Facial structures with normal appearance Eyes: Well aligned Neck: Normal ROM Neuro:alert and oriented X3 . No neurological focal deficit Resp: Unlabored breathing, clear lung bilaterally Cardio: regular rhythm, S1, S2, murmur, capillary refill<3 sec., bilateral radial and dorsalis pedis pulses are positive, palpable GI: Abdomen is not distended, soft and non tender, bowel sounds are present : Negative Costovertebral angle tenderness Integumentary: No skin lesions or rash, light purple discoloration to right subclavian area Psych: RASS 0, congruent mood and normal affect. Objective Last Vital Signs Temp 36.8 C 03/09/24 07:29 Pulse 78 03/09/24 07:29 Resp 18 03/09/24 07:29 BP 111/57 L 03/09/24 07:29 Pulse Ox 99 03/09/24 08:38 Laboratory Results - last 24 hr 03/08/24 03/08/24 03/08/24 20:20 21:40 22:20 WBC 9.38 RBC 3.50 L Hgb 10.8 L Hct 33.5 L MCV 96 H MCH 30.9 MCHC 32.2 RDW 13.0 Plt Count 238 MPV 9.0 Sodium 140 Potassium 3.1 L Chloride 101 Carbon Dioxide 29.0 Anion Gap 10.0 BUN 31 H Creatinine 2.4 H Est GFR (CKD-EPI 2020) 20.93 Glucose 81 Calcium 8.8 Total Bilirubin 0.28 AST 25 ALT 22 Alkaline Phosphatase 68 Total Protein 5.8 L Albumin 2.4 L COVID-19 Source Cancelled Nasal/Nares SARS-CoV-2 (PCR) Cancelled Negative 03/09/24 06:22 WBC 8.87 RBC 3.25 L Hgb 10.4 L Hct 31.8 L MCV 98 H MCH 32.0 MCHC 32.7 RDW 13.1 Plt Count 234 MPV 9.3 Sodium 142 Potassium 3.1 L Chloride 103 Carbon Dioxide 32.9 H Anion Gap 6.1 BUN 35 H Creatinine 2.6 H Est GFR (CKD-EPI 2020) 19.02 Glucose 113 H Calcium 8.5 Total Bilirubin 0.23 AST 25 ALT 26 Alkaline Phosphatase 66 Total Protein 5.4 L Albumin 2.2 L COVID-19 Source SARS-CoV-2 (PCR) Time Spent with Patient Time Spent with Patient: >50 minutes Time was spent: preparing to see the patient(eg.review tests), obtaining and/or reviewing separately otained hiistory, ordering medications,tests, procedures, referring, communicating with other health home health care coordinator, indepentently interpreting results, counseling the patient and care coordination
[2024-03-09 11:32] LABS: Magnesium 1.8 mg/dL (1.8-2.4)
[2024-03-09] MEDS: Insulin Glargine 300 UNITS/3 ML PEN 22 UNITS SC (12:31)
[2024-03-09] MEDS: Potassium Chloride 20 MEQ TABCR 40 MEQ PO ×2 (14:10→20:23)
[2024-03-09 15:33] VITALS: BP 116/58; PULSE 62; RESP 18; TEMP 36.6; O2SAT 100
--- NOTE | 2024-03-09 16:11 | CHAPLAIN ---
Shira said she is not having a good day. She is waiting to go to [facility] to have a port replaced, a procedure that she's had before. She hasn't been able to eat or drink since midnight because her transfer has not been arranged yet. She said the bed is uncomfortable here and she's bored. She asked for a word search book that I was able to get from Care Management. Shira said that family members will not be able to go with her to [facility] or meet her there.
--- NOTE | 2024-03-09 16:30 | PDOC.CMIN ---
Date of service: 03/09/24 Time of Service: 16:30 Care Management Initial Assmt Initial Assessment Reason for Hospitalization: IV access malfunction Functional Status/Living Situation Patient Presentation: Shira was lying in bed when CM met with her. Shira was admitted last evening because her subclavian catheter needed for dialysis had gotten dislodged. She had no transportation to [facility] to have it replaced so she was admitted overnight into Observation. Shira expressed frustration with having to remain NPO when it was not clear whether or not she would be going to [facility] for her procedure today. As it turned out, they were unable to take her today so she was allowed to eat and will be sent tomorrow for a down and back. Shira lives in a mobile home in [place] with her granddaughter Niecy who provides her care. She has 2 other grandchildren and 2 great grandchildren. Her only child is her daughter Effie. Shira is essentially wheelchair bound and needs assistance with ADLs. Town of Residence: [place] Resides with: Other (granddaughter) Significant Other/Family: [employer] Employment Status: Retired Instrumental Activities of Daily Living (ADLs): Requires support with Dishes/food prep, Groceries and Transportation Medications Medication Management: No Issues/Barriers identified Advance Directives Advance Directives: Do you have an Advance Directive: N 12/18/23 08:21 AD On File at [facility]: N 12/18/23 08:21 Date Asked 03/08/24 03/08/24 15:41 AD Date Reviewed COLST On File at [facility] COLST Date Scanned Code Status Resuscitation Status Full Code Insurance Coverage/Financial Issues Insurance: [facility] Medicare replacement Care Team Visit Care Team Role Provider Type Yenny Adkins MD Primary Care Provider [facility] STAFF PHYSICIAN Mazin Wagner DO Emergency Provider [facility] STAFF PHYSICIAN Guy Hensley Admit Provider NON-[facility] STAFF PHYSICIAN Attending Provider Discharge Potential Discharge Needs: PCP F/U Appt Anticipated Barriers to Discharge: None Identified Patient/Family Education Needs: Review discharge instructions, discuss Ask Me Three Transportation: RCT Plan: Shira is scheduled to go to [facility] tomorrow via EMS to Interventional Radiology for replacement of her subclavian catheter. It will be a down and back trip after which she will likely be discharged. CM will follow and continue to assess for discharge needs. PFSH All Active Problems (Updated 03/08/24 @ 19:20 by Guy Hensley) Pulmonary infiltrates on CXR (Acute) CKD (chronic kidney disease) stage V requiring chronic dialysis (Chronic) Complication associated with dialysis catheter (Acute) COVID-19 (Acute) Difficulty sleeping (Acute) Trazadone helped - started @ [facility] hospitalization? Hospitalization within last 30 days (Acute) [facility] D/C, 10/30/23, w/o meds @ home (TBD).. Home via RCT. Family avble to help if/when called. Anxiety (Chronic) Hemodialysis patient (Chronic) 08/19/23 Per PCP notes pt gets diaslysis at [facility] Hyperphosphatemia associated with renal failure (Acute) Right bundle branch block (Acute) Hypocalcemia (Acute) Uremia of renal origin (Acute) High anion gap metabolic acidosis (Acute) Hyperkalemia (Acute) Hyponatremia (Acute) Leukocytosis (Acute) Diabetes (Chronic) Acute on chronic respiratory failure with hypoxia (Acute) Acute on chronic kidney failure (Acute) CAP (community acquired pneumonia) (Acute) Acute on chronic renal insufficiency (Acute) Sepsis (Acute) Aortic stenosis (Chronic) Obesity (Chronic) HLD (hyperlipidemia) (Acute) Hypomagnesemia (Acute) Acute kidney injury superimposed on chronic kidney disease (Acute) Acute on chronic respiratory failure with hypoxia (Acute) Tick bite (Acute) Parainfluenza (Acute) Type II diabetes mellitus (Acute) COPD exacerbation (Acute) Acute hyperkalemia (Acute) Pneumonia (Acute) Acute exacerbation of chronic obstructive pulmonary disease (Acute) Hypoxia (Acute) Abnormal ECG (Acute) Weakness (Acute) Diarrhea (Acute) Congestive heart failure (Chronic) Shortness of breath (Acute) Medication monitoring encounter (Acute) Tubular adenoma of colon (Acute) Diverticulosis (Chronic) Colon polyps (Chronic) Anemia (Chronic) Pleural effusion (Acute) Tobacco abuse (Chronic) Depression (Chronic) Hypertension (Chronic) Dental abscess (Acute) COPD (chronic obstructive pulmonary disease) (Chronic) Personal history of nicotine dependence (Acute) Right ankle injury (Acute) Anemia (Chronic) Medical History Pneumonia Afib 08/19/23 Per PCP notes on aiodarone [facility] Paroxysmal atrial flutter On supplemental oxygen therapy on O2 of night. Is able to lay flat CKD (chronic kidney disease) stage 3, GFR 30-59 ml/min Pt. denies Diabetes mellitus 10/21/21 [facility] visit not well controlled, A1C 8.2 Discharge planning issues Diabetes mellitus Surgical History History of colonoscopy (~12/2021) Hx of hernia repair Social History Smoking/Tobacco Use Status: Former Tobacco Use Quit Date: 03/23/18 Tobacco: How many years used: 65 Smoking risk assessment performed?: Yes Alcohol Intake: current Alcohol Intake frequency: holidays/special occasions only Drug use: Never Substance use type: does not use Housing: house Do you feel safe at home: Yes Do you feel safe in your relationship?: Yes SDOH(Care Management) Screening Will the Patient Participate in the Screening?: Declined to provide
[2024-03-09 19:26] VITALS: BP 116/54; PULSE 63; RESP 18; TEMP 36.2; O2SAT 98
[2024-03-09] MEDS: traZODone 50 MG TAB PO (20:22)
[2024-03-09] MEDS: Melatonin 3 MG TAB 6 MG PO (20:22)
[2024-03-09] MEDS: Rosuvastatin 10 MG TAB PO (20:22)
[2024-03-10 02:51] VITALS: BP 113/55; PULSE 62; RESP 18; TEMP 36.4; O2SAT 97
[2024-03-10 07:03] LABS: Abs Immature Grans 0.03 10^3/uL (0.0-0.06); Absolute Basophil Count 0.06 10^3/uL (0.0-0.2); Absolute Eosinophil Count 0.21 10^3/uL (0.0-0.7); Absolute Lymphocyte Count 1.43 10^3/uL (1.2-3.4); Absolute Monocyte Count 0.65 10^3/uL (0.1-0.8); Absolute Neutrophil Count 5.32 10^3/uL (1.2-6.7); Basophils % 0.8 %; Eosinophils % 2.7 %; HCT 31.6 % (36.0-46.0); HGB 10.1 g/dL (11.2-15.7); Immature Grans % 0.4 %; Lymphocytes % 18.6 %; MCH 31.3 pg (27.0-33.0); MCV 98 fL (80-95); MPV 9.3 fL (8.0-11.0); Monocytes % 8.4 %; Neutrophils % 69.1 %; Platelet Count 219 10^3/uL (130-400); RBC 3.23 10^6/uL (3.93-5.22); RDW 12.9 % (11.7-14.6); RDW-SD 45.8 fL
[2024-03-10 07:23] VITALS: BP 122/58; PULSE 67; RESP 18; TEMP 36.5; O2SAT 97
[2024-03-10 07:24] LABS: Anion Gap 4.3 mmol/L (3-11); BUN 42 mg/dL (7-18); CO2 31.7 mmol/L (21.0-32.0); CREATININE 2.5 mg/dL (0.55-1.02); Calcium 9.3 mg/dL (8.5-10.1); Chloride 106 mmol/L (98-107); Estimated GFR 19.93 (mL/min/1.73m2); Glucose 107 mg/dL (74-106); Sodium 142 mmol/L (136-145)
[2024-03-10 08:32] VITALS: O2SAT 93
--- NOTE | 2024-03-10 10:08 | W.PM.PROGNOT ---
Date of Service Date of service: 03/10/24 Time of Service: 10:11 Assessment and Plan Assessment and plan (1) Complication associated with dialysis catheter: Start date: 03/08/24 Status: Acute Assessment and plan: This is a 74-year-old lady with dislodged her subclavian catheter X 3 for chronic hemodialysis with CKD stage V Still refusing AV fistula . [facility] transfer center contacted to f/u on time for procedure -Spoke to Dr. Alvarenga, order faxed -Will be scheduled for 03/10 Continue hemodialysis locally on Thursday, Thursday and Thursday s/p placement via RCT (2) Pulmonary infiltrates on CXR: Start date: 03/08/24 Status: Acute Assessment and plan: 2 view chest x-ray did not reveal any acute infiltrates and no treatment was initiated. Patient does have some chronic changes in the lower lobe. Home O2 at 2l/min w sat 99%- patient insistent on using O2, remains afebrile, no cough,tachypnea or leukocytosis, (3) CKD (chronic kidney disease) stage V requiring chronic dialysis: Status: Chronic Assessment and plan: End-stage on hemodialysis. Patient should consider AV fistula- has refused in the past and still refusing (4) Diabetes mellitus: Assessment and plan: On Lantus at home resumed at 22 units SC daily Continue glucometer measurements before meals and at bedtime with sliding scale insulin coverage. Hold outpatient oral medical therapy (5) Tobacco abuse: Status: Chronic Assessment and plan: Advised cessation long-term discussed with patient and immobilization and increased risk for pneumonia. Consider PRN NRT if needed (6) COPD (chronic obstructive pulmonary disease): Status: Chronic Assessment and plan: Continue outpatient therapy w Spiriva, Advair PRN nebs (7) Afib: Assessment and plan: Continue home dose Amiodarone;not on anticoagulation On DVT prophylaxis - should be held prior to procedure. (8) Hypokalemia: Status: Inactive Assessment and plan: Oral supplementation BMP in AM Mg level adequate (9) Discharge planning issues: Assessment and plan: After the cath placement at [facility], patient most likely to go home with initial plan to pursue dialysis locally Discussed with Dr. Saucedo Exam Narrative Exam Narrative: HENMT: Facial structures with normal appearance Eyes: Well aligned Neck: Normal ROM Neuro:alert and oriented X3 . No neurological focal deficit Resp: Unlabored breathing, clear lung bilaterally Cardio: regular rhythm, S1, S2, murmur, capillary refill<3 sec., bilateral radial and dorsalis pedis pulses are positive, palpable GI: Abdomen is not distended, soft and non tender, bowel sounds are present : Negative Costovertebral angle tenderness Integumentary: No skin lesions or rash, light purple discoloration to right subclavian area Psych: RASS 0, congruent mood and normal affect. Objective Last Vital Signs Temp 36.5 C 03/10/24 07:23 Pulse 67 03/10/24 07:23 Resp 18 03/10/24 07:23 BP 122/58 L 03/10/24 07:23 Pulse Ox 93 03/10/24 08:32 Laboratory Results - last 24 hr 03/09/24 03/10/24 06:22 06:25 WBC 7.70 RBC 3.23 L Hgb 10.1 L Hct 31.6 L MCV 98 H MCH 31.3 MCHC 32.0 RDW 12.9 Plt Count 219 MPV 9.3 Immature Gran % 0.4 Neutrophils % 69.1 Lymphocytes % 18.6 Monocytes % 8.4 Eosinophils % 2.7 Basophils % 0.8 Nucleated RBC % 0.0 Absolute Neutrophils 5.32 Absolute Lymphocytes 1.43 Absolute Monocytes 0.65 Absolute Eosinophils 0.21 Absolute Basophils 0.06 Sodium 142 Potassium 4.0 Chloride 106 Carbon Dioxide 31.7 Anion Gap 4.3 BUN 42 H Creatinine 2.5 H Est GFR (CKD-EPI 2020) 19.93 Glucose 107 H Calcium 9.3 Magnesium 1.8
[2024-03-10] MEDS: busPIRone 5 MG TAB 7.5 MG PO ×2 (10:12→19:53)
[2024-03-10] MEDS: Omega-3 Fatty Acids 1000 MG CAP PO (10:12)
[2024-03-10] MEDS: Lidocaine 5% Patch 1 PATCH TP (10:12)
[2024-03-10] MEDS: Potassium Chloride 20 MEQ TABCR 40 MEQ PO ×2 (10:13→19:53)
[2024-03-10] MEDS: Escitalopram 20 MG TAB PO (10:14)
[2024-03-10] MEDS: Amiodarone 200 MG TAB PO (10:14)
[2024-03-10] MEDS: Insulin Glargine 300 UNITS/3 ML PEN 22 UNITS SC (10:14)
[2024-03-10] MEDS: Cyanocobalamin 500 MCG TAB PO (10:14)
--- NOTE | 2024-03-10 14:53 | CMDISCH_ITS ---
Date of service: 03/10/24 Time of Service: 14:53 LACE Index Scoring Tool Questions: Length of Stay (in days): 2 Was the patient admitted via the E.D.?: Yes Comorbidities: Diabetes w/o Complication, Congestive Heart Failure, Chronic Pulmonary Disease and Liver or Renal Disease E.D. Visits: 6 Answers: Total Score: 14 Risk of Readmission: High Risk Care Management Discharge Plan Reason for Hospitalization: transportation issue Discharge Plan: Shira will be discharged home with no new services. She will follow up with her community providers and transport via [facility]. Patient/Family Education Needs: review of discharge instructions, follow up plan and discuss Ask Me Three Services Needed at Discharge: Transportation SDOH Health Related Social Needs: No Data to Display
--- NOTE | 2024-03-10 17:34 | NUR.NOTE ---
Nursing Note: Pt returned from [facility] via [facility]
[2024-03-10 17:44] VITALS: BP 136/75; PULSE 63; RESP 20; TEMP 36.4; O2SAT 99
--- NOTE | 2024-03-10 18:12 | W.PM.DS.N ---
Date of service: 03/10/24 Time of Service: 18:12 DS: Diagnosis Discharge Diagnosis (1) Complication associated with dialysis catheter: Status: Acute (2) Pulmonary infiltrates on CXR: Status: Acute (3) CKD (chronic kidney disease) stage V requiring chronic dialysis: Status: Chronic (4) Diabetes mellitus: (5) Tobacco abuse: Status: Chronic (6) COPD (chronic obstructive pulmonary disease): Status: Chronic (7) Afib: (8) Hypokalemia: Status: Inactive (9) Discharge planning issues: Discharge Plan Disposition Patient Disposition: Home W/Home Health Services Condition: Improving Discharge Details Reason For Visit: CKD on dialysis, Dislodged right subclavian dialys Admit Date/Time: 03/08/24 19:33 Admit Provider: Guy Hensley Attending Provider: Guy Hensley Primary Care Provider: Yenny Adkins V Hospital Course Hospital Course: This 80-year-old female patient on dialysis on dialysis on Thursday with a past medical history of paroxysmal A-fib, CKD, DM type II, not anticoagulated presented to the ED on 03/08/2024 via EMS due to removal of a right subclavian dialysis catheter. Dialysis catheter also had been pulled out 3 months prior to presentation reportedly after stitches were removed by home health accidentally; this catheter was replaced by [facility] interventional radiology a few days later. At the time the patient had no complaints of chest pain or shortness of breath, chills fever, gastrointestinal or genitourinary symptoms. Workup in the ED showed an unremarkable CBC and chemistry within the patient's normal values. The patient was admitted to the medical surgical floor by the hospitalist team pending reinsertion of her dialysis catheter by interventional radiology at [facility]. Today the patient went to [facility] and had a dialysis catheter reinserted to right subclavian area. The patient remained stable and will be discharged home with resumption of all the home health services she used to have prior to admission. The patient will need to follow-up with her primary care practitioner within 7 days of discharge and resume her hemodialysis regimen as per prior to admission. Discussed with Dr. Saucedo. Home Meds and New Rx's Prescriptions: Continued Trelegy Ellipta 100-62.5-25 mcg blister with device 1 inh INHALATION DAILY Rx Instructions: filled, Rx sent by [facility] cyanocobalamin (vitamin B-12) 250 mcg tablet 500 mcg PO DAILY Patient Comments: TAKE ONE TABLET BY MOUTH EVERY DAY 08/19/23 Per PCP notes [facility] omega-3 fatty acids-fish oil [Fish Oil] 360-1,200 mg capsule 1 cap PO DAILY (DME) Oxygen Tank See Rx Instructions .ROUTE .MEDSUPPLY Qty: 1 Rx Instructions: As directed,2L with physical activity. melatonin 3 mg capsule 6 mg PO QHS polyethylene glycol 3350 [Miralax] 17 gram/dose powder 17 g PO DAILY albuterol sulfate 2.5 mg /3 mL (0.083 %) solution for nebulization See Rx Instructions inhalation Q4H PRN (Reason: shortness of breath or wheezing) Qty: 90 2RF Rx Instructions: BID & PRN SOB, per [facility] D/C (10/2023) inhaled every 4 hours PRN; amiodarone [Pacerone] 200 mg Tablet 200 mg PO DAILY Qty: 0 0RF Inhaler, Assist Devices [Pocket Chamber] 1 ea miscellaneous DIRECTED Qty: 0 0RF insulin glargine [Lantus Solostar U-100 Insulin] 100 unit/mL (3 mL) insulin pen 22 unit subcut DAILY lidocaine 5 % adhesive patch,medicated 1 patch topical DAILY Rx Instructions: leave on most painful area for up to 12 hrs Nicotrol 10 mg cartridge 10 mg inhalation DIRECTED PRN Rx Instructions: Q1-2Hrs escitalopram oxalate [Lexapro] 20 mg Tablet 20 mg PO DAILY albuterol sulfate [ProAir HFA] 90 mcg/actuation Hfa Aerosol Inhaler 2 puff Inhalation Q6H PRN PRN (DME) nebulizers [facility] See Dose Instructions .ROUTE .MEDSUPPLY Qty: 1 0RF Dose Instruction: As directed Rx Instructions: As directed rosuvastatin 10 mg tablet 10 mg PO DAILY Qty: 30 0RF Palmira-Frantz 0.8 mg tablet 1 tab PO DAILY Patient Comments: TAKE ONE TABLET BY MOUTH EVERY DAY acetaminophen 325 mg capsule 650 mg PO BID ipratropium-albuterol 0.5 mg-3 mg(2.5 mg base)/3 mL solution for nebulization 3 ml inhalation Q4H PRN (Reason: wheezing) Rx Instructions: per [facility] med list, per HH NUrsing rpt trazodone 50 mg tablet 50 mg PO QHS PRN Discharge Instructions Referrals: Yenny Adkins MD [Primary Care Provider] - (Follow- up with PCP within 7 days of discharge please) Activity:: Activity as Tolerated Equipment/Supplies:: walker WC Diet:: heart helathy Discharge Orders Discharge Orders: Discharge Order (Routine); Ordered 03/10/24 Ordered By: Shayla Zavala DS: Summary Time Spent with Patient providing and/or coordinating discharge services: Greater than 30 minutes Status at Discharge Functional status at discharge: wheelchair bound (walker for transfers) Overall status at discharge: patient is back to baseline Mental Status: mental status grossly normal Speech and Movement: speech and movement normal Mood: congruent mood Affect: normal affect Quality:SDOH Health Related Social Needs: No Data to Display Exam Narrative Exam Narrative: HENMT: Facial structures with normal appearance Eyes: Well aligned Neck: Normal ROM Neuro:alert and oriented X3 . No neurological focal deficit Resp: Unlabored breathing, clear lung bilaterally Cardio: regular rhythm, S1, S2, murmur, capillary refill<3 sec., bilateral radial and dorsalis pedis pulses are positive, palpable GI: Abdomen is not distended, soft and non tender, bowel sounds are present : Negative Costovertebral angle tenderness Integumentary: No skin lesions or rash, light purple discoloration to right subclavian area Psych: RASS 0, congruent mood and normal affect. Psych Mental Status: mental status grossly normal Speech and Movement: speech and movement normal Mood: congruent mood Affect: normal affect DS: Data Vitals/I&O Vitals and I&O: Vital Signs Temperature 36.4 C L 03/10/24 17:44 Temperature Source Tympanic 03/10/24 17:44 Pulse 63 03/10/24 17:44 Pulse Rhythm Regular 03/08/24 21:31 Respiratory Rate 20 03/10/24 17:44 Respiratory Effort Normal 03/08/24 21:31 Respiratory Depth Normal 03/08/24 21:31 Respiratory Pattern Normal 03/08/24 15:38 Blood Pressure 136/75 03/10/24 17:44 Blood Pressure Mean 90 03/08/24 17:46 Blood Pressure Position Sitting 03/08/24 15:38 Pulse Oximetry 99 03/10/24 17:44 Oxygen Delivery Method Nasal Cannula 03/10/24 17:44 Oxygen Flow Rate 2 03/10/24 17:44 Pain Level 0 03/10/24 02:51 Comment RN notified 03/10/24 02:51 Intake & Output 03/09/24 03/10/24 03/10/24 23:59 11:59 23:59 Intake Total 200 / 827 Output Total 200 / 400 210 / 210 Balance 0 / 427 -210 / -210 Weight 95.8 kg Intake: Oral 200 / 827 Output: Urine 200 / 400 210 / 210 Other: Urine Color Yellow Yellow Urine Appearance Clear Clear Urine Odor Strong None Comment i checked pt for incontinence, dry at this time. Stool Size Small Stool Characteristics Hard Data Completed and Pending Labs on day of discharge: Labs from last 24 hours 03/10/24 06:25 WBC 7.70 RBC 3.23 L Hgb 10.1 L Hct 31.6 L MCV 98 H MCH 31.3 MCHC 32.0 RDW 12.9 Plt Count 219 MPV 9.3 Immature Gran % 0.4 Neutrophils % 69.1 Lymphocytes % 18.6 Monocytes % 8.4 Eosinophils % 2.7 Basophils % 0.8 Nucleated RBC % 0.0 Absolute Neutrophils 5.32 Absolute Lymphocytes 1.43 Absolute Monocytes 0.65 Absolute Eosinophils 0.21 Absolute Basophils 0.06 Sodium 142 Potassium 4.0 Chloride 106 Carbon Dioxide 31.7 Anion Gap 4.3 BUN 42 H Creatinine 2.5 H Est GFR (CKD-EPI 2020) 19.93 Glucose 107 H Calcium 9.3 PFSH All Active Problems (Updated 03/08/24 @ 19:20 by Guy Hensley) Pulmonary infiltrates on CXR (Acute) CKD (chronic kidney disease) stage V requiring chronic dialysis (Chronic) Complication associated with dialysis catheter (Acute) COVID-19 (Acute) Difficulty sleeping (Acute) Trazadone helped - started @ [facility] hospitalization? Hospitalization within last 30 days (Acute) [facility] D/C, 10/30/23, w/o meds @ home (TBD).. Home via RCT. Family avble to help if/when called. Anxiety (Chronic) Hemodialysis patient (Chronic) 08/19/23 Per PCP notes pt gets diaslysis at [facility] Hyperphosphatemia associated with renal failure (Acute) Right bundle branch block (Acute) Hypocalcemia (Acute) Uremia of renal origin (Acute) High anion gap metabolic acidosis (Acute) Hyperkalemia (Acute) Hyponatremia (Acute) Leukocytosis (Acute) Diabetes (Chronic) Acute on chronic respiratory failure with hypoxia (Acute) Acute on chronic kidney failure (Acute) CAP (community acquired pneumonia) (Acute) Acute on chronic renal insufficiency (Acute) Sepsis (Acute) Aortic stenosis (Chronic) Obesity (Chronic) HLD (hyperlipidemia) (Acute) Hypomagnesemia (Acute) Acute kidney injury superimposed on chronic kidney disease (Acute) Acute on chronic respiratory failure with hypoxia (Acute) Tick bite (Acute) Parainfluenza (Acute) Type II diabetes mellitus (Acute) COPD exacerbation (Acute) Acute hyperkalemia (Acute) Pneumonia (Acute) Acute exacerbation of chronic obstructive pulmonary disease (Acute) Hypoxia (Acute) Abnormal ECG (Acute) Weakness (Acute) Diarrhea (Acute) Congestive heart failure (Chronic) Shortness of breath (Acute) Medication monitoring encounter (Acute) Tubular adenoma of colon (Acute) Diverticulosis (Chronic) Colon polyps (Chronic) Anemia (Chronic) Pleural effusion (Acute) Tobacco abuse (Chronic) Depression (Chronic) Hypertension (Chronic) Dental abscess (Acute) COPD (chronic obstructive pulmonary disease) (Chronic) Personal history of nicotine dependence (Acute) Right ankle injury (Acute) Anemia (Chronic) Medical History Pneumonia Afib 08/19/23 Per PCP notes on aiodarone [facility] Paroxysmal atrial flutter On supplemental oxygen therapy on O2 of night. Is able to lay flat CKD (chronic kidney disease) stage 3, GFR 30-59 ml/min Pt. denies Diabetes mellitus 10/21/21 [facility] visit not well controlled, A1C 8.2 Discharge planning issues Diabetes mellitus Surgical History History of colonoscopy (~12/2021) Hx of hernia repair Social History Smoking/Tobacco Use Status: Former Tobacco Use Quit Date: 03/23/18 Tobacco: How many years used: 65 Smoking risk assessment performed?: Yes Alcohol Intake: current Alcohol Intake frequency: holidays/special occasions only Drug use: Never Substance use type: does not use Housing: house Do you feel safe at home: Yes Do you feel safe in your relationship?: Yes Time Spent with Patient Time Spent with Patient: 70-84 minutes4 Time was spent: preparing to see the patient(eg.review tests), obtaining and/or reviewing separately otained hiistory, ordering medications,tests, procedures, referring, communicating with other health veterinarian laboratory animal care, indepentently interpreting results, counseling the patient and care coordination
[2024-03-10] MEDS: traZODone 50 MG TAB PO (19:53)
[2024-03-10] MEDS: Rosuvastatin 10 MG TAB PO (19:53)
[2024-03-10] MEDS: Melatonin 3 MG TAB 6 MG PO (19:53)
--- NOTE | 2024-03-10 20:08 | PGE_ITS ---
Date of Service Date of service: 03/10/24 Time of Service: 20:08 Assessment and Plan Assessment and plan (1) Complication associated with dialysis catheter: Start date: 03/08/24 Status: Acute Assessment and plan: Dislodged her subclavian catheter X 3 ; on chronic hemodialysis with CKD stage V Refusing AV fistula . [facility] [place] IR round trip completed today for catheter replacement: Catheter intact in the right chest subclavian area Continue hemodialysis locally on Thursday, Thursday and Thursday s/p placement (2) Pulmonary infiltrates on CXR: Start date: 03/08/24 Status: Acute Assessment and plan: on admission, 2 view chest x-ray did not reveal any acute infiltrates and no treatment was initiated; some chronic changes noticed in the lower lobes. Home O2 at 2l/min w sat 93- 99% - patient insistent on using O2, remains afebrile, no cough,tachypnea or leukocytosis (3) CKD (chronic kidney disease) stage V requiring chronic dialysis: Status: Chronic Assessment and plan: End-stage on hemodialysis. Patient should consider AV fistula- still refusing Continue OPT Tx (4) Diabetes mellitus: Assessment and plan: continue home medicine regimen with Lantus SC daily Ongoing glucometer measurements before meals and at bedtime with sliding scale insulin coverage. Hold outpatient oral medical therapy and resume at discharge (5) Tobacco abuse: Status: Chronic Assessment and plan: Still smoking on home O2. Advised cessation long-term discussed with patient and immobilization and increased risk for pneumonia. PRN NRT if needed (6) COPD (chronic obstructive pulmonary disease): Status: Chronic Assessment and plan: Continue outpatient therapy Ongoing PRN nebs (7) Afib: Assessment and plan: On home dose Amiodarone;not on anticoagulation On DVT prophylaxis - should be held prior to procedure then resume . (8) Hypokalemia: Status: Inactive Assessment and plan: Oral supplementation completed and resolved Mg level was adequate (9) Discharge planning issues: Assessment and plan: After the cath placement at [facility], patient most likely to go home with initial plan to pursue dialysis locally D/C in AM Discussed with Dr. Saucedo Subjective Subjective Patient reports: no new complaints, tolerating liquids well, tolerating a regular diet, voiding w/o difficulty, no bowel movement and shortness of breath; denies diarrhea, nausea, vomiting or fever Exam Narrative Exam Narrative: HENMT: Facial structures with normal appearance Eyes: Well aligned Neck: Normal ROM Neuro:alert and oriented X3 . No neurological focal deficit Resp: Unlabored breathing, clear lung bilaterally Cardio: regular rhythm, S1, S2, murmur, capillary refill<3 sec., bilateral radial and dorsalis pedis pulses are positive, palpable GI: Abdomen is not distended, soft and non tender, bowel sounds are present : Negative Costovertebral angle tenderness Integumentary: No skin lesions or rash, light purple discoloration to right subclavian area Psych: RASS 0, congruent mood and normal affect. Objective Last Vital Signs Temp 36.4 C L 03/10/24 17:44 Pulse 63 03/10/24 17:44 Resp 20 03/10/24 17:44 BP 136/75 03/10/24 17:44 Pulse Ox 99 03/10/24 17:44 Laboratory Results - last 24 hr 03/10/24 06:25 WBC 7.70 RBC 3.23 L Hgb 10.1 L Hct 31.6 L MCV 98 H MCH 31.3 MCHC 32.0 RDW 12.9 Plt Count 219 MPV 9.3 Immature Gran % 0.4 Neutrophils % 69.1 Lymphocytes % 18.6 Monocytes % 8.4 Eosinophils % 2.7 Basophils % 0.8 Nucleated RBC % 0.0 Absolute Neutrophils 5.32 Absolute Lymphocytes 1.43 Absolute Monocytes 0.65 Absolute Eosinophils 0.21 Absolute Basophils 0.06 Sodium 142 Potassium 4.0 Chloride 106 Carbon Dioxide 31.7 Anion Gap 4.3 BUN 42 H Creatinine 2.5 H Est GFR (CKD-EPI 2020) 19.93 Glucose 107 H Calcium 9.3 Time Spent with Patient Time Spent with Patient: >50 minutes Time was spent: preparing to see the patient(eg.review tests), obtaining and/or reviewing separately otained hiistory, ordering medications,tests, procedures, referring, communicating with other health child care, indepentently interpreting results, counseling the patient and care coordination
[2024-03-10] MEDS: Docusate Sodium 100 MG CAP PO (21:49)
[2024-03-10] MEDS: Heparin 5,000 UNITS/ML VIAL 5000 UNITS SC (21:49)
[2024-03-10] MEDS: Acetaminophen 325 MG TAB PO (23:44)
== END 2024-03-11 06:31 | disposition home health service (06) ==
LOC: ER 18:57 → MS 21:28
PROVIDERS: Nurse Practitioner Acute Care; Admitting Provider Family Medicine; Emergency Provider Student in an Organized Health Care Education/Training Program; PCP Family Medicine; Visit Provider Family Medicine
DX: T82.524A Displacement of infusion catheter, initial encounter (principal); N18.6 End stage renal disease; R91.8 Other nonspecific abnormal finding of lung field; Z99.2 Dependence on renal dialysis; E11.22 Type 2 diabetes mellitus with diabetic chronic kidney disease; J98.11 Atelectasis; I13.2 Hypertensive heart and chronic kidney disease with heart failure and with stage 5 chronic kidney disease, or end stage renal disease; J43.2 Centrilobular emphysema; I48.0 Paroxysmal atrial fibrillation; E87.6 Hypokalemia; Z59.82 Transportation insecurity; E66.9 Obesity, unspecified; G47.30 Sleep apnea, unspecified; I50.9 Heart failure, unspecified; D63.1 Anemia in chronic kidney disease; Z99.3 Dependence on wheelchair; F41.9 Anxiety disorder, unspecified; E83.39 Other disorders of phosphorus metabolism; I45.10 Unspecified right bundle-branch block; E87.5 Hyperkalemia; E87.1 Hypo-osmolality and hyponatremia; J96.11 Chronic respiratory failure with hypoxia; E78.5 Hyperlipidemia, unspecified; I35.0 Nonrheumatic aortic (valve) stenosis; I48.91 Unspecified atrial fibrillation; E11.65 Type 2 diabetes mellitus with hyperglycemia; Z79.4 Long term (current) use of insulin
CPT/HCPCS: 00123; 36415; 80048; 80053; 85027; 87635; 96372; 99285; 71045; 71046; 83735; 85025; 94760; 99223; 99233; 99239; G0378; J1644; J1815; J3490

== ENCOUNTER 2024-07-12 01:19 | Outpatient (CLI) | payer MEDICARE, SELFPAY ==
--- NOTE | 2024-07-12 | DI.MRI_ITS ---
Exam(s) MR LUMBAR SPINE WO EXAM: MR LUMBAR SPINE WO CLINICAL HISTORY: PAIN IN RIGHT HIP JOINT, M25.551. TECHNIQUE: Multiplanar multisequence MRI of the Lumbar spine was performed. COMPARISON: CR XR LUMBAR SPINE COMPLETE from 11/26/[address] LUMBAR SPINE WO from 11/26/2023 CR XR LUMBAR SPINE AP, LAT from 11/27/2023 FINDINGS: Bones: The last intervertebral disc space is designated the L5/S1 level for the numbering purpose of this examination. Since the prior examination, the L4 vertebral body has undergone further loss of height. There is approximately 50 percent loss of height of the vertebral body. There is also retro pulsion posteriorly into the spinal canal causing central spinal canal stenosis at the L3-L4 level. There is a left convex scoliosis of the lumbar spine. Degenerative endplate signal changes are prese nt particularly at L2-L3. There is also grade 1 anterolisthesis of L 2 on L3. Cord: The conus tip ends at the T12 level. It is of normal size and signal intensity. T12-L1: No disc herniations or bulges are present. No central spinal canal or neural foraminal stenos is. L1-2: There are hypertrophic changes of the facets. No focal disc herniation is seen. There is mild narrowing of the central spinal canal. There is moderate left neural foraminal stenosis. No signif icant right neural foraminal stenosis is present. L2-3: There are degenerative changes of the facets. These all contribute to cause marked central spi nal canal stenosis. There is moderate right and mild left neural foraminal stenosis. L3-4: There is retropulsion of the superior aspect of the L4 vertebral body fracture. This, in conju nction with the degenerative changes of the facets and hypertrophy of the ligamentum flavum causes ma rked central spinal canal stenosis. There is myep-et-dynvgsin bilateral neural foraminal stenosis. L4-5: There is a mild diffuse disc bulge. There are degenerative changes of the facets. No signific ant central spinal canal or right neural foraminal stenosis is seen. There is mild left neural aleksey inal narrowing. L5-S1: No disc herniations or bulges are present. No central spinal canal or neural foraminal stenosi s.There are degenerative changes of the facets present. Soft tissues: The visualized SI joints and sacrum are well maintained. The paraspinal soft tissues ar e unremarkable. Visualized abdominal organs: There are bilateral simple renal cysts. No follow-up is recommended. IMPRESSION: 1. Further compression of the L4 vertebral body. There is now 50 percent loss of the height of the v ertebral body. There is retropulsion into the spinal canal. This in conjunction with the degenerati ve changes, creates marked central spinal canal stenosis at the L3-L4 level. There is also resultant hidk-ao-cvhkohlo bilateral neural foraminal stenosis. 2. Multilevel degenerative changes throughout the lumbar spine. 3. The neck is most significant level is at L2-3 level. There is marked central spinal canal stenosi s and bilateral neural foraminal stenosis, right greater than left. DATA REPOSITORY:
== END 2024-07-12 01:39 ==
LOC: DI 01:19
PROVIDERS: PCP Family Medicine; Visit Provider Family Medicine
DX: M48.062 Spinal stenosis, lumbar region with neurogenic claudication (principal)
CPT/HCPCS: 72148

== ENCOUNTER 2024-09-27 13:27 | Emergency (ER) | payer MEDICARE, SELFPAY ==
[2024-09-27] VITALS (36 sets, daily range): BP systolic 99–147; BP diastolic 45–101; PULSE 49–95; RESP 15–23; TEMP 36.7; O2SAT 95–100
--- NOTE | 2024-09-27 14:00 | RT.EKG_ITS ---
APPROVED REPORT Exam: Resting ECG Reason for Exam: Shortness of breath Patient Location: E HR:57 bpm ECG Measurements Heart Rate 57 AXIS NC 106 P 256 QRSd 179 QRS -92 QT 488 T 63 QTc 477 Conclusion Ectopic atrial bradycardia...abnormal P axis, V-rate< 60 RBBB and LAFB...QRSd >120mS, axis(-40,240) No Occlusion FL
--- NOTE | 2024-09-27 14:02 | W.ED.GENAD ---
Discharge Plan Discharge Details Chief Complaint: Vascular Clinical Impression: Vascular port complication, Dependence on renal dialysis, Hypoglycemia, Acute hypotension Primary Care Provider: Yenny Adkins V ED Provider: Kelvin Frey Home Meds and New Rx's Prescriptions: No Action Tiff Billingsta 100-62.5-25 mcg blister with device 1 inh INHALATION DAILY Rx Instructions: filled, [place] [facility] [place] cyanocobalamin (vitamin B-12) 250 mcg tablet 500 mcg PO DAILY Patient Comments: TAKE ONE TABLET BY MOUTH EVERY DAY 08/19/23 Per PCP notes [facility] omega-3 fatty acids-fish oil [Fish Oil] 360-1,200 mg capsule 1 cap PO DAILY (DME) Oxygen Tank See Rx Instructions .ROUTE .MEDSUPPLY Qty: 1 Rx Instructions: As directed,2L with physical activity. melatonin 3 mg capsule 6 mg PO QHS polyethylene glycol 3350 [Miralax] 17 gram/dose powder 17 g PO DAILY albuterol sulfate 2.5 mg /3 mL (0.083 %) solution for nebulization See Rx Instructions inhalation Q4H PRN (Reason: shortness of breath or wheezing) Qty: 90 2RF Rx Instructions: BID & PRN SOB, [place] [facility] [place] inhaled every 4 hours PRN; amiodarone [Pacerone] 200 mg Tablet 200 mg PO DAILY Qty: 0 0RF Inhaler, Assist Devices [Pocket Chamber] 1 ea miscellaneous DIRECTED Qty: 0 0RF insulin glargine [Lantus Solostar U-100 Insulin] 100 unit/mL (3 mL) insulin pen 32 unit subcut DAILY lidocaine 5 % adhesive patch,medicated 1 patch topical DAILY Rx Instructions: leave on most painful area for up to 12 hrs Nicotrol 10 mg cartridge 10 mg inhalation DIRECTED PRN Rx Instructions: Q1-2Hrs escitalopram oxalate [Lexapro] 20 mg Tablet 20 mg PO DAILY albuterol sulfate [ProAir HFA] 90 mcg/actuation Hfa Aerosol Inhaler 2 puff Inhalation Q6H PRN PRN (DME) nebulizers mis See Dose Instructions .ROUTE .MEDSUPPLY Qty: 1 0RF Dose Instruction: As directed Rx Instructions: As directed rosuvastatin 10 mg tablet 10 mg PO DAILY Qty: 30 0RF Palmira-Frantz 0.8 mg tablet 1 tab PO DAILY Patient Comments: TAKE ONE TABLET BY MOUTH EVERY DAY acetaminophen 325 mg capsule 650 mg PO BID ipratropium-albuterol 0.5 mg-3 mg(2.5 mg base)/3 mL solution for nebulization 3 ml inhalation Q4H PRN (Reason: wheezing) Rx Instructions: per [facility] [place], per [facility]rs[facility] rpt trazodone 50 mg tablet 50 mg PO QHS PRN HPI General Date/Time Provider Initiated Documentation: 09/27/24 14:02. HPI Narrative: MDM This is a hypotensive and hypoglycemic 74-year-old diabetic female with removed right chest wall catheter who is pale and diaphoretic concerning for internal hemorrhage for which patient will undergo type and screen assessment of hemoglobin and portable chest x-ray. Will also cover for sepsis with piperacillin/tazobactam and vancomycin following lactate and blood cultures. Patient does not have overt ischemic changes on ECG however she does have widened QRS concerning for the possibility of hyperkalemia. Given the patient is lost her dialysis access she will require tertiary care transfer. No pain out of proportion to suggest necrotizing soft tissue infection. Patient is on home 2 L oxygen without hypoxia. Will ensure that she is not hypercarbic. She has no wheezing to suggest reactive airway disease exacerbation. She is not on a beta-bernardo to suggest brash syndrome. Will maintain patient on monitor and reassess. 3 PM Venous gas without hypercarbia nor acidemia. CBC shows leukocytosis that is new. No anemia. No thrombocytopenia. Given hypoglycemia with a fingerstick blood glucose of 29 I ordered the patient for D5 NS. She has a reassuring normal lactate. 3:45 pm Repeat FSBG 74. 4:30 PM I met with the patient. She was slightly improved appearing. Still concerned about her hypotension and her hypoglycemia so I feel she requires transfer. She is not on steroids to suggest benefit from stress dose. Will add on TSH. I spoke to [place] [facility] [place]. Will have images pushed. Patient does not need dialysis now but I do not feel she is safe for discharge for outpatient dialysis line placement for dialysis tomorrow. Will sign patient out to Dr. Magallanes. 4:54 PM [facility] [place] called back and unfortunately they do not have capacity to accept the patient. I have asked health ED coordinator Whit to call [facility]. I signed patient out to Dr. Magallanes. HPI This is a patient with a history of dialysis presenting with a dislodged chest port. The patient reports that the chest port dislodged, but he is uncertain of the exact time it occurred. He noticed it around 11 AM but is unsure if it fell out during the night. He did not observe any bleeding from the site, confirming there was no blood on his sheets. The port was being used for dialysis as his fistula is not yet ready, which was placed recently. His next dialysis session is scheduled for tomorrow, but he has decided to cancel it due to an upcoming eye appointment. He typically undergoes dialysis on Mondays, Wednesdays, and Fridays. Currently, the patient is experiencing excessive sweating and a mild headache. He reports no fever, nausea, vomiting, or chest pain. The patient is on continuous oxygen therapy, receiving 2 liters of oxygen, and confirms he was on oxygen this morning and is supposed to be on it currently. Exam General: Ill-appearing and pale in no acute distress speaking in complete sentences. Head: Normocephalic, atraumatic Eye: Extraocular eye movements intact. No conjunctival injection. No scleral icterus. Ear, nose, mouth, throat: Grossly normal inspection. Normal voice, handling secretions normally. Neck: Trachea midline. Cardiovascular: Well-perfused distal extremities. Regular rate and rhythm. Right upper extremity fistula in place positive thrill. No signs of bleeding. Chest wall no signs of bleeding. Respiratory: Nonlabored respiration. Clear lungs bilaterally Gastrointestinal: Nondistended abdomen. Soft. Nontender Musculoskeletal: No significant lower extremity pitting edema. Moving all 4 extremities spontaneously. Skin: Slightly ashen skin tone to face. Normal for age and race, grossly normal temperature and turgor. No acute rash. Neurologic: Alert and appropriate, no apparent acute deficits. Psychiatric: Mood and manner are appropriate. Grooming and personal hygiene are appropriate. Related Data Home Medications ?Medication ?Instructions ?Recorded ?Confirmed albuterol sulfate 90 mcg/actuation 2 puff inhalation Q6H PRN PRN 11/25/17 09/27/24 aerosol inhaler (ProAir HFA) escitalopram oxalate 20 mg tablet 20 mg PO DAILY 11/25/17 09/27/24 (Lexapro) nebulizers #1 ea 11/30/17 08/10/24 Oxygen #1 ea 10/25/20 09/27/24 Inhaler, Assist Devices [Pocket 1 ea miscellaneous DIRECTED ##0 01/23/22 09/27/24 Chamber] Held on 09/27/24. Instructions: Pt Stopped/Never Started amiodarone 200 mg tablet (Pacerone) 200 mg PO DAILY #0 tabs 01/23/22 09/27/24 rosuvastatin 10 mg tablet 10 mg PO DAILY #30 tabs 01/27/23 09/27/24 cyanocobalamin (vitamin B-12) 250 500 mcg PO DAILY 08/19/23 09/27/24 mcg tablet Held on 09/27/24. Instructions: Pt Stopped/Never Started omega-3 fatty acids-fish oil 360 1 cap PO DAILY 08/19/23 09/27/24 mg-1,200 mg capsule (Fish Oil) melatonin 3 mg capsule 6 mg PO QHS 08/20/23 09/27/24 polyethylene glycol 3350 17 17 g PO DAILY 08/20/23 09/27/24 gram/dose oral powder (Miralax) Held on 09/27/24. Instructions: Pt Stopped/Never Started albuterol sulfate 2.5 mg/3 mL See Rx Instructions inhalation Q4H 10/31/23 09/27/24 (0.083 %) solution for nebulization PRN shortness of breath or wheezing #90 mL fluticasone fur. 100 mcg-umeclid 1 inh inhalation DAILY 10/31/23 09/27/24 62.5 mcg-vilant 25 mcg inhalat.powder (Trelegy Ellipta) Held on 09/27/24. Instructions: Pt Stopped/Never Started acetaminophen 325 mg capsule 650 mg PO BID 11/06/23 09/27/24 ipratropium 0.5 mg-albuterol 3 mg 3 ml inhalation Q4H PRN wheezing 11/06/23 09/27/24 (2.5 mg base)/3 mL nebulization soln Held on 09/27/24. Instructions: Pt Stopped/Never Started trazodone 50 mg tablet 50 mg PO QHS PRN 11/06/23 09/27/24 vitamin B complex-vitamin C-folic 1 tab PO DAILY 11/06/23 09/27/24 acid 0.8 mg tablet (Palmira-Frantz) Held on 09/27/24. Instructions: Pt Stopped/Never Started insulin glargine 100 unit/mL (3 32 unit subcut DAILY 11/26/23 09/27/24 mL) subcutaneous pen (Lantus Solostar U-100 Insulin) lidocaine 5 % topical patch 1 patch topical DAILY 11/26/23 09/27/24 nicotine 10 mg inhalation 10 mg inhalation DIRECTED PRN 11/26/23 09/27/24 cartridge (Nicotrol) Held on 09/27/24. Instructions: Pt Stopped/Never Started Previous Rx's ?Medication ?Instructions ?Recorded nebulizers #1 ea 11/30/17 Inhaler, Assist Devices [Pocket 1 ea miscellaneous DIRECTED ##0 01/23/22 Chamber] Held on 09/27/24. Instructions: Pt Stopped/Never Started amiodarone 200 mg tablet (Pacerone) 200 mg PO DAILY #0 tabs 01/23/22 rosuvastatin 10 mg tablet 10 mg PO DAILY #30 tabs 01/27/23 albuterol sulfate 2.5 mg/3 mL See Rx Instructions inhalation Q4H 10/31/23 (0.083 %) solution for nebulization PRN shortness of breath or wheezing #90 mL Allergies Allergy/AdvReac Type Severity Reaction Status Date / Time codeine Allergy Mild Other (See Verified 09/27/24 13:37 Comment) fluticasone (From Advair Allergy Mild Other (See Verified 09/27/24 13:37 Diskus) Comment) salmeterol (From Advair Allergy Mild Other (See Verified 09/27/24 13:37 Diskus) Comment) Sulfa (Sulfonamide Allergy Mild Unknown Verified 09/27/24 13:37 Antibiotics) sulfasalazine AdvReac Intermediate Other (See Verified 09/27/24 13:37 Comment) General Stated Complaint: Vascular VIRY: 3 Course Vital Signs Vital signs: Vital Signs Temperature 36.7 C 09/27/24 13:28 Pulse 95 H 09/27/24 13:28 Respiratory Rate 18 09/27/24 13:28 Blood Pressure 99/66 L 09/27/24 13:28 Pulse Oximetry 95 09/27/24 13:28 Temperature 36.7 C 09/27/24 13:28 Temperature Source Oral 09/27/24 13:28 Pulse 95 H 09/27/24 13:28 Respiratory Rate 18 09/27/24 13:28 Blood Pressure 99/66 L 09/27/24 13:28 Blood Pressure Position Sitting 09/27/24 13:28 Pulse Oximetry 95 09/27/24 13:28 Oxygen Delivery Method Room Air 09/27/24 13:28 Oxygen Flow Rate 0 09/27/24 13:28 Pain Level 9 09/27/24 13:28 Comment 9/10 pain in fistula. 09/27/24 13:28 Critical Care Time Critical Care Time Critical Care Time: Yes Total Critical Care Time: 45 Attestation: Hypotension hypoglycemia PFSH All Active Problems (Updated 09/27/24 @ 16:37 by Kelvin Frey MD) Acute hypotension (Acute) Hypoglycemia (Acute) Dependence on renal dialysis (Acute) Vascular port complication (Acute) Lumbosacral spinal stenosis (Acute) CKD (chronic kidney disease) stage V requiring chronic dialysis (Chronic) Complication associated with dialysis catheter (Acute) COVID-19 (Acute) Difficulty sleeping (Acute) Trazadone helped - [place] [facility] [place] Hospitalization within last 30 days (Acute) [facility] [place] [place], w/o meds @ home (TBD).. Home via RCT. Family avble to help if/when called. Anxiety (Chronic) Hemodialysis patient (Chronic) 08/19/23 Per PCP notes pt gets diaslysis at [facility] Hyperphosphatemia associated with renal failure (Acute) Right bundle branch block (Acute) Hypocalcemia (Acute) Uremia of renal origin (Acute) High anion gap metabolic acidosis (Acute) Hyperkalemia (Acute) Hyponatremia (Acute) Leukocytosis (Acute) Diabetes (Chronic) Acute on chronic respiratory failure with hypoxia (Acute) Acute on chronic kidney failure (Acute) CAP (community acquired pneumonia) (Acute) Acute on chronic renal insufficiency (Acute) Sepsis (Acute) Aortic stenosis (Chronic) Obesity (Chronic) HLD (hyperlipidemia) (Acute) Hypomagnesemia (Acute) Acute kidney injury superimposed on chronic kidney disease (Acute) Acute on chronic respiratory failure with hypoxia (Acute) Tick bite (Acute) Parainfluenza (Acute) Type II diabetes mellitus (Acute) COPD exacerbation (Acute) Acute hyperkalemia (Acute) Pneumonia (Acute) Acute exacerbation of chronic obstructive pulmonary disease (Acute) Hypoxia (Acute) Abnormal ECG (Acute) Weakness (Acute) Diarrhea (Acute) Congestive heart failure (Chronic) Shortness of breath (Acute) Medication monitoring encounter (Acute) Tubular adenoma of colon (Acute) Diverticulosis (Chronic) Colon polyps (Chronic) Anemia (Chronic) Pleural effusion (Acute) Depression (Chronic) Hypertension (Chronic) Dental abscess (Acute) COPD (chronic obstructive pulmonary disease) (Chronic) Personal history of nicotine dependence (Acute) Right ankle injury (Acute) Anemia (Chronic) Medical History (Updated 09/27/24 @ 16:37 by Kelvin Frey MD) FH: cholecystectomy Pulmonary infiltrates on CXR Tobacco abuse Pneumonia Afib 08/19/23 Per PCP notes on aiodarone [facility] Paroxysmal atrial flutter On supplemental oxygen therapy on O2 of night. Is able to lay flat CKD (chronic kidney disease) stage 3, GFR 30-59 ml/min Pt. denies Diabetes mellitus 10/21/21 [facility] visit not well controlled, A1C 8.2 Diabetes mellitus Surgical History History of colonoscopy (~12/2021) Hx of hernia repair Social History Smoking/Tobacco Use Status: Former Tobacco Use Quit Date: 03/23/18 Tobacco: How many years used: 67 Smoking risk assessment performed?: Yes Alcohol Intake: former Drug use: Never Substance use type: does not use Housing: house Do you feel safe at home: Yes Do you feel safe in your relationship?: Yes
--- NOTE | 2024-09-27 14:45 | DI.RAD_ITS ---
Exam(s) XR PORTABLE CHEST AP EXAM: XR PORTABLE CHEST AP CLINICAL HISTORY: Shortness of breath catheter dislodged TECHNIQUE: 2D digital imaging was performed. COMPARISON: CT CT CHEST WO from 12/15/2023 CR XR PORTABLE CHEST AP from 03/08/2024 CR,XR XR CHEST 2V PA LATERAL from 03/08/2024 FINDINGS: LUNGS: Clear. Stable of chronic blunting and mild scarring at the left lung base. HEART: Enlarged. AORTA: Normal diameter. BONES: Unremarkable for age. Soft tissues: Unremarkable. IMPRESSION: No acute findings. DATA REPOSITORY: RADIATION DOSE DELIVERED:
[2024-09-27] MEDS: Glucose Oral Gel 15 GM/37.5 GM TUBE (14:52)
[2024-09-27 14:57] LABS: BE (Venous) 5 mmol/L (-2-3); HCO3 (Venous) 30 mmol/L (23-28); O2 Sat (Venous) 94 %; TCO2 (Venous) 27 mmol/L (24-29); pCO2 (Venous) 51 mmHg (41-51); pO2 (Venous) 64 mmHg
[2024-09-27 15:00] LABS: Abs Immature Grans 0.07 10^3/uL (0.0-0.06); HCT 35.8 % (36.0-46.0); HGB 11.3 g/dL (11.2-15.7); Immature Grans % 0.6 %; MCH 31.6 pg (27.0-33.0); MCHC 31.6 % (32.0-36.0); MCV 100 fL (80-95); MPV 9.1 fL (8.0-11.0); Platelet Count 232 10^3/uL (130-400); RBC 3.58 10^6/uL (3.93-5.22); RDW 14.6 % (11.7-14.6); RDW-SD 53.4 fL; WBC 12.08 10^3/uL (4.4-10.8)
[2024-09-27 15:16] LABS: BE (Venous) 5 mmol/L (-2-3); HCO3 (Venous) 30 mmol/L (23-28); O2 Sat (Venous) 75 %; TCO2 (Venous) 28 mmol/L (24-29); pCO2 (Venous) 56 mmHg (41-51); pO2 (Venous) 40 mmHg
[2024-09-27 15:21] LABS: RBC Morphology Normal
[2024-09-27 15:22] LABS: Anion Gap 9.6 mmol/L (3-11); BUN 32 mg/dL (7-18); CO2 29.4 mmol/L (21.0-32.0); Calcium 9.4 mg/dL (8.5-10.1); Chloride 104 mmol/L (98-107); Estimated GFR 19.02 (mL/min/1.73m2); Magnesium 1.8 mg/dL (1.8-2.4); Potassium 3.3 mmol/L (3.5-5.1); Sodium 143 mmol/L (136-145); Troponin I 13 ng/L (<or=51)
[2024-09-27 15:27] LABS: D-Dimer 3755 ng/mlFEU (<500); Glucose 23 mg/dL (74-106)
--- NOTE | 2024-09-27 15:30 | DI.CT_ITS ---
Exam(s) CT CHEST PE CTA EXAM: CT CHEST PE CTA CLINICAL HISTORY: sob +d-dimer. TECHNIQUE: Imaging Protocol: Axial CT angiography was performed with multi- slice acquisition and multi-planar reconstructions as well as axial, coronal and sagittal MIP reconstructions. Computer aided detection (CAD) was utilized. CONTRAST MATERIAL: Intravenous: Omnipaque 350 Contrast volume:100 ml COMPARISON: CT CT CHEST WO from 12/15/2023 CR XR PORTABLE CHEST AP from 09/27/2024 FINDINGS: Pulmonary Arteries: Well opacified with IV contrast. No evidence of filling defect to suggest pulmonary emboli. Mediastinum and Breana: No dominant adenopathy or fluid collection. Pulmonary parenchyma: No consolidation or dominant measurable mass. Linear atelectasis at the lingula, along the fissure. Mild emphysematous changes. Pleura: No effusion or pneumothorax. Heart: The heart is moderately dilated. Moderate coronary artery calcifications are seen. Aorta: Thoracic aorta non-dilated. No dissection. Upper abdomen: No acute findings. Bones: Degenerative changes and mild scoliosis. Tubes, Catheters, and Lines: None Soft tissues: Unremarkable. IMPRESSION: No evidence of pulmonary embolism or other acute abnormality. RADIATION DOSE DELIVERED: Total DLP DATA REPOSITORY: All CT scans at this facility are submitted to the National Radiology Data Registry (NRDR) Dose Index Registry (DIR) with the [employer] (A[employer]). RADIATION OPTIMIZATION: All CT scans at this facility use at least one of these dose optimization techniques: automated exposure control; mA and/or kV adjustment per patient size (includes targeted exams where dose is matched to clinical indication); or iterative reconstruction.
[2024-09-27 15:34] LABS: COVID-19 PCR Negative (Negative); RSV PCR Negative (Negative)
[2024-09-27] MEDS: PIPERACILLIN/TAZO 2.25 GM in Normal Saline 50 ML IVPB (15:37)
[2024-09-27] MEDS: DEXTROSE 5%-0.9% SALINE 1,000 ML 250 ML IV (15:37)
[2024-09-27] MEDS: VANCOMYCIN/WATER (PEG) 1.75 GM/350 ML BAG IVPB (15:38)
[2024-09-27 16:13] LABS: Troponin I 10 ng/L (<or=51)
[2024-09-27] MEDS: Omnipaque 350 MG/ML 100 ML BTL IJ (16:24)
[2024-09-27] MEDS: Normal Saline - Diluent 50 ML VIAL IJ (16:26)
[2024-09-27 17:15] LABS: Lab Add On Test DONE
[2024-09-27 17:21] LABS: TSH (W/Ref FT4) 1.38 uIU/mL (0.36-3.74)
== END 2024-09-27 19:31 | disposition home or self-care (01) ==
LOC: ER 13:48
PROVIDERS: Emergency Provider Emergency Medicine; PCP Family Medicine
DX: T82.42XA Displacement of vascular dialysis catheter, initial encounter (principal); Z99.2 Dependence on renal dialysis; E16.2 Hypoglycemia, unspecified; I95.0 Idiopathic hypotension
CPT/HCPCS: 99291; 36416; 82962; 96368; 71275; 80048; 82805; 86850; 86900; 86901; 87040; 87637; 93005; 96365; 71045; 83605; 83735; 84443; 84484; 85025; 85379; 93010; J2543; J3373; J3490; J7042

== ENCOUNTER 2024-10-26 15:50 | Emergency (ER) | payer MEDICARE, SELFPAY ==
[2024-10-26] VITALS (25 sets, daily range): BP systolic 99–154; BP diastolic 25–59; PULSE 64–79; RESP 11–27; TEMP 36.6; O2SAT 95–100
--- NOTE | 2024-10-26 16:12 | ED.GENADUL_ITS ---
Discharge Plan Disposition Patient Disposition: Home Condition: Stable Discharge Details Clinical Impression: Ottoniel Primary Care Provider: Yenny Adkins V ED Provider: Anna Feliciano Home Meds and New Rx's Prescriptions: New valacyclovir 1 gram tablet 1,000 mg PO DAILY 7 Days Qty: 7 0RF Rx Instructions: Take 1 tablet by mouth daily for the next 7 days lidocaine HCl [Glydo] 2 % Jelly In Applicator 6 ml topical BID PRN (Reason: Rash) 7 Days Qty: 125 0RF Rx Instructions: Apply topically twice a day as needed for the next 7 days to painful rash Continued amiodarone [Pacerone] 200 mg Tablet 200 mg PO DAILY Qty: 0 0RF insulin glargine [Lantus Solostar U-100 Insulin] 100 unit/mL (3 mL) insulin pen 32 unit subcut DAILY escitalopram oxalate [Lexapro] 20 mg Tablet 20 mg PO DAILY rosuvastatin 10 mg tablet 10 mg PO DAILY Qty: 30 0RF trazodone 50 mg tablet 50 mg PO QHS PRN No Action Trelegy Ellipta 100-62.5-25 mcg blister with device 1 inh INHALATION DAILY Rx Instructions: filled, [place] [facility] cyanocobalamin (vitamin B-12) 250 mcg tablet 500 mcg PO DAILY Patient Comments: TAKE ONE TABLET BY MOUTH EVERY DAY 08/19/23 Per PCP notes [facility] omega-3 fatty acids-fish oil [Fish Oil] 360-1,200 mg capsule 1 cap PO DAILY (DME) Oxygen Tank See Rx Instructions .ROUTE .MEDSUPPLY Qty: 1 Rx Instructions: As directed,2L with physical activity. polyethylene glycol 3350 [Miralax] 17 gram/dose powder 17 g PO DAILY albuterol sulfate 2.5 mg /3 mL (0.083 %) solution for nebulization See Rx Instructions inhalation Q4H PRN (Reason: shortness of breath or wheezing) Qty: 90 2RF Rx Instructions: BID & PRN SOB, per [facility] [place] (10/2023) inhaled every 4 hours PRN; Inhaler, Assist Devices [Pocket Chamber] 1 ea miscellaneous DIRECTED Qty: 0 0RF lidocaine 5 % adhesive patch,medicated 1 patch topical DAILY Rx Instructions: leave on most painful area for up to 12 hrs Nicotrol 10 mg cartridge 10 mg inhalation DIRECTED PRN Rx Instructions: Q1-2Hrs albuterol sulfate [ProAir HFA] 90 mcg/actuation Hfa Aerosol Inhaler 2 puff Inhalation Q6H PRN PRN (DME) [place] [facility] [place] Dose Instructions .ROUTE .MEDSUPPLY Qty: 1 0RF Dose Instruction: As directed Rx Instructions: As directed Palmira-Frantz 0.8 mg tablet 1 tab PO DAILY Patient Comments: TAKE ONE TABLET BY MOUTH EVERY DAY acetaminophen 325 mg capsule 650 mg PO BID ipratropium-albuterol 0.5 mg-3 mg(2.5 mg base)/3 mL solution for nebulization 3 ml inhalation Q4H PRN (Reason: wheezing) Rx Instructions: per [facility] [place], per [facility] rpt Discharge Instructions Instructions: Shingles Additional Instructions: At this time it does appear that you have shingles. Some lidocaine gel was sent to the pharmacy on file along with the antiviral valacyclovir. Please take this once daily for the next 7 days as directed. Use the lidocaine gel up to twice daily for the next 7 days. Please make sure you eat a meal with protein while taking your insulin so your sugars do not become low you did have a low blood sugar today of 34. Follow up with primary care provider in 3-5 days. Return to ED sooner if any worsening or concerns. Please take Tylenol with food every 4-6 hours as needed for pain and swelling. Or you may take your pain medications as well. Thank you for allowing us to care for you today. Referrals: Yenny Adkins MD [Primary Care Provider, Medicine] - 5 days Referral Note: Call for an appt Clinical Impression: Shingles HPI General Mode of arrival: EMS . Date/Time Provider Initiated Documentation: 10/26/24 15:59 . Limitations to Documentation: no limitations . Information obtained by: patient, EMS, RN notes reviewed and old records reviewed . HPI Narrative: 34-year-old female presents to the ER with a chief complaint of rash which began 2 days ago to her right flank which is blistery, she also reports painful she is a diabetic, she also is a dialysis patient has a history of A-fib, atrial flutter chronic kidney disease stage III, pneumonia surgical history of cholecystectomy. Upon initial presentation her BGL is 34, she is diaphoretic and hypotensive blood pressure 99/42. Related Data Home Medications ?Medication ?Instructions ?Recorded ?Confirmed albuterol sulfate 90 mcg/actuation 2 puff inhalation Q 6H PRN PRN 11/25/17 10/26/24 aerosol inhaler (ProAir HFA) escitalopram oxalate 20 mg tablet 20 mg PO DAILY 11/2510/26/24 (Lexapro) nebulizers #1 ea 11/30/17 10/20/24 Oxygen #1 ea 10/25/20 10/20/24 Inhaler, Assist Devices [Pocket 1 ea miscellaneous DIRECTED ##0 01/23/22 10/20/24 Chamber] Held on 09/27/24. Instructions: Pt Stopped/Never Started amiodarone 200 mg tablet (Pacerone) 200 mg PO DAILY #0 tabs 01/23/22 10/26/24 rosuvastatin 10 mg tablet 10 mg PO DAILY #30 tabs 11/0 10/1210/26/24 cyanocobalamin (vitamin B-12) 250 500 mcg PO DAILY 10/26/24 mcg tablet omega-3 fatty acids-fish oil 360 1 cap PO DAILY 10/26/24 mg-1,200 mg capsule (Fish Oil) polyethylene glycol 3350 17 17 g PO DAILY 08/20/2309/14 gram/dose oral powder (Miralax) Held on 09/27/24. Instructions: Pt Stopped/Never Started albuterol sulfate 2.5 mg/3 mL See Rx Instructions inha lation Q4H 10/31/23 10/26/24 (0.083 %) solution for nebulization PRN shortness of b reath or wheezing #90 mL fluticasone fur. 100 mcg-umeclid 1 inh inhalation VERONICA Y 10/31/23 10/26/24 62.5 mcg-vilant 25 mcg inhalat.powder (Trelegy Ellipta) acetaminophen 325 mg capsule 650 mg PO BID 11/06/23 ipratropium 0.5 mg-albuterol 3 mg 3 ml inhalation Q4H PRN wheezing 11/06/23 10/26/24 (2.5 mg base)/3 mL nebulization soln Held on 09/27/24. Instructions: Pt Stopped/Never Started trazodone 50 mg tablet 50 mg PO QHS PRN 11/06/23 vitamin B complex-vitamin C-folic 1 tab PO DAILY 11/0510/26/24 acid 0.8 mg tablet (Palmira-Frantz) insulin glargine 100 unit/mL (3 32 unit subcut DAILY 0 11/26/23 10/26/24 mL) subcutaneous pen (Lantus Solostar U-100 Insulin) lidocaine 5 % topical patch 1 patch topical DAILY 08/1310/26/24 nicotine 10 mg inhalation 10 mg inhalation DIRECTED PRN 11/26/23 10/26/24 cartridge (Nicotrol) Held on 09/27/24. Instructions: Pt Stopped/Never Started lidocaine HCl 2 % mucosal jelly in 6 ml topical BID OR N Rash 7 days 10/26/24 applicator (Glydo) #125 mL valacyclovir 1 gram tablet 1,000 mg PO DAILY Shingles 7 days 10/26/24 #7 tabs Previous Rx's ?Medication ?Instructions ?Recorded nebulizers #1 ea 11/30/17 Inhaler, Assist Devices [Pocket 1 ea miscellaneous DIRECTED ##0 01/23/22 Chamber] Held on 09/27/24. Instructions: Pt Stopped/Never Started amiodarone 200 mg tablet (Pacerone) 200 mg PO DAILY #0 tabs 01/23/22 rosuvastatin 10 mg tablet 10 mg PO DAILY #30 tabs 10/12 albuterol sulfate 2.5 mg/3 mL See Rx Instructions inha lation Q4H 10/31/23 (0.083 %) solution for nebulization PRN shortness of b reath or wheezing #90 mL lidocaine HCl 2 % mucosal jelly in 6 ml topical BID OR N Rash 7 days 10/26/24 applicator (Glydo) #125 mL valacyclovir 1 gram tablet 1,000 mg PO DAILY Shingles 7 days 10/26/24 #7 tabs Allergies Allergy/AdvReac Type Severity Reaction Status Date / Time codeine Allergy Mild Other (See Verified 10/26/24 15:50 Comment) fluticasone (From Advair Allergy Mild Other (See Verified 10/26/24 15:50 Diskus) Comment) salmeterol (From Advair Allergy Mild Other (See Verified 10/26/24 15:50 Diskus) Comment) Sulfa (Sulfonamide Allergy Mild Unknown Verified 10/26/24 15:50 Antibiotics) sulfasalazine AdvReac Intermediate Other (See Verified 10/26/24 15:50 Comment) General Stated Complaint: RashLesion VIRY: 3 Exam Narrative Exam Narrative: Constitutional: Alert and oriented x3. Appears stated age. Appears chronically ill. Overweight body habitus. Head: Normocephalic, no trauma. Eyes: Pupils PERRL, Red reflex noted, EOM's intact. Eyelids symmetrical without lesions, discharge, or swelling. ENT: Bilateral TM's WNL, External ear normal to inspection, no mastoid TTP, swelling, or erythema, Nasal turbinates WNL, no nasal discharge. Normal dentitio n, Posterior pharynx WNL, no exudate. Chest: RRR, Normal S1, S2, distal pulses intact. Does have a dialysis shunt noted to her right upper extremity, also has a dialysis port cath to right anterior chest. Resp: Lungs clear to auscultation bilaterally, no wheezes, rales, or rhonchi. Abdomen: Soft, non-distended, Normoactive bowel sounds all 4 quads. Musculoskeletal: Unable to assess gait moves all 4 extremities without difficulty. Skin: Very large pustule rash with blisters with a raised red indurated bed, around her right flank does not across the midline of her abdomen, it is painful to the touch, capillary refill less than 2 sec. Neurologic: Cranial nerves II-XII intact. Alert and oriented x 3. Hematologic/Lymphatic: No ecchymosis, no lymphadenopathy. Course Vital Signs Vital signs: Vital Signs Temperature 36.6 C 10/26/24 15:44 Pulse 77 10/26/24 15:44 Respiratory Rate 18 10/26/24 15:44 Blood Pressure 110/59 L 10/26/24 15:44 Pulse Oximetry 96 10/26/24 15:44 Temperature 36.6 C 10/26/24 15:44 Temperature Source Tympanic 10/26/24 15:44 Pulse 77 10/26/24 15:44 Respiratory Rate 18 10/26/24 15:44 Blood Pressure 110/59 L 10/26/24 15:44 Pulse Oximetry 96 10/26/24 15:44 Oxygen Delivery Method Room Air 08/06/25 15:44 Oxygen Flow Rate 0 10/26/24 15:44 Pain Level 10 10/26/24 15:44 Lab/Test Results Lab/Test Results: 10/26/24 16:07 Blood Blood Culture - Pending 10/26/24 16:07 Blood Blood Culture - Pending Medical Decision Making 34-year-old female presents to the ER with a chief complaint of rash which began 2 days ago to her right flank which is blistery, she also reports painful she is a diabetic, she also is a dialysis patient has a history of A-fib, atrial flutter chronic kidney disease stage III, pneumonia surgical history of cholecystectomy. Upon initial presentation her BGL is 34, she is diaphoretic and hypotensive blood pressure 99/42. Patient was given p.o. orange juice by ED staff, mariella'matt for PO peanut butter, an amp of dextrose 25 g IV ordered, CBC CMP, blood cultures x 2, lactate PT/INR or dered topical lidocaine Differential diagnosis includes but not limited to shingles, drug eruption, POison gloria, poison oak Patient is eating a dinner meal here, repeat BGL after an amp of D50 is 118, and no evidence of septicemia, I do suspect varicella-zoster as the cause for this as this is painful, it does follow the pattern of the dermatome and patient is immunocompromised she is a diabetic and is a dialysis patient. On patient reevaluation she reports that she only had an Mauritian muffin this morning and that is all she has eaten today she did take her insulin around 1:30 PM this afternoon which includes Lantus which is a long-acting insulin I did discuss her need to eat and have protein. She verbalized understanding. Patient given a prescription for valacyclovir, was given a gram to go, BGL prior to discharge was 140. No evidence of septicemia or infectious process noted on the labs. Will have patient follow-up closely with PCP. Patient to be discharged home in the care of [facility]. Her family was notified. Patient discharged in hemodynamically stable condition, remained alert and oriented. Was discharged home with family via wheelchair. This text was generated using exurbe cosmeticsation system, please disregard any oddities of phrase or misspellings. Medical Records Medical records reviewed: Yes I reviewed the patient's medical records. Lab Data Lab results reviewed: Yes I reviewed the patient's lab results. Labs: 10/26/24 16:42 Blood Blood Culture - Pending 10/26/24 16:07 Blood Blood Culture - Pending Laboratory Tests Range/Units 10/26/24 16:42 WBC (4.4-10.8) 10^3/uL 8.41 RBC (3.93-5.22) 10^6/uL 3.59 L Hgb (11.2-15.7) g/dL 11.5 Hct (36.0-46.0) % 36.8 MCV (80-95) fL 103 H MCH (27.0-33.0) pg 32.0 MCHC (32.0-36.0) % 31.3 L RDW (11.7-14.6) % 14.3 Plt Count (130-400) 10^3/uL 146 MPV (8.0-11.0) fL 8.8 Immature Gran % % 0.4 Neutrophils % % 71.2 Lymphocytes % % 12.0 Monocytes % % 14.5 Eosinophils % % 1.5 Basophils % % 0.4 Nucleated RBC % (0.0-0.3) % 0.0 Absolute Neutrophils (1.2-6.7) 10^3/uL 5.99 Absolute Lymphocytes (1.2-3.4) 10^3/uL 1.01 L Absolute Monocytes (0.1-0.8) 10^3/uL 1.22 H Absolute Eosinophils (0.0-0.7) 10^3/uL 0.13 Absolute Basophils (0.0-0.2) 10^3/uL 0.03 PT (9.1-11.1) sec 9.5 INR (0.9-1.1) 0.9 VBG pH (7.31-7.41) 7.37 VBG pCO2 (41-51) mmHg 60 H VBG pO2 mmHg 26 VBG HCO3 (23-28) mmol/L 35 H VBG Total CO2 (24-29) mmol/L 32 H VBG O2 Saturation % 47 VBG Base Excess (-2-3) mmol/L 9 H VBG Lactate (<or=2.0) mmol/L 1.9 Sodium (136-145) mmol/L 140 Potassium (3.5-5.1) mmol/L 3.5 Chloride (98-107) mmol/L 100 Carbon Dioxide (21.0-32.0) mmol/L 35.7 H Anion Gap (3-11) mmol/L 4.3 BUN (7-18) mg/dL 14 Creatinine (0.55-1.02) mg/dL 1.5 H Est GFR (CKD-EPI 2020) (mL/min/1.73m2) 36.80 Glucose (74-106) mg/dL 57 L Calcium (8.5-10.1) mg/dL 8.6 Magnesium (1.8-2.4) mg/dL 1.9 Total Bilirubin (0.2-1.0) mg/dL 0.4 AST (15-37) U/L 27 ALT (14-59) U/L 21 Alkaline Phosphatase (46-116) U/L 84 Total Protein (6.4-8.2) g/dL 6.6 Albumin (3.4-5.0) g/dL 2.8 L PFSH All Active Problems (Updated 10/26/24 @ 18:34 by Anna Feliciano NP) Shingles (Acute) Acute hypotension (Acute) Hypoglycemia (Acute) Dependence on renal dialysis (Acute) Vascular port complication (Acute) Lumbosacral spinal stenosis (Acute) CKD (chronic kidney disease) stage V requiring chronic dialysis (Chronic) Complication associated with dialysis catheter (Acute) COVID-19 (Acute) Difficulty sleeping (Acute) Trazadone helped - [place] [facility] [place]? Hospitalization within last 30 days (Acute) [facility] [place], [place]/23, w/o meds @ home (TBD).. Home via RCT. Family avble to help if/when called. Anxiety (Chronic) Hemodialysis patient (Chronic) 08/19/23 Per PCP notes pt gets diaslysis at [facility] Hyperphosphatemia associated with renal failure (Acute) Right bundle branch block (Acute) Hypocalcemia (Acute) Uremia of renal origin (Acute) High anion gap metabolic acidosis (Acute) Hyperkalemia (Acute) Hyponatremia (Acute) Leukocytosis (Acute) Diabetes (Chronic) Acute on chronic respiratory failure with hypoxia (Acute) Acute on chronic kidney failure (Acute) CAP (community acquired pneumonia) (Acute) Acute on chronic renal insufficiency (Acute) Sepsis (Acute) Aortic stenosis (Chronic) Obesity (Chronic) HLD (hyperlipidemia) (Acute) Hypomagnesemia (Acute) Acute kidney injury superimposed on chronic kidney disease (Acute) Acute on chronic respiratory failure with hypoxia (Acute) Tick bite (Acute) Parainfluenza (Acute) Type II diabetes mellitus (Acute) COPD exacerbation (Acute) Acute hyperkalemia (Acute) Pneumonia (Acute) Acute exacerbation of chronic obstructive pulmonary disease (Acute) Hypoxia (Acute) Abnormal ECG (Acute) Weakness (Acute) Diarrhea (Acute) Congestive heart failure (Chronic) Shortness of breath (Acute) Medication monitoring encounter (Acute) Tubular adenoma of colon (Acute) Diverticulosis (Chronic) Colon polyps (Chronic) Anemia (Chronic) Pleural effusion (Acute) Depression (Chronic) Hypertension (Chronic) Dental abscess (Acute) COPD (chronic obstructive pulmonary disease) (Chronic) Personal history of nicotine dependence (Acute) Right ankle injury (Acute) Anemia (Chronic) Medical History (Updated 10/26/24 @ 18:34 by Anna Feliciano NP) FH: cholecystectomy Pulmonary infiltrates on CXR Tobacco abuse Pneumonia Afib 08/19/23 Per PCP notes on aiodarone [facility] Paroxysmal atrial flutter On supplemental oxygen therapy on O2 of night. Is able to lay flat CKD (chronic kidney disease) stage 3, GFR 30-59 ml/min Pt. denies Diabetes mellitus 10/21/21 [facility] visit not well controlled, A1C 8.2 Diabetes mellitus Surgical History History of colonoscopy (~12/2021) Hx of hernia repair Social History Smoking/Tobacco Use Status: Former Tobacco Use Quit Date: 03/23/18 Tobacco: How many years used: 65 Smoking risk assessment performed?: Yes Alcohol Intake: former Drug use: Never Substance use type: does not use Housing: house Do you feel safe at home: Yes Do you feel safe in your relationship?: Yes
[2024-10-26] MEDS: Dextrose 50%-Water 25 GM/50 ML SYR IVP (16:48)
[2024-10-26 16:49] LABS: BE (Venous) 9 mmol/L (-2-3); HCO3 (Venous) 35 mmol/L (23-28); O2 Sat (Venous) 47 %; TCO2 (Venous) 32 mmol/L (24-29); pCO2 (Venous) 60 mmHg (41-51); pO2 (Venous) 26 mmHg
[2024-10-26 16:50] LABS: Abs Immature Grans 0.03 10^3/uL (0.0-0.06); HCT 36.8 % (36.0-46.0); HGB 11.5 g/dL (11.2-15.7); Immature Grans % 0.4 %; MCH 32.0 pg (27.0-33.0); MCHC 31.3 % (32.0-36.0); MCV 103 fL (80-95); MPV 8.8 fL (8.0-11.0); Platelet Count 146 10^3/uL (130-400); RBC 3.59 10^6/uL (3.93-5.22); RDW 14.3 % (11.7-14.6); RDW-SD 54.5 fL; WBC 8.41 10^3/uL (4.4-10.8)
[2024-10-26] MEDS: valACYclovir 500 MG TAB (16:55)
[2024-10-26 17:14] LABS: ALT 21 U/L (14-59); AST 27 U/L (15-37); Albumin 2.8 g/dL (3.4-5.0); Alkaline Phosphatase 84 U/L (46-116); Anion Gap 4.3 mmol/L (3-11); BUN 14 mg/dL (7-18); Bilirubin, Total 0.4 mg/dL (0.2-1.0); CO2 35.7 mmol/L (21.0-32.0); Calcium 8.6 mg/dL (8.5-10.1); Chloride 100 mmol/L (98-107); Estimated GFR 36.80 (mL/min/1.73m2); Glucose 57 mg/dL (74-106); INR 0.9 (0.9-1.1); Magnesium 1.9 mg/dL (1.8-2.4); Potassium 3.5 mmol/L (3.5-5.1); Prothrombin Time 9.5 sec (9.1-11.1); Sodium 140 mmol/L (136-145); Total Protein 6.6 g/dL (6.4-8.2)
[2024-10-26] MEDS: Lidocaine 2% Jelly 6 ML SYR TP ×2 (18:00→18:55)
[2024-10-26] MEDS: HYDROmorphone 2 MG/ML SYR 0.5 MG IVP (18:01)
[2024-10-26] MEDS: valACYclovir 500 MG TAB 1000 MG PO (18:55)
--- NOTE | 2024-11-08 13:48 | NUR.NOTE ---
Accessed Pt chart to identify the Pts PCP for refill request. Faxed document to [employer]- Yenny Adkins
== END 2024-10-26 19:09 | disposition home or self-care (01) ==
PROVIDERS: Emergency Provider Registered Nurse Emergency; PCP Family Medicine
DX: B02.9 Zoster without complications (principal); N18.6 End stage renal disease; Z99.2 Dependence on renal dialysis
CPT/HCPCS: 99284 ×2; 96374; 36416; 82962; 80053; 82805; 87040; 83605; 83735; 85025; 85610; J1171

== ENCOUNTER 2024-12-15 07:58 | Outpatient (CLI) | payer MEDICARE, SELFPAY ==
--- NOTE | 2024-12-15 06:00 | DI.RAD_ITS ---
Exam(s) XR PAIN CLINIC LUMBAR SP 2V EXAM: XR PAIN CLINIC LUMBAR SP 2V CLINICAL HISTORY: Dx: Lumbar Radiculopathy. TECHNIQUE: Fluoroscopy was provided for the referring physician for guidance with performing pain clinic injection procedure. COMPARISON: No exams were available for comparison FINDINGS: Please see procedure note for details. Fluoro time: 23.5 seconds RADIATION DOSE DELIVERED: Ka,r=12.1 mGy
[2024-12-15 08:03] VITALS: BP 99/52; PULSE 73; RESP 20; TEMP 37; O2SAT 81
[2024-12-15 08:43] VITALS: PULSE 72; O2SAT 89
[2024-12-15 08:46] VITALS: BP 151/73; PULSE 67; PULSE 68; RESP 15; O2SAT 100
[2024-12-15 08:50] VITALS: PULSE 66; RESP 19; O2SAT 100
--- NOTE | 2024-12-15 08:56 | PDOC.PAIN ---
Date of service: 12/15/24 Time of Service: 08:57 Pain Managment Procedure Note Procedure Note Procedure Note: PROCEDURE NOTE LUMBAR EPIDURAL STEROID INJECTION Date of Service: December 15, 2024 Patient:Shira Singh? Provider: Guy Carey DO, MPH Shira Kelly has been referred to the [facility] for a lumbar epidural steroid injection. Pre-operative diagnosis: Lumbosacral Radiculopathy ICD-10 M54.16 Post-operative diagnosis: Same Pre-Procedure Pain: VAS= 7-8 /10 Comments: I previously evaluated her in the office today. Her blood pressure was much better today. Her O2 sat was very low on room air and we put her on 2 L of Oxygen with good numbers. Shira was interviewed and the medical record was reviewed.? There were no medical, pharmacologic, radiographic or other structural contraindications to attempting fluoroscopically guided Lumbar epidural steroid injection.? Risks, potential side effects, indications, and potential benefits of the procedure were reviewed with Shira.? Questions and concerns were addressed.? After it was clear that Shira was fully informed about the procedure, the printed consent form was signed by the patient and myself.? Shira was placed in the prone position on the fluoroscopy table and automated blood pressure cuff and pulse oximeter applied. The skin entry point for entering/approaching the epidural space for the lumbar epidural steroid injection was marked. Following thorough chlorhexadine preparation of the skin and draping and 1% lidocaine infiltration of the skin entry point and subcutaneous tissues, an 18 gauge Touhy needle was placed and advanced under fluoroscopic guidance and with loss of resistance technique into the L5-S1 epidural space. Needle tip placement and depth were aided and confirmed by fluoroscopy. There was no paresthesia or return of blood or CSF through the needle. 1 mls of Omnipaque 240 was injected with clear epidural spread confirmed with fluoroscopy. 80 mg of Depo-Medrol was? injected. This was followed by 1 ml of preservative-free normal saline to flush the steroid out of the needle. There was no unusual discomfort expressed by Shira. The needle was withdrawn without difficulty. (49 mls of Omnipaque was wasted) Shira was observed and was without hemodynamic, neurologic, or allergic reactions.? Fluoroscopic images were digitally archived. Shira's vital signs were stable throughout the procedure and were as recorded in nursing records. Follow up plans and appointments were discussed with Shira. Post procedure instruction was given as documented in nursing records and having met discharge criteria Shira was discharged from the [facility]. COMMENTS: No apparent complications. Post-procedure pain: VAS= 5-6/10. Shira to contact [facility] as needed. If at least 50% improvement in pain and/or function for at least 3 months is achieved, this procedure can be repeated. I personally performed this entire procedure. GUY CAREY DO, MPH ABPMR-subspecialty board certification in Pain Medicine [facility] Coding Conscious Sedation used for procedure: No CPT Codes: Inj Spine L/S w/Imaging - 29147 ([id number] ~G) Additional Codes: Date of Service (45385) Date of service: 12/15/24 Diagnoses: Lumbar radiculopathy
[2024-12-15] MEDS: Omnipaque 240 MG/ML 50 ML BTL IJ (09:00)
[2024-12-15] MEDS: methylPREDNISolone ACETATE 80 MG/ML VIAL IJ (09:01)
== END 2024-12-15 07:59 | disposition home or self-care (01) ==
LOC: PC 07:59
PROVIDERS: PCP Family Medicine; Visit Provider Preventive Medicine Occupational Medicine
DX: M54.50 Low back pain, unspecified (principal); M54.16 Radiculopathy, lumbar region
CPT/HCPCS: 62323; 72100; J1010; Q9967

== ENCOUNTER → 2025-02-07 02:13 | Outpatient (CLI) | payer MEDICARE, SELFPAY ==
--- NOTE | 2025-02-07 13:35 | DI.US_ITS ---
APPROVED REPORT EXAM: Comprehensive 2D, Doppler, and color-flow Echocardiogram Patient Location: Out-Patient [facility] [employer]ain: Elvira Perez RDCS (AE) Indications: Aortic stenosis non rheumatic Other Information Study Quality: Adequate. Technically limited study due to body habitus. Conclusion Normal left ventricular wall thickness and chamber size. Ejection fraction is 60%. Wall motion is normal Normal right ventricular size and function Both atria are normal in size Aortic valve is calcified. There is moderate aortic stenosis. Peak gradient is 49, mean 32 mmHg. Calculated aortic valve area is 1.3 cm??. There is no aortic regurgitation Trace to mild mitral and tricuspid regurgitation Estimated right ventricular systolic pressure is 48 mmHg Wall motion Left Ventricle The left ventricle is normal size. The left ventricular systolic function is normal. The left ventricular ejection fraction is within the normal range. Mild concentric left ventricular hypertrophy. There is normal LV segmental wall motion. There is no ventricular septal defect visualized. LVEF is 60%. Right Ventricle The right ventricle is normal size. The right ventricular systolic function is normal. Atria The left atrium size is normal. The right atrium size is normal. The interatrial septum is intact with no evidence for an atrial septal defect. Aortic Valve Aortic valve is calcified. Number of aortic valve leaflets could not be assessed. Moderate aortic stenosis. Highest mean aortic valve gradient is 31.79mmHg. Peak aortic valve gradient is 49.93mmHg. Calculated STEVIE by the continuity equation is1.3_cm2. No aortic regurgitation is present. Mitral Valve The mitral valve is normal in structure. No evidence of mitral valve stenosis. Trace to mild mitral regurgitation. Tricuspid Valve The tricuspid valve is normal in structure. There is no tricuspid valve stenosis. Trace to mild tricuspid regurgitation. The RVSP is 47.7_ mmHg. Pulmonic Valve The pulmonary valve is normal in structure. There is no pulmonic valvular stenosis. Trace pulmonic regurgitation. Great Vessels The aortic root is normal in size. The ascending aorta is normal in size. Aortic arch is not well visualized. IVC is normal in size and collapses >50% with inspiration. Pericardium There is no pericardial effusion. 2D Dimensions IVSD d PLAX 1.21 cm F: 0.6-1.0 Ao Root d 2.47 cm F: 2.7 - 3.3 LVPW d PLAX 1.20 cm F: 0.6 - 1.0 Ao Asc Diam d 2.91 cm F: 2.3 - 3.1 LVID d PLAX 5.34 cm F: 3.8 - 5.2 LVDs 3.60 cm F: 2.2 - 3.5 LV EF Teichholz 60.8 % FS 32.79 % LV EDV (Teich) 137.5 mL LV ESV (Teich) 54.0 mL Auto EF LV EDV A4C 102.3 mL LV EDV A2C 113.3 mL LV EDV BP 107.0 mL LV ESV A4C 42.4 mL LV ESV A2C 45.4 mL LV ESV BP 44.2 mL LVEF(%) A4C 58.6 % LVEF(%) A2C 59.9 % LVEF(%) BP 58.7 % LV SV A4C 59.9 ml LV SV A2C 67.9 ml LV SV BP 62.8 ml LV CO A4C 4.5 L/min LV CO A2C 5.3 L/min LV CO BP 4.9 L/min HR A4C 74.51 BPM HR A2C 78.09 BPM LV EDV Index (BP) LA Volume LA Length A4C 6.0 cm LA Length A2C 6.5 cm LA Area A4C s 22.11 cm2 LA Area A2C s 21.34 cm2 LA Vol A4C A-L 68.83 mL LA Vol A2C A-L 59.02 mL LA Vol Biplane A-L 66.4 mL LA Vol/BSA A4C A-L LA Vol/BSA A2C A-L LA Vol/BSA BP A-L 34.4 mL/m2 LA Vol A4C MOD 64.0 mL LA Vol A2C MOD 57.0 mL LA Vol BP MOD 62.8 mL RA Volume RA Area A4C 16.5 cm2 RA ESV A4C (A-L) 44.6mL RA Vol/BSA A4C A-L RA Length A4C 5.2 cm RA ESV A4C (MOD) 42.3mL LV Diastology MV E' medial 0.053 (>0.07 m/s) MV E Vmax 0.68 (0.4-1.3 m/s) MV E/E' MED 12.71 (<14) MV A Vmax 1.10 (0.4-1.3 m/s) E/A Ratio 0.6 Aortic Valve AoV Vmax 3.53 m/s LVOT Vmax 1.49 m/s AoV Peak Grad 49.9 mmHg LVOT Peak Grad 8.9 mmHg AoV Area (Vmax) 1.35 cm2 LVOT VTI 0.360 m AoV VTI 0.867 m LVOT Mean Grad 6.7 mmHg AoV Mean [place]ek[place]. 2.71 m/s LVOT SV 115.33 mL AoV Mean Grad 31.8 mmHg LVOT Diam s 2.00 cm AoV Area (VTI) 1.33 cm2 AV Regurg Peak Gr. 49.93 mmHg Velocity Ratio 0.42 Mitral Valve MV DT 225 (160-240 msec) MV Vmax TIPS 1.33 m/s MV Mean Grad 2.2 (<2mmHg) MV VTI 0.213 m Pulmonary Valve PV Vmax 1.61 (0.5-1.5 m/s) RVOT Vmax 1.02 m/s PV Peak Grad 10.4 mmHg RVOT Peak Gr. 4.1 mmHg PV Mean [place]ek[place] 1.17 m/s RVOT VTI 0.170 m PV Mean Grad 5.9 mmHg RVOT Mean Gr. 1.8 mmHg Tricuspid Valve RA Pressure 3.00 mmHg TR Vmax 3.34 m/s TV S' 0.16 m/s TR Peak Grad 44.7 mmHg RVSP (TR) 47.7 mmHg
== END ==
LOC: DI 02:13
PROVIDERS: PCP Family Medicine; Visit Provider Family Medicine
DX: I08.3 Combined rheumatic disorders of mitral, aortic and tricuspid valves (principal)
CPT/HCPCS: 93306